=== PATIENT | female | born 1965 | race Hispanic/Latino ===

== ENCOUNTER 2016-10-21 08:14 | Inpatient (IN) | payer MEDICAID, OTHER ==
[2016-10-21 09:23] LABS: BASO # 0.02 K/mm3 (0.0-2.0); BASO % 0.4 % (0.0-3.0); EOS % 0.4 % (1.5-5.0); GRAN # 4.51 (1.4-6.5); GRAN % 81.2 % (50.0-68.0); HEMATOCRIT 26.9 % (36.0-48.0); LYMPH # 0.4 (1.2-3.4); LYMPH % 6.3 % (22.0-35.0); MEAN CELL VOLUME 88.8 fl (80.0-105.0); MEAN CORPUSCULAR HEMOGLOBIN 26.7 pg (25.0-35.0); MEAN CORPUSCULAR HGB CONC 30.1 g/dl (31.0-37.0); MEAN PLATELET VOLUME 10.7 fl (7.0-11.0); MONO # 0.7 (0.1-0.6); MONO % 11.7 % (1.0-6.0); RED CELL DISTRIBUTION WIDTH 16.5 % (11.5-14.5); WHITE BLOOD COUNT 5.6 10^3/ul (4.5-11.0)
[2016-10-21 09:25] LABS: ALB/GLOB RATIO 0.7 (1.1-1.8); ALKALINE PHOSPHATASE 91 U/L (38-126); ALT/SGPT 31 U/L (7-56); AST/SGOT 41 U/L (14-36); BILIRUBIN,TOTAL 0.6 mg/dL (0.2-1.3); BLOOD UREA NITROGEN 9 mg/dL (7-21); CALCIUM 7.7 mg/dL (8.4-10.5); CARBON DIOXIDE 26 mmol/L (21-33); CHLORIDE 98 mmol/L (98-107); GFR AFRICAN-AMERICAN > 60; GLUCOSE,RANDOM 113 mg/dL (70-110); LIPASE 131 U/L (23-300); POTASSIUM 3.2 mmol/L (3.6-5.0); SODIUM 133 mmol/L (132-148)
[2016-10-21 09:28] LABS: INR 1.24 (0.93-1.08); PARTIAL THROMBOPLASTIN TIME 28.6 Seconds (23.7-30.8)
[2016-10-21] MEDS ORDERED: Potassium Chloride 20 mEq ER Tab PO STA (09:30)
--- NOTE | 2016-10-21 09:33 | ED PDOC ---
Arrival/HPI - General Chief Complaint: ENT Problem Time Seen by Provider: 10/21/16 08:20 Historian: Patient - History of Present Illness Narrative History of Present Illness (Text): 10/21/16 08:41 A 51 year old female, whose past medical history includes alcohol abuse and ascites, presents to the emergency department complaining of difficulty swallowing and abdominal bloating for 1 week. Patient reports only able to swallow soft food and can tolerate fluids. Also states abdomen feels "sore" and she gets shortness of breathe on exertion. Patient notes having difficulty sleeping due to symptoms. As a secondary complaint, she mentions currently having shingles for approximately 1 month ago. Patient has never been diagnosed for cancer. Was told her liver was inflamed. Patient notes experiencing shortness of breath when ambulating, weakness, but denies of any fever, nausea, vision changes, lightheadedness, or any other complaints. Patient has taken no medications for symptoms. PMD: Dr. Gillis Time/Duration: 1 week Symptom Onset: Sudden Symptom Course: Unchanged Activities at Onset: Eating (difficulty swallowing food) Context: Home Past Medical History - Provider Review Nursing Documentation Reviewed: Yes - Infectious Disease Hx of Infectious Diseases: None - Tetanus Immunization Tetanus Immunization: Unknown - Cardiac Hx Cardiac Disorders: No - Pulmonary Hx Respiratory Disorders: No - Neurological Hx Neurological Disorder: No - HEENT Hx HEENT Disorder: No - Renal Hx Renal Disorder: No - Endocrine/Metabolic Hx Endocrine Disorders: No - Hematological/Oncological Hx Blood Disorders: Yes Hx Anemia: Yes Hx Cirrhosis: Yes - Integumentary Hx Dermatological Disorder: No - Musculoskeletal/Rheumatological Hx Arthritis: Yes Hx Falls: Yes - Gastrointestinal Hx Gastrointestinal Disorders: Yes Other/Comment: umbilical hernia, 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, paracentesis - Genitourinary/Gynecological Hx Genitourinary Disorders: No - Psychiatric Hx Psychophysiologic Disorder: Yes Hx Anxiety: Yes Hx Depression: Yes Hx Substance Use: No Other/Comment: eating disorder with self-induced vomiting - Surgical History Hx Orthopedic Surgery: Yes (Mandibular fx) - Anesthesia Hx Anesthesia: No Hx Anesthesia Reactions: No Hx Malignant Hyperthermia: No - Suicidal Assessment Feels Threatened In Home Enviroment: No Family/Social History - Physician Review Nursing Documentation Reviewed: Yes Family/Social History: No Known Family HX Smoking Status: Never Smoked Hx Alcohol Use: Yes (6 beers daily) Frequency of alcohol use: Socially Amount per day: 6 Hx Substance Use: No Hx Substance Use Treatment: No Allergies/Home Meds Allergies/Adverse Reactions: Allergies No Known Allergies Allergy (Verified 11/02/15 01:19) Review of Systems - Physician Review All systems were reviewed & negative as marked: Yes - Review of Systems Constitutional: Other (weakness). absent: Fevers Eyes: absent: Vision Changes Respiratory: SOB (when ambulating) Gastrointestinal: Abdominal Pain (distended). absent: Nausea Neurological: absent: Dizziness Physical Exam Vital Signs Reviewed: Yes Vital Signs Temp Pulse Resp BP Pulse Ox 10/21/16 09:50 105 H 19 106/68 100 10/21/16 08:15 98.8 F 116 H 23 108/73 100 Temperature: Afebrile Blood Pressure: Normal Pulse: Tachycardic Respiratory Rate: Normal Appearance: Positive for: Well-Appearing Pain Distress: None Mental Status: Positive for: Alert and Oriented X 3 - Systems Exam Head: Present: Atraumatic, Normocephalic Pupils: Present: PERRL Extroacular Muscles: Present: EOMI Conjunctiva: Present: Normal Mouth: Present: Moist Mucous Membranes Neck: Present: Normal Range of Motion Respiratory/Chest: Present: Clear to Auscultation Cardiovascular: Present: Regular Rate and Rhythm, Normal S1, S2. No: Murmurs Abdomen: Present: Tenderness (epigastric tenderness), Distention (positive ascites), Guarding. No: Peritoneal Signs, Other Back: Present: Normal Inspection Upper Extremity: Present: Normal Inspection. No: Cyanosis, Edema Lower Extremity: Present: Normal Inspection. No: Edema Neurological: Present: GCS=15, CN II-XII Intact, Speech Normal Skin: Present: Rashes (face) Psychiatric: Present: Alert, Oriented x 3, Normal Insight, Normal Concentration Medical Decision Making ED Course and Treatment: 10/21/16 08:48 Impression: 51 year old female with difficulty swallowing and abdominal bloating. Physical exam shows facial rashes; clear lungs; distended abdomen, epigastric tenderness with guarding, no peritoneal problems. Differential Diagnosis included but are not limited to: Ascites with shortness of breath; Possible Herpes Zoster on face with no visual changes Plan: -- Abdomen Ultrasound -- Labs -- Calcium Gluconate -- Pepcid -- Urinalysis -- Reassess and disposition Prior Visits: Notes and results from previous visits were reviewed. Patient was last seen in the emergency department on 11/02/2015 for leg swelling. Patient was admitted. Progress Notes: 10/21/16 10:[address] Rivas who will accept patient to his service to Remote Telemetry. Calcium and Potassium replaced. - Lab Interpretations Lab Results: 10/21/16 08:25 10/21/16 08:25 Lab Results 10/21/16 08:25: Ammonia < 9 L 10/21/16 08:25: Sodium 133, Potassium 3.2 L, Chloride 98, Carbon Dioxide 26, Anion Gap 12, BUN 9, Creatinine 0.6, Est GFR ( Amer) > 60, Est GFR (Non- Af Amer) > 60, Random Glucose 113 H, Calcium 7.7 L, Magnesium 1.7, Total Bilirubin 0.6, AST 41 H, ALT 31, Alkaline Phosphatase 91, Total Protein 6.0, Albumin 2.5 L, Globulin 3.5, Albumin/Globulin Ratio 0.7 L, Lipase 131 10/21/16 08:25: PT 13.4 H, INR 1.24 H, APTT 28.6 10/21/16 08:25: WBC 5.6 D, RBC 3.03 L, Hgb 8.1 L, Hct 26.9 L, MCV 88.8, MCH 26.7, MCHC 30.1 L, RDW 16.5 H, Plt Count 170, MPV 10.7, Gran % 81.2 H, Lymph % ( Auto) 6.3 L, [place] % (Auto) 11.7 H, Eos % (Auto) 0.4 L, Baso % (Auto) 0.4, Gran # 4.51, Lymph # 0.4 L, [place] # 0.7 H, Eos # 0.0, Baso # 0.02 - RAD Interpretation Radiology Orders: 10/21/16 08:59 ABDOMEN COMPLETE [US] Stat - Medication Orders Current Medication Orders: Calcium Gluconate (Calcium Gluconate Iv) 1,000 mg IVP ONCE ONE Stop: 10/21/16 09:57 Discontinued Medications Famotidine (Pepcid) 20 mg IVP STAT STA Stop: 10/21/16 09:00 Last Admin: 10/21/16 09:13 Dose: 20 mg Potassium Chloride (Potassium Chloride Oral Soln) 40 meq PO STAT STA Stop: 10/21/16 09:56 - Scribe Statement The provider has reviewed the documentation as recorded by the Holly Ponce Provider Scribe Attestation: All medical record entries made by the Scribe were at my direction and personally dictated by me. I have reviewed the chart and agree that the record accurately reflects my personal performance of the history, physical exam, medical decision making, and the department course for this patient. I have also personally directed, reviewed, and agree with the discharge instructions and disposition. Disposition/Present on Arrival - Present on Arrival Any Indicators Present on Arrival: No History of DVT/PE: No History of Uncontrolled Diabetes: No Urinary Catheter: No History of Decub. Ulcer: No History Surgical Site Infection Following: None - Disposition Have Diagnosis and Disposition been Completed?: Yes Diagnosis: Ascites, Hypocalcemia, Hypokalemia Disposition: HOSPITALIZED Disposition Time: 10:09 Patient Plan: Admission Condition: FAIR Forms: [employer] (Martiniquais)
[2016-10-21 09:40] LABS: MAGNESIUM 1.7 mg/dL (1.7-2.2)
[2016-10-21] MEDS ORDERED: Potassium Chloride 40 mEq/30 ml LIQ UD PO STA (09:55)
--- NOTE | 2016-10-21 10:06 | US ---
HISTORY: abd pain r/o cholecytitis, ascites COMPARISON: None. TECHNIQUE: Sonographic evaluation of the abdomen. FINDINGS: LIVER: Measures 16.1 cm. Diffusely increased echogenicity of the liver parenchyma. Nodular contour consistent with hepatic cirrhosis. No mass. No biliary ductal dilatation. GALLBLADDER: Contracted. No gallstones. Thickened wall, nonspecific. COMMON BILE DUCT: Measures 4 mm. No stones. No dilatation. PANCREAS: Grossly limited visualization. Obscured by bowel gas. RIGHT KIDNEY: Measures 8.8cm. Normal echogenicity. No calculus, mass, or hydronephrosis. LEFT KIDNEY: Measures 8.9cm. Normal echogenicity. No calculus, mass, or hydronephrosis. SPLEEN: Normal in size and contour. No mass. AORTA: Obscured IVC: Obscured OTHER FINDINGS: Extensive ascites. IMPRESSION: Hepatic cirrhosis. Extensive ascites. No evidence of cholelithiasis. Thickened gallbladder wall, nonspecific.
[2016-10-21 13:58] LABS: URINE BILIRUBIN NEGATIVE (NEGATIVE); URINE BLOOD TRACE-INTACT (NEGATIVE); URINE GLUCOSE (UA) NEGATIVE (NEGATIVE); URINE KETONE TRACE mg/dL (NEGATIVE); URINE LEUKOCYTE ESTERASE NEGATIVE Leu/uL (NEGATIVE); URINE PROTEIN NEGATIVE mg/dL (<30 mg/dL); URINE UROBILINOGEN 0.2 E.U./dL (<1 E.U./dL)
[2016-10-21 13:59] LABS: URINE APPEARANCE CLEAR (CLEAR); URINE COLOR YELLOW (YELLOW)
--- NOTE | 2016-10-21 14:01 | CP.PCM.HP ---
<Ger Dickson - Last Filed: 10/21/16 16:34> History of Present Illness - History of Present Illness History of Present Illness: CC: Dysphagia, Ascites, Alcohol withdrawal HPI: Pt is a 51 yo F with significant PMH for alcohol abuse and cirrhosis, who reports 6 week history of dysphagia and abdominal swelling that has become progressively worse. She reports that has only been able to swallow soft foods and fluids, and has not been eating much. She states that her abdomen has become so swollen that it is pressing up into her chest, making it difficult to breathe even on mild exertion. She also reports that she has not had a bowel movement for the past 2 weeks, and has only been passing mucous. Pt has a longstanding history of alcohol abuse and was found to have cirrhosis in the past. She states that she has tried to quit, but is now drinking again; last drink was last night, 2-3 shots. She additionally reports shingles to her face for the past 6 weeks. Denies current nausea, vomiting, fevers, acute abdominal pain, chest pain, palpitations, recent cold symptoms, headache, N/T/W of the feet, urinary sx, or peripheral edema. Pt is a poor historian. In the ED, she was given potassium chloride and calcium gluconate for hypokalemia and hypocalcemia, and had an ultrasound of the abdomen showing hepatic cirrhosis and extensive ascites. On admission, patient was put on CIWA precautions, and treated for alcohol withdrawal. GI and IR teams were consulted for possible performance of paracentesis. PMD: Saleeb PMHX: Alcohol abuse, cirrhosis, depression, anxiety PSHX: Jaw fx & repair 15 years ago Prior Hospitalizations: Seen in 2016 for similar complaints Meds: States that she sometimes takes 12 aspirin throughout the day to help her go to sleep; denies other home medications Allergies: denies, NKDA Family hx: father - [place]; mother - [place] Social hx: - EtOH abuse x 20 years - denies tobacco use or recreational drugs - lives with brother - unemployed - does not have insurance Present on Admission - Present on Admission Any Indicators Present on Admission: No Review of Systems - Constitutional Constitutional: As Per HPI - EENT Eyes: As Per HPI, Tunnel Vision Ears: As Per HPI Nose/Mouth/Throat: As Per HPI - Cardiovascular Cardiovascular: As Per HPI - Respiratory Respiratory: As Per HPI - Gastrointestinal Gastrointestinal: As Per HPI - Musculoskeletal Musculoskeletal: As Per HPI - Integumentary Integumentary: As Per HPI - Neurological Neurological: As Per HPI - Psychiatric Psychiatric: As Per HPI - Endocrine Endocrine: As Per HPI - Hematologic/Lymphatic Hematologic: As Per HPI Past Patient History - Infectious Disease Hx of Infectious Diseases: None - Tetanus Immunizations Tetanus Immunization: Unknown - Past Medical History & Family History Past Medical History?: Yes - Past Social History Smoking Status: Never Smoked - CARDIAC Hx Cardiac Disorders: No - PULMONARY Hx Respiratory Disorders: No - NEUROLOGICAL Hx Neurological Disorder: No - HEENT Hx HEENT Problems: No - RENAL Hx Chronic Kidney Disease: No - ENDOCRINE/METABOLIC Hx Endocrine Disorders: No - HEMATOLOGICAL/ONCOLOGICAL Hx Blood Disorders: Yes Hx Anemia: Yes Hx Cirrhosis: Yes - INTEGUMENTARY Hx Dermatological Problems: No - MUSCULOSKELETAL/RHEUMATOLOGICAL Hx Arthritis: Yes Hx Falls: Yes - GASTROINTESTINAL Hx Gastrointestinal Disorders: Yes Other/Comment: umbilical hernia, 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, paracentesis - GENITOURINARY/GYNECOLOGICAL Hx Genitourinary Disorders: No - PSYCHIATRIC Hx Psychophysiologic Disorder: Yes Hx Anxiety: Yes Hx Depression: Yes Hx Substance Use: No Other/Comment: eating disorder with self-induced vomiting - SURGICAL HISTORY Hx Orthopedic Surgery: Yes (Mandibular fx) - ANESTHESIA Hx Anesthesia: No Hx Anesthesia Reactions: No Hx Malignant Hyperthermia: No Meds Allergies/Adverse Reactions: Allergies Allergy/AdvReac Type Severity Reaction Status Date / Time No Known Allergies Allergy Verified 10/21/16 18:47 Physical Exam - Head Exam Head Exam: ATRAUMATIC, NORMAL INSPECTION, NORMOCEPHALIC - Eye Exam Eye Exam: EOMI, Normal appearance, PERRL. absent: Periorbital tenderness Pupil Exam: NORMAL ACCOMODATION, PERRL. absent: Irregular - ENT Exam ENT Exam: Mucous Membranes Moist, Normal Exam - Neck Exam Neck exam: Positive for: Normal Inspection. Negative for: Tenderness - Respiratory Exam Respiratory Exam: Clear to Auscultation Bilateral, NORMAL BREATHING PATTERN - Cardiovascular Exam Cardiovascular Exam: REGULAR RHYTHM, RRR, +S1, +S2. absent: Rubs - GI/Abdominal Exam GI & Abdominal Exam: Distended, Firm, Hernia Additional comments: Caput Medusae noted. - Extremities Exam Extremities exam: Positive for: normal inspection - Neurological Exam Neurological exam: Alert, CN II-XII Intact, Oriented x3 - Psychiatric Exam Psychiatric exam: Depressed - Skin Skin Exam: Dry Results - Vital Signs Recent Vital Signs: Last Vital Signs Temp 98.6 F 10/21/16 11:07 Pulse 114 H 10/21/16 13:46 Resp 19 10/21/16 13:46 BP 103/69 10/21/16 13:46 Pulse Ox 96 10/21/16 13:46 - Labs Result Diagrams: 10/21/16 08:25 10/21/16 08:25 Assessment & Plan - Assessment and Plan (Free Text) Assessment: This is a 51 yr. old female with past medical histor of liver cirrhosis, etoh abuse who presents with dysphagia and abdominal swelling for 6 week.s Plan: 1. Ascites 2/2 cirrhosis -Patient admitted and expected to undergo a Therapeutic and Diagnostic Paracentesis -Ascitic fluid cx will be sent. -MELD Score of 9( has a 1.9% risk of mortality) - GI consult ordered. F/U with recs. - IR consult ordered. F/U with recs. - 2. Dysphagia -Order Speech and Swallow Eval -Advance diet as tolerated. -GI consult ordered. F/U with rec's 3. Anemia - Monitor H/H - Transfuse Hgb if under 7 - Iron studies panel if blood count continues to drop. 4. Abnormal electrolytes - Calcium gluconate & potassium chloride given to replete hypocalcemia & hypokalemia -Continue to monitor with serial CMP's. Will replete as needed. 5. Alcohol abuse/Withdrawal - urine alcohol & drug screen - counseled on EtOH cessation -Monitor for withdrawal symptoms. -CIWA protocol, Seizure protocol, Fall Protocols ordered. 6. Shingles -currently not complaining of pain. -Will monitor closely. GI & DVT PPX - Protonix - SCDs <Cory Ramachandran - Last Filed: 10/22/16 16:34> Results - Vital Signs Recent Vital Signs: Last Vital Signs Temp 99.5 F 10/22/16 09:07 Pulse 108 H 10/22/16 06:00 Resp 20 10/22/16 06:00 BP 93/63 L 10/22/16 06:00 Pulse Ox 95 10/22/16 06:00 - Labs Result Diagrams: 10/22/16 06:10 10/22/16 06:10 Labs: Laboratory Results - last 24 hr 0910/22/16 10/22/16 16:00 06:10 06:10 WBC 4.6 RBC 2.64 L Hgb 7.1 L Hct 23.6 L MCV 89.4 MCH 26.9 MCHC 30.1 L RDW 16.9 H Plt Count 149 MPV 10.4 Sodium 132 Potassium 3.3 L Chloride 104 Carbon Dioxide 23 Anion Gap 8 L BUN 8 Creatinine 0.6 Est GFR ( Amer) > 60 Est GFR (Non-Af Amer) > 60 Random Glucose 100 Calcium 7.4 L Magnesium 1.6 L Total Bilirubin 0.7 AST 24 ALT 35 Alkaline Phosphatase 75 Total Protein 5.3 L Albumin 2.1 L Globulin 3.2 Albumin/Globulin Ratio 0.7 L Fluid Source Fluid Appearance Fluid WBC Fluid RBC Fluid Tot Cell Count Fluid Neutrophils Fluid Lymphocytes Fld Monocyte/Macrophag Fluid Comment Urine Opiates Screen Negative Urine Methadone Screen Negative Ur Barbiturates Screen Negative Ur Phencyclidine Scrn Negative Ur Amphetamines Screen Negative U Benzodiazepines Scrn Negative U Oth Cocaine Metabols Negative U Cannabinoids Screen Negative BBK History Checked 10/22/16 10/22/16 11:36 16:10 WBC RBC Hgb Hct MCV MCH MCHC RDW Plt Count MPV Sodium Potassium Chloride Carbon Dioxide Anion Gap BUN Creatinine Est GFR ( Amer) Est GFR (Non-Af Amer) Random Glucose Calcium Magnesium Total Bilirubin AST ALT Alkaline Phosphatase Total Protein Albumin Globulin Albumin/Globulin Ratio Fluid Source Peritoneal/ascites Fluid Appearance Cloudy Fluid WBC 100.0 Fluid RBC 326.0 H Fluid Tot Cell Count 100 H Fluid Neutrophils 54.0 H Fluid Lymphocytes 46.0 H Fld Monocyte/Macrophag 0 Fluid Comment TEST NOT PERFORMED Urine Opiates Screen Urine Methadone Screen Ur Barbiturates Screen Ur Phencyclidine Scrn Ur Amphetamines Screen U Benzodiazepines Scrn U Oth Cocaine Metabols U Cannabinoids Screen BBK History Checked Patient has bt Attending/Attestation - Attestation I have personally seen and examined this patient.: Yes I have fully participated in the care of the patient.: Yes I have reviewed all pertinent clinical information: Yes Notes (Text): 10/22/16 16:26 Attending note; Patient seen and examined with resident. Patient is a 51 yo Female with significant PMH for alcohol abuse and cirrhosis, who reports 6 week history of dysphagia and abdominal swelling that has become progressively worse. Currently with significant ascites. Alcohol abuse/alcoholic cirrhosis with ascites; complete alcohol cessation is strongly recommended. Monitored in telemetry. IV Ativan ordered for withdrawal symptoms. Continue multivitamin, thiamine, folic acid. GERD/dysphagia; monitor closely. GI evaluation requested. Intervention radiology evaluation requested for paracentesis. The diagnosis and prognosis explained in detail. Upon discharge the patient will follow-up with PMD . 10/22/16 16:31 10/22/16 16:33
[2016-10-21 14:09] LABS: URINE RBC 0 - 2 /hpf (0-2); URINE WBC 0 - 2 /hpf (0-6)
[2016-10-21] MEDS ORDERED: Pneumococcal 23-Valent Vaccine IM ONE (20:33)
[2016-10-21 20:34] VITALS: BMI 18.5
[2016-10-22 06:26] LABS: MEAN CELL VOLUME 89.4 fl (80.0-105.0); MEAN CORPUSCULAR HEMOGLOBIN 26.9 pg (25.0-35.0); MEAN CORPUSCULAR HGB CONC 30.1 g/dl (31.0-37.0); MEAN PLATELET VOLUME 10.4 fl (7.0-11.0); RED CELL DISTRIBUTION WIDTH 16.9 % (11.5-14.5); WHITE BLOOD COUNT 4.6 10^3/ul (4.5-11.0)
[2016-10-22 06:37] LABS: HEMATOCRIT 23.6 % (36.0-48.0)
[2016-10-22 06:59] LABS: ALB/GLOB RATIO 0.7 (1.1-1.8); ALKALINE PHOSPHATASE 75 U/L (38-126); ALT/SGPT 35 U/L (7-56); AST/SGOT 24 U/L (14-36); BILIRUBIN,TOTAL 0.7 mg/dL (0.2-1.3); BLOOD UREA NITROGEN 8 mg/dL (7-21); CALCIUM 7.4 mg/dL (8.4-10.5); CARBON DIOXIDE 23 mmol/L (21-33); CHLORIDE 104 mmol/L (95-110); GFR AFRICAN-AMERICAN > 60; GLUCOSE,RANDOM 100 mg/dL (70-110); MAGNESIUM 1.6 mg/dL (1.7-2.2); POTASSIUM 3.3 mmol/L (3.6-5.0); SODIUM 132 mmol/L (132-148); TOTAL PROTEIN 5.3 g/dL (5.8-8.3)
[2016-10-22] MEDS: Multivitamin With Minerals Tab PO SCH (09:18)
--- NOTE | 2016-10-22 10:12 | CARD ---
APPROVED REPORT EKG Measurement Heart [id number] <Conclusion> Sinus tachycardia Low voltage QRS Borderline ECG
[2016-10-22] MEDS ORDERED: POLYMYXIN B TOP ONE (10:48)
[2016-10-22] MEDS ORDERED: BACITRACIN TOP ONE (10:48)
[2016-10-22 11:52] LABS: BODY FLUID TYPE PERITONEAL/ASCITES
[2016-10-22 12:09] LABS: BF GROSS APPEARANCE CLOUDY (CLEAR); BODY FLUID TOTAL COUNT 100 (0-0)
[2016-10-22] MEDS ORDERED: Barium Sulfate Susp 2.1% w/v, 2.0% w/w 450 mL Bottle PO ONE (12:27)
[2016-10-22] MEDS ORDERED: Iohexol 300 100 ML IJ ONE (14:19)
--- NOTE | 2016-10-22 15:32 | CP.PCM.PN ---
<Ger Dickson - Last Filed: 10/22/16 16:35> Subjective - Date & Time of Evaluation Date of Evaluation: 10/22/16 Time of Evaluation: 10:29 - Subjective Subjective: This patient was seen and examined at bedside. The reports no change in her abdominal discomfort since yesterday. The patient reports one bowel movement and denies blood but reports some mucus in it. The patient denies any chest pain, shortness of breath, nausea, vomiting, dizziness, changes in vision, palpitations, or any other complaints. Objective - Vital Signs/Intake and Output Vital Signs (last 24 hours): Temp Pulse Resp BP Pulse Ox 99.5 F 108 H 20 93/63 L 95 10/22/16 09:07 10/22/16 06:00 10/22/16 06:00 10/22/16 06:00 10/22/16 06:00 Intake and Output: 10/22/16 10/22/16 06:59 18:59 Intake Total 300 900 Output Total 0 Balance 300 900 - Medications Medications: Current Medications Lorazepam (Ativan) 1 mg IVP Q3 PRN; Protocol PRN Reason: Agitation Multivitamins/Minerals (Therapeutic-M Tab) 1 tab PO 0800 [facility] Last Admin: 10/22/16 09:18 Dose: 1 tab Ondansetron HCl (Zofran Inj) 4 mg IVP Q4H PRN PRN Reason: Nausea/Vomiting Pantoprazole Sodium (Protonix Inj) 40 mg IVP DAILY [facility] Last Admin: 10/22/16 10:19 Dose: 40 mg Thiamine HCl (Vitamin B1 Tab) 100 mg PO DAILY [facility] Last Admin: 10/22/16 09:18 Dose: 100 mg - Labs Labs: 10/22/16 06:10 10/22/16 06:10 PT 13.4 Seconds (9.9-11.8) H 10/21/16 08:25 INR 1.24 (0.93-1.08) H 10/21/16 08:25 APTT 28.6 Seconds (23.7-30.8) 10/21/16 08:25 - Head Exam Head Exam: ATRAUMATIC, NORMAL INSPECTION, NORMOCEPHALIC - Eye Exam Eye Exam: EOMI, Normal appearance, PERRL Pupil Exam: NORMAL ACCOMODATION, PERRL. absent: Irregular - ENT Exam ENT Exam: Mucous Membranes Moist - Neck Exam Neck Exam: Normal Inspection - Respiratory Exam Respiratory Exam: Clear to Ausculation Bilateral, NORMAL BREATHING PATTERN. absent: Accessory Muscle Use, Chest Wall Tenderness, Prolonged Expiratory Phase - Cardiovascular Exam Cardiovascular Exam: REGULAR RHYTHM, RRR, +S1, +S2. absent: Rubs - GI/Abdominal Exam Additional comments: Caput madusae appreciated. Swelling noted. - Back Exam Back Exam: NORMAL INSPECTION. absent: paraspinal tenderness - Neurological Exam Neurological Exam: Alert, Awake, CN II-XII Intact - Psychiatric Exam Psychiatric exam: Normal Affect - Skin Additional comments: abdominal vein engorgement 2/2 to etoh abuse Assessment and Plan - Assessment and Plan (Free Text) Assessment: This is a 51 yr. old female with past medical history of liver cirrhosis, etoh abuse who presents with dysphagia and abdominal swelling for 6 weeks. Plan: 1. Ascites 2/2 cirrhosis -Patient admitted and underwent a Therapeutic and Diagnostic Paracentesis today. -Ascitic fluid cx will be sent. -MELD Score of 9( has a 1.9% risk of mortality) - GI consult ordered. F/U with recs. - IR consult ordered. F/U with recs. -Abdomen/pelvis CT pending 2. Dysphagia -Order Speech and Swallow Eval -Advance diet as tolerated. -GI consult ordered. F/U with rec's 3. Anemia - Hgb:7.1. Monitor H/H - Transfuse Hgb if under 7 - Iron studies panel if blood count continues to drop. 4. Abnormal electrolytes - Calcium gluconate & potassium chloride given to replete hypocalcemia & hypokalemia -Continue to monitor with serial CMP's. Will replete as needed. 5. Alcohol abuse/Withdrawal - urine alcohol & drug screen - counseled on EtOH cessation -Monitor for withdrawal symptoms. -CIWA protocol, Seizure protocol, Fall Protocols ordered. 6. Shingles vs. bacterial infection -currently not complaining of pain. Given Bacitracin ointment today -Will monitor closely. GI & DVT PPX - Protonix - SCDs <Cory Ramachandran - Last Filed: 10/22/16 18:58> Objective - Vital Signs/Intake and Output Vital Signs (last 24 hours): Temp Pulse Resp BP Pulse Ox 100.4 F H 67 20 101/68 95 10/22/16 17:35 10/22/16 16:00 10/22/16 16:00 10/22/16 16:00 10/22/16 16:00 Intake and Output: 10/22/16 10/22/16 06:59 18:59 Intake Total 300 900 Output Total 0 Balance 300 900 - Medications Medications: Current Medications Acetaminophen (Tylenol 325mg Tab) 650 mg PO Q4H PRN PRN Reason: Temperature Last Admin: 10/22/16 17:35 Dose: 650 mg Albumin Human (Albumin Human 25% (12.5 Gm/50 Ml)) 12.5 gm IV Q8 [facility] Stop: 10/23/16 06:01 Piperacillin Sod/Tazobactam Sod (Zosyn 3.375 In Ns 100ml) 100 mls @ 200 mls/hr IVPB Q6 [facility] PRN Reason: Protocol Stop: 10/29/16 18:01 Vancomycin HCl (Vancomycin 1gm) 1 gm in 250 mls @ 167 mls/hr IVPB STAT STA PRN Reason: Protocol Stop: 10/22/16 19:25 Lorazepam (Ativan) 1 mg IVP Q3 PRN; Protocol PRN Reason: Agitation Multivitamins/Minerals (Therapeutic-M Tab) 1 tab PO 0800 [facility] Last Admin: 10/22/16 09:18 Dose: 1 tab Ondansetron HCl (Zofran Inj) 4 mg IVP Q4H PRN PRN Reason: Nausea/Vomiting Pantoprazole Sodium (Protonix Inj) 40 mg IVP DAILY [facility] Last Admin: 10/22/16 10:19 Dose: 40 mg Thiamine HCl (Vitamin B1 Tab) 100 mg PO DAILY [facility] Last Admin: 10/22/16 09:18 Dose: 100 mg - Labs Labs: 10/22/16 06:10 10/22/16 06:10 PT 13.4 Seconds (9.9-11.8) H 10/21/16 08:25 INR 1.24 (0.93-1.08) H 10/21/16 08:25 APTT 28.6 Seconds (23.7-30.8) 10/21/16 08:25 Attending/Attestation - Attestation I have personally seen and examined this patient.: Yes I have fully participated in the care of the patient.: Yes I have reviewed all pertinent clinical information, including history, physical exam and plan: Yes Notes (Text): 10/22/16 18:54 Attending note; Patient seen and examined with resident. Patient is a 51 yo Female with significant PMH for alcohol abuse and cirrhosis, who reports 6 week history of dysphagia and abdominal swelling that has become progressively worse. Currently with significant ascites. Status post ascites; 4.3 L removed. Started on IV albumen. 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 Possible infectious versus malignant etiology suspected. Culture and cytology ordered. CT abdomen and pelvis ordered to rule out malignancy. Alcohol abuse/alcoholic cirrhosis with ascites; complete alcohol cessation is strongly recommended. IV Ativan ordered for withdrawal symptoms. Continue multivitamin, thiamine, folic acid. Cirrhosis;GI evaluation requested. Dysphagia; swallow evaluation requested. Continue soft diet. Aspiration precautions. Upon discharge the patient will follow-up with PMD .
[2016-10-22] MEDS ORDERED: cefTRIAXone 1 gm 1 GM/100 ML BAG IVPB SCH (16:30)
[2016-10-22] MEDS ORDERED: Potassium Chloride 20 mEq ER Tab PO STA (16:33)
--- NOTE | 2016-10-22 16:40 | CP.PCM.PN ---
<Jena Altman - Last Filed: 10/22/16 16:40> Subjective - Date & Time of Evaluation Date of Evaluation: 10/22/16 Time of Evaluation: 10:00 - Subjective Subjective: seen and examined at the bedside earlier today, the chart was reviewed. Patient denies nausea, vomiting, fever or chills, shortness of breath or chest pain. No acute overnight events reported. Objective - Vital Signs/Intake and Output Vital Signs (last 24 hours): Temp Pulse Resp BP Pulse Ox 99.5 F 108 H 20 93/63 L 95 10/22/16 09:07 10/22/16 06:00 10/22/16 06:00 10/22/16 06:00 10/22/16 06:00 Intake and Output: 10/22/16 10/22/16 06:59 18:59 Intake Total 300 900 Output Total 0 Balance 300 900 - Medications Medications: Current Medications Lorazepam (Ativan) 1 mg IVP Q3 PRN; Protocol PRN Reason: Agitation Multivitamins/Minerals (Therapeutic-M Tab) 1 tab PO 0800 [facility] Last Admin: 10/22/16 09:18 Dose: 1 tab Ondansetron HCl (Zofran Inj) 4 mg IVP Q4H PRN PRN Reason: Nausea/Vomiting Pantoprazole Sodium (Protonix Inj) 40 mg IVP DAILY [facility] Last Admin: 10/22/16 10:19 Dose: 40 mg Thiamine HCl (Vitamin B1 Tab) 100 mg PO DAILY [facility] Last Admin: 10/22/16 09:18 Dose: 100 mg - Labs Labs: 10/22/16 06:10 10/22/16 06:10 PT 13.4 Seconds (9.9-11.8) H 10/21/16 08:25 INR 1.24 (0.93-1.08) H 10/21/16 08:25 APTT 28.6 Seconds (23.7-30.8) 10/21/16 08:25 - Constitutional Appears: No Acute Distress - Head Exam Head Exam: NORMOCEPHALIC - Eye Exam Eye Exam: Normal appearance. absent: Scleral icterus - ENT Exam ENT Exam: Mucous Membranes Moist - Neck Exam Neck Exam: Normal Inspection - Cardiovascular Exam Cardiovascular Exam: +S1, +S2 - GI/Abdominal Exam GI & Abdominal Exam: Soft, Tenderness, Hernia (umbilical). absent: Guarding, Organomegaly, Rebound - Extremities Exam Extremities Exam: Normal Capillary Refill. 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 Herrera. <Olman Herrera V - Last Filed: 10/22/16 23:51> Objective - Vital Signs/Intake and Output Vital Signs (last 24 hours): Temp Pulse Resp BP Pulse Ox 99.7 F H 64 19 97/65 L 99 10/22/16 21:04 10/22/16 22:00 10/22/16 21:04 10/22/16 21:04 10/22/16 21:04 Intake and Output: 10/22/16 10/23/16 18:59 06:59 Intake Total 900 120 Output Total 1 Balance 900 119 - Medications Medications: Current Medications Acetaminophen (Tylenol 325mg Tab) 650 mg PO Q4H PRN PRN Reason: Temperature Last Admin: 10/22/16 17:35 Dose: 650 mg Albumin Human (Albumin Human 25% (12.5 Gm/50 Ml)) 12.5 gm IV Q8 [facility] Stop: 10/23/16 06:01 Last Admin: 10/22/16 20:55 Dose: 12.5 gm Piperacillin Sod/Tazobactam Sod (Zosyn 3.375 In Ns 100ml) 100 mls @ 200 mls/hr IVPB Q6 [facility] PRN Reason: Protocol Stop: 10/29/16 18:01 Lorazepam (Ativan) 1 mg IVP Q3 PRN; Protocol PRN Reason: Agitation Multivitamins/Minerals (Therapeutic-M Tab) 1 tab PO 0800 [facility] Last Admin: 10/22/16 09:18 Dose: 1 tab Ondansetron HCl (Zofran Inj) 4 mg IVP Q4H PRN PRN Reason: Nausea/Vomiting Pantoprazole Sodium (Protonix Inj) 40 mg IVP DAILY [facility] Last Admin: 10/22/16 10:19 Dose: 40 mg Thiamine HCl (Vitamin B1 Tab) 100 mg PO DAILY [facility] Last Admin: 10/22/16 09:18 Dose: 100 mg - Labs Labs: 10/22/16 06:10 10/22/16 06:10 PT 13.4 Seconds (9.9-11.8) H 10/21/16 08:25 INR 1.24 (0.93-1.08) H 10/21/16 08:25 APTT 28.6 Seconds (23.7-30.8) 10/21/16 08:25 Attending/Attestation - Attestation I have personally seen and examined this patient.: Yes I have fully participated in the care of the patient.: Yes I have reviewed all pertinent clinical information, including history, physical exam and plan: Yes Notes (Text): This patient was seen and evaluated here earlier. This is an addendum to the GE progress report dictated by Jena Altman APN Status post large-volume paracentesis, receiving antibiotic woman History of dysphagia. Would request esophagogram 10/22/16 23:50
[2016-10-22] MEDS: Piperacillin/Tazobact 3.375 gm 100 ML IVPB SCH (17:09)
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
[2016-10-22] MEDS ORDERED: Vancomycin 1gm in NS 250ml 1 GM/250 ML BAG IVPB STA (17:56)
[2016-10-22 18:45] LABS: IRON 12 ug/dL (45-180)
--- NOTE | 2016-10-22 18:58 | US ---
PROCEDURE: Ultrasound guided paracentesis. HISTORY: Alcoholic cirrhosis. Recurrent ascites with abdominal pain. Needs paracentesis P PHYSICIAN(S): Andres Lagos MD. TECHNIQUE: The relative risks and indications for the procedure were explained to the patient and informed written consent obtained. Sonography of the abdomen was performed in a supine position. This revealed a moderate amount of non-loculated ascites, greatest in the right lower quadrant. A puncture site was selected and the area was prepped and draped in the usual sterile fashion. 1% Xylocaine was used to anesthetize the skin and soft tissues. A 7 Urdu paracentesis catheter was trocared into the right lower quadrant. Turbid, chylous fluid was aspirated. The appropriate labs were sent. IMPRESSION: Ultrasound-guided paracentesis in the right lower quadrant. Turbid, chylous fluid was aspirated. The appropriate labs were sent.
[2016-10-22] MEDS ORDERED: Sodium Chloride 0.9% 1,000 ML IV STA (20:01)
[2016-10-22] MEDS: Albumin Human 25% (12.5 gm/50 ml) IV SCH ×2 (20:55→22:00)
--- NOTE | 2016-10-22 21:09 | CT ---
EXAM: CT Abdomen and Pelvis With Intravenous Contrast CLINICAL HISTORY: 51 years old, female; Condition or disease; Liver condition; Cirrhosis; Additional info: R/O hepatoma, cirrhosis TECHNIQUE: Axial computed tomography images of the abdomen and pelvis with intravenous contrast. All CT scans at this facility use one or more dose reduction techniques, viz.: automated exposure control; ma/kV adjustment per patient size (including targeted exams where dose is matched to indication; i.e. head); or iterative reconstruction technique. Coronal and sagittal reformatted images were created and reviewed. CONTRAST: 100 mL of omni 300 administered intravenously. COMPARISON: CT - ABD PELVIS W/O PO OR IV CONT 11/02/2015 FINDINGS: Lower thorax: Minimal atelectasis/scarring. ABDOMEN: Liver: Lobulated contour. Increased heterogeneity of liver parenchyma compared to previous examination with apparent multiple subcentimeter hypodensities. Gallbladder and bile ducts: No calcified stones. No ductal dilation. Pancreas: No ductal dilation. No mass. Spleen: No splenomegaly. Adrenals: No mass. Kidneys and ureters: No mass. No hydronephrosis. Stomach and bowel: Apparent mild mural thickening of several loops of small bowel. Mild mural thickening versus underdistention cecum, proximal ascending colon. No obstruction. Appendix: No findings to suggest acute appendicitis. PELVIS: Bladder: Apparent mild bladder wall thickening. Incomplete distention, limiting evaluation. Reproductive: Unremarkable as visualized. ABDOMEN and PELVIS: Intraperitoneal space: Moderate to large free fluid within abdomen and pelvis. Bones/joints: No acute fracture. Soft tissues: Small umbilical hernia containing fluid. Vasculature: Mild varices within upper abdomen. No aneurysm. Lymph nodes: No pathologically enlarged lymph nodes. IMPRESSION: 1. Cirrhosis. Increase in heterogeneity of liver parenchyma. Underlying malignancy/metastases not excluded. Recommend MRI. 2. Moderate to large ascites. 3. Possible enteritis/colitis, nonspecific. 4. Mild cystitis vs underdistention. Correlate with urinalysis. 5. Incidental/non-acute findings are described above.
[2016-10-22 21:39] LABS: FOLATE 11.8 ng/mL
[2016-10-23] MEDS: Piperacillin/Tazobact 3.375 gm 100 ML IVPB SCH ×4 (00:05→17:02)
[2016-10-23] MEDS ORDERED: Sodium Chloride 0.9% 500 ML IV STA (00:45)
[2016-10-23] MEDS ORDERED: Albumin Human 25% (25 gm/100 ml) IV STA (02:21)
[2016-10-23] MEDS: Sodium Chloride 0.9% 1,000 ML IV SCH ×2 (04:35→20:32)
[2016-10-23] MEDS: Albumin Human 25% (12.5 gm/50 ml) IV SCH (05:24)
[2016-10-23 06:25] LABS: MEAN CELL VOLUME 89.5 fl (80.0-105.0); MEAN CORPUSCULAR HEMOGLOBIN 27.1 pg (25.0-35.0); MEAN CORPUSCULAR HGB CONC 30.3 g/dl (31.0-37.0); MEAN PLATELET VOLUME 10.6 fl (7.0-11.0); RED CELL DISTRIBUTION WIDTH 16.8 % (11.5-14.5); WHITE BLOOD COUNT 3.1 10^3/ul (4.5-11.0)
[2016-10-23 06:43] LABS: ALB/GLOB RATIO 0.8 (1.1-1.8); ALKALINE PHOSPHATASE 49 U/L (38-126); ALT/SGPT 30 U/L (7-56); AST/SGOT 20 U/L (14-36); BILIRUBIN,TOTAL 0.6 mg/dL (0.2-1.3); BLOOD UREA NITROGEN 5 mg/dL (7-21); CALCIUM 7.2 mg/dL (8.4-10.5); CARBON DIOXIDE 23 mmol/L (21-33); CHLORIDE 108 mmol/L (95-110); GFR AFRICAN-AMERICAN > 60; GLUCOSE,RANDOM 83 mg/dL (70-110); POTASSIUM 3.1 mmol/L (3.6-5.0); SODIUM 136 mmol/L (132-148); TOTAL PROTEIN 5.1 g/dL (5.8-8.3)
[2016-10-23 06:46] LABS: HEMATOCRIT 22.1 % (36.0-48.0)
[2016-10-23] MEDS: Multivitamin With Minerals Tab PO SCH (08:28)
--- NOTE | 2016-10-23 12:37 | CP.PCM.PN ---
<[place] - Last Filed: 10/23/16 12:50> Subjective - Date & Time of Evaluation Date of Evaluation: 10/23/16 Time of Evaluation: 10:30 - Subjective Subjective: Patient was seen and examined at bedside this morning. Per nursing, the patient became hypotensive overnight (BP 74/44). The patient was given albumin which brought up her blood pressure up to 89/56. The patient was reporting of feeling better today. The patient denies any chest pain, shortness of breath, nausea, vomiting, lightheaded, dizzy, changes in vision, or any other complaints. Objective - Vital Signs/Intake and Output Vital Signs (last 24 hours): Temp Pulse Resp BP Pulse Ox 99 F 100 H 18 102/61 100 10/23/16 12:26 10/23/16 12:26 10/23/16 12:26 10/23/16 12:26 10/23/16 08:19 Intake and Output: 10/23/16 10/23/16 06:59 18:59 Intake Total 2019 0 Output Total Balance 2018 0 - Medications Medications: Current Medications Acetaminophen (Tylenol 325mg Tab) 650 mg PO Q4H PRN PRN Reason: Temperature Last Admin: 10/22/16 17:35 Dose: 650 mg Albumin Human (Albumin Human 25% (12.5 Gm/50 Ml)) 12.5 gm IV Q8 [facility] Stop: 10/23/16 14:01 Piperacillin Sod/Tazobactam Sod (Zosyn 3.375 In Ns 100ml) 100 mls @ 200 mls/hr IVPB Q6 [facility] PRN Reason: Protocol Stop: 10/29/16 18:01 Last Admin: 10/23/16 05:26 Dose: 200 mls/hr Sodium Chloride (Sodium Chloride 0.9%) 1,000 mls @ 75 mls/hr IV .[id number] [facility] Last Admin: 10/23/16 04:35 Dose: 75 mls/hr Lorazepam (Ativan) 1 mg IVP Q3 PRN; Protocol PRN Reason: Agitation Multivitamins/Minerals (Therapeutic-M Tab) 1 tab PO 0800 [facility] Last Admin: 10/23/16 08:28 Dose: 1 tab Ondansetron HCl (Zofran Inj) 4 mg IVP Q4H PRN PRN Reason: Nausea/Vomiting Pantoprazole Sodium (Protonix Inj) 40 mg IVP DAILY [facility] Last Admin: 10/23/16 10:18 Dose: 40 mg Thiamine HCl (Vitamin B1 Tab) 100 mg PO DAILY [facility] Last Admin: 10/23/16 10:18 Dose: 100 mg - Labs Labs: 10/23/16 06:00 10/23/16 06:00 PT 13.4 Seconds (9.9-11.8) H 10/21/16 08:25 INR 1.24 (0.93-1.08) H 10/21/16 08:25 APTT 28.6 Seconds (23.7-30.8) 10/21/16 08:25 - Head Exam Head Exam: ATRAUMATIC, NORMAL INSPECTION, NORMOCEPHALIC - Eye Exam Eye Exam: EOMI, Normal appearance, PERRL. absent: Nystagmus Pupil Exam: NORMAL ACCOMODATION, PERRL. absent: Irregular - ENT Exam ENT Exam: Mucous Membranes Moist, Normal Exam - Neck Exam Neck Exam: Full ROM, Normal Inspection - Respiratory Exam Respiratory Exam: Clear to Ausculation Bilateral, NORMAL BREATHING PATTERN. absent: Accessory Muscle Use, Wheezes - Cardiovascular Exam Cardiovascular Exam: REGULAR RHYTHM, RRR, +S1, +S2. absent: Gallop, Rubs - GI/Abdominal Exam GI & Abdominal Exam: Normal Bowel Sounds - Extremities Exam Extremities Exam: Full ROM - Back Exam Back Exam: NORMAL INSPECTION. absent: paraspinal tenderness - Neurological Exam Neurological Exam: Alert, Awake, CN II-XII Intact - Psychiatric Exam Psychiatric exam: Normal Affect, Normal Mood - Skin Skin Exam: Dry Assessment and Plan - Assessment and Plan (Free Text) Assessment: This is a 51 yr. old female with past medical history of liver cirrhosis, etoh abuse who presents with dysphagia and abdominal swelling for 6 weeks. Plan: 1. Ascites 2/2 cirrhosis -Patient admitted and underwent a Therapeutic and Diagnostic Paracentesis today. -Ascitic fluid cx will be sent. -MELD Score of 9( has a 1.9% risk of mortality) - GI consult ordered. F/U with recs. - IR consult ordered. F/U with recs. -ID consult rec's appreciated. Will order Esophogram. -Abdomen/pelvis CT:showed Cirrhosis, Moderate ascites, Possible enteritis/ colitis, and Mild cystitis 2. Dysphagia -Speech and Swallow Eval pending. -Advance diet as tolerated. -GI consult ordered. F/U with rec's 3. Anemia - Hgb:6.7. Patient was Type and Crossmatched. Patient given 1 Unit of PRBC's. - Monitor H/H - Transfuse Hgb if under 7 - Iron studies panel if blood count continues to drop. 4. Abnormal electrolytes - Calcium gluconate & potassium chloride given to replete hypocalcemia & hypokalemia -Continue to monitor with serial CMP's. Will replete as needed. 5. Alcohol abuse/Withdrawal - urine alcohol & drug screen - counseled on EtOH cessation -Monitor for withdrawal symptoms. -Continue CIWA protocol, Seizure protocol, Fall Protocols ordered. 6. Shingles vs. bacterial infection -currently not complaining of pain. Given Bacitracin ointment today -Will monitor closely. GI & DVT PPX - Continue Protonix - Continue SCDs <Rob VELASQUEZ,[place] - Last Filed: 10/27/16 17:37> Objective - Vital Signs/Intake and Output Vital Signs (last 24 hours): Temp Pulse Resp BP Pulse Ox 98.8 F 98 H 19 104/57 L 97 10/27/16 08:12 10/27/16 10:00 10/27/16 08:12 10/27/16 10:55 10/27/16 08:12 Intake and Output: 10/27/16 10/27/16 06:59 18:59 Intake Total 1080 0 Balance 1080 0 - Medications Medications: Current Medications Acetaminophen (Tylenol 325mg Tab) 650 mg PO Q4H PRN PRN Reason: Temperature Last Admin: 10/23/16 16:52 Dose: 650 mg Folic Acid (Folic Acid) 1 mg PO DAILY [facility] Last Admin: 10/27/16 09:21 Dose: 1 mg Furosemide (Lasix) 20 mg PO DAILY [facility] Last Admin: 10/27/16 10:55 Dose: 20 mg Lorazepam (Ativan) 1 mg IVP Q3 PRN; Protocol PRN Reason: Agitation Magnesium Oxide (Mag-Ox) 400 mg PO TID [facility] Last Admin: 10/27/16 14:16 Dose: 400 mg Multivitamins/Minerals (Therapeutic-M Tab) 1 tab PO 0800 [facility] Last Admin: 10/27/16 09:22 Dose: Not Given Ondansetron HCl (Zofran Inj) 4 mg IVP Q4H PRN PRN Reason: Nausea/Vomiting Pantoprazole Sodium (Protonix Inj) 40 mg IVP DAILY [facility] Last Admin: 10/27/16 09:22 Dose: 40 mg Spironolactone (Aldactone) 50 mg PO DAILY [facility] Last Admin: 10/27/16 10:55 Dose: 50 mg Thiamine HCl (Vitamin B1 Tab) 100 mg PO DAILY [facility] Last Admin: 10/27/16 09:21 Dose: 100 mg - Labs Labs: 10/27/16 05:20 10/27/16 05:20 PT 14.1 Seconds (9.9-11.8) H 10/24/16 06:40 INR 1.31 (0.93-1.08) H 10/24/16 06:40 APTT 28.6 Seconds (23.7-30.8) 10/21/16 08:25 Attending/Attestation - Attestation I have personally seen and examined this patient.: Yes I have fully participated in the care of the patient.: Yes I have reviewed all pertinent clinical information, including history, physical exam and plan: Yes Notes (Text): 10/27/16 17:33 Patient was seen and examined with medical science liaison. 51 yo Female with significant PMH for alcohol abuse and cirrhosis, who reports 6 week history of dysphagia and abdominal swelling that has become progressively worse. She is status post ascites; 4.3 L removed. 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 Cultures are pending at this time. Patient hemoglobin dropped to 6.7.PRBC .She has been given 1 unit of PRBC.There is no evidence of active GI bleeding.Patient has been evaluated by GI and is scheduled for EGD tomorrow. Management plan was discussed in detail with patient Education was provided. 10/27/16 17:35
[2016-10-23] MEDS ORDERED: Albumin Human 25% (12.5 gm/50 ml) IV SCH (14:00)
--- NOTE | 2016-10-23 14:25 | PN ---
DATE: 10/23/2016 SUBJECTIVE: The patient is in bed, in no acute distress. PHYSICAL EXAMINATION: VITAL SIGNS: Temperature is 99, blood pressure is 90/50, respiratory rate of 18, heart rate of 90. HEENT: Unremarkable. NECK: Supple. LUNGS: Decreased breath sounds. HEART: Normal S1 and S2. ABDOMEN: Soft. LABORATORY EXAMINATION: Reveals a white count of 3.1, hemoglobin of 6.7 and platelets of 110. Chemistries revealed the BUN of 5, creatinine of 0.6. Urinalysis is noted. Peritoneal fluid is noted to have 100 wbc's. Microbiology reveals the ascitic culture has no growth. ASSESSMENT AND PLAN: This is a 51-year-old female with right malar area erythematous lesion, allergic reaction, fungal disease and the patient with alcoholism, liver cirrhosis, ascites, and depression. Currently, on cream. The patient had a CAT scan of the abdomen and pelvis and had a paracentesis not consistent with spontaneous bacterial peritonitis. CAT scan did show cirrhosis, large ascites, mild cystitis. Cultures pending on Zosyn, unremarkable urinalysis. We will follow with you. Yunior Hdz MD
--- NOTE | 2016-10-23 15:55 | CP.PCM.PN ---
<Jena Altman - Last Filed: 10/23/16 15:54> Subjective - Date & Time of Evaluation Date of Evaluation: 10/23/16 Time of Evaluation: 10:00 - Subjective Subjective: seen and examined at the bedside earlier today, status post paracentesis yesterday, removed 4800 cc of ascitic fluid. The patient does report relief, she denies symptoms of dysphagia she is tolerating oral intake. No reports of any overt GI bleed, no acute overnight events reported. She reports grayish greenish BM. Had CT scan of abdomen and pelvis yesterday the report was reviewed: Cirrhosis, increase in heterogenicity of liver parenchyma underlying malignancy/metastasis not excluded, recommended MRI, moderate to large ascites, possible enteritis/ colitis, nonspecific, mild cystitis versus under distention. Objective - Vital Signs/Intake and Output Vital Signs (last 24 hours): Temp Pulse Resp BP Pulse Ox 99.5 F 102 H 18 117/64 100 10/23/16 15:21 10/23/16 15:21 10/23/16 15:21 10/23/16 15:21 10/23/16 08:19 Intake and Output: 10/23/16 10/23/16 06:59 18:59 Intake Total 2019 805 Output Total Balance 2018 805 - Medications Medications: Current Medications Acetaminophen (Tylenol 325mg Tab) 650 mg PO Q4H PRN PRN Reason: Temperature Last Admin: 10/22/16 17:35 Dose: 650 mg Piperacillin Sod/Tazobactam Sod (Zosyn 3.375 In Ns 100ml) 100 mls @ 200 mls/hr IVPB Q6 [facility] PRN Reason: Protocol Stop: 10/29/16 18:01 Last Admin: 10/23/16 12:31 Dose: Not Given Sodium Chloride (Sodium Chloride 0.9%) 1,000 mls @ 75 mls/hr IV .[id number] Last Admin: 10/23/16 04:35 Dose: 75 mls/hr Lorazepam (Ativan) 1 mg IVP Q3 PRN; Protocol PRN Reason: Agitation Multivitamins/Minerals (Therapeutic-M Tab) 1 tab PO 0800 [facility] Last Admin: 10/23/16 08:28 Dose: 1 tab Ondansetron HCl (Zofran Inj) 4 mg IVP Q4H PRN PRN Reason: Nausea/Vomiting Pantoprazole Sodium (Protonix Inj) 40 mg IVP DAILY [facility] Last Admin: 10/23/16 10:18 Dose: 40 mg Thiamine HCl (Vitamin B1 Tab) 100 mg PO DAILY [facility] Last Admin: 10/23/16 10:18 Dose: 100 mg - Labs Labs: 10/23/16 06:00 10/23/16 06:00 PT 13.4 Seconds (9.9-11.8) H 10/21/16 08:25 INR 1.24 (0.93-1.08) H 10/21/16 08:25 APTT 28.6 Seconds (23.7-30.8) 10/21/16 08:25 - Constitutional Appears: No Acute Distress - Head Exam Head Exam: NORMOCEPHALIC - Eye Exam Eye Exam: Normal appearance. absent: Scleral icterus - ENT Exam ENT Exam: Mucous Membranes Moist - Respiratory Exam Respiratory Exam: NORMAL BREATHING PATTERN. absent: Respiratory Distress - Cardiovascular Exam Cardiovascular Exam: +S1, +S2 - GI/Abdominal Exam GI & Abdominal Exam: Distended (less distended, status post paracentesis, pressure dressing dry and intact), Soft, Hernia, Normal Bowel Sounds. absent: Guarding, Tenderness, Rebound - Extremities Exam Extremities Exam: Normal Capillary Refill. 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 Seen and discussed with Dr. Herrera. <Olman Herrera V - Last Filed: 10/23/16 22:14> Objective - Vital Signs/Intake and Output Vital Signs (last 24 hours): Temp Pulse Resp BP Pulse Ox 99.3 F 102 H 18 117/64 99 10/23/16 18:53 10/23/16 16:00 10/23/16 16:00 10/23/16 16:00 10/23/16 16:00 Intake and Output: 10/23/16 10/24/16 18:59 06:59 Intake Total 805 Balance 805 - Medications Medications: Current Medications Acetaminophen (Tylenol 325mg Tab) 650 mg PO Q4H PRN PRN Reason: Temperature Last Admin: 10/23/16 16:52 Dose: 650 mg Piperacillin Sod/Tazobactam Sod (Zosyn 3.375 In Ns 100ml) 100 mls @ 200 mls/hr IVPB Q6 [facility] PRN Reason: Protocol Stop: 10/29/16 18:01 Last Admin: 10/23/16 17:02 Dose: 200 mls/hr Sodium Chloride (Sodium Chloride 0.9%) 1,000 mls @ 75 mls/hr IV .[id number] Last Admin: 10/23/16 20:32 Dose: 75 mls/hr Lorazepam (Ativan) 1 mg IVP Q3 PRN; Protocol PRN Reason: Agitation Multivitamins/Minerals (Therapeutic-M Tab) 1 tab PO 0800 [facility] Last Admin: 10/23/16 08:28 Dose: 1 tab Ondansetron HCl (Zofran Inj) 4 mg IVP Q4H PRN PRN Reason: Nausea/Vomiting Pantoprazole Sodium (Protonix Inj) 40 mg IVP DAILY [facility] Last Admin: 10/23/16 10:18 Dose: 40 mg Thiamine HCl (Vitamin B1 Tab) 100 mg PO DAILY [facility] Last Admin: 10/23/16 10:18 Dose: 100 mg - Labs Labs: 10/23/16 16:30 10/23/16 06:00 PT 13.4 Seconds (9.9-11.8) H 10/21/16 08:25 INR 1.24 (0.93-1.08) H 10/21/16 08:25 APTT 28.6 Seconds (23.7-30.8) 10/21/16 08:25 Attending/Attestation - Attestation I have personally seen and examined this patient.: Yes I have fully participated in the care of the patient.: Yes I have reviewed all pertinent clinical information, including history, physical exam and plan: Yes Notes (Text): This is an addendum to GI progress report dictated by Jena Altman APN.The patient was seen and examined earlier. Medical records, lab studies, imagings were reviewed. Last 24 hours events reviewed. Agreed with the above treatment plan as outlined in Jena Altman,SUBASSEMBLER's notes the with the addition of the following decompensated cirrhosis secondary to EtOH no obvious melena GI bleeding. Drop in blood count could also be partly secondary to hydration patient was hypotensive before had fluid challenge Patient also complaining of intermittent episodes of dysphagia status post large-volume paracentesis Scheduled for a EGD in a.m. 10/23/16 22:13
[2016-10-23 16:47] LABS: HEMATOCRIT 28.8 % (36.0-48.0)
--- NOTE | 2016-10-23 20:37 | CON ---
HISTORY OF PRESENT ILLNESS: The patient is a 51-year-old female with a history of alcohol abuse and ascites. The patient was admitted on the medical side for evaluation of abdominal bloating. The patient was not able to tolerate food. Psych consult was called for evaluation of possible depressive symptoms. The patient was seen and examined. The patient reported that she was not feeling well overnight. The patient also reported that she had low blood pressure. The patient said that she was there irritable and angry overnight because she was waken up every 2 hours because of the low blood pressure. The patient said at present moment she does not feel depressed, she does not want to kill herself or others. The patient denied hearing voices, denied seeing things, denied paranoid ideations. The patient does not present to be psychotic, but mildly irritable. The patient denied anxiety symptoms. The patient reported that she has a history of depression and she went through the therapy when her mother was killed in the motor vehicle accident and the patient was the commercial trailer truck driver. The patient said at present moment she is not on any therapy, she does not need to be on any medication or she does not want to see therapist in the community. The patient said that at present moment she feels fine and she refused to talk to this aligner typewriter further. PHYSICAL EXAMINATION VITAL SIGNS: Stable. Temperature 99.3, pulse 100, blood pressure 93/61, respirations 20, oxygen saturation is 100%. MEDICATIONS: Reviewed. The patient is on Tylenol, Ativan, multivitamin, Zofran, Protonix, Zosyn, sodium chloride, vitamin B1. LABORATORY DATA: Labs reviewed. The patient has WBCs of 3.1, hemoglobin is 6.7 and hematocrit 22.1. Chemistry reviewed. AST and ALT within normal limits. Vitamin B12 is 935. The patient also has potassium 3.1. Urinalysis showed blood trace. Toxicology is negative for any substances. MENTAL STATUS EXAMINATION: The patient appears to be alert and oriented, irritable. Intense eye contact. Speech was underproductive. She has no answers. Mood described "I'm feeling fine, I don't need your help." Affect was constricted. Thought process concrete. Thought content: The patient denied visual, auditory or tactile hallucinations. Denied paranoid ideation. The patient denied thoughts of harming herself or others, denied intents or plan. Insight and judgement seems to be fair. Impulses are well controlled. IMPRESSION: Rule out mood disorder due to general medical condition, rule out alcohol disorder. The patient had traumatic event when her mother was killed in a motor vehicle accident and the patient was the commercial trailer truck driver. The patient denied any flashbacks or nightmares about that event. PLAN: This aligner typewriter does not feel that the patient needs to be on any psychotropic medication. The patient knows resources in the community. The patient was advised in case of the worsening of the symptoms call 911 or just go to the nearest emergency room. The patient knows about therapy as well as has contact information for the previous therapist who she had before. This aligner typewriter will sign off, should you have any questions give me a call back. Please advise the patient to stop drinking as well as discuss Vivitrol shots. Criselda Mc MD
[2016-10-24] MEDS: Piperacillin/Tazobact 3.375 gm 100 ML IVPB SCH ×2 (00:11→05:11)
[2016-10-24 07:29] LABS: BASO # 0.01 K/mm3 (0.0-2.0); BASO % 0.3 % (0.0-3.0); EOS # 0.1 (0.0-0.7); EOS % 1.7 % (1.5-5.0); GRAN # 1.92 (1.4-6.5); GRAN % 66.7 % (50.0-68.0); HEMATOCRIT 28.1 % (36.0-48.0); LYMPH # 0.3 (1.2-3.4); LYMPH % 11.5 % (22.0-35.0); MEAN CELL VOLUME 89.5 fl (80.0-105.0); MEAN CORPUSCULAR HEMOGLOBIN 27.4 pg (25.0-35.0); MEAN CORPUSCULAR HGB CONC 30.6 g/dl (31.0-37.0); MONO # 0.6 (0.1-0.6); MONO % 19.8 % (1.0-6.0)
[2016-10-24 07:37] LABS: INR 1.31 (0.93-1.08)
[2016-10-24 07:45] LABS: ALB/GLOB RATIO 0.8 (1.1-1.8); ALKALINE PHOSPHATASE 47 U/L (38-126); ALT/SGPT 26 U/L (7-56); AST/SGOT 24 U/L (14-36); BILIRUBIN,TOTAL 0.9 mg/dL (0.2-1.3); BLOOD UREA NITROGEN 4 mg/dL (7-21); CALCIUM 7.1 mg/dL (8.4-10.5); CARBON DIOXIDE 22 mmol/L (21-33); CHLORIDE 110 mmol/L (98-107); GFR AFRICAN-AMERICAN > 60; GLUCOSE,RANDOM 83 mg/dL (70-110); POTASSIUM 3.5 mmol/L (3.6-5.0); SODIUM 139 mmol/L (132-148); TOTAL PROTEIN 4.7 g/dL (5.8-8.3)
[2016-10-24 08:01] LABS: WHITE BLOOD COUNT 2.9 10^3/ul (4.5-11.0)
[2016-10-24] MEDS: Sodium Chloride 0.9% 1,000 ML IV SCH ×2 (09:35→20:35)
[2016-10-24] MEDS: Multivitamin With Minerals Tab PO SCH (09:37)
[2016-10-24] MEDS ORDERED: Propofol 10 mg/ml Inj (20 ML) ONE (13:20)
--- NOTE | 2016-10-24 13:21 | PN ---
DATE: 10/25/2016 SUBJECTIVE: The patient is in bed, in no acute distress, nontoxic. PHYSICAL EXAMINATION: VITAL SIGNS: Temperature is 98, blood pressure is 90/60, respiratory rate of 16. HEENT: Unremarkable. NECK: Supple. LUNGS: Decreased breath sounds. HEART: Normal S1 and S2. ABDOMEN: Soft. LABORATORY EXAMINATION: Reveals a white count of 3.1, hemoglobin of 8.9 and chemistries revealed the BUN of 4, creatinine of 0.7. Urinalysis is noted. Peritoneal fluid reveals 100 WBC's, 54% polys, 36% lymphs. Blood cultures have no growth. Ascitic fluid has no growth. Jena Altman's note is reviewed from yesterday. Review of orders reveals the patient to be on Zosyn. ASSESSMENT AND PLAN: This is a 51-year-old female with right malar area erythematous lesion, allergic reaction, fungal disease and the patient with alcoholism, liver cirrhosis, ascites, and depression. CAT scan of the abdomen and pelvis noted. Cultures negative and peritoneal fluid cultures negative and study is negative for infection. No evidence of spontaneous bacterial peritonitis. We will discontinue the Zosyn, and she should be on Cipro 750 mg once weekly for spontaneous bacterial peritonitis, prophylaxis. Yunior Hdz MD
[2016-10-24] MEDS ORDERED: cefTRIAXone (Rocephin) 1 gm Inj ONE (13:28)
[2016-10-24] MEDS ORDERED: Sodium Chloride 0.9% 1,000 ML IV SCH (14:00)
--- NOTE | 2016-10-24 14:56 | CP.PCM.PN ---
<YessiSnow Hill - Last Filed: 10/24/16 15:10> Subjective - Date & Time of Evaluation Date of Evaluation: 10/24/16 Time of Evaluation: 07:54 - Subjective Subjective: Patient was seen and examined at bedside. The patient was reporting some left flank pain s/p paracentesis day 1. She rates the pain a 5/10 in severity. The patient denies any chest pain, shortness of breath, nausea, vomiting, lightheadedness, dizziness, changes in vision, sore throat, or any other complaints Objective - Vital Signs/Intake and Output Vital Signs (last 24 hours): Temp Pulse Resp BP Pulse Ox 99.1 F 84 18 99/68 L 98 10/24/16 14:35 10/24/16 14:35 10/24/16 14:35 10/24/16 14:35 10/24/16 14:35 Intake and Output: 10/24/16 10/24/16 06:59 18:59 Intake Total 500 0 Balance 500 0 - Medications Medications: Current Medications Acetaminophen (Tylenol 325mg Tab) 650 mg PO Q4H PRN PRN Reason: Temperature Last Admin: 10/23/16 16:52 Dose: 650 mg Sodium Chloride (Sodium Chloride 0.9%) 1,000 mls @ 75 mls/hr IV .[id number] [facility] Last Admin: 10/24/16 09:35 Dose: 75 mls/hr Sodium Chloride (Sodium Chloride 0.9%) 1,000 mls @ 75 mls/hr IV .[id number] [facility] Stop: 10/24/16 16:01 Lorazepam (Ativan) 1 mg IVP Q3 PRN; Protocol PRN Reason: Agitation Multivitamins/Minerals (Therapeutic-M Tab) 1 tab PO 0800 [facility] Last Admin: 10/24/16 09:37 Dose: Not Given Ondansetron HCl (Zofran Inj) 4 mg IVP Q4H PRN PRN Reason: Nausea/Vomiting Pantoprazole Sodium (Protonix Inj) 40 mg IVP DAILY [facility] Last Admin: 10/24/16 09:32 Dose: 40 mg Thiamine HCl (Vitamin B1 Tab) 100 mg PO DAILY [facility] Last Admin: 10/24/16 09:37 Dose: Not Given - Labs Labs: 10/24/16 06:40 10/24/16 06:40 PT 14.1 Seconds (9.9-11.8) H 10/24/16 06:40 INR 1.31 (0.93-1.08) H 10/24/16 06:40 APTT 28.6 Seconds (23.7-30.8) 10/21/16 08:25 Assessment and Plan - Assessment and Plan (Free Text) Assessment: This is a 51 yr. old female with past medical history of liver cirrhosis, etoh abuse who presents with dysphagia and abdominal swelling for 6 weeks. Plan: 1. Ascites 2/2 cirrhosis -Patient admitted and underwent a Therapeutic and Diagnostic Paracentesis today. -Ascitic fluid cx will be sent. -MELD Score of 9( has a 1.9% risk of mortality) - GI consult ordered. F/U with recs. - IR consult ordered. F/U with recs. -ID consult rec's appreciated. Will order Esophogram. -Abdomen/pelvis CT:showed Cirrhosis, Moderate ascites, Possible enteritis/ colitis, and Mild cystitis 2. Dysphagia -Currently on regular diet. Patient will be monitored closely. -GI consult ordered. F/U with rec's -EGD showed concerns for possible nasopharyngeal cancer. Will order CT scan of neck with IV contrast. 3. Anemia - Hgb:8.6. Patient was Type and Crossmatched. Patient given 1 Unit of PRBC's. - Monitor H/H - Transfuse Hgb if under 7 - Iron studies panel if blood count continues to drop. 4. Abnormal electrolytes - Calcium gluconate & potassium chloride given to replete hypocalcemia & hypokalemia -Continue to monitor with serial CMP's. Will replete as needed. 5. Alcohol abuse/Withdrawal - urine alcohol & drug screen - counseled on EtOH cessation -Monitor for withdrawal symptoms. -Continue CIWA protocol, Seizure protocol, Fall Protocols ordered. 6. Shingles vs. bacterial infection -currently not complaining of pain. Continue Bacitracin -Will monitor closely. GI & DVT PPX - Continue Protonix - Continue SCDs <Rob VELASQUEZ,[facility] - Last Filed: 10/27/16 17:38> Objective - Vital Signs/Intake and Output Vital Signs (last 24 hours): Temp Pulse Resp BP Pulse Ox 98.8 F 98 H 19 104/57 L 97 10/27/16 08:12 10/27/16 10:00 10/27/16 08:12 10/27/16 10:55 10/27/16 08:12 Intake and Output: 10/27/16 10/27/16 06:59 18:59 Intake Total 1080 0 Balance 1080 0 - Medications Medications: Current Medications Acetaminophen (Tylenol 325mg Tab) 650 mg PO Q4H PRN PRN Reason: Temperature Last Admin: 10/23/16 16:52 Dose: 650 mg Folic Acid (Folic Acid) 1 mg PO DAILY [facility] Last Admin: 10/27/16 09:21 Dose: 1 mg Furosemide (Lasix) 20 mg PO DAILY [facility] Last Admin: 10/27/16 10:55 Dose: 20 mg Lorazepam (Ativan) 1 mg IVP Q3 PRN; Protocol PRN Reason: Agitation Magnesium Oxide (Mag-Ox) 400 mg PO TID [facility] Last Admin: 10/27/16 14:16 Dose: 400 mg Multivitamins/Minerals (Therapeutic-M Tab) 1 tab PO 0800 [facility] Last Admin: 10/27/16 09:22 Dose: Not Given Ondansetron HCl (Zofran Inj) 4 mg IVP Q4H PRN PRN Reason: Nausea/Vomiting Pantoprazole Sodium (Protonix Inj) 40 mg IVP DAILY [facility] Last Admin: 10/27/16 09:22 Dose: 40 mg Spironolactone (Aldactone) 50 mg PO DAILY [facility] Last Admin: 10/27/16 10:55 Dose: 50 mg Thiamine HCl (Vitamin B1 Tab) 100 mg PO DAILY [facility] Last Admin: 10/27/16 09:21 Dose: 100 mg - Labs Labs: 10/27/16 05:20 10/27/16 05:20 PT 14.1 Seconds (9.9-11.8) H 10/24/16 06:40 INR 1.31 (0.93-1.08) H 10/24/16 06:40 APTT 28.6 Seconds (23.7-30.8) 10/21/16 08:25 Attending/Attestation - Attestation I have personally seen and examined this patient.: Yes I have fully participated in the care of the patient.: Yes I have reviewed all pertinent clinical information, including history, physical exam and plan: Yes Notes (Text): 10/27/16 17:37 Patient was seen and examined with medical dosimetrist. Agreed with resident assessment and plan. a 51 yo Female with significant PMH for alcohol abuse and cirrhosis, who reports 6 week history of dysphagia and abdominal swelling that has become progressively worse, was found to have ascites. Status post ascites; 4.3 L removed. 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 Possible infectious versus malignant etiology suspected. Dysphagia; and anemia, SP EGD today that showed possible pharyngeal cancer, CT scan of neck and ENT consult is requested. Management plan was discussed in detail with patient Education was provided.
[2016-10-24 16:30] LABS: MAGNESIUM 1.5 mg/dL (1.7-2.2); PHOSPHOROUS 2.9 mg/dL (2.5-4.5)
[2016-10-25 08:19] LABS: HEMATOCRIT 29.9 % (36.0-48.0); MEAN CELL VOLUME 90.9 fl (80.0-105.0); MEAN CORPUSCULAR HGB CONC 30.8 g/dl (31.0-37.0); RED CELL DISTRIBUTION WIDTH 16.3 % (11.5-14.5); WHITE BLOOD COUNT 5.3 10^3/ul (4.5-11.0)
[2016-10-25 08:25] LABS: BLOOD UREA NITROGEN 4 mg/dL (7-21); CALCIUM 7.5 mg/dL (8.4-10.5); CARBON DIOXIDE 24 mmol/L (21-33); CHLORIDE 108 mmol/L (98-107); GFR AFRICAN-AMERICAN > 60; GLUCOSE,RANDOM 92 mg/dL (70-110); MAGNESIUM 1.3 mg/dL (1.7-2.2); POTASSIUM 3.1 mmol/L (3.6-5.0); SODIUM 139 mmol/L (132-148)
[2016-10-25] MEDS ORDERED: Iohexol 350 MG/100 ML VIAL ONE (08:57)
[2016-10-25] MEDS ORDERED: Magnesium Sulfate 2 GM in Sodium Chloride 0.9% 100 ML IVPB ONE (09:11)
[2016-10-25] MEDS: Multivitamin With Minerals Tab PO SCH (09:27)
--- NOTE | 2016-10-25 13:06 | CP.PCM.PN ---
Subjective - Date & Time of Evaluation Date of Evaluation: 10/25/16 Time of Evaluation: 08:30 - Subjective Subjective: Patient seen and examined at bedside. No acute events reported overnight. States she ate breakfast this morning without any complaints. Denies any new complaints today. Review of Systems - Review of Systems All systems: reviewed and no additional remarkable complaints except - Constitutional Constitutional: absent: Fever, Chills, Weakness - EENT Eyes: absent: Blurred Vision - Cardiovascular Cardiovascular: absent: Chest Pain, Dyspnea - Respiratory Respiratory: absent: Cough, Dyspnea - Gastrointestinal Gastrointestinal: absent: Abdominal Pain, Nausea, Vomiting - Genitourinary Genitourinary: absent: Dysuria, Flank Pain - Musculoskeletal Musculoskeletal: absent: Back Pain - Neurological Neurological: absent: Tremor - Psychiatric Psychiatric: absent: Anxiety Objective - Vital Signs/Intake and Output Vital Signs (last 24 hours): Temp Pulse Resp BP Pulse Ox 99.2 F 112 H 20 95/66 L 100 10/25/16 06:00 10/25/16 10:00 10/25/16 06:00 10/25/16 06:00 10/25/16 06:00 Intake and Output: 10/25/16 10/25/16 06:59 18:59 Intake Total 740 Balance 740 - Medications Medications: Current Medications Acetaminophen (Tylenol 325mg Tab) 650 mg PO Q4H PRN PRN Reason: Temperature Last Admin: 10/23/16 16:52 Dose: 650 mg Sodium Chloride (Sodium Chloride 0.9%) 1,000 mls @ 75 mls/hr IV .[id number] [facility] Last Admin: 10/24/16 20:35 Dose: 75 mls/hr Potassium Chloride (Potassium Chloride 20 Meq/100 Ml) 20 meq in 100 mls @ 50 mls/hr IVPB Q2H [facility] Stop: 10/25/16 13:14 Last Admin: 10/25/16 09:28 Dose: 50 mls/hr Lorazepam (Ativan) 1 mg IVP Q3 PRN; Protocol PRN Reason: Agitation Multivitamins/Minerals (Therapeutic-M Tab) 1 tab PO 0800 [facility] Last Admin: 10/25/16 09:27 Dose: 1 tab Ondansetron HCl (Zofran Inj) 4 mg IVP Q4H PRN PRN Reason: Nausea/Vomiting Pantoprazole Sodium (Protonix Inj) 40 mg IVP DAILY [facility] Last Admin: 10/25/16 09:27 Dose: 40 mg Thiamine HCl (Vitamin B1 Tab) 100 mg PO DAILY [facility] Last Admin: 10/25/16 09:33 Dose: 100 mg - Labs Labs: 10/25/16 08:11 10/25/16 08:11 PT 14.1 Seconds (9.9-11.8) H 10/24/16 06:40 INR 1.31 (0.93-1.08) H 10/24/16 06:40 APTT 28.6 Seconds (23.7-30.8) 10/21/16 08:25 - Constitutional Appears: Well, No Acute Distress - Head Exam Head Exam: NORMAL INSPECTION - Eye Exam Eye Exam: EOMI - ENT Exam ENT Exam: Normal Exam - Neck Exam Neck Exam: Full ROM - Respiratory Exam Respiratory Exam: Clear to Ausculation Bilateral. absent: Rhonchi, Wheezes - Cardiovascular Exam Cardiovascular Exam: REGULAR RHYTHM, +S1, +S2 - GI/Abdominal Exam GI & Abdominal Exam: Soft, Normal Bowel Sounds. absent: Tenderness, Organomegaly - Extremities Exam Extremities Exam: absent: Calf Tenderness - Neurological Exam Neurological Exam: Alert, Awake, Oriented x3 - Psychiatric Exam Psychiatric exam: Normal Mood Assessment and Plan - Assessment and Plan (Free Text) Plan: This is a 51 year old female with past medical history of cirrhosis and alcohol abuse who presented with with abdominal swelling and dysphagia. 1. Ascites / Cirrhosis - CT abd/pelvis showed cirrhosis and moderate ascites. Patient is s/p paracentesis earlier this week. GI is following the patient. 2. Dysphagia - Patient is s/p EGD which showed gastritis, erythema at the GE junction, abnormal oropharynx, polypoid friable lesion (1.5 cm) in the hypopharyngeal area. Biopsies were taken and pending. CT neck is ordered. ENT evaluation is requested. Continue with PPI. Continue with diet as tolerated. 3. Anemia - Continue to monitor and transfuse as needed. 4. Hypokalemia / hypomagnesemia - Will replete and repeat. 5. Alcohol abuse - Patient was counselled on alcohol abstinence. Continue with multivitamin, folic acid and thiamine. Continue with ativan prn. Continue with protonix for GI prophylaxis and SCDs for DVT prophylaxis.
--- NOTE | 2016-10-25 14:28 | PN ---
DATE: 10/25/2016 SUBJECTIVE: The patient is in bed, in no acute distress, nontoxic. PHYSICAL EXAMINATION: VITAL SIGNS: On exam, temperature is 98, blood pressure is 112/70 and respiratory rate of 16. HEENT: Unremarkable. NECK: Supple. LUNGS: Has decreased breath sounds. HEART: Normal S1 and S2. ABDOMEN: Soft. LABORATORY DATA: Reveals white count of 5.3, hemoglobin of 9, and platelets of 120. Chemistries are noted. Review of order reveals the patient to be off antibiotics. The patient has CAT scan of the neck, the results are pending. ASSESSMENT AND PLAN: This is a 51-year-old female with right malar area erythematous lesion, allergic reaction, fungal disease, and the patient has alcoholism, liver cirrhosis, ascites, depression, and cultures negative. Currently, off antibiotics, recommend p.o. Cipro 750 mg once weekly for spontaneous bacterial peritonitis and the patient for endoscopy. We will check CAT scan of the neck, results pending. Yunior Hdz MD
--- NOTE | 2016-10-25 15:54 | CT ---
PROCEDURE: CT scan of the neck dated 10/26/2015 HISTORY: Rule out nasopharyngeal carcinoma COMPARISON: No prior study available for comparison TECHNIQUE: Contiguous helical/ transaxial sections of the neck performed following intravenous injection of approximately 100 cc Omnipaque 350 contrast material. Coronal and sagittal reformats generated. Radiation dose: DLP 178.62 mGy-cm This CT exam was performed using one or more of the following dose reduction techniques: Automated exposure control, adjustment of the mA and/or kV according to patient size, and/or use of iterative reconstruction technique. FINDINGS: The current study reveals a small approximately 8.7 x 8.7 mm rounded low-attenuation focus in the region left palatine tonsil surrounded by a thin hyperdense rim. The possibility of invasive lesion such as squamous cell carcinoma not excluded. Direct visualization recommended. There is also of prominence of the soft palate though this could be positional. Asymmetry of the vallecula likely due to some head tilt and possibly some residual and or retained secretion. Some encroaching lingual tonsil may contribute. Free margin of the epiglottis unremarkable. There is also asymmetry of the pyriform sinuses and aryepiglottic folds however due to significant crossing streak and beam hardening artifact arising from dental amalgam evaluation is limited. Again direct visualization suggested. Vocal cords appear relatively symmetric. Cervical vasculature unremarkable. The common carotid arteries, carotid bifurcations and internal carotid artery is widely patent without evidence of significant atherosclerotic disease occlusion significant stenosis or dissection. Note is made of elliptical shaped area of enhancement in the region adjacent to the posterior superior aspect of the left cavernous sinus. Which is of uncertain etiology. Rule out anomalous drainage venous pattern. There is a typical dominant the appearance of the left vertebral artery with small caliber right vertebral artery. Vertebral arteries however are patent throughout so far as can be seen. Jugular veins are typically asymmetric right side more larger in caliber than the left. Evaluation of the thyroid is limited due to crossing streak and beam hardening artifact arising from dense clavicles and shoulder girdles. Submandibular and parotid glands unremarkable. . Multilevel degenerative spondylosis of the cervical spine most notably affecting the C4-C5 through the C6-C7 levels. Minor chronic anterior stature loss of the C5 segment with some minimal anterior subluxation C4 over C5 and kyphotic angulation deformity centered at C4-C5 levels. Lung apices are clear. No evidence of pneumothorax. . IMPRESSION: Impression: There is a small on hypodense focus within the region the left palatine tonsil that measures approximately 8.7 x 8.7 mm with a peripheral slightly hyperdense rim. Possibility of an invasive lesion such as squamous cell carcinoma not excluded. Clinical correlation recommended. Prominence of the soft palate -nonspecific though no discrete lesion is identified There is also mild asymmetry of the pyriform sinuses there also no discrete lesions identified in this location. Consider followup but direct visualization if squamous cell carcinoma suspected clinically.
[2016-10-25] MEDS: Sodium Chloride 0.9% 1,000 ML IV SCH (17:23)
[2016-10-26] MEDS ORDERED: HYDROmorphone 0.5 mg/0.5 ml ISec IVP STA (05:46)
[2016-10-26 07:03] LABS: HEMATOCRIT 30.5 % (36.0-48.0); MEAN CORPUSCULAR HEMOGLOBIN 27.8 pg (25.0-35.0); MEAN CORPUSCULAR HGB CONC 30.5 g/dl (31.0-37.0); MEAN PLATELET VOLUME 11.1 fl (7.0-11.0); RED CELL DISTRIBUTION WIDTH 16.6 % (11.5-14.5); WHITE BLOOD COUNT 5.1 10^3/ul (4.5-11.0)
[2016-10-26 07:33] LABS: BLOOD UREA NITROGEN 5 mg/dL (7-21); CALCIUM 7.5 mg/dL (8.4-10.5); CARBON DIOXIDE 23 mmol/L (21-33); CHLORIDE 106 mmol/L (98-107); GFR AFRICAN-AMERICAN > 60; GLUCOSE,RANDOM 94 mg/dL (70-110); MAGNESIUM 1.8 mg/dL (1.7-2.2); SODIUM 137 mmol/L (132-148)
[2016-10-26] MEDS: Multivitamin With Minerals Tab PO SCH (09:36)
--- NOTE | 2016-10-26 13:56 | PN ---
DATE: 10/26/2016 SUBJECTIVE: The patient is in bed, seen early this morning. PHYSICAL EXAMINATION: VITAL SIGNS: Temperature is 99, blood pressure is 100/60, respiratory rate of 18, heart rate of 90. HEENT: Reveals the patient's lesions improved, still somewhat permanent. NECK: Supple. LUNGS: Decreased breath sounds. HEART: Normal S1 and S2. ABDOMEN: Soft, nontender. LABORATORY DATA: Reveals a white count of 5, hemoglobin of 9. Chemistries are noted and microbiology is noted. Blood cultures negative. Urine cultures negative. Orders reveals the patient to be off of antibiotics. The patient had a CAT scan of the neck, soft tissue read by Dr. Navid Garcia. Small hypodense foci and region of the left palatine tonsil measures 8 x 8 with a peripherally slightly hypodense rim, invasive lesions such as squamous cell, worsen one cannot be occluded. Clinical correlation is what Dr. Garcia is recommending and Dr. Evans's note is reviewed. ASSESSMENT AND PLAN: A 51-year-old female with right malar erythematous lesion, etiology not clear; alcoholism; liver cirrhosis; ascites; depression. Currently, off of antibiotics. May use Cipro 750 once weekly for spontaneous bacterial peritonitis prophylaxis. ENT consultation reviewed. CAT scan findings. We will follow with you. Yunior Hzd MD
--- NOTE | 2016-10-26 15:05 | CP.PCM.PN ---
<LocoCandis albert - Last Filed: 10/26/16 15:02> Subjective - Date & Time of Evaluation Date of Evaluation: 10/26/16 Time of Evaluation: 15:02 - Subjective Subjective: Patient has been seen and examined at bedside. She denies any fevers, chills, chest pain, SOB, N/V/D. constipation. She does complain of abdominal pain with distension. Objective - Vital Signs/Intake and Output Vital Signs (last 24 hours): Temp Pulse Resp BP Pulse Ox 98.7 F 114 H 20 98/69 L 97 10/26/16 06:00 10/26/16 10:00 10/26/16 06:00 10/26/16 06:00 10/26/16 06:00 Intake and Output: 10/26/16 10/26/16 06:59 18:59 Intake Total 2190 Balance 2190 - Medications Medications: Current Medications Acetaminophen (Tylenol 325mg Tab) 650 mg PO Q4H PRN PRN Reason: Temperature Last Admin: 10/23/16 16:52 Dose: 650 mg Folic Acid (Folic Acid) 1 mg PO DAILY [facility] Last Admin: 10/26/16 09:36 Dose: 1 mg Sodium Chloride (Sodium Chloride 0.9%) 1,000 mls @ 75 mls/hr IV .[id number] [facility] Last Admin: 10/25/16 17:23 Dose: 75 mls/hr Lorazepam (Ativan) 1 mg IVP Q3 PRN; Protocol PRN Reason: Agitation Multivitamins/Minerals (Therapeutic-M Tab) 1 tab PO 0800 [facility] Last Admin: 10/26/16 09:36 Dose: 1 tab Ondansetron HCl (Zofran Inj) 4 mg IVP Q4H PRN PRN Reason: Nausea/Vomiting Pantoprazole Sodium (Protonix Inj) 40 mg IVP DAILY [facility] Last Admin: 10/26/16 09:36 Dose: 40 mg Thiamine HCl (Vitamin B1 Tab) 100 mg PO DAILY [facility] Last Admin: 10/26/16 09:36 Dose: 100 mg - Labs Labs: 10/26/16 06:00 10/26/16 06:00 PT 14.1 Seconds (9.9-11.8) H 10/24/16 06:40 INR 1.31 (0.93-1.08) H 10/24/16 06:40 APTT 28.6 Seconds (23.7-30.8) 10/21/16 08:25 - Constitutional Appears: Non-toxic, Chronically Ill - Head Exam Head Exam: NORMOCEPHALIC Additional comments: Right erythematous lesion on malar region - Eye Exam Eye Exam: EOMI, Normal appearance - ENT Exam ENT Exam: Mucous Membranes Moist - Respiratory Exam Respiratory Exam: Clear to Ausculation Bilateral. absent: Rales, Rhonchi, Wheezes - Cardiovascular Exam Cardiovascular Exam: RRR, +S1, +S2 - GI/Abdominal Exam GI & Abdominal Exam: Soft, Tenderness Additional comments: slightly distended - Extremities Exam Extremities Exam: absent: Pedal Edema - Neurological Exam Neurological Exam: Alert, Awake, Oriented x3 - Psychiatric Exam Psychiatric exam: Normal Affect, Normal Mood Assessment and Plan - Assessment and Plan (Free Text) Assessment: This is a 51 year old female with past medical history of cirrhosis and alcohol abuse who presented with with abdominal swelling and dysphagia. Plan: 1. Ascites / Cirrhosis - CT abd/pelvis showed cirrhosis and moderate ascites. Patient is s/p paracentesis earlier this week. GI is following the patient. Per ID will start Cipro 750 once weekly for bacterial peritoneal proph. 2. Dysphagia - Patient is s/p EGD which showed gastritis, erythema at the GE junction, abnormal oropharynx, polypoid friable lesion (1.5 cm) in the hypopharyngeal area. Biopsies were taken and pending. CT of neck showed invasive lesion; suspicious of squamous cell carcinoma. ENT evaluation is requested. Continue with PPI. Continue with diet as tolerated. 3. Anemia - Continue to monitor and transfuse as needed. 4. Hypokalemia / hypomagnesemia - Will replete and repeat. 5. Alcohol abuse - Patient was counselled on alcohol abstinence. Continue with multivitamin, folic acid and thiamine. Continue with ativan prn. 6. Right erythematous rash at Right malar region (Etiology uknown) -Patient is asymptomatic. Will f/U with ID for recommendations. Continue with protonix for GI prophylaxis and SCDs for DVT prophylaxis. Patient seen, examined, and reviewed with Attending. Candis Lindsay PGY-1 <Kofi Evans - Last Filed: 10/26/16 17:10> Objective - Vital Signs/Intake and Output Vital Signs (last 24 hours): Temp Pulse Resp BP Pulse Ox 98.7 F 114 H 20 98/69 L 97 10/26/16 06:00 10/26/16 10:00 10/26/16 06:00 10/26/16 06:00 10/26/16 06:00 Intake and Output: 10/26/16 10/26/16 06:59 18:59 Intake Total 2190 Balance 2190 - Medications Medications: Current Medications Acetaminophen (Tylenol 325mg Tab) 650 mg PO Q4H PRN PRN Reason: Temperature Last Admin: 10/23/16 16:52 Dose: 650 mg Folic Acid (Folic Acid) 1 mg PO DAILY [facility] Last Admin: 10/26/16 09:36 Dose: 1 mg Sodium Chloride (Sodium Chloride 0.9%) 1,000 mls @ 75 mls/hr IV .[id number] [facility] Last Admin: 10/25/16 17:23 Dose: 75 mls/hr Lorazepam (Ativan) 1 mg IVP Q3 PRN; Protocol PRN Reason: Agitation Multivitamins/Minerals (Therapeutic-M Tab) 1 tab PO 0800 [facility] Last Admin: 10/26/16 09:36 Dose: 1 tab Ondansetron HCl (Zofran Inj) 4 mg IVP Q4H PRN PRN Reason: Nausea/Vomiting Pantoprazole Sodium (Protonix Inj) 40 mg IVP DAILY [facility] Last Admin: 10/26/16 09:36 Dose: 40 mg Thiamine HCl (Vitamin B1 Tab) 100 mg PO DAILY [facility] Last Admin: 10/26/16 09:36 Dose: 100 mg - Labs Labs: 10/26/16 06:00 10/26/16 06:00 PT 14.1 Seconds (9.9-11.8) H 10/24/16 06:40 INR 1.31 (0.93-1.08) H 10/24/16 06:40 APTT 28.6 Seconds (23.7-30.8) 10/21/16 08:25 Attending/Attestation - Attestation I have personally seen and examined this patient.: Yes I have fully participated in the care of the patient.: Yes I have reviewed all pertinent clinical information, including history, physical exam and plan: Yes Notes (Text): 10/26/16 17:05 51 year old female with past medical history of cirrhosis and alcohol abuse who presented with abdominal swelling secondary to ascites. She is s/p paracentesis last week. May need weekly cipro for SBP prophylaxis per ID. GI is also following for dysphagia. She is s/p EGD which showed gastritis and polypoid hypopharyngeal lesion. Biopsy is pending. CT neck was done also showing invasive lesion as above. ENT evaluation is pending. Continue with PPI and diet as tolerated. Patient has history of alcohol abuse and counselled on abstinence. Kofi Evans MD Hospitalist.
[2016-10-26] MEDS: Sodium Chloride 0.9% 1,000 ML IV SCH (19:28)
--- NOTE | 2016-10-27 01:45 | PN ---
DATE: 10/26/2016 SUBJECTIVE: This patient was seen and evaluated earlier. The patient's family was at bedside, also seen by the ENT. PHYSICAL EXAMINATION: VITAL SIGNS: Temperature 99.1, blood pressure 105/73, pulse 113, respirations 20 and O2 saturation 99. HEENT: Atraumatic and anicteric. NECK: Supple. HEART: S1 and S2 heard. LUNGS: Bilateral air entry present. ABDOMEN: Softly, distended, ascites present. EXTREMITIES: No edema. No cyanosis. LABORATORY DATA: Hemoglobin 9.3, hematocrit 30.5, WBC 5.1 and platelets 119. IMPRESSION: This 51-year-old patient with decompensated cirrhosis secondary to ethanol, admitted with severe anemia and ascites. The patient had large volume paracentesis done. Upper gastrointestinal endoscopy revealed hypopharyngeal lesion, ulcerated lesion, rule out malignancy, biopsies were not taken as the lesion was hypopharyngeal, endoscopy biopsy is not advised. EGD of biopsy is not recommended and the patient is being evaluated by the ENT. The patient's CT scan reviewed. The patient's duodenum also has nodularity biopsy report still pending. EGD did not reveal any esophageal varices. The patient would benefit from elective colonoscopic evaluation. Closely follow up of the hemoglobin and hematocrit. Thank you very much for allowing us to participate in the care of this patient. Olman Herrera MD
--- NOTE | 2016-10-27 01:46 | CON ---
EAR, NOSE, AND THROAT CONSULT DATE: HISTORY OF PRESENT ILLNESS: The patient is a 51-year-old female with past medical history of alcohol abuse and cirrhosis who is reporting 6 weeks history of abdominal pain. She came in to the ED for worsening ascites and for abdominal pain. In regards to abdominal pain, the patient was scoped by a GI physician showing a mass within the larynx, we were then consulted for further evaluation of the mass. The patient denies any symptoms of dysphagia, change in voice, bleeding from mouth, any sputum production and otherwise only complaint is abdominal pain. She does drink 2 to 6 packs per day and has been drinking for over 25 years. She denies any smoking history. PAST MEDICAL HISTORY: Alcohol abuse, cirrhosis, depression, and anxiety. PAST SURGICAL HISTORY: She had a mandible fracture about 20 years ago repaired using plates. ALLERGIES: NO KNOWN DRUG ALLERGIES. SOCIAL HISTORY: Everyday drinker, 2 to 6 packs per day. No tobacco use. Denies any illicit drug use. FAMILY HISTORY: No pertinent family history. REVIEW OF SYSTEMS: Twelve-point review of systems negative except as stated in the HPI. MEDICATIONS: As per med history. PHYSICAL EXAMINATION: VITAL SIGNS: Temperature 98.7, pulse 93, blood pressure 98/69, respirations 20, and O2 saturation 97% on room air. HEENT: Head, normocephalic, atraumatic. Eyes, extraocular muscles are intact. Normal appearance. No visual changes. Nose, nares patent bilaterally. No bleeding. Ears, auricles are symmetric. No masses seen. Mouth, mucous membranes are moist. Uvula is midline. There is fullness to the left base of tongue on palpation when compared to the right side. NECK: Soft, supple. No adenopathy palpated. Flexible laryngoscopy. After the patient was verbally consented, Afrin was sprayed into both nares and scope was passed through left naris. Turbinates were visualized. The patient does have a large septal perforation. No bleeding noted in the nasopharynx. There is some papillomatous change to the epiglottis. There is a coat on the lingual surface on the left hand side. Also, there is fullness to the left base of tongue and left lingual tonsil just facing the vallecula on that side. No discrete masses were seen. True cords were normal in appearance and AE folds are normal in appearance. No masses seen in the pyriform sinuses bilaterally. Postcricoid region had some mild edema. No discrete masses. At this point, the scope was withdrawn under direct visualization. The patient tolerated the procedure. LABORATORY DATA: WBC 5.1, RBC 3.35, hemoglobin 9.3, hematocrit 30.5, and platelets 119. Radiology, CT scan of the neck, soft tissue with contrast. Findings, the current study reveals a small approximately 8.7 x 8.7 mm rounded low attenuation focus in the region of left palatine tonsils surrounded by a thin hyperdense rim, the possibility of increased lesions such as squamous cell carcinoma not excluded, direct visualization recommended. There is also prominence of the soft palate, so this could be positional, asymmetry of the vallecula likely due to some head fill and possibly some residual and/or retained secretion. ASSESSMENT: This is a 51-year-old female with significant history of alcohol abuse and lesions visualized in the epiglottis with CT findings of the left palatine tonsil fullness. The patient is high risk for oropharyngeal cancer due to the history of alcohol abuse. She is advised to undergo direct laryngoscopy with biopsy. She is more than welcome to follow up in office for scheduling of surgery. Alternatively, she was provided the number for [facility]. This was discussed with her and the family in depth, family and the patient understand necessity of followup. Thank you for allowing us to participate in this patient's care. Michael Newman DO
[2016-10-27 05:56] LABS: HEMATOCRIT 27.6 % (36.0-48.0); MEAN CELL VOLUME 91.1 fl (80.0-105.0); MEAN CORPUSCULAR HEMOGLOBIN 27.1 pg (25.0-35.0); MEAN CORPUSCULAR HGB CONC 29.7 g/dl (31.0-37.0); RED CELL DISTRIBUTION WIDTH 16.6 % (11.5-14.5)
[2016-10-27 06:13] LABS: BLOOD UREA NITROGEN 6 mg/dL (7-21); CALCIUM 7.5 mg/dL (8.4-10.5); CARBON DIOXIDE 26 mmol/L (21-33); CHLORIDE 109 mmol/L (98-107); GFR AFRICAN-AMERICAN > 60; GLUCOSE,RANDOM 104 mg/dL (70-110); MAGNESIUM 1.6 mg/dL (1.7-2.2); SODIUM 141 mmol/L (132-148)
[2016-10-27] MEDS: Multivitamin With Minerals Tab PO SCH (09:22)
[2016-10-27] MEDS ORDERED: Magnesium Sulfate 1 gm in D5W 1 GM/100 ML BAG IVPB ONE (10:01)
--- NOTE | 2016-10-27 11:20 | CP.PCM.PN ---
<Gee Dunham - Last Filed: 10/27/16 11:21> Subjective - Date & Time of Evaluation Date of Evaluation: 10/27/16 Time of Evaluation: 11:10 - Subjective Subjective: GI: Dr. Herrera Pt seen and examined. Pt continues to have diffuse abd pain. Otherwise no complaints. Objective - Vital Signs/Intake and Output Vital Signs (last 24 hours): Temp Pulse Resp BP Pulse Ox 98.8 F 99 H 19 104/57 L 97 10/27/16 08:12 10/27/16 08:12 10/27/16 08:12 10/27/16 10:55 10/27/16 08:12 Intake and Output: 10/27/16 10/27/16 06:59 18:59 Intake Total 1080 Balance 1080 - Medications Medications: Current Medications Acetaminophen (Tylenol 325mg Tab) 650 mg PO Q4H PRN PRN Reason: Temperature Last Admin: 10/23/16 16:52 Dose: 650 mg Folic Acid (Folic Acid) 1 mg PO DAILY [facility] Last Admin: 10/27/16 09:21 Dose: 1 mg Furosemide (Lasix) 20 mg PO DAILY [facility] Last Admin: 10/27/16 10:55 Dose: 20 mg Sodium Chloride (Sodium Chloride 0.9%) 1,000 mls @ 75 mls/hr IV .[id number] [facility] Last Admin: 10/26/16 19:28 Dose: 75 mls/hr Lorazepam (Ativan) 1 mg IVP Q3 PRN; Protocol PRN Reason: Agitation Magnesium Oxide (Mag-Ox) 400 mg PO TID [facility] Multivitamins/Minerals (Therapeutic-M Tab) 1 tab PO 0800 [facility] Last Admin: 10/27/16 09:22 Dose: Not Given Ondansetron HCl (Zofran Inj) 4 mg IVP Q4H PRN PRN Reason: Nausea/Vomiting Pantoprazole Sodium (Protonix Inj) 40 mg IVP DAILY [facility] Last Admin: 10/27/16 09:22 Dose: 40 mg Spironolactone (Aldactone) 50 mg PO DAILY [facility] Last Admin: 10/27/16 10:55 Dose: 50 mg Thiamine HCl (Vitamin B1 Tab) 100 mg PO DAILY [facility] Last Admin: 10/27/16 09:21 Dose: 100 mg - Labs Labs: 10/27/16 05:20 10/27/16 05:20 PT 14.1 Seconds (9.9-11.8) H 10/24/16 06:40 INR 1.31 (0.93-1.08) H 10/24/16 06:40 APTT 28.6 Seconds (23.7-30.8) 10/21/16 08:25 - Constitutional Appears: Non-toxic, No Acute Distress - Head Exam Head Exam: ATRAUMATIC, NORMOCEPHALIC - Eye Exam Eye Exam: EOMI. absent: Scleral icterus - ENT Exam ENT Exam: Mucous Membranes Moist - Neck Exam Neck Exam: Full ROM - Respiratory Exam Respiratory Exam: NORMAL BREATHING PATTERN. absent: Accessory Muscle Use, Respiratory Distress - GI/Abdominal Exam GI & Abdominal Exam: Distended, Soft. absent: Firm, Guarding, Rigid, Tenderness , Rebound - Extremities Exam Extremities Exam: absent: Calf Tenderness, Pedal Edema - Neurological Exam Neurological Exam: Alert, Awake, Oriented x3 - Psychiatric Exam Psychiatric exam: Normal Affect, Normal Mood - Skin Skin Exam: Dry, Normal Color, Warm Assessment and Plan - Assessment and Plan (Free Text) Assessment: 51F w. ascites 2/2 decompensated liver cirrhosis from ETOH abuse s/p large volume paracentsesis and upper EGD -will start pt on Aldactone 50mg PO daily as well as lasix 20mg PO daily -pt will need elective colonoscopy -EGD: hypopharyngeal lesion noted, pt to follow up w. ENT out pt for bx -case d/w attending Charla PGY3 <Olman Herrera V - Last Filed: 10/27/16 20:05> Objective - Vital Signs/Intake and Output Vital Signs (last 24 hours): Temp Pulse Resp BP Pulse Ox 99.6 F 107 H 19 100/71 97 10/27/16 16:00 10/27/16 16:00 10/27/16 16:00 10/27/16 16:00 10/27/16 16:00 Intake and Output: 10/27/16 10/28/16 18:59 06:59 Intake Total 0 Balance 0 - Medications Medications: Current Medications Acetaminophen (Tylenol 325mg Tab) 650 mg PO Q4H PRN PRN Reason: Temperature Last Admin: 10/23/16 16:52 Dose: 650 mg Folic Acid (Folic Acid) 1 mg PO DAILY [facility] Last Admin: 10/27/16 09:21 Dose: 1 mg Furosemide (Lasix) 20 mg PO DAILY [facility] Last Admin: 10/27/16 10:55 Dose: 20 mg Lorazepam (Ativan) 1 mg IVP Q3 PRN; Protocol PRN Reason: Agitation Magnesium Oxide (Mag-Ox) 400 mg PO TID [facility] Last Admin: 10/27/16 17:53 Dose: 400 mg Multivitamins/Minerals (Therapeutic-M Tab) 1 tab PO 0800 [facility] Last Admin: 10/27/16 09:22 Dose: Not Given Ondansetron HCl (Zofran Inj) 4 mg IVP Q4H PRN PRN Reason: Nausea/Vomiting Pantoprazole Sodium (Protonix Inj) 40 mg IVP DAILY [facility] Last Admin: 10/27/16 09:22 Dose: 40 mg Spironolactone (Aldactone) 50 mg PO DAILY [facility] Last Admin: 10/27/16 10:55 Dose: 50 mg Thiamine HCl (Vitamin B1 Tab) 100 mg PO DAILY [facility] Last Admin: 10/27/16 09:21 Dose: 100 mg - Labs Labs: 10/27/16 05:20 10/27/16 05:20 PT 14.1 Seconds (9.9-11.8) H 10/24/16 06:40 INR 1.31 (0.93-1.08) H 10/24/16 06:40 APTT 28.6 Seconds (23.7-30.8) 10/21/16 08:25 Attending/Attestation - Attestation I have personally seen and examined this patient.: Yes I have fully participated in the care of the patient.: Yes I have reviewed all pertinent clinical information, including history, physical exam and plan: Yes Notes (Text): this patient was seen and evaluated earlier along with the resident. On examination patient has significant ascites again. Would start the patient on Aldactone 50 mg dailyand Lasix 20 mg daily. Need close follow-up of electrolytes Patient was seen by ENT consult note reviewed. Biopsies were not done During endoscopy the hypopharyngeal lesion noticed was not biopsied CT scan of the neck was reviewed Patient has a decompensated cirrhosis admitted with anemia, ascites and dysphagia. The patient was found to have a pharyngeal lesion at the time of EGD Would need a biopsy and ENT follow-up Patient would need elective colonoscopy evaluation nodular duodenal mucosa biopsied . Pathology results pending
[2016-10-27] MEDS: Magnesium Oxide 400 mg Tab UD PO SCH ×2 (14:16→17:53)
--- NOTE | 2016-10-27 16:07 | CP.PCM.PN ---
<YessiSherifn - Last Filed: 10/28/16 19:17> Subjective - Date & Time of Evaluation Date of Evaluation: 10/27/16 Time of Evaluation: 10:05 - Subjective Subjective: Patient was seen and examined at bedside this morning. The patient reports her stomach is getting larger from yesterday as well as right sided flank pain today. She denies any chest pain, shortness of breath, nausea, vomiting, lightheaded, dizziness, changes in vision, or any other complaints. Objective - Vital Signs/Intake and Output Vital Signs (last 24 hours): Temp Pulse Resp BP Pulse Ox 98.8 F 98 H 19 104/57 L 97 10/27/16 08:12 10/27/16 10:00 10/27/16 08:12 10/27/16 10:55 10/27/16 08:12 Intake and Output: 10/27/16 10/27/16 06:59 18:59 Intake Total 1080 0 Balance 1080 0 - Medications Medications: Current Medications Acetaminophen (Tylenol 325mg Tab) 650 mg PO Q4H PRN PRN Reason: Temperature Last Admin: 10/23/16 16:52 Dose: 650 mg Folic Acid (Folic Acid) 1 mg PO DAILY [facility] Last Admin: 10/27/16 09:21 Dose: 1 mg Furosemide (Lasix) 20 mg PO DAILY [facility] Last Admin: 10/27/16 10:55 Dose: 20 mg Lorazepam (Ativan) 1 mg IVP Q3 PRN; Protocol PRN Reason: Agitation Magnesium Oxide (Mag-Ox) 400 mg PO TID [facility] Last Admin: 10/27/16 14:16 Dose: 400 mg Multivitamins/Minerals (Therapeutic-M Tab) 1 tab PO 0800 [facility] Last Admin: 10/27/16 09:22 Dose: Not Given Ondansetron HCl (Zofran Inj) 4 mg IVP Q4H PRN PRN Reason: Nausea/Vomiting Pantoprazole Sodium (Protonix Inj) 40 mg IVP DAILY [facility] Last Admin: 10/27/16 09:22 Dose: 40 mg Spironolactone (Aldactone) 50 mg PO DAILY [facility] Last Admin: 10/27/16 10:55 Dose: 50 mg Thiamine HCl (Vitamin B1 Tab) 100 mg PO DAILY [facility] Last Admin: 10/27/16 09:21 Dose: 100 mg - Labs Labs: 10/27/16 05:20 10/27/16 05:20 PT 14.1 Seconds (9.9-11.8) H 10/24/16 06:40 INR 1.31 (0.93-1.08) H 10/24/16 06:40 APTT 28.6 Seconds (23.7-30.8) 10/21/16 08:25 - Head Exam Head Exam: ATRAUMATIC, NORMAL INSPECTION, NORMOCEPHALIC - Eye Exam Eye Exam: EOMI, Normal appearance, PERRL Pupil Exam: NORMAL ACCOMODATION, PERRL. absent: Irregular - ENT Exam ENT Exam: Mucous Membranes Moist - Neck Exam Neck Exam: Normal Inspection. absent: Thyromegaly - Respiratory Exam Respiratory Exam: Clear to Ausculation Bilateral, NORMAL BREATHING PATTERN. absent: Wheezes - Cardiovascular Exam Cardiovascular Exam: REGULAR RHYTHM, RRR, +S1, +S2. absent: JVD - GI/Abdominal Exam GI & Abdominal Exam: Distended, Firm, Normal Bowel Sounds - Back Exam Back Exam: NORMAL INSPECTION. absent: paraspinal tenderness - Neurological Exam Neurological Exam: Alert, Awake, CN II-XII Intact, Oriented x3 - Psychiatric Exam Psychiatric exam: Normal Affect, Normal Mood - Skin Skin Exam: Dry, Intact Assessment and Plan - Assessment and Plan (Free Text) Assessment: This is a 51 yr. old female with past medical history of liver cirrhosis, etoh abuse who presents with dysphagia and abdominal swelling for 6 weeks. Plan: 1. Ascites 2/2 cirrhosis -Patient admitted and underwent a Therapeutic and Diagnostic Paracentesis. -Ascitic fluid cx will be sent. -MELD Score of 9( has a 1.9% risk of mortality) -SAAG 1.4 g/dL. Portal hypertension likely the cause of ascites. - GI consult ordered appreciated -ID consult rec's appreciated. -Abdomen/pelvis CT:showed Cirrhosis, Moderate ascites, Possible enteritis/ colitis, and Mild cystitis -Patient may be tapped again tomorrow pending IR consult. 2. Dysphagia -Currently on regular diet. Patient will be monitored closely. 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 Will order CT scan of neck with IV contrast. 3. Anemia - Hgb:10.1. Patient was Type and Cross-matched. Patient given 1 Unit of PRBC's. - Monitor H/H - Transfuse Hgb if under 7 - Iron studies panel if blood count continues to drop. 4. Abnormal electrolytes - Calcium gluconate & potassium chloride given to replete hypocalcemia & hypokalemia -Continue to monitor with serial CMP's. Will replete as needed. 5. Alcohol abuse/Withdrawal - urine alcohol & drug screen - counseled on EtOH cessation -Monitor for withdrawal symptoms. -Continue CIWA protocol, Seizure protocol, Fall Protocols ordered. 6. Shingles vs. bacterial infection -currently not complaining of pain. Continue Bacitracin. Will switch to Oral antibiotics once discharged. -Will monitor closely. GI & DVT PPX - Continue Protonix - Continue SCDs <Aden Rivas MD - Last Filed: 10/30/16 14:32> Objective - Vital Signs/Intake and Output Vital Signs (last 24 hours): Temp Pulse Resp BP Pulse Ox 99.8 F H 94 H 20 100/60 99 10/30/16 06:00 10/30/16 06:00 10/30/16 06:00 10/30/16 06:00 10/30/16 06:00 Intake and Output: 10/30/16 10/30/16 06:59 18:59 Intake Total 880 Balance 880 - Medications Medications: Current Medications Acetaminophen (Tylenol 325mg Tab) 650 mg PO Q4H PRN PRN Reason: Temperature Last Admin: 10/29/16 12:20 Dose: 650 mg Betamethasone/Clotrimazole (Lotrisone) 0 ml TOP BID [facility] Folic Acid (Folic Acid) 1 mg PO DAILY [facility] Last Admin: 10/30/16 09:56 Dose: 1 mg Ceftriaxone Sodium (Rocephin 2 Gm Ivpb) 2 gm in 100 mls @ 100 mls/hr IVPB DAILY [facility] PRN Reason: Protocol Sodium Chloride (Sodium Chloride 0.9%) 900 mls @ 100 mls/hr IV .Q9H [facility] Stop: 10/31/16 00:14 Lorazepam (Ativan) 1 mg IVP Q3 PRN; Protocol PRN Reason: Agitation Magnesium Oxide (Mag-Ox) 400 mg PO TID [facility] Last Admin: 10/30/16 13:39 Dose: 400 mg Multivitamins/Minerals (Therapeutic-M Tab) 1 tab PO 0800 [facility] Last Admin: 10/30/16 09:56 Dose: 1 tab Ondansetron HCl (Zofran Inj) 4 mg IVP Q4H PRN PRN Reason: Nausea/Vomiting Pantoprazole Sodium (Protonix Inj) 40 mg IVP DAILY [facility] Last Admin: 10/30/16 09:56 Dose: 40 mg Thiamine HCl (Vitamin B1 Tab) 100 mg PO DAILY [facility] Last Admin: 10/30/16 09:56 Dose: 100 mg - Labs Labs: 10/30/16 06:23 10/30/16 06:23 PT 14.1 Seconds (9.9-11.8) H 10/24/16 06:40 INR 1.31 (0.93-1.08) H 10/24/16 06:40 APTT 28.6 Seconds (23.7-30.8) 10/21/16 08:25 Attending/Attestation - Attestation I have personally seen and examined this patient.: Yes I have fully participated in the care of the patient.: Yes I have reviewed all pertinent clinical information, including history, physical exam and plan: Yes Notes (Text): 10/30/16 14:29 Patient was seen and examined with medical or surgical instrument maker. Agreed with resident assessment and plan. a 51 yo Female with significant PMH for alcohol abuse and cirrhosis, who reports 6 week history of dysphagia and abdominal swelling that has become progressively worse, was found to have ascites. Status post ascites; 4.3 L removed. 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 Fluid studies were negative for SBP.Cultures arenegative, does has elevated lipase in ascitic fluid , could be due to Pancreatitis.We will discontinue IV fluid and will start patient on Aldactone and lasix. 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 Management plan was discussed in detail with patient Education was provided.
[2016-10-28 05:45] LABS: BASO # 0.03 K/mm3 (0.0-2.0); BASO % 0.7 % (0.0-3.0); EOS # 0.1 (0.0-0.7); EOS % 1.8 % (1.5-5.0); GRAN # 3.43 (1.4-6.5); GRAN % 74.9 % (50.0-68.0); HEMATOCRIT 27.5 % (36.0-48.0); LYMPH # 0.4 (1.2-3.4); LYMPH % 7.7 % (22.0-35.0); MEAN CELL VOLUME 90.2 fl (80.0-105.0); MEAN CORPUSCULAR HEMOGLOBIN 27.2 pg (25.0-35.0); MEAN CORPUSCULAR HGB CONC 30.2 g/dl (31.0-37.0); MEAN PLATELET VOLUME 11.3 fl (7.0-11.0); MONO # 0.7 (0.1-0.6); MONO % 14.9 % (1.0-6.0); RED CELL DISTRIBUTION WIDTH 16.5 % (11.5-14.5); WHITE BLOOD COUNT 4.6 10^3/ul (4.5-11.0)
[2016-10-28 07:11] LABS: ALB/GLOB RATIO 0.7 (1.1-1.8); ALKALINE PHOSPHATASE 63 U/L (38-126); ALT/SGPT 33 U/L (7-56); AST/SGOT 38 U/L (14-36); BILIRUBIN,TOTAL 0.4 mg/dL (0.2-1.3); BLOOD UREA NITROGEN 7 mg/dL (7-21); CALCIUM 7.7 mg/dL (8.4-10.5); CARBON DIOXIDE 27 mmol/L (21-33); CHLORIDE 105 mmol/L (95-110); GFR AFRICAN-AMERICAN > 60; GLUCOSE,RANDOM 99 mg/dL (70-110); POTASSIUM 4.2 mmol/L (3.6-5.0); SODIUM 138 mmol/L (132-148)
[2016-10-28] MEDS: Magnesium Oxide 400 mg Tab UD PO SCH ×3 (10:39→18:46)
[2016-10-28] MEDS: Multivitamin With Minerals Tab PO SCH (10:50)
--- NOTE | 2016-10-28 18:28 | CP.PCM.PN ---
<YessiSherifn - Last Filed: 10/28/16 19:17> Subjective - Date & Time of Evaluation Date of Evaluation: 10/28/16 Time of Evaluation: 10:25 - Subjective Subjective: Patient was seen and examined at bedside. The patient continues to report feeling swollen in the abdomen s/p paracentesis last week. The patient also is reporting some pain the right flank of the abdomen. The patient denies any chest pain, nausea, vomiting, lightheaded, dizziness, changes in vision, dysuria , syncopal episodes or any other complaints. Objective - Vital Signs/Intake and Output Vital Signs (last 24 hours): Temp Pulse Resp BP Pulse Ox 98.8 F 100 H 19 94/61 L 90 L 10/28/16 16:00 10/28/16 16:00 10/28/16 16:00 10/28/16 16:00 10/28/16 16:00 Intake and Output: 10/28/16 10/28/16 06:59 18:59 Intake Total 240 300 Balance 240 300 - Medications Medications: Current Medications Acetaminophen (Tylenol 325mg Tab) 650 mg PO Q4H PRN PRN Reason: Temperature Last Admin: 10/23/16 16:52 Dose: 650 mg Cephalexin Monohydrate (Keflex) 250 mg PO Q6 [facility] PRN Reason: Protocol Last Admin: 10/28/16 14:08 Dose: 250 mg Folic Acid (Folic Acid) 1 mg PO DAILY [facility] Last Admin: 10/28/16 10:39 Dose: 1 mg Furosemide (Lasix) 20 mg PO DAILY [facility] Last Admin: 10/28/16 10:43 Dose: Not Given Lorazepam (Ativan) 1 mg IVP Q3 PRN; Protocol PRN Reason: Agitation Magnesium Oxide (Mag-Ox) 400 mg PO TID [facility] Last Admin: 10/28/16 14:09 Dose: 400 mg Multivitamins/Minerals (Therapeutic-M Tab) 1 tab PO 0800 [facility] Last Admin: 10/28/16 10:50 Dose: 1 tab Ondansetron HCl (Zofran Inj) 4 mg IVP Q4H PRN PRN Reason: Nausea/Vomiting Pantoprazole Sodium (Protonix Inj) 40 mg IVP DAILY [facility] Last Admin: 10/28/16 10:39 Dose: 40 mg Spironolactone (Aldactone) 50 mg PO DAILY [facility] Last Admin: 10/28/16 11:03 Dose: Not Given Thiamine HCl (Vitamin B1 Tab) 100 mg PO DAILY [facility] Last Admin: 10/28/16 10:49 Dose: 100 mg - Labs Labs: 10/28/16 05:15 10/28/16 05:15 PT 14.1 Seconds (9.9-11.8) H 10/24/16 06:40 INR 1.31 (0.93-1.08) H 10/24/16 06:40 APTT 28.6 Seconds (23.7-30.8) 10/21/16 08:25 - Head Exam Head Exam: ATRAUMATIC, NORMAL INSPECTION, NORMOCEPHALIC - Eye Exam Eye Exam: EOMI, Normal appearance, PERRL. absent: Periorbital tenderness Pupil Exam: NORMAL ACCOMODATION, PERRL. absent: Irregular - ENT Exam ENT Exam: Mucous Membranes Moist - Neck Exam Neck Exam: Normal Inspection. absent: Thyromegaly - Respiratory Exam Respiratory Exam: Clear to Ausculation Bilateral, NORMAL BREATHING PATTERN. absent: Respiratory Distress - Cardiovascular Exam Cardiovascular Exam: REGULAR RHYTHM, RRR, +S1, +S2. absent: Rubs - GI/Abdominal Exam GI & Abdominal Exam: Firm, Guarding, Normal Bowel Sounds. absent: Soft Additional comments: Diffuse swelling throughout the abdomen. - Back Exam Back Exam: NORMAL INSPECTION. absent: paraspinal tenderness - Neurological Exam Neurological Exam: Alert, Awake, Oriented x3 - Psychiatric Exam Psychiatric exam: Normal Affect, Normal Mood - Skin Skin Exam: Dry, Intact Assessment and Plan - Assessment and Plan (Free Text) Assessment: This is a 51 yr. old female with past medical history of liver cirrhosis, etoh abuse who presents with dysphagia and abdominal swelling for 6 weeks. Plan: 1. Ascites 2/2 cirrhosis -Patient admitted and underwent a Therapeutic and Diagnostic Paracentesis. -Ascitic fluid cx will be sent. -MELD Score of 9( has a 1.9% risk of mortality) -SAAG 1.4 g/dL. Portal hypertension likely the cause of ascites. - GI consult ordered appreciated -ID consult rec's appreciated. -Abdomen/pelvis CT:showed Cirrhosis, Moderate ascites, Possible enteritis/ colitis, and Mild cystitis -IR consult pending for second Tap. Patient expected to have second tap done tomorrow 10/29/16. 2. Dysphagia -Currently on regular diet. Patient will be monitored closely. 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 Scheduled an appointment for next Thursday with Dr. Newman to follow up with CT findings. Discussed with patient the appointment and necessary steps going forward. 3. Anemia - Hgb:8.3. Patient was Type and Cross-matched. Continue to closely monitor. - Monitor H/H - Transfuse Hgb if under 7 - Iron studies panel if blood count continues to drop. 4. Abnormal electrolytes - Calcium gluconate & potassium chloride given to replete hypocalcemia & hypokalemia -Continue to monitor with serial CMP's. Will replete as needed. 5. Alcohol abuse/Withdrawal - urine alcohol & drug screen - counseled on EtOH cessation -Monitor for withdrawal symptoms. -Continue CIWA protocol, Seizure protocol, Fall Protocols ordered. 6. Shingles vs. bacterial infection -currently not complaining of pain. Continue PO antibiotics. . -Will monitor closely. GI & DVT PPX - Continue Protonix - Continue SCDs <Rob VELASQUEZ,[facility] - Last Filed: 10/30/16 14:35> Objective - Vital Signs/Intake and Output Vital Signs (last 24 hours): Temp Pulse Resp BP Pulse Ox 99.8 F H 94 H 20 100/60 99 10/30/16 06:00 10/30/16 06:00 10/30/16 06:00 10/30/16 06:00 10/30/16 06:00 Intake and Output: 10/30/16 10/30/16 06:59 18:59 Intake Total 880 Balance 880 - Medications Medications: Current Medications Acetaminophen (Tylenol 325mg Tab) 650 mg PO Q4H PRN PRN Reason: Temperature Last Admin: 10/29/16 12:20 Dose: 650 mg Betamethasone/Clotrimazole (Lotrisone) 0 ml TOP BID [facility] Folic Acid (Folic Acid) 1 mg PO DAILY [facility] Last Admin: 10/30/16 09:56 Dose: 1 mg Ceftriaxone Sodium (Rocephin 2 Gm Ivpb) 2 gm in 100 mls @ 100 mls/hr IVPB DAILY [facility] PRN Reason: Protocol Sodium Chloride (Sodium Chloride 0.9%) 900 mls @ 100 mls/hr IV .Q9H [facility] Stop: 10/31/16 00:14 Lorazepam (Ativan) 1 mg IVP Q3 PRN; Protocol PRN Reason: Agitation Magnesium Oxide (Mag-Ox) 400 mg PO TID [facility] Last Admin: 10/30/16 13:39 Dose: 400 mg Multivitamins/Minerals (Therapeutic-M Tab) 1 tab PO 0800 [facility] Last Admin: 10/30/16 09:56 Dose: 1 tab Ondansetron HCl (Zofran Inj) 4 mg IVP Q4H PRN PRN Reason: Nausea/Vomiting Pantoprazole Sodium (Protonix Inj) 40 mg IVP DAILY [facility] Last Admin: 10/30/16 09:56 Dose: 40 mg Thiamine HCl (Vitamin B1 Tab) 100 mg PO DAILY [facility] Last Admin: 10/30/16 09:56 Dose: 100 mg - Labs Labs: 10/30/16 06:23 10/30/16 06:23 PT 14.1 Seconds (9.9-11.8) H 10/24/16 06:40 INR 1.31 (0.93-1.08) H 10/24/16 06:40 APTT 28.6 Seconds (23.7-30.8) 10/21/16 08:25 Attending/Attestation - Attestation I have personally seen and examined this patient.: Yes I have fully participated in the care of the patient.: Yes I have reviewed all pertinent clinical information, including history, physical exam and plan: Yes Notes (Text): 10/30/16 14:32 Patient was seen and examined with director of graduate medical education. Agreed with resident assessment and plan. a 51 yo Female with significant PMH for alcohol abuse and cirrhosis, was admitted with history of dysphagia and abdominal swelling that has become progressively worse, was found to have ascites. She is status post ascites; 4.3 L removed. 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 Fluid studies were negative for SBP.Cultures arenegative, does has elevated lipase in ascitic fluid, could be due to Pancreatitis.Patient is feeling that belly is more distended and is painful.We will get IR consult for Paracentesis. 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 The need of fluid and dietry compliance was also discussed in detail with patient. Management plan was discussed in detail with patient Education was provided.
[2016-10-29 06:21] LABS: BASO # 0.01 K/mm3 (0.0-2.0); BASO % 0.2 % (0.0-3.0); EOS # 0.1 (0.0-0.7); EOS % 1.7 % (1.5-5.0); GRAN # 3.67 (1.4-6.5); GRAN % 77.6 % (50.0-68.0); HEMATOCRIT 27.1 % (36.0-48.0); LYMPH # 0.3 (1.2-3.4); LYMPH % 6.3 % (22.0-35.0); MEAN CORPUSCULAR HEMOGLOBIN 27.2 pg (25.0-35.0); MEAN CORPUSCULAR HGB CONC 30.3 g/dl (31.0-37.0); MEAN PLATELET VOLUME 11.8 fl (7.0-11.0); MONO # 0.7 (0.1-0.6); MONO % 14.2 % (1.0-6.0); RED CELL DISTRIBUTION WIDTH 16.6 % (11.5-14.5); WHITE BLOOD COUNT 4.7 10^3/ul (4.5-11.0)
[2016-10-29 06:42] LABS: ALB/GLOB RATIO 0.8 (1.1-1.8); ALKALINE PHOSPHATASE 60 U/L (38-126); ALT/SGPT 29 U/L (7-56); AST/SGOT 32 U/L (14-36); BILIRUBIN,TOTAL 0.3 mg/dL (0.2-1.3); BLOOD UREA NITROGEN 9 mg/dL (7-21); CALCIUM 7.7 mg/dL (8.4-10.5); CARBON DIOXIDE 26 mmol/L (21-33); CHLORIDE 107 mmol/L (98-107); GFR AFRICAN-AMERICAN > 60; GLUCOSE,RANDOM 110 mg/dL (70-110); POTASSIUM 3.6 mmol/L (3.6-5.0); SODIUM 138 mmol/L (132-148); TOTAL PROTEIN 4.9 g/dL (5.8-8.3)
[2016-10-29] MEDS ORDERED: Barium Sulfate Susp 2.1% w/v, 2.0% w/w 450 mL Bottle PO ONE (09:01)
[2016-10-29] MEDS: Magnesium Oxide 400 mg Tab UD PO SCH ×3 (12:07→17:35)
[2016-10-29] MEDS: Multivitamin With Minerals Tab PO SCH (12:08)
--- NOTE | 2016-10-29 14:13 | US ---
PROCEDURE: Ultrasound guided paracentesis. HISTORY: Alcoholic cirrhosis. Recent paracentesis. Recurrent abdominal pain and distension. Needs a centesis. PHYSICIAN(S): Andres Lagos MD. TECHNIQUE: The relative risks and indications for the procedure were explained to the patient and informed written consent obtained. Sonography of the abdomen was performed in a supine position. This revealed a small to moderate amount of non-loculated ascites, greatest in the right lower quadrant. A puncture site was selected and the area was prepped and draped in the usual sterile fashion. 1% Xylocaine was used to anesthetize the skin and soft tissues. A 7 Turkish paracentesis catheter was trocared into the right lower quadrantand 2100 cc of chylous fluid removed. No labs were sent. IMPRESSION: Ultrasound-guided paracentesis in the right lower quadrant. 2100 cc of chylous fluid were aspirated.
--- NOTE | 2016-10-29 15:23 | CP.PCM.PN ---
<Jena Altman - Last Filed: 10/29/16 15:58> Subjective - Date & Time of Evaluation Date of Evaluation: 10/29/16 Time of Evaluation: 13:18 - Subjective Subjective: Seen and examined at the bedside, chart review. Patient went for paracentesis this morning. Awaiting to go for CT scan. Patient complains of abdominal discomfort, no reports of nausea vomiting or overt GI bleed. Objective - Vital Signs/Intake and Output Vital Signs (last 24 hours): Temp Pulse Resp BP Pulse Ox 99.4 F 100 H 20 101/62 93 L 10/29/16 06:00 10/29/16 06:00 10/29/16 06:00 10/29/16 06:00 10/29/16 06:00 Intake and Output: 10/29/16 10/29/16 06:59 18:59 Intake Total 120 240 Output Total 0 Balance 120 240 - Medications Medications: Current Medications Acetaminophen (Tylenol 325mg Tab) 650 mg PO Q4H PRN PRN Reason: Temperature Last Admin: 10/29/16 12:20 Dose: 650 mg Cephalexin Monohydrate (Keflex) 250 mg PO Q6 [facility] PRN Reason: Protocol Last Admin: 10/29/16 12:11 Dose: 250 mg Folic Acid (Folic Acid) 1 mg PO DAILY [facility] Last Admin: 10/29/16 12:08 Dose: 1 mg Lorazepam (Ativan) 1 mg IVP Q3 PRN; Protocol PRN Reason: Agitation Magnesium Oxide (Mag-Ox) 400 mg PO TID [facility] Last Admin: 10/29/16 12:07 Dose: 400 mg Multivitamins/Minerals (Therapeutic-M Tab) 1 tab PO 0800 [facility] Last Admin: 10/29/16 12:08 Dose: 1 tab Ondansetron HCl (Zofran Inj) 4 mg IVP Q4H PRN PRN Reason: Nausea/Vomiting Pantoprazole Sodium (Protonix Inj) 40 mg IVP DAILY [facility] Last Admin: 10/29/16 12:08 Dose: 40 mg Thiamine HCl (Vitamin B1 Tab) 100 mg PO DAILY [facility] Last Admin: 10/29/16 12:07 Dose: 100 mg - Labs Labs: 10/29/16 06:00 10/29/16 06:00 PT 14.1 Seconds (9.9-11.8) H 10/24/16 06:40 INR 1.31 (0.93-1.08) H 10/24/16 06:40 APTT 28.6 Seconds (23.7-30.8) 10/21/16 08:25 - Constitutional Appears: No Acute Distress - Eye Exam Eye Exam: Normal appearance. absent: Scleral icterus - ENT Exam ENT Exam: Mucous Membranes Moist - Respiratory Exam Respiratory Exam: NORMAL BREATHING PATTERN. absent: Respiratory Distress - Cardiovascular Exam Cardiovascular Exam: +S1, +S2 - GI/Abdominal Exam GI & Abdominal Exam: Distended, Firm, Soft, Tenderness, Hernia, Normal Bowel Sounds. absent: Guarding, Rebound - Extremities Exam Extremities Exam: Normal Capillary Refill. absent: Calf Tenderness, Pedal Edema - Neurological Exam Neurological Exam: Alert, Awake, Oriented x3 - Skin Skin Exam: Dry, Warm Assessment and Plan - Assessment and Plan (Free Text) Assessment: ASSESSMENT: Liver Cirrhoisis secondary to ETOH Abdominal ascites, s/p large volume paracentesis, SAAG ratio 1.4 g/dl Portal HTN likely the cause of ascites, cytology fluid, negative for maliganant cells. S/P EGD:hypopharyngeal lesion noted, pt to follow up w. ENT out pt for bx Anxiety Anemia PLAN: Paracentesis today Follow-up CT scan of abdomen and pelivs that's pending Aldactone/Lasix, low BP parameters on PO Keflex monitor electrolytes elective out patient colonoscopy pt to follow up w. ENT out pt for bx continue GI prophylaxsis Seen and discussed w/ Dr. Herrera <Olman Herrera V - Last Filed: 10/29/16 23:24> Objective - Vital Signs/Intake and Output Vital Signs (last 24 hours): Temp Pulse Resp BP Pulse Ox 98.9 F 88 20 90/63 L 97 10/29/16 16:00 10/29/16 16:00 10/29/16 16:00 10/29/16 16:00 10/29/16 16:00 Intake and Output: 10/29/16 10/30/16 18:59 06:59 Intake Total 840 640 Balance 840 640 - Medications Medications: Current Medications Acetaminophen (Tylenol 325mg Tab) 650 mg PO Q4H PRN PRN Reason: Temperature Last Admin: 10/29/16 12:20 Dose: 650 mg Cephalexin Monohydrate (Keflex) 250 mg PO Q6 [facility] PRN Reason: Protocol Last Admin: 10/29/16 17:35 Dose: 250 mg Folic Acid (Folic Acid) 1 mg PO DAILY [facility] Last Admin: 10/29/16 12:08 Dose: 1 mg Lorazepam (Ativan) 1 mg IVP Q3 PRN; Protocol PRN Reason: Agitation Magnesium Oxide (Mag-Ox) 400 mg PO TID [facility] Last Admin: 10/29/16 17:35 Dose: 400 mg Multivitamins/Minerals (Therapeutic-M Tab) 1 tab PO 0800 [facility] Last Admin: 10/29/16 12:08 Dose: 1 tab Ondansetron HCl (Zofran Inj) 4 mg IVP Q4H PRN PRN Reason: Nausea/Vomiting Pantoprazole Sodium (Protonix Inj) 40 mg IVP DAILY [facility] Last Admin: 10/29/16 12:08 Dose: 40 mg Thiamine HCl (Vitamin B1 Tab) 100 mg PO DAILY [facility] Last Admin: 10/29/16 12:07 Dose: 100 mg - Labs Labs: 10/29/16 06:00 10/29/16 06:00 PT 14.1 Seconds (9.9-11.8) H 10/24/16 06:40 INR 1.31 (0.93-1.08) H 10/24/16 06:40 APTT 28.6 Seconds (23.7-30.8) 10/21/16 08:25 Attending/Attestation - Attestation I have personally seen and examined this patient.: Yes I have fully participated in the care of the patient.: Yes I have reviewed all pertinent clinical information, including history, physical exam and plan: Yes Notes (Text): This is an addendum to GI progress report dictated by Jena Altman APN.The patient was seen and examined earlier. Medical records, lab studies, imagings were reviewed. Last 24 hours events reviewed. Agreed with the above treatment plan as outlined in Jena Altman APN's notes the with the addition of the following ; the patient has significant tenderness on examination in a.m. and hence CT of the abdomen and pelvis was requested Paracentesis was done Follow-up ascitic fluid studies Requested ascitic fluid albumin and the lipase Significant pancreatitis was noticed in the CT Ultrasound did not reveal any gallstones. Etiology is unclear Would change the diet to cleaar liquids Dietary therapeutic has been discontinued as Patient's blood pressure remains in the low side 10/29/16 23:22
--- NOTE | 2016-10-29 15:56 | CP.PCM.PN ---
<Ger Dickson - Last Filed: 10/29/16 16:00> Subjective - Date & Time of Evaluation Date of Evaluation: 10/29/16 Time of Evaluation: 06:53 - Subjective Subjective: Patient was seen and examined at bedside this morning. The patient is still reporting diffuse tenderness in the abdomen. The patient is expected to have a second paracentesis today. The patient denies any chest pain, shortness of breath, nausea, vomiting, lightheaded, dizziness, changes in vision, ear pain, tingling in the hands and feet and any other complaints. Objective - Vital Signs/Intake and Output Vital Signs (last 24 hours): Temp Pulse Resp BP Pulse Ox 99.4 F 100 H 20 101/62 93 L 10/29/16 06:00 10/29/16 06:00 10/29/16 06:00 10/29/16 06:00 10/29/16 06:00 Intake and Output: 10/29/16 10/29/16 06:59 18:59 Intake Total 120 840 Output Total 0 Balance 120 840 - Medications Medications: Current Medications Acetaminophen (Tylenol 325mg Tab) 650 mg PO Q4H PRN PRN Reason: Temperature Last Admin: 10/29/16 12:20 Dose: 650 mg Cephalexin Monohydrate (Keflex) 250 mg PO Q6 [facility] PRN Reason: Protocol Last Admin: 10/29/16 12:11 Dose: 250 mg Folic Acid (Folic Acid) 1 mg PO DAILY [facility] Last Admin: 10/29/16 12:08 Dose: 1 mg Lorazepam (Ativan) 1 mg IVP Q3 PRN; Protocol PRN Reason: Agitation Magnesium Oxide (Mag-Ox) 400 mg PO TID [facility] Last Admin: 10/29/16 14:56 Dose: 400 mg Multivitamins/Minerals (Therapeutic-M Tab) 1 tab PO 0800 [facility] Last Admin: 10/29/16 12:08 Dose: 1 tab Ondansetron HCl (Zofran Inj) 4 mg IVP Q4H PRN PRN Reason: Nausea/Vomiting Pantoprazole Sodium (Protonix Inj) 40 mg IVP DAILY [facility] Last Admin: 10/29/16 12:08 Dose: 40 mg Thiamine HCl (Vitamin B1 Tab) 100 mg PO DAILY [facility] Last Admin: 10/29/16 12:07 Dose: 100 mg - Labs Labs: 10/29/16 06:00 10/29/16 06:00 PT 14.1 Seconds (9.9-11.8) H 10/24/16 06:40 INR 1.31 (0.93-1.08) H 10/24/16 06:40 APTT 28.6 Seconds (23.7-30.8) 10/21/16 08:25 - Head Exam Head Exam: ATRAUMATIC, NORMAL INSPECTION, NORMOCEPHALIC - Eye Exam Eye Exam: EOMI, Normal appearance, PERRL. absent: Periorbital tenderness Pupil Exam: NORMAL ACCOMODATION, PERRL. absent: Irregular - ENT Exam ENT Exam: Mucous Membranes Moist - Neck Exam Neck Exam: Normal Inspection - Respiratory Exam Respiratory Exam: Clear to Ausculation Bilateral, NORMAL BREATHING PATTERN. absent: Accessory Muscle Use, Chest Wall Tenderness - Cardiovascular Exam Cardiovascular Exam: REGULAR RHYTHM, RRR, +S1, +S2. absent: Gallop, Rubs - GI/Abdominal Exam GI & Abdominal Exam: Distended, Firm, Tenderness, Normal Bowel Sounds. absent: Rigid, Soft - Extremities Exam Extremities Exam: Full ROM - Back Exam Back Exam: NORMAL INSPECTION. absent: paraspinal tenderness - Neurological Exam Neurological Exam: Alert, Awake, CN II-XII Intact - Psychiatric Exam Psychiatric exam: Normal Affect, Normal Mood - Skin Skin Exam: Dry, Intact Assessment and Plan - Assessment and Plan (Free Text) Assessment: This is a 51 yr. old female with past medical history of liver cirrhosis, etoh abuse who presents with dysphagia and abdominal swelling for 6 weeks. Plan: 1. Ascites 2/2 cirrhosis -Patient admitted and underwent a Therapeutic and Diagnostic Paracentesis. -Ascitic fluid cx will be sent. -MELD Score of 9( has a 1.9% risk of mortality) -SAAG 1.4 g/dL. Portal hypertension likely the cause of ascites. - GI consult ordered appreciated -ID consult rec's appreciated. -Abdomen/pelvis CT:showed Cirrhosis, Moderate ascites, Possible enteritis/ colitis, and Mild cystitis. Pending repeat Abdomen/pelvis ct. F/U with rec's tomorrow. -IR completed second tap. Will monitor closely overnight for any drops in blood pressure. 2. Dysphagia -Currently on regular diet and 1500ml fluid restriction. Patient will be monitored closely. 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 Scheduled an appointment for next Thursday with Dr. Newman to follow up with CT findings. Discussed with patient the appointment and necessary steps going forward. 3. Anemia - Hgb:8.2. Patient was Type and Cross-matched. Continue to closely monitor. - Monitor H/H - Transfuse Hgb if under 7 - Iron studies panel if blood count continues to drop. - OP colonoscopy recommended. 4. Abnormal electrolytes - Calcium gluconate & potassium chloride given to replete hypocalcemia & hypokalemia -Continue to monitor with serial CMP's. Will replete as needed. 5. Alcohol abuse/Withdrawal - urine alcohol & drug screen - counseled on EtOH cessation -Monitor for withdrawal symptoms. -Continue CIWA protocol, Seizure protocol, Fall Protocols ordered. 6. Shingles vs. bacterial infection -currently not complaining of pain and rash clinically looks better. Continue PO Keflex. -Will monitor closely. GI & DVT PPX - Continue Protonix - Continue SCDs <JavierAllan garl V - Last Filed: 10/29/16 22:19> Objective - Vital Signs/Intake and Output Vital Signs (last 24 hours): Temp Pulse Resp BP Pulse Ox 98.9 F 88 20 90/63 L 97 10/29/16 16:00 10/29/16 16:00 10/29/16 16:00 10/29/16 16:00 10/29/16 16:00 Intake and Output: 10/29/16 10/30/16 18:59 06:59 Intake Total 840 640 Balance 840 640 - Medications Medications: Current Medications Acetaminophen (Tylenol 325mg Tab) 650 mg PO Q4H PRN PRN Reason: Temperature Last Admin: 10/29/16 12:20 Dose: 650 mg Cephalexin Monohydrate (Keflex) 250 mg PO Q6 [facility] PRN Reason: Protocol Last Admin: 10/29/16 17:35 Dose: 250 mg Folic Acid (Folic Acid) 1 mg PO DAILY [facility] Last Admin: 10/29/16 12:08 Dose: 1 mg Lorazepam (Ativan) 1 mg IVP Q3 PRN; Protocol PRN Reason: Agitation Magnesium Oxide (Mag-Ox) 400 mg PO TID [facility] Last Admin: 10/29/16 17:35 Dose: 400 mg Multivitamins/Minerals (Therapeutic-M Tab) 1 tab PO 0800 [facility] Last Admin: 10/29/16 12:08 Dose: 1 tab Ondansetron HCl (Zofran Inj) 4 mg IVP Q4H PRN PRN Reason: Nausea/Vomiting Pantoprazole Sodium (Protonix Inj) 40 mg IVP DAILY [facility] Last Admin: 10/29/16 12:08 Dose: 40 mg Thiamine HCl (Vitamin B1 Tab) 100 mg PO DAILY [facility] Last Admin: 10/29/16 12:07 Dose: 100 mg - Labs Labs: 10/29/16 06:00 10/29/16 06:00 PT 14.1 Seconds (9.9-11.8) H 10/24/16 06:40 INR 1.31 (0.93-1.08) H 10/24/16 06:40 APTT 28.6 Seconds (23.7-30.8) 10/21/16 08:25 Attending/Attestation - Attestation I have personally seen and examined this patient.: Yes I have fully participated in the care of the patient.: Yes I have reviewed all pertinent clinical information, including history, physical exam and plan: Yes <Rob VELASQUEZ,[facility] - Last Filed: 10/31/16 13:47> Objective - Vital Signs/Intake and Output Vital Signs (last 24 hours): Temp Pulse Resp BP Pulse Ox 99.0 F 96 H 20 101/67 96 10/31/16 06:00 10/31/16 06:00 10/31/16 06:00 10/31/16 06:00 10/31/16 06:00 Intake and Output: 10/31/16 10/31/16 06:59 18:59 Intake Total 1740 240 Balance 1740 240 - Medications Medications: Current Medications Acetaminophen (Tylenol 325mg Tab) 650 mg PO Q4H PRN PRN Reason: Temperature Last Admin: 10/30/16 16:32 Dose: 650 mg Betamethasone/Clotrimazole (Lotrisone) 0 ml TOP BID [facility] Last Admin: 10/31/16 09:54 Dose: 1 applic Folic Acid (Folic Acid) 1 mg PO DAILY [facility] Last Admin: 10/31/16 09:54 Dose: 1 mg Cefepime HCl (Maxipime 1gm) 1 gm in 100 mls @ 100 mls/hr IVPB Q8 [facility] PRN Reason: Protocol Last Admin: 10/31/16 13:25 Dose: 100 mls/hr Lorazepam (Ativan) 1 mg IVP Q3 PRN; Protocol PRN Reason: Agitation Magnesium Oxide (Mag-Ox) 400 mg PO TID [facility] Last Admin: 10/31/16 13:24 Dose: 400 mg Multivitamins/Minerals (Therapeutic-M Tab) 1 tab PO 0800 [facility] Last Admin: 10/31/16 09:54 Dose: 1 tab Ondansetron HCl (Zofran Inj) 4 mg IVP Q4H PRN PRN Reason: Nausea/Vomiting Pantoprazole Sodium (Protonix Inj) 40 mg IVP DAILY [facility] Last Admin: 10/31/16 09:54 Dose: 40 mg Thiamine HCl (Vitamin B1 Tab) 100 mg PO DAILY [facility] Last Admin: 10/31/16 09:54 Dose: 100 mg Vancomycin HCl (Vancocin 25 Mg/Ml (Oral Use)) 125 mg PO QID [facility] PRN Reason: Protocol Last Admin: 10/31/16 13:24 Dose: 125 mg - Labs Labs: 10/31/16 06:46 10/31/16 06:46 PT 14.1 Seconds (9.9-11.8) H 10/24/16 06:40 INR 1.31 (0.93-1.08) H 10/24/16 06:40 APTT 28.6 Seconds (23.7-30.8) 10/21/16 08:25 Attending/Attestation - Attestation Notes (Text): 10/31/16 13:45 Patient was seen and examined with medical records secretary. Agreed with resident assessment and plan. a 51 yo Female with significant PMH for alcohol abuse and cirrhosis, was admitted with history of dysphagia and abdominal swelling that has become progressively worse, was found to have ascites. She is status post ascites 2 time, Ist time 4.3 L fluid removed, second time 2 L of fluid id removed.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 Fluid studies were negative for SBP.Cultures arenegative, does has elevated lipase in ascitic fluid, could be due to Pancreatitis.repeat Ct abdomen and Pelvis gas been orderd by GI, will follow up results. 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 The need of fluid and dietary compliance was also discussed in detail with patient. Management plan was discussed in detail with patient Education was provided.
--- NOTE | 2016-10-29 16:06 | CP.PCM.PN ---
<Jena Altman - Last Filed: 10/29/16 16:06> Subjective - Date & Time of Evaluation Date of Evaluation: 10/28/16 Time of Evaluation: 09:10 - Subjective Subjective: S&E at bedside still has abdominal discomfort to left quaderant, No N/V, able to tolerate some of breakfast. No acute overnight events. Objective - Vital Signs/Intake and Output Vital Signs (last 24 hours): Temp Pulse Resp BP Pulse Ox 99.5 F 98 H 18 84/57 L 95 10/28/16 08:51 10/28/16 08:51 10/28/16 08:51 10/28/16 10:43 10/28/16 08:51 Intake and Output: 10/28/16 10/28/16 06:59 18:59 Intake Total 240 Balance 240 - Medications Medications: Current Medications Acetaminophen (Tylenol 325mg Tab) 650 mg PO Q4H PRN PRN Reason: Temperature Last Admin: 10/23/16 16:52 Dose: 650 mg Cephalexin Monohydrate (Keflex) 250 mg PO Q6 [facility] PRN Reason: Protocol Folic Acid (Folic Acid) 1 mg PO DAILY [facility] Last Admin: 10/28/16 10:39 Dose: 1 mg Furosemide (Lasix) 20 mg PO DAILY [facility] Last Admin: 10/28/16 10:43 Dose: Not Given Lorazepam (Ativan) 1 mg IVP Q3 PRN; Protocol PRN Reason: Agitation Magnesium Oxide (Mag-Ox) 400 mg PO TID [facility] Last Admin: 10/28/16 10:39 Dose: 400 mg Multivitamins/Minerals (Therapeutic-M Tab) 1 tab PO 0800 [facility] Last Admin: 10/28/16 10:50 Dose: 1 tab Ondansetron HCl (Zofran Inj) 4 mg IVP Q4H PRN PRN Reason: Nausea/Vomiting Pantoprazole Sodium (Protonix Inj) 40 mg IVP DAILY [facility] Last Admin: 10/28/16 10:39 Dose: 40 mg Spironolactone (Aldactone) 50 mg PO DAILY [facility] Last Admin: 10/28/16 11:03 Dose: Not Given Thiamine HCl (Vitamin B1 Tab) 100 mg PO DAILY [facility] Last Admin: 10/28/16 10:49 Dose: 100 mg - Labs Labs: 10/28/16 05:15 10/28/16 05:15 PT 14.1 Seconds (9.9-11.8) H 10/24/16 06:40 INR 1.31 (0.93-1.08) H 10/24/16 06:40 APTT 28.6 Seconds (23.7-30.8) 10/21/16 08:25 - Constitutional Appears: No Acute Distress - Head Exam Head Exam: NORMOCEPHALIC - Eye Exam Eye Exam: Normal appearance. absent: Scleral icterus - ENT Exam ENT Exam: Mucous Membranes Moist - Neck Exam Neck Exam: Normal Inspection - Respiratory Exam Respiratory Exam: NORMAL BREATHING PATTERN. absent: Respiratory Distress - Cardiovascular Exam Cardiovascular Exam: +S1, +S2 - GI/Abdominal Exam GI & Abdominal Exam: Distended (less), Firm, Tenderness (left quaderant), Hernia (umblilical), Normal Bowel Sounds. absent: Guarding, Rebound - Extremities Exam Extremities Exam: Normal Capillary Refill. absent: Calf Tenderness, Pedal Edema - Neurological Exam Neurological Exam: Alert, Awake, Oriented x3 Assessment and Plan - Assessment and Plan (Free Text) Assessment: ASSESSMENT: Liver Cirrhoisis secondary to ETOH Abdominal ascites, s/p large volume paracentesis, SAAG ratio 1.4 g/dl Portal HTN likely the cause of ascites S/P EGD:hypopharyngeal lesion noted, pt to follow up w. ENT out pt for bx PLAN: continue Aldactone 50mg PO daily continue lasix 20mg PO daily on PO Keflex monitor electrolytes elective out patient colonoscopy pt to follow up w. ENT out pt for bx continue GI prophylaxsis Seen and discussed w/ Dr. Herrera <Olman Herrera V - Last Filed: 10/31/16 23:59> Objective - Vital Signs/Intake and Output Vital Signs (last 24 hours): Temp Pulse Resp BP Pulse Ox 98 F 88 20 100/70 97 10/31/16 16:00 10/31/16 16:00 10/31/16 16:00 10/31/16 16:00 10/31/16 16:00 Intake and Output: 10/31/16 11/01/16 18:59 06:59 Intake Total 240 780 Balance 240 780 - Medications Medications: Current Medications Acetaminophen (Tylenol 325mg Tab) 650 mg PO Q4H PRN PRN Reason: Temperature Last Admin: 10/30/16 16:32 Dose: 650 mg Betamethasone/Clotrimazole (Lotrisone) 0 ml TOP BID [facility] Last Admin: 10/31/16 17:27 Dose: 1 applic Folic Acid (Folic Acid) 1 mg PO DAILY [facility] Last Admin: 10/31/16 09:54 Dose: 1 mg Cefepime HCl (Maxipime 1gm) 1 gm in 100 mls @ 100 mls/hr IVPB Q8 [facility] PRN Reason: Protocol Last Admin: 10/31/16 22:57 Dose: 100 mls/hr Lorazepam (Ativan) 1 mg IVP Q3 PRN; Protocol PRN Reason: Agitation Magnesium Oxide (Mag-Ox) 400 mg PO TID [facility] Last Admin: 10/31/16 17:27 Dose: 400 mg Multivitamins/Minerals (Therapeutic-M Tab) 1 tab PO 0800 [facility] Last Admin: 10/31/16 09:54 Dose: 1 tab Ondansetron HCl (Zofran Inj) 4 mg IVP Q4H PRN PRN Reason: Nausea/Vomiting Pantoprazole Sodium (Protonix Inj) 40 mg IVP DAILY [facility] Last Admin: 10/31/16 09:54 Dose: 40 mg Thiamine HCl (Vitamin B1 Tab) 100 mg PO DAILY [facility] Last Admin: 10/31/16 09:54 Dose: 100 mg Vancomycin HCl (Vancocin 25 Mg/Ml (Oral Use)) 125 mg PO QID [facility] PRN Reason: Protocol Last Admin: 10/31/16 22:57 Dose: 125 mg - Labs Labs: 10/31/16 06:46 10/31/16 06:46 PT 14.1 Seconds (9.9-11.8) H 10/24/16 06:40 INR 1.31 (0.93-1.08) H 10/24/16 06:40 APTT 28.6 Seconds (23.7-30.8) 10/21/16 08:25 Attending/Attestation - Attestation I have personally seen and examined this patient.: Yes I have fully participated in the care of the patient.: Yes I have reviewed all pertinent clinical information, including history, physical exam and plan: Yes Notes (Text): 10/31/16 23:59 p
--- NOTE | 2016-10-29 17:51 | CT ---
PROCEDURE: CT Abdomen and Pelvis with contrast HISTORY: Abdominal pain. Relevant interventional procedure(s): 10/22/2016 paracentesis and 10/29/2016 paracentesis with retrieval of 2.1 L of chylous fluid COMPARISON: 10/22/2016 CT abdomen and pelvis TECHNIQUE: Contrast dose: Oral contrast only. Radiation dose: Total exam DLP = 311.76 mGy-cm. This CT exam was performed using one or more of the following dose reduction techniques: Automated exposure control, adjustment of the mA and/or kV according to patient size, and/or use of iterative reconstruction technique. FINDINGS: LOWER THORAX: Platelike atelectasis right lower lobe. LIVER: Cirrhotic appearance, contour of the liver. GALLBLADDER AND BILE DUCTS: Unremarkable. PANCREAS: Edematous pancreas a new finding compared to the prior study consistent with acute pancreatitis. The absence of intravenous contrast precludes assessment for necrotizing pancreatitis. Peripancreatic inflammatory changes identified. SPLEEN: Unremarkable. ADRENALS: Unremarkable. No mass. KIDNEYS AND URETERS: Lymph VASCULATURE: Unremarkable. No aortic aneurysm. BOWEL: Diffuse enteritis similar to that seen previously without evidence of mechanical bowel obstruction. APPENDIX: No abnormalities to suggest acute appendicitis. No right lower quadrant inflammatory processes identified. PERITONEUM: Ascitic fluid remains, overall volume has diminished compared to the prior study. LYMPH NODES: Unremarkable. No enlarged lymph nodes. BLADDER: Persistent bladder wall thickening which may in part be underfilling. In the appropriate clinical setting, cystitis should be considered. REPRODUCTIVE: Unremarkable. BONES: No acute fracture. OTHER FINDINGS: Diffuse moderate -severe anasarca represents a progressive finding compared to the prior study. IMPRESSION: Acute pancreatitis incompletely characterized in the absence of intravenous contrast. Additional benign and incidental findings identified. Ascites remains but is diminished in volume. Moderate -severe anasarca of is a progressive finding. Stable enteritis.
[2016-10-30 06:41] LABS: BASO # 0.02 K/mm3 (0.0-2.0); BASO % 0.2 % (0.0-3.0); EOS % 0.2 % (1.5-5.0); GRAN # 10.62 (1.4-6.5); GRAN % 88.3 % (50.0-68.0); HEMATOCRIT 28.1 % (36.0-48.0); LYMPH # 0.2 (1.2-3.4); LYMPH % 1.8 % (22.0-35.0); MEAN CELL VOLUME 88.9 fl (80.0-105.0); MEAN CORPUSCULAR HEMOGLOBIN 26.9 pg (25.0-35.0); MEAN CORPUSCULAR HGB CONC 30.2 g/dl (31.0-37.0); MEAN PLATELET VOLUME 11.2 fl (7.0-11.0); MONO # 1.1 (0.1-0.6); MONO % 9.5 % (1.0-6.0); PLATELET COUNT 124 10^3/uL (120.0-450.0); RED CELL DISTRIBUTION WIDTH 16.7 % (11.5-14.5)
[2016-10-30 06:51] LABS: ALB/GLOB RATIO 0.8 (1.1-1.8); ALKALINE PHOSPHATASE 63 U/L (38-126); ALT/SGPT 20 U/L (7-56); AST/SGOT 30 U/L (14-36); BILIRUBIN,TOTAL 0.3 mg/dL (0.2-1.3); BLOOD UREA NITROGEN 10 mg/dL (7-21); CALCIUM 7.7 mg/dL (8.4-10.5); CARBON DIOXIDE 24 mmol/L (21-33); CHLORIDE 107 mmol/L (98-107); GFR AFRICAN-AMERICAN > 60; GLUCOSE,RANDOM 116 mg/dL (70-110); POTASSIUM 3.7 mmol/L (3.6-5.0); SODIUM 138 mmol/L (132-148); TOTAL PROTEIN 5.2 g/dL (5.8-8.3)
[2016-10-30 08:14] LABS: NEUTROPHIL 86 % (50.0-70.0)
[2016-10-30 08:15] LABS: ANISOCYTOSIS 1+; GIANT PLATELETS PRESENT; HYPOCHROMIA 1+; LARGE PLATELETS PRESENT; PLATELET ESTIMATE SL DEC (NORMAL); POLYCHROMASIA SLIGHT
[2016-10-30] MEDS: Multivitamin With Minerals Tab PO SCH (09:56)
[2016-10-30] MEDS: Magnesium Oxide 400 mg Tab UD PO SCH ×3 (09:56→17:18)
[2016-10-30 10:20] LABS: AMYLASE 78 U/L (35-125); LIPASE 316 U/L (23-300)
--- NOTE | 2016-10-30 14:04 | CP.PCM.PN ---
Subjective - Date & Time of Evaluation Date of Evaluation: 10/30/16 Time of Evaluation: 10:50 - Subjective Subjective: Comfortable, had paracentesis done, no fevers. Objective - Vital Signs/Intake and Output Vital Signs (last 24 hours): Temp Pulse Resp BP Pulse Ox 99.8 F H 94 H 20 100/60 99 10/30/16 06:00 10/30/16 06:00 10/30/16 06:00 10/30/16 06:00 10/30/16 06:00 Intake and Output: 10/30/16 10/30/16 06:59 18:59 Intake Total 880 Balance 880 - Medications Medications: Current Medications Acetaminophen (Tylenol 325mg Tab) 650 mg PO Q4H PRN PRN Reason: Temperature Last Admin: 10/29/16 12:20 Dose: 650 mg Cephalexin Monohydrate (Keflex) 250 mg PO Q6 [facility] PRN Reason: Protocol Last Admin: 10/30/16 05:33 Dose: 250 mg Folic Acid (Folic Acid) 1 mg PO DAILY [facility] Last Admin: 10/29/16 12:08 Dose: 1 mg Lorazepam (Ativan) 1 mg IVP Q3 PRN; Protocol PRN Reason: Agitation Magnesium Oxide (Mag-Ox) 400 mg PO TID [facility] Last Admin: 10/29/16 17:35 Dose: 400 mg Multivitamins/Minerals (Therapeutic-M Tab) 1 tab PO 0800 [facility] Last Admin: 10/29/16 12:08 Dose: 1 tab Ondansetron HCl (Zofran Inj) 4 mg IVP Q4H PRN PRN Reason: Nausea/Vomiting Pantoprazole Sodium (Protonix Inj) 40 mg IVP DAILY [facility] Last Admin: 10/29/16 12:08 Dose: 40 mg Thiamine HCl (Vitamin B1 Tab) 100 mg PO DAILY [facility] Last Admin: 10/29/16 12:07 Dose: 100 mg - Labs Labs: 10/30/16 06:23 10/30/16 06:23 PT 14.1 Seconds (9.9-11.8) H 10/24/16 06:40 INR 1.31 (0.93-1.08) H 10/24/16 06:40 APTT 28.6 Seconds (23.7-30.8) 10/21/16 08:25 - Constitutional Appears: Non-toxic, No Acute Distress - Head Exam Head Exam: NORMAL INSPECTION - Respiratory Exam Respiratory Exam: Decreased Breath Sounds - Cardiovascular Exam Cardiovascular Exam: +S1, +S2 - GI/Abdominal Exam GI & Abdominal Exam: Distended, Soft. absent: Tenderness Assessment and Plan - Assessment and Plan (Free Text) Plan: Assessment Right malar area erythematous lesion, R/O allergic reaction, R/O fungal disease - no vesicles, no blisters - not herpes-zoster alcohol abuse liver cirrhosis with ascites S/P paracentesis depression anxiety Plan Can put lotrisone cream over the right malar area ascitic fluid only has 100 WBC's - not SBP - will monitor off antibiotics last year, hepatitis profile and HIV screen was negative will continue to monitor clinically
[2016-10-30] MEDS ORDERED: Sodium Chloride 0.9% 1,000 ML IV SCH (14:15)
[2016-10-30] MEDS ORDERED: Sodium Chloride 0.9% 900 ML IV SCH (14:15)
[2016-10-30] MEDS ORDERED: cefTRIAXone 2 GM IN NS 2 GM/100 ML BAG IVPB SCH (14:15)
--- NOTE | 2016-10-30 15:17 | CP.PCM.PN ---
<Ger Dickson - Last Filed: 10/30/16 15:19> Subjective - Date & Time of Evaluation Date of Evaluation: 10/30/16 Time of Evaluation: 07:14 - Subjective Subjective: Patient was seen and examined at bedside this morning s/p paracentesis day #1. The patient reports diarrhea and chills overnight. The patient is also reporting some her stomach being very tender to light touch. The patient denies any chest pain, headache, changes in vision, numbness, tingling, sore throat or any other complaints. Objective - Vital Signs/Intake and Output Vital Signs (last 24 hours): Temp Pulse Resp BP Pulse Ox 99.8 F H 94 H 20 100/60 99 10/30/16 06:00 10/30/16 06:00 10/30/16 06:00 10/30/16 06:00 10/30/16 06:00 Intake and Output: 10/30/16 10/30/16 06:59 18:59 Intake Total 880 Balance 880 - Medications Medications: Current Medications Acetaminophen (Tylenol 325mg Tab) 650 mg PO Q4H PRN PRN Reason: Temperature Last Admin: 10/29/16 12:20 Dose: 650 mg Betamethasone/Clotrimazole (Lotrisone) 0 ml TOP BID [facility] Folic Acid (Folic Acid) 1 mg PO DAILY [facility] Last Admin: 10/30/16 09:56 Dose: 1 mg Ceftriaxone Sodium (Rocephin 2 Gm Ivpb) 2 gm in 100 mls @ 100 mls/hr IVPB DAILY [facility] PRN Reason: Protocol Sodium Chloride (Sodium Chloride 0.9%) 900 mls @ 100 mls/hr IV .Q9H [facility] Stop: 10/31/16 00:14 Lorazepam (Ativan) 1 mg IVP Q3 PRN; Protocol PRN Reason: Agitation Magnesium Oxide (Mag-Ox) 400 mg PO TID [facility] Last Admin: 10/30/16 13:39 Dose: 400 mg Multivitamins/Minerals (Therapeutic-M Tab) 1 tab PO 0800 [facility] Last Admin: 10/30/16 09:56 Dose: 1 tab Ondansetron HCl (Zofran Inj) 4 mg IVP Q4H PRN PRN Reason: Nausea/Vomiting Pantoprazole Sodium (Protonix Inj) 40 mg IVP DAILY [facility] Last Admin: 10/30/16 09:56 Dose: 40 mg Thiamine HCl (Vitamin B1 Tab) 100 mg PO DAILY [facility] Last Admin: 10/30/16 09:56 Dose: 100 mg - Labs Labs: 10/30/16 06:23 10/30/16 06:23 PT 14.1 Seconds (9.9-11.8) H 10/24/16 06:40 INR 1.31 (0.93-1.08) H 10/24/16 06:40 APTT 28.6 Seconds (23.7-30.8) 10/21/16 08:25 - Head Exam Head Exam: ATRAUMATIC, NORMAL INSPECTION, NORMOCEPHALIC - Eye Exam Eye Exam: EOMI, Normal appearance, PERRL Pupil Exam: NORMAL ACCOMODATION, PERRL. absent: Irregular - ENT Exam ENT Exam: Mucous Membranes Moist - Neck Exam Neck Exam: Normal Inspection - Respiratory Exam Respiratory Exam: Clear to Ausculation Bilateral, NORMAL BREATHING PATTERN - Cardiovascular Exam Cardiovascular Exam: REGULAR RHYTHM, +S1, +S2 - GI/Abdominal Exam GI & Abdominal Exam: Guarding, Rigid, Tenderness - Extremities Exam Extremities Exam: Full ROM - Back Exam Back Exam: NORMAL INSPECTION. absent: paraspinal tenderness - Neurological Exam Neurological Exam: Alert, Awake, Oriented x3 - Psychiatric Exam Psychiatric exam: Normal Affect, Normal Mood - Skin Skin Exam: Dry Assessment and Plan - Assessment and Plan (Free Text) Assessment: This is a 51 yr. old female with past medical history of liver cirrhosis, etoh abuse who presents with dysphagia and abdominal swelling for 6 weeks. Plan: 1. Ascites 2/2 cirrhosis vs. SBP -Patient admitted and underwent a Therapeutic and Diagnostic Paracentesis s/p Day#1 -Ascitic fluid cx will be sent. follow up with rec's. -MELD Score of 9( has a 1.9% risk of mortality) -SAAG 1.4 g/dL. Portal hypertension likely the cause of ascites. - GI consult ordered appreciated -ID consult rec's appreciated. -Abdomen/pelvis CT:showed Cirrhosis, Moderate ascites, Possible enteritis/ colitis, and Mild cystitis. Pending repeat Abdomen/pelvis ct. F/U with rec's tomorrow. -IR completed second tap. -Hypotensive today (100/60). Will give 1L NS today and then d/c the fluids. 2. Leukocytosis -WBC (12) today. Patient started on Rocephin. -Ascites fluid results still pending. -Will follow up tomorrow with cbc. 2. Dysphagia -Currently on regular diet and 1500ml fluid restriction. Patient will be monitored closely. 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 Scheduled an appointment for next Thursday with Dr. Newman to follow up with CT findings. Discussed with patient the appointment and necessary steps going forward. 3. Anemia - Hgb:8.5. Patient was Type and Cross-matched. Continue to closely monitor. - Monitor H/H - Transfuse Hgb if under 7 - Iron studies panel if blood count continues to drop. - OP colonoscopy recommended. 4. Abnormal electrolytes - Calcium gluconate & potassium chloride given to replete hypocalcemia & hypokalemia -Continue to monitor with serial CMP's. Will replete as needed. 5. Alcohol abuse/Withdrawal - urine alcohol & drug screen - counseled on EtOH cessation -Monitor for withdrawal symptoms. -Continue CIWA protocol, Seizure protocol, Fall Protocols ordered. 6. Shingles vs. bacterial infection -currently not complaining of pain and rash clinically looks better. Continue PO Keflex. -Will monitor closely. GI & DVT PPX - Continue Protonix - Continue SCDs <Rob VELASQUEZ,[facility] - Last Filed: 10/31/16 13:52> Objective - Vital Signs/Intake and Output Vital Signs (last 24 hours): Temp Pulse Resp BP Pulse Ox 99.0 F 96 H 20 101/67 96 10/31/16 06:00 10/31/16 06:00 10/31/16 06:00 10/31/16 06:00 10/31/16 06:00 Intake and Output: 10/31/16 10/31/16 06:59 18:59 Intake Total 1740 240 Balance 1740 240 - Medications Medications: Current Medications Acetaminophen (Tylenol 325mg Tab) 650 mg PO Q4H PRN PRN Reason: Temperature Last Admin: 10/30/16 16:32 Dose: 650 mg Betamethasone/Clotrimazole (Lotrisone) 0 ml TOP BID [facility] Last Admin: 10/31/16 09:54 Dose: 1 applic Folic Acid (Folic Acid) 1 mg PO DAILY [facility] Last Admin: 10/31/16 09:54 Dose: 1 mg Cefepime HCl (Maxipime 1gm) 1 gm in 100 mls @ 100 mls/hr IVPB Q8 [facility] PRN Reason: Protocol Last Admin: 10/31/16 13:25 Dose: 100 mls/hr Lorazepam (Ativan) 1 mg IVP Q3 PRN; Protocol PRN Reason: Agitation Magnesium Oxide (Mag-Ox) 400 mg PO TID [facility] Last Admin: 10/31/16 13:24 Dose: 400 mg Multivitamins/Minerals (Therapeutic-M Tab) 1 tab PO 0800 [facility] Last Admin: 10/31/16 09:54 Dose: 1 tab Ondansetron HCl (Zofran Inj) 4 mg IVP Q4H PRN PRN Reason: Nausea/Vomiting Pantoprazole Sodium (Protonix Inj) 40 mg IVP DAILY [facility] Last Admin: 10/31/16 09:54 Dose: 40 mg Thiamine HCl (Vitamin B1 Tab) 100 mg PO DAILY [facility] Last Admin: 10/31/16 09:54 Dose: 100 mg Vancomycin HCl (Vancocin 25 Mg/Ml (Oral Use)) 125 mg PO QID [facility] PRN Reason: Protocol Last Admin: 10/31/16 13:24 Dose: 125 mg - Labs Labs: 10/31/16 06:46 10/31/16 06:46 PT 14.1 Seconds (9.9-11.8) H 10/24/16 06:40 INR 1.31 (0.93-1.08) H 10/24/16 06:40 APTT 28.6 Seconds (23.7-30.8) 10/21/16 08:25 Attending/Attestation - Attestation I have personally seen and examined this patient.: Yes I have fully participated in the care of the patient.: Yes I have reviewed all pertinent clinical information, including history, physical exam and plan: Yes Notes (Text): 10/31/16 13:48 Patient was seen and examined with medical laboratory technologist. Agreed with resident assessment and plan. a 51 yo Female with significant PMH for alcohol abuse and cirrhosis, was admitted with history of dysphagia and abdominal swelling that has become progressively worse, was found to have ascites. She is status post ascites; 4.3 L removed. 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 Fluid studies were negative for SBP first time.Cultures are negative, does has elevated lipase in ascitic fluid, could be due to Pancreatitis. Patient is feeling that belly is more distended and is painful.Repeat CT scan of abdomen and Pelvis showed Acute Pancreatitis, will hydrate patient, will hold of diuretics.Patient is on IV cefepime as per ID Dysphagia; and anemia, EGD and CT scan of soft tissue showed possible pharyngeal cancer, Patient was evaluated by ENT, out patient biopsy has been recommended.This issue was discussed in detail with patient. Case was discussed with GI. Management plan was discussed in detail with patient Education was provided.
--- NOTE | 2016-10-30 16:47 | CP.PCM.PN ---
<Jena Altman - Last Filed: 10/30/16 16:46> Subjective - Date & Time of Evaluation Date of Evaluation: 10/30/16 Time of Evaluation: 10:45 - Subjective Subjective: Seen and examined at the bedside earlier today, chart was reviewed. Patient had a CAT scan yesterday that showed acute pancreatitis, 2100 cc of fluid removed. An stable enteritis. The patient still having abdominal tenderness, some nausea no reports of vomiting or any overt GI bleed. The patient reported to have loose bowel movements last night. No reports of fever or chills. Objective - Vital Signs/Intake and Output Vital Signs (last 24 hours): Temp Pulse Resp BP Pulse Ox 101.2 F H 94 H 20 100/60 99 10/30/16 16:32 10/30/16 06:00 10/30/16 06:00 10/30/16 06:00 10/30/16 06:00 Intake and Output: 10/30/16 10/30/16 06:59 18:59 Intake Total 880 Balance 880 - Medications Medications: Current Medications Acetaminophen (Tylenol 325mg Tab) 650 mg PO Q4H PRN PRN Reason: Temperature Last Admin: 10/30/16 16:32 Dose: 650 mg Betamethasone/Clotrimazole (Lotrisone) 0 ml TOP BID [facility] Folic Acid (Folic Acid) 1 mg PO DAILY [facility] Last Admin: 10/30/16 09:56 Dose: 1 mg Ceftriaxone Sodium (Rocephin 2 Gm Ivpb) 2 gm in 100 mls @ 100 mls/hr IVPB DAILY [facility] PRN Reason: Protocol Last Admin: 10/30/16 15:30 Dose: 100 mls/hr Sodium Chloride (Sodium Chloride 0.9%) 900 mls @ 100 mls/hr IV .Q9H [facility] Stop: 10/31/16 00:14 Last Admin: 10/30/16 16:31 Dose: 100 mls/hr Lorazepam (Ativan) 1 mg IVP Q3 PRN; Protocol PRN Reason: Agitation Magnesium Oxide (Mag-Ox) 400 mg PO TID [facility] Last Admin: 10/30/16 13:39 Dose: 400 mg Multivitamins/Minerals (Therapeutic-M Tab) 1 tab PO 0800 [facility] Last Admin: 10/30/16 09:56 Dose: 1 tab Ondansetron HCl (Zofran Inj) 4 mg IVP Q4H PRN PRN Reason: Nausea/Vomiting Pantoprazole Sodium (Protonix Inj) 40 mg IVP DAILY [facility] Last Admin: 10/30/16 09:56 Dose: 40 mg Thiamine HCl (Vitamin B1 Tab) 100 mg PO DAILY [facility] Last Admin: 10/30/16 09:56 Dose: 100 mg - Labs Labs: 10/30/16 06:23 10/30/16 06:23 PT 14.1 Seconds (9.9-11.8) H 10/24/16 06:40 INR 1.31 (0.93-1.08) H 10/24/16 06:40 APTT 28.6 Seconds (23.7-30.8) 10/21/16 08:25 - Constitutional Appears: No Acute Distress - Head Exam Head Exam: NORMOCEPHALIC - Eye Exam Eye Exam: Normal appearance. absent: Scleral icterus - ENT Exam ENT Exam: Mucous Membranes Moist - Neck Exam Neck Exam: Normal Inspection - Respiratory Exam Respiratory Exam: NORMAL BREATHING PATTERN. absent: Respiratory Distress - Cardiovascular Exam Cardiovascular Exam: +S1, +S2 - GI/Abdominal Exam GI & Abdominal Exam: Distended (lless distended, status post paracentesis.), Soft, Tenderness, Hernia, Normal Bowel Sounds. absent: Guarding, Rebound - Extremities Exam Extremities Exam: Normal Capillary Refill. absent: Calf Tenderness - Neurological Exam Neurological Exam: Alert, Awake, Oriented x3 Assessment and Plan - Assessment and Plan (Free Text) Assessment: ASSESSMENT: Acute pancreatitis Liver Cirrhoisis secondary to ETOH Abdominal ascites, s/p large volume paracentesis, SAAG ratio 1.4 g/dl Portal HTN likely the cause of ascites, cytology fluid, negative for maliganant cells. S/P EGD:hypopharyngeal lesion noted, pt to follow up w. ENT out pt for bx Anxiety Anemia PLAN: Trend lipase clear liquid Continue IV F Monitor DEJON on ceftriaxone monitor electrolytes elective out patient colonoscopy pt to follow up w. ENT out pt for bx continue GI prophylaxsis Seen and discussed w/ Dr. Herrera <Olman Herrera V - Last Filed: 11/02/16 08:51> Objective - Vital Signs/Intake and Output Vital Signs (last 24 hours): Temp Pulse Resp BP Pulse Ox 98 F 88 20 100/70 97 10/31/16 16:00 10/31/16 16:00 10/31/16 16:00 10/31/16 16:00 10/31/16 16:00 Intake and Output: 10/31/16 11/01/16 18:59 06:59 Intake Total 240 780 Balance 240 780 - Medications Medications: Current Medications Acetaminophen (Tylenol 325mg Tab) 650 mg PO Q4H PRN PRN Reason: Temperature Last Admin: 10/30/16 16:32 Dose: 650 mg Betamethasone/Clotrimazole (Lotrisone) 0 ml TOP BID [facility] Last Admin: 10/31/16 17:27 Dose: 1 applic Folic Acid (Folic Acid) 1 mg PO DAILY [facility] Last Admin: 10/31/16 09:54 Dose: 1 mg Cefepime HCl (Maxipime 1gm) 1 gm in 100 mls @ 100 mls/hr IVPB Q8 [facility] PRN Reason: Protocol Last Admin: 10/31/16 22:57 Dose: 100 mls/hr Lorazepam (Ativan) 1 mg IVP Q3 PRN; Protocol PRN Reason: Agitation Magnesium Oxide (Mag-Ox) 400 mg PO TID [facility] Last Admin: 10/31/16 17:27 Dose: 400 mg Multivitamins/Minerals (Therapeutic-M Tab) 1 tab PO 0800 [facility] Last Admin: 10/31/16 09:54 Dose: 1 tab Ondansetron HCl (Zofran Inj) 4 mg IVP Q4H PRN PRN Reason: Nausea/Vomiting Pantoprazole Sodium (Protonix Inj) 40 mg IVP DAILY [facility] Last Admin: 10/31/16 09:54 Dose: 40 mg Thiamine HCl (Vitamin B1 Tab) 100 mg PO DAILY [facility] Last Admin: 10/31/16 09:54 Dose: 100 mg Vancomycin HCl (Vancocin 25 Mg/Ml (Oral Use)) 125 mg PO QID [facility] PRN Reason: Protocol Last Admin: 10/31/16 22:57 Dose: 125 mg - Labs Labs: 10/31/16 06:46 10/31/16 06:46 PT 14.1 Seconds (9.9-11.8) H 10/24/16 06:40 INR 1.31 (0.93-1.08) H 10/24/16 06:40 APTT 28.6 Seconds (23.7-30.8) 10/21/16 08:25 Attending/Attestation - Attestation I have personally seen and examined this patient.: Yes I have fully participated in the care of the patient.: Yes I have reviewed all pertinent clinical information, including history, physical exam and plan: Yes Notes (Text): This is an addendum to GI progress report dictated by Jena Altman APN.The patient was seen and examined earlier. Medical records, lab studies, imagings were reviewed. Last 24 hours events reviewed. Agreed with the above treatment plan as outlined in Jena Altman APN's notes the with the addition of the following On examination patient essentially has abdominal tenderness no rebound Etiology of pancreatitis unclear Sonogram revealed no stones Needs ENT follow-up for the hypopharyngeal lesion Decompensated cirrhosis 10/31/16 23:58
[2016-10-30] MEDS: Clotrimazole/Betamethasone Lotion(30 ml) TOP SCH (17:18)
[2016-10-31 07:03] LABS: BASO # 0.02 K/mm3 (0.0-2.0); BASO % 0.3 % (0.0-3.0); EOS % 0.7 % (1.5-5.0); GRAN # 4.83 (1.4-6.5); GRAN % 80.3 % (50.0-68.0); HEMATOCRIT 26.8 % (36.0-48.0); LYMPH # 0.4 (1.2-3.4); LYMPH % 6.7 % (22.0-35.0); MEAN CORPUSCULAR HEMOGLOBIN 26.9 pg (25.0-35.0); MEAN CORPUSCULAR HGB CONC 30.2 g/dl (31.0-37.0); MEAN PLATELET VOLUME 10.8 fl (7.0-11.0); MONO # 0.7 (0.1-0.6); RED CELL DISTRIBUTION WIDTH 16.8 % (11.5-14.5)
[2016-10-31 07:18] LABS: ALB/GLOB RATIO 0.8 (1.1-1.8); ALKALINE PHOSPHATASE 64 U/L (38-126); ALT/SGPT 27 U/L (7-56); AST/SGOT 25 U/L (14-36); BILIRUBIN,TOTAL 0.2 mg/dL (0.2-1.3); BLOOD UREA NITROGEN 7 mg/dL (7-21); CALCIUM 7.5 mg/dL (8.4-10.5); CARBON DIOXIDE 25 mmol/L (21-33); CHLORIDE 108 mmol/L (98-107); GFR AFRICAN-AMERICAN > 60; GLUCOSE,RANDOM 87 mg/dL (70-110); POTASSIUM 3.7 mmol/L (3.6-5.0); SODIUM 139 mmol/L (132-148); TOTAL PROTEIN 4.8 g/dL (5.8-8.3)
[2016-10-31] MEDS ORDERED: Vancomycin 1gm in NS 250ml 1 GM/250 ML BAG IVPB STA (08:54)
--- NOTE | 2016-10-31 09:26 | RAD ---
HISTORY: rule out pneumonia COMPARISON: 11/03/2015. FINDINGS: LUNGS: The lungs are clear. There are low lung volumes which may be related to poor inspiratory effort. PLEURA: No significant pleural effusion identified, no pneumothorax apparent. CARDIOVASCULAR: Normal. OSSEOUS STRUCTURES: No significant abnormalities. VISUALIZED UPPER ABDOMEN: Normal. OTHER FINDINGS: None. IMPRESSION: No active pulmonary disease.
[2016-10-31] MEDS: Multivitamin With Minerals Tab PO SCH (09:54)
[2016-10-31] MEDS: Magnesium Oxide 400 mg Tab UD PO SCH ×3 (09:54→17:27)
[2016-10-31] MEDS: Clotrimazole/Betamethasone Lotion(30 ml) TOP SCH ×2 (09:54→17:27)
[2016-10-31] MEDS: Cefepime 1gm in NS 100ml 1 GM/100 ML BAG IVPB SCH ×3 (10:02→22:57)
[2016-10-31] MEDS: Vancomycin 25 MG/ML PO SCH ×4 (10:03→22:57)
--- NOTE | 2016-10-31 11:53 | CP.PCM.PN ---
<Jena Altman - Last Filed: 10/31/16 11:50> Subjective - Date & Time of Evaluation Date of Evaluation: 10/31/16 Time of Evaluation: 09:20 - Subjective Subjective: S&E at bedside, chart reviewed, abdominal pain still present, w/ some improvement. No N/V, had loose last night , not yet this am, stool cdiff sent and pending. No reports of bleeding, stool giuac done and positive. Denies melena or BRBPR. Objective - Vital Signs/Intake and Output Vital Signs (last 24 hours): Temp Pulse Resp BP Pulse Ox 99.0 F 96 H 20 101/67 96 10/31/16 06:00 10/31/16 06:00 10/31/16 06:00 10/31/16 06:00 10/31/16 06:00 Intake and Output: 10/31/16 10/31/16 06:59 18:59 Intake Total 1740 240 Balance 1740 240 - Medications Medications: Current Medications Acetaminophen (Tylenol 325mg Tab) 650 mg PO Q4H PRN PRN Reason: Temperature Last Admin: 10/30/16 16:32 Dose: 650 mg Betamethasone/Clotrimazole (Lotrisone) 0 ml TOP BID [facility] Last Admin: 10/31/16 09:54 Dose: 1 applic Folic Acid (Folic Acid) 1 mg PO DAILY [facility] Last Admin: 10/31/16 09:54 Dose: 1 mg Cefepime HCl (Maxipime 1gm) 1 gm in 100 mls @ 100 mls/hr IVPB Q8 [facility] PRN Reason: Protocol Last Admin: 10/31/16 10:02 Dose: 100 mls/hr Lorazepam (Ativan) 1 mg IVP Q3 PRN; Protocol PRN Reason: Agitation Magnesium Oxide (Mag-Ox) 400 mg PO TID [facility] Last Admin: 10/31/16 09:54 Dose: 400 mg Multivitamins/Minerals (Therapeutic-M Tab) 1 tab PO 0800 [facility] Last Admin: 10/31/16 09:54 Dose: 1 tab Ondansetron HCl (Zofran Inj) 4 mg IVP Q4H PRN PRN Reason: Nausea/Vomiting Pantoprazole Sodium (Protonix Inj) 40 mg IVP DAILY [facility] Last Admin: 10/31/16 09:54 Dose: 40 mg Thiamine HCl (Vitamin B1 Tab) 100 mg PO DAILY [facility] Last Admin: 10/31/16 09:54 Dose: 100 mg Vancomycin HCl (Vancocin 25 Mg/Ml (Oral Use)) 125 mg PO QID [facility] PRN Reason: Protocol Last Admin: 10/31/16 10:03 Dose: 125 mg - Labs Labs: 10/31/16 06:46 10/31/16 06:46 PT 14.1 Seconds (9.9-11.8) H 10/24/16 06:40 INR 1.31 (0.93-1.08) H 10/24/16 06:40 APTT 28.6 Seconds (23.7-30.8) 10/21/16 08:25 - Constitutional Appears: No Acute Distress - Eye Exam Eye Exam: Normal appearance. absent: Scleral icterus - ENT Exam ENT Exam: Mucous Membranes Moist - Neck Exam Neck Exam: Normal Inspection - Respiratory Exam Respiratory Exam: NORMAL BREATHING PATTERN. absent: Respiratory Distress - Cardiovascular Exam Cardiovascular Exam: +S1, +S2 - GI/Abdominal Exam GI & Abdominal Exam: Distended, Soft, Tenderness (RUQ), Hernia (umbilical, non tender), Normal Bowel Sounds. absent: Guarding, Rebound - Extremities Exam Extremities Exam: Normal Capillary Refill, Pedal Edema. absent: Calf Tenderness - Neurological Exam Neurological Exam: Alert, Awake, Oriented x3 Assessment and Plan - Assessment and Plan (Free Text) Assessment: ASSESSMENT: Acute pancreatitis, lipase now normalized Liver Cirrhoisis secondary to ETOH Abdominal ascites, s/p large volume paracentesis, SAAG ratio 1.4 g/dl Portal HTN likely the cause of ascites, cytology fluid, negative for maliganant cells, had second paracentesis 10/29 S/P EGD:hypopharyngeal lesion noted, pt to follow up w. ENT out pt for bx Anxiety Anemia PLAN: Trend lipase clear liquid, if pain improves advance as tolerated Continue IV F Monitor I&O monitor H/H, transfuse as necessary on cefepime as per ID ID start on oral Vanco FU stool Cdiff monitor electrolytes elective out patient colonoscopy pt to follow up w. ENT out pt for bx continue GI prophylaxsis Seen and discussed w/ Dr. Herrera <Olman Herrera V - Last Filed: 11/02/16 08:49> Objective - Vital Signs/Intake and Output Vital Signs (last 24 hours): Temp Pulse Resp BP Pulse Ox 98 F 88 20 100/70 97 10/31/16 16:00 10/31/16 16:00 10/31/16 16:00 10/31/16 16:00 10/31/16 16:00 Intake and Output: 10/31/16 11/01/16 18:59 06:59 Intake Total 240 780 Balance 240 780 - Medications Medications: Current Medications Acetaminophen (Tylenol 325mg Tab) 650 mg PO Q4H PRN PRN Reason: Temperature Last Admin: 10/30/16 16:32 Dose: 650 mg Betamethasone/Clotrimazole (Lotrisone) 0 ml TOP BID [facility] Last Admin: 10/31/16 17:27 Dose: 1 applic Folic Acid (Folic Acid) 1 mg PO DAILY [facility] Last Admin: 10/31/16 09:54 Dose: 1 mg Cefepime HCl (Maxipime 1gm) 1 gm in 100 mls @ 100 mls/hr IVPB Q8 [facility] PRN Reason: Protocol Last Admin: 10/31/16 22:57 Dose: 100 mls/hr Lorazepam (Ativan) 1 mg IVP Q3 PRN; Protocol PRN Reason: Agitation Magnesium Oxide (Mag-Ox) 400 mg PO TID [facility] Last Admin: 10/31/16 17:27 Dose: 400 mg Multivitamins/Minerals (Therapeutic-M Tab) 1 tab PO 0800 [facility] Last Admin: 10/31/16 09:54 Dose: 1 tab Ondansetron HCl (Zofran Inj) 4 mg IVP Q4H PRN PRN Reason: Nausea/Vomiting Pantoprazole Sodium (Protonix Inj) 40 mg IVP DAILY [facility] Last Admin: 10/31/16 09:54 Dose: 40 mg Thiamine HCl (Vitamin B1 Tab) 100 mg PO DAILY [facility] Last Admin: 10/31/16 09:54 Dose: 100 mg Vancomycin HCl (Vancocin 25 Mg/Ml (Oral Use)) 125 mg PO QID [facility] PRN Reason: Protocol Last Admin: 10/31/16 22:57 Dose: 125 mg - Labs Labs: 10/31/16 06:46 10/31/16 06:46 PT 14.1 Seconds (9.9-11.8) H 10/24/16 06:40 INR 1.31 (0.93-1.08) H 10/24/16 06:40 APTT 28.6 Seconds (23.7-30.8) 10/21/16 08:25 Attending/Attestation - Attestation I have personally seen and examined this patient.: Yes I have fully participated in the care of the patient.: Yes I have reviewed all pertinent clinical information, including history, physical exam and plan: Yes Notes (Text): This is an addendum to GI progress report dictated by Jena Altman APN.The patient was seen and examined earlier. Medical records, lab studies, imagings were reviewed. Last 24 hours events reviewed. Agreed with the above treatment plan as outlined in Jena Altman APN's notes the with the addition of the following on examination abdomen is slightlyLess tender Acute pancreatitis ?etiology Decompensated cirrhosis Recommendations 10/31/16 18:19
--- NOTE | 2016-10-31 12:14 | CP.PCM.PN ---
Subjective - Date & Time of Evaluation Date of Evaluation: 10/31/16 Time of Evaluation: 10:55 - Subjective Subjective: Comfortable, not in distress, however developed fevers overnight. No abdominal pain, no nausea or vomiting, no SOB, no cough. Complaining of loose bowel movement. Objective - Vital Signs/Intake and Output Vital Signs (last 24 hours): Temp Pulse Resp BP Pulse Ox 98.0 F 115 H 20 106/50 L 96 10/30/16 20:00 10/30/16 16:30 10/30/16 16:30 10/30/16 16:30 10/30/16 16:30 Intake and Output: 10/31/16 10/31/16 06:59 18:59 Intake Total 1740 240 Balance 1740 240 - Medications Medications: Current Medications Acetaminophen (Tylenol 325mg Tab) 650 mg PO Q4H PRN PRN Reason: Temperature Last Admin: 10/30/16 16:32 Dose: 650 mg Betamethasone/Clotrimazole (Lotrisone) 0 ml TOP BID [facility] Last Admin: 10/30/16 17:18 Dose: 1 applic Folic Acid (Folic Acid) 1 mg PO DAILY [facility] Last Admin: 10/30/16 09:56 Dose: 1 mg Ceftriaxone Sodium (Rocephin 2 Gm Ivpb) 2 gm in 100 mls @ 100 mls/hr IVPB DAILY [facility] PRN Reason: Protocol Last Admin: 10/30/16 15:30 Dose: 100 mls/hr Lorazepam (Ativan) 1 mg IVP Q3 PRN; Protocol PRN Reason: Agitation Magnesium Oxide (Mag-Ox) 400 mg PO TID [facility] Last Admin: 10/30/16 17:18 Dose: 400 mg Multivitamins/Minerals (Therapeutic-M Tab) 1 tab PO 0800 [facility] Last Admin: 10/30/16 09:56 Dose: 1 tab Ondansetron HCl (Zofran Inj) 4 mg IVP Q4H PRN PRN Reason: Nausea/Vomiting Pantoprazole Sodium (Protonix Inj) 40 mg IVP DAILY [facility] Last Admin: 10/30/16 09:56 Dose: 40 mg Thiamine HCl (Vitamin B1 Tab) 100 mg PO DAILY [facility] Last Admin: 10/30/16 09:56 Dose: 100 mg - Labs Labs: 10/31/16 06:46 10/31/16 06:46 PT 14.1 Seconds (9.9-11.8) H 10/24/16 06:40 INR 1.31 (0.93-1.08) H 10/24/16 06:40 APTT 28.6 Seconds (23.7-30.8) 10/21/16 08:25 - Constitutional Appears: Non-toxic, No Acute Distress - Head Exam Head Exam: NORMAL INSPECTION - ENT Exam ENT Exam: Mucous Membranes Moist - Neck Exam Neck Exam: absent: Meningismus - Respiratory Exam Respiratory Exam: Decreased Breath Sounds - Cardiovascular Exam Cardiovascular Exam: +S1, +S2 - GI/Abdominal Exam GI & Abdominal Exam: Soft. absent: Tenderness Assessment and Plan - Assessment and Plan (Free Text) Plan: Assessment New onset systemic inflammatory response syndrome, R/O sepsis, R/O C. diff. associated diarrhea Right malar area erythematous lesion, R/O allergic reaction, R/O fungal disease - no vesicles, no blisters - not herpes-zoster alcohol abuse liver cirrhosis with ascites S/P paracentesis depression anxiety Plan gave a dose of IV Vanco and started Cefepime; follow up blood and urine cx; CXR does not show pneumonia; follow up stool for C. diff. - started PO Vancomycin for now continue lotrisone cream over the right malar area ascitic fluid only has 100 WBC's - not SBP last year, hepatitis profile and HIV screen was negative will continue to monitor clinically
--- NOTE | 2016-10-31 17:01 | CP.PCM.PN ---
<YessiArnoldsburg - Last Filed: 10/31/16 19:53> Subjective - Date & Time of Evaluation Date of Evaluation: 10/31/16 Time of Evaluation: 08:58 - Subjective Subjective: This patient was seen and examined at the bedside the morning. The patient reports feeling exhausted however does feel a little better overall than yesterday. The patient also reports abdominal pain shes had over her hospital course. The patient reports one bowel movement since yesterday and denies any blood in it. The patient denies any chest pain, shortness of breath, cough, sore throat, or any other complaints. Objective - Vital Signs/Intake and Output Vital Signs (last 24 hours): Temp Pulse Resp BP Pulse Ox 99.0 F 96 H 20 101/67 96 10/31/16 06:00 10/31/16 06:00 10/31/16 06:00 10/31/16 06:00 10/31/16 06:00 Intake and Output: 10/31/16 10/31/16 06:59 18:59 Intake Total 1740 240 Balance 1740 240 - Medications Medications: Current Medications Acetaminophen (Tylenol 325mg Tab) 650 mg PO Q4H PRN PRN Reason: Temperature Last Admin: 10/30/16 16:32 Dose: 650 mg Betamethasone/Clotrimazole (Lotrisone) 0 ml TOP BID [facility] Last Admin: 10/31/16 09:54 Dose: 1 applic Folic Acid (Folic Acid) 1 mg PO DAILY [facility] Last Admin: 10/31/16 09:54 Dose: 1 mg Cefepime HCl (Maxipime 1gm) 1 gm in 100 mls @ 100 mls/hr IVPB Q8 [facility] PRN Reason: Protocol Last Admin: 10/31/16 13:25 Dose: 100 mls/hr Lorazepam (Ativan) 1 mg IVP Q3 PRN; Protocol PRN Reason: Agitation Magnesium Oxide (Mag-Ox) 400 mg PO TID [facility] Last Admin: 10/31/16 13:24 Dose: 400 mg Multivitamins/Minerals (Therapeutic-M Tab) 1 tab PO 0800 [facility] Last Admin: 10/31/16 09:54 Dose: 1 tab Ondansetron HCl (Zofran Inj) 4 mg IVP Q4H PRN PRN Reason: Nausea/Vomiting Pantoprazole Sodium (Protonix Inj) 40 mg IVP DAILY [facility] Last Admin: 10/31/16 09:54 Dose: 40 mg Thiamine HCl (Vitamin B1 Tab) 100 mg PO DAILY [facility] Last Admin: 10/31/16 09:54 Dose: 100 mg Vancomycin HCl (Vancocin 25 Mg/Ml (Oral Use)) 125 mg PO QID [facility] PRN Reason: Protocol Last Admin: 10/31/16 13:24 Dose: 125 mg - Labs Labs: 10/31/16 06:46 10/31/16 06:46 PT 14.1 Seconds (9.9-11.8) H 10/24/16 06:40 INR 1.31 (0.93-1.08) H 10/24/16 06:40 APTT 28.6 Seconds (23.7-30.8) 10/21/16 08:25 - Head Exam Head Exam: ATRAUMATIC, NORMAL INSPECTION, NORMOCEPHALIC - Eye Exam Eye Exam: EOMI, Normal appearance, PERRL. absent: Periorbital tenderness Pupil Exam: NORMAL ACCOMODATION, PERRL - ENT Exam ENT Exam: Mucous Membranes Moist - Neck Exam Neck Exam: Normal Inspection. absent: Thyromegaly - Respiratory Exam Respiratory Exam: Clear to Ausculation Bilateral, NORMAL BREATHING PATTERN. absent: Accessory Muscle Use, Chest Wall Tenderness, Rhonchi, Respiratory Distress - Cardiovascular Exam Cardiovascular Exam: REGULAR RHYTHM, RRR, +S1, +S2. absent: Gallop, Rubs - GI/Abdominal Exam GI & Abdominal Exam: Firm, Guarding, Rigid, Tenderness, Normal Bowel Sounds. absent: Soft - Extremities Exam Extremities Exam: Full ROM. absent: Joint Swelling - Back Exam Back Exam: NORMAL INSPECTION. absent: paraspinal tenderness - Neurological Exam Neurological Exam: Alert, CN II-XII Intact - Psychiatric Exam Psychiatric exam: Normal Affect, Normal Mood - Skin Skin Exam: Dry, Intact Assessment and Plan - Assessment and Plan (Free Text) Assessment: This is a 51 yr. old female with past medical history of liver cirrhosis, etoh abuse who presents with dysphagia and abdominal swelling for 6 weeks. Plan: 1. Ascites 2/2 cirrhosis vs. SBP -Patient admitted and underwent a Therapeutic and Diagnostic Paracentesis s/p Day#1 -Ascitic fluid cx will be sent. follow up with rec's. -MELD Score of 9( has a 1.9% risk of mortality) -[facility] 1.4 g/dL. Portal hypertension likely the cause of ascites. - GI consult ordered appreciated -ID consult rec's appreciated. -Abdomen/pelvis CT:showed Cirrhosis, Moderate ascites, Possible enteritis/ colitis, and Mild cystitis. -Pending tap results. Will f/u tomorrow. -IR completed second tap. -Strict I'S and O's. 2. Leukocytosis -WBC (6) today. Resolved. Rocephin d/c'ed. -Will follow up tomorrow with cbc. 3. C.Diff infection -stool sample positive. Rocephin d/c'ed. Vancomycin started. Will monitor closely. -ID consult appreciated. 4. Dysphagia -Currently on regular diet and 1500ml fluid restriction. Patient will be monitored closely. 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 Scheduled an appointment for next Thursday with Dr. Newman to follow up with CT findings. Discussed with patient the appointment and necessary steps going forward. 5. Anemia - Hgb:8.1. Patient was Type and Cross-matched. Continue to closely monitor. - Monitor H/H - Transfuse Hgb if under 7 - OP colonoscopy recommended. 6. Abnormal electrolytes - Calcium gluconate & potassium chloride given to replete hypocalcemia & hypokalemia -Continue to monitor with serial CMP's. Will replete as needed. 7. Alcohol abuse/Withdrawal - urine alcohol & drug screen - counseled on EtOH cessation -Monitor for withdrawal symptoms. -Continue CIWA protocol, Seizure protocol, Fall Protocols ordered. 8. Shingles vs. bacterial infection -currently not complaining of pain and rash clinically looks better. -Will monitor closely. GI & DVT PPX - Continue Protonix - Continue SCDs <Rob VELASQUEZ,Aden - Last Filed: 11/01/16 11:20> Objective - Vital Signs/Intake and Output Vital Signs (last 24 hours): Temp Pulse Resp BP Pulse Ox 97.9 F 72 18 102/73 94 L 11/01/16 08:26 11/01/16 08:26 11/01/16 08:26 11/01/16 08:26 11/01/16 08:26 Intake and Output: 11/01/16 11/01/16 06:59 18:59 Intake Total 780 240 Balance 780 240 - Medications Medications: Current Medications Acetaminophen (Tylenol 325mg Tab) 650 mg PO Q4H PRN PRN Reason: Temperature Last Admin: 10/30/16 16:32 Dose: 650 mg Betamethasone/Clotrimazole (Lotrisone) 0 ml TOP BID [facility] Last Admin: 11/01/16 09:34 Dose: 1 applic Folic Acid (Folic Acid) 1 mg PO DAILY [facility] Last Admin: 11/01/16 09:33 Dose: 1 mg Lorazepam (Ativan) 1 mg IVP Q3 PRN; Protocol PRN Reason: Agitation Magnesium Oxide (Mag-Ox) 400 mg PO TID [facility] Last Admin: 11/01/16 09:33 Dose: 400 mg Multivitamins/Minerals (Therapeutic-M Tab) 1 tab PO 0800 [facility] Last Admin: 11/01/16 08:21 Dose: 1 tab Ondansetron HCl (Zofran Inj) 4 mg IVP Q4H PRN PRN Reason: Nausea/Vomiting Pantoprazole Sodium (Protonix Ec Tab) 40 mg PO 0600 [facility] Thiamine HCl (Vitamin B1 Tab) 100 mg PO DAILY [facility] Last Admin: 11/01/16 09:33 Dose: 100 mg Vancomycin HCl (Vancocin 25 Mg/Ml (Oral Use)) 125 mg PO QID [facility] PRN Reason: Protocol Last Admin: 11/01/16 09:33 Dose: 125 mg - Labs Labs: 10/31/16 06:46 10/31/16 06:46 PT 14.1 Seconds (9.9-11.8) H 10/24/16 06:40 INR 1.31 (0.93-1.08) H 10/24/16 06:40 APTT 28.6 Seconds (23.7-30.8) 10/21/16 08:25 Attending/Attestation - Attestation I have personally seen and examined this patient.: Yes I have fully participated in the care of the patient.: Yes I have reviewed all pertinent clinical information, including history, physical exam and plan: Yes Notes (Text): 11/01/16 11:17 Patient was seen and examined with emergency medicine medical director. Agreed with resident assessment and plan. a 51 yo Female with significant PMH for alcohol abuse and cirrhosis, was admitted with f dysphagia and abdominal swelling that has become progressively worse, was found to have ascites. She is status post ascites tap X 2; 4.3 L removed first time and 2 L of fluid was removed second time.. 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 Fluid studies were negative for SBP first time.Cultures are negative, does has elevated lipase in ascitic fluid , could be due to Pancreatitis. l.Repeat CT scan of abdomen and Pelvis showed Acute Pancreatitis, will hydrate patient, will hold of diuretics.Patient is on IV cefepime as per ID.She was having diarrhea and hand stool studies are positive for C diff colitis, has been started on oral vancomycin.Patient pain is better today, diarrhea is improving. 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 Thrombocytopenia is due to chronic liver disease. Management plan was discussed in detail with patient Education was provided.
[2016-11-01] MEDS: Cefepime 1gm in NS 100ml 1 GM/100 ML BAG IVPB SCH (06:10)
[2016-11-01] MEDS: Multivitamin With Minerals Tab PO SCH (08:21)
[2016-11-01] MEDS: Vancomycin 25 MG/ML PO SCH ×4 (09:33→22:28)
[2016-11-01] MEDS: Magnesium Oxide 400 mg Tab UD PO SCH ×3 (09:33→18:02)
[2016-11-01] MEDS: Clotrimazole/Betamethasone Lotion(30 ml) TOP SCH ×2 (09:34→18:06)
--- NOTE | 2016-11-01 09:45 | PN ---
DATE: 11/01/2016 SUBJECTIVE: The patient is in bed, in no acute distress, nontoxic. The patient was seen earlier in #[id number], bed #2. PHYSICAL EXAMINATION: VITAL SIGNS: Temperature is 97, blood pressures is 102/70, respiratory rate of 18. HEENT: Unremarkable. NECK: Supple. LUNGS: Decreased breath sounds. HEART: Normal S1 and S2. ABDOMINAL EXAMINATION: Soft and nontender. LABORATORY EXAMINATION: Reveals a white count of 6, hemoglobin of 8, platelets of 96. Chemistries reveal a BUN of 7, creatinine of 0.7. Procalcitonin is 0.15. Urinalysis is noted. Peritoneal fluid, WBCs are noted. Microbiology is reviewed and cultures are negative. REVIEW OF ORDERS: Reveals the patient to be on p.o. vancomycin. Stool for C. diff is reported to be positive antigen and positive toxin. ASSESSMENT AND PLAN: A 51-year-old with new onset of systemic inflammatory response syndrome with sepsis with pseudomembranous colitis with a right malar area erythematous lesion and liver cirrhosis, ascites, status post paracentesis, depression, anxiety. On p.o. vancomycin, would complete 10-14 days and we will discontinue the Maxipime since the urinalysis is negative, the blood and urine cultures are negative, ascitic fluid cultures are negative and the patient had a chest x-ray and the lungs are clear. Complete 10-14 days of p.o. vancomycin. Yunior Hdz MD
--- NOTE | 2016-11-01 13:59 | CP.PCM.PN ---
<Ger Dickson - Last Filed: 11/01/16 16:42> Subjective - Date & Time of Evaluation Date of Evaluation: 11/01/16 Time of Evaluation: 09:56 - Subjective Subjective: Patient was seen and examined at bedside this morning. The patient reports the stomach pain feeling better than yesterday. The patient was placed on contact precautions from her C.Diff infection. She denies any chest pain, nausea, vomiting, lightheaded, dizziness, changes in vision, dysuria, numbness or tingling in the hands and feet, or any other complaints. Objective - Vital Signs/Intake and Output Vital Signs (last 24 hours): Temp Pulse Resp BP Pulse Ox 97.9 F 72 18 102/73 94 L 11/01/16 08:26 11/01/16 08:26 11/01/16 08:26 11/01/16 08:26 11/01/16 08:26 Intake and Output: 11/01/16 11/01/16 06:59 18:59 Intake Total 780 240 Balance 780 240 - Medications Medications: Current Medications Acetaminophen (Tylenol 325mg Tab) 650 mg PO Q4H PRN PRN Reason: Temperature Last Admin: 10/30/16 16:32 Dose: 650 mg Betamethasone/Clotrimazole (Lotrisone) 0 ml TOP BID [facility] Last Admin: 11/01/16 09:34 Dose: 1 applic Folic Acid (Folic Acid) 1 mg PO DAILY [facility] Last Admin: 11/01/16 09:33 Dose: 1 mg Lorazepam (Ativan) 1 mg IVP Q3 PRN; Protocol PRN Reason: Agitation Magnesium Oxide (Mag-Ox) 400 mg PO TID [facility] Last Admin: 11/01/16 09:33 Dose: 400 mg Multivitamins/Minerals (Therapeutic-M Tab) 1 tab PO 0800 [facility] Last Admin: 11/01/16 08:21 Dose: 1 tab Ondansetron HCl (Zofran Inj) 4 mg IVP Q4H PRN PRN Reason: Nausea/Vomiting Pantoprazole Sodium (Protonix Ec Tab) 40 mg PO 0600 [facility] Thiamine HCl (Vitamin B1 Tab) 100 mg PO DAILY [facility] Last Admin: 11/01/16 09:33 Dose: 100 mg Vancomycin HCl (Vancocin 25 Mg/Ml (Oral Use)) 125 mg PO QID [facility] PRN Reason: Protocol Last Admin: 11/01/16 09:33 Dose: 125 mg - Labs Labs: 10/31/16 06:46 10/31/16 06:46 PT 14.1 Seconds (9.9-11.8) H 10/24/16 06:40 INR 1.31 (0.93-1.08) H 10/24/16 06:40 APTT 28.6 Seconds (23.7-30.8) 10/21/16 08:25 - Head Exam Head Exam: ATRAUMATIC, NORMAL INSPECTION, NORMOCEPHALIC - Eye Exam Eye Exam: EOMI, Normal appearance, PERRL Pupil Exam: NORMAL ACCOMODATION, PERRL. absent: Irregular - ENT Exam ENT Exam: Mucous Membranes Moist - Neck Exam Neck Exam: Normal Inspection. absent: Thyromegaly - Respiratory Exam Respiratory Exam: Clear to Ausculation Bilateral, NORMAL BREATHING PATTERN. absent: Accessory Muscle Use, Chest Wall Tenderness - Cardiovascular Exam Cardiovascular Exam: REGULAR RHYTHM, RRR, +S1, +S2. absent: Gallop, Rubs - GI/Abdominal Exam GI & Abdominal Exam: Tenderness, Normal Bowel Sounds. absent: Guarding, Rigid Additional comments: Decreased tenderness in the right and left lower quadrants than the previous day. - Extremities Exam Extremities Exam: Full ROM - Back Exam Back Exam: NORMAL INSPECTION. absent: paraspinal tenderness - Neurological Exam Neurological Exam: Alert, Awake, CN II-XII Intact - Psychiatric Exam Psychiatric exam: Normal Affect, Normal Mood - Skin Skin Exam: Dry, Intact Assessment and Plan - Assessment and Plan (Free Text) Assessment: This is a 51 yr. old female with past medical history of liver cirrhosis, etoh abuse who presents with dysphagia and abdominal swelling for 6 weeks. Plan: 1. Ascites 2/2 cirrhosis vs. SBP -Patient admitted and underwent a Therapeutic and Diagnostic Paracentesis s/p Day#1 -Ascitic fluid cx will be sent. follow up with rec's. -MELD Score of 9( has a 1.9% risk of mortality) -SAAG 1.4 g/dL. Portal hypertension likely the cause of ascites. - GI consult ordered appreciated -ID consult rec's appreciated. -Abdomen/pelvis CT:showed Cirrhosis, Moderate ascites, Possible enteritis/ colitis, and Mild cystitis. -Pending tap results. Will f/u tomorrow. -IR completed second tap. -Continue Strict I'S and O's. 2. Leukocytosis -WBC (6) today. Resolved. Rocephin d/c'ed. -Will follow up tomorrow with cbc. 3. C.Diff infection -stool sample positive. Rocephin d/c'ed. -Continue Vancomycin started. Will monitor closely. -ID consult appreciated. 4. Dysphagia -Currently on regular diet and 1500ml fluid restriction. Patient will be monitored closely. 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 Scheduled an appointment for next Thursday with Dr. Newman to follow up with CT findings. Discussed with patient the appointment and necessary steps going forward. 5. Anemia - Patient was Type and Cross-matched. Continue to closely monitor. - Monitor H/H - Transfuse Hgb if under 7 - OP colonoscopy recommended. 6. Abnormal electrolytes - Calcium gluconate & potassium chloride given to replete hypocalcemia & hypokalemia -Continue to monitor with serial CMP's. Will replete as needed. 7. Alcohol abuse/Withdrawal - urine alcohol & drug screen - counseled on EtOH cessation -Monitor for withdrawal symptoms. -Continue CIWA protocol, Seizure protocol, Fall Protocols ordered. 8. Shingles vs. bacterial infection -currently not complaining of pain and rash clinically looks better. -Will monitor closely. GI & DVT PPX - Continue Protonix - Continue SCDs <Rob VELASQUEZ,[facility] - Last Filed: 11/02/16 12:15> Objective - Vital Signs/Intake and Output Vital Signs (last 24 hours): Temp Pulse Resp BP Pulse Ox 98.3 F 85 18 93/61 L 95 11/02/16 08:13 11/02/16 08:13 11/02/16 08:13 11/02/16 08:13 11/02/16 08:13 Intake and Output: 11/02/16 11/02/16 06:59 18:59 Intake Total 420 Output Total 0 Balance 420 - Medications Medications: Current Medications Acetaminophen (Tylenol 325mg Tab) 650 mg PO Q4H PRN PRN Reason: Temperature Last Admin: 10/30/16 16:32 Dose: 650 mg Betamethasone/Clotrimazole (Lotrisone) 0 ml TOP BID [facility] Last Admin: 11/01/16 18:06 Dose: 1 applic Folic Acid (Folic Acid) 1 mg PO DAILY [facility] Last Admin: 11/02/16 09:18 Dose: 1 mg Lorazepam (Ativan) 1 mg IVP Q3 PRN; Protocol PRN Reason: Agitation Magnesium Oxide (Mag-Ox) 400 mg PO TID [facility] Last Admin: 11/02/16 09:18 Dose: 400 mg Multivitamins/Minerals (Therapeutic-M Tab) 1 tab PO 0800 [facility] Last Admin: 11/02/16 09:18 Dose: 1 tab Ondansetron HCl (Zofran Inj) 4 mg IVP Q4H PRN PRN Reason: Nausea/Vomiting Pantoprazole Sodium (Protonix Ec Tab) 40 mg PO 0600 [facility] Thiamine HCl (Vitamin B1 Tab) 100 mg PO DAILY [facility] Last Admin: 11/02/16 09:18 Dose: 100 mg Vancomycin HCl (Vancocin 25 Mg/Ml (Oral Use)) 125 mg PO QID [facility] PRN Reason: Protocol Last Admin: 11/02/16 09:19 Dose: 125 mg - Labs Labs: 11/02/16 10:49 11/02/16 10:49 PT 14.1 Seconds (9.9-11.8) H 10/24/16 06:40 INR 1.31 (0.93-1.08) H 10/24/16 06:40 APTT 28.6 Seconds (23.7-30.8) 10/21/16 08:25 Attending/Attestation - Attestation I have personally seen and examined this patient.: Yes I have fully participated in the care of the patient.: Yes I have reviewed all pertinent clinical information, including history, physical exam and plan: Yes Notes (Text): 11/02/16 12:13 Patient was seen and examined with medical insurance coder. Agreed with resident assessment and plan. 51 yo Female with PMH for alcohol abuse and cirrhosis, was admitted with dysphagia and abdominal swelling, was found to have ascites. She is status post ascites tap X 2 ; 4.3 L removed first time and 2 L of fluid was removed second time.. 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 Fluid studies were negative for SBP first time.Cultures are negative, does has elevated lipase in ascitic fluid, could be due to Pancreatitis. Repeat CT scan of abdomen and Pelvis showed Acute Pancreatitis, She was having diarrhea and hand stool studies are positive for C diff colitis, has been started on oral vancomycin.Patient pain is better today, diarrhea is improving. She was also treated with IV cefepime as she was having fever and abdominal wall tenderness, this has been discontinue dtoday by ID.Patient diuretic are on hold, will restart in 24 hour. 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 Thrombocytopenia is due to chronic liver disease.Platelet count is stable.There is no evidence of bleeding. Management plan was discussed in detail with patient Education was provided.
[2016-11-01 17:38] LABS: BASO # 0.02 K/mm3 (0.0-2.0); BASO % 0.4 % (0.0-3.0); EOS # 0.1 (0.0-0.7); EOS % 1.2 % (1.5-5.0); GRAN # 4.59 (1.4-6.5); GRAN % 81.8 % (50.0-68.0); HEMATOCRIT 30.4 % (36.0-48.0); LYMPH # 0.5 (1.2-3.4); MEAN CELL VOLUME 88.6 fl (80.0-105.0); MEAN CORPUSCULAR HEMOGLOBIN 26.8 pg (25.0-35.0); MEAN CORPUSCULAR HGB CONC 30.3 g/dl (31.0-37.0); MEAN PLATELET VOLUME 11.4 fl (7.0-11.0); MONO # 0.5 (0.1-0.6); MONO % 8.6 % (1.0-6.0); RED CELL DISTRIBUTION WIDTH 16.6 % (11.5-14.5); WHITE BLOOD COUNT 5.6 10^3/ul (4.5-11.0)
[2016-11-01 17:49] LABS: ALB/GLOB RATIO 0.7 (1.1-1.8); ALKALINE PHOSPHATASE 70 U/L (38-126); ALT/SGPT 29 U/L (7-56); AST/SGOT 28 U/L (14-36); BILIRUBIN,TOTAL 0.3 mg/dL (0.2-1.3); BLOOD UREA NITROGEN 8 mg/dL (7-21); CALCIUM 7.8 mg/dL (8.4-10.5); CARBON DIOXIDE 29 mmol/L (21-33); CHLORIDE 106 mmol/L (98-107); GFR AFRICAN-AMERICAN > 60; GLUCOSE,RANDOM 96 mg/dL (70-110); POTASSIUM 4.5 mmol/L (3.6-5.0); SODIUM 140 mmol/L (132-148); TOTAL PROTEIN 5.4 g/dL (5.8-8.3)
--- NOTE | 2016-11-02 06:52 | PN ---
DATE: 11/01/2016 SUBJECTIVE: This patient was seen and evaluated earlier today. The patient appears more comfortable now. PHYSICAL EXAMINATION: VITAL SIGNS: On examination, is afebrile, blood pressure 102/70, respirations 18. HEENT: Non-jaundiced. NECK: Supple. HEART: S1 and S2 heard. LUNGS: Bilateral air entry present, slightly reduced in the base. ABDOMEN: Soft. There was diffuse tenderness present mainly in the epigastric area and left upper quadrant area. No rebound or guarding. EXTREMITIES: Mild edema present. NEUROLOGICALLY: Alert and oriented. Moves all the extremities. LABORATORY DATA: Hemoglobin 9.2, hematocrit 30.4. WBC 5.6, platelets 130. LFTs essentially unremarkable. IMPRESSION AND PLAN: This 51-year-old patient with decompensated cirrhosis of the liver, the patient has a hypopharyngeal lesion, has dysphagia, now has pancreatitis, clinically slowly improving. The patient has large ascites, status post paracentesis done before. Patient was on antibiotics. The etiology of the pancreatitis is unclear. No gallstones. The patient has Clostridium difficile colitis. She is on p.o. vancomycin. We will continue the p.o. vancomycin. Off other antibiotics now. Slowly, the patient has been started on hepatic diet, soft diet. We will continue to closely follow up her care. Need ENT followup Thank you very much for allowing us to participate in the care of this patient. Olman Herrera MD [employer]
[2016-11-02] MEDS: Multivitamin With Minerals Tab PO SCH (09:18)
[2016-11-02] MEDS: Magnesium Oxide 400 mg Tab UD PO SCH ×3 (09:18→18:29)
[2016-11-02] MEDS: Vancomycin 25 MG/ML PO SCH ×4 (09:19→22:15)
[2016-11-02 10:54] LABS: BASO # 0.02 K/mm3 (0.0-2.0); BASO % 0.3 % (0.0-3.0); EOS # 0.1 (0.0-0.7); EOS % 1.1 % (1.5-5.0); GRAN # 5.09 (1.4-6.5); GRAN % 82.5 % (50.0-68.0); HEMATOCRIT 31.7 % (36.0-48.0); LYMPH # 0.4 (1.2-3.4); MEAN CELL VOLUME 88.5 fl (80.0-105.0); MEAN CORPUSCULAR HEMOGLOBIN 26.8 pg (25.0-35.0); MEAN CORPUSCULAR HGB CONC 30.3 g/dl (31.0-37.0); MEAN PLATELET VOLUME 11.3 fl (7.0-11.0); MONO # 0.6 (0.1-0.6); MONO % 9.1 % (1.0-6.0); RED CELL DISTRIBUTION WIDTH 16.7 % (11.5-14.5); WHITE BLOOD COUNT 6.2 10^3/ul (4.5-11.0)
[2016-11-02 11:28] LABS: ALB/GLOB RATIO 0.8 (1.1-1.8); ALKALINE PHOSPHATASE 76 U/L (38-126); ALT/SGPT 27 U/L (7-56); AST/SGOT 29 U/L (14-36); BILIRUBIN,TOTAL 0.3 mg/dL (0.2-1.3); BLOOD UREA NITROGEN 10 mg/dL (7-21); CARBON DIOXIDE 27 mmol/L (21-33); CHLORIDE 105 mmol/L (98-107); GFR AFRICAN-AMERICAN > 60; GLUCOSE,RANDOM 99 mg/dL (70-110); POTASSIUM 4.2 mmol/L (3.6-5.0); SODIUM 139 mmol/L (132-148); TOTAL PROTEIN 5.8 g/dL (5.8-8.3)
--- NOTE | 2016-11-02 11:39 | PN ---
DATE: 11/02/2016 SUBJECTIVE: The patient is in bed, in no acute distress. PHYSICAL EXAMINATION: VITAL SIGNS: Temperature is 98, blood pressure is 93/60, respiratory rate of 20. HEENT: Unremarkable. NECK: Supple. LUNGS: Decreased breath sounds. HEART EXAM: Normal S1 and S2. ABDOMINAL EXAMINATION: Soft and nontender. LABORATORY EXAMINATION: Reveals a white count of 5.6, hemoglobin of 9, platelets of 130. Chemistries reveal a BUN Of 8, creatinine of 0.7. Urinalysis is noted. Blood cultures, no growth. Stool for C. diff is positive. REVIEW OF ORDERS: Reveals the patient to be on p.o. vancomycin. ASSESSMENT AND PLAN: This is a 51-year-old female with new onset of systemic inflammatory response syndrome and sepsis with pseudomembranous colitis and right malar area erythematous lesion, liver cirrhosis, ascites, status post paracentesis and history of depression, anxiety. Currently, on p.o. vancomycin, would complete 10 to 14 days of p.o. vancomycin for pseudomembranous colitis. Yunior Hdz MD
--- NOTE | 2016-11-02 12:54 | CP.PCM.PN ---
<YessiSherifn - Last Filed: 11/02/16 13:02> Subjective - Date & Time of Evaluation Date of Evaluation: 11/02/16 Time of Evaluation: 07:51 - Subjective Subjective: Patient was seen and examined at bedside this morning. The patient reports one episode of diarrhea overnight. She denies any blood in the stool. The patient also reports diffuse abdominal pain. The patient remains on contact precautions for her C.dIFF infection. The patient denies any chest pain, dizziness, changes in vision, numbness or tingling in her hands or feet, shortness of breath, or any other complaints. Objective - Vital Signs/Intake and Output Vital Signs (last 24 hours): Temp Pulse Resp BP Pulse Ox 98.3 F 85 18 93/61 L 95 11/02/16 08:13 11/02/16 08:13 11/02/16 08:13 11/02/16 08:13 11/02/16 08:13 Intake and Output: 11/02/16 11/02/16 06:59 18:59 Intake Total 420 Output Total 0 Balance 420 - Medications Medications: Current Medications Acetaminophen (Tylenol 325mg Tab) 650 mg PO Q4H PRN PRN Reason: Temperature Last Admin: 10/30/16 16:32 Dose: 650 mg Betamethasone/Clotrimazole (Lotrisone) 0 ml TOP BID [facility] Last Admin: 11/01/16 18:06 Dose: 1 applic Folic Acid (Folic Acid) 1 mg PO DAILY [facility] Last Admin: 11/02/16 09:18 Dose: 1 mg Lorazepam (Ativan) 1 mg IVP Q3 PRN; Protocol PRN Reason: Agitation Magnesium Oxide (Mag-Ox) 400 mg PO TID [facility] Last Admin: 11/02/16 09:18 Dose: 400 mg Multivitamins/Minerals (Therapeutic-M Tab) 1 tab PO 0800 [facility] Last Admin: 11/02/16 09:18 Dose: 1 tab Ondansetron HCl (Zofran Inj) 4 mg IVP Q4H PRN PRN Reason: Nausea/Vomiting Pantoprazole Sodium (Protonix Ec Tab) 40 mg PO 0600 [facility] Thiamine HCl (Vitamin B1 Tab) 100 mg PO DAILY [facility] Last Admin: 11/02/16 09:18 Dose: 100 mg Vancomycin HCl (Vancocin 25 Mg/Ml (Oral Use)) 125 mg PO QID [facility] PRN Reason: Protocol Last Admin: 11/02/16 09:19 Dose: 125 mg - Labs Labs: 11/02/16 10:49 11/02/16 10:49 PT 14.1 Seconds (9.9-11.8) H 10/24/16 06:40 INR 1.31 (0.93-1.08) H 10/24/16 06:40 APTT 28.6 Seconds (23.7-30.8) 10/21/16 08:25 - Constitutional Appears: Well, Older Than Stated Age - Head Exam Head Exam: ATRAUMATIC, NORMAL INSPECTION, NORMOCEPHALIC - Eye Exam Eye Exam: EOMI, Normal appearance, PERRL. absent: Periorbital tenderness Pupil Exam: NORMAL ACCOMODATION, PERRL. absent: Irregular, Miosis - ENT Exam ENT Exam: Mucous Membranes Moist. absent: Normal Oropharynx - Neck Exam Neck Exam: Full ROM, Normal Inspection. absent: Lymphadenopathy, Thyromegaly - Respiratory Exam Respiratory Exam: Clear to Ausculation Bilateral, NORMAL BREATHING PATTERN. absent: Accessory Muscle Use, Chest Wall Tenderness, Respiratory Distress - Cardiovascular Exam Cardiovascular Exam: REGULAR RHYTHM, +S1, +S2. absent: Gallop, Rubs - GI/Abdominal Exam GI & Abdominal Exam: Soft, Tenderness, Hernia, Normal Bowel Sounds - Back Exam Back Exam: NORMAL INSPECTION. absent: paraspinal tenderness - Neurological Exam Neurological Exam: Alert, Awake, CN II-XII Intact, Oriented x3 - Psychiatric Exam Psychiatric exam: Normal Affect, Normal Mood - Skin Skin Exam: Dry, Intact Assessment and Plan - Assessment and Plan (Free Text) Assessment: This is a 51 yr. old female with past medical history of liver cirrhosis, etoh abuse who presents with dysphagia and abdominal swelling for 6 weeks. Plan: 1. Ascites 2/2 cirrhosis vs. SBP -Patient admitted and underwent a Therapeutic and Diagnostic Paracentesis s/p Day#1 -Ascitic fluid cx will be sent. follow up with rec's. -MELD Score of 9( has a 1.9% risk of mortality) -SAAG 1.4 g/dL. Portal hypertension likely the cause of ascites. - GI consult ordered appreciated -ID consult rec's appreciated. -Abdomen/pelvis CT:showed Cirrhosis, Moderate ascites, Possible enteritis/ colitis, and Mild cystitis. -Pending tap results. Will f/u tomorrow. -IR completed second tap. -Continue Strict I'S and O's. 2. Leukocytosis -WBC (6.2) today. Resolved. Rocephin d/c'ed. -Will follow up tomorrow with cbc. 3. C.Diff infection -stool sample positive. Rocephin d/c'ed. -Continue Vancomycin started. Will monitor closely. -ID consult appreciated. 4. Dysphagia -Currently on regular diet and 1500ml fluid restriction. Patient will be monitored closely. 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 Scheduled an appointment for next Thursday with Dr. Newman to follow up with CT findings. Discussed with patient the appointment and necessary steps going forward. 5. Anemia - Patient was Type and Cross-matched. Continue to closely monitor. - Monitor H/H - Transfuse Hgb if under 7 - OP colonoscopy recommended. 6. Abnormal electrolytes - Calcium gluconate & potassium chloride given to replete hypocalcemia & hypokalemia -Continue to monitor with serial CMP's. Will replete as needed. 7. Alcohol abuse/Withdrawal - urine alcohol & drug screen - counseled on EtOH cessation -Monitor for withdrawal symptoms. -Continue CIWA protocol, Seizure protocol, Fall Protocols ordered. -PT eval ordered. Will f/u rec's tomorrow. Possible D/C pending results. 8. Shingles vs. bacterial infection -currently not complaining of pain and rash clinically looks better. -Will monitor closely. GI & DVT PPX - Continue Protonix - Continue SCDs <Rob VELASQUEZ,[facility] - Last Filed: 11/10/16 13:57> Objective - Vital Signs/Intake and Output Vital Signs (last 24 hours): Temp Pulse Resp BP Pulse Ox 98.9 F 80 20 100/58 L 98 11/04/16 16:00 11/04/16 16:00 11/04/16 16:00 11/04/16 16:00 11/04/16 16:00 - Labs Labs: 11/04/16 14:05 11/04/16 08:07 PT 14.1 Seconds (9.9-11.8) H 10/24/16 06:40 INR 1.31 (0.93-1.08) H 10/24/16 06:40 APTT 28.6 Seconds (23.7-30.8) 10/21/16 08:25 Attending/Attestation - Attestation I have personally seen and examined this patient.: Yes I have fully participated in the care of the patient.: Yes I have reviewed all pertinent clinical information, including history, physical exam and plan: Yes Notes (Text): 11/10/16 13:56 Patient was seen and examined with bilingual medical assistant. Agreed with resident assessment and plan. 51 Female with significant PMH for alcohol abuse and cirrhosis, was admitted with dysphagia and abdominal swelling , was found to have ascites. She is status post ascites tap X 2; 4.3 L removed first time and 2 L of fluid was removed second time.. 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 Fluid studies were negative for SBP first time. Cultures are negative, does has elevated lipase in ascitic fluid, could be due to Pancreatitis. Repeat CT scan of abdomen and Pelvis showed Acute Pancreatitis, .She was having diarrhea and hand stool studies are positive for C diff colitis, has been started on oral vancomycin. Patient pain is better today, diarrhea is improved, off cefepime.will restart diuretics. Dysphagia; and anemia, EGD and CT scan of soft tissue showed possible pharyngeal cancer, Patient was evaluated by ENT, outpatient biopsy has been recommended.This was discussed in detail with the patient. Management plan was discussed in detail with patient Education was provided.
[2016-11-02] MEDS: Clotrimazole/Betamethasone Lotion(30 ml) TOP SCH ×2 (14:18→18:28)
--- NOTE | 2016-11-03 03:54 | PN ---
DATE: SUBJECTIVE: The patient is tolerating the diet. The patient has some discomfort in the epigastric and left upper quadrant area. PHYSICAL EXAMINATION VITAL SIGNS: Temperature is 99.1, pulse 98, and blood pressure 97/67. HEENT: Atraumatic and anicteric. NECK: Supple. HEART: S1 and S2 heard. LUNGS: Bilateral air entry present. ABDOMEN: Soft and distended. There is mild tenderness at the epigastric and left upper quadrant area. There is no rebound or guarding. EXTREMITIES: No cyanosis or clubbing. LABORATORY DATA: Hemoglobin 9.6, hematocrit 31.7, WBC 6.7, platelets 127, BUN 10, creatinine 0.6. IMPRESSION AND PLAN: 1. This 51-year-old patient with a decompensated cirrhosis, who was admitted with severe anemia, hemoglobin was 6.7, status post transfusion. stable. The patient an endoscopy. 2. He has history dysphagia, EGD showed hypopharyngeal lesion. 3. Pancreatitis, etiology is unclear. Clinically is improving. 4. History of Clostridium difficile colitis. The patient is on p.o. vancomycin. We will continue. Thank you very much for allowing us to participate in the care of this patient. Olman Herrera MD
[2016-11-03] MEDS: Pantoprazole 40 mg EC Tab PO SCH (05:41)
[2016-11-03 08:40] LABS: BASO # 0.02 K/mm3 (0.0-2.0); BASO % 0.4 % (0.0-3.0); EOS # 0.1 (0.0-0.7); EOS % 1.1 % (1.5-5.0); GRAN # 4.27 (1.4-6.5); GRAN % 77.2 % (50.0-68.0); HEMATOCRIT 33.8 % (36.0-48.0); LYMPH # 0.6 (1.2-3.4); LYMPH % 9.9 % (22.0-35.0); MEAN CELL VOLUME 88.3 fl (80.0-105.0); MEAN CORPUSCULAR HEMOGLOBIN 26.9 pg (25.0-35.0); MEAN CORPUSCULAR HGB CONC 30.5 g/dl (31.0-37.0); MEAN PLATELET VOLUME 11.6 fl (7.0-11.0); MONO # 0.6 (0.1-0.6); MONO % 11.4 % (1.0-6.0); RED CELL DISTRIBUTION WIDTH 16.9 % (11.5-14.5); WHITE BLOOD COUNT 5.5 10^3/ul (4.5-11.0)
[2016-11-03 08:52] LABS: ALB/GLOB RATIO 0.8 (1.1-1.8); ALKALINE PHOSPHATASE 82 U/L (38-126); ALT/SGPT 30 U/L (7-56); AST/SGOT 31 U/L (14-36); BILIRUBIN,TOTAL 0.4 mg/dL (0.2-1.3); BLOOD UREA NITROGEN 9 mg/dL (7-21); CALCIUM 8.2 mg/dL (8.4-10.5); CARBON DIOXIDE 26 mmol/L (21-33); CHLORIDE 107 mmol/L (98-107); GFR AFRICAN-AMERICAN > 60; GLUCOSE,RANDOM 92 mg/dL (70-110); POTASSIUM 4.3 mmol/L (3.6-5.0); SODIUM 140 mmol/L (132-148); TOTAL PROTEIN 6.2 g/dL (5.8-8.3)
[2016-11-03] MEDS: Vancomycin 25 MG/ML PO SCH ×4 (10:56→21:49)
[2016-11-03] MEDS: Magnesium Oxide 400 mg Tab UD PO SCH ×3 (10:56→18:12)
[2016-11-03] MEDS: Multivitamin With Minerals Tab PO SCH (10:56)
[2016-11-03] MEDS: Clotrimazole/Betamethasone Lotion(30 ml) TOP SCH ×2 (10:57→18:12)
--- NOTE | 2016-11-03 12:08 | CP.PCM.PN ---
<Shala Ang - Last Filed: 11/03/16 12:14> Subjective - Date & Time of Evaluation Date of Evaluation: 11/03/16 Time of Evaluation: 09:00 - Subjective Subjective: GI PROGRESS NOTE FOR DR. GUZMAN Patient seen and examined at bedside. She reports some mild abdominal pain. She is tolerating her diet. Objective - Vital Signs/Intake and Output Vital Signs (last 24 hours): Temp Pulse Resp BP Pulse Ox 98.8 F 86 18 93/63 L 100 11/03/16 08:23 11/03/16 08:23 11/03/16 08:23 11/03/16 08:23 11/03/16 08:23 Intake and Output: 11/03/16 11/03/16 06:59 18:59 Intake Total 120 Balance 120 - Medications Medications: Current Medications Acetaminophen (Tylenol 325mg Tab) 650 mg PO Q4H PRN PRN Reason: Temperature Last Admin: 10/30/16 16:32 Dose: 650 mg Betamethasone/Clotrimazole (Lotrisone) 0 ml TOP BID [facility] Last Admin: 11/03/16 10:57 Dose: 1 applic Folic Acid (Folic Acid) 1 mg PO DAILY [facility] Last Admin: 11/03/16 10:56 Dose: 1 mg Lorazepam (Ativan) 1 mg IVP Q3 PRN; Protocol PRN Reason: Agitation Magnesium Oxide (Mag-Ox) 400 mg PO TID [facility] Last Admin: 11/03/16 10:56 Dose: 400 mg Multivitamins/Minerals (Therapeutic-M Tab) 1 tab PO 0800 [facility] Last Admin: 11/03/16 10:56 Dose: 1 tab Ondansetron HCl (Zofran Inj) 4 mg IVP Q4H PRN PRN Reason: Nausea/Vomiting Pantoprazole Sodium (Protonix Ec Tab) 40 mg PO 0600 [facility] Last Admin: 11/03/16 05:41 Dose: 40 mg Thiamine HCl (Vitamin B1 Tab) 100 mg PO DAILY [facility] Last Admin: 11/03/16 10:56 Dose: 100 mg Vancomycin HCl (Vancocin 25 Mg/Ml (Oral Use)) 125 mg PO QID [facility] PRN Reason: Protocol Last Admin: 11/03/16 10:56 Dose: 125 mg - Labs Labs: 11/03/16 08:30 11/03/16 08:30 PT 14.1 Seconds (9.9-11.8) H 10/24/16 06:40 INR 1.31 (0.93-1.08) H 10/24/16 06:40 APTT 28.6 Seconds (23.7-30.8) 10/21/16 08:25 - Constitutional Appears: Non-toxic, No Acute Distress - Head Exam Head Exam: ATRAUMATIC, NORMAL INSPECTION - Respiratory Exam Respiratory Exam: NORMAL BREATHING PATTERN. absent: Respiratory Distress - Cardiovascular Exam Cardiovascular Exam: +S1, +S2 - GI/Abdominal Exam GI & Abdominal Exam: Distended, Soft, Tenderness (mild). absent: Guarding, Rebound - Neurological Exam Neurological Exam: Alert, Awake - Psychiatric Exam Psychiatric exam: Normal Affect, Normal Mood Assessment and Plan - Assessment and Plan (Free Text) Assessment: 51yo F with: - Decompensated cirrhosis with ascites s/p paracentesis on 10/29 - Hx of dysphagia, EGD showed hypopharyngeal lesion - Pancreatitis of unclear etiology, improving clinically - Hx of C diff colitis, on PO vanco - Tolerating diet - Discussed plan with Dr. Javier Ang PGY-3 <Olman Guzman V - Last Filed: 11/03/16 23:27> Objective - Vital Signs/Intake and Output Vital Signs (last 24 hours): Temp Pulse Resp BP Pulse Ox 97.8 F 90 20 100/60 99 11/03/16 16:00 11/03/16 16:00 11/03/16 16:00 11/03/16 16:00 11/03/16 16:00 Intake and Output: 11/03/16 11/04/16 18:59 06:59 Intake Total 900 Balance 900 - Medications Medications: Current Medications Acetaminophen (Tylenol 325mg Tab) 650 mg PO Q4H PRN PRN Reason: Temperature Last Admin: 10/30/16 16:32 Dose: 650 mg Betamethasone/Clotrimazole (Lotrisone) 0 ml TOP BID [facility] Last Admin: 11/03/16 18:12 Dose: 1 applic Folic Acid (Folic Acid) 1 mg PO DAILY [facility] Last Admin: 11/03/16 10:56 Dose: 1 mg Lorazepam (Ativan) 1 mg IVP Q3 PRN; Protocol PRN Reason: Agitation Magnesium Oxide (Mag-Ox) 400 mg PO TID [facility] Last Admin: 11/03/16 18:12 Dose: 400 mg Multivitamins/Minerals (Therapeutic-M Tab) 1 tab PO 0800 [facility] Last Admin: 11/03/16 10:56 Dose: 1 tab Ondansetron HCl (Zofran Inj) 4 mg IVP Q4H PRN PRN Reason: Nausea/Vomiting Pantoprazole Sodium (Protonix Ec Tab) 40 mg PO 0600 [facility] Last Admin: 11/03/16 05:41 Dose: 40 mg Thiamine HCl (Vitamin B1 Tab) 100 mg PO DAILY [facility] Last Admin: 11/03/16 10:56 Dose: 100 mg Vancomycin HCl (Vancocin 25 Mg/Ml (Oral Use)) 125 mg PO QID [facility] PRN Reason: Protocol Last Admin: 11/03/16 21:49 Dose: 125 mg - Labs Labs: 11/03/16 08:30 11/03/16 08:30 PT 14.1 Seconds (9.9-11.8) H 10/24/16 06:40 INR 1.31 (0.93-1.08) H 10/24/16 06:40 APTT 28.6 Seconds (23.7-30.8) 10/21/16 08:25 Attending/Attestation - Attestation I have personally seen and examined this patient.: Yes I have fully participated in the care of the patient.: Yes I have reviewed all pertinent clinical information, including history, physical exam and plan: Yes Notes (Text): This is an addendum to GI progress report dictated by Resident.The patient was seen and examined earlier. Medical records, lab studies, imagings were reviewed. Last 24 hours events reviewed. Agreed with the above treatment plan as outlined in Resident's notes the with the addition of the following On examination patient still has some mild tenderness in the epigastric and left upper quadrant area Decompressive cirrhosis Acute pancreatitis etiology unclear Dysphagia, hypopharyngeal lesion, need EGD in the follow-up Patient was admitted with severe anemia Hb 6.5grams,pt would need elective colonoscopy as an outpatient patient needs to be followed in GI clinic post discharge The importance of follow-up recommendations discussed with the patient at length 11/03/16 23:25
--- NOTE | 2016-11-03 19:00 | CP.PCM.PN ---
<YessiSherifn - Last Filed: 11/03/16 19:01> Subjective - Date & Time of Evaluation Date of Evaluation: 11/03/16 Time of Evaluation: 09:57 - Subjective Subjective: Patient was seen and examined at bedside. The patient reports three episodes of loose bowel movements since yesterday, however she denies any blood. The patient continues to reports lower left quadrant pain. She denies any chest pain , shortness of breath, nausea, vomiting, fever, chills, changes in vision, headaches or any other complaints. Objective - Vital Signs/Intake and Output Vital Signs (last 24 hours): Temp Pulse Resp BP Pulse Ox 97.8 F 90 20 100/60 99 11/03/16 16:00 11/03/16 16:00 11/03/16 16:00 11/03/16 16:00 11/03/16 16:00 Intake and Output: 11/03/16 11/03/16 06:59 18:59 Intake Total 120 Balance 120 - Medications Medications: Current Medications Acetaminophen (Tylenol 325mg Tab) 650 mg PO Q4H PRN PRN Reason: Temperature Last Admin: 10/30/16 16:32 Dose: 650 mg Betamethasone/Clotrimazole (Lotrisone) 0 ml TOP BID [facility] Last Admin: 11/03/16 18:12 Dose: 1 applic Folic Acid (Folic Acid) 1 mg PO DAILY [facility] Last Admin: 11/03/16 10:56 Dose: 1 mg Lorazepam (Ativan) 1 mg IVP Q3 PRN; Protocol PRN Reason: Agitation Magnesium Oxide (Mag-Ox) 400 mg PO TID [facility] Last Admin: 11/03/16 18:12 Dose: 400 mg Multivitamins/Minerals (Therapeutic-M Tab) 1 tab PO 0800 [facility] Last Admin: 11/03/16 10:56 Dose: 1 tab Ondansetron HCl (Zofran Inj) 4 mg IVP Q4H PRN PRN Reason: Nausea/Vomiting Pantoprazole Sodium (Protonix Ec Tab) 40 mg PO 0600 [facility] Last Admin: 11/03/16 05:41 Dose: 40 mg Thiamine HCl (Vitamin B1 Tab) 100 mg PO DAILY [facility] Last Admin: 11/03/16 10:56 Dose: 100 mg Vancomycin HCl (Vancocin 25 Mg/Ml (Oral Use)) 125 mg PO QID [facility] PRN Reason: Protocol Last Admin: 11/03/16 18:12 Dose: 125 mg - Labs Labs: 11/03/16 08:30 11/03/16 08:30 PT 14.1 Seconds (9.9-11.8) H 10/24/16 06:40 INR 1.31 (0.93-1.08) H 10/24/16 06:40 APTT 28.6 Seconds (23.7-30.8) 10/21/16 08:25 - Head Exam Head Exam: ATRAUMATIC, NORMAL INSPECTION, NORMOCEPHALIC - Eye Exam Eye Exam: EOMI, Normal appearance, PERRL. absent: Periorbital tenderness Pupil Exam: NORMAL ACCOMODATION - ENT Exam ENT Exam: Mucous Membranes Moist. absent: Normal Oropharynx - Neck Exam Neck Exam: Normal Inspection - Respiratory Exam Respiratory Exam: Clear to Ausculation Bilateral, NORMAL BREATHING PATTERN. absent: Accessory Muscle Use, Chest Wall Tenderness, Respiratory Distress - Cardiovascular Exam Cardiovascular Exam: REGULAR RHYTHM, RRR, +S1, +S2. absent: Gallop, Rubs - GI/Abdominal Exam GI & Abdominal Exam: Soft, Tenderness, Hernia, Normal Bowel Sounds. absent: Firm, Guarding, Rigid, Organomegaly - Extremities Exam Extremities Exam: Full ROM. absent: Tenderness - Back Exam Back Exam: NORMAL INSPECTION. absent: CVA tenderness (L), CVA tenderness (R), paraspinal tenderness - Neurological Exam Neurological Exam: Alert, Awake, CN II-XII Intact, Normal Gait, Oriented x3 - Psychiatric Exam Psychiatric exam: Normal Affect, Normal Mood - Skin Skin Exam: Dry, Intact, Normal Color Assessment and Plan - Assessment and Plan (Free Text) Assessment: This is a 51 yr. old female with past medical history of liver cirrhosis, etoh abuse who presents with dysphagia and abdominal swelling for 6 weeks. Plan: 1. Ascites 2/2 cirrhosis vs. SBP -Patient admitted and underwent a Therapeutic and Diagnostic Paracentesis s/p Day#1 -Ascitic fluid cx will be sent. follow up with rec's. -MELD Score of 9( has a 1.9% risk of mortality) -SAAG 1.4 g/dL. Portal hypertension likely the cause of ascites. - GI consult ordered appreciated -ID consult rec's appreciated. -Abdomen/pelvis CT:showed Cirrhosis, Moderate ascites, Possible enteritis/ colitis, and Mild cystitis. -Pending tap results. Will f/u tomorrow. -IR completed second tap. -Continue Strict I'S and O's. 2. Leukocytosis -WBC (5.5) today. Resolved. Rocephin d/c'ed. -Will follow up tomorrow with cbc. 3. C.Diff infection -stool sample positive. Rocephin d/c'ed. -Continue Vancomycin started. Will monitor closely. -ID consult appreciated. 4. Dysphagia -Currently on regular diet and 1500ml fluid restriction. Patient will be monitored closely. 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 Scheduled an appointment for next Thursday with Dr. Newman to follow up with CT findings. Discussed with patient the appointment and necessary steps going forward. 5. Anemia - Patient was Type and Cross-matched. Continue to closely monitor. - Monitor H/H - Transfuse Hgb if under 7 - OP colonoscopy recommended. 6. Abnormal electrolytes - Calcium gluconate & potassium chloride given to replete hypocalcemia & hypokalemia -Continue to monitor with serial CMP's. Will replete as needed. 7. Alcohol abuse/Withdrawal - urine alcohol & drug screen - counseled on EtOH cessation -Monitor for withdrawal symptoms. -Continue CIWA protocol, Seizure protocol, Fall Protocols ordered. -PT eval ordered. Will f/u rec's tomorrow. Possible D/C pending results. 8. Shingles vs. bacterial infection -currently not complaining of pain and rash clinically looks better. -Will monitor closely. GI & DVT PPX - Continue Protonix - Continue SCDs <Kofi Evans - Last Filed: 11/04/16 07:20> Objective - Vital Signs/Intake and Output Vital Signs (last 24 hours): Temp Pulse Resp BP Pulse Ox 97.8 F 90 20 100/60 99 11/03/16 16:00 11/03/16 16:00 11/03/16 16:00 11/03/16 16:00 11/03/16 16:00 Intake and Output: 11/04/16 11/04/16 06:59 18:59 Intake Total 900 Balance 900 - Medications Medications: Current Medications Acetaminophen (Tylenol 325mg Tab) 650 mg PO Q4H PRN PRN Reason: Temperature Last Admin: 10/30/16 16:32 Dose: 650 mg Betamethasone/Clotrimazole (Lotrisone) 0 ml TOP BID [facility] Last Admin: 11/03/16 18:12 Dose: 1 applic Folic Acid (Folic Acid) 1 mg PO DAILY [facility] Last Admin: 11/03/16 10:56 Dose: 1 mg Lorazepam (Ativan) 1 mg IVP Q3 PRN; Protocol PRN Reason: Agitation Magnesium Oxide (Mag-Ox) 400 mg PO TID [facility] Last Admin: 11/03/16 18:12 Dose: 400 mg Multivitamins/Minerals (Therapeutic-M Tab) 1 tab PO 0800 [facility] Last Admin: 11/03/16 10:56 Dose: 1 tab Ondansetron HCl (Zofran Inj) 4 mg IVP Q4H PRN PRN Reason: Nausea/Vomiting Pantoprazole Sodium (Protonix Ec Tab) 40 mg PO 0600 [facility] Last Admin: 11/04/16 06:02 Dose: 40 mg Thiamine HCl (Vitamin B1 Tab) 100 mg PO DAILY [facility] Last Admin: 11/03/16 10:56 Dose: 100 mg Vancomycin HCl (Vancocin 25 Mg/Ml (Oral Use)) 125 mg PO QID [facility] PRN Reason: Protocol Last Admin: 11/03/16 21:49 Dose: 125 mg - Labs Labs: 11/03/16 08:30 11/03/16 08:30 PT 14.1 Seconds (9.9-11.8) H 10/24/16 06:40 INR 1.31 (0.93-1.08) H 10/24/16 06:40 APTT 28.6 Seconds (23.7-30.8) 10/21/16 08:25 Attending/Attestation - Attestation I have personally seen and examined this patient.: Yes I have fully participated in the care of the patient.: Yes I have reviewed all pertinent clinical information, including history, physical exam and plan: Yes Notes (Text): 11/03/16 51 year old female with past medical history of alcohol abuse and cirrhosis who presented initially with abdominal distention and dysphagia. Patient is s/p paracentesis x 2. She is s/p EGD as well with findings of gastritis and pharyngeal lesion. CT neck was reviewed and ENT evaluation was appreciated who scheduled for outpatient biopsy. Hospital course was complicated with pancreatitis (improved) and cdiff diarrhea. Patient this morning still reports loose stools. She is on po vanco. D/c planning once diarrhea begins to improve. Patient was counselled on alcohol abstinence. Kofi Evans MD Hospitalist.
[2016-11-04] MEDS: Pantoprazole 40 mg EC Tab PO SCH (06:02)
[2016-11-04 08:11] LABS: BASO # 0.01 K/mm3 (0.0-2.0); BASO % 0.2 % (0.0-3.0); EOS # 0.1 (0.0-0.7); EOS % 1.6 % (1.5-5.0); GRAN # 3.83 (1.4-6.5); GRAN % 76.8 % (50.0-68.0); HEMATOCRIT 26.9 % (36.0-48.0); LYMPH # 0.3 (1.2-3.4); LYMPH % 6.6 % (22.0-35.0); MEAN CELL VOLUME 87.6 fl (80.0-105.0); MEAN CORPUSCULAR HEMOGLOBIN 26.7 pg (25.0-35.0); MEAN CORPUSCULAR HGB CONC 30.5 g/dl (31.0-37.0); MEAN PLATELET VOLUME 10.8 fl (7.0-11.0); MONO # 0.7 (0.1-0.6); MONO % 14.8 % (1.0-6.0); RED CELL DISTRIBUTION WIDTH 16.9 % (11.5-14.5)
[2016-11-04 08:20] LABS: ALB/GLOB RATIO 0.7 (1.1-1.8); ALKALINE PHOSPHATASE 76 U/L (38-126); ALT/SGPT 34 U/L (7-56); AST/SGOT 35 U/L (14-36); BILIRUBIN,TOTAL 0.3 mg/dL (0.2-1.3); BLOOD UREA NITROGEN 9 mg/dL (7-21); CALCIUM 7.7 mg/dL (8.4-10.5); CARBON DIOXIDE 26 mmol/L (21-33); CHLORIDE 106 mmol/L (95-110); GFR AFRICAN-AMERICAN > 60; GLUCOSE,RANDOM 99 mg/dL (70-110); POTASSIUM 4.2 mmol/L (3.6-5.0); SODIUM 140 mmol/L (132-148); TOTAL PROTEIN 5.3 g/dL (5.8-8.3)
[2016-11-04] MEDS: Clotrimazole/Betamethasone Lotion(30 ml) TOP SCH ×2 (10:25→18:57)
[2016-11-04] MEDS: Magnesium Oxide 400 mg Tab UD PO SCH ×3 (10:26→18:57)
[2016-11-04] MEDS: Vancomycin 25 MG/ML PO SCH ×3 (10:26→18:58)
[2016-11-04] MEDS: Multivitamin With Minerals Tab PO SCH (10:26)
[2016-11-04 14:14] LABS: HEMATOCRIT 31.3 % (36.0-48.0)
[2016-11-04 16:55] VITALS: BP 100/58; PULSE 80; RESP 20; TEMP 98.9; O2SAT 98
--- NOTE | 2016-11-04 17:53 | CP.PCM.PN ---
<Gee Dunham - Last Filed: 11/04/16 17:55> Subjective - Date & Time of Evaluation Date of Evaluation: 11/04/16 Time of Evaluation: 17:52 - Subjective Subjective: GI: Dr. Herrera Pt seen and examined. Resting comfortably in bed. Tolerating diet. No complaints at this time. Objective - Vital Signs/Intake and Output Vital Signs (last 24 hours): Temp Pulse Resp BP Pulse Ox 98.9 F 80 20 100/58 L 98 11/04/16 16:00 11/04/16 16:00 11/04/16 16:00 11/04/16 16:00 11/04/16 16:00 Intake and Output: 11/04/16 11/04/16 06:59 18:59 Intake Total 900 Balance 900 - Medications Medications: Current Medications Acetaminophen (Tylenol 325mg Tab) 650 mg PO Q4H PRN PRN Reason: Temperature Last Admin: 10/30/16 16:32 Dose: 650 mg Betamethasone/Clotrimazole (Lotrisone) 0 ml TOP BID [facility] Last Admin: 11/04/16 10:25 Dose: 1 applic Folic Acid (Folic Acid) 1 mg PO DAILY [facility] Last Admin: 11/04/16 10:25 Dose: 1 mg Lorazepam (Ativan) 1 mg IVP Q3 PRN; Protocol PRN Reason: Agitation Magnesium Oxide (Mag-Ox) 400 mg PO TID [facility] Last Admin: 11/04/16 15:02 Dose: 400 mg Multivitamins/Minerals (Therapeutic-M Tab) 1 tab PO 0800 [facility] Last Admin: 11/04/16 10:26 Dose: 1 tab Ondansetron HCl (Zofran Inj) 4 mg IVP Q4H PRN PRN Reason: Nausea/Vomiting Pantoprazole Sodium (Protonix Ec Tab) 40 mg PO 0600 [facility] Last Admin: 11/04/16 06:02 Dose: 40 mg Thiamine HCl (Vitamin B1 Tab) 100 mg PO DAILY [facility] Last Admin: 11/04/16 10:27 Dose: 100 mg Vancomycin HCl (Vancocin 25 Mg/Ml (Oral Use)) 125 mg PO QID [facility] PRN Reason: Protocol Last Admin: 11/04/16 15:03 Dose: 125 mg - Labs Labs: 11/04/16 14:05 11/04/16 08:07 PT 14.1 Seconds (9.9-11.8) H 10/24/16 06:40 INR 1.31 (0.93-1.08) H 10/24/16 06:40 APTT 28.6 Seconds (23.7-30.8) 10/21/16 08:25 - Constitutional Appears: Non-toxic, No Acute Distress - Head Exam Head Exam: ATRAUMATIC, NORMOCEPHALIC - Eye Exam Eye Exam: EOMI. absent: Scleral icterus - ENT Exam ENT Exam: Mucous Membranes Moist, Normal External Ear Exam - Neck Exam Neck Exam: Full ROM - Respiratory Exam Respiratory Exam: NORMAL BREATHING PATTERN. absent: Accessory Muscle Use, Respiratory Distress - GI/Abdominal Exam GI & Abdominal Exam: Soft. absent: Distended, Firm, Guarding, Rigid, Tenderness , Rebound - Extremities Exam Extremities Exam: absent: Calf Tenderness, Pedal Edema - Neurological Exam Neurological Exam: Alert, Awake, Oriented x3 - Psychiatric Exam Psychiatric exam: Normal Affect, Normal Mood - Skin Skin Exam: Normal Color, Warm Assessment and Plan - Assessment and Plan (Free Text) Assessment: 51F with: -Decompensated cirrhosis -Acute pancreatitis etiology unclear -Dysphagia, hypopharyngeal lesion, will need out pt EGD -admitted w. anemia H/H currently stable, will need elective colonoscopy as an outpatient patient -needs GI follow up upon discharge -d/w attending Charla PGY3 <Olman Herrera V - Last Filed: 11/04/16 23:52> Objective - Vital Signs/Intake and Output Vital Signs (last 24 hours): Temp Pulse Resp BP Pulse Ox 98.9 F 80 20 100/58 L 98 11/04/16 16:00 11/04/16 16:00 11/04/16 16:00 11/04/16 16:00 11/04/16 16:00 Intake and Output: 11/04/16 11/05/16 18:59 06:59 Intake Total 660 Balance 660 - Medications Medications: Current Medications Acetaminophen (Tylenol 325mg Tab) 650 mg PO Q4H PRN PRN Reason: Temperature Last Admin: 10/30/16 16:32 Dose: 650 mg Betamethasone/Clotrimazole (Lotrisone) 0 ml TOP BID [facility] Last Admin: 11/04/16 18:57 Dose: 1 applic Folic Acid (Folic Acid) 1 mg PO DAILY [facility] Last Admin: 11/04/16 10:25 Dose: 1 mg Lorazepam (Ativan) 1 mg IVP Q3 PRN; Protocol PRN Reason: Agitation Magnesium Oxide (Mag-Ox) 400 mg PO TID [facility] Last Admin: 11/04/16 18:57 Dose: 400 mg Multivitamins/Minerals (Therapeutic-M Tab) 1 tab PO 0800 [facility] Last Admin: 11/04/16 10:26 Dose: 1 tab Ondansetron HCl (Zofran Inj) 4 mg IVP Q4H PRN PRN Reason: Nausea/Vomiting Pantoprazole Sodium (Protonix Ec Tab) 40 mg PO 0600 [facility] Last Admin: 11/04/16 06:02 Dose: 40 mg Thiamine HCl (Vitamin B1 Tab) 100 mg PO DAILY [facility] Last Admin: 11/04/16 10:27 Dose: 100 mg Vancomycin HCl (Vancocin 25 Mg/Ml (Oral Use)) 125 mg PO QID [facility] PRN Reason: Protocol Last Admin: 11/04/16 18:58 Dose: 125 mg - Labs Labs: 11/04/16 14:05 11/04/16 08:07 PT 14.1 Seconds (9.9-11.8) H 10/24/16 06:40 INR 1.31 (0.93-1.08) H 10/24/16 06:40 APTT 28.6 Seconds (23.7-30.8) 10/21/16 08:25 Attending/Attestation - Attestation I have personally seen and examined this patient.: Yes I have fully participated in the care of the patient.: Yes I have reviewed all pertinent clinical information, including history, physical exam and plan: Yes Notes (Text): This is an addendum to GI progress report dictated by Resident.The patient was seen and examined earlier. Medical records, lab studies, imagings were reviewed. Last 24 hours events reviewed. Agreed with the above treatment plan as outlined in Resident's notes the with the addition of the following 11/04/16 20:52
--- NOTE | 2016-11-04 20:30 | CP.PCM.DIS ---
<YessiDearborn - Last Filed: 11/04/16 20:52> Provider - Provider Date of Admission: 10/21/16 10:05 Attending physician: Colin Man MD Time Spent in preparation of Discharge (in minutes): 45 Hospital Course - Lab Results Lab Results: Micro Results 10/22/16 11:36 Ascitic Fluid Gram Stain - Final 10/22/16 11:36 Ascitic Fluid Anaerobic Culture - Final NO ANAEROBES ISOLATED. 10/22/16 11:36 Ascitic Fluid Body Fluid Culture - Final No growth. 10/22/16 11:36 Ascitic Fluid Fungal Culture - Preliminary NO FUNGUS GROWTH IN 1 WEEK. 10/31/16 09:18 Blood-Venous Blood Culture - Preliminary NO GROWTH AFTER 4 DAYS 10/31/16 09:18 Blood-Venous Blood Culture - Preliminary NO GROWTH AFTER 4 DAYS 10/30/16 22:21 Stool C. difficile Antigen & Toxin A,B (M - Final 10/22/16 18:20 Blood-Venous Blood Culture - Final NO GROWTH AFTER 5 DAYS 10/22/16 18:20 Blood-Venous Gram Stain - Final TEST NOT PERFORMED 10/22/16 18:00 Blood-Venous Blood Culture - Final NO GROWTH AFTER 5 DAYS 10/22/16 18:00 Blood-Venous Gram Stain - Final TEST NOT PERFORMED 10/24/16 21:21 Urine Urine Culture - Final No Growth (<1,000 CFU/ML) Most Recent Lab Values WBC 5.0 10^3/ul (4.5-11.0) 11/04/16 08:07 RBC 3.07 10^6/uL (3.5-6.1) L 11/04/16 08:07 Hgb 9.6 g/dL (12.0-16.0) L 11/04/16 14:05 Hct 31.3 % (36.0-48.0) L 11/04/16 14:05 MCV 87.6 fl (80.0-105.0) 11/04/16 08:07 MCH 26.7 pg (25.0-35.0) 11/04/16 08:07 MCHC 30.5 g/dl (31.0-37.0) L 11/04/16 08:07 RDW 16.9 % (11.5-14.5) H 11/04/16 08:07 Plt Count 123 10^3/uL (120.0-450.0) 11/04/16 08:07 MPV 10.8 fl (7.0-11.0) 11/04/16 08:07 Gran % 76.8 % (50.0-68.0) H 11/04/16 08:07 Lymph % (Auto) 6.6 % (22.0-35.0) L 11/04/16 08:07 [place] % (Auto) 14.8 % (1.0-6.0) H 11/04/16 08:07 Eos % (Auto) 1.6 % (1.5-5.0) 11/04/16 08:07 Baso % (Auto) 0.2 % (0.0-3.0) 11/04/16 08:07 Gran # 3.83 (1.4-6.5) 11/04/16 08:07 Lymph # 0.3 (1.2-3.4) L 11/04/16 08:07 [place] # 0.7 (0.1-0.6) H 11/04/16 08:07 Eos # 0.1 (0.0-0.7) 11/04/16 08:07 Baso # 0.01 K/mm3 (0.0-2.0) 11/04/16 08:07 Neutrophils % (Manual) 86 % (50.0-70.0) H 10/30/16 06:23 Lymphocytes % (Manual) 6 % (22.0-35.0) L 10/30/16 06:23 Monocytes % (Manual) 8 % (1.0-6.0) H 10/30/16 06:23 Platelet Evaluation Sl dec (NORMAL) 10/30/16 06:23 Large Platelets Present 10/30/16 06:23 Giant Platelets Present 10/30/16 06:23 Polychromasia Slight 10/30/16 06:23 Hypochromasia 1+ 10/30/16 06:23 Anisocytosis (manual) 1+ 10/30/16 06:23 PT 14.1 Seconds (9.9-11.8) H 10/24/16 06:40 INR 1.31 (0.93-1.08) H 10/24/16 06:40 APTT 28.6 Seconds (23.7-30.8) 10/21/16 08:25 Sodium 140 mmol/L (132-148) 11/04/16 08:07 Potassium 4.2 mmol/L (3.6-5.0) 11/04/16 08:07 Chloride 106 mmol/L (95-110) 11/04/16 08:07 Carbon Dioxide 26 mmol/L (21-33) 11/04/16 08:07 Anion Gap 12 (10-20) 11/04/16 08:07 BUN 9 mg/dL (7-21) 11/04/16 08:07 Creatinine 0.6 mg/dL (0.5-1.4) 11/04/16 08:07 Est GFR ( Amer) > 60 11/04/16 08:07 Est GFR (Non-Af Amer) > 60 11/04/16 08:07 Random Glucose 99 mg/dL (70-110) 11/04/16 08:07 Calcium 7.7 mg/dL (8.4-10.5) L 11/04/16 08:07 Phosphorus 2.9 mg/dL (2.5-4.5) 10/24/16 06:40 Magnesium 1.6 mg/dL (1.7-2.2) L 10/28/16 05:15 Iron 12 ug/dL (45-180) L 10/22/16 18:20 TIBC 233 ug/dL (265-497) L 10/22/16 18:20 Ferritin 21.7 ng/mL 10/22/16 06:10 Total Bilirubin 0.3 mg/dL (0.2-1.3) 11/04/16 08:07 AST 35 U/L (14-36) 11/04/16 08:07 ALT 34 U/L (7-56) 11/04/16 08:07 Alkaline Phosphatase 76 U/L (38-126) 11/04/16 08:07 Ammonia < 9 umol/L (9-33) L 10/21/16 08:25 Total Protein 5.3 g/dL (5.8-8.3) L 11/04/16 08:07 Albumin 2.2 g/dL (3.0-4.8) L 11/04/16 08:07 Globulin 3.1 gm/dL 11/04/16 08:07 Albumin/Globulin Ratio 0.7 (1.1-1.8) L 11/04/16 08:07 Amylase 78 U/L (35-125) 10/30/16 10:11 Lipase 87 U/L (23-300) 10/31/16 06:30 Vitamin B12 935 pg/mL (239-931) H 10/22/16 06:10 Folate 11.8 ng/mL 10/22/16 06:10 Procalcitonin 0.15 NG/ML (0.19-0.49) L 10/31/16 09:18 Urine Color Yellow (YELLOW) 10/21/16 13:30 Urine Appearance Clear (CLEAR) 10/21/16 13:30 Urine pH 6.0 (4.7-8.0) 10/21/16 13:30 Ur Specific [place] 1.020 (1.005-1.035) 10/21/16 13:30 Urine Protein Negative mg/dL (<30 mg/dL) 10/21/16 13:30 Urine Glucose (UA) Negative mg/dL (NEGATIVE) 10/21/16 13:30 Urine Ketones Trace mg/dL (NEGATIVE) H 10/21/16 13:30 Urine Blood Trace-intact (NEGATIVE) H 10/21/16 13:30 Urine Nitrate Negative (NEGATIVE) 10/21/16 13:30 Urine Bilirubin Negative (NEGATIVE) 10/21/16 13:30 Urine Urobilinogen 0.2 E.U./dL (<1 E.U./dL) 10/21/16 13:30 Ur Leukocyte Esterase Negative [place]/uL (NEGATIVE) 10/21/16 13:30 Urine RBC 0 - 2 /hpf (0-2) 10/21/16 13:30 Urine WBC 0 - 2 /hpf (0-6) 10/21/16 13:30 Ur Epithelial Cells 1 - 3 /hpf (0-5) 10/21/16 13:30 Fluid Source Peritoneal/ascites 10/22/16 11:36 Fluid Appearance Cloudy (CLEAR) 10/22/16 11:36 Fluid WBC 100.0 /uL (0.0-300.0) 10/22/16 11:36 Fluid RBC 326.0 /uL (0.0-0.0) H 10/22/16 11:36 Fluid Tot Cell Count 100 (0-0) H 10/22/16 11:36 Fluid Neutrophils 54.0 % (0-0) H 10/22/16 11:36 Fluid Lymphocytes 46.0 % (0-0) H 10/22/16 11:36 Fld Monocyte/Macrophag 0 % (0-0) 10/22/16 11:36 Fluid Albumin 0.7 g/dL 10/22/16 11:36 Fluid Comment TEST NOT PERFORMED 10/22/16 11:36 Peritoneal Lipase 10.0 U/L (<10) H 10/22/16 11:36 Stool Occult Blood Positive (NEGATIVE) H 10/30/16 22:21 Urine Opiates Screen Negative (NEGATIVE) 10/21/16 16:00 Urine Methadone Screen Negative (NEGATIVE) 10/21/16 16:00 Ur Barbiturates Screen Negative (NEGATIVE) 10/21/16 16:00 Ur Phencyclidine Scrn Negative (NEGATIVE) 10/21/16 16:00 Ur Amphetamines Screen Negative (NEGATIVE) 10/21/16 16:00 U Benzodiazepines Scrn Negative (NEGATIVE) 10/21/16 16:00 U Oth Cocaine Metabols Negative (NEGATIVE) 10/21/16 16:00 U Cannabinoids Screen Negative (NEGATIVE) 10/21/16 16:00 Blood Type A NEGATIVE 10/22/16 16:10 Antibody Screen Negative 10/22/16 16:10 Crossmatch See Detail 10/22/16 16:10 BBK History Checked Patient has bt 10/22/16 16:10 - Hospital Course Hospital Course: This is a 51 year old woman with a past medical history of liver cirrhosis and etoh abuse that presents dysphagia and abdominal swelling that has become increasingly worse. The patient was given calcium gluconate and potassium chloride for hypokalemia and hypoglycemia in the emergency department and an abdominal ultrasound that showed ascites and hepatic cirrhosis. Patient was admitted and put n [facility] protocols for alcohol withdrawal. While in the hospital the patient was seen by Gastrenterology, Interventional Radiology, Infectious Disease, ENT, Physical therapy, and Psychiatry. The patient had a abdomen/pelvis CT that showed liver cirrhosis, ascites, possible enteritis, and mild cystitis. 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 Patient had two paracentesis done by Dr. Andres Lagos. Patient was started Keflex for a face rash. Shortly after patient began having diarrhea and a repeat C diff was ordered that was positive. Blood culture and urine cultures drawn were negative. The keflex was d/c'ed and po Vancomycin was started. Patient was seen this morning and reported an improvement in diarrhea. Patient was afebrile and with no leukocytosis. Patient was discharged with with instructions to follow up with her Primary care doctor and ENT within one week of discharge. Discharge Exam - Head Exam Head Exam: ATRAUMATIC, NORMOCEPHALIC - Eye Exam Eye Exam: EOMI, Normal appearance, PERRL Pupil Exam: NORMAL ACCOMODATION, PERRL. absent: Miosis - ENT Exam ENT Exam: Mucous Membranes Moist - Neck Exam Neck exam: Normal Inspection - Respiratory Exam Respiratory Exam: Clear to PA & Lateral, NORMAL BREATHING PATTERN, UNREMARKABLE. absent: Chest Wall Tenderness, Rhonchi, Wheezes - Cardiovascular Exam Cardiovascular Exam: REGULAR RHYTHM, +S1, +S2. absent: Bradycardia, Tachycardia , JVD, RRR - GI/Abdominal Exam GI & Abdominal Exam: Soft, Tenderness, Unremarkable. absent: Rebound, Rigid - Extremities Exam Extremities exam: full ROM, normal inspection, tenderness - Back Exam Back exam: NORMAL INSPECTION. absent: CVA tenderness (L), CVA tenderness (R), paraspinal tenderness - Neurological Exam Neurological exam: Alert, CN II-XII Intact, Normal Gait, Oriented x3 - Psychiatric Exam Psychiatric exam: Normal Affect, Normal Mood - Skin Skin Exam: Dry, Normal Color, Warm Discharge Plan - Discharge Medications Prescriptions: Furosemide [Lasix] 20 mg PO DAILY #30 tablet Furosemide [Lasix] 20 mg PO DAILY #30 tab Magnesium Oxide [Mag-Ox] 400 mg PO BID #6 tab Magnesium Oxide [Mag-Ox] 400 mg PO BID #6 tab Spironolactone [Aldactone] 50 mg PO DAILY #30 tab Spironolactone [Aldactone] 50 mg PO DAILY #30 tab Vancomycin [Vancocin 25 mg/ml (Oral Use)] 125 mg PO QID #24 ml - Follow Up Plan Condition: FAIR Disposition: HOME/ ROUTINE Instructions: Clostridium Difficile Infection (DC), Abuse of Alcohol (GEN), Chronic Dysphagia (GEN), Ascites (DC) Additional Instructions: -Follow up with primary care doctor, Dr. Gillis in 1 week for repeat BMP -Fluid restriction to 1400 ml per day -Follow up with GI in 1-2 weeks -Appointment with Dr. Newman, ENT, on ThursdayNov 05 at 10:30 am, or follow up with [facility] -Low sodium diet with fluid restriction. -Return to emergency department for any new or worsening symptoms. Dr. Tunde Dubois to E script prescriptions for Lasix 20mg daily, Magnesium oxide 400mg twice daily, & Adactone 50mg daily to [facility] . Referrals: Olman Herrera MD [Medical Doctor] - Navid Gillis MD [Family Provider] - Michael Newman DO [Doctor Osteopathy] - <Kofi Evans - Last Filed: 11/05/16 09:09> Provider - Provider Date of Admission: 10/21/16 10:05 Attending physician: Colin Man MD Hospital Course - Lab Results Lab Results: Micro Results 10/22/16 11:36 Ascitic Fluid Gram Stain - Final 10/22/16 11:36 Ascitic Fluid Anaerobic Culture - Final NO ANAEROBES ISOLATED. 10/22/16 11:36 Ascitic Fluid Body Fluid Culture - Final No growth. 10/22/16 11:36 Ascitic Fluid Fungal Culture - Preliminary NO FUNGUS GROWTH IN 1 WEEK. 10/31/16 09:18 Blood-Venous Blood Culture - Preliminary NO GROWTH AFTER 4 DAYS 10/31/16 09:18 Blood-Venous Blood Culture - Preliminary NO GROWTH AFTER 4 DAYS 10/30/16 22:21 Stool C. difficile Antigen & Toxin A,B (M - Final 10/22/16 18:20 Blood-Venous Blood Culture - Final NO GROWTH AFTER 5 DAYS 10/22/16 18:20 Blood-Venous Gram Stain - Final TEST NOT PERFORMED 10/22/16 18:00 Blood-Venous Blood Culture - Final NO GROWTH AFTER 5 DAYS 10/22/16 18:00 Blood-Venous Gram Stain - Final TEST NOT PERFORMED 10/24/16 21:21 Urine Urine Culture - Final No Growth (<1,000 CFU/ML) Most Recent Lab Values WBC 5.0 10^3/ul (4.5-11.0) 11/04/16 08:07 RBC 3.07 10^6/uL (3.5-6.1) L 11/04/16 08:07 Hgb 9.6 g/dL (12.0-16.0) L 11/04/16 14:05 Hct 31.3 % (36.0-48.0) L 11/04/16 14:05 MCV 87.6 fl (80.0-105.0) 11/04/16 08:07 MCH 26.7 pg (25.0-35.0) 11/04/16 08:07 MCHC 30.5 g/dl (31.0-37.0) L 11/04/16 08:07 RDW 16.9 % (11.5-14.5) H 11/04/16 08:07 Plt Count 123 10^3/uL (120.0-450.0) 11/04/16 08:07 MPV 10.8 fl (7.0-11.0) 11/04/16 08:07 Gran % 76.8 % (50.0-68.0) H 11/04/16 08:07 Lymph % (Auto) 6.6 % (22.0-35.0) L 11/04/16 08:07 [place] % (Auto) 14.8 % (1.0-6.0) H 11/04/16 08:07 Eos % (Auto) 1.6 % (1.5-5.0) 11/04/16 08:07 Baso % (Auto) 0.2 % (0.0-3.0) 11/04/16 08:07 Gran # 3.83 (1.4-6.5) 11/04/16 08:07 Lymph # 0.3 (1.2-3.4) L 11/04/16 08:07 [place] # 0.7 (0.1-0.6) H 11/04/16 08:07 Eos # 0.1 (0.0-0.7) 11/04/16 08:07 Baso # 0.01 K/mm3 (0.0-2.0) 11/04/16 08:07 Neutrophils % (Manual) 86 % (50.0-70.0) H 10/30/16 06:23 Lymphocytes % (Manual) 6 % (22.0-35.0) L 10/30/16 06:23 Monocytes % (Manual) 8 % (1.0-6.0) H 10/30/16 06:23 Platelet Evaluation Sl dec (NORMAL) 10/30/16 06:23 Large Platelets Present 10/30/16 06:23 Giant Platelets Present 10/30/16 06:23 Polychromasia Slight 10/30/16 06:23 Hypochromasia 1+ 10/30/16 06:23 Anisocytosis (manual) 1+ 10/30/16 06:23 PT 14.1 Seconds (9.9-11.8) H 10/24/16 06:40 INR 1.31 (0.93-1.08) H 10/24/16 06:40 APTT 28.6 Seconds (23.7-30.8) 10/21/16 08:25 Sodium 140 mmol/L (132-148) 11/04/16 08:07 Potassium 4.2 mmol/L (3.6-5.0) 11/04/16 08:07 Chloride 106 mmol/L (95-110) 11/04/16 08:07 Carbon Dioxide 26 mmol/L (21-33) 11/04/16 08:07 Anion Gap 12 (10-20) 11/04/16 08:07 BUN 9 mg/dL (7-21) 11/04/16 08:07 Creatinine 0.6 mg/dL (0.5-1.4) 11/04/16 08:07 Est GFR ( Amer) > 60 11/04/16 08:07 Est GFR (Non-Af Amer) > 60 11/04/16 08:07 Random Glucose 99 mg/dL (70-110) 11/04/16 08:07 Calcium 7.7 mg/dL (8.4-10.5) L 11/04/16 08:07 Phosphorus 2.9 mg/dL (2.5-4.5) 10/24/16 06:40 Magnesium 1.6 mg/dL (1.7-2.2) L 10/28/16 05:15 Iron 12 ug/dL (45-180) L 10/22/16 18:20 TIBC 233 ug/dL (265-497) L 10/22/16 18:20 Ferritin 21.7 ng/mL 10/22/16 06:10 Total Bilirubin 0.3 mg/dL (0.2-1.3) 11/04/16 08:07 AST 35 U/L (14-36) 11/04/16 08:07 ALT 34 U/L (7-56) 11/04/16 08:07 Alkaline Phosphatase 76 U/L (38-126) 11/04/16 08:07 Ammonia < 9 umol/L (9-33) L 10/21/16 08:25 Total Protein 5.3 g/dL (5.8-8.3) L 11/04/16 08:07 Albumin 2.2 g/dL (3.0-4.8) L 11/04/16 08:07 Globulin 3.1 gm/dL 11/04/16 08:07 Albumin/Globulin Ratio 0.7 (1.1-1.8) L 11/04/16 08:07 Amylase 78 U/L (35-125) 10/30/16 10:11 Lipase 87 U/L (23-300) 10/31/16 06:30 Vitamin B12 935 pg/mL (239-931) H 10/22/16 06:10 Folate 11.8 ng/mL 10/22/16 06:10 Procalcitonin 0.15 NG/ML (0.19-0.49) L 10/31/16 09:18 Urine Color Yellow (YELLOW) 10/21/16 13:30 Urine Appearance Clear (CLEAR) 10/21/16 13:30 Urine pH 6.0 (4.7-8.0) 10/21/16 13:30 Ur Specific [place] 1.020 (1.005-1.035) 10/21/16 13:30 Urine Protein Negative mg/dL (<30 mg/dL) 10/21/16 13:30 Urine Glucose (UA) Negative mg/dL (NEGATIVE) 10/21/16 13:30 Urine Ketones Trace mg/dL (NEGATIVE) H 10/21/16 13:30 Urine Blood Trace-intact (NEGATIVE) H 10/21/16 13:30 Urine Nitrate Negative (NEGATIVE) 10/21/16 13:30 Urine Bilirubin Negative (NEGATIVE) 10/21/16 13:30 Urine Urobilinogen 0.2 E.U./dL (<1 E.U./dL) 10/21/16 13:30 Ur Leukocyte Esterase Negative [place]/uL (NEGATIVE) 10/21/16 13:30 Urine RBC 0 - 2 /hpf (0-2) 10/21/16 13:30 Urine WBC 0 - 2 /hpf (0-6) 10/21/16 13:30 Ur Epithelial Cells 1 - 3 /hpf (0-5) 10/21/16 13:30 Fluid Source Peritoneal/ascites 10/22/16 11:36 Fluid Appearance Cloudy (CLEAR) 10/22/16 11:36 Fluid WBC 100.0 /uL (0.0-300.0) 10/22/16 11:36 Fluid RBC 326.0 /uL (0.0-0.0) H 10/22/16 11:36 Fluid Tot Cell Count 100 (0-0) H 10/22/16 11:36 Fluid Neutrophils 54.0 % (0-0) H 10/22/16 11:36 Fluid Lymphocytes 46.0 % (0-0) H 10/22/16 11:36 Fld Monocyte/Macrophag 0 % (0-0) 10/22/16 11:36 Fluid Albumin 0.7 g/dL 10/22/16 11:36 Fluid Comment TEST NOT PERFORMED 10/22/16 11:36 Peritoneal Lipase 10.0 U/L (<10) H 10/22/16 11:36 Stool Occult Blood Positive (NEGATIVE) H 10/30/16 22:21 Urine Opiates Screen Negative (NEGATIVE) 10/21/16 16:00 Urine Methadone Screen Negative (NEGATIVE) 10/21/16 16:00 Ur Barbiturates Screen Negative (NEGATIVE) 10/21/16 16:00 Ur Phencyclidine Scrn Negative (NEGATIVE) 10/21/16 16:00 Ur Amphetamines Screen Negative (NEGATIVE) 10/21/16 16:00 U Benzodiazepines Scrn Negative (NEGATIVE) 10/21/16 16:00 U Oth Cocaine Metabols Negative (NEGATIVE) 10/21/16 16:00 U Cannabinoids Screen Negative (NEGATIVE) 10/21/16 16:00 Blood Type A NEGATIVE 10/22/16 16:10 Antibody Screen Negative 10/22/16 16:10 Crossmatch See Detail 10/22/16 16:10 BBK History Checked Patient has bt 10/22/16 16:10 Attending/Attestation - Attestation I have personally seen and examined this patient.: Yes I have fully participated in the care of the patient.: Yes I have reviewed all pertinent clinical information, including history, physical exam and plan: Yes Notes (Text): 11/04/16 51 year old female with past medical history of alcohol abuse and cirrhosis who presented initially with abdominal distention secondary to ascites and dysphagia. She had paracentesis x w while in hospital. She was seen by GI and underwent EGD with findings of gastritis and pharyngeal lesion. This was followed up with a CT neck and ENT evaluation. She is scheduled for outpatient biopsy with ENT tomorrow. Hospital course was complicated with pancreatitis and cdiff diarrhea which have improved. Patient will be discharged home today to follow up with her pmd. Follow up with GI and ENT as above. Kofi Evans MD Hospitalist.
--- NOTE | 2016-11-04 22:18 | CP.PCM.PN ---
Subjective - Date & Time of Evaluation Date of Evaluation: 11/04/16 Time of Evaluation: 22:14 - Subjective Subjective: Spoke to the nurse several times about this patient. Each time, the nurse was demanding that I discharge the patient and give her scripts for Lasix and Aldactone. I advised her each time that I would review the chart and provide the appropriate prescriptions if necessary. The nursing plating and point assembly supervisor then contacted me regarding the same issue, to which I told her I would write the scripts upon reviewing the chart. As I discussed with the nursing plating and point assembly supervisor, I will e-prescribe the medications once I have thoroughly reviewed the chart. Nursing Region Manager Oneyda expresses agreement with the plan and will relay this information to the other nurse. Objective - Vital Signs/Intake and Output Vital Signs (last 24 hours): Temp Pulse Resp BP Pulse Ox 98.9 F 80 20 100/58 L 98 11/04/16 16:00 11/04/16 16:00 11/04/16 16:00 11/04/16 16:00 11/04/16 16:00 Intake and Output: 11/04/16 11/05/16 18:59 06:59 Intake Total 660 Balance 660 - Medications Medications: Current Medications Acetaminophen (Tylenol 325mg Tab) 650 mg PO Q4H PRN PRN Reason: Temperature Last Admin: 10/30/16 16:32 Dose: 650 mg Betamethasone/Clotrimazole (Lotrisone) 0 ml TOP BID [facility] Last Admin: 11/04/16 18:57 Dose: 1 applic Folic Acid (Folic Acid) 1 mg PO DAILY [facility] Last Admin: 11/04/16 10:25 Dose: 1 mg Lorazepam (Ativan) 1 mg IVP Q3 PRN; Protocol PRN Reason: Agitation Magnesium Oxide (Mag-Ox) 400 mg PO TID [facility] Last Admin: 11/04/16 18:57 Dose: 400 mg Multivitamins/Minerals (Therapeutic-M Tab) 1 tab PO 0800 [facility] Last Admin: 11/04/16 10:26 Dose: 1 tab Ondansetron HCl (Zofran Inj) 4 mg IVP Q4H PRN PRN Reason: Nausea/Vomiting Pantoprazole Sodium (Protonix Ec Tab) 40 mg PO 0600 [facility] Last Admin: 11/04/16 06:02 Dose: 40 mg Thiamine HCl (Vitamin B1 Tab) 100 mg PO DAILY [facility] Last Admin: 11/04/16 10:27 Dose: 100 mg Vancomycin HCl (Vancocin 25 Mg/Ml (Oral Use)) 125 mg PO QID LIZ PRN Reason: Protocol Last Admin: 11/04/16 18:58 Dose: 125 mg - Labs Labs: 11/04/16 14:05 11/04/16 08:07 PT 14.1 Seconds (9.9-11.8) H 10/24/16 06:40 INR 1.31 (0.93-1.08) H 10/24/16 06:40 APTT 28.6 Seconds (23.7-30.8) 10/21/16 08:25
== END 2016-11-04 23:00 | disposition home or self-care (01) | DRG 556 ==
LOC: ED 08:14 → ERH 10:05 → 3RNO 17:02 → 3RSO 10-31 17:45
PROVIDERS: ADMIT Internal Medicine; ATTEND Hospitalist
PROC: 0W9G3ZX Drainage of Peritoneal Cavity, Percutaneous Approach, Diagnostic (ICD-10-PCS; 2016-10-22)
PROC: 30233N1 Transfusion of Nonautologous Red Blood Cells into Peripheral Vein, Percutaneous Approach (ICD-10-PCS; 2016-10-23)
PROC: 0DB98ZX Excision of Duodenum, Via Natural or Artificial Opening Endoscopic, Diagnostic (ICD-10-PCS; 2016-10-24)
PROC: 0DB68ZX Excision of Stomach, Via Natural or Artificial Opening Endoscopic, Diagnostic (ICD-10-PCS; 2016-10-24)
PROC: 0DB48ZX Excision of Esophagogastric Junction, Via Natural or Artificial Opening Endoscopic, Diagnostic (ICD-10-PCS; 2016-10-24)
PROC: 0W9G3ZZ Drainage of Peritoneal Cavity, Percutaneous Approach (ICD-10-PCS; principal; 2016-10-29 10:00)
DX: K70.31 Alcoholic cirrhosis of liver with ascites (principal); A41.9 Sepsis, unspecified organism; A04.7 Enterocolitis due to Clostridium difficile; K85.90 Acute pancreatitis without necrosis or infection, unspecified; D69.59 Other secondary thrombocytopenia; E87.6 Hypokalemia; I95.9 Hypotension, unspecified; K76.6 Portal hypertension; B02.9 Zoster without complications; K70.11 Alcoholic hepatitis with ascites; E83.42 Hypomagnesemia; R13.10 Dysphagia, unspecified; E83.51 Hypocalcemia; N30.90 Cystitis, unspecified without hematuria; I89.8 Other specified noninfective disorders of lymphatic vessels and lymph nodes; D64.9 Anemia, unspecified; F10.10 Alcohol abuse, uncomplicated; F41.9 Anxiety disorder, unspecified; F32.9 Major depressive disorder, single episode, unspecified; K29.50 Unspecified chronic gastritis without bleeding; J39.2 Other diseases of pharynx; Y90.9 Presence of alcohol in blood, level not specified

== ENCOUNTER 2016-12-01 00:10 | Inpatient (IN) | payer MEDICAID, OTHER ==
[2016-12-01 00:11] VITALS: BMI 18.5
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
[2016-12-01] MEDS ORDERED: Morphine 2 mg/ml ISec IVP STA (02:03)
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
[2016-12-01 03:06] LABS: BASO # 0.03 K/mm3 (0.0-2.0); BASO % 0.3 % (0.0-3.0); EOS # 0.1 (0.0-0.7); EOS % 0.5 % (1.5-5.0); GRAN # 8.2 (1.4-6.5); LYMPH # 0.7 (1.2-3.4); LYMPH % 6.7 % (22.0-35.0); MEAN CELL VOLUME 79.3 fl (80.0-105.0); MEAN CORPUSCULAR HEMOGLOBIN 24.1 pg (25.0-35.0); MEAN CORPUSCULAR HGB CONC 30.4 g/dl (31.0-37.0); MONO # 0.7 (0.1-0.6); MONO % 7.5 % (1.0-6.0); RED CELL DISTRIBUTION WIDTH 17.9 % (11.5-14.5); WHITE BLOOD COUNT 9.7 10^3/ul (4.5-11.0)
[2016-12-01 03:15] LABS: INR 1.23 (0.93-1.08); PARTIAL THROMBOPLASTIN TIME 36.1 Seconds (25.1-36.5)
[2016-12-01] MEDS ORDERED: Morphine 2 mg/ml ISec IVP PRN (03:17)
[2016-12-01 03:18] LABS: URINE BILIRUBIN NEGATIVE (NEGATIVE); URINE BLOOD NEGATIVE (NEGATIVE); URINE GLUCOSE (UA) NEGATIVE (NEGATIVE); URINE KETONE NEGATIVE (NEGATIVE); URINE LEUKOCYTE ESTERASE NEGATIVE Leu/uL (NEGATIVE); URINE PROTEIN NEGATIVE mg/dL (<30 mg/dL); URINE UROBILINOGEN 0.2 E.U./dL (<1 E.U./dL)
[2016-12-01 03:25] LABS: URINE APPEARANCE CLEAR (CLEAR); URINE COLOR YELLOW (YELLOW)
[2016-12-01 03:32] LABS: BLOOD UREA NITROGEN 5 mg/dL (7-21); CARBON DIOXIDE 22 mmol/L (21-33); CHLORIDE 108 mmol/L (98-107); GFR AFRICAN-AMERICAN > 60; GLUCOSE,RANDOM 90 mg/dL (70-110); POTASSIUM 3.8 mmol/L (3.6-5.0); SODIUM 138 mmol/L (132-148)
[2016-12-01 03:33] LABS: ALB/GLOB RATIO 0.8 (1.1-1.8); ALKALINE PHOSPHATASE 118 U/L (38-126); ALT/SGPT 20 U/L (7-56); AST/SGOT 41 U/L (14-36); BILIRUBIN,TOTAL 0.7 mg/dL (0.2-1.3); CALCIUM 7.6 mg/dL (8.4-10.5); TOTAL PROTEIN 5.5 g/dL (5.8-8.3)
[2016-12-01] MEDS ORDERED: Morphine 2 mg/ml ISec IVP SCH (06:00)
[2016-12-01 07:04] LABS: BASO # 0.03 K/mm3 (0.0-2.0); BASO % 0.5 % (0.0-3.0); EOS % 0.7 % (1.5-5.0); GRAN # 4.51 (1.4-6.5); HEMATOCRIT 26.6 % (36.0-48.0); LYMPH # 0.6 (1.2-3.4); LYMPH % 10.3 % (22.0-35.0); MEAN CELL VOLUME 79.4 fl (80.0-105.0); MEAN CORPUSCULAR HEMOGLOBIN 24.2 pg (25.0-35.0); MEAN CORPUSCULAR HGB CONC 30.5 g/dl (31.0-37.0); MEAN PLATELET VOLUME 9.9 fl (7.0-11.0); MONO # 0.7 (0.1-0.6); MONO % 11.5 % (1.0-6.0); RED CELL DISTRIBUTION WIDTH 17.8 % (11.5-14.5); WHITE BLOOD COUNT 5.9 10^3/ul (4.5-11.0)
[2016-12-01 07:34] LABS: ALB/GLOB RATIO 0.8 (1.1-1.8); ALKALINE PHOSPHATASE 116 U/L (38-126); ALT/SGPT 28 U/L (7-56); AST/SGOT 36 U/L (14-36); BILIRUBIN,TOTAL 0.7 mg/dL (0.2-1.3); BLOOD UREA NITROGEN 5 mg/dL (7-21); CALCIUM 7.7 mg/dL (8.4-10.5); CARBON DIOXIDE 26 mmol/L (21-33); CHLORIDE 112 mmol/L (95-110); GFR AFRICAN-AMERICAN > 60; GLUCOSE,RANDOM 91 mg/dL (70-110); SODIUM 142 mmol/L (132-148); TOTAL PROTEIN 5.2 g/dL (5.8-8.3)
--- NOTE | 2016-12-01 09:33 | CARD ---
APPROVED REPORT EKG Measurement Heart [id number] MD [id number] <Conclusion> Normal sinus rhythm Low voltage QRS Prolonged QT NSSTW changes No change
--- NOTE | 2016-12-01 10:53 | RAD ---
PROCEDURE: Radiographs of the right tibia and fibula. HISTORY: pain s/p fall COMPARISON: None available. TECHNIQUE: Frontal and lateral views obtained. FINDINGS: BONES: There are acute transverse mildly displaced fractures in the medial and lateral malleoli. Bone alignment is normal. There is mild diffuse bone demineralization. JOINT SPACES: Unremarkable. OTHER FINDINGS: There is moderate periarticular soft tissue swelling, worse laterally. IMPRESSION: Acute transverse nondisplaced fractures in the medial and lateral malleoli with periarticular soft tissue swelling, worse laterally.
--- NOTE | 2016-12-01 10:55 | RAD ---
PROCEDURE: Right Ankle Radiographs. HISTORY: pain s/p fall COMPARISON: None FINDINGS: BONES: There is an acute transverse fracture in the medial malleolus with 4 mm medial displacement without significant angulation. There is an acute transverse mildly displaced fracture in the lateral malleolus with 5 mm medial displacement without significant angulation. There is diffuse bone demineralization. JOINTS: Ankle mortise maintained. Talar dome intact SOFT TISSUES: There is moderate periarticular soft tissue swelling, worse laterally. OTHER FINDINGS: None. IMPRESSION: Acute transverse mildly displaced fractures in the medial and lateral malleoli with periarticular soft tissue swelling, worse laterally.
--- NOTE | 2016-12-01 10:55 | RAD ---
HISTORY: admission COMPARISON: 10/31/2016. FINDINGS: LUNGS: The lungs are well inflated and clear. PLEURA: No significant pleural effusion identified, no pneumothorax apparent. CARDIOVASCULAR: Normal. OSSEOUS STRUCTURES: No significant abnormalities. VISUALIZED UPPER ABDOMEN: Normal. OTHER FINDINGS: None. IMPRESSION: No active pulmonary disease.
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
[2016-12-01] MEDS: Sodium Chloride 0.9% 1,000 ML IV SCH ×2 (12:44→21:54)
[2016-12-01] MEDS: Morphine 4 mg/ml ISec IVP PRN (17:44)
[2016-12-02 07:06] LABS: ALB/GLOB RATIO 0.8 (1.1-1.8); AST/SGOT 30 U/L (14-36); BILIRUBIN,TOTAL 0.8 mg/dL (0.2-1.3); BLOOD UREA NITROGEN 7 mg/dL (7-21); CALCIUM 7.7 mg/dL (8.4-10.5); CARBON DIOXIDE 22 mmol/L (21-33); CHLORIDE 112 mmol/L (95-110); GFR AFRICAN-AMERICAN > 60; GLUCOSE,RANDOM 72 mg/dL (70-110); POTASSIUM 4.2 mmol/L (3.6-5.0); SODIUM 140 mmol/L (132-148); TOTAL PROTEIN 5.3 g/dL (5.8-8.3)
[2016-12-02 07:07] LABS: ALKALINE PHOSPHATASE 120 U/L (38-126); ALT/SGPT 32 U/L (7-56)
[2016-12-02 07:09] LABS: BASO # 0.02 K/mm3 (0.0-2.0); BASO % 0.3 % (0.0-3.0); EOS % 0.7 % (1.5-5.0); GRAN # 4.7 (1.4-6.5); GRAN % 78.6 % (50.0-68.0); HEMATOCRIT 28.8 % (36.0-48.0); LYMPH # 0.5 (1.2-3.4); LYMPH % 7.5 % (22.0-35.0); MEAN CELL VOLUME 80.7 fl (80.0-105.0); MEAN CORPUSCULAR HEMOGLOBIN 24.1 pg (25.0-35.0); MEAN CORPUSCULAR HGB CONC 29.9 g/dl (31.0-37.0); MEAN PLATELET VOLUME 9.9 fl (7.0-11.0); MONO # 0.8 (0.1-0.6); MONO % 12.9 % (1.0-6.0)
[2016-12-02] MEDS: Morphine 4 mg/ml ISec IVP PRN ×3 (08:47→22:46)
[2016-12-02] MEDS: Sodium Chloride 0.9% 1,000 ML IV SCH ×2 (10:21→20:56)
--- NOTE | 2016-12-02 12:11 | CP.PCM.PN ---
<Lottie Torres - Last Filed: 12/02/16 12:06> Subjective - Date & Time of Evaluation Date of Evaluation: 12/02/16 Time of Evaluation: 08:00 - Subjective Subjective: Dr. Donovan Giraldo Pt was seen and examined at bedside. No acute complaints at this time. Pt RLE is bandaged/immobilized. Pt claims that pain has been adequately controlled. Pt denied fever, chills, sob, chest pains, abdominal pains, nausea, vomitting, diarrhea, constipation, or urinary symptoms. Objective - Vital Signs/Intake and Output Vital Signs (last 24 hours): Temp Pulse Resp BP Pulse Ox 98.4 F 108 H 20 117/84 94 L 12/02/16 08:00 12/02/16 08:00 12/02/16 08:00 12/02/16 08:00 12/02/16 08:00 Intake and Output: 12/02/16 12/02/16 06:59 18:59 Intake Total 0 Balance 0 - Medications Medications: Current Medications Acetaminophen (Tylenol 325mg Tab) 650 mg PO Q6H PRN PRN Reason: Pain, moderate (4-7) Last Admin: 12/01/16 22:35 Dose: 650 mg Sodium Chloride (Sodium Chloride 0.9%) 1,000 mls @ 100 mls/hr IV .Q10H LIZ Last Admin: 12/02/16 10:21 Dose: 100 mls/hr Lorazepam (Ativan) 2 mg IVP Q3H PRN; Protocol PRN Reason: Anxiety Morphine Sulfate (Morphine) 2 mg IVP Q6 PRN PRN Reason: Pain, severe (8-10) Last Admin: 12/02/16 08:47 Dose: 2 mg Pantoprazole Sodium (Protonix Inj) 40 mg IVP DAILY LIZ Last Admin: 12/02/16 10:21 Dose: 40 mg - Labs Labs: 12/02/16 06:44 12/02/16 06:44 PT 13.6 SECONDS (9.4-12.5) H 12/01/16 02:48 INR 1.23 (0.93-1.08) H 12/01/16 02:48 APTT 36.1 Seconds (25.1-36.5) 12/01/16 02:48 - Constitutional Appears: No Acute Distress - Head Exam Head Exam: ATRAUMATIC, NORMAL INSPECTION, NORMOCEPHALIC - Eye Exam Eye Exam: EOMI, Normal appearance, PERRL Pupil Exam: NORMAL ACCOMODATION, PERRL - ENT Exam ENT Exam: Mucous Membranes Moist, Normal Exam - Neck Exam Neck Exam: Full ROM, Normal Inspection. absent: Lymphadenopathy - Respiratory Exam Respiratory Exam: Clear to Ausculation Bilateral, NORMAL BREATHING PATTERN - Cardiovascular Exam Cardiovascular Exam: REGULAR RHYTHM, +S1, +S2 - GI/Abdominal Exam GI & Abdominal Exam: Soft, Normal Bowel Sounds. absent: Tenderness - Extremities Exam Additional comments: RLE bandaged - Neurological Exam Neurological Exam: Alert, Awake, CN II-XII Intact, Oriented x3 - Psychiatric Exam Psychiatric exam: Normal Affect, Normal Mood - Skin Skin Exam: Dry, Intact, Normal Color, Warm Assessment and Plan - Assessment and Plan (Free Text) Assessment: This is a 51 yr. old female with past medical histor of liver cirrhosis, etoh abuse who presents with right ankle pain after twisting it coming down the stairs found to have Acute transverse nondisplaced fractures in the medial and lateral malleoli. 1. Right distal fibular and distal right of tibia fracture. - Ortho consulted. Recommended Podiatry fu - Tib/fib xrays: Acute transverse nondisplaced fractures in the medial and lateral malleoli with periarticular soft tissue swelling, worse laterally - Ankle xray: Acute transverse nondisplaced fractures in the medial and lateral malleoli with periarticular soft tissue swelling, worse laterally - Posterior splint reapllied to right leg - Pain management 2. Anemia - stable, no signs of acute blood loss - Continue to monitor H/H - Transfuse Hgb< 7 3. Chronic pancreatitis -No medical management indicated at this time. 4. Alcohol abuse -Last drink was on Thursday. - counseled on EtOH cessation -Monitor for withdrawal symptoms. -Will consider CIWA protocol, Seizure protocol, Fall Protocols if patient begins to withdraw. GI & DVT PPX - Protonix - SCDs Seen Reviewed and discussed with attending <Colin Man - Last Filed: 12/02/16 17:56> Objective - Vital Signs/Intake and Output Vital Signs (last 24 hours): Temp Pulse Resp BP Pulse Ox 98.4 F 108 H 20 117/84 94 L 12/02/16 08:00 12/02/16 08:00 12/02/16 08:00 12/02/16 08:00 12/02/16 08:00 Intake and Output: 12/02/16 12/02/16 06:59 18:59 Intake Total 0 Balance 0 - Medications Medications: Current Medications Acetaminophen (Tylenol 325mg Tab) 650 mg PO Q6H PRN PRN Reason: Pain, moderate (4-7) Last Admin: 12/01/16 22:35 Dose: 650 mg Sodium Chloride (Sodium Chloride 0.9%) 1,000 mls @ 100 mls/hr IV .Q10H LIZ Last Admin: 12/02/16 10:21 Dose: 100 mls/hr Lorazepam (Ativan) 2 mg IVP Q3H PRN; Protocol PRN Reason: Anxiety Morphine Sulfate (Morphine) 2 mg IVP Q6 PRN PRN Reason: Pain, severe (8-10) Last Admin: 12/02/16 16:01 Dose: 2 mg Pantoprazole Sodium (Protonix Inj) 40 mg IVP DAILY LIZ Last Admin: 12/02/16 10:21 Dose: 40 mg - Labs Labs: 12/02/16 06:44 12/02/16 06:44 PT 13.6 SECONDS (9.4-12.5) H 12/01/16 02:48 INR 1.23 (0.93-1.08) H 12/01/16 02:48 APTT 36.1 Seconds (25.1-36.5) 12/01/16 02:48 Attending/Attestation - Attestation I have personally seen and examined this patient.: Yes I have fully participated in the care of the patient.: Yes I have reviewed all pertinent clinical information, including history, physical exam and plan: Yes Notes (Text): I have seen and examined the patient at bedside. Agree with the above note with the following additions/ exceptions: Briefly this is 51 year old female with history of liver cirrhosis, alcohol abuse who was admitted for management of ankle fracture. Xray revealed acute transverse non displaced fracture in medial and lateral malleoli. Ortho consult appreciated. Posterior splint was reapplied. Awaiting ortho decision regarding surgery. Patient is not going thru withdrawal. Alcohol cessation counseling provided. Upon discharge patient will follow up with Dr Gillis. Dr Colin Man
--- NOTE | 2016-12-02 14:55 | CP.PCM.PN ---
Subjective - Date & Time of Evaluation Date of Evaluation: 12/02/16 Time of Evaluation: 13:49 - Subjective Subjective: Patient seen and evaluated at bedside request of Dr. Grover. States that she feels her swelling has gone down since yesterday. Pain is well controlled. Says that she is remaining nonweight bearing to affected extremity. Denies any further pedal complaints at this time. Denies N/V/F/C/CP/SOB Objective - Vital Signs/Intake and Output Vital Signs (last 24 hours): Temp Pulse Resp BP Pulse Ox 98.4 F 108 H 20 117/84 94 L 12/02/16 08:00 12/02/16 08:00 12/02/16 08:00 12/02/16 08:00 12/02/16 08:00 Intake and Output: 12/02/16 12/02/16 06:59 18:59 Intake Total 0 Balance 0 - Medications Medications: Current Medications Acetaminophen (Tylenol 325mg Tab) 650 mg PO Q6H PRN PRN Reason: Pain, moderate (4-7) Last Admin: 12/01/16 22:35 Dose: 650 mg Sodium Chloride (Sodium Chloride 0.9%) 1,000 mls @ 100 mls/hr IV .Q10H LIZ Last Admin: 12/02/16 10:21 Dose: 100 mls/hr Lorazepam (Ativan) 2 mg IVP Q3H PRN; Protocol PRN Reason: Anxiety Morphine Sulfate (Morphine) 2 mg IVP Q6 PRN PRN Reason: Pain, severe (8-10) Last Admin: 12/02/16 08:47 Dose: 2 mg Pantoprazole Sodium (Protonix Inj) 40 mg IVP DAILY LIZ Last Admin: 12/02/16 10:21 Dose: 40 mg - Labs Labs: 12/02/16 06:44 12/02/16 06:44 PT 13.6 SECONDS (9.4-12.5) H 12/01/16 02:48 INR 1.23 (0.93-1.08) H 12/01/16 02:48 APTT 36.1 Seconds (25.1-36.5) 12/01/16 02:48 - Constitutional Appears: Well, Non-toxic, No Acute Distress - Extremities Exam Additional comments: RLE focused exam: VASC: DP/PT pulses palpable 2/4 b/l. Skin temperature warm to warm from proximal to distal. CFT < 3 seconds to all digits. Moderate non-pitting edema noted to medial and lateral malleoli NEURO: Epicritic and protective sensation grossly intact b/l DERM: Ecchymosis noted to medial and lateral malleoli of right foot. No open lesions, wounds, maceration, xerosis, abnormal pigmentation or abnormal growths noted otherwise. MSK: POP to medial and lateral malleoli of right leg. Patient unable to move foot at ankle joint. - Neurological Exam Neurological Exam: Alert, Awake, Oriented x3 - Psychiatric Exam Psychiatric exam: Normal Affect, Normal Mood Assessment and Plan - Assessment and Plan (Free Text) Assessment: 51 year old female with PMHx of alcohol abuse and ascites seen for multiple fractures of right fibula and tibia Plan: Patient seen and evaluated at bedside Charts, labs and vitals reviewed Tib/fib xrays: Acute transverse nondisplaced fractures in the medial and lateral malleoli with periarticular soft tissue swelling, worse laterally Ankle xray: Acute transverse nondisplaced fractures in the medial and lateral malleoli with periarticular soft tissue swelling, worse laterally Discussed plan with attending Dr. Villafuerte. No surgical intervention planned at this time. Will treat patient on an outpatient basis CT scan ordered Cast applied to right lower extremity Will continue to follow until discharge
--- NOTE | 2016-12-02 15:04 | CT ---
PROCEDURE: CT of the Right ankle without contrast HISTORY: Fractures of distal tibia and fibula, right leg COMPARISON: Right ankle 12/01/2016. TECHNIQUE: Contiguous axial images of the right hip were obtained. Coronal and sagittal reformats were generated. Total exam DLP: 160.24 mGy-cm. This CT exam was performed using one or more of the following dose reduction techniques: Automated exposure control, adjustment of the mA and/or kV according to patient size, and/or use of iterative reconstruction technique. FINDINGS: BONES: Extends close reduction with cast in place for distal tibial and fibular fractures, both of which appear comminuted with mild varus angulation at the fracture sites at the distal tibia and fibula. The tibial fracture is minimally impacted. The tibial fracture does not appear particular. Distal fibular fracture is borderline and articular in terms of the inferior horizontal fracture. A more cephalad hours under fractures appreciated nondisplaced proximal 2.5 cm cephalad to the lateral malleolar fracture more inferiorly. Ankle mortise appears intact grossly. No subluxation or dislocation appreciable with the tibiotalar joint appear intact grossly. Moderate local soft tissue edema surrounds the ankle. No underlying destructive bony lesion. SOFT TISSUES: As above. IMPRESSION: Comminuted impacted distal tibial fracture unchanged in appearance with mildly comminuted fibular fracture stable as well as compared to prior radiographs 12/01/2016. No dislocation or subluxation. Please see discussion above.
[2016-12-03 03:02] LABS: BASO # 0.01 K/mm3 (0.0-2.0); BASO % 0.2 % (0.0-3.0); EOS # 0.1 (0.0-0.7); EOS % 1.4 % (1.5-5.0); GRAN # 4.35 (1.4-6.5); GRAN % 76.2 % (50.0-68.0); HEMATOCRIT 27.8 % (36.0-48.0); LYMPH # 0.7 (1.2-3.4); LYMPH % 11.8 % (22.0-35.0); MEAN CELL VOLUME 81.3 fl (80.0-105.0); MEAN CORPUSCULAR HEMOGLOBIN 24.3 pg (25.0-35.0); MEAN CORPUSCULAR HGB CONC 29.9 g/dl (31.0-37.0); MEAN PLATELET VOLUME 9.4 fl (7.0-11.0); MONO # 0.6 (0.1-0.6); MONO % 10.4 % (1.0-6.0); RED CELL DISTRIBUTION WIDTH 18.1 % (11.5-14.5); WHITE BLOOD COUNT 5.7 10^3/ul (4.5-11.0)
[2016-12-03 03:07] LABS: ALB/GLOB RATIO 0.8 (1.1-1.8); ALKALINE PHOSPHATASE 99 U/L (38-126); ALT/SGPT 32 U/L (7-56); AST/SGOT 29 U/L (14-36); BILIRUBIN,TOTAL 0.5 mg/dL (0.2-1.3); BLOOD UREA NITROGEN 7 mg/dL (7-21); CALCIUM 7.7 mg/dL (8.4-10.5); CARBON DIOXIDE 23 mmol/L (21-33); CHLORIDE 111 mmol/L (95-110); GFR AFRICAN-AMERICAN > 60; GLUCOSE,RANDOM 84 mg/dL (70-110); POTASSIUM 4.6 mmol/L (3.6-5.0); SODIUM 139 mmol/L (132-148)
[2016-12-03] MEDS: Pantoprazole 40 mg EC Tab PO SCH (07:12)
[2016-12-03] MEDS: Morphine 4 mg/ml ISec IVP PRN ×3 (07:13→21:21)
--- NOTE | 2016-12-03 07:46 | CP.PCM.PN ---
<Crow Peacock - Last Filed: 12/03/16 11:15> Subjective - Date & Time of Evaluation Date of Evaluation: 12/03/16 Time of Evaluation: 07:20 - Subjective Subjective: patient was seen and examined at bedside. complains of pain in the RLE and is requesting pain meds. otherwise, the patient denies fevers, chills, chest pain, n/v/d, shortness of breath, abdominal pain, weakness, headaches, numbness/ tingling or other complaints. patient states that she has roughly 12-14 stairs to climb to get into her 2nd floor apt, and the first floor is not suitable because it doesn't have a bathroom. Objective - Vital Signs/Intake and Output Vital Signs (last 24 hours): Temp Pulse Resp BP Pulse Ox 98.1 F 94 H 18 104/72 99 12/03/16 07:17 12/03/16 07:17 12/03/16 07:17 12/03/16 07:17 12/03/16 07:17 Intake and Output: 12/03/16 12/03/16 06:59 18:59 Intake Total 360 Output Total 400 Balance -40 - Medications Medications: Current Medications Acetaminophen (Tylenol 325mg Tab) 650 mg PO Q6H PRN PRN Reason: Pain, moderate (4-7) Last Admin: 12/02/16 20:02 Dose: 650 mg Sodium Chloride (Sodium Chloride 0.9%) 1,000 mls @ 100 mls/hr IV .Q10H LIZ Last Admin: 12/02/16 20:56 Dose: 100 mls/hr Lorazepam (Ativan) 2 mg IVP Q3H PRN; Protocol PRN Reason: Anxiety Morphine Sulfate (Morphine) 2 mg IVP Q6 PRN PRN Reason: Pain, severe (8-10) Last Admin: 12/03/16 07:13 Dose: 2 mg Pantoprazole Sodium (Protonix Ec Tab) 40 mg PO 0600 LIZ Last Admin: 12/03/16 07:12 Dose: 40 mg - Labs Labs: 12/03/16 02:35 12/03/16 02:35 PT 13.6 SECONDS (9.4-12.5) H 12/01/16 02:48 INR 1.23 (0.93-1.08) H 12/01/16 02:48 APTT 36.1 Seconds (25.1-36.5) 12/01/16 02:48 - Constitutional Appears: Well, Non-toxic, No Acute Distress - Head Exam Head Exam: ATRAUMATIC, NORMAL INSPECTION, NORMOCEPHALIC - Eye Exam Eye Exam: EOMI, Normal appearance, PERRL Pupil Exam: NORMAL ACCOMODATION - ENT Exam ENT Exam: Mucous Membranes Moist, Normal Exam - Neck Exam Neck Exam: Full ROM - Respiratory Exam Respiratory Exam: Clear to Ausculation Bilateral, NORMAL BREATHING PATTERN. absent: Rales, Wheezes - Cardiovascular Exam Cardiovascular Exam: RRR, +S1, +S2. absent: Murmur - GI/Abdominal Exam GI & Abdominal Exam: Soft, Normal Bowel Sounds. absent: Distended, Tenderness - Extremities Exam Extremities Exam: Tenderness (RLE w/ small movements) Additional comments: RLE below knee cast - Back Exam Back Exam: NORMAL INSPECTION - Neurological Exam Neurological Exam: Alert, Awake, Oriented x3. absent: Motor Sensory Deficit - Psychiatric Exam Psychiatric exam: Normal Affect, Normal Mood - Skin Skin Exam: Erythema (facial diffuse), Normal Color, Warm Assessment and Plan - Assessment and Plan (Free Text) Assessment: 51 y/o female with PMH of liver cirrhosis, ETOH abuse who presented with right ankle pain after twisting it coming down the stairs found to have Acute transverse nondisplaced fractures in the medial and lateral malleoli. Ortho deemed it non-operative, pt placed in cast. Plan: 1. Distal R tib-fib fracture - Ortho consulted, rec non-operative - Below knee hard cast placed yesterday - Pain managed with Morphine - PT eval pending for disposition recommendations - SW eval pending for disposition recommendations - incentive spirometer ordered - OOB as tolerated, non-weightbearing on RLE 2. Anemia - stable, no signs of acute blood loss - continue to monitor H/H - transfuse Hgb< 7 3. Chronic pancreatitis - no medical management indicated at this time. 4. Alcohol abuse - counseled on EtOH cessation - monitor for withdrawal symptoms, currently none. - will consider CIWA protocol, Seizure protocol, Fall Protocols if patient begins to withdraw. GI & DVT PPX - Protonix - SCDs/heparin Patient was seen, examined and discussed with attending, Dr. Donovan Peacock <Colin Man B - Last Filed: 12/03/16 17:50> Objective - Vital Signs/Intake and Output Vital Signs (last 24 hours): Temp Pulse Resp BP Pulse Ox 98.4 F 97 H 19 93/62 L 97 12/03/16 17:35 12/03/16 17:35 12/03/16 17:35 12/03/16 17:35 12/03/16 17:35 Intake and Output: 12/03/16 12/03/16 06:59 18:59 Intake Total 360 Output Total 400 Balance -40 - Medications Medications: Current Medications Acetaminophen (Tylenol 325mg Tab) 650 mg PO Q6H PRN PRN Reason: Pain, moderate (4-7) Last Admin: 12/03/16 12:04 Dose: 650 mg Heparin Sodium (Porcine) (Heparin) 5,000 units SC Q12 LIZ PRN Reason: Protocol Sodium Chloride (Sodium Chloride 0.9%) 1,000 mls @ 100 mls/hr IV .Q10H LIZ Last Admin: 12/03/16 08:11 Dose: 100 mls/hr Lorazepam (Ativan) 2 mg IVP Q3H PRN; Protocol PRN Reason: Anxiety Morphine Sulfate (Morphine) 2 mg IVP Q6 PRN PRN Reason: Pain, severe (8-10) Last Admin: 12/03/16 14:33 Dose: 2 mg Pantoprazole Sodium (Protonix Ec Tab) 40 mg PO 0600 LIZ Last Admin: 12/03/16 07:12 Dose: 40 mg - Labs Labs: 12/03/16 02:35 12/03/16 02:35 PT 13.6 SECONDS (9.4-12.5) H 12/01/16 02:48 INR 1.23 (0.93-1.08) H 12/01/16 02:48 APTT 36.1 Seconds (25.1-36.5) 12/01/16 02:48 Attending/Attestation - Attestation I have personally seen and examined this patient.: Yes I have fully participated in the care of the patient.: Yes I have reviewed all pertinent clinical information, including history, physical exam and plan: Yes Notes (Text): I have seen and examined the patient at bedside. Agree with the above note with the following additions/ exceptions: Briefly this is 51 year old female with history of liver cirrhosis, alcohol abuse who was admitted for management of ankle fracture. Xray revealed acute transverse non displaced fracture in medial and lateral malleoli. Ortho consult appreciated. Posterior splint was reapplied. Ortho recommended to wait for atleast 10 days for swelling to go down and follow up with ortho as an outpatient. Discussed with SW to arrange for RONAL. Patient is not going thru withdrawal. Alcohol cessation counseling provided. Upon discharge patient will follow up with Dr Gillis. Dr Colin Man
[2016-12-03] MEDS: Sodium Chloride 0.9% 1,000 ML IV SCH (08:11)
[2016-12-04] MEDS: Sodium Chloride 0.9% 1,000 ML IV SCH (02:22)
[2016-12-04] MEDS: Pantoprazole 40 mg EC Tab PO SCH (05:42)
[2016-12-04] MEDS: Morphine 4 mg/ml ISec IVP PRN ×2 (05:50→14:10)
[2016-12-04 06:56] LABS: EOS # 0.1 (0.0-0.7); EOS % 2.8 % (1.5-5.0); GRAN # 2.41 (1.4-6.5); GRAN % 75.3 % (50.0-68.0); HEMATOCRIT 25.4 % (36.0-48.0); LYMPH # 0.3 (1.2-3.4); LYMPH % 9.7 % (22.0-35.0); MEAN CELL VOLUME 80.9 fl (80.0-105.0); MEAN CORPUSCULAR HEMOGLOBIN 23.9 pg (25.0-35.0); MEAN CORPUSCULAR HGB CONC 29.5 g/dl (31.0-37.0); MEAN PLATELET VOLUME 9.5 fl (7.0-11.0); MONO # 0.4 (0.1-0.6); MONO % 12.2 % (1.0-6.0); RED CELL DISTRIBUTION WIDTH 18.2 % (11.5-14.5); WHITE BLOOD COUNT 3.2 10^3/ul (4.5-11.0)
[2016-12-04 07:10] LABS: ALB/GLOB RATIO 0.7 (1.1-1.8); ALKALINE PHOSPHATASE 75 U/L (38-126); ALT/SGPT 27 U/L (7-56); AST/SGOT 22 U/L (14-36); BILIRUBIN,TOTAL 0.4 mg/dL (0.2-1.3); BLOOD UREA NITROGEN 4 mg/dL (7-21); CALCIUM 7.2 mg/dL (8.4-10.5); CARBON DIOXIDE 27 mmol/L (21-33); CHLORIDE 111 mmol/L (98-107); GFR AFRICAN-AMERICAN > 60; GLUCOSE,RANDOM 105 mg/dL (70-110); POTASSIUM 3.2 mmol/L (3.6-5.0); SODIUM 141 mmol/L (132-148); TOTAL PROTEIN 4.6 g/dL (5.8-8.3)
--- NOTE | 2016-12-04 07:54 | CP.PCM.PN ---
<Crow Peacock - Last Filed: 12/04/16 14:02> Subjective - Date & Time of Evaluation Date of Evaluation: 12/04/16 Time of Evaluation: 07:20 - Subjective Subjective: patient was seen and examined bedside. states that her pain is controlled well except when she hangs the foot or has to get up to use the restroom. patient denies cp, cough, sob, fevers/chills, n/v/d/constipation, abdominal pain, numbness/tingling, weakness. Objective - Vital Signs/Intake and Output Vital Signs (last 24 hours): Temp Pulse Resp BP Pulse Ox 98.4 F 97 H 19 93/62 L 97 12/03/16 17:35 12/03/16 17:35 12/03/16 17:35 12/03/16 17:35 12/03/16 17:35 Intake and Output: 12/04/16 12/04/16 06:59 18:59 Intake Total 1080 Output Total 500 Balance 580 - Medications Medications: Current Medications Acetaminophen (Tylenol 325mg Tab) 650 mg PO Q6H PRN PRN Reason: Pain, moderate (4-7) Last Admin: 12/04/16 02:22 Dose: 650 mg Heparin Sodium (Porcine) (Heparin) 5,000 units SC Q12 LIZ PRN Reason: Protocol Last Admin: 12/03/16 21:21 Dose: 5,000 units Sodium Chloride (Sodium Chloride 0.9%) 1,000 mls @ 100 mls/hr IV .Q10H [facility] Last Admin: 12/04/16 02:22 Dose: 100 mls/hr Lorazepam (Ativan) 2 mg IVP Q3H PRN; Protocol PRN Reason: Anxiety Morphine Sulfate (Morphine) 2 mg IVP Q6 PRN PRN Reason: Pain, severe (8-10) Last Admin: 12/04/16 05:50 Dose: 2 mg Pantoprazole Sodium (Protonix Ec Tab) 40 mg PO 0600 [facility] Last Admin: 12/04/16 05:42 Dose: 40 mg - Labs Labs: 12/03/16 02:35 12/04/16 06:45 PT 13.6 SECONDS (9.4-12.5) H 12/01/16 02:48 INR 1.23 (0.93-1.08) H 12/01/16 02:48 APTT 36.1 Seconds (25.1-36.5) 12/01/16 02:48 - Additional Findings Additional findings: - Constitutional Appears: Well, Non-toxic, No Acute Distress - Head Exam Head Exam: ATRAUMATIC, NORMAL INSPECTION, NORMOCEPHALIC - Eye Exam Eye Exam: EOMI, Normal appearance, PERRL Pupil Exam: NORMAL ACCOMODATION - ENT Exam ENT Exam: Mucous Membranes Moist, Normal Exam - Neck Exam Neck Exam: Full ROM - Respiratory Exam Respiratory Exam: Clear to Ausculation Bilateral, NORMAL BREATHING PATTERN. absent: Rales, Wheezes - Cardiovascular Exam Cardiovascular Exam: RRR, +S1, +S2. absent: Murmur - GI/Abdominal Exam GI & Abdominal Exam: Soft, Normal Bowel Sounds. absent: Distended, Tenderness - Extremities Exam Extremities Exam: Tenderness (RLE w/ small movements) Additional comments: RLE below knee cast - Back Exam Back Exam: NORMAL INSPECTION - Neurological Exam Neurological Exam: Alert, Awake, Oriented x3. absent: Motor Sensory Deficit - Psychiatric Exam Psychiatric exam: Normal Affect, Normal Mood - Skin Skin Exam: Erythema (facial diffuse), Normal Color, Warm Assessment and Plan - Assessment and Plan (Free Text) Assessment: 51 y/o female with PMH of liver cirrhosis, ETOH abuse who presented with right ankle pain after twisting it coming down the stairs found to have Acute transverse nondisplaced fractures in the medial and lateral malleoli. Ortho deemed it non-operative, pt placed in cast. Plan: 1. Distal R tib-fib fracture - Ortho consulted, rec non-operative - Below knee hard cast - Pain managed with Morphine - PT eval rec RONAL; continue PT - SW eval pending insurance authorization - incentive spirometer ordered - OOB as tolerated, non-weightbearing on RLE 2. Anemia - stable, no signs of acute blood loss - continue to monitor H/H - transfuse Hgb< 7 3. Chronic pancreatitis - no medical management indicated at this time. 4. Alcohol abuse - counseled on EtOH cessation - monitor for withdrawal symptoms, currently none GI & DVT PPX - Protonix - SCDs/heparin Dispo: RONAL pending insurance authorization Patient was seen, examined and discussed with attending, Dr. Donovan Peacock <Colin Man - Last Filed: 12/04/16 15:03> Objective - Vital Signs/Intake and Output Vital Signs (last 24 hours): Temp Pulse Resp BP Pulse Ox 98.0 F 85 20 104/64 94 L 12/04/16 07:30 12/04/16 07:30 12/04/16 07:30 12/04/16 07:30 12/04/16 07:30 Intake and Output: 12/04/16 12/04/16 06:59 18:59 Intake Total 1080 Output Total 500 Balance 580 - Medications Medications: Current Medications Acetaminophen (Tylenol 325mg Tab) 650 mg PO Q6H PRN PRN Reason: Pain, moderate (4-7) Last Admin: 12/04/16 10:06 Dose: 650 mg Heparin Sodium (Porcine) (Heparin) 5,000 units SC Q12 LIZ PRN Reason: Protocol Last Admin: 12/04/16 09:46 Dose: 5,000 units Sodium Chloride (Sodium Chloride 0.9%) 1,000 mls @ 100 mls/hr IV .Q10H [facility] Last Admin: 12/04/16 02:22 Dose: 100 mls/hr Lorazepam (Ativan) 2 mg IVP Q3H PRN; Protocol PRN Reason: Anxiety Morphine Sulfate (Morphine) 2 mg IVP Q6 PRN PRN Reason: Pain, severe (8-10) Last Admin: 12/04/16 14:10 Dose: 2 mg Pantoprazole Sodium (Protonix Ec Tab) 40 mg PO 0600 [facility] Last Admin: 12/04/16 05:42 Dose: 40 mg - Labs Labs: 12/04/16 06:45 12/04/16 06:45 PT 13.6 SECONDS (9.4-12.5) H 12/01/16 02:48 INR 1.23 (0.93-1.08) H 12/01/16 02:48 APTT 36.1 Seconds (25.1-36.5) 12/01/16 02:48 Attending/Attestation - Attestation I have personally seen and examined this patient.: Yes I have fully participated in the care of the patient.: Yes I have reviewed all pertinent clinical information, including history, physical exam and plan: Yes Notes (Text): I have seen and examined the patient at bedside. Agree with the above note with the following additions/ exceptions: Briefly this is 51 year old female with history of liver cirrhosis, alcohol abuse who was admitted for management of ankle fracture. Xray revealed acute transverse non displaced fracture in medial and lateral malleoli. Ortho consult appreciated. Posterior splint was reapplied. Ortho recommended to wait for atleast 10 days for swelling to go down and follow up with ortho as an outpatient. Discussed with SW to arrange for RONAL. Patient is not going thru withdrawal. Alcohol cessation counseling provided. Anemia is stable. Upon discharge patient will follow up with Dr Gillis. Dr Colin Man
[2016-12-04] MEDS ORDERED: Potassium Chloride 20 mEq ER Tab PO ONE (10:59)
--- NOTE | 2016-12-04 15:52 | CP.PCM.DIS ---
<Crow Peacock - Last Filed: 12/04/16 15:44> Provider - Provider Date of Admission: 12/01/16 02:11 Attending physician: Colin Man MD Primary care physician: Navid Gillis MD Time Spent in preparation of Discharge (in minutes): 45 Hospital Course - Lab Results Lab Results: Most Recent Lab Values WBC 3.2 10^3/ul (4.5-11.0) L D 12/04/16 06:45 RBC 3.14 10^6/uL (3.5-6.1) L 12/04/16 06:45 Hgb 7.5 g/dL (12.0-16.0) L 12/04/16 06:45 Hct 25.4 % (36.0-48.0) L 12/04/16 06:45 MCV 80.9 fl (80.0-105.0) 12/04/16 06:45 MCH 23.9 pg (25.0-35.0) L 12/04/16 06:45 MCHC 29.5 g/dl (31.0-37.0) L 12/04/16 06:45 RDW 18.2 % (11.5-14.5) H 12/04/16 06:45 Plt Count 94 10^3/uL (120.0-450.0) L 12/04/16 06:45 MPV 9.5 fl (7.0-11.0) 12/04/16 06:45 Gran % 75.3 % (50.0-68.0) H 12/04/16 06:45 Lymph % (Auto) 9.7 % (22.0-35.0) L 12/04/16 06:45 [place] % (Auto) 12.2 % (1.0-6.0) H 12/04/16 06:45 Eos % (Auto) 2.8 % (1.5-5.0) 12/04/16 06:45 Baso % (Auto) 0.0 % (0.0-3.0) 12/04/16 06:45 Gran # 2.41 (1.4-6.5) 12/04/16 06:45 Lymph # 0.3 (1.2-3.4) L 12/04/16 06:45 [place] # 0.4 (0.1-0.6) 12/04/16 06:45 Eos # 0.1 (0.0-0.7) 12/04/16 06:45 Baso # 0.00 K/mm3 (0.0-2.0) 12/04/16 06:45 PT 13.6 SECONDS (9.4-12.5) H 12/01/16 02:48 INR 1.23 (0.93-1.08) H 12/01/16 02:48 APTT 36.1 Seconds (25.1-36.5) 12/01/16 02:48 Sodium 141 mmol/L (132-148) 12/04/16 06:45 Potassium 3.2 mmol/L (3.6-5.0) L 12/04/16 06:45 Chloride 111 mmol/L (98-107) H 12/04/16 06:45 Carbon Dioxide 27 mmol/L (21-33) 12/04/16 06:45 Anion Gap 6 (10-20) L 12/04/16 06:45 BUN 4 mg/dL (7-21) L 12/04/16 06:45 Creatinine 0.6 mg/dL (0.7-1.2) L 12/04/16 06:45 Est GFR ( Amer) > 60 12/04/16 06:45 Est GFR (Non-Af Amer) > 60 12/04/16 06:45 Random Glucose 105 mg/dL (70-110) 12/04/16 06:45 Calcium 7.2 mg/dL (8.4-10.5) L 12/04/16 06:45 Total Bilirubin 0.4 mg/dL (0.2-1.3) 12/04/16 06:45 AST 22 U/L (14-36) 12/04/16 06:45 ALT 27 U/L (7-56) 12/04/16 06:45 Alkaline Phosphatase 75 U/L (38-126) 12/04/16 06:45 Total Protein 4.6 g/dL (5.8-8.3) L 12/04/16 06:45 Albumin 2.0 g/dL (3.0-4.8) L 12/04/16 06:45 Globulin 2.7 gm/dL 12/04/16 06:45 Albumin/Globulin Ratio 0.7 (1.1-1.8) L 12/04/16 06:45 Urine Color Yellow (YELLOW) 12/01/16 03:00 Urine Appearance Clear (CLEAR) 12/01/16 03:00 Urine pH 6.0 (4.7-8.0) 12/01/16 03:00 Ur Specific [place] <= 1.005 (1.005-1.035) 12/01/16 03:00 Urine Protein Negative mg/dL (<30 mg/dL) 12/01/16 03:00 Urine Glucose (UA) Negative mg/dL (NEGATIVE) 12/01/16 03:00 Urine Ketones Negative mg/dL (NEGATIVE) 12/01/16 03:00 Urine Blood Negative (NEGATIVE) 12/01/16 03:00 Urine Nitrate Negative (NEGATIVE) 12/01/16 03:00 Urine Bilirubin Negative (NEGATIVE) 12/01/16 03:00 Urine Urobilinogen 0.2 E.U./dL (<1 E.U./dL) 12/01/16 03:00 Ur Leukocyte Esterase Negative [place]/uL (NEGATIVE) 12/01/16 03:00 - Hospital Course Hospital Course: Ms. Vanessa is a 51 yo F with significant PMH for alcohol abuse and cirrhosis, who reports tripping and twisting her right ankle coming down the last two stairs. The patient states the pain initially was an 8/10 with no radiation. The patient denies syncopal episodes, lightheadedness, dizziness or any other inciting cause. The patient denies hitting her head or any other injury. Tib/ fib and ankle xrays showed acute transverse nondisplaced fractures in the RIGHT medial and lateral malleoli with periarticular soft tissue swelling, worse laterally. Patient was transferred to the floors and managed. Ortho was consulted and recommend non-operative management; hard cast was placed below knee. Pain was managed by Morphine. PT evaluated the patient and recommended RONAL. SW was consulted for disposition. Patient was accepted to [facility] and rehab center. Medically stable for transportation, and offers no complaints other than mild pain when the leg is hanging off the bed or when she steps on it ; she is advised that her RLE is non weight-bearing. Plan is to receive rehab and then be discharge to /u with Dr. Pham (Ortho) as outpatient. - Date & Time of H&P Date of H&P: 12/01/16 Time of H&P: 02:38 Discharge Exam - Additional Findings Additional findings: - Constitutional Appears: Well, Non-toxic, No Acute Distress - Head Exam Head Exam: ATRAUMATIC, NORMAL INSPECTION, NORMOCEPHALIC - Eye Exam Eye Exam: EOMI, Normal appearance, PERRL Pupil Exam: NORMAL ACCOMODATION - ENT Exam ENT Exam: Mucous Membranes Moist, Normal Exam - Neck Exam Neck Exam: Full ROM - Respiratory Exam Respiratory Exam: Clear to Ausculation Bilateral, NORMAL BREATHING PATTERN. absent: Rales, Wheezes - Cardiovascular Exam Cardiovascular Exam: RRR, +S1, +S2. absent: Murmur - GI/Abdominal Exam GI & Abdominal Exam: Soft, Normal Bowel Sounds. absent: Distended, Tenderness - Extremities Exam Extremities Exam: Tenderness (RLE w/ small movements) Additional comments: RLE below knee cast - Back Exam Back Exam: NORMAL INSPECTION - Neurological Exam Neurological Exam: Alert, Awake, Oriented x3. absent: Motor Sensory Deficit - Psychiatric Exam Psychiatric exam: Normal Affect, Normal Mood - Skin Skin Exam: Erythema (facial diffuse), Normal Color, Warm Discharge Plan - Follow Up Plan Condition: STABLE Disposition: REHAB FACILITY/REHAB UNIT Instructions: Cast Care (DC), Leg Fracture (DC) Additional Instructions: - please f/u with Dr. Pham (Ortho) after rehab to manage your fracture - please cont home meds - please f/u PMD after discharge Referrals: Navid Gillis MD [Primary Care Provider] - Mikael Pham MD [Medical Doctor] - <Colin Man - Last Filed: 12/04/16 16:12> Provider - Provider Date of Admission: 12/01/16 02:11 Attending physician: Colin Man MD Primary care physician: Navid Gillis MD Hospital Course - Lab Results Lab Results: Most Recent Lab Values WBC 3.2 10^3/ul (4.5-11.0) L D 12/04/16 06:45 RBC 3.14 10^6/uL (3.5-6.1) L 12/04/16 06:45 Hgb 7.5 g/dL (12.0-16.0) L 12/04/16 06:45 Hct 25.4 % (36.0-48.0) L 12/04/16 06:45 MCV 80.9 fl (80.0-105.0) 12/04/16 06:45 MCH 23.9 pg (25.0-35.0) L 12/04/16 06:45 MCHC 29.5 g/dl (31.0-37.0) L 12/04/16 06:45 RDW 18.2 % (11.5-14.5) H 12/04/16 06:45 Plt Count 94 10^3/uL (120.0-450.0) L 12/04/16 06:45 MPV 9.5 fl (7.0-11.0) 12/04/16 06:45 Gran % 75.3 % (50.0-68.0) H 12/04/16 06:45 Lymph % (Auto) 9.7 % (22.0-35.0) L 12/04/16 06:45 [place] % (Auto) 12.2 % (1.0-6.0) H 12/04/16 06:45 Eos % (Auto) 2.8 % (1.5-5.0) 12/04/16 06:45 Baso % (Auto) 0.0 % (0.0-3.0) 12/04/16 06:45 Gran # 2.41 (1.4-6.5) 12/04/16 06:45 Lymph # 0.3 (1.2-3.4) L 12/04/16 06:45 [place] # 0.4 (0.1-0.6) 12/04/16 06:45 Eos # 0.1 (0.0-0.7) 12/04/16 06:45 Baso # 0.00 K/mm3 (0.0-2.0) 12/04/16 06:45 PT 13.6 SECONDS (9.4-12.5) H 12/01/16 02:48 INR 1.23 (0.93-1.08) H 12/01/16 02:48 APTT 36.1 Seconds (25.1-36.5) 12/01/16 02:48 Sodium 141 mmol/L (132-148) 12/04/16 06:45 Potassium 3.2 mmol/L (3.6-5.0) L 12/04/16 06:45 Chloride 111 mmol/L (98-107) H 12/04/16 06:45 Carbon Dioxide 27 mmol/L (21-33) 12/04/16 06:45 Anion Gap 6 (10-20) L 12/04/16 06:45 BUN 4 mg/dL (7-21) L 12/04/16 06:45 Creatinine 0.6 mg/dL (0.7-1.2) L 12/04/16 06:45 Est GFR ( Amer) > 60 12/04/16 06:45 Est GFR (Non-Af Amer) > 60 12/04/16 06:45 Random Glucose 105 mg/dL (70-110) 12/04/16 06:45 Calcium 7.2 mg/dL (8.4-10.5) L 12/04/16 06:45 Total Bilirubin 0.4 mg/dL (0.2-1.3) 12/04/16 06:45 AST 22 U/L (14-36) 12/04/16 06:45 ALT 27 U/L (7-56) 12/04/16 06:45 Alkaline Phosphatase 75 U/L (38-126) 12/04/16 06:45 Total Protein 4.6 g/dL (5.8-8.3) L 12/04/16 06:45 Albumin 2.0 g/dL (3.0-4.8) L 12/04/16 06:45 Globulin 2.7 gm/dL 12/04/16 06:45 Albumin/Globulin Ratio 0.7 (1.1-1.8) L 12/04/16 06:45 Urine Color Yellow (YELLOW) 12/01/16 03:00 Urine Appearance Clear (CLEAR) 12/01/16 03:00 Urine pH 6.0 (4.7-8.0) 12/01/16 03:00 Ur Specific [place] <= 1.005 (1.005-1.035) 12/01/16 03:00 Urine Protein Negative mg/dL (<30 mg/dL) 12/01/16 03:00 Urine Glucose (UA) Negative mg/dL (NEGATIVE) 12/01/16 03:00 Urine Ketones Negative mg/dL (NEGATIVE) 12/01/16 03:00 Urine Blood Negative (NEGATIVE) 12/01/16 03:00 Urine Nitrate Negative (NEGATIVE) 12/01/16 03:00 Urine Bilirubin Negative (NEGATIVE) 12/01/16 03:00 Urine Urobilinogen 0.2 E.U./dL (<1 E.U./dL) 12/01/16 03:00 Ur Leukocyte Esterase Negative [place]/uL (NEGATIVE) 12/01/16 03:00 Attending/Attestation - Attestation I have personally seen and examined this patient.: Yes I have fully participated in the care of the patient.: Yes I have reviewed all pertinent clinical information, including history, physical exam and plan: Yes Notes (Text): I have seen and examined the patient at bedside. Agree with the above note with the following additions/ exceptions: Briefly this is 51 year old female with history of liver cirrhosis, alcohol abuse who was admitted for management of ankle fracture. Xray revealed acute transverse non displaced fracture in medial and lateral malleoli. Ortho consult appreciated. Posterior splint was reapplied. Ortho recommended to wait for atleast 10 days for swelling to go down and follow up with ortho as an outpatient. Discussed with to arrange for RONAL. Patient will be going to [facility]. Patient is not going thru withdrawal. Alcohol cessation counseling provided. Anemia is stable. Upon discharge patient will follow up with Dr Gillis. Dr Colin Man
[2016-12-04 16:33] VITALS: BP 111/71; PULSE 92; RESP 18; TEMP 97.5; O2SAT 98
== END 2016-12-04 21:00 | DRG 253 ==
LOC: ED 00:10 → ERH 02:11 → 5RNO 04:20 → 5RSO 16:12
PROVIDERS: ADMIT Internal Medicine; ATTEND Hospitalist
DX: S82.64XA Nondisplaced fracture of lateral malleolus of right fibula, initial encounter for closed fracture (principal); K70.31 Alcoholic cirrhosis of liver with ascites; K86.1 Other chronic pancreatitis; S82.54XA Nondisplaced fracture of medial malleolus of right tibia, initial encounter for closed fracture; F10.10 Alcohol abuse, uncomplicated; F41.9 Anxiety disorder, unspecified; F32.9 Major depressive disorder, single episode, unspecified; D64.9 Anemia, unspecified; K42.9 Umbilical hernia without obstruction or gangrene; W10.8XXA Fall (on) (from) other stairs and steps, initial encounter; Y92.008 Other place in unspecified non-institutional (private) residence as the place of occurrence of the external cause; Y93.01 Activity, walking, marching and hiking; Y99.9 Unspecified external cause status

== ENCOUNTER 2017-11-01 21:03 | Inpatient (IN) | payer OTHER ==
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
[2017-11-01] MEDS ORDERED: Sodium Chloride 0.9% 1,000 ML IV SCH (21:45)
[2017-11-01 22:55] LABS: INR 1.74; PARTIAL THROMBOPLASTIN TIME 26.5 Seconds (25.1-36.5); PROTHROMBIN TIME 20.1 SECONDS (9.4-12.5)
[2017-11-01 22:56] LABS: ALB/GLOB RATIO 0.9 (1.1-1.8); ALBUMIN 3.1 g/dL (3.0-4.8); ALT/SGPT 38 U/L (7-56); AST/SGOT 49 U/L (14-36); BLOOD UREA NITROGEN 9 mg/dL (7-21); CALCIUM 8.5 mg/dL (8.4-10.5); GFR NON-AFRICAN AMERICAN > 60; LIPASE 67 U/L (23-300)
[2017-11-01 23:08] LABS: TROPONIN I < 0.01 ng/mL
[2017-11-01 23:53] LABS: HEMOGLOBIN 11.6 g/dL (12.0-16.0); MEAN CELL VOLUME 94.4 fl (80.0-105.0); MEAN CORPUSCULAR HEMOGLOBIN 32.7 pg (25.0-35.0); MEAN CORPUSCULAR HGB CONC 34.6 g/dl (31.0-37.0); MEAN PLATELET VOLUME 10.5 fl (7.0-11.0); RBC 3.55 10^6/uL (3.5-6.1); RED CELL DISTRIBUTION WIDTH 11.7 % (11.5-14.5); WHITE BLOOD COUNT 11.6 10^3/ul (4.5-11.0)
[2017-11-01 23:58] LABS: PLATELET COUNT 42 10^3/uL (120.0-450.0)
[2017-11-02 03:02] LABS: BASO # 0.01 K/mm3 (0.0-2.0); BASO % 0.1 % (0.0-3.0); EOS % 0.1 % (1.5-5.0); GRAN # 10.66 (1.4-6.5); GRAN % 88.5 % (50.0-68.0); HEMOGLOBIN 11.3 g/dL (12.0-16.0); LYMPH # 0.6 (1.2-3.4); MEAN CELL VOLUME 94.2 fl (80.0-105.0); MEAN CORPUSCULAR HEMOGLOBIN 32.7 pg (25.0-35.0); MEAN CORPUSCULAR HGB CONC 34.7 g/dl (31.0-37.0); MEAN PLATELET VOLUME 10.3 fl (7.0-11.0); MONO # 0.8 (0.1-0.6); MONO % 6.3 % (1.0-6.0); RBC 3.46 10^6/uL (3.5-6.1); RED CELL DISTRIBUTION WIDTH 11.8 % (11.5-14.5)
[2017-11-02 03:07] LABS: PLATELET COUNT 41 10^3/uL (120.0-450.0)
[2017-11-02 03:09] VITALS: BMI 14.6
[2017-11-02 03:10] LABS: BLOOD UREA NITROGEN 8 mg/dL (7-21); GFR NON-AFRICAN AMERICAN > 60
[2017-11-02] MEDS: Sodium Chloride 0.9% 1,000 ML IV SCH ×2 (03:43→20:37)
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
[2017-11-02 06:16] LABS: BAND 6 % (0-2); LYMPHOCYTE 5 % (22.0-35.0); MONOCYTE 5 % (1.0-6.0); NEUTROPHIL 84 % (50.0-70.0); PLATELET ESTIMATE LOW (NORMAL)
--- NOTE | 2017-11-02 08:35 | RAD ---
Date of service: 11/01/2017 PROCEDURE: CHEST RADIOGRAPH, 1 VIEW HISTORY: weak COMPARISON: 01/01/2017 FINDINGS: LUNGS: Clear. PLEURA: No pneumothorax or pleural fluid seen. CARDIOVASCULAR: No radiographic findings to suggest acute or significant cardiovascular disease. OSSEOUS STRUCTURES: No significant abnormalities. VISUALIZED UPPER ABDOMEN: Normal. OTHER FINDINGS: None. IMPRESSION: No active disease. No acute/significant interval changes.
--- NOTE | 2017-11-02 08:40 | CT ---
Date of service: 11/02/2017 PROCEDURE: CT HEAD WITHOUT CONTRAST. HISTORY: injury COMPARISON: None available. TECHNIQUE: Axial computed tomography images were obtained through the head/brain without intravenous contrast. Supplemental Coronal and Sagittal projectections created and reviewed. Radiation dose: Total exam DLP = 629.51 mGy-cm. This CT exam was performed using one or more of the following dose reduction techniques: Automated exposure control, adjustment of the mA and/or kV according to patient size, and/or use of iterative reconstruction technique. FINDINGS: HEMORRHAGE: No intracranial hemorrhage. BRAIN: No mass effect or edema. Cortical and cerebellar atrophy, periventricular small vessel disease. VENTRICLES: Unremarkable. No hydrocephalus. CALVARIUM: Unremarkable. PARANASAL SINUSES: Unremarkable as visualized. No significant inflammatory changes. MASTOID AIR CELLS: Unremarkable as visualized. No inflammatory changes. OTHER FINDINGS: None. IMPRESSION: No acute intracranial abnormalities. No significant findings to account for the clinical presentation. Concordant results (preliminary interpretation) provided by [facility]. Procedure Completed: 02:00 Preliminary ([facility]) Report: Dictated and Authenticated: 02:28 Final Interpretation: 08:38. November 02, 2017.
[2017-11-02 13:08] LABS: BASO # 0.01 K/mm3 (0.0-2.0); BASO % 0.1 % (0.0-3.0); EOS % 0.2 % (1.5-5.0); GRAN # 11.22 (1.4-6.5); GRAN % 89.7 % (50.0-68.0); HEMOGLOBIN 10.8 g/dL (12.0-16.0); LYMPH # 0.5 (1.2-3.4); LYMPH % 4.2 % (22.0-35.0); MEAN CELL VOLUME 95.2 fl (80.0-105.0); MEAN CORPUSCULAR HEMOGLOBIN 32.4 pg (25.0-35.0); MEAN CORPUSCULAR HGB CONC 34.1 g/dl (31.0-37.0); MONO # 0.7 (0.1-0.6); MONO % 5.8 % (1.0-6.0); RBC 3.33 10^6/uL (3.5-6.1); RED CELL DISTRIBUTION WIDTH 11.9 % (11.5-14.5); WHITE BLOOD COUNT 12.5 10^3/ul (4.5-11.0)
[2017-11-02 13:24] LABS: BLOOD UREA NITROGEN 7 mg/dL (7-21); CALCIUM 8.3 mg/dL (8.4-10.5); GFR NON-AFRICAN AMERICAN > 60
[2017-11-02 13:26] LABS: PLATELET COUNT 34 10^3/uL (120.0-450.0); PLATELET ESTIMATE LOW (NORMAL)
[2017-11-02] MEDS ORDERED: Acetaminophen 650mg/20.3ml solution UD PO PRN (15:05)
[2017-11-02] MEDS: Potassium Chl 40mEq & D5W 1,000 ML IV SCH ×2 (15:36→21:48)
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
[2017-11-02 18:01] LABS: EOS % 0.4 % (1.5-5.0); GRAN # 8.97 (1.4-6.5); GRAN % 88.6 % (50.0-68.0); HEMOGLOBIN 9.7 g/dL (12.0-16.0); LYMPH # 0.5 (1.2-3.4); LYMPH % 5.1 % (22.0-35.0); MEAN CELL VOLUME 95.5 fl (80.0-105.0); MEAN CORPUSCULAR HEMOGLOBIN 33.2 pg (25.0-35.0); MEAN CORPUSCULAR HGB CONC 34.8 g/dl (31.0-37.0); MEAN PLATELET VOLUME 10.4 fl (7.0-11.0); MONO # 0.6 (0.1-0.6); MONO % 5.9 % (1.0-6.0); RBC 2.92 10^6/uL (3.5-6.1); RED CELL DISTRIBUTION WIDTH 11.9 % (11.5-14.5); WHITE BLOOD COUNT 10.1 10^3/ul (4.5-11.0)
[2017-11-02 18:13] LABS: BLOOD UREA NITROGEN 6 mg/dL (7-21); CALCIUM 8.1 mg/dL (8.4-10.5); GFR NON-AFRICAN AMERICAN > 60
[2017-11-02 18:19] LABS: PLATELET COUNT 33 10^3/uL (120.0-450.0)
[2017-11-02 18:20] LABS: PLATELET COUNT MANUAL 33 K/mm3 (120-450); PLATELET ESTIMATE LOW (NORMAL)
--- NOTE | 2017-11-02 19:52 | CARD ---
APPROVED REPORT Date of service: 11/01/2017 EKG Measurement Heart [id number] <Conclusion> Sinus tachycardia Nonspecific ST abnormality Abnormal ECG
[2017-11-02 21:27] LABS: BLOOD UREA NITROGEN 6 mg/dL (7-21); CALCIUM 8.1 mg/dL (8.4-10.5); GFR NON-AFRICAN AMERICAN > 60
[2017-11-03] MEDS ORDERED: Sodium Chloride 0.9% 1,000 ML IV SCH (02:15)
[2017-11-03 09:04] LABS: BASO # 0.01 K/mm3 (0.0-2.0); BASO % 0.1 % (0.0-3.0); EOS % 0.5 % (1.5-5.0); GRAN # 7.71 (1.4-6.5); GRAN % 88.4 % (50.0-68.0); HEMOGLOBIN 10.1 g/dL (12.0-16.0); LYMPH # 0.3 (1.2-3.4); LYMPH % 3.9 % (22.0-35.0); MEAN CELL VOLUME 95.1 fl (80.0-105.0); MEAN CORPUSCULAR HEMOGLOBIN 32.8 pg (25.0-35.0); MEAN CORPUSCULAR HGB CONC 34.5 g/dl (31.0-37.0); MEAN PLATELET VOLUME 10.7 fl (7.0-11.0); MONO # 0.6 (0.1-0.6); MONO % 7.1 % (1.0-6.0); RBC 3.08 10^6/uL (3.5-6.1); RED CELL DISTRIBUTION WIDTH 11.9 % (11.5-14.5); WHITE BLOOD COUNT 8.7 10^3/ul (4.5-11.0)
[2017-11-03 09:14] LABS: PLATELET COUNT 32 10^3/uL (120.0-450.0)
[2017-11-03 09:16] LABS: INR 2.06; PARTIAL THROMBOPLASTIN TIME 30.9 Seconds (25.1-36.5); PROTHROMBIN TIME 24.1 SECONDS (9.4-12.5)
[2017-11-03 09:30] LABS: ALB/GLOB RATIO 0.8 (1.1-1.8); ALBUMIN 2.5 g/dL (3.0-4.8); ALT/SGPT 37 U/L (7-56); AST/SGOT 40 U/L (14-36); BLOOD UREA NITROGEN 3 mg/dL (7-21); CALCIUM 8.2 mg/dL (8.4-10.5); GFR NON-AFRICAN AMERICAN > 60
--- NOTE | 2017-11-03 09:54 | CT ---
Date of service: 11/03/2017 PROCEDURE: CT HEAD WITHOUT CONTRAST. HISTORY: evaluation COMPARISON: Noncontrast head CT performed 11/02/17 TECHNIQUE: Axial computed tomography images were obtained through the head/brain without intravenous contrast. Radiation dose: Total exam DLP = 778.21 mGy-cm. This CT exam was performed using one or more of the following dose reduction techniques: Automated exposure control, adjustment of the mA and/or kV according to patient size, and/or use of iterative reconstruction technique. FINDINGS: Mild streak artifact obscures evaluation of the skullbase. HEMORRHAGE: No intracranial hemorrhage. BRAIN: Diffuse atrophy with prominence of the ventricles and sulci noted. No mass effect or edema. Intracranial atherosclerosis. Mild scattered white matter hypodensities, which are nonspecific, but often seen with chronic microvascular ischemic disease. Please note that MRI with diffusion imaging is more sensitive in the detection of acute ischemic event. VENTRICLES: No hydrocephalus. CALVARIUM: Unremarkable. PARANASAL SINUSES: Unremarkable as visualized. No significant inflammatory changes. MASTOID AIR CELLS: Unremarkable as visualized. No inflammatory changes. OTHER FINDINGS: None. IMPRESSION: No acute intracranial pathology appreciated. Findings as above.
[2017-11-03] MEDS ORDERED: Sodium Phosphate 15 MMOLE in Sodium Chloride 0.9% 250 ML IVPB ONE (11:47)
--- NOTE | 2017-11-03 11:50 | CT ---
Date of service: 2017-11-03 09:15:56 PROCEDURE: CT neck and chest without contrast HISTORY: evaluation for mass COMPARISON: None available. TECHNIQUE: Contrast dose: 0 Radiation dose: Total exam DLP = 186.85 mGy-cm. This CT exam was performed using one or more of the following dose reduction techniques: Automated exposure control, adjustment of the mA and/or kV according to patient size, and/or use of iterative reconstruction technique. FINDINGS: CT OF THE NECK: PHARYNX: Nasopharynx: Unremarkable. Oropharnx: Unremarkable. Hypopharynx: Unremarkable. LYMPH NODES: Unremarkable. VASCULATURE: Unremarkable. GLANDS: Normal parotid, submandibular and thyroid glands. CERVICAL SPINE: Unremarkable. CT OF THE CHEST: LUNGS: Clear lungs. Visualized airway clear. MEDIASTINUM: Unremarkable thoracic aorta. No aneurysm or dissection. Normal sized heart. Pulmonary arterial truck unremarkable. No vascular congestion. No lymphadenopathy. In the proximal esophagus, extending above the level of the thoracic inlet over a length of approximately 6.2 cm, there is an intraluminal mass with crescentic air about the periphery of the mass, in the esophagus. This mass measures approximately 2.9 x 2.5 cm in the transverse plane. Differential diagnosis includes pedunculated intraluminal neoplasm or food bolus impacted above an esophageal stricture. Evaluation with direct visualization is advised. PLEURA: No pleural fluid. No pneumothorax. BONES: No fracture. No destructive lesion. OTHER FINDINGS: Hepatic cirrhosis. IMPRESSION: Apparent intraluminal mass of the proximal esophagus traversing the level of the thoracic inlet. There is dilatation of the esophagus around this mass. Differential diagnosis includes intraluminal pedunculated esophageal neoplasm or impacted food above an esophageal stricture. Further evaluation with endoscopic visualization is advised. No evidence of distant metastasis. Hepatic cirrhosis. No other significant abnormality is identified.
--- NOTE | 2017-11-03 12:34 | CP.PCM.PN ---
<Ramos Gardner - Last Filed: 11/03/17 17:53> Subjective - Date & Time of Evaluation Date of Evaluation: 11/03/17 Time of Evaluation: 12:31 - Subjective Subjective: Patient is still coughing up blood. No acute changes overnight. Resting comfortably in bed. Dysphagia has been progressive. She cannot swallow water. She has lost 15lbs in 3 weeks. She states people started commenting that her voice has changed 2-3 months ago. Objective - Vital Signs/Intake and Output Vital Signs (last 24 hours): Temp Pulse Resp BP Pulse Ox 98.4 F 87 18 99/67 L 99 11/03/17 06:00 11/03/17 06:00 11/03/17 06:00 11/03/17 06:00 11/03/17 06:00 Intake and Output: 11/03/17 11/03/17 06:59 18:59 Intake Total 0 Balance 0 - Medications Medications: Current Medications Acetaminophen (Tylenol 650 Mg Supp) 650 mg RC Q6H PRN PRN Reason: Pain, moderate (4-7) Sodium Chloride (Sodium Chloride 0.9%) 1,000 mls @ 50 mls/hr IV .Q20H [facility] Last Admin: 11/03/17 02:50 Dose: Not Given Sodium Phosphate 15 mmole/ (Sodium Chloride) 255 mls @ 42.5 mls/hr IVPB ONCE ONE Stop: 11/03/17 17:46 Lorazepam (Ativan) 2 mg IVP Q2H PRN; Protocol PRN Reason: Agitation Pantoprazole Sodium (Protonix Inj) 40 mg IVP Q12 [facility] Last Admin: 11/03/17 10:19 Dose: 40 mg - Labs Labs: 11/03/17 08:45 11/03/17 08:45 PT 24.1 SECONDS (9.4-12.5) H 11/03/17 08:45 INR 2.06 11/03/17 08:45 APTT 30.9 Seconds (25.1-36.5) 11/03/17 08:45 - Constitutional Appears: Non-toxic, No Acute Distress, Cachectic, Chronically Ill - Eye Exam Eye Exam: EOMI - ENT Exam ENT Exam: Mucous Membranes Moist Additional comments: Voice is altered. - Respiratory Exam Respiratory Exam: Clear to Ausculation Bilateral, NORMAL BREATHING PATTERN - Cardiovascular Exam Cardiovascular Exam: REGULAR RHYTHM, +S1, +S2 - GI/Abdominal Exam GI & Abdominal Exam: Soft, Normal Bowel Sounds. absent: Tenderness - Extremities Exam Extremities Exam: Normal Inspection - Neurological Exam Neurological Exam: Alert, Awake, Oriented x3 - Psychiatric Exam Psychiatric exam: Normal Affect, Normal Mood - Skin Skin Exam: Dry, Normal Color Assessment and Plan - Assessment and Plan (Free Text) Assessment: 52 year old female with past medical history significant for alcoholic cirrhosis, ascites, depression who presented to the [facility] ED for dysphagia and coughing up blood. Patient has history of oropharynx abnormal with polypoid friable lesion from EGD in 10/2016. #Progressive Dysphagia #Change in voice #Bleeding Esophageal Mass - Likely Malignancy vs food bolus #Chronic anemia #Thrombocytopenia #Alcoholic Liver Cirrhosis - MELDS 21 on admission, DF 54. #Previous friable polypoid lesion of the opropharynx - EGD 2016 #Elevated INR #hx of Barretts Plan: - Protonix - H/H stable at this time continue to monitor - 10mg IV Vitamin K - EGD tomorrow. - She will need platelets and likely FFP. Consult to Dr. Cleveland for help to optimize patient for procedure. <Olman Herrera V - Last Filed: 11/03/17 23:06> Objective - Vital Signs/Intake and Output Vital Signs (last 24 hours): Temp Pulse Resp BP Pulse Ox 98.4 F 94 H 20 85/51 L 96 11/03/17 22:38 11/03/17 22:38 11/03/17 22:38 11/03/17 22:38 11/03/17 22:38 Intake and Output: 11/03/17 11/04/17 18:59 06:59 Intake Total 0 Balance 0 - Medications Medications: Current Medications Acetaminophen (Tylenol 650 Mg Supp) 650 mg RC Q6H PRN PRN Reason: Pain, moderate (4-7) Acetaminophen (Tylenol 325mg Tab) 650 mg PO ONCE ONE Stop: 11/04/17 05:01 Folic Acid (Folic Acid) 1 mg PO DAILY [facility] Last Admin: 11/03/17 18:56 Dose: Not Given Sodium Chloride (Sodium Chloride 0.9%) 1,000 mls @ 50 mls/hr IV .Q20H [facility] Last Admin: 11/03/17 02:50 Dose: Not Given Lorazepam (Ativan) 2 mg IVP Q2H PRN; Protocol PRN Reason: Agitation Pantoprazole Sodium (Protonix Inj) 40 mg IVP Q12 [facility] Last Admin: 11/03/17 22:03 Dose: 40 mg Pyridoxine HCl (Vitamin B6 50 Mg Tab) 50 mg PO DAILY [facility] Last Admin: 11/03/17 18:56 Dose: Not Given - Labs Labs: 11/03/17 08:45 11/03/17 08:45 PT 24.1 SECONDS (9.4-12.5) H 11/03/17 08:45 INR 2.06 11/03/17 08:45 APTT 30.9 Seconds (25.1-36.5) 11/03/17 08:45 Attending/Attestation - Attestation I have personally seen and examined this patient.: Yes I have fully participated in the care of the patient.: Yes I have reviewed all pertinent clinical information, including history, physical exam and plan: Yes Notes (Text): This is an addendum to GI progress report dictated by the GI Fellow.The patient was seen and examined earlier. Medical records, lab studies, imagings were reviewed. Last 24 hours events reviewed. Agreed with the above treatment plan as outlined in GI Fellow 's notes with the addition of the following CT findings noted Images reviewed Large mass noted Chronic liver disease Cirrhosis of the liver secondary to EtOH History of EtOH alcohol use Coagulopathic Patient has dysphagia Need to correct coagulopathy with FFP and also need platelet transfusion prior to scheduled EGD tomorrow Followup hematology consult 11/03/17 23:01
[2017-11-03] MEDS ORDERED: Phytonadione 10 MG in Sodium Chloride 0.9% 50 ML IV ONE (13:29)
[2017-11-03] MEDS ORDERED: Magnesium Sulfate 2 gm/50 ml 2 GM/50 ML BAG IVPB ONE (13:38)
[2017-11-03] MEDS: Potassium Chl 40mEq & D5W 1,000 ML IV SCH (14:50)
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
--- NOTE | 2017-11-03 17:10 | CP.PCM.PN ---
<Clive Carias - Last Filed: 11/03/17 17:11> Subjective - Date & Time of Evaluation Date of Evaluation: 11/03/17 Time of Evaluation: 17:06 - Subjective Subjective: Clive Carias PGY [address] Evans Pt was examined at bedside this morning. She reported continuation of vomit with less blood than before. Pt reports some hoarseness. She denies any chills, fever, abdominal pain, chest pain, shortness of breath, nausea, diarrhea, dysuria. Objective - Vital Signs/Intake and Output Vital Signs (last 24 hours): Temp Pulse Resp BP Pulse Ox 98.8 F 104 H 18 92/63 L 99 11/03/17 14:00 11/03/17 14:00 11/03/17 14:00 11/03/17 14:00 11/03/17 14:00 Intake and Output: 11/03/17 11/03/17 06:59 18:59 Intake Total 0 Balance 0 - Medications Medications: Current Medications Acetaminophen (Tylenol 650 Mg Supp) 650 mg RC Q6H PRN PRN Reason: Pain, moderate (4-7) Acetaminophen (Tylenol 325mg Tab) 650 mg PO ONCE ONE Stop: 11/04/17 05:01 Folic Acid (Folic Acid) 1 mg PO DAILY [facility] Sodium Chloride (Sodium Chloride 0.9%) 1,000 mls @ 50 mls/hr IV .Q20H [facility] Last Admin: 11/03/17 02:50 Dose: Not Given Sodium Phosphate 15 mmole/ (Sodium Chloride) 255 mls @ 42.5 mls/hr IVPB ONCE ONE Stop: 11/03/17 17:46 Last Admin: 11/03/17 13:37 Dose: 42.5 mls/hr Lorazepam (Ativan) 2 mg IVP Q2H PRN; Protocol PRN Reason: Agitation Pantoprazole Sodium (Protonix Inj) 40 mg IVP Q12 [facility] Last Admin: 11/03/17 10:19 Dose: 40 mg Pyridoxine HCl (Vitamin B6 50 Mg Tab) 50 mg PO DAILY [facility] - Labs Labs: 11/03/17 08:45 11/03/17 08:45 PT 24.1 SECONDS (9.4-12.5) H 11/03/17 08:45 INR 2.06 11/03/17 08:45 APTT 30.9 Seconds (25.1-36.5) 11/03/17 08:45 - Constitutional Appears: Well, No Acute Distress - Head Exam Head Exam: ATRAUMATIC, NORMOCEPHALIC - ENT Exam Additional comments: no visible oral lesions - Respiratory Exam Respiratory Exam: Clear to Ausculation Bilateral, NORMAL BREATHING PATTERN - Cardiovascular Exam Cardiovascular Exam: REGULAR RHYTHM, +S1, +S2 - GI/Abdominal Exam GI & Abdominal Exam: Soft, Normal Bowel Sounds. absent: Tenderness - Neurological Exam Neurological Exam: Alert, Awake - Psychiatric Exam Psychiatric exam: Normal Affect, Normal Mood Assessment and Plan - Assessment and Plan (Free Text) Plan: Hematemesis - EGD (10/2016): polypoid friable lesion, abnormal oropharynx mucosa - H/H 10.1/29.3 - NPO - continue Protonix q12 - 10mg Vit K IV - CBC q6h - EGD tomorrow, as per GI - GI consulted, Dr. Herrera - recs appreciated - Heme/Onc consulted, Dr. Cleveland - f/u recs - ENT consulted - f/u recs Thrombocytopenia - Plt 11/03: 32 - Manual Plt count 11/02: 33 - 2 U Irradiated products ordered, not given - consider platelets and FFP 1hr pre EGD tomorrow - Heme/Onc consulted, Dr. Cleveland - f/u recs Liver cirrhosis - MELDS Score: 15 - GI consult: Dr. Herrera - f/u recs Hypomagnesemia - Mg 1.6 - repleted - continue to monitor Hypokalemia - 3.9, resolved - continue to monitor Hypophosphatemia - P 0.7 - repleted - continue to monitor Hyponatremia, likely 2/2 beer potomania - 134, resolved - NS @ 100 mls/hr - BMP q4h Alcohol Abuse - CIWA 0 - cont Ativan 2 q2 PRN - d/c Ativan 1 q6 [facility] - aspiration, fall, and seizure precautions - Advised cessation PPX - SCD - Protonix Case discussed and plan reviewed with Dr. Evans <Kofi Evans - Last Filed: 11/03/17 18:49> Objective - Vital Signs/Intake and Output Vital Signs (last 24 hours): Temp Pulse Resp BP Pulse Ox 98.8 F 104 H 18 92/63 L 99 11/03/17 14:00 11/03/17 14:00 11/03/17 14:00 11/03/17 14:00 11/03/17 14:00 Intake and Output: 11/03/17 11/03/17 06:59 18:59 Intake Total 0 Balance 0 - Medications Medications: Current Medications Acetaminophen (Tylenol 650 Mg Supp) 650 mg RC Q6H PRN PRN Reason: Pain, moderate (4-7) Acetaminophen (Tylenol 325mg Tab) 650 mg PO ONCE ONE Stop: 11/04/17 05:01 Folic Acid (Folic Acid) 1 mg PO DAILY [facility] Sodium Chloride (Sodium Chloride 0.9%) 1,000 mls @ 50 mls/hr IV .Q20H [facility] Last Admin: 11/03/17 02:50 Dose: Not Given Lorazepam (Ativan) 2 mg IVP Q2H PRN; Protocol PRN Reason: Agitation Pantoprazole Sodium (Protonix Inj) 40 mg IVP Q12 [facility] Last Admin: 11/03/17 10:19 Dose: 40 mg Pyridoxine HCl (Vitamin B6 50 Mg Tab) 50 mg PO DAILY [facility] - Labs Labs: 11/03/17 08:45 11/03/17 08:45 PT 24.1 SECONDS (9.4-12.5) H 11/03/17 08:45 INR 2.06 11/03/17 08:45 APTT 30.9 Seconds (25.1-36.5) 11/03/17 08:45 Attending/Attestation - Attestation I have personally seen and examined this patient.: Yes I have fully participated in the care of the patient.: Yes I have reviewed all pertinent clinical information, including history, physical exam and plan: Yes Notes (Text): 11/03/17 18:43 52 year old female with past medical history of alcohol cirrhosis who presented with complaint of hematemesis and dysphagia. She has history of friable polypoid lesion of the oropharynx. GI and ENT evaluation were requested. She also has thrombocytopenia and elevated INR. Given vitamin K. May also need platelets +/- FFP. Hematology evaluation is requested. Possible EGD if optimized. Keep NPO with iv fluids and protonix for now. She was counselled on alcohol abstinence. Will replete and repeat lytes (phosphorous/magnesium). Kofi Evans MD Hospitalist.
[2017-11-03] MEDS ORDERED: Barium Sulfate Susp 2.1% w/v, 2.0% w/w 450 mL Bottle PO ONE (17:13)
[2017-11-03] MEDS ORDERED: Iohexol 240 (50 ml) ONE (18:02)
[2017-11-03] MEDS ORDERED: Iohexol 300 100 ML IJ ONE (21:09)
[2017-11-03 21:57] LABS: CREATININE,RANDOM URINE 90 mg/dL
[2017-11-03 22:09] LABS: OSMOLALITY,URINE 500 mosm/kg (300-1000)
[2017-11-04 07:22] LABS: BASO # 0.01 K/mm3 (0.0-2.0); BASO % 0.1 % (0.0-3.0); EOS # 0.1 (0.0-0.7); EOS % 1.4 % (1.5-5.0); GRAN # 6.01 (1.4-6.5); HEMOGLOBIN 10.1 g/dL (12.0-16.0); LYMPH # 0.3 (1.2-3.4); LYMPH % 3.9 % (22.0-35.0); MEAN CELL VOLUME 96.4 fl (80.0-105.0); MEAN CORPUSCULAR HEMOGLOBIN 32.8 pg (25.0-35.0); MEAN PLATELET VOLUME 10.6 fl (7.0-11.0); MONO # 0.6 (0.1-0.6); MONO % 8.6 % (1.0-6.0); RBC 3.08 10^6/uL (3.5-6.1); RED CELL DISTRIBUTION WIDTH 12.1 % (11.5-14.5)
[2017-11-04 07:25] LABS: PLATELET COUNT 30 10^3/uL (120.0-450.0)
[2017-11-04 07:26] LABS: IRON 30 ug/dL (45-180)
[2017-11-04 07:33] LABS: PLATELET ESTIMATE LOW (NORMAL)
[2017-11-04 07:35] LABS: ALB/GLOB RATIO 0.8 (1.1-1.8); ALBUMIN 2.5 g/dL (3.0-4.8); ALT/SGPT 33 U/L (7-56); AST/SGOT 39 U/L (14-36); BLOOD UREA NITROGEN < 2 mg/dL (7-21); CALCIUM 7.6 mg/dL (8.4-10.5); GFR NON-AFRICAN AMERICAN > 60
[2017-11-04 07:36] LABS: % IRON SATURATION 18 % (20-55); TOTAL IRON BINDING CAPACITY 163 ug/dL (265-497)
[2017-11-04 08:57] LABS: INR 1.27; PROTHROMBIN TIME 14.7 SECONDS (9.4-12.5)
[2017-11-04] MEDS ORDERED: Potassium Chloride 20 mEq ER Tab PO ONE (09:24)
[2017-11-04] MEDS ORDERED: Potassium Chloride 20 mEq ER Tab PO STA (09:26)
--- NOTE | 2017-11-04 10:33 | CT ---
Date of service: 11/03/2017 PROCEDURE: CT Abdomen and Pelvis with contrast HISTORY: r/o mets COMPARISON: 10/29/2016 CT abdomen and pelvis. TECHNIQUE: Contrast dose: 100 cc Omnipaque 300. Radiation dose: Total exam DLP = 202.62 mGy-cm. This CT exam was performed using one or more of the following dose reduction techniques: Automated exposure control, adjustment of the mA and/or kV according to patient size, and/or use of iterative reconstruction technique. FINDINGS: LOWER THORAX: Unremarkable. LIVER: Cirrhotic appearing liver. Similar findings identified previously. No focal hepatic masses. Patent portal venous system. GALLBLADDER AND BILE DUCTS: Unremarkable. PANCREAS: Unremarkable. No gross lesion or ductal dilatation. SPLEEN: Unremarkable. ADRENALS: Unremarkable. No mass. KIDNEYS AND URETERS: Unremarkable. No hydronephrosis. No solid mass. VASCULATURE: Unremarkable. No aortic aneurysm. BOWEL: Unremarkable. No obstruction. No gross mural thickening. APPENDIX: Normal appendix. PERITONEUM: Unremarkable. No free fluid. No free air. LYMPH NODES: Unremarkable. No enlarged lymph nodes. BLADDER: Urinary bladder collapsed. No focal or diffuse abnormalities identified. REPRODUCTIVE: Unremarkable. BONES: No acute fracture. OTHER FINDINGS: None. IMPRESSION: No acute findings related to/accounting for the clinical presentation. Hepatomegaly/hepatic steatosis. Cirrhotic contour to the liver. No focal hepatic findings. Additional benign and/or incidental findings described above. Resolution of previously identified abdominal and pelvic ascites. No evidence of acute pancreatitis, a finding identified previously. Concordant results (preliminary interpretation) provided by [facility]. Procedure Completed: 21:31. Preliminary ([facility]) Report: Dictated and Authenticated: 22:43. Final Interpretation: 10:25. November 04, 2017.
[2017-11-04] MEDS ORDERED: DiphenhydrAMINE 50 mg/ml Inj IVP PRN (11:29)
[2017-11-04 13:10] LABS: FOLATE 6.1 ng/mL
[2017-11-04] MEDS ORDERED: DiphenhydrAMINE 50 mg/ml Inj ONE (13:55)
--- NOTE | 2017-11-04 14:52 | CP.PCM.PN ---
<JvClive - Last Filed: 11/04/17 16:54> Subjective - Date & Time of Evaluation Date of Evaluation: 11/04/17 Time of Evaluation: 14:49 - Subjective Subjective: Coryyannickkarla Melloelma PGY1 Progress Note for Dr. Evans Pt was examined at bedside this morning. She reports continuation of bloody coughing/vomiting. She reports some mild pain in her throat. She denies any chest pain, shortness of breath, abdominal pain, nausea, diarrhea. Objective - Vital Signs/Intake and Output Vital Signs (last 24 hours): Temp Pulse Resp BP Pulse Ox 98.6 F 96 H 17 90/62 L 98 11/04/17 14:22 11/04/17 14:22 11/04/17 14:22 11/04/17 14:22 11/04/17 07:50 Intake and Output: 11/04/17 11/04/17 06:59 18:59 Intake Total 1200 25 Balance 1200 25 - Medications Medications: Current Medications Acetaminophen (Tylenol 650 Mg Supp) 650 mg RC Q6H PRN PRN Reason: Pain, moderate (4-7) Diphenhydramine HCl (Benadryl) 50 mg IVP Q4H PRN PRN Reason: Allergy symptoms Folic Acid (Folic Acid) 1 mg PO DAILY [facility] Last Admin: 11/04/17 10:12 Dose: 1 mg Sodium Chloride (Sodium Chloride 0.9%) 1,000 mls @ 50 mls/hr IV .Q20H [facility] Last Admin: 11/03/17 02:50 Dose: Not Given Lorazepam (Ativan) 2 mg IVP Q2H PRN; Protocol PRN Reason: Agitation Pantoprazole Sodium (Protonix Inj) 40 mg IVP Q12 [facility] Last Admin: 11/04/17 10:13 Dose: 40 mg Pyridoxine HCl (Vitamin B6 50 Mg Tab) 50 mg PO DAILY [facility] Last Admin: 11/04/17 10:13 Dose: 50 mg - Labs Labs: 11/04/17 06:45 11/04/17 06:45 PT 14.7 SECONDS (9.4-12.5) H 11/04/17 08:45 INR 1.27 11/04/17 08:45 APTT 30.9 Seconds (25.1-36.5) 11/03/17 08:45 - Constitutional Appears: Well, No Acute Distress - Head Exam Head Exam: ATRAUMATIC, NORMOCEPHALIC - ENT Exam ENT Exam: Mucous Membranes Moist - Respiratory Exam Respiratory Exam: Clear to Ausculation Bilateral, NORMAL BREATHING PATTERN - Cardiovascular Exam Cardiovascular Exam: REGULAR RHYTHM, +S1, +S2 - GI/Abdominal Exam GI & Abdominal Exam: Soft, Normal Bowel Sounds. absent: Tenderness - Extremities Exam Extremities Exam: Normal Inspection - Neurological Exam Neurological Exam: Alert, Awake, Oriented x3 - Psychiatric Exam Psychiatric exam: Normal Affect, Normal Mood Assessment and Plan - Assessment and Plan (Free Text) Assessment: 52yoF PMH EtoH abuse and cirrhosis, presented to ED with hematemesis, admitted for hematemesis. Plan: Hematemesis - EGD (10/2016): polypoid friable lesion, abnormal oropharynx mucosa - CT neck: intraluminal pass of proximal esophagus, dilatation around the mass. - rpt EGD today, f/u report - H/H 10.1/29.7 - NPO - continue Protonix q12 - 10mg Vit K IV - CBC q6h - GI consulted, Dr. Javier lion appreciated - Heme/Onc consulted, Dr. Cleveland - f/u recs - ENT consulted - f/u recs Thrombocytopenia - Plt 11/04: 30 - 1 U Irradiated products given prior to EGD - benedryl, solu-cortef, tylenol given prior to EGD, as per heme - Heme/Onc consulted, Dr. Cristofer lion appreciated Liver cirrhosis - CT abd: cirrhotic liver, no acute findings - GI consult: Dr. Herrera - f/u recs Hypomagnesemia - Mg 1.9, resolved - continue to monitor Hypokalemia - 3.1, repleted - continue to monitor Hypophosphatemia - P 2.3 - repleted - continue to monitor Hyponatremia, likely 2/2 beer potomania - 136, resolved - NS @ 100 mls/hr - BMP q4h Alcohol Abuse - CIWA 0 - cont Ativan 2 q2 PRN - aspiration, fall, and seizure precautions - Advised cessation PPX - SCD - Protonix Case discussed and plan reviewed with Dr. Evans <Kofi Evans - Last Filed: 11/05/17 07:26> Objective - Vital Signs/Intake and Output Vital Signs (last 24 hours): Temp Pulse Resp BP Pulse Ox 98.5 F 85 18 90/61 L 96 11/04/17 22:00 11/04/17 22:00 11/04/17 22:00 11/04/17 22:00 11/04/17 22:00 - Medications Medications: Current Medications Acetaminophen (Tylenol 650 Mg Supp) 650 mg RC Q6H PRN PRN Reason: Pain, moderate (4-7) Folic Acid (Folic Acid) 1 mg PO DAILY [facility] Last Admin: 11/04/17 10:12 Dose: 1 mg Sodium Chloride (Sodium Chloride 0.9%) 1,000 mls @ 50 mls/hr IV .Q20H [facility] Last Admin: 11/03/17 02:50 Dose: Not Given Sodium Chloride (Sodium Chloride 0.9%) 1,000 mls @ 100 mls/hr IV .Q10H [facility] Lorazepam (Ativan) 2 mg IVP Q2H PRN; Protocol PRN Reason: Agitation Pantoprazole Sodium (Protonix Inj) 40 mg IVP Q12 [facility] Last Admin: 11/04/17 21:50 Dose: 40 mg Pyridoxine HCl (Vitamin B6 50 Mg Tab) 50 mg PO DAILY [facility] Last Admin: 11/04/17 10:13 Dose: 50 mg - Labs Labs: 11/04/17 06:45 11/04/17 06:45 PT 14.7 SECONDS (9.4-12.5) H 11/04/17 08:45 INR 1.27 11/04/17 08:45 APTT 30.9 Seconds (25.1-36.5) 11/03/17 08:45 Attending/Attestation - Attestation I have personally seen and examined this patient.: Yes I have fully participated in the care of the patient.: Yes I have reviewed all pertinent clinical information, including history, physical exam and plan: Yes Notes (Text): 11/04/17 52 year old female with past medical history of alcohol cirrhosis who presented with complaint of hematemesis and dysphagia. She has history of friable polypoid lesion of the oropharynx. GI is following and plan is for EGD today. ENT evaluation also requested. She also has thrombocytopenia and will receive platelets today. Hematology is following. Continue with NPO with iv fluids and protonix. She was counselled on alcohol abstinence. Will replete and repeat lytes. Kofi Evans MD Hospitalist.
[2017-11-04] MEDS ORDERED: Propofol 10 mg/ml Inj (20 ML) ONE (16:45)
[2017-11-04] MEDS ORDERED: Lidocaine 1% Inj (20ml) ONE (16:46)
[2017-11-04] MEDS ORDERED: Succinylcholine 200 mg/10 ml Inj IV ONE (16:50)
--- NOTE | 2017-11-04 17:34 | CP.PCM.CON ---
<Doreen Vega - Last Filed: 11/04/17 17:35> History of Present Illness - History of Present Illness History of Present Illness: ENT consult note for Dr. Newman Consulted for: pharyngeal mass Patient is a 52F with PMH of ETOH abuse and known hypopharyngeal mass who presented to the ED 3 days ago after fainting at home. Patient states that for the past 2-3 weeks she has had progressive dysphagia with difficulty swallowing solids, progressively worsening to inability to swallow liquids. Patient also noted having blood tinged spit 6 days ago which worsened for 3-4days until her fainting episode at home. Patient had a hypopharyngeal mass identified on EGD one year ago and was given instructions to follow up with ENT for a laryngoscope, but never followed up. Patient denies never having hemoptysis in the past. Patient reports a 15 pound weight loss over past 2 weeks. Surgery was consulted to to examine the continued hemotpysis during her hospital stay. Also denies any fevers, pain, SOB, wheezes, chest pain, GERD symptoms or abdominal pain. Positive for nausea, fatigue and dizziness. Patient admits to continued ETOH use, drinking 3 to 4 beers daily. Denies smoking or illicit drug use. Father of laryngeal cancer at age of 48. pmh - ETOH abuse, cirrhosis, depression Fam hx - Father has hx of unknown throat cancer Surg hx - jaw fx, femur fx, ankle fx with multiple plates. Allergies - none Social - ETOH abuse 3 to 4 beers daily, no smoking or illicit drug use. Review of Systems - Review of Systems All systems: reviewed and no additional remarkable complaints except (as per HPI) Past Patient History - Infectious Disease Hx of Infectious Diseases: None - Tetanus Immunizations Tetanus Immunization: Unknown - Past Medical History & Family History Past Medical History?: Yes Pertinent Family History: Father has a hx of unknown laryngeal cancer Mother of a IN - Past Social History Smoking Status: Never Smoked Chewing Tobacco Use: No Alcohol: > 2 Drinks/Day Drugs: Denies - CARDIAC Hx Cardiac Disorders: No - PULMONARY Hx Respiratory Disorders: No - NEUROLOGICAL Hx Neurological Disorder: No - HEENT Hx HEENT Problems: Yes (TUNNEL VISION) Other/Comment: dysphagia - RENAL Hx Chronic Kidney Disease: No - ENDOCRINE/METABOLIC Hx Endocrine Disorders: No - HEMATOLOGICAL/ONCOLOGICAL Hx Blood Transfusions: Yes Hx Blood Transfusion Reaction: No - INTEGUMENTARY Hx Dermatological Problems: Yes (SHINGLES TO FACE.) - MUSCULOSKELETAL/RHEUMATOLOGICAL Hx Musculoskeletal Disorders: Yes Hx Falls: Yes Hx Fractures: Yes (JAW FX REPAIR) Hx Rheumatoid Arthritis: Yes - GASTROINTESTINAL Hx Gastrointestinal Disorders: Yes Other/Comment: umbilical hernia, 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, paracentesis - GENITOURINARY/GYNECOLOGICAL Hx Genitourinary Disorders: No - PSYCHIATRIC Hx Psychophysiologic Disorder: Yes (INSOMNIA) Hx Anxiety: Yes Hx Depression: Yes Hx Substance Use: No Other/Comment: eating disorder with self-induced vomiting - SURGICAL HISTORY Hx Surgeries: Yes - ANESTHESIA Hx Anesthesia Reactions: Yes (DIFFICULTY WAKING UP) Hx Malignant Hyperthermia: No Meds Allergies/Adverse Reactions: Allergies Allergy/AdvReac Type Severity Reaction Status Date / Time No Known Allergies Allergy Verified 11/01/17 21:37 - Medications Medications: Current Medications Acetaminophen (Tylenol 650 Mg Supp) 650 mg RC Q6H PRN PRN Reason: Pain, moderate (4-7) Folic Acid (Folic Acid) 1 mg PO DAILY [facility] Last Admin: 11/04/17 10:12 Dose: 1 mg Sodium Chloride (Sodium Chloride 0.9%) 1,000 mls @ 50 mls/hr IV .Q20H [facility] Last Admin: 11/03/17 02:50 Dose: Not Given Sodium Chloride (Sodium Chloride 0.9%) 1,000 mls @ 100 mls/hr IV .Q10H [facility] Lorazepam (Ativan) 2 mg IVP Q2H PRN; Protocol PRN Reason: Agitation Pantoprazole Sodium (Protonix Inj) 40 mg IVP Q12 [facility] Last Admin: 11/04/17 10:13 Dose: 40 mg Pyridoxine HCl (Vitamin B6 50 Mg Tab) 50 mg PO DAILY [facility] Last Admin: 11/04/17 10:13 Dose: 50 mg Physical Exam - Constitutional Appears: Non-toxic, Unkempt, Cachectic, Chronically Ill - Head Exam Head Exam: NORMOCEPHALIC Additional comments: Large ecchymosis on the left frontal/temporal head, no bleeding noted. - Eye Exam Eye Exam: Normal appearance. absent: Conjunctival injection, Scleral icterus - ENT Exam ENT Exam: Mucous Membranes Moist - Neck Exam Neck exam: Negative for: Tenderness, Thyromegaly Additional comments: Soft palpable mass noted laterally to the right of the crycoid cartilage. trachea midline, no palpable lymphadenopathy no JVD. - Respiratory Exam Respiratory Exam: Clear to Auscultation Bilateral, NORMAL BREATHING PATTERN. absent: Rales, Rhonchi, Wheezes, Stridor - Cardiovascular Exam Cardiovascular Exam: RRR. absent: JVD - GI/Abdominal Exam GI & Abdominal Exam: Normal Bowel Sounds, Soft. absent: Distended, Guarding, Tenderness - Extremities Exam Extremities exam: Positive for: calf tenderness (Tenderness noted to the left calf with palpation. Negative holmans), pedal pulses present. Negative for: pedal edema - Neurological Exam Neurological exam: Alert, Oriented x3 Additional comments: Hoarseness noted. - Psychiatric Exam Psychiatric exam: Flat Affect, Normal Mood - Skin Skin Exam: Dry, Intact, Warm Results - Vital Signs Recent Vital Signs: Last Vital Signs Temp 98.6 F 11/04/17 16:11 Pulse 85 11/04/17 16:11 Resp 18 11/04/17 16:11 BP 100/59 L 11/04/17 16:11 Pulse Ox 99 11/04/17 16:54 - Labs Result Diagrams: 11/04/17 06:45 11/04/17 06:45 Labs: Laboratory Results - last 24 hr 11/03/17 11/03/17 11/03/17 08:45 08:45 21:25 WBC RBC Hgb Hct MCV MCH MCHC RDW Plt Count MPV Gran % Lymph % (Auto) Potter % (Auto) Eos % (Auto) Baso % (Auto) Gran # Lymph # (Auto) Potter # (Auto) Eos # (Auto) Baso # (Auto) Platelet Evaluation Retic Count PT INR Sodium Potassium Chloride Carbon Dioxide Anion Gap BUN Creatinine Est GFR ( Amer) Est GFR (Non-Af Amer) Random Glucose Calcium Phosphorus Magnesium Iron TIBC % Saturation Transferrin Ferritin Total Bilirubin AST ALT Alkaline Phosphatase Total Protein Albumin Globulin Albumin/Globulin Ratio Carcinoembryonic Ag 1.9 CA 19-9 Antigen 21.5 Vitamin B12 Folate Urine Osmolality 500 Ur Random Creatinine 90 Ur Random Sodium 103 11/04/17 11/04/17 11/04/17 06:45 06:45 06:45 WBC RBC Hgb Hct MCV MCH MCHC RDW Plt Count MPV Gran % Lymph % (Auto) Potter % (Auto) Eos % (Auto) Baso % (Auto) Gran # Lymph # (Auto) Potter # (Auto) Eos # (Auto) Baso # (Auto) Platelet Evaluation Retic Count PT INR Sodium 136 Potassium 3.1 L Chloride 100 Carbon Dioxide 29 Anion Gap 10 BUN < 2 L Creatinine 0.5 L Est GFR ( Amer) > 60 Est GFR (Non-Af Amer) > 60 Random Glucose 89 Calcium 7.6 L Phosphorus 2.3 L Magnesium 1.9 Iron 30 L TIBC 163 L % Saturation 18 L Transferrin 86.72 L Ferritin 268.0 Total Bilirubin 1.1 AST 39 H ALT 33 Alkaline Phosphatase 70 Total Protein 5.6 L Albumin 2.5 L Globulin 3.1 Albumin/Globulin Ratio 0.8 L Carcinoembryonic Ag CA 19-9 Antigen Vitamin B12 > 1000 H Folate 6.1 Urine Osmolality Ur Random Creatinine Ur Random Sodium 11/04/17 11/04/17 11/04/17 06:45 06:45 08:45 WBC 7.0 RBC 3.08 L Hgb 10.1 L Hct 29.7 L MCV 96.4 MCH 32.8 MCHC 34.0 RDW 12.1 Plt Count 30 L* MPV 10.6 Gran % 86.0 H Lymph % (Auto) 3.9 L Potter % (Auto) 8.6 H Eos % (Auto) 1.4 L Baso % (Auto) 0.1 Gran # 6.01 Lymph # (Auto) 0.3 L Potter # (Auto) 0.6 Eos # (Auto) 0.1 Baso # (Auto) 0.01 Platelet Evaluation Low Retic Count 1.99 H PT 14.7 H INR 1.27 Sodium Potassium Chloride Carbon Dioxide Anion Gap BUN Creatinine Est GFR ( Amer) Est GFR (Non-Af Amer) Random Glucose Calcium Phosphorus Magnesium Iron TIBC % Saturation Transferrin Ferritin Total Bilirubin AST ALT Alkaline Phosphatase Total Protein Albumin Globulin Albumin/Globulin Ratio Carcinoembryonic Ag CA 19-9 Antigen Vitamin B12 Folate Urine Osmolality Ur Random Creatinine Ur Random Sodium - Imaging and Cardiology CT scan - head Status: Image reviewed by me, Report reviewed by me Assessment & Plan - Assessment and Plan (Free Text) Assessment: 52yo female with a h alcohol abuse and cirrhosis with current hematemesis and hypopharyngeal mass. Plan: - Trend CBC, CMP - Continue IVF - Pain and nausea medication PRN - Transfuse as needed - F/U EGD and GI recs - F/U oncology recs - If mass involved esophagus, recommend CT surgery consult - Bedside laryngeoscope tentatively tomorrow - Continue medical management per primary Discussed with Dr. Newman, who agrees with above Doreen Vega, PGY2 <Michael Newman - Last Filed: 11/05/17 14:13> History of Present Illness - History of Present Illness History of Present Illness: Reviewed ct images and noted supraglottic lesion noted in addition to esophageal mass reported by radiology Meds - Medications Medications: Current Medications Acetaminophen (Tylenol 650 Mg Supp) 650 mg RC Q6H PRN PRN Reason: Pain, moderate (4-7) Folic Acid (Folic Acid) 1 mg PO DAILY [facility] Last Admin: 11/05/17 11:08 Dose: 1 mg Sodium Chloride (Sodium Chloride 0.9%) 1,000 mls @ 100 mls/hr IV .Q10H [facility] Lorazepam (Ativan) 2 mg IVP Q2H PRN; Protocol PRN Reason: Agitation Pantoprazole Sodium (Protonix Inj) 40 mg IVP Q12 [facility] Last Admin: 11/05/17 11:09 Dose: 40 mg Pyridoxine HCl (Vitamin B6 50 Mg Tab) 50 mg PO DAILY [facility] Last Admin: 11/05/17 11:08 Dose: 50 mg Physical Exam - ENT Exam Additional comments: small papillomatous lesion left tonsil noted. performe bedside DFLthrough left nasal cavity and evidence of a right epiglottic mass extending to aryepiglottic fold, no active bleeding noted vocal cords are mobile and non obstructive large septal perforation noted - Neck Exam Additional comments: did not appreciate any mass palpable in the neck(Dr Newman) Results - Vital Signs Recent Vital Signs: Last Vital Signs Temp 98.4 F 11/05/17 06:00 Pulse 83 11/05/17 06:00 Resp 18 11/05/17 06:00 BP 101/68 11/05/17 06:00 Pulse Ox 99 11/05/17 06:00 - Labs Result Diagrams: 11/05/17 07:00 11/05/17 07:00 Labs: Laboratory Results - last 24 hr 11/01/17 11/05/17 11/05/17 23:48 07:00 07:00 WBC 7.0 RBC 2.59 L Hgb 8.5 L Hct 25.0 L MCV 96.5 MCH 32.8 MCHC 34.0 RDW 12.2 Plt Count 64 L MPV 9.7 Gran % 86.1 H Lymph % (Auto) 5.5 L Potter % (Auto) 8.4 H Eos % (Auto) 0.0 L Baso % (Auto) 0.0 Gran # 6.06 Lymph # (Auto) 0.4 L Potter # (Auto) 0.6 Eos # (Auto) 0.0 Baso # (Auto) 0.00 Sodium 136 Potassium 2.4 L* D Chloride 100 Carbon Dioxide 26 Anion Gap 12 BUN 2 L Creatinine 0.4 L Est GFR ( Amer) > 60 Est GFR (Non-Af Amer) > 60 Random Glucose 99 Calcium 7.6 L Phosphorus 2.7 Magnesium 1.6 L Total Bilirubin 0.8 AST 29 ALT 35 Alkaline Phosphatase 59 Total Protein 5.2 L Albumin 2.3 L Globulin 2.9 Albumin/Globulin Ratio 0.8 L Crossmatch See Detail Assessment & Plan - Assessment and Plan (Free Text) Assessment: 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 Further tx based on bx results
[2017-11-05 07:55] LABS: GRAN # 6.06 (1.4-6.5); GRAN % 86.1 % (50.0-68.0); HEMOGLOBIN 8.5 g/dL (12.0-16.0); LYMPH # 0.4 (1.2-3.4); LYMPH % 5.5 % (22.0-35.0); MEAN CELL VOLUME 96.5 fl (80.0-105.0); MEAN CORPUSCULAR HEMOGLOBIN 32.8 pg (25.0-35.0); MEAN PLATELET VOLUME 9.7 fl (7.0-11.0); MONO # 0.6 (0.1-0.6); MONO % 8.4 % (1.0-6.0); RBC 2.59 10^6/uL (3.5-6.1); RED CELL DISTRIBUTION WIDTH 12.2 % (11.5-14.5)
[2017-11-05 08:07] LABS: ALB/GLOB RATIO 0.8 (1.1-1.8); ALBUMIN 2.3 g/dL (3.0-4.8); ALT/SGPT 35 U/L (7-56); AST/SGOT 29 U/L (14-36); BLOOD UREA NITROGEN 2 mg/dL (7-21); CALCIUM 7.6 mg/dL (8.4-10.5); GFR NON-AFRICAN AMERICAN > 60
--- NOTE | 2017-11-05 08:27 | CP.PCM.PN ---
<Ramos Gardner - Last Filed: 11/05/17 08:20> Subjective - Date & Time of Evaluation Date of Evaluation: 11/05/17 Time of Evaluation: 08:20 - Subjective Subjective: GI Fellow PGY4 Patient is doing well this AM. Still unable to control secretions however the bleeding has improved. Several specialist have been in to discuss plan of care with her. Objective - Vital Signs/Intake and Output Vital Signs (last 24 hours): Temp Pulse Resp BP Pulse Ox 98.5 F 85 18 90/61 L 96 11/04/17 22:00 11/04/17 22:00 11/04/17 22:00 11/04/17 22:00 11/04/17 22:00 Intake and Output: 11/05/17 11/05/17 06:59 18:59 Intake Total 1200 Balance 1200 - Medications Medications: Current Medications Acetaminophen (Tylenol 650 Mg Supp) 650 mg RC Q6H PRN PRN Reason: Pain, moderate (4-7) Folic Acid (Folic Acid) 1 mg PO DAILY [facility] Last Admin: 11/04/17 10:12 Dose: 1 mg Sodium Chloride (Sodium Chloride 0.9%) 1,000 mls @ 50 mls/hr IV .Q20H [facility] Last Admin: 11/03/17 02:50 Dose: Not Given Sodium Chloride (Sodium Chloride 0.9%) 1,000 mls @ 100 mls/hr IV .Q10H [facility] Lorazepam (Ativan) 2 mg IVP Q2H PRN; Protocol PRN Reason: Agitation Pantoprazole Sodium (Protonix Inj) 40 mg IVP Q12 [facility] Last Admin: 11/04/17 21:50 Dose: 40 mg Pyridoxine HCl (Vitamin B6 50 Mg Tab) 50 mg PO DAILY [facility] Last Admin: 11/04/17 10:13 Dose: 50 mg - Labs Labs: 11/05/17 07:00 11/05/17 07:00 PT 14.7 SECONDS (9.4-12.5) H 11/04/17 08:45 INR 1.27 11/04/17 08:45 APTT 30.9 Seconds (25.1-36.5) 11/03/17 08:45 - Constitutional Appears: Non-toxic, No Acute Distress, Cachectic, Chronically Ill - Head Exam Head Exam: NORMAL INSPECTION - Eye Exam Eye Exam: EOMI, Normal appearance - ENT Exam ENT Exam: Mucous Membranes Moist - Neck Exam Neck Exam: Normal Inspection - Respiratory Exam Respiratory Exam: Clear to Ausculation Bilateral, NORMAL BREATHING PATTERN - Cardiovascular Exam Cardiovascular Exam: REGULAR RHYTHM, +S1, +S2 - GI/Abdominal Exam GI & Abdominal Exam: Soft, Normal Bowel Sounds. absent: Tenderness - Extremities Exam Extremities Exam: Normal Inspection - Neurological Exam Neurological Exam: Alert, Awake, Oriented x3 - Psychiatric Exam Psychiatric exam: Normal Affect, Normal Mood - Skin Skin Exam: Dry, Normal Color Assessment and Plan - Assessment and Plan (Free Text) Assessment: 52 year old female with past medical history significant for alcoholic cirrhosis, ascites, depression who presented to the [facility] ED for dysphagia and coughing up blood. Patient has history of oropharynx abnormal with polypoid friable lesion from EGD in 10/2016. #Obstructing Hypopharyngeal mass #Esophageal Mass #Progressive Dysphagia #Change in voice #Chronic anemia #Thrombocytopenia #Alcoholic Liver Cirrhosis - MELDS 21 on admission, DF 54. #Previous friable polypoid lesion of the opropharynx - EGD 2016 #Elevated INR #hx of Barretts Plan: - EGD 11/04/17 revealed obstructing hypopharyngeal mass. - Case discussed with primary and surgical team - She will need biopsy for diagnosis and likely further work-up per oncology team. - Likely need for surgical G tube - Protonix - H/H stable at this time continue to monitor <Javier,Kovil V - Last Filed: 11/06/17 00:02> Objective - Vital Signs/Intake and Output Vital Signs (last 24 hours): Temp Pulse Resp BP Pulse Ox 98.2 F 75 20 97/67 L 96 11/05/17 23:15 11/05/17 23:15 11/05/17 23:15 11/05/17 23:15 11/05/17 23:15 - Medications Medications: Current Medications Acetaminophen (Tylenol 650 Mg Supp) 650 mg RC Q6H PRN PRN Reason: Pain, moderate (4-7) Folic Acid (Folic Acid) 1 mg PO DAILY [facility] Last Admin: 11/05/17 11:08 Dose: 1 mg Sodium Chloride (Sodium Chloride 0.9%) 1,000 mls @ 100 mls/hr IV .Q10H [facility] Last Admin: 11/05/17 18:21 Dose: Not Given Lorazepam (Ativan) 2 mg IVP Q2H PRN; Protocol PRN Reason: Agitation Metronidazole (Metrogel Cream) 0 gm TOP BID [facility] Last Admin: 11/05/17 18:07 Dose: 1 applic Pantoprazole Sodium (Protonix Inj) 40 mg IVP Q12 [facility] Last Admin: 11/05/17 21:34 Dose: 40 mg Pyridoxine HCl (Vitamin B6 50 Mg Tab) 50 mg PO DAILY [facility] Last Admin: 11/05/17 11:08 Dose: 50 mg - Labs Labs: 11/05/17 07:00 11/05/17 07:00 PT 14.7 SECONDS (9.4-12.5) H 11/04/17 08:45 INR 1.27 11/04/17 08:45 APTT 30.9 Seconds (25.1-36.5) 11/03/17 08:45 Attending/Attestation - Attestation I have personally seen and examined this patient.: Yes I have fully participated in the care of the patient.: Yes I have reviewed all pertinent clinical information, including history, physical exam and plan: Yes Notes (Text): This is an addendum to GI progress report dictated by the GI Fellow.The patient was seen and examined earlier. Medical records, lab studies, imagings were reviewed. Last 24 hours events reviewed. Agreed with the above treatment plan as outlined in GI Fellow 's notes with the addition of the following Large hypopharyngeal mass Status post pharyngoscopy There was contact bleeding with the advancement of the scope Could not pass the scope beyond ENT consult noted Will discuss with medical team 11/05/17 23:55
[2017-11-05] MEDS ORDERED: Magnesium Sulfate 2 GM in Sodium Chloride 0.9% 100 ML IVPB ONE (10:25)
[2017-11-05] MEDS ORDERED: Magnesium Sulfate 2 gm/50 ml 2 GM/50 ML BAG IVPB ONE (10:35)
--- NOTE | 2017-11-05 11:06 | CP.PCM.PN ---
<Crow Peacock - Last Filed: 11/05/17 20:16> Subjective - Date & Time of Evaluation Date of Evaluation: 11/05/17 Time of Evaluation: 10:00 - Subjective Subjective: Crow Peacock PGY2 Heme/Onc Progress Note for Dr. Cleveland Patient was seen and examined at bedside. She denies any acute overnight events. She states that she feels she is coughing up less fluid, and it is less bloody. She denies any weakness, trouble breathing, bloody stools, shortness of breath, chest pain or abdominal pain. Patient underwent upper endoscopy yesterday with Dr. Herrera, which showed a large friable fungating and ulcerative mass found in the hypopharynx, completely obstructing the airway; biopsies were not collected. ENT is planning for bedside laryngoscope today. Objective - Vital Signs/Intake and Output Vital Signs (last 24 hours): Temp Pulse Resp BP Pulse Ox 98.4 F 83 18 101/68 99 11/05/17 06:00 11/05/17 06:00 11/05/17 06:00 11/05/17 06:00 11/05/17 06:00 Intake and Output: 11/05/17 11/05/17 06:59 18:59 Intake Total 1200 Balance 1200 - Medications Medications: Current Medications Acetaminophen (Tylenol 650 Mg Supp) 650 mg RC Q6H PRN PRN Reason: Pain, moderate (4-7) Folic Acid (Folic Acid) 1 mg PO DAILY [facility] Last Admin: 11/04/17 10:12 Dose: 1 mg Sodium Chloride (Sodium Chloride 0.9%) 1,000 mls @ 100 mls/hr IV .Q10H [facility] Potassium Chloride (Potassium Chloride 20 Meq/100 Ml) 20 meq in 100 mls @ 100 mls/hr IVPB Q2H [facility] Stop: 11/05/17 11:44 Lorazepam (Ativan) 2 mg IVP Q2H PRN; Protocol PRN Reason: Agitation Pantoprazole Sodium (Protonix Inj) 40 mg IVP Q12 [facility] Last Admin: 11/04/17 21:50 Dose: 40 mg Pyridoxine HCl (Vitamin B6 50 Mg Tab) 50 mg PO DAILY [facility] Last Admin: 11/04/17 10:13 Dose: 50 mg - Labs Labs: 11/05/17 07:00 11/05/17 07:00 PT 14.7 SECONDS (9.4-12.5) H 11/04/17 08:45 INR 1.27 11/04/17 08:45 APTT 30.9 Seconds (25.1-36.5) 11/03/17 08:45 - Additional Findings Additional findings: - Constitutional Appears: Non-toxic, No Acute Distress, Cachectic - Head Exam Head Exam: NORMOCEPHALIC. absent: ATRAUMATIC (left frontal region ecchymosis) - Eye Exam Eye Exam: EOMI, Normal appearance, PERRL - ENT Exam ENT Exam: Mucous Membranes Dry - Neck Exam Neck exam: Positive for: Full Rom. Negative for: Tenderness - Respiratory Exam Respiratory Exam: NORMAL BREATHING PATTERN. absent: Rales, Rhonchi, Wheezes - Cardiovascular Exam Cardiovascular Exam: RRR, +S1, +S2. absent: Systolic Murmur - GI/Abdominal Exam GI & Abdominal Exam: Soft. 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 Intraluminal esophageal lesion was noted on imaging and a large friable hypopharyngeal mass completely obstructing the airway was seen on upper endoscopy. Malignancy needs to be ruled out given history of heavy EtOH abuse raises her risk. Given her cirrhosis, the patient's platelet level is low likely due to sequestration as well as bone marrow suppression and should be supplemented with FFP and plts prior to any procedure. Plan: - ENT consulted for laryngoscopy, biopsy would be helpful, but patient is at high risk for bleeding - recommend 1u FFP and 1u plts prior to procedures due to high risk of bleeding - Radiation Oncology, Dr. Carrero, consulted for possible radiation therapy - cont on folic acid and pyridoxine - Recommend pulmonology consult to evaluate for bronchial lesions - Further recs per Dr. Cleveland Case was reviewed and discussed with attending, Dr. Cristofer Peacock PGY2 <Loni Cleveland P - Last Filed: 11/05/17 23:05> Objective - Vital Signs/Intake and Output Vital Signs (last 24 hours): Temp Pulse Resp BP Pulse Ox 98.3 F 81 18 84/54 L 99 11/05/17 14:00 11/05/17 14:00 11/05/17 14:00 11/05/17 14:00 11/05/17 14:00 - Medications Medications: Current Medications Acetaminophen (Tylenol 650 Mg Supp) 650 mg RC Q6H PRN PRN Reason: Pain, moderate (4-7) Folic Acid (Folic Acid) 1 mg PO DAILY [facility] Last Admin: 11/05/17 11:08 Dose: 1 mg Sodium Chloride (Sodium Chloride 0.9%) 1,000 mls @ 100 mls/hr IV .Q10H [facility] Last Admin: 11/05/17 18:21 Dose: Not Given Lorazepam (Ativan) 2 mg IVP Q2H PRN; Protocol PRN Reason: Agitation Metronidazole (Metrogel Cream) 0 gm TOP BID [facility] Last Admin: 11/05/17 18:07 Dose: 1 applic Pantoprazole Sodium (Protonix Inj) 40 mg IVP Q12 [facility] Last Admin: 11/05/17 21:34 Dose: 40 mg Pyridoxine HCl (Vitamin B6 50 Mg Tab) 50 mg PO DAILY [facility] Last Admin: 11/05/17 11:08 Dose: 50 mg - Labs Labs: 11/05/17 07:00 11/05/17 07:00 PT 14.7 SECONDS (9.4-12.5) H 11/04/17 08:45 INR 1.27 11/04/17 08:45 APTT 30.9 Seconds (25.1-36.5) 11/03/17 08:45 Attending/Attestation - Attestation I have personally seen and examined this patient.: Yes I have fully participated in the care of the patient.: Yes I have reviewed all pertinent clinical information, including history, physical exam and plan: Yes
--- NOTE | 2017-11-05 17:15 | CP.PCM.PN ---
<Clive Carias - Last Filed: 11/05/17 17:03> Subjective - Date & Time of Evaluation Date of Evaluation: 11/05/17 Time of Evaluation: 11:00 - Subjective Subjective: Clive Carias PGY1 Progress Note for Dr. Evans Pt was examined at bedside. She reported improvement of her vomiting, with scant blood. She reported some mild throat pain. She denied any chest pain, shortness of breath, dizziness, abdominal pain, nausea, vomiting, or diarrhea. Objective - Vital Signs/Intake and Output Vital Signs (last 24 hours): Temp Pulse Resp BP Pulse Ox 98.3 F 81 18 84/54 L 99 11/05/17 14:00 11/05/17 14:00 11/05/17 14:00 11/05/17 14:00 11/05/17 14:00 Intake and Output: 11/05/17 11/05/17 06:59 18:59 Intake Total 1200 Balance 1200 - Medications Medications: Current Medications Acetaminophen (Tylenol 650 Mg Supp) 650 mg RC Q6H PRN PRN Reason: Pain, moderate (4-7) Folic Acid (Folic Acid) 1 mg PO DAILY [facility] Last Admin: 11/05/17 11:08 Dose: 1 mg Sodium Chloride (Sodium Chloride 0.9%) 1,000 mls @ 100 mls/hr IV .Q10H [facility] Lorazepam (Ativan) 2 mg IVP Q2H PRN; Protocol PRN Reason: Agitation Metronidazole (Metrogel Cream) 0 gm TOP BID [facility] Pantoprazole Sodium (Protonix Inj) 40 mg IVP Q12 [facility] Last Admin: 11/05/17 11:09 Dose: 40 mg Pyridoxine HCl (Vitamin B6 50 Mg Tab) 50 mg PO DAILY [facility] Last Admin: 11/05/17 11:08 Dose: 50 mg - Labs Labs: 11/05/17 07:00 11/05/17 07:00 PT 14.7 SECONDS (9.4-12.5) H 11/04/17 08:45 INR 1.27 11/04/17 08:45 APTT 30.9 Seconds (25.1-36.5) 11/03/17 08:45 - Constitutional Appears: Well, No Acute Distress - Head Exam Additional comments: purpura on L side of forehead and upper malar region - ENT Exam ENT Exam: Mucous Membranes Moist - Respiratory Exam Respiratory Exam: Clear to Ausculation Bilateral, NORMAL BREATHING PATTERN - Cardiovascular Exam Cardiovascular Exam: REGULAR RHYTHM, +S1, +S2 - GI/Abdominal Exam GI & Abdominal Exam: Soft, Normal Bowel Sounds. absent: Tenderness - Neurological Exam Neurological Exam: Alert, Awake Assessment and Plan - Assessment and Plan (Free Text) Assessment: 52yoF PMH EtoH abuse and cirrhosis, presented to ED with hematemesis, admitted for hematemesis. Plan: Hematemesis, likely 2/2 malignancy - EGD (11/04): large friable, fungating and ulcerative mass found in hypopharynx, completely obstructing airway, likely malignant - CT neck: intraluminal pass of proximal esophagus, dilatation around the mass. - H/H 8.5/25.0 - NPO - continue Protonix q12 - continue folic acid and pyridoxine, as per heme/onc - CBC q6h - f/u HIV, HPV - consult Dr. Carrero for radiation, as per heme/onc - GI consulted, Dr. Javier lion appreciated - Heme/Onc consulted, Dr. Cristofer lion appreciated - ENT consulted, likely to remove mass - f/u recs Thrombocytopenia - Plt 64 today, resolved - 1 U Irradiated products given 11/04 - transfuse w/ FFP and 1 u platelets prior to procedures, as per heme/onc - Heme/Onc consulted, Dr. Cristofer lion appreciated Liver cirrhosis - CT abd: cirrhotic liver, no acute findings - GI consult: Dr. Herrera Hypomagnesemia - Mg 1.6, repleted - continue to monitor Hypokalemia - 2.4, repleted - continue to monitor Hypophosphatemia - P 2.7, resolved - continue to monitor Hyponatremia, likely 2/2 beer potomania - 136, resolved - NS @ 100 mls/hr - BMP q4h Alcohol Abuse - CIWA 0 - cont Ativan 2 q2 PRN - aspiration, fall, and seizure precautions - Advised cessation PPX - SCD - Protonix Case discussed and plan reviewed with Dr. Evans <Kofi Evans - Last Filed: 11/05/17 18:56> Objective - Vital Signs/Intake and Output Vital Signs (last 24 hours): Temp Pulse Resp BP Pulse Ox 98.3 F 81 18 84/54 L 99 11/05/17 14:00 11/05/17 14:00 11/05/17 14:00 11/05/17 14:00 11/05/17 14:00 Intake and Output: 11/05/17 11/05/17 06:59 18:59 Intake Total 1200 Balance 1200 - Medications Medications: Current Medications Acetaminophen (Tylenol 650 Mg Supp) 650 mg RC Q6H PRN PRN Reason: Pain, moderate (4-7) Folic Acid (Folic Acid) 1 mg PO DAILY [facility] Last Admin: 11/05/17 11:08 Dose: 1 mg Sodium Chloride (Sodium Chloride 0.9%) 1,000 mls @ 100 mls/hr IV .Q10H [facility] Last Admin: 11/05/17 18:21 Dose: Not Given Lorazepam (Ativan) 2 mg IVP Q2H PRN; Protocol PRN Reason: Agitation Metronidazole (Metrogel Cream) 0 gm TOP BID [facility] Last Admin: 11/05/17 18:07 Dose: 1 applic Pantoprazole Sodium (Protonix Inj) 40 mg IVP Q12 [facility] Last Admin: 11/05/17 11:09 Dose: 40 mg Pyridoxine HCl (Vitamin B6 50 Mg Tab) 50 mg PO DAILY [facility] Last Admin: 11/05/17 11:08 Dose: 50 mg - Labs Labs: 11/05/17 07:00 11/05/17 07:00 PT 14.7 SECONDS (9.4-12.5) H 11/04/17 08:45 INR 1.27 11/04/17 08:45 APTT 30.9 Seconds (25.1-36.5) 11/03/17 08:45 Attending/Attestation - Attestation I have personally seen and examined this patient.: Yes I have fully participated in the care of the patient.: Yes I have reviewed all pertinent clinical information, including history, physical exam and plan: Yes Notes (Text): 11/05/17 18:53 52 year old female with past medical history of alcohol cirrhosis who presented with complaint of hematemesis and dysphagia. She has history of friable polypoid lesion of the oropharynx. This was also seen on EGD by GI yesterday. ENT evaluation requested. Hematology/oncology is following and also requested radiation/oncology evaluation. Patient may need surgery evaluation for surgical G-tube placement. Continue to monitor thrombocytopenia. Continue with NPO with iv fluids and protonix. She was counselled on alcohol abstinence. Will replete and repeat lytes. Kofi Evans MD Hospitalist.
[2017-11-05] MEDS: MetroNIDAZOLE 0.75% Cream(45 gm) TOP SCH (18:07)
[2017-11-05] MEDS: Sodium Chloride 0.9% 1,000 ML IV SCH ×2 (18:08→18:21)
[2017-11-06 07:47] LABS: BASO # 0.01 K/mm3 (0.0-2.0); BASO % 0.1 % (0.0-3.0); EOS # 0.1 (0.0-0.7); EOS % 0.9 % (1.5-5.0); GRAN # 7.2 (1.4-6.5); GRAN % 83.8 % (50.0-68.0); HEMOGLOBIN 9.4 g/dL (12.0-16.0); LYMPH # 0.5 (1.2-3.4); LYMPH % 5.7 % (22.0-35.0); MEAN CELL VOLUME 99.3 fl (80.0-105.0); MEAN CORPUSCULAR HEMOGLOBIN 32.8 pg (25.0-35.0); MEAN PLATELET VOLUME 9.9 fl (7.0-11.0); MONO # 0.8 (0.1-0.6); MONO % 9.5 % (1.0-6.0); RBC 2.87 10^6/uL (3.5-6.1); RED CELL DISTRIBUTION WIDTH 12.8 % (11.5-14.5); WHITE BLOOD COUNT 8.6 10^3/ul (4.5-11.0)
[2017-11-06 08:02] LABS: ALB/GLOB RATIO 0.8 (1.1-1.8); ALBUMIN 2.4 g/dL (3.0-4.8); ALT/SGPT 32 U/L (7-56); AST/SGOT 29 U/L (14-36); BLOOD UREA NITROGEN 3 mg/dL (7-21); CALCIUM 7.6 mg/dL (8.4-10.5); GFR NON-AFRICAN AMERICAN > 60
[2017-11-06] MEDS ORDERED: Sodium Phosphate 15 MMOLE in Sodium Chloride 0.9% 250 ML IVPB ONE (09:32)
[2017-11-06] MEDS: MetroNIDAZOLE 0.75% Cream(45 gm) TOP SCH ×2 (09:43→17:10)
--- NOTE | 2017-11-06 11:05 | CP.PCM.PN ---
Subjective - Date & Time of Evaluation Date of Evaluation: 11/06/17 Time of Evaluation: 11:00 Objective - Vital Signs/Intake and Output Vital Signs (last 24 hours): Temp Pulse Resp BP Pulse Ox 98 F 84 18 108/74 100 11/06/17 06:00 11/06/17 06:00 11/06/17 06:00 11/06/17 06:00 11/06/17 06:00 Intake and Output: 11/06/17 11/06/17 06:59 18:59 Intake Total 2400 Balance 2400 - Medications Medications: Current Medications Acetaminophen (Tylenol 650 Mg Supp) 650 mg RC Q6H PRN PRN Reason: Pain, moderate (4-7) Folic Acid (Folic Acid) 1 mg PO DAILY [facility] Last Admin: 11/06/17 09:43 Dose: Not Given Sodium Chloride (Sodium Chloride 0.9%) 1,000 mls @ 100 mls/hr IV .Q10H [facility] Last Admin: 11/05/17 18:21 Dose: Not Given Potassium Chloride (Potassium Chloride 20 Meq/100 Ml) 20 meq in 100 mls @ 50 mls/hr IVPB Q2H [facility] Stop: 11/06/17 13:44 Sodium Phosphate 15 mmole/ (Sodium Chloride) 255 mls @ 42.5 mls/hr IVPB ONCE ONE Stop: 11/06/17 15:31 Lorazepam (Ativan) 2 mg IVP Q2H PRN; Protocol PRN Reason: Agitation Metronidazole (Metrogel Cream) 0 gm TOP BID [facility] Last Admin: 11/06/17 09:43 Dose: Not Given Pantoprazole Sodium (Protonix Inj) 40 mg IVP Q12 [facility] Last Admin: 11/06/17 09:43 Dose: Not Given Pyridoxine HCl (Vitamin B6 50 Mg Tab) 50 mg PO DAILY [facility] Last Admin: 11/06/17 09:43 Dose: Not Given - Labs Labs: 11/06/17 07:30 11/06/17 07:30 PT 14.7 SECONDS (9.4-12.5) H 11/04/17 08:45 INR 1.27 11/04/17 08:45 APTT 30.9 Seconds (25.1-36.5) 11/03/17 08:45 - Constitutional Appears: Well, Non-toxic, No Acute Distress - Head Exam Head Exam: ATRAUMATIC, NORMOCEPHALIC - Eye Exam Eye Exam: Normal appearance - ENT Exam ENT Exam: Mucous Membranes Moist - Respiratory Exam Respiratory Exam: NORMAL BREATHING PATTERN. absent: Respiratory Distress - Cardiovascular Exam Cardiovascular Exam: RRR - GI/Abdominal Exam GI & Abdominal Exam: Soft. absent: Distended, Guarding, Tenderness - Extremities Exam Extremities Exam: Normal Inspection - Neurological Exam Neurological Exam: Alert, Awake, Oriented x3 - Psychiatric Exam Psychiatric exam: Normal Affect, Normal Mood - Skin Skin Exam: Dry, Intact, Normal Color, Warm
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
[2017-11-06] MEDS ORDERED: Iohexol 350 MG/100 ML VIAL ONE (11:38)
--- NOTE | 2017-11-06 14:04 | CT ---
Date of service: 11/06/2017 PROCEDURE: CT NECK WITH CONTRAST HISTORY: evaluation of laryngeal disease COMPARISON: Neck CT without contrast 11/03/2017. TECHNIQUE: CT of the neck with intravenous contrast. Coronal and sagittal reformats generated. Intravenous contrast dose: Omnipaque 350, 100 cc Radiation dose: DLP 212.06 mGy-cm This CT exam was performed using one or more of the following dose reduction techniques: Automated exposure control, adjustment of the mA and/or kV according to patient size, and/or use of iterative reconstruction technique. FINDINGS: Examination remains positive for an irregular mass with limited but variable enhancement at the level of the glottis and bilateral aryepiglottic folds identified beginning at the inferior margins of the epiglottis. It likely terminates there rather than growing inferiorly into the prevertebral space and extending to the lobular mass associated with potentially the upper esophagus and pharyngo esophageal junction. Comparison to the prior noncontrast neck CT performed 11/03/2017 reveals enhancement in a serpiginous fashion primarily involving the medial/posterior portion of the presumed esophageal mass suggesting malignancy rather than retained food products. Given peripheral emphysematous changes, this is felt to represent an intraluminal mass rather than an extrinsic mass eroding into the esophagus. There is also a lack of upper mediastinal emphysema to suggest peripheral lesion eroding into the esophagus. General measurement of both lesions is as follows: 2.0 x 1.9 cm glottis lesion, 3.3 x 2.4 cm upper esophageal lesion. GLANDS: Parotid and submandibular glands unremarkable. Normal size thyroid gland, without nodule. LYMPH NODES: Normal. No lymphadenopathy. CERVICAL SPINE: No fracture or focal lesion. VASCULAR STRUCTURES: Unremarkable. OTHER FINDINGS: None. IMPRESSION: Two apparent separate masses including the glottis, 2.0 x 1.9 cm and the apparent upper esophagus/pharyngo esophageal junction 3.3 x 2.4 cm. No significant lymphadenopathy appreciable.
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
--- NOTE | 2017-11-06 15:44 | CP.PCM.PN ---
<Clive Carias - Last Filed: 11/06/17 16:20> Subjective - Date & Time of Evaluation Date of Evaluation: 11/06/17 Time of Evaluation: 09:00 - Subjective Subjective: Clive Carias PGY1 Progress Note for Dr. Evans Pt was examined at bedside this morning. Pt reported some mild throat pain. She also complained of neck and back pain that was achy, which she attributes to being in bed during her hospital stay. Pt denied any chest pain, shortness of breath, abdominal pain, nausea, vomiting, diarrhea. Objective - Vital Signs/Intake and Output Vital Signs (last 24 hours): Temp Pulse Resp BP Pulse Ox 98 F 84 18 108/74 100 11/06/17 06:00 11/06/17 06:00 11/06/17 06:00 11/06/17 06:00 11/06/17 06:00 Intake and Output: 11/06/17 11/06/17 06:59 18:59 Intake Total 2400 Balance 2400 - Medications Medications: Current Medications Acetaminophen (Tylenol 650 Mg Supp) 650 mg RC Q6H PRN PRN Reason: Pain, moderate (4-7) Sodium Chloride (Sodium Chloride 0.9%) 1,000 mls @ 100 mls/hr IV .Q10H [facility] Last Admin: 11/05/17 18:21 Dose: Not Given Amino Acids/Electrolytes/Dextrose (Clinimix 4.25/5 % "E" (2000 Ml)) 2,000 mls @ 83 mls/hr IV .Q24H [facility] Stop: 11/09/17 17:59 Fat Emulsion Intravenous (Intralipid 20%) 250 mls @ 21 mls/hr IV 1800 [facility] Stop: 11/09/17 17:59 Lorazepam (Ativan) 2 mg IVP Q2H PRN; Protocol PRN Reason: Agitation Metronidazole (Metrogel Cream) 0 gm TOP BID [facility] Last Admin: 11/06/17 09:43 Dose: Not Given Pantoprazole Sodium (Protonix Inj) 40 mg IVP Q12 [facility] Last Admin: 11/06/17 09:43 Dose: Not Given - Labs Labs: 11/06/17 07:30 11/06/17 07:30 PT 14.7 SECONDS (9.4-12.5) H 11/04/17 08:45 INR 1.27 11/04/17 08:45 APTT 30.9 Seconds (25.1-36.5) 11/03/17 08:45 - Constitutional Appears: Well, No Acute Distress - Head Exam Head Exam: NORMOCEPHALIC Additional comments: purpura on left side of forehead and malar region - Eye Exam Eye Exam: EOMI, PERRL Pupil Exam: NORMAL ACCOMODATION - ENT Exam ENT Exam: Mucous Membranes Moist - Neck Exam Neck Exam: Normal Inspection, Tenderness - Respiratory Exam Respiratory Exam: Clear to Ausculation Bilateral, NORMAL BREATHING PATTERN. absent: Rales, Rhonchi, Wheezes - Cardiovascular Exam Cardiovascular Exam: REGULAR RHYTHM, +S1, +S2. absent: Gallop, Rubs, Murmur - GI/Abdominal Exam GI & Abdominal Exam: Soft, Normal Bowel Sounds. absent: Distended, Firm, Tenderness - Extremities Exam Extremities Exam: absent: Pedal Edema Additional comments: RUE and LUE edema - Neurological Exam Neurological Exam: Alert, Awake, Oriented x3 - Psychiatric Exam Psychiatric exam: Depressed, Normal Affect Assessment and Plan - Assessment and Plan (Free Text) Assessment: 52yoF PMH EtoH abuse and cirrhosis, presented to ED with hematemesis, being evaluated and treated for pharyngeal mass. Plan: Hematemesis, likely 2/2 malignancy - EGD (11/04): large friable, fungating and ulcerative mass found in hypopharynx, completely obstructing airway, likely malignant - Soft tissue neck CT: two apparent separate masses including the glottis, 2x1.9cm and upper esophagus/pharyngo esophageal junction 3.3x2.4cm - H/H 9.4/28.5 - continue Protonix q12 - CBC q6h - HIV negative - PICC line ordered and placed for PPN to start tonight - Gen sx to place je or G tube in OR on thursday - ENT to biopsy this week - GI consulted, Dr. Javier lion appreciated - Heme/Onc consulted, Dr. Cristofer lion appreciated - ENT consulted, Dr. Newman - recs appreciated - Rad/Onc consulted, Dr. Carrero - will f/u recs after biopsy - Gen sx consulted, Dr. Lobato, - recs appreciated Thrombocytopenia - Plt 65 today - 1 U Irradiated products given 11/04 - transfuse w/ FFP and 1 u platelets prior to procedures, as per heme/onc - Heme/Onc consulted, Dr. Cleveland - recs appreciated Neck and Back Pain - likely secondary to bed positioning - encouraged pt to sit in chair and walk around - tylenol 650 RC q6 PRN Liver cirrhosis - CT abd: cirrhotic liver, no acute findings - GI consult: Dr. Herrera Hypomagnesemia - Mg 1.8, resolved - continue to monitor Hypokalemia - 3.3, repleted - continue to monitor Hypophosphatemia - P 2.2, repleted - continue to monitor Alcohol Abuse - CIWA 0 - decrease Ativan 1 q6 PRN - aspiration, fall, and seizure precautions - Advised cessation PPX - SCD - Protonix Case discussed and plan reviewed with Dr. Evans <Kofi Evans - Last Filed: 11/06/17 17:30> Objective - Vital Signs/Intake and Output Vital Signs (last 24 hours): Temp Pulse Resp BP Pulse Ox 98 F 84 18 108/74 100 11/06/17 06:00 11/06/17 06:00 11/06/17 06:00 11/06/17 06:00 11/06/17 06:00 Intake and Output: 11/06/17 11/06/17 06:59 18:59 Intake Total 2400 Balance 2400 - Medications Medications: Current Medications Acetaminophen (Tylenol 650 Mg Supp) 650 mg RC Q6H PRN PRN Reason: Pain, moderate (4-7) Sodium Chloride (Sodium Chloride 0.9%) 1,000 mls @ 100 mls/hr IV .Q10H [facility] Last Admin: 11/06/17 17:10 Dose: 100 mls/hr Amino Acids/Electrolytes/Dextrose (Clinimix 4.25/5 % "E" (2000 Ml)) 2,000 mls @ 83 mls/hr IV .Q24H [facility] Stop: 11/09/17 17:59 Last Admin: 11/06/17 17:09 Dose: 83 mls/hr Fat Emulsion Intravenous (Intralipid 20%) 250 mls @ 21 mls/hr IV 1800 [facility] Stop: 11/09/17 17:59 Last Admin: 11/06/17 17:08 Dose: 21 mls/hr Lorazepam (Ativan) 1 mg IVP Q6H PRN; Protocol PRN Reason: Anxiety Last Admin: 11/06/17 17:08 Dose: 1 mg Metronidazole (Metrogel Cream) 0 gm TOP BID [facility] Last Admin: 11/06/17 17:10 Dose: 1 applic Pantoprazole Sodium (Protonix Inj) 40 mg IVP Q12 [facility] Last Admin: 11/06/17 09:43 Dose: Not Given - Labs Labs: 11/06/17 07:30 11/06/17 07:30 PT 14.7 SECONDS (9.4-12.5) H 11/04/17 08:45 INR 1.27 11/04/17 08:45 APTT 30.9 Seconds (25.1-36.5) 11/03/17 08:45 Attending/Attestation - Attestation I have personally seen and examined this patient.: Yes I have fully participated in the care of the patient.: Yes I have reviewed all pertinent clinical information, including history, physical exam and plan: Yes Notes (Text): 11/06/17 17:27 52 year old female with past medical history of alcohol cirrhosis who presented with complaint of hematemesis and dysphagia. She has history of friable polypoid lesion of the oropharynx. This was also seen on EGD by GI earlier this week. ENT is following. Plan for possible trach next week. Hematology/oncology and radiation/oncology are following. Surgery evaluation was appreciated for possible surgical G-tube placement next week. Continue to monitor thrombocytopenia. Continue with NPO with iv fluids and protonix. Picc line was placed today to start PPN. She was counselled on alcohol abstinence. Will replete and repeat lytes. Kofi Evans MD Hospitalist.
[2017-11-06] MEDS: Fat Emulsion 20% IV 250 ML IV SCH (17:08)
[2017-11-06] MEDS: Sodium Chloride 0.9% 1,000 ML IV SCH (17:10)
[2017-11-07 08:54] LABS: BASO # 0.02 K/mm3 (0.0-2.0); BASO % 0.3 % (0.0-3.0); EOS # 0.1 (0.0-0.7); EOS % 1.3 % (1.5-5.0); GRAN # 5.37 (1.4-6.5); LYMPH # 0.6 (1.2-3.4); LYMPH % 9.3 % (22.0-35.0); MEAN CELL VOLUME 98.9 fl (80.0-105.0); MEAN CORPUSCULAR HEMOGLOBIN 33.3 pg (25.0-35.0); MEAN CORPUSCULAR HGB CONC 33.7 g/dl (31.0-37.0); MEAN PLATELET VOLUME 10.5 fl (7.0-11.0); MONO # 0.7 (0.1-0.6); MONO % 10.1 % (1.0-6.0); RBC 2.7 10^6/uL (3.5-6.1); RED CELL DISTRIBUTION WIDTH 13.2 % (11.5-14.5); WHITE BLOOD COUNT 6.8 10^3/ul (4.5-11.0)
[2017-11-07] MEDS: MetroNIDAZOLE 0.75% Cream(45 gm) TOP SCH ×2 (09:23→17:00)
[2017-11-07 09:33] LABS: ALB/GLOB RATIO 0.8 (1.1-1.8); ALBUMIN 2.2 g/dL (3.0-4.8); ALT/SGPT 30 U/L (7-56); AST/SGOT 25 U/L (14-36); BLOOD UREA NITROGEN 6 mg/dL (7-21); CALCIUM 7.1 mg/dL (8.4-10.5); GFR NON-AFRICAN AMERICAN > 60
--- NOTE | 2017-11-07 10:40 | CP.PCM.PN ---
Subjective - Date & Time of Evaluation Date of Evaluation: 11/07/17 Time of Evaluation: 10:37 - Subjective Subjective: General Surgery Progress Note for Dr. Lobato This 52F was seen and evaluated this AM at bedside. No acute events reported overnight. She continue to spit up small amounts of blood, however her only complaint is her back pain. She denies any SOB or chest pain. Objective - Vital Signs/Intake and Output Vital Signs (last 24 hours): Temp Pulse Resp BP Pulse Ox 97.9 F 94 H 18 98/58 L 96 11/07/17 06:00 11/07/17 06:00 11/07/17 06:00 11/07/17 06:00 11/07/17 06:00 Intake and Output: 11/07/17 11/07/17 06:59 18:59 Intake Total 1496 Balance 1496 - Medications Medications: Current Medications Acetaminophen (Tylenol 650 Mg Supp) 650 mg RC Q6H PRN PRN Reason: Pain, moderate (4-7) Sodium Chloride (Sodium Chloride 0.9%) 1,000 mls @ 100 mls/hr IV .Q10H [facility] Last Admin: 11/06/17 17:10 Dose: 100 mls/hr Amino Acids/Electrolytes/Dextrose (Clinimix 4.25/5 % "E" (2000 Ml)) 2,000 mls @ 83 mls/hr IV .Q24H [facility] Stop: 11/09/17 17:59 Last Admin: 11/06/17 17:09 Dose: 83 mls/hr Fat Emulsion Intravenous (Intralipid 20%) 250 mls @ 21 mls/hr IV 1800 [facility] Stop: 11/09/17 17:59 Last Admin: 11/06/17 17:08 Dose: 21 mls/hr Lorazepam (Ativan) 1 mg IVP Q6H PRN; Protocol PRN Reason: Anxiety Last Admin: 11/06/17 17:08 Dose: 1 mg Metronidazole (Metrogel Cream) 0 gm TOP BID [facility] Last Admin: 11/07/17 09:23 Dose: 1 applic Pantoprazole Sodium (Protonix Inj) 40 mg IVP Q12 [facility] Last Admin: 11/07/17 09:23 Dose: 40 mg - Labs Labs: 11/07/17 07:00 11/07/17 07:00 PT 14.7 SECONDS (9.4-12.5) H 11/04/17 08:45 INR 1.27 11/04/17 08:45 APTT 30.9 Seconds (25.1-36.5) 11/03/17 08:45 - Constitutional Appears: Non-toxic, No Acute Distress - Head Exam Head Exam: ATRAUMATIC, NORMOCEPHALIC - Eye Exam Eye Exam: EOMI - Respiratory Exam Respiratory Exam: NORMAL BREATHING PATTERN - Cardiovascular Exam Cardiovascular Exam: +S1, +S2 - GI/Abdominal Exam GI & Abdominal Exam: Soft. absent: Rigid, Tenderness - Neurological Exam Neurological Exam: Alert, Awake - Psychiatric Exam Psychiatric exam: Normal Affect, Normal Mood - Skin Skin Exam: Dry, Intact Assessment and Plan - Assessment and Plan (Free Text) Assessment: 52 yo female with a PMH of alcohol abuse and cirrhosis presenting with dysphagia and hypopharyngeal mass. Plan: - Tentative plan for jejunostomy in the OR on Thursday. - Continue to trend CBC, CMP. - Continue parenteral nutrition. - Continue to monitor platelets, GI recommends 1u FFP and 1u platelets prior to procedures due to high risk of bleeding. Further recs per Dr. Luis Alfredo Doyle PGY3
[2017-11-07] MEDS ORDERED: Magnesium Sulfate 2 gm/50 ml 2 GM/50 ML BAG IVPB ONE (11:24)
[2017-11-07] MEDS: Morphine 2 mg/ml ISec IVP PRN ×2 (12:22→20:21)
--- NOTE | 2017-11-07 14:29 | CP.PCM.PN ---
<Svitlana Pham - Last Filed: 11/07/17 14:30> Subjective - Date & Time of Evaluation Date of Evaluation: 11/07/17 Time of Evaluation: 08:40 - Subjective Subjective: PGY5 GI Follow-up Pt seen and examined bedside Denies any abd pain tolerating diet ROS: 12 point ROS conducted, neg other than above Objective - Vital Signs/Intake and Output Vital Signs (last 24 hours): Temp Pulse Resp BP Pulse Ox 97.9 F 94 H 18 98/58 L 96 11/07/17 06:00 11/07/17 06:00 11/07/17 06:00 11/07/17 06:00 11/07/17 06:00 Intake and Output: 11/07/17 11/07/17 06:59 18:59 Intake Total 1496 Balance 1496 - Medications Medications: Current Medications Acetaminophen (Tylenol 650 Mg Supp) 650 mg RC Q6H PRN PRN Reason: Pain, moderate (4-7) Sodium Chloride (Sodium Chloride 0.9%) 1,000 mls @ 100 mls/hr IV .Q10H [facility] Last Admin: 11/06/17 17:10 Dose: 100 mls/hr Amino Acids/Electrolytes/Dextrose (Clinimix 4.25/5 % "E" (2000 Ml)) 2,000 mls @ 83 mls/hr IV .Q24H [facility] Stop: 11/09/17 17:59 Last Admin: 11/06/17 17:09 Dose: 83 mls/hr Fat Emulsion Intravenous (Intralipid 20%) 250 mls @ 21 mls/hr IV 1800 [facility] Stop: 11/09/17 17:59 Last Admin: 11/06/17 17:08 Dose: 21 mls/hr Potassium Chloride (Potassium Chloride 20 Meq/100 Ml) 20 meq in 100 mls @ 50 mls/hr IVPB Q2H [facility] Stop: 11/07/17 15:29 Lorazepam (Ativan) 1 mg IVP Q6H PRN; Protocol PRN Reason: Anxiety Last Admin: 11/06/17 17:08 Dose: 1 mg Metronidazole (Metrogel Cream) 0 gm TOP BID [facility] Last Admin: 11/07/17 09:23 Dose: 1 applic Morphine Sulfate (Morphine) 1 mg IVP Q4H PRN PRN Reason: Pain, moderate (4-7) Last Admin: 11/07/17 12:22 Dose: 1 mg Pantoprazole Sodium (Protonix Inj) 40 mg IVP Q12 [facility] Last Admin: 11/07/17 09:23 Dose: 40 mg - Labs Labs: 11/07/17 07:00 11/07/17 07:00 PT 14.7 SECONDS (9.4-12.5) H 11/04/17 08:45 INR 1.27 11/04/17 08:45 APTT 30.9 Seconds (25.1-36.5) 11/03/17 08:45 - Constitutional Appears: Well, No Acute Distress - Head Exam Head Exam: ATRAUMATIC, NORMOCEPHALIC - Eye Exam Eye Exam: Normal appearance - ENT Exam ENT Exam: Mucous Membranes Moist, Normal Exam - Neck Exam Neck Exam: Normal Inspection - Respiratory Exam Respiratory Exam: Clear to Ausculation Bilateral, NORMAL BREATHING PATTERN. absent: Rales, Rhonchi, Wheezes, Respiratory Distress - Cardiovascular Exam Cardiovascular Exam: REGULAR RHYTHM, +S1, +S2 - GI/Abdominal Exam GI & Abdominal Exam: Soft, Normal Bowel Sounds. absent: Guarding, Rigid, Tenderness, Mass, Organomegaly, Rebound - Extremities Exam Extremities Exam: absent: Joint Swelling - Neurological Exam Neurological Exam: Alert, Awake, Oriented x3 Neuro motor strength exam: Left Upper Extremity: 5 - Psychiatric Exam Psychiatric exam: Normal Affect, Normal Mood - Skin Skin Exam: Dry, Intact, Normal Color, Warm Assessment and Plan - Assessment and Plan (Free Text) Assessment: 52 year old female with past medical history significant for alcoholic cirrhosis, ascites, depression who presented to the [facility] ED for dysphagia and coughing up blood. Patient has history of oropharynx abnormal with polypoid friable lesion from EGD in 10/2016. #Obstructing Hypopharyngeal mass #Esophageal Mass #Progressive Dysphagia #Change in voice #Chronic anemia #Thrombocytopenia #Alcoholic Liver Cirrhosis - MELDS 21 on admission, DF 54. #Previous friable polypoid lesion of the opropharynx - EGD 2016 #Elevated INR #hx of Barretts Plan: - EGD 11/04/17 revealed obstructing hypopharyngeal mass. - Case discussed with primary and surgical team - She will need biopsy for diagnosis and likely further work-up per oncology team. surgical G tube - Protonix - H/H stable at this time continue to monitor -please reconsult if needed D/W Dr. Herrera <Olman Herrera V - Last Filed: 11/07/17 23:05> Objective - Vital Signs/Intake and Output Vital Signs (last 24 hours): Temp Pulse Resp BP Pulse Ox 97.8 F 100 H 20 105/74 94 L 11/07/17 14:00 11/07/17 14:00 11/07/17 14:00 11/07/17 14:00 11/07/17 14:00 Intake and Output: 11/07/17 11/08/17 18:59 06:59 Intake Total 0 Balance 0 - Medications Medications: Current Medications Acetaminophen (Tylenol 650 Mg Supp) 650 mg RC Q6H PRN PRN Reason: Pain, moderate (4-7) Sodium Chloride (Sodium Chloride 0.9%) 1,000 mls @ 100 mls/hr IV .Q10H [facility] Last Admin: 11/06/17 17:10 Dose: 100 mls/hr Amino Acids/Electrolytes/Dextrose (Clinimix 4.25/5 % "E" (2000 Ml)) 2,000 mls @ 83 mls/hr IV .Q24H [facility] Stop: 11/09/17 17:59 Last Admin: 11/07/17 18:45 Dose: 83 mls/hr Fat Emulsion Intravenous (Intralipid 20%) 250 mls @ 21 mls/hr IV 1800 [facility] Stop: 11/09/17 17:59 Last Admin: 11/07/17 18:45 Dose: 21 mls/hr Lorazepam (Ativan) 1 mg IVP Q6H PRN; Protocol PRN Reason: Anxiety Last Admin: 11/06/17 17:08 Dose: 1 mg Metronidazole (Metrogel Cream) 0 gm TOP BID [facility] Last Admin: 11/07/17 17:00 Dose: 1 applic Morphine Sulfate (Morphine) 1 mg IVP Q4H PRN PRN Reason: Pain, moderate (4-7) Last Admin: 11/07/17 20:21 Dose: 1 mg Pantoprazole Sodium (Protonix Inj) 40 mg IVP Q12 [facility] Last Admin: 11/07/17 22:11 Dose: 40 mg - Labs Labs: 11/07/17 07:00 11/07/17 07:00 PT 14.7 SECONDS (9.4-12.5) H 11/04/17 08:45 INR 1.27 11/04/17 08:45 APTT 30.9 Seconds (25.1-36.5) 11/03/17 08:45 Attending/Attestation - Attestation I have personally seen and examined this patient.: Yes I have fully participated in the care of the patient.: Yes I have reviewed all pertinent clinical information, including history, physical exam and plan: Yes Notes (Text): This is an addendum to GI progress report dictated by the GI Fellow.The patient was seen and examined earlier. Medical records, lab studies, imagings were reviewed. Last 24 hours events reviewed. Agreed with the above treatment plan as outlined in GI Fellow 's notes with the addition of the following Cirrhosis of the liver decompensated Large pharyngeal/hypopharyngeal lesion Gastroscope could not be advanced through cricopharynx in view of contact bleeding and friability of the lesion in that area ENT evaluation at the time of surgical G-tube placement scheduled Discussed with oncologist planned only RT for the pharyngeal/hypopharyngeal lesion 11/07/17 22:57
--- NOTE | 2017-11-07 14:54 | CP.PCM.PN ---
<JvCoryyannickkarla - Last Filed: 11/07/17 14:51> Subjective - Date & Time of Evaluation Date of Evaluation: 11/07/17 Time of Evaluation: 14:51 - Subjective Subjective: Coryyannickkarla Melloelma PGY1 Progress Note for Dr. Evans Pt was examined at bedside this morning. She reports some back pain, persistent from yesterday. She also reports continuation of the bloody vomiting overnight. She has no other complaints. She denies any chest pain, shortness of breath, abdominal pain, nausea, diarrhea. Objective - Vital Signs/Intake and Output Vital Signs (last 24 hours): Temp Pulse Resp BP Pulse Ox 97.9 F 94 H 18 98/58 L 96 11/07/17 06:00 11/07/17 06:00 11/07/17 06:00 11/07/17 06:00 11/07/17 06:00 Intake and Output: 11/07/17 11/07/17 06:59 18:59 Intake Total 1496 Balance 1496 - Medications Medications: Current Medications Acetaminophen (Tylenol 650 Mg Supp) 650 mg RC Q6H PRN PRN Reason: Pain, moderate (4-7) Sodium Chloride (Sodium Chloride 0.9%) 1,000 mls @ 100 mls/hr IV .Q10H [facility] Last Admin: 11/06/17 17:10 Dose: 100 mls/hr Amino Acids/Electrolytes/Dextrose (Clinimix 4.25/5 % "E" (2000 Ml)) 2,000 mls @ 83 mls/hr IV .Q24H [facility] Stop: 11/09/17 17:59 Last Admin: 11/06/17 17:09 Dose: 83 mls/hr Fat Emulsion Intravenous (Intralipid 20%) 250 mls @ 21 mls/hr IV 1800 [facility] Stop: 11/09/17 17:59 Last Admin: 11/06/17 17:08 Dose: 21 mls/hr Potassium Chloride (Potassium Chloride 20 Meq/100 Ml) 20 meq in 100 mls @ 50 mls/hr IVPB Q2H [facility] Stop: 11/07/17 15:29 Lorazepam (Ativan) 1 mg IVP Q6H PRN; Protocol PRN Reason: Anxiety Last Admin: 11/06/17 17:08 Dose: 1 mg Metronidazole (Metrogel Cream) 0 gm TOP BID [facility] Last Admin: 11/07/17 09:23 Dose: 1 applic Morphine Sulfate (Morphine) 1 mg IVP Q4H PRN PRN Reason: Pain, moderate (4-7) Last Admin: 11/07/17 12:22 Dose: 1 mg Pantoprazole Sodium (Protonix Inj) 40 mg IVP Q12 [facility] Last Admin: 11/07/17 09:23 Dose: 40 mg - Labs Labs: 11/07/17 07:00 11/07/17 07:00 PT 14.7 SECONDS (9.4-12.5) H 11/04/17 08:45 INR 1.27 11/04/17 08:45 APTT 30.9 Seconds (25.1-36.5) 11/03/17 08:45 - Constitutional Appears: Well, No Acute Distress - Head Exam Head Exam: ATRAUMATIC, NORMOCEPHALIC Additional comments: purpura on L side of forehead, improving - Eye Exam Eye Exam: EOMI Pupil Exam: NORMAL ACCOMODATION - ENT Exam ENT Exam: Mucous Membranes Moist - Respiratory Exam Respiratory Exam: Clear to Ausculation Bilateral, NORMAL BREATHING PATTERN. absent: Rales, Rhonchi, Wheezes - Cardiovascular Exam Cardiovascular Exam: REGULAR RHYTHM, +S1, +S2. absent: Diastolic murmur, Gallop, Rubs - GI/Abdominal Exam GI & Abdominal Exam: Soft, Normal Bowel Sounds. absent: Distended, Guarding, Tenderness - Extremities Exam Extremities Exam: Normal Inspection. absent: Pedal Edema - Neurological Exam Neurological Exam: Alert, Awake, Oriented x3 Assessment and Plan - Assessment and Plan (Free Text) Assessment: 52yoF PMH EtoH abuse and cirrhosis, presented to ED with hematemesis, being evaluated and treated for pharyngeal mass. 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 Javier lion appreciated - Heme/Onc consulted, Dr. Cristofer lion appreciated - ENT consulted, Dr. Paty lion appreciated - Rad/Onc consulted, Dr. Carrero - will f/u recs after biopsy - Gen sx consulted, Dr. Lobato, - recs appreciated Thrombocytopenia - Plt 61 today - check INR for OR on Thursday - 1 U Irradiated products given 11/04 - transfuse w/ FFP and 1 u platelets prior to procedures, as per heme/onc - Heme/Onc consulted, Dr. Cristofer lion appreciated Back Pain - likely secondary to bed positioning - encouraged pt to sit in chair and walk around - start morphine 1 q4h Liver cirrhosis - CT abd: cirrhotic liver, no acute findings - GI consult: Dr. Herrera Hypomagnesemia - Mg 1.4, repleted - continue to monitor Hypokalemia - 2.8, resolved - continue to monitor Hypophosphatemia - P 2.2, repleted - continue to monitor Alcohol Abuse - CIWA 0 yesterday - continue Ativan 1 q6 PRN - aspiration, fall, and seizure precautions - Advised cessation PPX - SCD - Protonix Case discussed and plan reviewed with Dr. Evans <Kofi Evans - Last Filed: 11/07/17 16:36> Objective - Vital Signs/Intake and Output Vital Signs (last 24 hours): Temp Pulse Resp BP Pulse Ox 97.8 F 100 H 20 105/74 94 L 11/07/17 14:00 11/07/17 14:00 11/07/17 14:00 11/07/17 14:00 11/07/17 14:00 Intake and Output: 11/07/17 11/07/17 06:59 18:59 Intake Total 1496 Balance 1496 - Medications Medications: Current Medications Acetaminophen (Tylenol 650 Mg Supp) 650 mg RC Q6H PRN PRN Reason: Pain, moderate (4-7) Sodium Chloride (Sodium Chloride 0.9%) 1,000 mls @ 100 mls/hr IV .Q10H [facility] Last Admin: 11/06/17 17:10 Dose: 100 mls/hr Amino Acids/Electrolytes/Dextrose (Clinimix 4.25/5 % "E" (2000 Ml)) 2,000 mls @ 83 mls/hr IV .Q24H [facility] Stop: 11/09/17 17:59 Last Admin: 11/06/17 17:09 Dose: 83 mls/hr Fat Emulsion Intravenous (Intralipid 20%) 250 mls @ 21 mls/hr IV 1800 [facility] Stop: 11/09/17 17:59 Last Admin: 11/06/17 17:08 Dose: 21 mls/hr Lorazepam (Ativan) 1 mg IVP Q6H PRN; Protocol PRN Reason: Anxiety Last Admin: 11/06/17 17:08 Dose: 1 mg Metronidazole (Metrogel Cream) 0 gm TOP BID [facility] Last Admin: 11/07/17 09:23 Dose: 1 applic Morphine Sulfate (Morphine) 1 mg IVP Q4H PRN PRN Reason: Pain, moderate (4-7) Last Admin: 11/07/17 12:22 Dose: 1 mg Pantoprazole Sodium (Protonix Inj) 40 mg IVP Q12 [facility] Last Admin: 11/07/17 09:23 Dose: 40 mg - Labs Labs: 11/07/17 07:00 11/07/17 07:00 PT 14.7 SECONDS (9.4-12.5) H 11/04/17 08:45 INR 1.27 11/04/17 08:45 APTT 30.9 Seconds (25.1-36.5) 11/03/17 08:45 Attending/Attestation - Attestation I have personally seen and examined this patient.: Yes I have fully participated in the care of the patient.: Yes I have reviewed all pertinent clinical information, including history, physical exam and plan: Yes Notes (Text): 11/07/17 16:36 52 year old female with past medical history of alcohol cirrhosis who presented with complaint of hematemesis and dysphagia. She has history of friable polypoid lesion of the oropharynx. This was also seen on EGD by GI earlier this week. ENT is following. Plan for possible biopsy next week. Hematology/oncology and radiation/oncology are following. Surgery is also following for surgical G-tube placement next week. Continue to monitor thrombocytopenia. Continue with NPO with iv fluids and protonix. Patient also started on PPN. She was counselled on alcohol abstinence. Will replete and repeat lytes. Anwar Cristina, MD Hospitalist.
[2017-11-07] MEDS: Fat Emulsion 20% IV 250 ML IV SCH (18:45)
--- NOTE | 2017-11-08 05:55 | PN ---
DATE: 11/07/2017 ONCOLOGY FOLLOWUP PROGRESS NOTE LOCATION: Patient is in 574, bed 2. SUBJECTIVE: This is a 52-year-old female who was admitted to the hospital with progressive emesis versus coughing up of blood and the background history of having severe cirrhosis of the liver associated with thrombocytopenia and coagulopathy. Patient underwent upper endoscopy and the previously documented oropharyngeal lesion, which seemed to have gotten bigger, last time it was documented was in 09/2016 and since then the lesion has progressed. There was tough time scoping the patient. Patient lesion as well which could not be clearly defined because of the difficulty in the endoscopy. Followup CAT scan of the neck has revealed at least 2 separate lesions, 1 in the oropharynx, the other one is in the supraglottic region, probably extending from the back to the front without compromising the larynx at this point in time, whether this is a contiguous extension of 1 lesion or there are 2 separate lesions is difficult to say. Patient has been seen by ENT, has been seen by Radiation Oncology, both of whom have done laryngoscopies on this patient without doing biopsies in view of the low platelet count and the coagulopathy. Patient needs to have coordinated efforts to do a biopsy and placement of a surgical gastrostomy tube in preparation for whatever needs to be offered to the patient. We have discussed with the patient in the past including discussions with her brother. Patient wants to be aggressive with her treatment at this point in time and that may include diversion for food replacement while the patient gets radiation along with her plus minus targeted therapy with Erbitux if the hematological parameters allow us to do so. Patient currently is on TPN with the peripherally placed PICC line and the potassium is being corrected. Patient is being assessed for surgical jejunostomy tube along with coordination for a biopsy to get a histologic confirmation of the lesion in the oropharynx and the upper larynx. Patient may need to get hematologic products including FFP and platelets in preparation for the planned surgery and happy discussed with both surgery and ENT so that everything can be coordinated and done at the same time. Subjectively patient is seen at the bedside. Denies any abdominal pain. She is taking diet as tolerated. REVIEW OF SYSTEMS: A 12-point review of systems was conducted and nothing new except for what is mentioned in the HPI. PHYSICAL EXAMINATION VITAL SIGNS: T max is 97.9, pulse is 94, respirations 18, blood pressure 98/58, pulse ox is 96%. GENERAL: Patient is still coughing up bringing up small amounts of bloody phlegm. HEENT: Patient has temporal muscle wasting noted. Head normocephalic, atraumatic. Conjunctivae pale. Sclerae anicteric. Pupils are equally reactive to light and accommodation. Examination of the oropharynx reveals tongue to be moist. No oral lesions are seen. Patient has poor dentition. NECK: Supple. There is no adenopathy. LUNGS: Relatively clear to percussion and auscultation. CARDIOVASCULAR: S1, S2 to be normal. No gallop or murmurs are heard. ABDOMEN: Soft, nontender. No rebound, rigidity or guarding is noted. Liver and spleen are not palpable. EXTREMITIES: Reveals no cyanosis, clubbing, or edema. NEUROLOGIC: Patient is awake, alert and oriented in no acute distress. ASSESSMENT, NOTES AND PLAN: Patient is a 52-year-old female with significant medical history for alcohol related cirrhosis, splenic sequestration, coagulopathy, depression who presents to [facility] with dysphagia and coughing up blood with documented evidence now of lesion in the oropharynx and probably in the upper larynx as well with a contiguous extension of one lesion from the pharynx extending anteriorly is difficult to say at this point in time till more definitive procedures done under anesthesia. Patient in view of the thrombocytopenia and coagulopathy related alcoholic liver disease in preparation for the jejunostomy and the biopsy to document what type of cancer it is, will need to have blood products including FFP and platelets given in preparation for the surgery. We will need to coordinate the treatment plan. We will need to discuss both with the primary medical team, GI Surgery and ENT to make this possible. We will also speak to Dr. Carrero as well who will get involved after the biopsy and diagnosis is available. Patient also needs dental care and dental issues answered prior to initiation of any therapy as dental extraction may be necessary in preparation for any planned radiation. We will try to coordinate that and see if dental team can see her while she is in hospital. This is a complex patient with multiple comorbid medical issues. We will try to speak to all the team involved either on the weekend or on Thursday. Time spent with the patient greater than 80 minutes correlating all the facts and going over all the labs. Loni Cleveland MD
--- NOTE | 2017-11-08 07:18 | CP.PCM.PN ---
Subjective - Date & Time of Evaluation Date of Evaluation: 11/08/17 Time of Evaluation: 07:15 - Subjective Subjective: General Surgery - Dr. Lobato Pt S&E. NAHUN. PT complaining of headache and backache, otherwise no acute complaints this morning. She denies any Nausea/vomiting, Fevers/Chills, SOb/Chest pain. Pt aware of plan for surgical feeding tube tomorrow. Objective - Vital Signs/Intake and Output Vital Signs (last 24 hours): Temp Pulse Resp BP Pulse Ox 97.8 F 100 H 20 105/74 94 L 11/07/17 14:00 11/07/17 14:00 11/07/17 14:00 11/07/17 14:00 11/07/17 14:00 Intake and Output: 11/08/17 11/08/17 06:59 18:59 Intake Total 2392 Output Total 400 Balance 1991 - Medications Medications: Current Medications Acetaminophen (Tylenol 650 Mg Supp) 650 mg RC Q6H PRN PRN Reason: Pain, moderate (4-7) Sodium Chloride (Sodium Chloride 0.9%) 1,000 mls @ 100 mls/hr IV .Q10H [facility] Last Admin: 11/06/17 17:10 Dose: 100 mls/hr Amino Acids/Electrolytes/Dextrose (Clinimix 4.25/5 % "E" (2000 Ml)) 2,000 mls @ 83 mls/hr IV .Q24H [facility] Stop: 11/09/17 17:59 Last Admin: 11/07/17 18:45 Dose: 83 mls/hr Fat Emulsion Intravenous (Intralipid 20%) 250 mls @ 21 mls/hr IV 1800 [facility] Stop: 11/09/17 17:59 Last Admin: 11/07/17 18:45 Dose: 21 mls/hr Lorazepam (Ativan) 1 mg IVP Q6H PRN; Protocol PRN Reason: Anxiety Last Admin: 11/06/17 17:08 Dose: 1 mg Metronidazole (Metrogel Cream) 0 gm TOP BID [facility] Last Admin: 11/07/17 17:00 Dose: 1 applic Morphine Sulfate (Morphine) 1 mg IVP Q4H PRN PRN Reason: Pain, moderate (4-7) Last Admin: 11/07/17 20:21 Dose: 1 mg Pantoprazole Sodium (Protonix Inj) 40 mg IVP Q12 [facility] Last Admin: 11/07/17 22:11 Dose: 40 mg - Labs Labs: 11/07/17 07:00 11/07/17 07:00 PT 14.7 SECONDS (9.4-12.5) H 11/04/17 08:45 INR 1.27 11/04/17 08:45 APTT 30.9 Seconds (25.1-36.5) 11/03/17 08:45 - Constitutional Appears: No Acute Distress - Head Exam Head Exam: ATRAUMATIC, NORMAL INSPECTION, NORMOCEPHALIC - Eye Exam Eye Exam: Normal appearance - Respiratory Exam Respiratory Exam: NORMAL BREATHING PATTERN. absent: Respiratory Distress - Cardiovascular Exam Cardiovascular Exam: REGULAR RHYTHM - GI/Abdominal Exam GI & Abdominal Exam: Soft. absent: Distended, Tenderness - Neurological Exam Neurological Exam: Alert, Awake - Psychiatric Exam Psychiatric exam: Normal Affect, Normal Mood - Skin Skin Exam: Dry, Intact Assessment and Plan - Assessment and Plan (Free Text) Assessment: 52F w/ PMH of ETOH abuse and Cirrhosis, presenting with dysphagia and hypopharyngeal mass Plan: - Continue NPO, TPN - Monitor and replace electrolytes - F/U CBC, may need blood products prior to OR (FFP/Platelets) - Tentative plan for OR tomorrow for Jejunosotomy feeding tube - Medical management as per primary Dw Dr. Luis Alfredo Gracia PGY4
[2017-11-08] MEDS: Morphine 2 mg/ml ISec IVP PRN ×3 (09:59→22:18)
[2017-11-08] MEDS: MetroNIDAZOLE 0.75% Cream(45 gm) TOP SCH (10:01)
[2017-11-08 12:25] LABS: ALB/GLOB RATIO 0.8 (1.1-1.8); ALBUMIN 2.3 g/dL (3.0-4.8); ALT/SGPT 27 U/L (7-56); AST/SGOT 22 U/L (14-36); BLOOD UREA NITROGEN 9 mg/dL (7-21); CALCIUM 7.6 mg/dL (8.4-10.5); GFR NON-AFRICAN AMERICAN > 60
[2017-11-08 12:31] LABS: BASO # 0.01 K/mm3 (0.0-2.0); BASO % 0.1 % (0.0-3.0); EOS # 0.1 (0.0-0.7); GRAN # 5.65 (1.4-6.5); GRAN % 76.8 % (50.0-68.0); HEMOGLOBIN 9.8 g/dL (12.0-16.0); LYMPH # 0.8 (1.2-3.4); LYMPH % 11.4 % (22.0-35.0); MEAN CELL VOLUME 98.7 fl (80.0-105.0); MEAN CORPUSCULAR HGB CONC 33.4 g/dl (31.0-37.0); MEAN PLATELET VOLUME 11.4 fl (7.0-11.0); MONO # 0.8 (0.1-0.6); MONO % 10.7 % (1.0-6.0); RBC 2.97 10^6/uL (3.5-6.1); WHITE BLOOD COUNT 7.4 10^3/ul (4.5-11.0)
[2017-11-08] MEDS ORDERED: Potassium Phosphate 15 MMOLE in Sodium Chloride 0.9% 250 ML IVPB ONE (12:37)
--- NOTE | 2017-11-08 12:49 | CP.PCM.PN ---
<Clive Carias - Last Filed: 11/08/17 12:39> Subjective - Date & Time of Evaluation Date of Evaluation: 11/08/17 Time of Evaluation: 12:39 - Subjective Subjective: Clive Carias PGY1 Progress Note for Dr. Evans Pt was examined at bedside this morning. She reports continuation of bloody vomiting and back pain. She denied any chest pain, abdominal pain, nausea, diarrhea, or shortness of breath. Objective - Vital Signs/Intake and Output Vital Signs (last 24 hours): Temp Pulse Resp BP Pulse Ox 98.5 F 97 H 18 95/64 L 96 11/08/17 06:00 11/08/17 06:00 11/08/17 06:00 11/08/17 06:00 11/08/17 06:00 Intake and Output: 11/08/17 11/08/17 06:59 18:59 Intake Total 2392 Output Total 400 Balance 1991 - Medications Medications: Current Medications Acetaminophen (Tylenol 650 Mg Supp) 650 mg RC Q6H PRN PRN Reason: Pain, moderate (4-7) Sodium Chloride (Sodium Chloride 0.9%) 1,000 mls @ 100 mls/hr IV .Q10H [facility] Last Admin: 11/06/17 17:10 Dose: 100 mls/hr Amino Acids/Electrolytes/Dextrose (Clinimix 4.25/5 % "E" (2000 Ml)) 2,000 mls @ 83 mls/hr IV .Q24H [facility] Stop: 11/09/17 17:59 Last Admin: 11/07/17 18:45 Dose: 83 mls/hr Fat Emulsion Intravenous (Intralipid 20%) 250 mls @ 21 mls/hr IV 1800 [facility] Stop: 11/09/17 17:59 Last Admin: 11/07/17 18:45 Dose: 21 mls/hr Potassium Chloride (Potassium Chloride 20 Meq/100 Ml) 20 meq in 100 mls @ 50 mls/hr IVPB Q2H [facility] Stop: 11/08/17 16:44 Potassium Phosphate 15 mmole/ (Sodium Chloride) 255 mls @ 42.5 mls/hr IVPB ONCE ONE Stop: 11/08/17 18:36 Lorazepam (Ativan) 1 mg IVP Q6H PRN; Protocol PRN Reason: Anxiety Last Admin: 11/06/17 17:08 Dose: 1 mg Metronidazole (Metrogel Cream) 0 gm TOP BID [facility] Last Admin: 11/08/17 10:01 Dose: 1 applic Morphine Sulfate (Morphine) 1 mg IVP Q4H PRN PRN Reason: Pain, moderate (4-7) Last Admin: 11/08/17 09:59 Dose: 1 mg Pantoprazole Sodium (Protonix Inj) 40 mg IVP Q12 [facility] Last Admin: 11/08/17 10:01 Dose: 40 mg - Labs Labs: 11/08/17 06:40 11/08/17 06:40 PT 14.7 SECONDS (9.4-12.5) H 11/04/17 08:45 INR 1.27 11/04/17 08:45 APTT 30.9 Seconds (25.1-36.5) 11/03/17 08:45 - Constitutional Appears: Well, No Acute Distress - Head Exam Head Exam: ATRAUMATIC, NORMOCEPHALIC Additional comments: purpura on L side of forehead improved - Eye Exam Eye Exam: EOMI, Normal appearance Pupil Exam: NORMAL ACCOMODATION - ENT Exam ENT Exam: Mucous Membranes Moist - Respiratory Exam Respiratory Exam: Clear to Ausculation Bilateral, NORMAL BREATHING PATTERN. absent: Rales, Rhonchi, Wheezes, Stridor - Cardiovascular Exam Cardiovascular Exam: REGULAR RHYTHM, +S1, +S2. absent: Gallop, Rubs, Murmur - GI/Abdominal Exam GI & Abdominal Exam: Soft, Normal Bowel Sounds. absent: Distended, Firm, Tenderness - Extremities Exam Extremities Exam: Normal Inspection. absent: Pedal Edema - Neurological Exam Neurological Exam: Alert, Awake, Oriented x3 - Psychiatric Exam Psychiatric exam: Depressed, Normal Affect Assessment and Plan - Assessment and Plan (Free Text) Assessment: 52yoF PMH EtoH abuse and cirrhosis, presented to ED with hematemesis, being evaluated and treated for pharyngeal mass. 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 Javier lion appreciated - Heme/Onc consulted, Dr. Cristofer lion appreciated - ENT consulted, Dr. Paty lion appreciated - Rad/Onc consulted, Dr. Carrero - will f/u recs after biopsy - Gen sx consulted, Dr. Lobato, - recs appreciated Thrombocytopenia - Plt 70 today - check INR for OR on Thursday - 1 U Irradiated products given 11/04 - transfuse w/ FFP and/or 1 u platelets prior to procedures, as per heme/onc - Heme/Onc consulted, Dr. Cristofer lion appreciated Back Pain - likely secondary to bed positioning - encouraged pt to sit in chair and walk around - start morphine 1 q4h Liver cirrhosis - CT abd: cirrhotic liver, no acute findings - GI consult: Dr. Herrera Hypomagnesemia - Mg 1.8, resolved - continue to monitor Hypokalemia - 3.1, repleted - continue to monitor Hypophosphatemia - P 2.2, repleted - continue to monitor Alcohol Abuse - CIWA 0 yesterday - continue Ativan 1 q6 PRN - aspiration, fall, and seizure precautions - Advised cessation PPX - SCD - Protonix Case discussed and plan reviewed with Dr. Evans <Kofi Evans - Last Filed: 11/08/17 13:39> Objective - Vital Signs/Intake and Output Vital Signs (last 24 hours): Temp Pulse Resp BP Pulse Ox 98.5 F 97 H 18 95/64 L 96 11/08/17 06:00 11/08/17 06:00 11/08/17 06:00 11/08/17 06:00 11/08/17 06:00 Intake and Output: 11/08/17 11/08/17 06:59 18:59 Intake Total 2392 Output Total 400 Balance 1991 - Medications Medications: Current Medications Acetaminophen (Tylenol 650 Mg Supp) 650 mg RC Q6H PRN PRN Reason: Pain, moderate (4-7) Sodium Chloride (Sodium Chloride 0.9%) 1,000 mls @ 100 mls/hr IV .Q10H [facility] Last Admin: 11/06/17 17:10 Dose: 100 mls/hr Amino Acids/Electrolytes/Dextrose (Clinimix 4.25/5 % "E" (2000 Ml)) 2,000 mls @ 83 mls/hr IV .Q24H [facility] Stop: 11/09/17 17:59 Last Admin: 11/07/17 18:45 Dose: 83 mls/hr Fat Emulsion Intravenous (Intralipid 20%) 250 mls @ 21 mls/hr IV 1800 [facility] Stop: 11/09/17 17:59 Last Admin: 11/07/17 18:45 Dose: 21 mls/hr Potassium Chloride (Potassium Chloride 20 Meq/100 Ml) 20 meq in 100 mls @ 50 mls/hr IVPB Q2H [facility] Stop: 11/08/17 16:44 Potassium Phosphate 15 mmole/ (Sodium Chloride) 255 mls @ 42.5 mls/hr IVPB ONCE ONE Stop: 11/08/17 18:36 Sodium Phosphate 15 mmole/ (Sodium Chloride) 255 mls @ 42.5 mls/hr IVPB ONCE ONE Stop: 11/08/17 18:58 Lorazepam (Ativan) 1 mg IVP Q6H PRN; Protocol PRN Reason: Anxiety Last Admin: 11/06/17 17:08 Dose: 1 mg Metronidazole (Metrogel Cream) 0 gm TOP BID [facility] Last Admin: 11/08/17 10:01 Dose: 1 applic Morphine Sulfate (Morphine) 1 mg IVP Q4H PRN PRN Reason: Pain, moderate (4-7) Last Admin: 11/08/17 09:59 Dose: 1 mg Pantoprazole Sodium (Protonix Inj) 40 mg IVP Q12 [facility] Last Admin: 11/08/17 10:01 Dose: 40 mg - Labs Labs: 11/08/17 06:40 11/08/17 06:40 PT 14.7 SECONDS (9.4-12.5) H 11/04/17 08:45 INR 1.27 11/04/17 08:45 APTT 30.9 Seconds (25.1-36.5) 11/03/17 08:45 Attending/Attestation - Attestation I have personally seen and examined this patient.: Yes I have fully participated in the care of the patient.: Yes I have reviewed all pertinent clinical information, including history, physical exam and plan: Yes Notes (Text): 11/08/17 13:37 52 year old female with past medical history of alcohol cirrhosis who presented with complaint of hematemesis and dysphagia. She has history of friable polypoid lesion of the oropharynx. This was also seen on EGD by GI last week. ENT is following. Plan for possible biopsy possibly tomorrow or Thursday. Hematology/oncology and radiation/oncology are also following. Plan for surgical G-tube placement tomorrow per surgery. Continue to monitor thrombocytopenia. May need platelets +/- FFT tomorrow prior to procedure. Continue with NPO with iv fluids and protonix. Continue with PPN. She was counselled on alcohol abstinence. Will replete and repeat lytes. Kofi Evans MD Hospitalist.
[2017-11-08] MEDS ORDERED: Sodium Phosphate 15 MMOLE in Sodium Chloride 0.9% 250 ML IVPB ONE (12:59)
[2017-11-08] MEDS: Fat Emulsion 20% IV 250 ML IV SCH (18:24)
[2017-11-09 06:37] LABS: INR 1.16; PARTIAL THROMBOPLASTIN TIME 29.6 Seconds (25.1-36.5); PROTHROMBIN TIME 13.4 SECONDS (9.4-12.5)
[2017-11-09 06:47] LABS: ALB/GLOB RATIO 0.8 (1.1-1.8); ALBUMIN 2.3 g/dL (3.0-4.8); ALT/SGPT 26 U/L (7-56); AST/SGOT 19 U/L (14-36); BLOOD UREA NITROGEN 9 mg/dL (7-21); CALCIUM 7.8 mg/dL (8.4-10.5); GFR NON-AFRICAN AMERICAN > 60
[2017-11-09 07:14] LABS: BASO # 0.01 K/mm3 (0.0-2.0); BASO % 0.2 % (0.0-3.0); EOS # 0.1 (0.0-0.7); GRAN # 3.62 (1.4-6.5); GRAN % 73.3 % (50.0-68.0); HEMOGLOBIN 8.8 g/dL (12.0-16.0); LYMPH # 0.5 (1.2-3.4); LYMPH % 10.5 % (22.0-35.0); MEAN CORPUSCULAR HEMOGLOBIN 32.7 pg (25.0-35.0); MEAN CORPUSCULAR HGB CONC 32.7 g/dl (31.0-37.0); MEAN PLATELET VOLUME 11.5 fl (7.0-11.0); MONO # 0.7 (0.1-0.6); RBC 2.69 10^6/uL (3.5-6.1); RED CELL DISTRIBUTION WIDTH 13.2 % (11.5-14.5); WHITE BLOOD COUNT 4.9 10^3/ul (4.5-11.0)
[2017-11-09] MEDS ORDERED: Bupivacaine 0.5% Inj(30mL) ONE (08:26)
[2017-11-09] MEDS ORDERED: Propofol 10 mg/ml Inj (20 ML) ONE (08:33)
[2017-11-09] MEDS ORDERED: Midazolam 2 MG/2 ML VIAL ONE (08:33)
[2017-11-09] MEDS ORDERED: Etomidate 20 mg/10ml Inj IV ONE (08:38)
[2017-11-09] MEDS ORDERED: Succinylcholine 200 mg/10 ml Inj IV ONE (08:38)
[2017-11-09] MEDS ORDERED: Lidocaine 2% Jelly (30 ml) ONE (08:53)
[2017-11-09] MEDS ORDERED: Lidocaine 4% 50 mL Topical Sol (OR USE) ONE (08:53)
[2017-11-09] MEDS ORDERED: Bupivacaine 0.5% Inj(30mL) IJ ONE (09:06)
[2017-11-09] MEDS ORDERED: CeFAZolin 1 gm in NS 100ml IVPB ONE (10:02)
--- NOTE | 2017-11-09 11:56 | PCM.SURG1 ---
Surgeon's Initial Post Op Note - Surgeon's Notes Surgeon: Dr. Armijo Senior Quality Assurance Engineer: Sophia Lockhart [id number] Type of Anesthesia: General Endo Pre-Operative Diagnosis: Pharyngeal mass Operative Findings: see operative dictation note Post-Operative Diagnosis: Pharyngeal Mass with obstruction Operation Performed: Insertion of Jejunostomy tube Specimen/Specimens Removed: none Estimated Blood Loss: EBL {In ML}: 0 Blood Products Given: Platlets Drains Used: Ostomy Device Date of Surgery/Procedure: 11/09/17 Time of Surgery/Procedure: 11:56
[2017-11-09] MEDS: Morphine 2 mg/ml ISec IVP PRN (14:31)
--- NOTE | 2017-11-09 15:13 | CP.PCM.PN ---
<Clive Carias - Last Filed: 11/09/17 15:09> Subjective - Date & Time of Evaluation Date of Evaluation: 11/09/17 Time of Evaluation: 11:00 - Subjective Subjective: Clive Carias PGY1 Progress Note for Dr. Rivas Pt was examined at bedside this morning. She continued to have blood in her vomit overnight (1 episode) and back pain. She denied any chest pain, shortness of breath, abdominal pain, nausea, or diarrhea. Objective - Vital Signs/Intake and Output Vital Signs (last 24 hours): Temp Pulse Resp BP Pulse Ox 98.3 F 73 18 88/60 L 97 11/09/17 13:56 11/09/17 13:56 11/09/17 13:56 11/09/17 13:56 11/09/17 13:56 Intake and Output: 11/09/17 11/09/17 06:59 18:59 Intake Total 291 Output Total 600 Balance -600 291 - Medications Medications: Current Medications Acetaminophen (Tylenol 650 Mg Supp) 650 mg RC Q6H PRN PRN Reason: Pain, moderate (4-7) Fentanyl (Fentanyl) 25 mcg IV Q5M PRN PRN Reason: Pain, moderate (4-7) Sodium Chloride (Sodium Chloride 0.9%) 1,000 mls @ 100 mls/hr IV .Q10H [facility] Last Admin: 11/06/17 17:10 Dose: 100 mls/hr Amino Acids/Electrolytes/Dextrose (Clinimix 4.25/5 % "E" (2000 Ml)) 2,000 mls @ 83 mls/hr IV .Q24H [facility] Stop: 11/12/17 17:59 Fat Emulsion Intravenous (Intralipid 20%) 250 mls @ 21 mls/hr IV 1800 [facility] Stop: 11/12/17 17:59 Lorazepam (Ativan) 1 mg IVP Q6H PRN; Protocol PRN Reason: Anxiety Last Admin: 11/06/17 17:08 Dose: 1 mg Metoclopramide HCl (Reglan) 10 mg IV ONCE PRN PRN Reason: Nausea/Vomiting Metronidazole (Metrogel Cream) 0 gm TOP BID [facility] Last Admin: 11/08/17 10:01 Dose: 1 applic Morphine Sulfate (Morphine) 1 mg IVP Q4H PRN PRN Reason: Pain, moderate (4-7) Last Admin: 11/09/17 14:31 Dose: 1 mg Pantoprazole Sodium (Protonix Inj) 40 mg IVP Q12 [facility] Last Admin: 11/08/17 22:03 Dose: 40 mg - Labs Labs: 11/09/17 06:00 11/09/17 06:00 PT 13.4 SECONDS (9.4-12.5) H 11/09/17 06:00 INR 1.16 11/09/17 06:00 APTT 29.6 Seconds (25.1-36.5) 11/09/17 06:00 - Constitutional Appears: Well, No Acute Distress - Head Exam Head Exam: ATRAUMATIC, NORMOCEPHALIC - Eye Exam Eye Exam: EOMI, Normal appearance Pupil Exam: NORMAL ACCOMODATION - ENT Exam ENT Exam: Mucous Membranes Moist - Respiratory Exam Respiratory Exam: Clear to Ausculation Bilateral, NORMAL BREATHING PATTERN. absent: Rales, Rhonchi, Wheezes, Stridor - Cardiovascular Exam Cardiovascular Exam: REGULAR RHYTHM, +S1, +S2. absent: Gallop, Rubs, Murmur - GI/Abdominal Exam GI & Abdominal Exam: Soft, Normal Bowel Sounds. absent: Distended, Tenderness - Extremities Exam Extremities Exam: Normal Inspection. absent: Pedal Edema - Neurological Exam Neurological Exam: Alert, Awake, Oriented x3 - Psychiatric Exam Psychiatric exam: Depressed Assessment and Plan - Assessment and Plan (Free Text) Assessment: 52yoF PMH EtoH abuse and cirrhosis, presented to ED with hematemesis, being evaluated and treated for pharyngeal mass. POD#0 s/p jejunostomy tube insertion. ENT to perform bx on 11/11/17. 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 Herrera - recs appreciated - Heme/Onc consulted, Dr. Cristofer lion appreciated - ENT consulted, Dr. Paty lion appreciated - Rad/Onc consulted, Dr. Carrero - glenn f/u recs after biopsy - Gen sx consulted, Dr. Lobato, - recs appreciated Thrombocytopenia - Plt 60 today - INR 1.16 - 1 u Irradiated plt given today pre-sx - 1 U Irradiated plt + 1u FFP given 11/04 - transfuse w/ FFP and/or 1 u platelets prior to procedures, as per heme/onc - Heme/Onc consulted, Dr. Cristofer lion appreciated Back Pain - likely secondary to bed positioning - encouraged pt to sit in chair - continue morphine 1 q4h Liver cirrhosis - CT abd: cirrhotic liver, no acute findings - GI consult: Dr. Herrera Hypomagnesemia - Mg 1.7, resolved - continue to monitor Hypokalemia - 4.0, resolved - continue to monitor Hypophosphatemia - P 4.5, resolved - continue to monitor Alcohol Abuse - continue Ativan 1 q6 PRN - aspiration, fall, and seizure precautions - Advised cessation PPX - SCD - Protonix Case discussed and plan reviewed with Dr. Rivas. <Aden Rivas - Last Filed: 11/12/17 17:38> Objective - Vital Signs/Intake and Output Vital Signs (last 24 hours): Temp Pulse Resp BP Pulse Ox 98.4 F 93 H 18 98/67 L 95 11/12/17 14:00 11/12/17 14:00 11/12/17 14:00 11/12/17 14:00 11/12/17 14:00 Intake and Output: 11/12/17 11/12/17 06:59 18:59 Intake Total 0 Balance 0 - Medications Medications: Current Medications Fentanyl (Duragesic) 1 patch TD Q72H [facility] Last Admin: 11/12/17 13:48 Dose: 1 patch Sodium Chloride (Sodium Chloride 0.9%) 1,000 mls @ 100 mls/hr IV .Q10H [facility] Last Admin: 11/10/17 11:03 Dose: Not Given Lorazepam (Ativan) 1 mg IVP Q6H PRN; Protocol PRN Reason: Anxiety Last Admin: 11/11/17 09:07 Dose: 1 mg Metoclopramide HCl (Reglan) 10 mg IV ONCE PRN PRN Reason: Nausea/Vomiting Metoclopramide HCl (Reglan) 10 mg IV ONCE PRN PRN Reason: Nausea/Vomiting Metronidazole (Metrogel Cream) 0 gm TOP BID [facility] Last Admin: 11/12/17 09:50 Dose: 1 applic Pantoprazole Sodium (Protonix Inj) 40 mg IVP Q12 [facility] Last Admin: 11/12/17 09:47 Dose: 40 mg - Labs Labs: 11/12/17 06:20 11/12/17 06:20 PT 11.6 SECONDS (9.4-12.5) 11/11/17 04:30 INR 1.02 11/11/17 04:30 APTT 26.9 Seconds (25.1-36.5) 11/11/17 04:30 Attending/Attestation - Attestation I have personally seen and examined this patient.: Yes I have fully participated in the care of the patient.: Yes I have reviewed all pertinent clinical information, including history, physical exam and plan: Yes Notes (Text): 11/12/17 17:38 Medical record note made by the resident after discussion with my direction and input after the patient was personally seen and examined by me. I have reviewed the chart and agree that the record accurately reflects by personal performance of the history, physical exam, data review, and medical decision-making, in the course for the patient. I have also personally directed the plan of care.
[2017-11-09] MEDS ORDERED: HYDROmorphone 0.5 mg/0.5 ml ISec IVP PRN (15:54)
[2017-11-09] MEDS ORDERED: HYDROmorphone 1 mg/ml ISec IVP PRN (15:58)
[2017-11-09] MEDS: Fat Emulsion 20% IV 250 ML IV SCH (17:18)
[2017-11-09] MEDS: MetroNIDAZOLE 0.75% Cream(45 gm) TOP SCH ×2 (18:40→18:41)
[2017-11-10 00:07] LABS: HEMOGLOBIN 7.8 g/dL (12.0-16.0); MEAN CELL VOLUME 99.6 fl (80.0-105.0); MEAN CORPUSCULAR HEMOGLOBIN 33.3 pg (25.0-35.0); MEAN CORPUSCULAR HGB CONC 33.5 g/dl (31.0-37.0); MEAN PLATELET VOLUME 10.5 fl (7.0-11.0); RBC 2.34 10^6/uL (3.5-6.1); WHITE BLOOD COUNT 7.7 10^3/ul (4.5-11.0)
[2017-11-10 00:08] LABS: ALB/GLOB RATIO 0.9 (1.1-1.8); ALBUMIN 2.4 g/dL (3.0-4.8); ALT/SGPT 25 U/L (7-56); AST/SGOT 22 U/L (14-36); BLOOD UREA NITROGEN 9 mg/dL (7-21); CALCIUM 7.9 mg/dL (8.4-10.5); GFR NON-AFRICAN AMERICAN > 60
--- NOTE | 2017-11-10 01:37 | OP ---
PROCEDURE DATE: 11/03/2017 PREOPERATIVE DIAGNOSES: Malnutrition and esophageal mass. POSTOPERATIVE DIAGNOSES: Malnutrition and esophageal mass. PROCEDURE PERFORMED: Jejunostomy tube placement. SURGEON: Timo Lobato MD CHEMICAL TECHNICIAN: Dr. Lemon ANESTHESIOLOGIST: Ramos Marvin MD ANESTHESIA: General endotracheal anesthesia. ESTIMATED BLOOD LOSS: Minimal. SPECIMEN: None. INDICATIONS: The patient is a 52-year-old female with history of weight loss and dysphagia who was diagnosed with a mass in the area of the esophagus and pharynx. The patient is currently undergoing workup for the diagnosis and due to the fact that she cannot swallow solid foods, was scheduled for the jejunostomy tube placement. DESCRIPTION OF PROCEDURE: The patient was brought to the operating room and placed on the operating room table in a supine position. The patient was connected to the EKG, blood pressure and pulse oximetry monitors. The patient then underwent general endotracheal anesthesia and was prepped and draped in the usual sterile fashion. First, standard time-out procedure took place when everybody in the room agreed as to the patient's identity, diagnoses and procedure to be performed. Using #15 blade, an incision was made in the midline extending for about 8 cm next to the umbilicus. This was carried through the subcutaneous fashion down to the abdominal cavity. Upon opening of the abdominal cavity, it was noted that the small bowel appeared to be within normal limit and was collapsed. Colon appeared to be also normal looking with no distention. I then proceeded carefully grabbing small bowel and running it all the way to the ligament of Treitz. Once it was done, the segment of about 30 cm was left proximally and this portion was picked for the placement of the jejunostomy tube. First, 18-Malay red rubber catheter was prepared with making extra holes in it for insertion. It was placed via the abdominal wall on the left lateral aspect of the rectus muscle and brought into the small bowel. Small enterotomy was made where the purse-string stitch was placed and the tube was placed into the small bowel. The purse-string was then closed and the catheter itself was tunneled on the outside of the small bowel wall by invaginating it into the small bowel wall. The shelves all brought in against the abdominal wall next to the opening for the jejunostomy tube exit site and this was all sutured to the anterior abdominal wall. A 3-0 silk stitches were used for that purpose. The patient then had tube irrigated. There was good flush back of the yellowish fluid. The jejunostomy tube was secured in place using 3-0 nylon stitches and the abdominal cavity was closed using 0 PDS for the fascia, 3-0 Vicryl for deep dermal layers and 4-0 Monocryl for skin. A sterile Dermabond dressing was applied to the wound. The patient tolerated the procedure well and there were no complications. The patient was awakened and transferred to the recovery room for further observation. Timo Lobato MD
[2017-11-10 07:01] LABS: BASO # 0.02 K/mm3 (0.0-2.0); BASO % 0.3 % (0.0-3.0); EOS % 0.5 % (1.5-5.0); GRAN # 5.56 (1.4-6.5); GRAN % 72.5 % (50.0-68.0); HEMOGLOBIN 7.9 g/dL (12.0-16.0); LYMPH # 0.9 (1.2-3.4); LYMPH % 11.7 % (22.0-35.0); MEAN CELL VOLUME 99.6 fl (80.0-105.0); MEAN CORPUSCULAR HEMOGLOBIN 32.5 pg (25.0-35.0); MEAN CORPUSCULAR HGB CONC 32.6 g/dl (31.0-37.0); MEAN PLATELET VOLUME 10.4 fl (7.0-11.0); MONO # 1.2 (0.1-0.6); RBC 2.43 10^6/uL (3.5-6.1); RED CELL DISTRIBUTION WIDTH 13.1 % (11.5-14.5); WHITE BLOOD COUNT 7.7 10^3/ul (4.5-11.0)
[2017-11-10 07:32] LABS: ALB/GLOB RATIO 0.9 (1.1-1.8); ALBUMIN 2.4 g/dL (3.0-4.8); ALT/SGPT 20 U/L (7-56); AST/SGOT 24 U/L (14-36); BLOOD UREA NITROGEN 9 mg/dL (7-21); CALCIUM 7.9 mg/dL (8.4-10.5); GFR NON-AFRICAN AMERICAN > 60
--- NOTE | 2017-11-10 08:03 | CP.PCM.PN ---
Subjective - Date & Time of Evaluation Date of Evaluation: 11/10/17 Time of Evaluation: 07:59 - Subjective Subjective: Surgery: Luis Alfredo Patient still with pain today at site of J tube. She denies n/v/f/c. She complains of mild headache. Objective - Vital Signs/Intake and Output Vital Signs (last 24 hours): Temp Pulse Resp BP Pulse Ox 97.9 F 76 18 90/57 L 98 11/09/17 23:19 11/09/17 23:19 11/09/17 23:19 11/09/17 23:19 11/09/17 23:19 Intake and Output: 11/10/17 11/10/17 06:59 18:59 Intake Total 1561 Output Total 400 Balance 1561 -400 - Medications Medications: Current Medications Fentanyl (Fentanyl) 25 mcg IV Q5M PRN PRN Reason: Pain, moderate (4-7) Hydromorphone HCl (Dilaudid) 0.5 mg IVP Q4H PRN PRN Reason: Pain, severe (8-10) Amino Acids/Electrolytes/Dextrose (Clinimix 4.25/5 % "E" (2000 Ml)) 2,000 mls @ 83 mls/hr IV .Q24H [facility] Stop: 11/12/17 17:59 Last Admin: 11/09/17 17:19 Dose: 83 mls/hr Fat Emulsion Intravenous (Intralipid 20%) 250 mls @ 21 mls/hr IV 1800 [facility] Stop: 11/12/17 17:59 Last Admin: 11/09/17 17:18 Dose: 21 mls/hr Lorazepam (Ativan) 1 mg IVP Q6H PRN; Protocol PRN Reason: Anxiety Last Admin: 11/09/17 21:20 Dose: 1 mg Metoclopramide HCl (Reglan) 10 mg IV ONCE PRN PRN Reason: Nausea/Vomiting Metronidazole (Metrogel Cream) 0 gm TOP BID [facility] Last Admin: 11/09/17 18:41 Dose: 1 applic Morphine Sulfate (Morphine) 1 mg IVP Q4H PRN PRN Reason: Pain, moderate (4-7) Last Admin: 11/09/17 14:31 Dose: 1 mg Pantoprazole Sodium (Protonix Inj) 40 mg IVP Q12 [facility] Last Admin: 11/09/17 21:19 Dose: 40 mg - Labs Labs: 11/10/17 06:30 11/10/17 06:30 PT 13.4 SECONDS (9.4-12.5) H 11/09/17 06:00 INR 1.16 11/09/17 06:00 APTT 29.6 Seconds (25.1-36.5) 11/09/17 06:00 - Constitutional Appears: Non-toxic, No Acute Distress - Head Exam Head Exam: ATRAUMATIC, NORMOCEPHALIC - Eye Exam Eye Exam: EOMI, Normal appearance - ENT Exam ENT Exam: Mucous Membranes Moist - Respiratory Exam Respiratory Exam: Respiratory Distress, NORMAL BREATHING PATTERN - Cardiovascular Exam Cardiovascular Exam: REGULAR RHYTHM. absent: Tachycardia - GI/Abdominal Exam GI & Abdominal Exam: Soft, Tenderness (around J tube site). absent: Distended, Rebound Additional comments: J tube site CDI. D5 infusing through J tube at 20cc/hr. Tolerating Assessment and Plan - Assessment and Plan (Free Text) Assessment: 52 y/o female w/ pharyngeal mass s/p J tube placement Plan: -ok to start tube feeds through J tube -NPO pmn for ENT biopsy in am -fentanyl patch for pain -d/w [facility]obato [facility] PGY4
[2017-11-10] MEDS ORDERED: Magnesium Sulfate 2 gm/50 ml 2 GM/50 ML BAG IVPB ONE (09:01)
--- NOTE | 2017-11-10 10:07 | CP.PCM.PN ---
Subjective - Date & Time of Evaluation Date of Evaluation: 11/10/17 Time of Evaluation: 13:14 - Subjective Subjective: Crow Peacock PGY2 Heme/Onc Progress Note for Dr. Cleveland Patient was seen and examined at bedside. There are no acute overnight events. The patient continues to cough up blood. G-tube was placed yesterday. The plan is for biopsy by ENT (Dr. Newman) tomorrow. Blood bank notified the medical team that the platelets (which are single donor, irradiated) will be expiring tonight at midnight. The patient denies any acute changes in symptoms. Objective - Vital Signs/Intake and Output Vital Signs (last 24 hours): Temp Pulse Resp BP Pulse Ox 99.2 F 98 H 19 87/60 L 96 11/10/17 08:46 11/10/17 08:46 11/10/17 08:46 11/10/17 08:46 11/10/17 08:46 Intake and Output: 11/10/17 11/10/17 06:59 18:59 Intake Total 1561 Output Total 400 Balance 1561 -400 - Medications Medications: Current Medications Fentanyl (Fentanyl) 25 mcg IV Q5M PRN PRN Reason: Pain, moderate (4-7) Hydromorphone HCl (Dilaudid) 0.5 mg IVP Q4H PRN PRN Reason: Pain, severe (8-10) Amino Acids/Electrolytes/Dextrose (Clinimix 4.25/5 % "E" (2000 Ml)) 2,000 mls @ 83 mls/hr IV .Q24H [facility] Stop: 11/12/17 17:59 Last Admin: 11/09/17 17:19 Dose: 83 mls/hr Fat Emulsion Intravenous (Intralipid 20%) 250 mls @ 21 mls/hr IV 1800 [facility] Stop: 11/12/17 17:59 Last Admin: 11/09/17 17:18 Dose: 21 mls/hr Sodium Chloride (Sodium Chloride 0.9%) 1,000 mls @ 100 mls/hr IV .Q10H [facility] Lorazepam (Ativan) 1 mg IVP Q6H PRN; Protocol PRN Reason: Anxiety Last Admin: 11/09/17 21:20 Dose: 1 mg Metoclopramide HCl (Reglan) 10 mg IV ONCE PRN PRN Reason: Nausea/Vomiting Metronidazole (Metrogel Cream) 0 gm TOP BID [facility] Last Admin: 11/09/17 18:41 Dose: 1 applic Morphine Sulfate (Morphine) 1 mg IVP Q4H PRN PRN Reason: Pain, moderate (4-7) Last Admin: 11/09/17 14:31 Dose: 1 mg Pantoprazole Sodium (Protonix Inj) 40 mg IVP Q12 [facility] Last Admin: 11/09/17 21:19 Dose: 40 mg - Labs Labs: 11/10/17 06:30 11/10/17 06:30 PT 13.4 SECONDS (9.4-12.5) H 11/09/17 06:00 INR 1.16 11/09/17 06:00 APTT 29.6 Seconds (25.1-36.5) 11/09/17 06:00 - Additional Findings Additional findings: - Constitutional Appears: Non-toxic, No Acute Distress, Cachectic - Head Exam Head Exam: NORMOCEPHALIC. absent: ATRAUMATIC (left frontal region ecchymosis) - Eye Exam Eye Exam: EOMI, Normal appearance, PERRL - ENT Exam ENT Exam: Mucous Membranes Dry - Neck Exam Neck exam: Positive for: Full Rom. Negative for: Tenderness - Respiratory Exam Respiratory Exam: NORMAL BREATHING PATTERN. absent: Rales, Rhonchi, Wheezes - Cardiovascular Exam Cardiovascular Exam: RRR, +S1, +S2. absent: Systolic Murmur - GI/Abdominal Exam GI & Abdominal Exam: Soft. 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 Intraluminal esophageal lesion was noted on imaging and a large friable hypopharyngeal mass completely obstructing the airway was seen on upper endoscopy and laryngoscopy. Malignancy needs to be ruled out given history of heavy EtOH abuse raises her risk. Given her cirrhosis, the patient's platelet level is low likely due to sequestration as well as bone marrow suppression and should be supplemented with FFP and plts prior to any procedure. Patient underwent g-tube placement for parenteral nutrition and supplementation. She is due for biopsy fo the mass by ENT (Dr. Newman) tomorrow. Patient will be transfused 1u plts tonight (before expiring) and 2u pRBC throughout the day today; she will be pre-medicated with solu-cortef, benadry and tylenol. She is to receive 1u FFP tomorrow morning before the procedure. Plan: - ENT for biopsy tomorrow - recommend 1u FFP in AM prior to surgery - recommend 2u pRBC today with pre-medication of tylenol, solu-cortef and benadryl - transfuse 1u plts tonight prior to midnight - Radiation Oncology, Dr. Carrero, consulted for possible radiation therapy - tube feedings per surgery team - cont on folic acid and pyridoxine - Further recs per Dr. Cleveland Case was reviewed and discussed with attending, Dr. Cristofer Peacock PGY2
[2017-11-10] MEDS: Sodium Chloride 0.9% 1,000 ML IV SCH (11:03)
[2017-11-10] MEDS: MetroNIDAZOLE 0.75% Cream(45 gm) TOP SCH ×2 (11:03→17:52)
[2017-11-10] MEDS ORDERED: Mineral Oil Enema 135 ml RC ONE (11:39)
--- NOTE | 2017-11-10 15:19 | CP.PCM.PN ---
<JvCoryyannickkarla - Last Filed: 11/10/17 15:11> Subjective - Date & Time of Evaluation Date of Evaluation: 11/10/17 Time of Evaluation: 11:00 - Subjective Subjective: Clive Carias Progress Note for Dr. Rivas Pt was examined at bedside this morning. She continued to complain of back pain, and some soreness at JE tube site insertion. She also reports continuation of bloody in vomit. She denies any dizziness, chest pain, shortness of breath, nausea, diarrhea. Objective - Vital Signs/Intake and Output Vital Signs (last 24 hours): Temp Pulse Resp BP Pulse Ox 99.2 F 98 H 19 87/60 L 96 11/10/17 08:46 11/10/17 08:46 11/10/17 08:46 11/10/17 08:46 11/10/17 08:46 Intake and Output: 11/10/17 11/10/17 06:59 18:59 Intake Total 1561 Output Total 400 Balance 1561 -400 - Medications Medications: Current Medications Fentanyl (Duragesic) 1 patch TD Q72H [facility] Last Admin: 11/10/17 11:03 Dose: 1 patch Amino Acids/Electrolytes/Dextrose (Clinimix 4.25/5 % "E" (2000 Ml)) 2,000 mls @ 83 mls/hr IV .Q24H [facility] Stop: 11/12/17 17:59 Last Admin: 11/09/17 17:19 Dose: 83 mls/hr Fat Emulsion Intravenous (Intralipid 20%) 250 mls @ 21 mls/hr IV 1800 [facility] Stop: 11/12/17 17:59 Last Admin: 11/09/17 17:18 Dose: 21 mls/hr Sodium Chloride (Sodium Chloride 0.9%) 1,000 mls @ 100 mls/hr IV .Q10H [facility] Last Admin: 11/10/17 11:03 Dose: Not Given Lorazepam (Ativan) 1 mg IVP Q6H PRN; Protocol PRN Reason: Anxiety Last Admin: 11/09/17 21:20 Dose: 1 mg Metoclopramide HCl (Reglan) 10 mg IV ONCE PRN PRN Reason: Nausea/Vomiting Metronidazole (Metrogel Cream) 0 gm TOP BID [facility] Last Admin: 11/10/17 11:03 Dose: 1 applic Pantoprazole Sodium (Protonix Inj) 40 mg IVP Q12 [facility] Last Admin: 11/10/17 11:03 Dose: 40 mg - Labs Labs: 11/10/17 06:30 11/10/17 06:30 PT 13.4 SECONDS (9.4-12.5) H 11/09/17 06:00 INR 1.16 11/09/17 06:00 APTT 29.6 Seconds (25.1-36.5) 11/09/17 06:00 - Constitutional Appears: No Acute Distress - Head Exam Head Exam: ATRAUMATIC, NORMOCEPHALIC - Eye Exam Eye Exam: EOMI, Normal appearance, PERRL Pupil Exam: NORMAL ACCOMODATION - ENT Exam ENT Exam: Mucous Membranes Moist - Respiratory Exam Respiratory Exam: Clear to Ausculation Bilateral, NORMAL BREATHING PATTERN. absent: Rales, Rhonchi, Wheezes - Cardiovascular Exam Cardiovascular Exam: REGULAR RHYTHM, +S1, +S2. absent: Gallop, Rubs, Murmur - GI/Abdominal Exam GI & Abdominal Exam: Soft, Tenderness, Normal Bowel Sounds. absent: Distended, Firm Additional comments: tenderness in L side of abdomen, near sx site JE tube site clean, dry, intact - Extremities Exam Extremities Exam: absent: Pedal Edema - Neurological Exam Neurological Exam: Alert, Awake, Oriented x3 - Psychiatric Exam Psychiatric exam: Normal Affect, Normal Mood Assessment and Plan - Assessment and Plan (Free Text) Assessment: 52yoF PMH EtoH abuse and cirrhosis, presented to ED with hematemesis, being evaluated and treated for pharyngeal mass. POD#0 s/p jejunostomy tube insertion. ENT to perform bx on 11/11/17. 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 Herrera - recs appreciated - Heme/Onc consulted, Dr. Cristofer lion appreciated - ENT consulted, Dr. Paty lion appreciated - Rad/Onc consulted, Dr. Alise elizabeth f/u recs after biopsy - Gen sx consulted, Dr. Lobato, - recs appreciated Thrombocytopenia - Plt 81 today - 1 u Irradiated plt + 1 u FFP given yesterday - 1 U Irradiated plt + 1u FFP given 11/04 - transfuse w/ 2u PRBCs today with pre-med w/ benedryl, tylenol, hydrocortisone as per heme - transfuse w/ FFP and platelets again tonight, as per heme - Heme/Onc consulted, Dr. Cristofer lion appreciated Liver cirrhosis - CT abd: cirrhotic liver, no acute findings - GI consult: Dr. Herrera Hypomagnesemia - Mg 1.6, repleted - continue to monitor Hypokalemia - 3.7, resolved - continue to monitor Hyponatremia - Na 131, monitor Alcohol Abuse - continue Ativan 1 q6 PRN - aspiration, fall, and seizure precautions - Advised cessation PPX - SCD - Protonix Case discussed and plan reviewed with Dr. Rivas. <Aden Rivas - Last Filed: 11/12/17 17:37> Objective - Vital Signs/Intake and Output Vital Signs (last 24 hours): Temp Pulse Resp BP Pulse Ox 98.4 F 93 H 18 98/67 L 95 11/12/17 14:00 11/12/17 14:00 11/12/17 14:00 11/12/17 14:00 11/12/17 14:00 Intake and Output: 11/12/17 11/12/17 06:59 18:59 Intake Total 0 Balance 0 - Medications Medications: Current Medications Fentanyl (Duragesic) 1 patch TD Q72H [facility] Last Admin: 11/12/17 13:48 Dose: 1 patch Sodium Chloride (Sodium Chloride 0.9%) 1,000 mls @ 100 mls/hr IV .Q10H [facility] Last Admin: 11/10/17 11:03 Dose: Not Given Lorazepam (Ativan) 1 mg IVP Q6H PRN; Protocol PRN Reason: Anxiety Last Admin: 11/11/17 09:07 Dose: 1 mg Metoclopramide HCl (Reglan) 10 mg IV ONCE PRN PRN Reason: Nausea/Vomiting Metoclopramide HCl (Reglan) 10 mg IV ONCE PRN PRN Reason: Nausea/Vomiting Metronidazole (Metrogel Cream) 0 gm TOP BID [facility] Last Admin: 11/12/17 09:50 Dose: 1 applic Pantoprazole Sodium (Protonix Inj) 40 mg IVP Q12 [facility] Last Admin: 11/12/17 09:47 Dose: 40 mg - Labs Labs: 11/12/17 06:20 11/12/17 06:20 PT 11.6 SECONDS (9.4-12.5) 11/11/17 04:30 INR 1.02 11/11/17 04:30 APTT 26.9 Seconds (25.1-36.5) 11/11/17 04:30 Attending/Attestation - Attestation I have personally seen and examined this patient.: Yes I have fully participated in the care of the patient.: Yes I have reviewed all pertinent clinical information, including history, physical exam and plan: Yes Notes (Text): 11/12/17 17:37 Medical record note made by the resident after discussion with my direction and input after the patient was personally seen and examined by me. I have reviewed the chart and agree that the record accurately reflects by personal performance of the history, physical exam, data review, and medical decision-making, in the course for the patient. I have also personally directed the plan of care.
[2017-11-10] MEDS ORDERED: DiphenhydrAMINE 50 mg/ml Inj IVP ONE (15:44)
--- NOTE | 2017-11-10 16:09 | CP.PCM.CON ---
History of Present Illness - History of Present Illness History of Present Illness: Palliative consult requested by Dr Israel Evans Reason: Goals of care and advance care planning 52 year old female with history of hyopopharyngeal mass who presented to hospital on 11/03/17 with weakness, dysphagia and spitting up blood tinged material 15 pound weight loss over the past two weeks. Patient was found to have hypopharyngeal mass on EGD one year ago but did not follow up. She admits to nausea, vomiting, fatigue and dizziness. She denied fevers,shortness of breath, chest pain, epigastric/abdominal pain,headache. Labs 11/01/17: Wbc 11.6, Hgb 11.6, Plt 42, Na 129, K 3.6, BUN9, Cr 0.5, T Bili 1.6, Ast 49, Alt [address]: negative CT of abdomen and pelvis11/03/17: Hepatomegaly/hepatic steatosis, cirrhotic liver. Endo 11/04/17: scope could not be advanced beyond pharynx due to obstructing mass. large friable, fungating and ulcerative mas found on hypopharynx completely obstructing airway. Neck/Chest CT 11/06/17: two separate masses including the glottis 2.0x1.9 cm and esphagus/pharyngo esophageal junction 3.3X 2.4 cm. addendudm> soft tissue density in right parasagittal posterior to glottis also suspicious for neoplasm PMHx: alcoholism,cirrhosis, depression, hypopharyngeal mass PSH: jaw fracture, left tib/fib and ankle fractures 2014. Social History: Drinks beer daily, snorted cocaine in past, non smoker. single, lives with her brother. Family History: Father throat cancer. Advance Care Planning: the patient does not have an Advanced Directive Review of Systems - Constitutional Constitutional: Anorexia, Fatigue, Weight Loss, Weakness - EENT Nose/Mouth/Throat: Dysphagia, Hoarsness, Neck Mass Additional comments: spitting up blood - Breasts Additional comments: negative - Cardiovascular Additional comments: negative - Respiratory Additional comments: negative - Gastrointestinal Additional comments: negative - Genitourinary Additional comments: negative - Musculoskeletal Additional comments: negative - Integumentary Additional comments: negative - Neurological Neurological: Weakness - Endocrine Additional Comments: negative - Hematologic/Lymphatic Additional comments: negative Past Patient History - Infectious Disease Hx of Infectious Diseases: None - Tetanus Immunizations Tetanus Immunization: Unknown - Past Medical History & Family History Past Medical History?: Yes - Past Social History Smoking Status: Never Smoked Alcohol: > 2 Drinks/Day Drugs: Denies Home Situation {Lives}: With Family - CARDIAC Hx Cardiac Disorders: No - PULMONARY Hx Respiratory Disorders: No - NEUROLOGICAL Hx Neurological Disorder: No - HEENT Hx HEENT Problems: Yes (TUNNEL VISION) Other/Comment: dysphagia - RENAL Hx Chronic Kidney Disease: No - ENDOCRINE/METABOLIC Hx Endocrine Disorders: No - HEMATOLOGICAL/ONCOLOGICAL Hx Blood Transfusions: Yes Hx Blood Transfusion Reaction: No - INTEGUMENTARY Hx Dermatological Problems: Yes (SHINGLES TO FACE.) - MUSCULOSKELETAL/RHEUMATOLOGICAL Hx Musculoskeletal Disorders: Yes Hx Falls: Yes Hx Fractures: Yes (JAW FX REPAIR) Hx Rheumatoid Arthritis: Yes - GASTROINTESTINAL Hx Gastrointestinal Disorders: Yes - GENITOURINARY/GYNECOLOGICAL Hx Genitourinary Disorders: No - PSYCHIATRIC Hx Psychophysiologic Disorder: Yes (INSOMNIA) Hx Anxiety: Yes Hx Depression: Yes Hx Substance Use: No - SURGICAL HISTORY Hx Surgeries: Yes - ANESTHESIA Hx Anesthesia Reactions: No Hx Malignant Hyperthermia: No Meds Allergies/Adverse Reactions: Allergies Allergy/AdvReac Type Severity Reaction Status Date / Time No Known Allergies Allergy Verified 11/01/17 21:37 - Medications Medications: Current Medications Fentanyl (Duragesic) 1 patch TD Q72H [facility] Last Admin: 11/10/17 11:03 Dose: 1 patch Fat Emulsion Intravenous (Intralipid 20%) 250 mls @ 21 mls/hr IV 1800 [facility] Stop: 11/12/17 17:59 Last Admin: 11/09/17 17:18 Dose: 21 mls/hr Sodium Chloride (Sodium Chloride 0.9%) 1,000 mls @ 100 mls/hr IV .Q10H [facility] Last Admin: 11/10/17 11:03 Dose: Not Given Amino Acids/Electrolytes/Dextrose (Clinimix 4.25/5 % "E" (2000 Ml)) 2,000 mls @ 40 mls/hr IV .Q24H [facility] Stop: 11/12/17 17:59 Lorazepam (Ativan) 1 mg IVP Q6H PRN; Protocol PRN Reason: Anxiety Last Admin: 11/09/17 21:20 Dose: 1 mg Metoclopramide HCl (Reglan) 10 mg IV ONCE PRN PRN Reason: Nausea/Vomiting Metronidazole (Metrogel Cream) 0 gm TOP BID [facility] Last Admin: 11/10/17 11:03 Dose: 1 applic Pantoprazole Sodium (Protonix Inj) 40 mg IVP Q12 [facility] Last Admin: 11/10/17 11:03 Dose: 40 mg Physical Exam - Constitutional Appears: Cachectic, Chronically Ill - Head Exam Head Exam: NORMOCEPHALIC - Eye Exam Eye Exam: Normal appearance, PERRL - Respiratory Exam Respiratory Exam: Clear to Auscultation Bilateral, NORMAL BREATHING PATTERN - Cardiovascular Exam Cardiovascular Exam: REGULAR RHYTHM, +S1 - GI/Abdominal Exam GI & Abdominal Exam: Normal Bowel Sounds, Soft - Extremities Exam Extremities exam: Positive for: normal capillary refill, normal inspection - Back Exam Back exam: NORMAL INSPECTION - Skin Skin Exam: Dry, Pallor - Additional Findings Additional findings: palliative performance scale rating 50% Results - Vital Signs Recent Vital Signs: Last Vital Signs Temp 99.9 F H 11/10/17 14:00 Pulse 102 H 11/10/17 14:00 Resp 18 11/10/17 14:00 BP 91/60 L 11/10/17 14:00 Pulse Ox 96 11/10/17 14:00 - Labs Result Diagrams: 11/10/17 06:30 11/10/17 06:30 Labs: Laboratory Results - last 24 hr 11/09/17 11/09/17 11/10/17 23:50 23:50 06:30 WBC 7.7 D 7.7 RBC 2.34 L 2.43 L Hgb 7.8 L 7.9 L Hct 23.3 L 24.2 L MCV 99.6 99.6 MCH 33.3 32.5 MCHC 33.5 32.6 RDW 13.0 13.1 Plt Count 84 L 81 L MPV 10.5 10.4 Gran % 72.5 H Lymph % (Auto) 11.7 L Pacific % (Auto) 15.0 H Eos % (Auto) 0.5 L Baso % (Auto) 0.3 Gran # 5.56 Lymph # (Auto) 0.9 L Pacific # (Auto) 1.2 H Eos # (Auto) 0.0 Baso # (Auto) 0.02 Sodium 132 Potassium 4.1 Chloride 100 Carbon Dioxide 29 Anion Gap 6 L BUN 9 Creatinine 0.4 L Est GFR ( Amer) > 60 Est GFR (Non-Af Amer) > 60 Random Glucose 122 H Calcium 7.9 L Phosphorus Magnesium Total Bilirubin 0.4 AST 22 ALT 25 Alkaline Phosphatase 41 Total Protein 5.3 L Albumin 2.4 L Globulin 2.8 Albumin/Globulin Ratio 0.9 L 11/10/17 06:30 WBC RBC Hgb Hct MCV MCH MCHC RDW Plt Count MPV Gran % Lymph % (Auto) Pacific % (Auto) Eos % (Auto) Baso % (Auto) Gran # Lymph # (Auto) Pacific # (Auto) Eos # (Auto) Baso # (Auto) Sodium 131 L Potassium 3.7 Chloride 97 L Carbon Dioxide 30 Anion Gap 8 L BUN 9 Creatinine 0.4 L Est GFR ( Amer) > 60 Est GFR (Non-Af Amer) > 60 Random Glucose 113 H Calcium 7.9 L Phosphorus 2.7 Magnesium 1.6 L Total Bilirubin 0.4 AST 24 ALT 20 Alkaline Phosphatase 44 Total Protein 5.3 L Albumin 2.4 L Globulin 2.8 Albumin/Globulin Ratio 0.9 L Assessment & Plan - Assessment and Plan (Free Text) Assessment: 52 year old female with history of alcoholism, cirrhosis and hypopharyngeal mass who is admitted with anemia, thrombocytopenia,anorexia, cachexia, dyspahgia, masses in hypopharynx and epiglottis. She is s/p G tube placement. Awaiting bedside laryngeal scope with biopsy. The patient is alert, oriented, extremely weak. Spitting up BRB. Feeling uncomfortable, has throat pain. Fentanyl 12 mcg started today, IV opioids on hold secondary to hypotension. Also anemic, Hgb 7.9, PRBC's to be transfused. Patient not feeling well enough to talk about advance care planning at this time. She states that her brother, Navid Vanessa is her health care POA. Offered to come another day to discuss advance care planning. Advance care planning, 10 minutes Plan: Goals of care and advance care planning Anemia: Transfuse PRBc's today. Continue folic acid and pyroxidine Thrombocytopenia: Monitor labs, transfuse FFP's prior to biopsy procedure. Pain: Fentanyl 12 mcg Cachexia: J tube placed yesterday> N{PO. Currently on Clinimax and emulsion Further oncology/ rad oncology recs based upon biopsy results.
[2017-11-11] MEDS: Fat Emulsion 20% IV 250 ML IV SCH (01:39)
[2017-11-11 04:51] LABS: BASO # 0.02 K/mm3 (0.0-2.0); BASO % 0.2 % (0.0-3.0); GRAN # 7.57 (1.4-6.5); LYMPH # 0.7 (1.2-3.4); LYMPH % 8.1 % (22.0-35.0); MEAN CORPUSCULAR HEMOGLOBIN 31.7 pg (25.0-35.0); MEAN CORPUSCULAR HGB CONC 33.5 g/dl (31.0-37.0); MEAN PLATELET VOLUME 10.7 fl (7.0-11.0); MONO # 0.7 (0.1-0.6); MONO % 7.7 % (1.0-6.0); RBC 3.63 10^6/uL (3.5-6.1); RED CELL DISTRIBUTION WIDTH 16.3 % (11.5-14.5)
[2017-11-11 04:54] LABS: INR 1.02; PARTIAL THROMBOPLASTIN TIME 26.9 Seconds (25.1-36.5); PROTHROMBIN TIME 11.6 SECONDS (9.4-12.5)
[2017-11-11 04:55] LABS: HEMOGLOBIN 11.5 g/dL (12.0-16.0); MEAN CELL VOLUME 94.5 fl (80.0-105.0)
[2017-11-11 05:47] LABS: ALB/GLOB RATIO 0.9 (1.1-1.8); ALBUMIN 2.6 g/dL (3.0-4.8); ALT/SGPT 25 U/L (7-56); AST/SGOT 31 U/L (14-36); BLOOD UREA NITROGEN 8 mg/dL (7-21); CALCIUM 7.9 mg/dL (8.4-10.5); GFR NON-AFRICAN AMERICAN > 60
--- NOTE | 2017-11-11 09:17 | CP.PCM.PN ---
<Clive Carias - Last Filed: 11/11/17 13:52> Subjective - Date & Time of Evaluation Date of Evaluation: 11/11/17 Time of Evaluation: 09:14 - Subjective Subjective: Clive Carias Progress Note for Dr. Rivas Pt was examined at bedside this morning. She continued to have bloody cough overnight. She complained of some soreness in the abdomen near the tube site. She also reported feeling some anxiety as she did not sleep well. She reported some pain with deep inspiration. Objective - Vital Signs/Intake and Output Vital Signs (last 24 hours): Temp Pulse Resp BP Pulse Ox 98.5 F 95 H 18 110/79 96 11/11/17 07:40 11/11/17 07:40 11/11/17 07:40 11/11/17 07:40 11/11/17 07:40 Intake and Output: 11/11/17 11/11/17 06:59 18:59 Intake Total 1117 Balance 1117 - Medications Medications: Current Medications Fentanyl (Duragesic) 1 patch TD Q72H [facility] Last Admin: 11/10/17 11:03 Dose: 1 patch Fat Emulsion Intravenous (Intralipid 20%) 250 mls @ 21 mls/hr IV 1800 [facility] Stop: 11/12/17 17:59 Last Admin: 11/11/17 01:39 Dose: 21 mls/hr Sodium Chloride (Sodium Chloride 0.9%) 1,000 mls @ 100 mls/hr IV .Q10H [facility] Last Admin: 11/10/17 11:03 Dose: Not Given Amino Acids/Electrolytes/Dextrose (Clinimix 4.25/5 % "E" (2000 Ml)) 2,000 mls @ 40 mls/hr IV .Q24H [facility] Stop: 11/12/17 17:59 Last Admin: 11/11/17 01:30 Dose: 40 mls/hr Lorazepam (Ativan) 1 mg IVP Q6H PRN; Protocol PRN Reason: Anxiety Last Admin: 11/11/17 09:07 Dose: 1 mg Metoclopramide HCl (Reglan) 10 mg IV ONCE PRN PRN Reason: Nausea/Vomiting Metronidazole (Metrogel Cream) 0 gm TOP BID [facility] Last Admin: 11/10/17 17:52 Dose: Not Given Pantoprazole Sodium (Protonix Inj) 40 mg IVP Q12 [facility] Last Admin: 11/10/17 23:42 Dose: 40 mg - Labs Labs: 11/11/17 04:30 11/11/17 04:30 PT 11.6 SECONDS (9.4-12.5) 11/11/17 04:30 INR 1.02 11/11/17 04:30 APTT 26.9 Seconds (25.1-36.5) 11/11/17 04:30 - Constitutional Appears: Well, No Acute Distress - Head Exam Head Exam: ATRAUMATIC, NORMOCEPHALIC Additional comments: purpura on L forehead markedly improved - Eye Exam Eye Exam: EOMI, Normal appearance, PERRL Pupil Exam: NORMAL ACCOMODATION - ENT Exam ENT Exam: Mucous Membranes Moist - Neck Exam Neck Exam: Normal Inspection - Respiratory Exam Respiratory Exam: Clear to Ausculation Bilateral, NORMAL BREATHING PATTERN. absent: Accessory Muscle Use, Rhonchi, Wheezes, Stridor - Cardiovascular Exam Cardiovascular Exam: REGULAR RHYTHM, +S1, +S2. absent: Gallop, Rubs, Murmur - GI/Abdominal Exam GI & Abdominal Exam: Soft, Tenderness, Normal Bowel Sounds. absent: Distended, Guarding Additional comments: tender to palpation of L abdomen JE-tube site clean, dry, intact - Extremities Exam Extremities Exam: Normal Inspection. absent: Calf Tenderness, Pedal Edema - Neurological Exam Neurological Exam: Alert, Awake, Oriented x3 - Psychiatric Exam Psychiatric exam: Anxious, Depressed Assessment and Plan - Assessment and Plan (Free Text) Assessment: 52yoF PMH EtoH abuse and cirrhosis, presented to ED with hematemesis, being evaluated and treated for pharyngeal mass. POD#2 s/p jejunostomy tube insertion. ENT to perform bx today. Plan: Hematemesis, likely 2/2 malignancy - EGD (11/04): large friable, fungating and ulcerative mass found in hypopharynx, completely obstructing airway, likely malignant - Soft tissue neck CT: two apparent separate masses including the glottis, 2x1.9cm and upper esophagus/pharyngo esophageal junction 3.3x2.4cm - POD #2 s/p jejunostomy tube insertion - s/p 2u PRBC transfused 11/10 - H/H 11.5/39.3 - continue Protonix q12 - PICC line placed for PPN - ENT to perform bx today - GI consulted, Dr. Javier lion appreciated - Heme/Onc consulted, Dr. Cristofer lion appreciated - ENT consulted, Dr. Paty lion appreciated - Rad/Onc consulted, Dr. Carrero - will f/u recs after biopsy - Gen sx consulted, Dr. Lobato, - recs appreciated Thrombocytopenia - Plt 92 today - s/p 1 u FFP today pre-op - s/p 1 u Irradiated plt yesterday - 1 u Irradiated plt + 1 u FFP given 11/09 - 1 U Irradiated plt + 1u FFP given 11/04 - f/u CBC post-op - Heme/Onc consulted, Dr. Cristofer lion appreciated Liver cirrhosis - CT abd: cirrhotic liver, no acute findings - GI consult: Dr. Herrera Hypomagnesemia - Mg 1.9, resolved - continue to monitor Hypokalemia - 3.8, resolved - continue to monitor Alcohol Abuse, Anxiety - continue Ativan 1 q6 PRN - aspiration, fall, and seizure precautions - Advised cessation PPX - SCD - Protonix Case discussed and plan reviewed with Dr. Rivas. <Aden Rivas - Last Filed: 11/12/17 17:37> Objective - Vital Signs/Intake and Output Vital Signs (last 24 hours): Temp Pulse Resp BP Pulse Ox 98.4 F 93 H 18 98/67 L 95 11/12/17 14:00 11/12/17 14:00 11/12/17 14:00 11/12/17 14:00 11/12/17 14:00 Intake and Output: 11/12/17 11/12/17 06:59 18:59 Intake Total 0 Balance 0 - Medications Medications: Current Medications Fentanyl (Duragesic) 1 patch TD Q72H [facility] Last Admin: 11/12/17 13:48 Dose: 1 patch Sodium Chloride (Sodium Chloride 0.9%) 1,000 mls @ 100 mls/hr IV .Q10H [facility] Last Admin: 11/10/17 11:03 Dose: Not Given Lorazepam (Ativan) 1 mg IVP Q6H PRN; Protocol PRN Reason: Anxiety Last Admin: 11/11/17 09:07 Dose: 1 mg Metoclopramide HCl (Reglan) 10 mg IV ONCE PRN PRN Reason: Nausea/Vomiting Metoclopramide HCl (Reglan) 10 mg IV ONCE PRN PRN Reason: Nausea/Vomiting Metronidazole (Metrogel Cream) 0 gm TOP BID [facility] Last Admin: 11/12/17 09:50 Dose: 1 applic Pantoprazole Sodium (Protonix Inj) 40 mg IVP Q12 [facility] Last Admin: 11/12/17 09:47 Dose: 40 mg - Labs Labs: 11/12/17 06:20 11/12/17 06:20 PT 11.6 SECONDS (9.4-12.5) 11/11/17 04:30 INR 1.02 11/11/17 04:30 APTT 26.9 Seconds (25.1-36.5) 11/11/17 04:30 Attending/Attestation - Attestation I have personally seen and examined this patient.: Yes I have fully participated in the care of the patient.: Yes I have reviewed all pertinent clinical information, including history, physical exam and plan: Yes Notes (Text): 11/12/17 17:36 Medical record note made by the resident after discussion with my direction and input after the patient was personally seen and examined by me. I have reviewed the chart and agree that the record accurately reflects by personal performance of the history, physical exam, data review, and medical decision-making, in the course for the patient. I have also personally directed the plan of care.
[2017-11-11] MEDS: MetroNIDAZOLE 0.75% Cream(45 gm) TOP SCH ×2 (11:00→18:00)
--- NOTE | 2017-11-11 11:30 | CP.PCM.PN ---
Subjective - Date & Time of Evaluation Date of Evaluation: 11/11/17 Time of Evaluation: 09:30 - Subjective Subjective: Crow Peacock PGY2 Heme/Onc Progress Note for Dr. Cleveland Patient was seen and examined at bedside. There are no acute overnight events. The patient states that she her cough up of blood has decreased and secretions have thickened. She was also started on the tube feedings which she feels are "clotting up" in her stomach. The tube feeds were held overnight. The patient was given 2u pRBC, 1u plts yesterday in prep for OR today. She will be transfused 1u FFP prior to OR. Objective - Vital Signs/Intake and Output Vital Signs (last 24 hours): Temp Pulse Resp BP Pulse Ox 98.5 F 95 H 18 110/79 96 11/11/17 07:40 11/11/17 07:40 11/11/17 07:40 11/11/17 07:40 11/11/17 07:40 Intake and Output: 11/11/17 11/11/17 06:59 18:59 Intake Total 1117 Balance 1117 - Medications Medications: Current Medications Fentanyl (Duragesic) 1 patch TD Q72H [facility] Last Admin: 11/10/17 11:03 Dose: 1 patch Fat Emulsion Intravenous (Intralipid 20%) 250 mls @ 21 mls/hr IV 1800 [facility] Stop: 11/12/17 17:59 Last Admin: 11/11/17 01:39 Dose: 21 mls/hr Sodium Chloride (Sodium Chloride 0.9%) 1,000 mls @ 100 mls/hr IV .Q10H [facility] Last Admin: 11/10/17 11:03 Dose: Not Given Amino Acids/Electrolytes/Dextrose (Clinimix 4.25/5 % "E" (2000 Ml)) 2,000 mls @ 40 mls/hr IV .Q24H [facility] Stop: 11/12/17 17:59 Last Admin: 11/11/17 01:30 Dose: 40 mls/hr Lorazepam (Ativan) 1 mg IVP Q6H PRN; Protocol PRN Reason: Anxiety Last Admin: 11/11/17 09:07 Dose: 1 mg Metoclopramide HCl (Reglan) 10 mg IV ONCE PRN PRN Reason: Nausea/Vomiting Metronidazole (Metrogel Cream) 0 gm TOP BID [facility] Last Admin: 11/10/17 17:52 Dose: Not Given Pantoprazole Sodium (Protonix Inj) 40 mg IVP Q12 [facility] Last Admin: 11/11/17 10:38 Dose: 40 mg - Labs Labs: 11/11/17 04:30 11/11/17 04:30 PT 11.6 SECONDS (9.4-12.5) 11/11/17 04:30 INR 1.02 11/11/17 04:30 APTT 26.9 Seconds (25.1-36.5) 11/11/17 04:30 - Additional Findings Additional findings: - Constitutional Appears: Non-toxic, No Acute Distress, Cachectic - Head Exam Head Exam: NORMOCEPHALIC. absent: ATRAUMATIC (left frontal region ecchymosis) - Eye Exam Eye Exam: EOMI, Normal appearance, PERRL - ENT Exam ENT Exam: Mucous Membranes Dry - Neck Exam Neck exam: Positive for: Full Rom. Negative for: Tenderness - Respiratory Exam Respiratory Exam: NORMAL BREATHING PATTERN. absent: Rales, Rhonchi, Wheezes - Cardiovascular Exam Cardiovascular Exam: RRR, +S1, +S2. absent: Systolic Murmur - GI/Abdominal Exam GI & Abdominal Exam: Soft. 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 Intraluminal esophageal lesion was noted on imaging and a large friable hypopharyngeal mass completely obstructing the airway was seen on upper endoscopy and laryngoscopy. Malignancy needs to be ruled out given history of heavy EtOH abuse raises her risk. Given her cirrhosis, the patient's platelet level is low likely due to sequestration as well as bone marrow suppression and should be supplemented with FFP and plts prior to any procedure. Patient underwent g-tube placement for parenteral nutrition and supplementation. She is due for biopsy fo the mass by ENT (Dr. Newman) today. Patient will be transfused 1u FFP today before the procedure. Biopsy will determine management. Plan: - ENT (Dr. Newman) for biopsy today - recommend 1u FFP prior to surgery - Radiation Oncology, Dr. Carrero, consulted for possible radiation therapy - tube feedings per surgery team - cont on folic acid and pyridoxine - Further recs per Dr. Cleveland Case was reviewed and discussed with attending, Dr. Cristofer Peacock PGY2
[2017-11-11] MEDS ORDERED: Propofol 10 mg/ml Inj (20 ML) ONE (12:35)
[2017-11-11] MEDS ORDERED: Succinylcholine 200 mg/10 ml Inj IV ONE (12:39)
[2017-11-11] MEDS ORDERED: Lidocaine 1% w Epi 1:100,000 Inj ONE (13:01)
[2017-11-11] MEDS ORDERED: EPINEPHrine 1:1000 Nasal Sol(30mL) ONE (13:01)
[2017-11-11] MEDS ORDERED: Etomidate 20 mg/10ml Inj IV ONE (13:04)
[2017-11-11] MEDS ORDERED: Desflurane Inhalation Anesthetic Liq (240 ml) ONE (13:08)
[2017-11-11] MEDS ORDERED: Sevoflurane - Inhalation Anesthetic Liq (250 ml) ONE (13:10)
[2017-11-11] MEDS ORDERED: Oxymetazoline 0.05% Nasal Spray (30 ml) NS ONE (13:11)
--- NOTE | 2017-11-11 14:44 | PCM.SURG1 ---
Surgeon's Initial Post Op Note - Surgeon's Notes Surgeon: Dr. Newman Family Preservation Caseworker: Dr. Doyle PGY3, Dr. Hidalgo Type of Anesthesia: General Endo Anesthesia Administered By: Dr. Marvin Pre-Operative Diagnosis: Pharyngeal Mass Operative Findings: Large supraglottic pharygeal mass extendoing to the hypoglossal region Post-Operative Diagnosis: Pharygeal Squamous Cell Carcinoma Operation Performed: Microlaryngoscopy with pharygeal mass biopsy Specimen/Specimens Removed: Tumor Estimated Blood Loss: EBL {In ML}: 5 Blood Products Given: N/A Drains Used: No Drains Post-Op Condition: Good Date of Surgery/Procedure: 11/11/17 Time of Surgery/Procedure: 14:44
[2017-11-11] MEDS ORDERED: DiphenhydrAMINE 50 mg/ml Inj IVP ONE (22:18)
[2017-11-12] MEDS ORDERED: Acetaminophen 650mg/20.3ml solution UD PO STA (04:53)
[2017-11-12 07:25] LABS: GRAN # 5.16 (1.4-6.5); GRAN % 80.4 % (50.0-68.0); HEMOGLOBIN 10.1 g/dL (12.0-16.0); LYMPH # 0.8 (1.2-3.4); LYMPH % 12.3 % (22.0-35.0); MEAN CELL VOLUME 96.6 fl (80.0-105.0); MEAN CORPUSCULAR HEMOGLOBIN 31.6 pg (25.0-35.0); MEAN CORPUSCULAR HGB CONC 32.7 g/dl (31.0-37.0); MEAN PLATELET VOLUME 10.8 fl (7.0-11.0); MONO # 0.5 (0.1-0.6); MONO % 7.3 % (1.0-6.0); RBC 3.2 10^6/uL (3.5-6.1); RED CELL DISTRIBUTION WIDTH 16.6 % (11.5-14.5); WHITE BLOOD COUNT 6.4 10^3/ul (4.5-11.0)
[2017-11-12 07:46] LABS: ALB/GLOB RATIO 0.8 (1.1-1.8); ALBUMIN 2.5 g/dL (3.0-4.8); ALT/SGPT 24 U/L (7-56); AST/SGOT 28 U/L (14-36); BLOOD UREA NITROGEN 11 mg/dL (7-21); GFR NON-AFRICAN AMERICAN > 60
--- NOTE | 2017-11-12 07:56 | CP.PCM.PN ---
Subjective - Date & Time of Evaluation Date of Evaluation: 11/12/17 Time of Evaluation: 07:00 - Subjective Subjective: Crow Peacock PGY2 Heme/Onc Progress Note for Dr. Cleveland Patient was seen and examined at bedside. Yesterday, the patient underwent microlaryngoscopy w/ pharyngeal mass bx w/ minimal EBL and frozen bx showed squamous cell carcinoma. Otherwise, the patient denies any acute overnight events. The patient states that she's still coughing up blood with less mucus and that she still feels that the food is backing up in her J-tube. Objective - Vital Signs/Intake and Output Vital Signs (last 24 hours): Temp Pulse Resp BP Pulse Ox 98.1 F 88 18 98/69 L 94 L 11/11/17 23:21 11/11/17 23:21 11/11/17 23:21 11/11/17 23:21 11/11/17 23:21 Intake and Output: 11/12/17 11/12/17 06:59 18:59 Intake Total 0 Balance 0 - Medications Medications: Current Medications Fentanyl (Duragesic) 1 patch TD Q72H [facility] Last Admin: 11/10/17 11:03 Dose: 1 patch Fentanyl (Fentanyl) 25 mcg IV Q5M PRN PRN Reason: Pain, moderate (4-7) Sodium Chloride (Sodium Chloride 0.9%) 1,000 mls @ 100 mls/hr IV .Q10H [facility] Last Admin: 11/10/17 11:03 Dose: Not Given Lorazepam (Ativan) 1 mg IVP Q6H PRN; Protocol PRN Reason: Anxiety Last Admin: 11/11/17 09:07 Dose: 1 mg Metoclopramide HCl (Reglan) 10 mg IV ONCE PRN PRN Reason: Nausea/Vomiting Metoclopramide HCl (Reglan) 10 mg IV ONCE PRN PRN Reason: Nausea/Vomiting Metronidazole (Metrogel Cream) 0 gm TOP BID [facility] Last Admin: 11/11/17 18:00 Dose: Not Given Pantoprazole Sodium (Protonix Inj) 40 mg IVP Q12 [facility] Last Admin: 11/11/17 21:51 Dose: 40 mg - Labs Labs: 11/12/17 06:20 11/12/17 06:20 PT 11.6 SECONDS (9.4-12.5) 11/11/17 04:30 INR 1.02 11/11/17 04:30 APTT 26.9 Seconds (25.1-36.5) 11/11/17 04:30 - Additional Findings Additional findings: - Constitutional Appears: Non-toxic, No Acute Distress, Cachectic - Head Exam Head Exam: NORMOCEPHALIC. absent: ATRAUMATIC (left frontal region ecchymosis) - Eye Exam Eye Exam: EOMI, Normal appearance, PERRL - ENT Exam ENT Exam: Mucous Membranes Dry - Neck Exam Neck exam: Positive for: Full Rom. Negative for: Tenderness - Respiratory Exam Respiratory Exam: NORMAL BREATHING PATTERN. absent: Rales, Rhonchi, Wheezes - Cardiovascular Exam Cardiovascular Exam: RRR, +S1, +S2. absent: Systolic Murmur - GI/Abdominal Exam GI & Abdominal Exam: Soft. 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 Intraluminal esophageal lesion was noted on imaging and a large friable hypopharyngeal mass completely obstructing the airway was seen on upper endoscopy and laryngoscopy. Patient is at high risk for malignancy given history of heavy EtOH abuse raises her risk. Given her cirrhosis, the patient's platelet level is low likely due to sequestration as well as bone marrow suppression and should be supplemented with FFP and plts prior to any procedure. Patient underwent J-tube placement for parenteral nutrition and supplementation. 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 Plan: - Radiation Oncology, Dr. Carrero, consulted for possible radiation therapy given dx of SCC - tube feedings per surgery team - cont on folic acid and pyridoxine - Further recs per Dr. Cleveland Case was reviewed and discussed with attending, Dr. Cristofer Peacock PGY2
--- NOTE | 2017-11-12 08:04 | OP ---
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 PROCEDURE: Direct microlaryngoscopy with excision and biopsy of mass involving the supraglottic hypopharyngeal area. SURGEON: Michael Newman DO. ANESTHESIA: General endotracheal. ESTIMATED BLOOD LOSS: Minimal. OPERATIVE PROCEDURE: This is a 52-year-old white female with a history of hematemesis who underwent an EGD on this current hospital visit, was noted to have evidence of hypopharyngeal tumor, which was also present on CT scan examination. The patient was taken to the operating room and prepped and draped in routine fashion and underwent anesthesia via endotracheal tube intubation. Dedo laryngoscope was inserted through the oral cavity. Dental protection was inserted. On examination, there was noted to be a large exophytic tumor arising from the right aryepiglottic fold extending posteriorly to the contralateral arytenoid, then down into the hypopharyngeal area posteriorly. Portions of the tumor involving the right aryepiglottic fold were removed with the use of cup forceps and sent down for frozen sections confirming squamous cell carcinoma of the supraglottis. Additional biopsies were performed from the hypopharyngeal area on the left posterior arytenoid area as well. Topical Afrin on cottonoids was applied to the areas, which was very friable and hemostasis was obtained. The patient was extubated and sent to recovery room in stable condition and we will have further treatment based on multiple consultations from Oncology and Radiation Therapy. The vocal cords were noted to be mobile bilaterally. Michael Newman DO
--- NOTE | 2017-11-12 09:05 | CP.PCM.PN ---
<Clive Carias - Last Filed: 11/12/17 13:19> Subjective - Date & Time of Evaluation Date of Evaluation: 11/12/17 Time of Evaluation: 09:01 - Subjective Subjective: Clive Carias PGY1 Progress Note for Dr. Rivas Pt was examined at bedside this morning. She reports trouble sleeping. Per nursing reports, pt was walking around asking to go home. Pt complains of abdominal pain near the JE tube site. She reports continuation of blood in her spit-up. She also complained of some pain in her throat. Pt denied any chest pain or shortness of breath, nausea or diarrhea. Objective - Vital Signs/Intake and Output Vital Signs (last 24 hours): Temp Pulse Resp BP Pulse Ox 97.8 F 74 18 101/71 94 L 11/12/17 06:00 11/12/17 06:00 11/12/17 06:00 11/12/17 06:00 11/12/17 06:00 Intake and Output: 11/12/17 11/12/17 06:59 18:59 Intake Total 0 Balance 0 - Medications Medications: Current Medications Fentanyl (Duragesic) 1 patch TD Q72H [facility] Last Admin: 11/10/17 11:03 Dose: 1 patch Fentanyl (Fentanyl) 25 mcg IV Q5M PRN PRN Reason: Pain, moderate (4-7) Sodium Chloride (Sodium Chloride 0.9%) 1,000 mls @ 100 mls/hr IV .Q10H [facility] Last Admin: 11/10/17 11:03 Dose: Not Given Lorazepam (Ativan) 1 mg IVP Q6H PRN; Protocol PRN Reason: Anxiety Last Admin: 11/11/17 09:07 Dose: 1 mg Metoclopramide HCl (Reglan) 10 mg IV ONCE PRN PRN Reason: Nausea/Vomiting Metoclopramide HCl (Reglan) 10 mg IV ONCE PRN PRN Reason: Nausea/Vomiting Metronidazole (Metrogel Cream) 0 gm TOP BID [facility] Last Admin: 11/11/17 18:00 Dose: Not Given Pantoprazole Sodium (Protonix Inj) 40 mg IVP Q12 [facility] Last Admin: 11/11/17 21:51 Dose: 40 mg - Labs Labs: 11/12/17 06:20 11/12/17 06:20 PT 11.6 SECONDS (9.4-12.5) 11/11/17 04:30 INR 1.02 11/11/17 04:30 APTT 26.9 Seconds (25.1-36.5) 11/11/17 04:30 - Constitutional Appears: Well, No Acute Distress - Head Exam Head Exam: ATRAUMATIC, NORMOCEPHALIC Additional comments: purpura on L side of forehead nearly healed - Eye Exam Eye Exam: EOMI, Normal appearance Pupil Exam: NORMAL ACCOMODATION, PERRL - ENT Exam ENT Exam: Mucous Membranes Moist - Neck Exam Neck Exam: Normal Inspection. absent: Tenderness - Respiratory Exam Respiratory Exam: Clear to Ausculation Bilateral, NORMAL BREATHING PATTERN. absent: Accessory Muscle Use, Rales, Rhonchi, Wheezes, Stridor - Cardiovascular Exam Cardiovascular Exam: REGULAR RHYTHM, +S1, +S2. absent: Gallop, Rubs, Murmur - Extremities Exam Extremities Exam: Normal Inspection. absent: Pedal Edema - Neurological Exam Neurological Exam: Alert, Oriented x3 - Psychiatric Exam Psychiatric exam: Depressed. absent: Anxious Assessment and Plan - Assessment and Plan (Free Text) Assessment: 52yoF PMH EtoH abuse and cirrhosis, presented to ED with hematemesis, being evaluated and treated for pharyngeal mass. POD#3 s/p jejunostomy tube insertion, POD#1 s/p pharyngeal biopsy. Plan: Hematemesis, likely 2/2 malignancy - EGD (11/04): large friable, fungating and ulcerative mass found in hypopharynx, completely obstructing airway, likely malignant - Soft tissue neck CT: two apparent separate masses including the glottis, 2x1.9cm and upper esophagus/pharyngo esophageal junction 3.3x2.4cm - Laryngoscopy (11/11): large supraglottic pharyngeal mass extending to hypoglossal region, likely SCC - f/u biopsy results - POD #3 s/p jejunostomy tube insertion - s/p 2u PRBC transfused 2 - H/H 10./30.9 - continue Protonix q12 - start fentanyl 25 TD - start tube feeds: goal of 50 - radiation simulation today, to begin treatment thursday as per rad/onc - GI consulted, Dr. Javier lion appreciated - Heme/Onc consulted, Dr. Cristofer lion appreciated - ENT consulted, Dr. Newman - recs appreciated - Rad/Onc consulted, Dr. Carrero - will f/u recs after biopsy - Gen sx consulted, Dr. Lobato, - recs appreciated Thrombocytopenia - Plt 79 today - 1 u FFP given pre-op 11/11 - 1 u Irradiated plt given 11/10 - 1 u Irradiated plt + 1 u FFP given 11/09 - 1 U Irradiated plt + 1u FFP given 11/04 - continue to monitor - Heme/Onc consulted, Dr. Cristofer lion appreciated Liver cirrhosis - CT abd: cirrhotic liver, no acute findings - GI consult: Dr. Herrera Hypomagnesemia - Mg 1.9, resolved - continue to monitor Hypokalemia - 3.7, resolved - continue to monitor Alcohol Abuse, Anxiety - continue Ativan 1 q6 PRN - aspiration, fall, and seizure precautions - Advised cessation PPX - SCD - Protonix Case discussed and plan reviewed with Dr. Rivas. <Aden Rivas - Last Filed: 11/12/17 17:36> Objective - Vital Signs/Intake and Output Vital Signs (last 24 hours): Temp Pulse Resp BP Pulse Ox 98.4 F 93 H 18 98/67 L 95 11/12/17 14:00 11/12/17 14:00 11/12/17 14:00 11/12/17 14:00 11/12/17 14:00 Intake and Output: 11/12/17 11/12/17 06:59 18:59 Intake Total 0 Balance 0 - Medications Medications: Current Medications Fentanyl (Duragesic) 1 patch TD Q72H [facility] Last Admin: 11/12/17 13:48 Dose: 1 patch Sodium Chloride (Sodium Chloride 0.9%) 1,000 mls @ 100 mls/hr IV .Q10H [facility] Last Admin: 11/10/17 11:03 Dose: Not Given Lorazepam (Ativan) 1 mg IVP Q6H PRN; Protocol PRN Reason: Anxiety Last Admin: 11/11/17 09:07 Dose: 1 mg Metoclopramide HCl (Reglan) 10 mg IV ONCE PRN PRN Reason: Nausea/Vomiting Metoclopramide HCl (Reglan) 10 mg IV ONCE PRN PRN Reason: Nausea/Vomiting Metronidazole (Metrogel Cream) 0 gm TOP BID [facility] Last Admin: 11/12/17 09:50 Dose: 1 applic Pantoprazole Sodium (Protonix Inj) 40 mg IVP Q12 [facility] Last Admin: 11/12/17 09:47 Dose: 40 mg - Labs Labs: 11/12/17 06:20 11/12/17 06:20 PT 11.6 SECONDS (9.4-12.5) 11/11/17 04:30 INR 1.02 11/11/17 04:30 APTT 26.9 Seconds (25.1-36.5) 11/11/17 04:30 Attending/Attestation - Attestation I have personally seen and examined this patient.: Yes I have fully participated in the care of the patient.: Yes I have reviewed all pertinent clinical information, including history, physical exam and plan: Yes Notes (Text): 11/12/17 17:29 Medical record note made by the resident after discussion with my direction and input after the patient was personally seen and examined by me. I have reviewed the chart and agree that the record accurately reflects by personal performance of the history, physical exam, data review, and medical decision-making, in the course for the patient. I have also personally directed the plan of care. 52 year old female with past medical history of alcohol cirrhosis ,friable polypoid lesion of the oropharynx.,chronic thrombocytopenia who presented with complaint of hematemesis and dysphagia. She is SP PEG tube placement 11/09/17, underwent biopsy of mass preliminary results showed malignancy , official report is p[ending , Radiation oncology is planning for Radiation therapy next week. Patient is tolerating feeding. Anemia and thrombocytopenia is stable. Prognosis is guarded.
[2017-11-12] MEDS: MetroNIDAZOLE 0.75% Cream(45 gm) TOP SCH (09:50)
--- NOTE | 2017-11-12 11:48 | CP.PCM.PN ---
Subjective - Date & Time of Evaluation Date of Evaluation: 11/12/17 Time of Evaluation: 06:45 - Subjective Subjective: Patient seen and examined. No acute events over night. +cough with sanguinous discharge. Tolerating tube feeds. Objective - Vital Signs/Intake and Output Vital Signs (last 24 hours): Temp Pulse Resp BP Pulse Ox 97.8 F 74 18 101/71 94 L 11/12/17 06:00 11/12/17 06:00 11/12/17 06:00 11/12/17 06:00 11/12/17 06:00 Intake and Output: 11/12/17 11/12/17 06:59 18:59 Intake Total 0 Balance 0 - Medications Medications: Current Medications Fentanyl (Duragesic) 1 patch TD Q72H [facility] Last Admin: 11/10/17 11:03 Dose: 1 patch Fentanyl (Fentanyl) 25 mcg IV Q5M PRN PRN Reason: Pain, moderate (4-7) Sodium Chloride (Sodium Chloride 0.9%) 1,000 mls @ 100 mls/hr IV .Q10H [facility] Last Admin: 11/10/17 11:03 Dose: Not Given Lorazepam (Ativan) 1 mg IVP Q6H PRN; Protocol PRN Reason: Anxiety Last Admin: 11/11/17 09:07 Dose: 1 mg Metoclopramide HCl (Reglan) 10 mg IV ONCE PRN PRN Reason: Nausea/Vomiting Metoclopramide HCl (Reglan) 10 mg IV ONCE PRN PRN Reason: Nausea/Vomiting Metronidazole (Metrogel Cream) 0 gm TOP BID [facility] Last Admin: 11/12/17 09:50 Dose: 1 applic Pantoprazole Sodium (Protonix Inj) 40 mg IVP Q12 [facility] Last Admin: 11/12/17 09:47 Dose: 40 mg - Labs Labs: 11/12/17 06:20 11/12/17 06:20 PT 11.6 SECONDS (9.4-12.5) 11/11/17 04:30 INR 1.02 11/11/17 04:30 APTT 26.9 Seconds (25.1-36.5) 11/11/17 04:30 - Constitutional Appears: No Acute Distress - Head Exam Head Exam: NORMOCEPHALIC - Eye Exam Eye Exam: Normal appearance - ENT Exam ENT Exam: Mucous Membranes Moist - Respiratory Exam Respiratory Exam: NORMAL BREATHING PATTERN - Cardiovascular Exam Cardiovascular Exam: REGULAR RHYTHM - Neurological Exam Neurological Exam: Alert, Awake, Oriented x3 - Psychiatric Exam Psychiatric exam: Normal Mood - Skin Skin Exam: Dry, Intact, Warm Assessment and Plan - Assessment and Plan (Free Text) Assessment: 52F with pharyngeal mass s/p microlaryngoscopy with pharygeal mass biopsy POD 1 and open jejujonostomy tube POD 3 Plan: -Advance tube feeds to goal -Check residuals -Medical management per primary -Will continue to follow D/w Dr. Luis Alfredo Benjamin PGY3
--- NOTE | 2017-11-12 12:19 | CP.PCM.PN ---
Subjective - Date & Time of Evaluation Date of Evaluation: 11/12/17 Time of Evaluation: 11:55 - Subjective Subjective: Ms Vanessa is a 52 year old female with a locally advanced laryngeal cancer. She is status post biopsy of the laryngeal mass. We have simulated the patient already for radiation therapy. We will be bringing her down tomorrow for a ve rification simulation session, and she will get her first treatment on Thursday. Objective - Vital Signs/Intake and Output Vital Signs (last 24 hours): Temp Pulse Resp BP Pulse Ox 97.8 F 74 18 101/71 94 L 11/12/17 06:00 11/12/17 06:00 11/12/17 06:00 11/12/17 06:00 11/12/17 06:00 Intake and Output: 11/12/17 11/12/17 06:59 18:59 Intake Total 0 Balance 0 - Medications Medications: Current Medications Fentanyl (Duragesic) 1 patch TD Q72H [facility] Last Admin: 11/10/17 11:03 Dose: 1 patch Fentanyl (Fentanyl) 25 mcg IV Q5M PRN PRN Reason: Pain, moderate (4-7) Sodium Chloride (Sodium Chloride 0.9%) 1,000 mls @ 100 mls/hr IV .Q10H [facility] Last Admin: 11/10/17 11:03 Dose: Not Given Lorazepam (Ativan) 1 mg IVP Q6H PRN; Protocol PRN Reason: Anxiety Last Admin: 11/11/17 09:07 Dose: 1 mg Metoclopramide HCl (Reglan) 10 mg IV ONCE PRN PRN Reason: Nausea/Vomiting Metoclopramide HCl (Reglan) 10 mg IV ONCE PRN PRN Reason: Nausea/Vomiting Metronidazole (Metrogel Cream) 0 gm TOP BID [facility] Last Admin: 11/12/17 09:50 Dose: 1 applic Pantoprazole Sodium (Protonix Inj) 40 mg IVP Q12 [facility] Last Admin: 11/12/17 09:47 Dose: 40 mg - Labs Labs: 11/12/17 06:20 11/12/17 06:20 PT 11.6 SECONDS (9.4-12.5) 11/11/17 04:30 INR 1.02 11/11/17 04:30 APTT 26.9 Seconds (25.1-36.5) 11/11/17 04:30
--- NOTE | 2017-11-12 14:39 | CP.PCM.PN ---
Subjective - Date & Time of Evaluation Date of Evaluation: 11/12/17 Time of Evaluation: 13:00 - Subjective Subjective: Alert, complains of L sided abdominal pain at J tube site Objective - Vital Signs/Intake and Output Vital Signs (last 24 hours): Temp Pulse Resp BP Pulse Ox 97.8 F 74 18 101/71 94 L 11/12/17 06:00 11/12/17 06:00 11/12/17 06:00 11/12/17 06:00 11/12/17 06:00 Intake and Output: 11/12/17 11/12/17 06:59 18:59 Intake Total 0 Balance 0 - Medications Medications: Current Medications Fentanyl (Duragesic) 1 patch TD Q72H [facility] Last Admin: 11/12/17 13:48 Dose: 1 patch Sodium Chloride (Sodium Chloride 0.9%) 1,000 mls @ 100 mls/hr IV .Q10H [facility] Last Admin: 11/10/17 11:03 Dose: Not Given Lorazepam (Ativan) 1 mg IVP Q6H PRN; Protocol PRN Reason: Anxiety Last Admin: 11/11/17 09:07 Dose: 1 mg Metoclopramide HCl (Reglan) 10 mg IV ONCE PRN PRN Reason: Nausea/Vomiting Metoclopramide HCl (Reglan) 10 mg IV ONCE PRN PRN Reason: Nausea/Vomiting Metronidazole (Metrogel Cream) 0 gm TOP BID [facility] Last Admin: 11/12/17 09:50 Dose: 1 applic Pantoprazole Sodium (Protonix Inj) 40 mg IVP Q12 [facility] Last Admin: 11/12/17 09:47 Dose: 40 mg - Labs Labs: 11/12/17 06:20 11/12/17 06:20 PT 11.6 SECONDS (9.4-12.5) 11/11/17 04:30 INR 1.02 11/11/17 04:30 APTT 26.9 Seconds (25.1-36.5) 11/11/17 04:30 - Constitutional Appears: Cachectic, Chronically Ill - Head Exam Additional comments: healing ecchymotic area left forehead - Eye Exam Eye Exam: Normal appearance, PERRL - ENT Exam ENT Exam: Mucous Membranes Moist - Respiratory Exam Respiratory Exam: Decreased Breath Sounds, NORMAL BREATHING PATTERN - Cardiovascular Exam Cardiovascular Exam: REGULAR RHYTHM, +S1, +S2 - GI/Abdominal Exam GI & Abdominal Exam: Tenderness, Normal Bowel Sounds Additional comments: J tube site area slightly swollen firm, tender tot touch - Extremities Exam Extremities Exam: Normal Capillary Refill, Normal Inspection - Neurological Exam Neurological Exam: Alert, Oriented x3 - Skin Skin Exam: Dry, Pallor Assessment and Plan - Assessment and Plan (Free Text) Assessment: 52 year old female with history of pharyngeal mass, alcoholism who is admitted with locally advanced squamous carcinoma of pharynx, anemia, thrombocytopenia,anorexia, cachexia, deconditioning and intractable pain. Patient appears uncomfortable ,states she just had Fentanyl patch applied. Complains of tenderness at J tube site. Area around J tube slightly swollen firm, no bleeding or discharge noted. The patient states that she wants to be treated. Patient is proceeding with radiation therapy, also intends to start chemotherapy in the future. She wants to go home, misses her dog. States it is just her and her brother,he works long hours. She also has 16 year old son who lives with his father but comes to her every other weekend. Encouraged her to complete health care proxy designating her brother so that he can make medical decisions if she is unable to do so. Patient somewhat guarded, will continue to follow and provide psychosocial support. Time spent in goals of care discussion, 20 minutes Plan: Goals of care Pain management: Fentanyl 25 mcg. J tube feedings started. Surgery following. Squamous Cell Carcinoma; XRT therapy to start Thursday. Hem/Onc also following
[2017-11-13 06:53] LABS: BASO # 0.01 K/mm3 (0.0-2.0); BASO % 0.1 % (0.0-3.0); EOS % 0.3 % (1.5-5.0); GRAN # 5.12 (1.4-6.5); GRAN % 74.7 % (50.0-68.0); HEMOGLOBIN 11.1 g/dL (12.0-16.0); LYMPH # 0.7 (1.2-3.4); LYMPH % 10.5 % (22.0-35.0); MEAN CELL VOLUME 99.1 fl (80.0-105.0); MEAN CORPUSCULAR HEMOGLOBIN 31.9 pg (25.0-35.0); MEAN CORPUSCULAR HGB CONC 32.2 g/dl (31.0-37.0); MEAN PLATELET VOLUME 10.5 fl (7.0-11.0); MONO % 14.4 % (1.0-6.0); RBC 3.48 10^6/uL (3.5-6.1); RED CELL DISTRIBUTION WIDTH 16.5 % (11.5-14.5); WHITE BLOOD COUNT 6.9 10^3/ul (4.5-11.0)
--- NOTE | 2017-11-13 07:50 | CP.PCM.PN ---
Subjective - Date & Time of Evaluation Date of Evaluation: 11/13/17 Time of Evaluation: 07:47 - Subjective Subjective: General surgery progress note for Dr. Lobato Patient seen and examined at bedside. No acute events overnight. Patient complaining of pain at the J-tube site, tolerating tube feeds. Denies fevers, chills, shortness of breath, or chest pain. Objective - Vital Signs/Intake and Output Vital Signs (last 24 hours): Temp Pulse Resp BP Pulse Ox 98 F 20 L 112 H 108/75 94 L 11/12/17 22:59 11/12/17 22:59 11/12/17 22:59 11/12/17 22:59 11/12/17 22:59 Intake and Output: 11/13/17 11/13/17 06:59 18:59 Intake Total 1690 Balance 1690 - Medications Medications: Current Medications Fentanyl (Duragesic) 1 patch TD Q72H [facility] Last Admin: 11/12/17 13:48 Dose: 1 patch Sodium Chloride (Sodium Chloride 0.9%) 1,000 mls @ 100 mls/hr IV .Q10H [facility] Last Admin: 11/10/17 11:03 Dose: Not Given Lidocaine (Lidoderm) 1 ea TD DAILY [facility] Lorazepam (Ativan) 1 mg IVP Q6H PRN; Protocol PRN Reason: Anxiety Last Admin: 11/12/17 21:59 Dose: 1 mg Metoclopramide HCl (Reglan) 10 mg IV ONCE PRN PRN Reason: Nausea/Vomiting Metoclopramide HCl (Reglan) 10 mg IV ONCE PRN PRN Reason: Nausea/Vomiting Metronidazole (Metrogel Cream) 0 gm TOP BID [facility] Last Admin: 11/12/17 09:50 Dose: 1 applic Pantoprazole Sodium (Protonix Inj) 40 mg IVP Q12 [facility] Last Admin: 11/12/17 21:59 Dose: 40 mg - Labs Labs: 11/13/17 06:15 11/12/17 06:20 PT 11.6 SECONDS (9.4-12.5) 11/11/17 04:30 INR 1.02 11/11/17 04:30 APTT 26.9 Seconds (25.1-36.5) 11/11/17 04:30 - Constitutional Appears: Well, No Acute Distress, Cachectic - Head Exam Head Exam: ATRAUMATIC, NORMOCEPHALIC - Eye Exam Eye Exam: Normal appearance - ENT Exam ENT Exam: Mucous Membranes Moist - Respiratory Exam Respiratory Exam: NORMAL BREATHING PATTERN. absent: Respiratory Distress - Cardiovascular Exam Cardiovascular Exam: RRR. absent: Tachycardia - GI/Abdominal Exam GI & Abdominal Exam: Soft, Tenderness (Tender to palpation around J-tube site). absent: Distended, Firm, Guarding Additional comments: J-tube in place, C/D/I, dressing changed - Extremities Exam Extremities Exam: Normal Inspection - Neurological Exam Neurological Exam: Alert, Awake, Oriented x3 - Psychiatric Exam Psychiatric exam: Normal Affect, Normal Mood - Skin Skin Exam: Dry, Intact, Normal Color, Warm Assessment and Plan - Assessment and Plan (Free Text) Assessment: 52 year old female with pharyngeal mass s/p microlaryngoscopy with pharygeal mass biopsy POD #2 and open jejujonostomy tube POD #4. Plan: - Advance tube feeds to goal as per manager user experience - Pain management, started Lidoderm patch - Encourage patient to ambulate, OOB, and PT evaluation - Medical management per primary - Will continue to follow Discussed case with Dr. Luis Alfredo Monique DO PGY-1
[2017-11-13 08:15] LABS: ALBUMIN 2.4 g/dL (3.0-4.8); BLOOD UREA NITROGEN 10 mg/dL (7-21); CALCIUM 7.8 mg/dL (8.4-10.5); GFR NON-AFRICAN AMERICAN > 60
[2017-11-13 08:16] LABS: ALB/GLOB RATIO 0.9 (1.1-1.8); ALT/SGPT 34 U/L (7-56); AST/SGOT 43 U/L (14-36)
--- NOTE | 2017-11-13 09:06 | CP.PCM.PN ---
<Crow Peacock - Last Filed: 11/13/17 20:38> Subjective - Date & Time of Evaluation Date of Evaluation: 11/13/17 Time of Evaluation: 07:36 - Subjective Subjective: Crow Peacock PGY2 Heme/Onc Progress Note for Dr. Cleveland The patient was seen and examined at bedside. There were no acute overnight events. The patient continues to complain of abdominal bloating at the site of her J-tube. Surgery team is aware of the situation, and have evaluated the tube. Otherwise, the patient denies any fever/chills, difficulty breathing, chest pain or any weakness, headaches or changes in vision/hearing. 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 The patient will be seen by Dr. Carrero, radiation oncologist, today for evaluation and mapping for possible XRT. Objective - Vital Signs/Intake and Output Vital Signs (last 24 hours): Temp Pulse Resp BP Pulse Ox 98.5 F 113 H 18 103/70 93 L 11/13/17 08:28 11/13/17 08:28 11/13/17 08:28 11/13/17 08:28 11/13/17 08:28 Intake and Output: 11/13/17 11/13/17 06:59 18:59 Intake Total 1690 Balance 1690 - Medications Medications: Current Medications Fentanyl (Duragesic) 1 patch TD Q72H [facility] Last Admin: 11/12/17 13:48 Dose: 1 patch Sodium Chloride (Sodium Chloride 0.9%) 1,000 mls @ 100 mls/hr IV .Q10H [facility] Last Admin: 11/10/17 11:03 Dose: Not Given Lidocaine (Lidoderm) 1 ea TD DAILY [facility] Lorazepam (Ativan) 1 mg IVP Q6H PRN; Protocol PRN Reason: Anxiety Last Admin: 11/12/17 21:59 Dose: 1 mg Metoclopramide HCl (Reglan) 10 mg IV ONCE PRN PRN Reason: Nausea/Vomiting Metoclopramide HCl (Reglan) 10 mg IV ONCE PRN PRN Reason: Nausea/Vomiting Metronidazole (Metrogel Cream) 0 gm TOP BID [facility] Last Admin: 11/12/17 09:50 Dose: 1 applic Pantoprazole Sodium (Protonix Inj) 40 mg IVP Q12 [facility] Last Admin: 11/12/17 21:59 Dose: 40 mg - Labs Labs: 11/13/17 06:15 11/13/17 06:15 PT 11.6 SECONDS (9.4-12.5) 11/11/17 04:30 INR 1.02 11/11/17 04:30 APTT 26.9 Seconds (25.1-36.5) 11/11/17 04:30 - Additional Findings Additional findings: - Constitutional Appears: Non-toxic, No Acute Distress, Cachectic - Head Exam Head Exam: NORMOCEPHALIC. absent: ATRAUMATIC (left frontal region ecchymosis) - Eye Exam Eye Exam: EOMI, Normal appearance, PERRL - ENT Exam ENT Exam: Mucous Membranes Dry - Neck Exam Neck exam: Positive for: Full Rom. Negative for: Tenderness - Respiratory Exam Respiratory Exam: NORMAL BREATHING PATTERN. absent: Rales, Rhonchi, Wheezes - Cardiovascular Exam Cardiovascular Exam: RRR, +S1, +S2. absent: Systolic Murmur - GI/Abdominal Exam GI & Abdominal Exam: Soft. 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 Intraluminal esophageal lesion was noted on imaging and a large friable hypopharyngeal mass completely obstructing the airway was seen on upper endoscopy and laryngoscopy. Patient is at high risk for malignancy given history of heavy EtOH abuse raises her risk. Given her cirrhosis, the patient's platelet level is low likely due to sequestration as well as bone marrow suppression and should be supplemented with FFP and plts prior to any procedure. Patient underwent J-tube placement for parenteral nutrition and supplementation. 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 Plan: - Radiation Oncology, Dr. Carrero, consulted for possible radiation therapy given dx of SCC - tube feedings per surgery team - HPV titers requested from pathologist - cont hydration and tube feedings to optimize patient - cont on folic acid and pyridoxine - Further recs per Dr. Cleveland Case was reviewed and discussed with attending, Dr. Cristofer Peacock PGY2 <Loni Cleveland P - Last Filed: 11/14/17 12:05> Objective - Vital Signs/Intake and Output Vital Signs (last 24 hours): Temp Pulse Resp BP Pulse Ox 97.8 F 99 H 20 101/70 93 L 11/14/17 08:21 11/14/17 08:21 11/14/17 08:21 11/14/17 08:21 11/14/17 08:21 - Medications Medications: Current Medications Fentanyl (Duragesic) 1 patch TD Q72H [facility] Last Admin: 11/12/17 13:48 Dose: 1 patch Sodium Chloride (Sodium Chloride 0.9%) 1,000 mls @ 100 mls/hr IV .Q10H [facility] Last Admin: 11/10/17 11:03 Dose: Not Given Lidocaine (Lidoderm) 1 ea TD DAILY [facility] Last Admin: 11/14/17 10:14 Dose: Not Given Lorazepam (Ativan) 1 mg IVP Q6H PRN; Protocol PRN Reason: Anxiety Last Admin: 11/13/17 21:33 Dose: 1 mg Metoclopramide HCl (Reglan) 10 mg IV ONCE PRN PRN Reason: Nausea/Vomiting Metronidazole (Metrogel Cream) 0 gm TOP BID [facility] Last Admin: 11/14/17 10:11 Dose: Not Given Oxycodone HCl (Oxycodone Immediate Release Tab) 5 mg PO Q6H PRN PRN Reason: Pain, moderate (4-7) Last Admin: 11/13/17 17:27 Dose: 5 mg Pantoprazole Sodium (Protonix Inj) 40 mg IVP Q12 [facility] Last Admin: 10/06/18 10:11 Dose: 40 mg - Labs Labs: 11/14/17 06:00 11/14/17 06:00 PT 11.6 SECONDS (9.4-12.5) 11/11/17 04:30 INR 1.02 11/11/17 04:30 APTT 26.9 Seconds (25.1-36.5) 11/11/17 04:30 Attending/Attestation - Attestation I have personally seen and examined this patient.: Yes I have fully participated in the care of the patient.: Yes I have reviewed all pertinent clinical information, including history, physical exam and plan: Yes
[2017-11-13] MEDS: Lidocaine 5% Patch TD SCH (09:25)
[2017-11-13] MEDS: MetroNIDAZOLE 0.75% Cream(45 gm) TOP SCH ×2 (09:27→17:35)
--- NOTE | 2017-11-13 16:16 | CP.PCM.PN ---
<Len Cedeño - Last Filed: 11/13/17 16:12> Subjective - Date & Time of Evaluation Date of Evaluation: 11/13/17 Time of Evaluation: 10:00 - Subjective Subjective: Len Cedeño, PGY-1 Progress Note for Hospitalist Service Patient seen and evaluated at bedside. She reports trouble sleeping. Per nursing reports, Pt complains of abdominal pain near the JE tube site. She also complained of some pain in her throat. Pt denied any chest pain or shortness of breath, nausea or diarrhea. Objective - Vital Signs/Intake and Output Vital Signs (last 24 hours): Temp Pulse Resp BP Pulse Ox 98.5 F 113 H 18 103/70 93 L 11/13/17 08:28 11/13/17 08:28 11/13/17 08:28 11/13/17 08:28 11/13/17 08:28 Intake and Output: 11/13/17 11/13/17 06:59 18:59 Intake Total 1690 Balance 1690 - Medications Medications: Current Medications Fentanyl (Duragesic) 1 patch TD Q72H [facility] Last Admin: 11/12/17 13:48 Dose: 1 patch Sodium Chloride (Sodium Chloride 0.9%) 1,000 mls @ 100 mls/hr IV .Q10H [facility] Last Admin: 11/10/17 11:03 Dose: Not Given Lidocaine (Lidoderm) 1 ea TD DAILY [facility] Last Admin: 11/13/17 09:25 Dose: 1 ea Lorazepam (Ativan) 1 mg IVP Q6H PRN; Protocol PRN Reason: Anxiety Last Admin: 11/12/17 21:59 Dose: 1 mg Metoclopramide HCl (Reglan) 10 mg IV ONCE PRN PRN Reason: Nausea/Vomiting Metronidazole (Metrogel Cream) 0 gm TOP BID [facility] Last Admin: 11/13/17 09:27 Dose: 1 applic Oxycodone HCl (Oxycodone Immediate Release Tab) 5 mg PO Q6H PRN PRN Reason: Pain, moderate (4-7) Pantoprazole Sodium (Protonix Inj) 40 mg IVP Q12 [facility] Last Admin: 11/13/17 09:26 Dose: 40 mg - Labs Labs: 11/13/17 06:15 11/13/17 06:15 PT 11.6 SECONDS (9.4-12.5) 11/11/17 04:30 INR 1.02 11/11/17 04:30 APTT 26.9 Seconds (25.1-36.5) 11/11/17 04:30 - Constitutional Appears: Well, No Acute Distress - Head Exam Head Exam: ATRAUMATIC, NORMOCEPHALIC Additional comments: purpura on L side of forehead - Eye Exam Eye Exam: EOMI, Normal appearance Pupil Exam: NORMAL ACCOMODATION, PERRL - ENT Exam ENT Exam: Mucous Membranes Moist - Neck Exam Neck Exam: Normal Inspection. absent: Tenderness - Respiratory Exam Respiratory Exam: Clear to Ausculation Bilateral, NORMAL BREATHING PATTERN. absent: Accessory Muscle Use, Rales, Rhonchi, Wheezes, Stridor - Cardiovascular Exam Cardiovascular Exam: REGULAR RHYTHM, +S1, +S2. absent: Gallop, Rubs, Murmur - Extremities Exam Extremities Exam: Normal Inspection. absent: Pedal Edema - Neurological Exam Neurological Exam: Alert, Oriented x3 - Psychiatric Exam Psychiatric exam: Depressed. absent: Anxious - GI/Abdominal Exam Additional comments: J tube. Minimal tenderness and erythema at site. Bandaged covering. No danielle discharge. Assessment and Plan - Assessment and Plan (Free Text) Assessment: Assessment: 52yoF PMH EtoH abuse and cirrhosis, presented to ED with hematemesis, being evaluated and treated for pharyngeal mass. POD#4 s/p jejunostomy tube insertion, POD#2 s/p pharyngeal biopsy. Plan: Hematemesis, likely 2/2 malignancy - EGD (11/04): large friable, fungating and ulcerative mass found in hypopharynx, completely obstructing airway, likely malignant - Soft tissue neck CT: two apparent separate masses including the glottis, 2x1.9cm and upper esophagus/pharyngo esophageal junction 3.3x2.4cm - Laryngoscopy (11/11): large supraglottic pharyngeal mass extending to hypoglossal region, likely SCC - f/u biopsy results - POD #4 s/p jejunostomy tube insertion - s/p 2u PRBC transfused 102 - H/H .03/10.9 - continue Protonix q12 - fentanyl 25 TD, began lidoderm patch per surgery. Oxycodone 5 mg q6h prn - start tube feeds: goal of 60, increased to 40 today - radiation simulation yesterday and verification today, to begin treatment thursday as per rad/onc - GI consulted, Dr. Javier lion appreciated - Heme/Onc consulted, Dr. Cristofer lion appreciated - ENT consulted, Dr. Paty lion appreciated - Rad/Onc consulted, Dr. Carrero - will f/u recs after biopsy - Gen sx consulted, Dr. Lobato, - recs appreciated Hypokalemia 3.4 repleted with 40 k dur continue to monitor Thrombocytopenia - Plt 76 today - 1 u FFP given pre-op 11/11 - 1 u Irradiated plt given 11/10 - 1 u Irradiated plt + 1 u FFP given 11/09 - 1 U Irradiated plt + 1u FFP given 11/04 - continue to monitor - Heme/Onc consulted, Dr. Cristofer lion appreciated Liver cirrhosis - CT abd: cirrhotic liver, no acute findings - GI consult: Dr. Herrera Hypomagnesemia - Mg 1.9, resolved - continue to monitor Alcohol Abuse, Anxiety - continue Ativan 1 q6 PRN - aspiration, fall, and seizure precautions - Advised cessation PPX - SCD - Protonix Disposition: Awaiting Physical therapy evaluation for deconditioning Case discussed and plan reviewed with Dr. Rivas. Len Cedeño, PGY-1 <Aden Rivas - Last Filed: 11/15/17 16:42> Objective - Vital Signs/Intake and Output Vital Signs (last 24 hours): Temp Pulse Resp BP Pulse Ox 98.6 F 139 H 16 120/91 H 95 11/15/17 14:00 11/15/17 14:00 11/15/17 14:00 11/15/17 14:00 11/15/17 14:00 - Medications Medications: Current Medications Fentanyl (Duragesic) 1 patch TD Q72H [facility] Last Admin: 11/15/17 14:44 Dose: 1 patch Sodium Chloride (Sodium Chloride 0.9%) 1,000 mls @ 100 mls/hr IV .Q10H [facility] Last Admin: 11/15/17 14:54 Dose: 100 mls/hr Lidocaine (Lidoderm) 1 ea TD DAILY [facility] Last Admin: 11/15/17 10:41 Dose: 1 ea Lorazepam (Ativan) 1 mg IVP Q6H PRN; Protocol PRN Reason: Anxiety Last Admin: 11/15/17 12:15 Dose: 1 mg Metoclopramide HCl (Reglan) 10 mg IV ONCE PRN PRN Reason: Nausea/Vomiting Metronidazole (Metrogel Cream) 0 gm TOP BID [facility] Last Admin: 11/15/17 10:41 Dose: 1 applic Nystatin (Nystop Topical Powder) 0 gm TOP BID [facility] Oxycodone HCl (Oxycodone Immediate Release Tab) 5 mg PO Q6H PRN PRN Reason: Pain, moderate (4-7) Last Admin: 11/13/17 17:27 Dose: 5 mg Pantoprazole Sodium (Protonix Inj) 40 mg IVP Q12 [facility] Last Admin: 11/15/17 10:41 Dose: 40 mg - Labs Labs: 11/15/17 15:03 11/15/17 15:03 PT 11.6 SECONDS (9.4-12.5) 11/11/17 04:30 INR 1.02 11/11/17 04:30 APTT 26.9 Seconds (25.1-36.5) 11/11/17 04:30 Attending/Attestation - Attestation I have personally seen and examined this patient.: Yes I have fully participated in the care of the patient.: Yes I have reviewed all pertinent clinical information, including history, physical exam and plan: Yes Notes (Text): 11/15/17 16:42 Medical record note made by the resident after discussion with my direction and input after the patient was personally seen and examined by me. I have reviewed the chart and agree that the record accurately reflects by personal performance of the history, physical exam, data review, and medical decision-making, in the course for the patient. I have also personally directed the plan of care.
[2017-11-13] MEDS ORDERED: Potassium Chloride 20 mEq ER Tab PO STA (16:21)
[2017-11-13] MEDS ORDERED: Potassium Chloride 40 mEq/30 ml LIQ UD PO ONE (17:09)
[2017-11-13] MEDS: oxyCODONE 5 mg Immediate Release Tab PO PRN (17:27)
[2017-11-14 06:47] LABS: BASO # 0.02 K/mm3 (0.0-2.0); BASO % 0.3 % (0.0-3.0); EOS # 0.1 (0.0-0.7); EOS % 0.6 % (1.5-5.0); GRAN # 6.39 (1.4-6.5); GRAN % 80.3 % (50.0-68.0); LYMPH # 0.8 (1.2-3.4); LYMPH % 10.6 % (22.0-35.0); MEAN CELL VOLUME 99.7 fl (80.0-105.0); MEAN CORPUSCULAR HEMOGLOBIN 31.4 pg (25.0-35.0); MEAN CORPUSCULAR HGB CONC 31.5 g/dl (31.0-37.0); MONO # 0.7 (0.1-0.6); MONO % 8.2 % (1.0-6.0); RBC 3.5 10^6/uL (3.5-6.1); RED CELL DISTRIBUTION WIDTH 16.5 % (11.5-14.5)
[2017-11-14 07:24] LABS: ALB/GLOB RATIO 0.8 (1.1-1.8); ALBUMIN 2.4 g/dL (3.0-4.8); ALT/SGPT 34 U/L (7-56); AST/SGOT 25 U/L (14-36); BLOOD UREA NITROGEN 9 mg/dL (7-21); CALCIUM 7.8 mg/dL (8.4-10.5); GFR NON-AFRICAN AMERICAN > 60
--- NOTE | 2017-11-14 08:27 | CP.PCM.PN ---
Subjective - Date & Time of Evaluation Date of Evaluation: 11/14/17 Time of Evaluation: 06:55 - Subjective Subjective: General surgery progress note for Dr. Lobato Patient seen and examined this morning at bedside. Patient is resting comfortably in bed with no complaints. Her tube feeds are currently at 40. She otherwise denies SALCIDO, CP< SOB, abdominal pain, extremity pain, dysuria. Objective - Vital Signs/Intake and Output Vital Signs (last 24 hours): Temp Pulse Resp BP Pulse Ox 97.8 F 99 H 20 101/70 93 L 11/14/17 08:21 11/14/17 08:21 11/14/17 08:21 11/14/17 08:21 11/14/17 08:21 - Medications Medications: Current Medications Fentanyl (Duragesic) 1 patch TD Q72H [facility] Last Admin: 11/12/17 13:48 Dose: 1 patch Sodium Chloride (Sodium Chloride 0.9%) 1,000 mls @ 100 mls/hr IV .Q10H [facility] Last Admin: 11/10/17 11:03 Dose: Not Given Potassium Chloride (Potassium Chloride 10 Meq/100 Ml) 10 meq in 100 mls @ 50 mls/hr IVPB Q2H [facility] Stop: 11/14/17 11:59 Lidocaine (Lidoderm) 1 ea TD DAILY [facility] Last Admin: 11/13/17 09:25 Dose: 1 ea Lorazepam (Ativan) 1 mg IVP Q6H PRN; Protocol PRN Reason: Anxiety Last Admin: 11/13/17 21:33 Dose: 1 mg Metoclopramide HCl (Reglan) 10 mg IV ONCE PRN PRN Reason: Nausea/Vomiting Metronidazole (Metrogel Cream) 0 gm TOP BID [facility] Last Admin: 11/13/17 17:35 Dose: Not Given Oxycodone HCl (Oxycodone Immediate Release Tab) 5 mg PO Q6H PRN PRN Reason: Pain, moderate (4-7) Last Admin: 11/13/17 17:27 Dose: 5 mg Pantoprazole Sodium (Protonix Inj) 40 mg IVP Q12 [facility] Last Admin: 11/13/17 21:33 Dose: 40 mg - Labs Labs: 11/14/17 06:00 11/14/17 06:00 PT 11.6 SECONDS (9.4-12.5) 11/11/17 04:30 INR 1.02 11/11/17 04:30 APTT 26.9 Seconds (25.1-36.5) 11/11/17 04:30 - Constitutional Appears: Well, Non-toxic, No Acute Distress - Head Exam Head Exam: ATRAUMATIC, NORMOCEPHALIC - Eye Exam Eye Exam: EOMI - ENT Exam ENT Exam: Mucous Membranes Moist - Respiratory Exam Respiratory Exam: NORMAL BREATHING PATTERN - Cardiovascular Exam Cardiovascular Exam: REGULAR RHYTHM - GI/Abdominal Exam GI & Abdominal Exam: Soft. absent: Distended, Guarding, Tenderness, Rebound Additional comments: J tube site cdi with no erythema or discharge, no residuals per nursing - Extremities Exam Extremities Exam: Normal Inspection. absent: Calf Tenderness, Pedal Edema, Tenderness - Neurological Exam Neurological Exam: Alert, Awake, Oriented x3 - Psychiatric Exam Psychiatric exam: Normal Affect, Normal Mood - Skin Skin Exam: Dry, Intact, Normal Color, Warm Assessment and Plan - Assessment and Plan (Free Text) Assessment: 52 year old female with pharyngeal mass s/p microlaryngoscopy with pharygeal mass biopsy POD #3 and open jejujonostomy tube POD #5 Plan: - Advance tube feeds to goal as per migration agent - Pain management, c/w Lidoderm patch - Encourage patient to ambulate, OOB, and PT evaluation - Medical management per primary - no further surgical management at this time please reconsult as necessary Discussed case with Dr. Lboato
[2017-11-14] MEDS: MetroNIDAZOLE 0.75% Cream(45 gm) TOP SCH ×2 (10:11→17:38)
[2017-11-14] MEDS: Lidocaine 5% Patch TD SCH (10:14)
--- NOTE | 2017-11-14 13:07 | CP.PCM.PN ---
<Sammy Pham - Last Filed: 11/14/17 12:48> Subjective - Date & Time of Evaluation Date of Evaluation: 11/14/17 Time of Evaluation: 10:00 - Subjective Subjective: Sammy Pham Internal Medicine Resident- Progress Note on Behalf of Hospitalist Team Subjective: Patient seen and examined at bedside. Resting comfortably in bed. No acute overnight events. Patient states throat pain and abdominal pain have improved relative to baseline. Denies fever, chills, chest pain, shortness of breath, abdominal pain, nausea, vomiting, diarrhea, constipation, and urinary symptoms. 12-point review of systems negative except as indicated in the HPI Physical Examination: - Constitutional Appears: Well, No Acute Distress - Head Exam Head Exam: purpura on L side of forehead - Eye Exam Eye Exam: EOMI, Normal appearance - ENT Exam ENT Exam: Mucous Membranes Moist - Neck Exam Neck Exam: Normal Inspection. absent: Tenderness - Respiratory Exam Respiratory Exam: Clear to Ausculation Bilateral, NORMAL BREATHING PATTERN. absent: Accessory Muscle Use, Rales, Rhonchi, Wheezes, Stridor - Cardiovascular Exam Cardiovascular Exam: REGULAR RHYTHM, +S1, +S2. absent: Gallop, Rubs, Murmur - Extremities Exam Extremities Exam: Normal Inspection. absent: Pedal Edema - Neurological Exam Neurological Exam: Alert, Oriented x3 - Psychiatric Exam Psychiatric exam: absent: Anxious - GI/Abdominal Exam Additional comments: J tube site clean and dry, Minimal tenderness to palpation Assessment and Plan: Patient is a 52 year old female with a past medical history of EtoH abuse and cirrhosis, who was admitted for evaluation and treatment of hematemesis. 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 Patient is kept NPO and is s/p jejunostomy tube insertion. Hematemesis - resolved - secondary to squamous cell carcinoma - EGD (11/04): large friable, fungating and ulcerative mass found in hypopharynx, completely obstructing airway, likely malignant - Soft tissue neck CT: two apparent separate masses including the glottis, 2x1.9cm and upper esophagus/pharyngo esophageal junction 3.3x2.4cm - Laryngoscopy (11/11): large supraglottic pharyngeal mass extending to hypoglossal region, likely SCC - GI consulted, Dr. Javier lion appreciated, continue protonix 40 IV Q12 Dysphagia - secondary to fungating and ulcerative mass found in hypopharynx - keep NPO - continue tube feeds via J tube, increase tube feeding to 50 mls/hr with end goal of 60 mls/hr, monitor for residuals Squamous cell carcinoma - heme/onc (Dr. Weller) and radiation oncology (Dr. Carrero) consulted- appreciate recommendations - radiation simulation and verification completed - to begin treatment on 11/16/2017 Hypokalemia -repleted -monitor closely Thrombocytopenia -platelet count stable ~ 82 from 76 - continue to monitor - Heme/Onc consulted, Dr. Cristofer lion appreciated Liver cirrhosis - CT abd: cirrhotic liver, no acute findings - GI consult: Dr. Herrera Alcohol Abuse, Anxiety - continue Ativan 1 q6 PRN anxiety - aspiration, fall, and seizure precautions - Advised cessation Abdominal Pain - near J tube site - J tube functioning properly- no residuals - continue fentanyl and lidocaine Prophylaxis - DVT- SCD - GI- Protonix Patient seen, case discussed with, and plan approved by attending physician, Dr. Rivas. Objective - Vital Signs/Intake and Output Vital Signs (last 24 hours): Temp Pulse Resp BP Pulse Ox 97.8 F 99 H 20 101/70 93 L 11/14/17 08:21 11/14/17 08:21 11/14/17 08:21 11/14/17 08:21 11/14/17 08:21 - Medications Medications: Current Medications Fentanyl (Duragesic) 1 patch TD Q72H [facility] Last Admin: 11/12/17 13:48 Dose: 1 patch Sodium Chloride (Sodium Chloride 0.9%) 1,000 mls @ 100 mls/hr IV .Q10H [facility] Last Admin: 11/10/17 11:03 Dose: Not Given Lidocaine (Lidoderm) 1 ea TD DAILY [facility] Last Admin: 11/14/17 10:14 Dose: Not Given Lorazepam (Ativan) 1 mg IVP Q6H PRN; Protocol PRN Reason: Anxiety Last Admin: 11/13/17 21:33 Dose: 1 mg Metoclopramide HCl (Reglan) 10 mg IV ONCE PRN PRN Reason: Nausea/Vomiting Metronidazole (Metrogel Cream) 0 gm TOP BID [facility] Last Admin: 11/14/17 10:11 Dose: Not Given Oxycodone HCl (Oxycodone Immediate Release Tab) 5 mg PO Q6H PRN PRN Reason: Pain, moderate (4-7) Last Admin: 11/13/17 17:27 Dose: 5 mg Pantoprazole Sodium (Protonix Inj) 40 mg IVP Q12 [facility] Last Admin: 11/14/17 10:11 Dose: 40 mg - Labs Labs: 11/14/17 06:00 11/14/17 06:00 PT 11.6 SECONDS (9.4-12.5) 11/11/17 04:30 INR 1.02 11/11/17 04:30 APTT 26.9 Seconds (25.1-36.5) 11/11/17 04:30 <Aden Rivas - Last Filed: 11/15/17 16:42> Objective - Vital Signs/Intake and Output Vital Signs (last 24 hours): Temp Pulse Resp BP Pulse Ox 98.6 F 139 H 16 120/91 H 95 11/15/17 14:00 11/15/17 14:00 11/15/17 14:00 11/15/17 14:00 11/15/17 14:00 - Medications Medications: Current Medications Fentanyl (Duragesic) 1 patch TD Q72H [facility] Last Admin: 11/15/17 14:44 Dose: 1 patch Sodium Chloride (Sodium Chloride 0.9%) 1,000 mls @ 100 mls/hr IV .Q10H [facility] Last Admin: 11/15/17 14:54 Dose: 100 mls/hr Lidocaine (Lidoderm) 1 ea TD DAILY [facility] Last Admin: 11/15/17 10:41 Dose: 1 ea Lorazepam (Ativan) 1 mg IVP Q6H PRN; Protocol PRN Reason: Anxiety Last Admin: 11/15/17 12:15 Dose: 1 mg Metoclopramide HCl (Reglan) 10 mg IV ONCE PRN PRN Reason: Nausea/Vomiting Metronidazole (Metrogel Cream) 0 gm TOP BID [facility] Last Admin: 11/15/17 10:41 Dose: 1 applic Nystatin (Nystop Topical Powder) 0 gm TOP BID [facility] Oxycodone HCl (Oxycodone Immediate Release Tab) 5 mg PO Q6H PRN PRN Reason: Pain, moderate (4-7) Last Admin: 11/13/17 17:27 Dose: 5 mg Pantoprazole Sodium (Protonix Inj) 40 mg IVP Q12 [facility] Last Admin: 11/15/17 10:41 Dose: 40 mg - Labs Labs: 11/15/17 15:03 11/15/17 15:03 PT 11.6 SECONDS (9.4-12.5) 11/11/17 04:30 INR 1.02 11/11/17 04:30 APTT 26.9 Seconds (25.1-36.5) 11/11/17 04:30 Attending/Attestation - Attestation I have personally seen and examined this patient.: Yes I have fully participated in the care of the patient.: Yes I have reviewed all pertinent clinical information, including history, physical exam and plan: Yes Notes (Text): 11/15/17 16:42 Medical record note made by the resident after discussion with my direction and input after the patient was personally seen and examined by me. I have reviewed the chart and agree that the record accurately reflects by personal performance of the history, physical exam, data review, and medical decision-making, in the course for the patient. I have also personally directed the plan of care.
[2017-11-14] MEDS: Sodium Chloride 0.9% 1,000 ML IV SCH ×4 (15:23→23:06)
[2017-11-15] MEDS: Sodium Chloride 0.9% 1,000 ML IV SCH ×3 (01:02→20:53)
--- NOTE | 2017-11-15 07:59 | CP.PCM.PN ---
<AnkitSammy - Last Filed: 11/15/17 13:56> Subjective - Date & Time of Evaluation Date of Evaluation: 11/15/17 Time of Evaluation: 10:00 - Subjective Subjective: Sammy Pham Internal Medicine Resident- Progress Note on Behalf of Hospitalist Team Subjective: Patient seen and examined at bedside. Resting comfortably in bed. No acute overnight events. Patient states throat pain and abdominal pain have improved relative to baseline. Admits to baseline anxiety. Denies fever, chills, chest pain, shortness of breath, abdominal pain, nausea, vomiting, diarrhea, constipation, and urinary symptoms. 12-point review of systems negative except as indicated in the HPI Physical Examination: - Constitutional Appears: Well, No Acute Distress - Head Exam Head Exam: purpura on L side of forehead - Eye Exam Eye Exam: EOMI, Normal appearance - ENT Exam ENT Exam: Mucous Membranes Moist - Neck Exam Neck Exam: Normal Inspection. absent: Tenderness - Respiratory Exam Respiratory Exam: Clear to Ausculation Bilateral, NORMAL BREATHING PATTERN. absent: Accessory Muscle Use, Rales, Rhonchi, Wheezes, Stridor - Cardiovascular Exam Cardiovascular Exam: REGULAR RHYTHM, +S1, +S2. absent: Gallop, Rubs, Murmur - Extremities Exam Extremities Exam: Normal Inspection. absent: Pedal Edema - Neurological Exam Neurological Exam: Alert, Oriented x3 - Psychiatric Exam Psychiatric exam: absent: Anxious - GI/Abdominal Exam Additional comments: J tube site clean and dry, Minimal tenderness to palpation Assessment and Plan: Patient is a 52 year old female with a past medical history of EtoH abuse and cirrhosis, who was admitted for evaluation and treatment of hematemesis. 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 Patient is kept NPO and is s/p jejunostomy tube insertion. Hematemesis - resolved - secondary to squamous cell carcinoma - EGD (11/04): large friable, fungating and ulcerative mass found in hypopharynx, completely obstructing airway, likely malignant - Soft tissue neck CT: two apparent separate masses including the glottis, 2x1.9cm and upper esophagus/pharyngo esophageal junction 3.3x2.4cm - Laryngoscopy (11/11): large supraglottic pharyngeal mass extending to hypoglossal region, likely SCC - GI consulted, Dr. Javier lion appreciated, continue protonix 40 IV Q12 Dysphagia - secondary to fungating and ulcerative mass found in hypopharynx - keep NPO - continue tube feeds via J tube, increase tube feeding to 60 mls/hr with end goal of 60 mls/hr, monitor for residuals- nutrition consult appreciated Squamous cell carcinoma - heme/onc (Dr. Weller) and radiation oncology (Dr. Carrero) consulted- appreciate recommendations - radiation simulation and verification completed - to begin treatment on 11/16/2017 Hypokalemia -repleted -monitor closely Thrombocytopenia -platelet count stable - continue to monitor - Heme/Onc consulted, Dr. Cristofer lion appreciated Liver cirrhosis - CT abd: cirrhotic liver, no acute findings - GI consult: Dr. Herrera Alcohol Abuse, Anxiety - continue Ativan 1 q6 PRN anxiety - aspiration, fall, and seizure precautions - Advised cessation Abdominal Pain - near J tube site - J tube functioning properly- no residuals - continue fentanyl and lidocaine Prophylaxis - DVT- SCD - GI- Protonix Patient seen, case discussed with, and plan approved by attending physician, Dr. Rivas. Objective - Vital Signs/Intake and Output Vital Signs (last 24 hours): Temp Pulse Resp BP Pulse Ox 97.9 F 100 H 18 109/74 96 11/15/17 06:00 11/15/17 06:00 11/15/17 06:00 11/15/17 06:00 11/15/17 06:00 - Medications Medications: Current Medications Fentanyl (Duragesic) 1 patch TD Q72H [facility] Last Admin: 11/12/17 13:48 Dose: 1 patch Sodium Chloride (Sodium Chloride 0.9%) 1,000 mls @ 100 mls/hr IV .Q10H [facility] Last Admin: 11/15/17 01:02 Dose: Not Given Lidocaine (Lidoderm) 1 ea TD DAILY [facility] Last Admin: 11/14/17 10:14 Dose: Not Given Lorazepam (Ativan) 1 mg IVP Q6H PRN; Protocol PRN Reason: Anxiety Last Admin: 11/15/17 00:53 Dose: 1 mg Metoclopramide HCl (Reglan) 10 mg IV ONCE PRN PRN Reason: Nausea/Vomiting Metronidazole (Metrogel Cream) 0 gm TOP BID [facility] Last Admin: 11/14/17 17:38 Dose: Not Given Oxycodone HCl (Oxycodone Immediate Release Tab) 5 mg PO Q6H PRN PRN Reason: Pain, moderate (4-7) Last Admin: 11/13/17 17:27 Dose: 5 mg Pantoprazole Sodium (Protonix Inj) 40 mg IVP Q12 [facility] Last Admin: 11/14/17 22:19 Dose: 40 mg - Labs Labs: 11/14/17 06:00 11/14/17 06:00 PT 11.6 SECONDS (9.4-12.5) 11/11/17 04:30 INR 1.02 11/11/17 04:30 APTT 26.9 Seconds (25.1-36.5) 11/11/17 04:30 <Aden Rivas - Last Filed: 11/15/17 16:41> Objective - Vital Signs/Intake and Output Vital Signs (last 24 hours): Temp Pulse Resp BP Pulse Ox 97.9 F 100 H 18 109/74 96 11/15/17 08:41 11/15/17 08:41 11/15/17 08:41 11/15/17 08:41 11/15/17 08:41 - Medications Medications: Current Medications Fentanyl (Duragesic) 1 patch TD Q72H [facility] Last Admin: 11/15/17 14:44 Dose: 1 patch Sodium Chloride (Sodium Chloride 0.9%) 1,000 mls @ 100 mls/hr IV .Q10H [facility] Last Admin: 11/15/17 14:54 Dose: 100 mls/hr Lidocaine (Lidoderm) 1 ea TD DAILY [facility] Last Admin: 11/15/17 10:41 Dose: 1 ea Lorazepam (Ativan) 1 mg IVP Q6H PRN; Protocol PRN Reason: Anxiety Last Admin: 11/15/17 12:15 Dose: 1 mg Metoclopramide HCl (Reglan) 10 mg IV ONCE PRN PRN Reason: Nausea/Vomiting Metronidazole (Metrogel Cream) 0 gm TOP BID [facility] Last Admin: 11/15/17 10:41 Dose: 1 applic Nystatin (Nystop Topical Powder) 0 gm TOP BID [facility] Oxycodone HCl (Oxycodone Immediate Release Tab) 5 mg PO Q6H PRN PRN Reason: Pain, moderate (4-7) Last Admin: 11/13/17 17:27 Dose: 5 mg Pantoprazole Sodium (Protonix Inj) 40 mg IVP Q12 [facility] Last Admin: 11/15/17 10:41 Dose: 40 mg - Labs Labs: 11/15/17 15:03 11/15/17 15:03 PT 11.6 SECONDS (9.4-12.5) 11/11/17 04:30 INR 1.02 11/11/17 04:30 APTT 26.9 Seconds (25.1-36.5) 11/11/17 04:30 Attending/Attestation - Attestation I have personally seen and examined this patient.: Yes I have fully participated in the care of the patient.: Yes I have reviewed all pertinent clinical information, including history, physical exam and plan: Yes Notes (Text): 11/15/17 16:14 Patient was seen and examined with medical instrument technician. 52 year old female with past medical history of alcohol cirrhosis, friable polypoid lesion of the oropharynx. Chronic thrombocytopenia who presented with complaint of hematemesis and dysphagia. She is SP PEG tube placement 11/09/17, underwent biopsy of mass showed squamous cell cancer, , Radiation oncology is planning for Radiation therapy on Thursday. Patient is tolerating feeding. Anemia and thrombocytopenia is stable.PT has recommended home with services, can be ar ranged on Thursday, Feeding to be changed to bolus at discharge. Can go home after radiation therapy. Prognosis is guarded. Management plan was discussed in detail with patient. Education was provided 11/15/17 16:40
[2017-11-15] MEDS: MetroNIDAZOLE 0.75% Cream(45 gm) TOP SCH ×3 (10:41→20:53)
[2017-11-15] MEDS: Lidocaine 5% Patch TD SCH (10:41)
[2017-11-15 15:28] LABS: BASO % 0.2 % (0.0-3.0); EOS # 0.7 (0.0-0.7); EOS % 0.7 % (1.5-5.0); GRAN % 82.5 % (50.0-68.0); HEMOGLOBIN 11.9 g/dL (12.0-16.0); LYMPH # 7.4 (1.2-3.4); LYMPH % 8.5 % (22.0-35.0); MEAN CELL VOLUME 96.5 fl (80.0-105.0); MEAN CORPUSCULAR HEMOGLOBIN 31.7 pg (25.0-35.0); MEAN CORPUSCULAR HGB CONC 32.9 g/dl (31.0-37.0); MEAN PLATELET VOLUME 10.7 fl (7.0-11.0); MONO # 0.8 (0.1-0.6); MONO % 8.1 % (1.0-6.0); RBC 3.75 10^6/uL (3.5-6.1); RED CELL DISTRIBUTION WIDTH 15.3 % (11.5-14.5)
[2017-11-15 15:29] LABS: BASO # 0.06 K/mm3 (0.0-2.0)
[2017-11-15 15:41] LABS: ALB/GLOB RATIO 0.8 (1.1-1.8); ALBUMIN 2.4 g/dL (3.0-4.8); ALT/SGPT 25 U/L (7-56); AST/SGOT 35 U/L (14-36); BLOOD UREA NITROGEN 8 mg/dL (7-21); CALCIUM 7.8 mg/dL (8.4-10.5); GFR NON-AFRICAN AMERICAN > 60
[2017-11-15] MEDS: Nystatin 100,000 Units/gm Topical Pow(15 gm) TOP SCH (18:13)
[2017-11-16] MEDS: Sodium Chloride 0.9% 1,000 ML IV SCH ×2 (05:42→22:46)
--- NOTE | 2017-11-16 08:50 | PN ---
DATE: 11/15/2017 LOCATION: The patient is in 574, bed 2. 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 Subjectively, the patient is examined at the bedside, resting comfortably, complains of throat pain, abdominal pain is improved. Denies any fevers, chills, chest pain, shortness of breath, or significant diarrhea. PHYSICAL EXAMINATION: GENERAL: The patient appears to be awake, in no significant distress. HEENT: Temporal muscle wasting is noted. The patient has purpura on the left side of the forehead. Conjunctivae are pale. Sclerae is anicteric. Pupils are equally reactive to light and accommodation. Examination of the oropharynx reveals no obvious oropharyngeal lesion. Tongue is moist. NECK: Supple. There is no adenopathy. LUNGS: Relatively clear to percussion and auscultation. CARDIOVASCULAR SYSTEM: Reveals S1 and S2 normal. No gallop or murmur is heard. ABDOMEN: Soft. The patient has a gastrostomy tube, which site is clean and dry with minimal tenderness. No rebound, rigidity or guarding is noted. NEUROLOGIC: Higher functions to be normal. No focal deficits are noted. EXTREMITIES: Unremarkable. ASSESSMENT NOTES: A 52-year-old female with past medical history of EtOH abuse, cirrhosis, anemia, sequestration thrombocytopenia, coagulopathy, was admitted initially for hematemesis, found to have large oropharyngeal and retropharyngeal lesion and finally on direct laryngoscopy was found to have lesions of hypopharynx on the supraglottic area that are on biopsy squamous cell carcinoma. The patient is right now n.p.o. and has been on jejunostomy feeding appears to have resolved. CT of the neck had found 2 separate lesions including the glottis and the upper esophagus in the esophageal junction, which is extension of the same lesion. PLAN: The patient is going to be assessed as mentioned for targeted therapy, with probably cetuximab along with confirmed radiation depending upon how allow us to do even we monitoring the patient accordingly. I have already spoken to Dr. Carrero and treatment plan is in progress. Lab data is reviewed that platelet count to be in baseline above 80,000. Coagulopathy appears to be improved. Last PT/INR is 1.02. less than 10. 243. Chemistries reveals normal electrolytes and normal kidney function, with normal LFTs at this point in time. Total protein is 5.5 with an albumin of 2.4, which will hopefully get corrected with active jejunostomy feedings. Discussed my findings in detail with the patient. We will recheck with Dr. Carrero on Thursday and formulate a formal treatment plan of starting her on combined treatments. The patient may have to at least be initially assess for getting the treatments for about 4 or 5 treatments before being sent to other Subacute Rehab or being sent home on tube feedings. Hopefully, the patient will be able to manage on her own in a home situation. We will have to speak to social service and talk to the primary medical team as to what the plans will be or should be. The patient case is being presented in Tumor Board to get some interactions from other members in our Oncology community. Time spent with the patient greater than 80 minutes and trying to correlate all the information, out of which more than 50% of the time was spent [id number] contact with the patient. Reviewed all the on Thursday. Loni Cleveland MD
[2017-11-16 09:50] LABS: BASO # 0.02 K/mm3 (0.0-2.0); BASO % 0.3 % (0.0-3.0); EOS # 0.1 (0.0-0.7); EOS % 0.9 % (1.5-5.0); GRAN # 6.17 (1.4-6.5); GRAN % 81.5 % (50.0-68.0); HEMOGLOBIN 11.6 g/dL (12.0-16.0); LYMPH # 0.7 (1.2-3.4); LYMPH % 8.6 % (22.0-35.0); MEAN CELL VOLUME 96.5 fl (80.0-105.0); MEAN CORPUSCULAR HEMOGLOBIN 31.5 pg (25.0-35.0); MEAN CORPUSCULAR HGB CONC 32.7 g/dl (31.0-37.0); MEAN PLATELET VOLUME 11.4 fl (7.0-11.0); MONO # 0.7 (0.1-0.6); MONO % 8.7 % (1.0-6.0); RBC 3.68 10^6/uL (3.5-6.1); RED CELL DISTRIBUTION WIDTH 15.3 % (11.5-14.5); WHITE BLOOD COUNT 7.6 10^3/ul (4.5-11.0)
[2017-11-16] MEDS: Nystatin 100,000 Units/gm Topical Pow(15 gm) TOP SCH ×2 (09:52→19:11)
[2017-11-16] MEDS: Lidocaine 5% Patch TD SCH (09:53)
[2017-11-16] MEDS: MetroNIDAZOLE 0.75% Cream(45 gm) TOP SCH ×2 (09:53→19:10)
[2017-11-16 09:57] LABS: ALB/GLOB RATIO 0.8 (1.1-1.8); ALBUMIN 2.5 g/dL (3.0-4.8); ALT/SGPT 28 U/L (7-56); AST/SGOT 31 U/L (14-36); BLOOD UREA NITROGEN 5 mg/dL (7-21); CALCIUM 7.7 mg/dL (8.4-10.5); GFR NON-AFRICAN AMERICAN > 60
--- NOTE | 2017-11-16 10:02 | CP.PCM.PN ---
Subjective - Date & Time of Evaluation Date of Evaluation: 11/16/17 Time of Evaluation: 09:08 - Subjective Subjective: Crow Peacock PGY2 Heme/Onc Progress Note for Dr. lCeveland The patient was seen and examined at bedside. There were no acute overnight events. The patient is receiving her 1st XRT session today. She denies any acute changes, fevers/chills, n/v/d. Objective - Vital Signs/Intake and Output Vital Signs (last 24 hours): Temp Pulse Resp BP Pulse Ox 98.2 F 102 H 18 102/72 96 11/16/17 08:17 11/16/17 08:17 11/16/17 08:17 11/16/17 08:17 11/16/17 08:17 Intake and Output: 11/16/17 11/16/17 06:59 18:59 Intake Total 0 Output Total 4 Balance -4 - Medications Medications: Current Medications Fentanyl (Duragesic) 1 patch TD Q72H [facility] Last Admin: 11/15/17 14:44 Dose: 1 patch Sodium Chloride (Sodium Chloride 0.9%) 1,000 mls @ 100 mls/hr IV .Q10H [facility] Last Admin: 11/16/17 05:42 Dose: Not Given Lidocaine (Lidoderm) 1 ea TD DAILY [facility] Last Admin: 11/16/17 09:53 Dose: 1 ea Lorazepam (Ativan) 1 mg IVP Q6H PRN; Protocol PRN Reason: Anxiety Last Admin: 11/16/17 09:51 Dose: 1 mg Metoclopramide HCl (Reglan) 10 mg IV ONCE PRN PRN Reason: Nausea/Vomiting Metronidazole (Metrogel Cream) 0 gm TOP BID [facility] Last Admin: 11/16/17 09:53 Dose: 1 applic Nystatin (Nystop Topical Powder) 0 gm TOP BID [facility] Last Admin: 11/16/17 09:52 Dose: 1 applic Oxycodone HCl (Oxycodone Immediate Release Tab) 5 mg PO Q6H PRN PRN Reason: Pain, moderate (4-7) Last Admin: 11/13/17 17:27 Dose: 5 mg Pantoprazole Sodium (Protonix Inj) 40 mg IVP Q12 [facility] Last Admin: 11/16/17 09:52 Dose: 40 mg - Labs Labs: 11/16/17 09:15 11/16/17 09:15 PT 11.6 SECONDS (9.4-12.5) 11/11/17 04:30 INR 1.02 11/11/17 04:30 APTT 26.9 Seconds (25.1-36.5) 11/11/17 04:30 - Additional Findings Additional findings: - Constitutional Appears: Non-toxic, No Acute Distress, Cachectic - Head Exam Head Exam: NORMOCEPHALIC. absent: ATRAUMATIC (left frontal region ecchymosis) - Eye Exam Eye Exam: EOMI, Normal appearance, PERRL - ENT Exam ENT Exam: Mucous Membranes Dry - Neck Exam Neck exam: Positive for: Full Rom. Negative for: Tenderness - Respiratory Exam Respiratory Exam: NORMAL BREATHING PATTERN. absent: Rales, Rhonchi, Wheezes - Cardiovascular Exam Cardiovascular Exam: RRR, +S1, +S2. absent: Systolic Murmur - GI/Abdominal Exam GI & Abdominal Exam: Soft. 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 Intraluminal esophageal lesion was noted on imaging and a large friable hypopharyngeal mass completely obstructing the airway was seen on upper endoscopy and laryngoscopy. Patient is at high risk for malignancy given history of heavy EtOH abuse raises her risk. Given her cirrhosis, the patient's platelet level is low likely due to sequestration as well as bone marrow suppression and should be supplemented with FFP and plts prior to any procedure. Patient underwent J-tube placement for parenteral nutrition and supplementation. 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 Plan: - Radiation Oncology, Dr. Carrero, for XRT (Session #1 today) - possible targeted therapy, probably with cetuximab - GI reconsulted regarding recs for rx w/ cetuximab or other chemorx given hx of cirrhosis - tube feedings per surgery team - HPV titers requested from pathologist - cont hydration and tube feedings to optimize patient - cont on folic acid and pyridoxine - Further recs per Dr. Cleveland Case was reviewed and discussed with attending, Dr. Cristofer Peacock PGY2
--- NOTE | 2017-11-16 13:25 | CP.PCM.PN ---
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 Patient is being followed by hematology/oncology as well as radiation oncology for treatment of carcinoma. Patient currently undergoing radiation treatment with Dr. Carrero. Patient is noted to have alcoholic cirrhosis MELDS 21 and DF 54 on admission. Cetuximab has been linked to mild and transient serum enzyme elevations during therapy, but has not been implicated in cases of clinically apparent liver injury. Publications on trials of cetuximab do not usually mention rates of ALT elevations or apparent liver injury, especially in the setting alcoholic cirrhosis. Research indicates that possibility for some degree elevation of ALT was reported more in patients receiving both the chimeric mouse-human monoclonal IgG1 kappa antibody to the human EGF receptor and radiation therapy. Rates of elevation were noted to only be five times above the upper limit of normal in 1- 2%. the Drug-induced Liver Injury Network Likelihood score for injury would be category E meaning unlikely cause of clinically apparent liver injury. The serum aminotransferase elevations that occur on cetuximab therapy appear to be generally transient, mild and asymptomatic. Again it is unclear what the potential damage would be in the setting of alcoholic cirrhosis as no specific studies have been published. Further research to be done regarding this medication including the potential for dose reduction in the setting of the patient's cirrohsis. At this point would continue to follow recommendations from her hematology/oncologist and radiation oncologist for treatment regarding her squamous cell carcinoma. There continues to be no plan for further endoscopy evaluation for this patient during this hospital admission. Further recommendations to come from Dr. Ramachandran. Objective - Vital Signs/Intake and Output Vital Signs (last 24 hours): Temp Pulse Resp BP Pulse Ox 98.2 F 102 H 18 102/72 96 11/16/17 08:17 10 08:17 11/16/17 08:17 11/16/17 08:17 11/16/17 08:17 Intake and Output: 11/16/17 11/16/17 06:59 18:59 Intake Total 0 Output Total 4 Balance -4 - Medications Medications: Current Medications Fentanyl (Duragesic) 1 patch TD Q72H [facility] Last Admin: 11/15/17 14:44 Dose: 1 patch Sodium Chloride (Sodium Chloride 0.9%) 1,000 mls @ 100 mls/hr IV .Q10H [facility] Last Admin: 11/16/17 05:42 Dose: Not Given Lidocaine (Lidoderm) 1 ea TD DAILY [facility] Last Admin: 11/16/17 09:53 Dose: 1 ea Lorazepam (Ativan) 1 mg IVP Q6H PRN; Protocol PRN Reason: Anxiety Last Admin: 11/16/17 09:51 Dose: 1 mg Metoclopramide HCl (Reglan) 10 mg IV ONCE PRN PRN Reason: Nausea/Vomiting Metronidazole (Metrogel Cream) 0 gm TOP BID [facility] Last Admin: 11/16/17 09:53 Dose: 1 applic Nystatin (Nystop Topical Powder) 0 gm TOP BID [facility] Last Admin: 11/16/17 09:52 Dose: 1 applic Oxycodone HCl (Oxycodone Immediate Release Tab) 5 mg PO Q6H PRN PRN Reason: Pain, moderate (4-7) Last Admin: 11/13/17 17:27 Dose: 5 mg Pantoprazole Sodium (Protonix Inj) 40 mg IVP Q12 [facility] Last Admin: 11/16/17 09:52 Dose: 40 mg - Labs Labs: 11/16/17 09:15 11/16/17 09:15 PT 11.6 SECONDS (9.4-12.5) 11/11/17 04:30 INR 1.02 11/11/17 04:30 APTT 26.9 Seconds (25.1-36.5) 11/11/17 04:30 <Javier,Kovil V - Last Filed: 11/16/17 19:48> Objective - Vital Signs/Intake and Output Vital Signs (last 24 hours): Temp Pulse Resp BP Pulse Ox 98.8 F 121 H 20 109/75 97 11/16/17 14:00 11/16/17 14:00 11/16/17 14:00 11/16/17 14:00 11/16/17 14:00 - Medications Medications: Current Medications Sodium Chloride (Sodium Chloride 0.9%) 1,000 mls @ 100 mls/hr IV .Q10H [facility] Last Admin: 11/16/17 05:42 Dose: Not Given Lidocaine (Lidoderm) 1 ea TD DAILY [facility] Last Admin: 11/16/17 09:53 Dose: 1 ea Lorazepam (Ativan) 1 mg IVP Q6H PRN; Protocol PRN Reason: Anxiety Last Admin: 11/16/17 19:11 Dose: 1 mg Metoclopramide HCl (Reglan) 10 mg IV ONCE PRN PRN Reason: Nausea/Vomiting Metronidazole (Metrogel Cream) 0 gm TOP BID [facility] Last Admin: 11/16/17 19:10 Dose: Not Given Nystatin (Nystop Topical Powder) 0 gm TOP BID [facility] Last Admin: 11/16/17 19:11 Dose: Not Given Oxycodone HCl (Oxycodone Immediate Release Tab) 5 mg PO Q6H PRN PRN Reason: Pain, moderate (4-7) Last Admin: 11/16/17 17:14 Dose: 5 mg Pantoprazole Sodium (Protonix Inj) 40 mg IVP Q12 [facility] Last Admin: 11/16/17 09:52 Dose: 40 mg - Labs Labs: 11/16/17 09:15 11/16/17 09:15 PT 11.6 SECONDS (9.4-12.5) 11/11/17 04:30 INR 1.02 11/11/17 04:30 APTT 26.9 Seconds (25.1-36.5) 11/11/17 04:30 Attending/Attestation - Attestation I have personally seen and examined this patient.: Yes I have fully participated in the care of the patient.: Yes I have reviewed all pertinent clinical information, including history, physical exam and plan: Yes Notes (Text): This is an addendum to GI followup report dictated by the Reconditioner. The patient was seen and evaluated earlier. Medical records, lab studies, imagings were reviewed. Last 24 hours events reviewed. Agreed with the above treatment plan as outlined in Reconditioner 's notes with the addition of the following GI was reconsulted to evaluate the patient In view of cirrhosis in planned Cetuximab Will review pharmacokinetics of the drug in view of the cirrhosis of the liver And discuss with Dr. Cleveland 11/16/17 19:47
[2017-11-16] MEDS: oxyCODONE 5 mg Immediate Release Tab PO PRN (17:14)
--- NOTE | 2017-11-16 20:11 | CP.PCM.PN ---
Subjective - Date & Time of Evaluation Date of Evaluation: 11/16/17 Time of Evaluation: 20:10 - Subjective Subjective: Pt seen and examined, denies chest pain, SOB Objective - Vital Signs/Intake and Output Vital Signs (last 24 hours): Temp Pulse Resp BP Pulse Ox 98.8 F 121 H 20 109/75 97 11/16/17 14:00 11/16/17 14:00 11/16/17 14:00 11/16/17 14:00 11/16/17 14:00 - Medications Medications: Current Medications Sodium Chloride (Sodium Chloride 0.9%) 1,000 mls @ 100 mls/hr IV .Q10H [facility] Last Admin: 11/16/17 05:42 Dose: Not Given Lidocaine (Lidoderm) 1 ea TD DAILY [facility] Last Admin: 11/16/17 09:53 Dose: 1 ea Lorazepam (Ativan) 1 mg IVP Q6H PRN; Protocol PRN Reason: Anxiety Last Admin: 11/16/17 19:11 Dose: 1 mg Metoclopramide HCl (Reglan) 10 mg IV ONCE PRN PRN Reason: Nausea/Vomiting Metronidazole (Metrogel Cream) 0 gm TOP BID [facility] Last Admin: 11/16/17 19:10 Dose: Not Given Nystatin (Nystop Topical Powder) 0 gm TOP BID [facility] Last Admin: 11/16/17 19:11 Dose: Not Given Oxycodone HCl (Oxycodone Immediate Release Tab) 5 mg PO Q6H PRN PRN Reason: Pain, moderate (4-7) Last Admin: 11/16/17 17:14 Dose: 5 mg Pantoprazole Sodium (Protonix Inj) 40 mg IVP Q12 [facility] Last Admin: 11/16/17 09:52 Dose: 40 mg - Labs Labs: 11/16/17 09:15 11/16/17 09:15 PT 11.6 SECONDS (9.4-12.5) 11/11/17 04:30 INR 1.02 11/11/17 04:30 APTT 26.9 Seconds (25.1-36.5) 11/11/17 04:30 - Head Exam Head Exam: ATRAUMATIC - Eye Exam Eye Exam: Normal appearance - ENT Exam ENT Exam: Mucous Membranes Moist - Cardiovascular Exam Cardiovascular Exam: +S1, +S2 - GI/Abdominal Exam GI & Abdominal Exam: Soft, Normal Bowel Sounds Assessment and Plan - Assessment and Plan (Free Text) Assessment: Pt is a 52 yo female with a past medical history of EtoH abuse and cirrhosis, who was admitted for evaluation and treatment of hematemesis. Patient was found to have a large friable, fungating and ulcerative mass found in hypopharynx whic h was found to be squamous cell carcinoma on biopsy/pathology. Patient is kept NPO and is s/p jejunostomy tube insertion. Plan: Hematemesis - EGD (11/04): large friable, fungating, ulcerative mass found in hypopharynx, completely obstructing airway, likely malignant - Soft tissue neck CT: two apparent separate masses including the glottis, 2x1. 9cm and upper esophagus/pharyngo esophageal junction 3.3x2.4cm - Laryngoscopy (11/11): large supraglottic pharyngeal mass extending to hypoglossal region, likely SCC - GI consulted, Dr. Herrera - recs appreciated, continue protonix 40 IV Q12 Squamous cell carcinoma - heme/onc (Dr. Weller) and radiation oncology (Dr. Carrero) consulted - radiation simulation and verification completed - to begin treatment on 11/16/2017, today Dysphagia - secondary to fungating and ulcerative mass found in hypopharynx - keep NPO - continue tube feeds via J tube, increase tube feeding to 60 mls/hr with end goal Liver cirrhosis - CT abd: cirrhotic liver, no acute findings - GI consult: Dr. Herrera Hypokalemia - repleted, monitor closely Thrombocytopenia - platelet count stable - Heme/Onc consulted, Dr. Cleveland - recommend monitoring for the first rounds of radiation Alcohol Abuse, Anxiety - Ativan 1 q6 PRN anxiety - aspiration, fall, and seizure precautions - Advised cessation Abdominal Pain - J tube functioning properly- no residuals - fentanyl and lidocaine for pain Prophylaxis - DVT- SCD - GI- Protonix Pt seen, examined, assessment and plan discussed with Dr Casanova. Torito Ferrer PGY1
[2017-11-17] MEDS: Sodium Chloride 0.9% 1,000 ML IV SCH (00:52)
[2017-11-17] MEDS: oxyCODONE 5 mg Immediate Release Tab PO PRN ×2 (01:04→10:53)
[2017-11-17 07:17] LABS: HEMOGLOBIN 10.9 g/dL (12.0-16.0); MEAN CELL VOLUME 96.6 fl (80.0-105.0); MEAN CORPUSCULAR HGB CONC 32.1 g/dl (31.0-37.0); RBC 3.52 10^6/uL (3.5-6.1); RED CELL DISTRIBUTION WIDTH 15.3 % (11.5-14.5); WHITE BLOOD COUNT 6.7 10^3/ul (4.5-11.0)
[2017-11-17 07:18] LABS: BASO # 0.02 K/mm3 (0.0-2.0); BASO % 0.3 % (0.0-3.0); EOS # 0.1 (0.0-0.7); EOS % 0.7 % (1.5-5.0); GRAN # 5.57 (1.4-6.5); GRAN % 83.2 % (50.0-68.0); LYMPH # 0.6 (1.2-3.4); LYMPH % 8.5 % (22.0-35.0); MEAN PLATELET VOLUME 10.8 fl (7.0-11.0); MONO # 0.5 (0.1-0.6); MONO % 7.3 % (1.0-6.0)
[2017-11-17 07:36] LABS: ALB/GLOB RATIO 0.8 (1.1-1.8); ALBUMIN 2.4 g/dL (3.0-4.8); ALT/SGPT 18 U/L (7-56); AST/SGOT 23 U/L (14-36); BLOOD UREA NITROGEN 5 mg/dL (7-21); CALCIUM 7.6 mg/dL (8.4-10.5); GFR NON-AFRICAN AMERICAN > 60
[2017-11-17] MEDS ORDERED: Potassium Chloride 20 mEq ER Tab PO ONE (09:15)
[2017-11-17] MEDS: Lidocaine 5% Patch TD SCH (10:55)
[2017-11-17] MEDS ORDERED: Potassium Chloride 20 mEq/15 ml LIQ UD PO ONE (11:29)
[2017-11-17 12:00] LABS: HEPATITIS B SURFACE AG Negative (NEGATIVE)
[2017-11-17 12:06] LABS: HEPATITIS A IGM NEGATIVE (NEGATIVE); HEPATITIS B CORE AB NEGATIVE (NEGATIVE)
[2017-11-17] MEDS ORDERED: Potassium Chloride 40 mEq/30 ml LIQ UD JT ONE (12:08)
[2017-11-17 12:18] LABS: HEPATITIS C ANTIBODY NEGATIVE (NEGATIVE)
--- NOTE | 2017-11-17 14:13 | CP.PCM.PN ---
Subjective - Date & Time of Evaluation Date of Evaluation: 11/17/17 Time of Evaluation: 14:11 - Subjective Subjective: Pt seen and examined this morning. Pt reports hematemesis. No new complaints. Objective - Vital Signs/Intake and Output Vital Signs (last 24 hours): Temp Pulse Resp BP Pulse Ox 98.4 F 64 18 99/66 L 96 11/17/17 06:00 11/17/17 06:00 11/17/17 06:00 11/17/17 06:00 11/17/17 06:00 - Medications Medications: Current Medications Lidocaine (Lidoderm) 1 ea TD DAILY [facility] Last Admin: 11/17/17 10:55 Dose: 1 ea Lorazepam (Ativan) 1 mg IVP Q6H PRN; Protocol PRN Reason: Anxiety Last Admin: 11/17/17 13:30 Dose: 1 mg Metoclopramide HCl (Reglan) 10 mg IV ONCE PRN PRN Reason: Nausea/Vomiting Metronidazole (Metrogel Cream) 0 gm TOP BID [facility] Last Admin: 11/16/17 19:10 Dose: Not Given Nystatin (Nystop Topical Powder) 0 gm TOP BID [facility] Last Admin: 11/16/17 19:11 Dose: Not Given Oxycodone HCl (Oxycodone Immediate Release Tab) 5 mg PO Q6H PRN PRN Reason: Pain, moderate (4-7) Last Admin: 11/17/17 10:53 Dose: 5 mg Pantoprazole Sodium (Protonix Inj) 40 mg IVP Q12 [facility] Last Admin: 11/17/17 10:53 Dose: 40 mg - Labs Labs: 11/17/17 07:00 11/17/17 07:00 PT 11.6 SECONDS (9.4-12.5) 11/11/17 04:30 INR 1.02 11/11/17 04:30 APTT 26.9 Seconds (25.1-36.5) 11/11/17 04:30 - ENT Exam ENT Exam: Mucous Membranes Moist - Respiratory Exam Respiratory Exam: Clear to Ausculation Bilateral, NORMAL BREATHING PATTERN - Cardiovascular Exam Cardiovascular Exam: RRR - GI/Abdominal Exam GI & Abdominal Exam: Normal Bowel Sounds - Neurological Exam Neurological Exam: Oriented x3 Assessment and Plan - Assessment and Plan (Free Text) Assessment: Pt is a 52 yo female with a past medical history of EtoH abuse and cirrhosis, who was admitted for evaluation and treatment of hematemesis. 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 Patient is kept NPO and is s/p jejunostomy tube insertion. Plan: Hematemesis - EGD (11/04): large friable, fungating, ulcerative mass found in hypopharynx, completely obstructing airway, likely malignant - Soft tissue neck CT: two apparent separate masses including the glottis, 2x1.9cm and upper esophagus/pharyngo esophageal junction 3.3x2.4cm - Laryngoscopy (11/11): large supraglottic pharyngeal mass extending to hypoglossal region, likely SCC - GI consulted, Dr. Herrera - recs appreciated, continue protonix 40 IV Q12 - social work consulted - home health consulted Squamous cell carcinoma - heme/onc Dr. Weller - radiation oncology Dr. Carrero - pt received second round of radiation today Dysphagia - secondary to fungating and ulcerative mass found in hypopharynx - continue tube feeds via J tube, increase tube feeding to 60 mls/hr with end goal Liver cirrhosis - CT abd: cirrhotic liver, no acute findings - GI consult: Dr. Herrera Hypokalemia - continue to monitor Thrombocytopenia - platelet count stable - Heme/Onc consulted, Dr. Cleveland Alcohol Abuse, Anxiety - Ativan 1 q6 PRN anxiety - aspiration, fall, and seizure precautions - Advised cessation Abdominal Pain - J tube functioning properly- no residuals - fentanyl - lidocaine Ppx - SCD - metclopramide Pt seen, examined, assessment and plan discussed with Dr Casanova. Torito Ferrer PGY1 Internal Medicine Resident
[2017-11-17] MEDS: Nystatin 100,000 Units/gm Topical Pow(15 gm) TOP SCH ×2 (18:38→18:39)
[2017-11-17] MEDS: MetroNIDAZOLE 0.75% Cream(45 gm) TOP SCH ×2 (18:38)
[2017-11-18 07:21] LABS: BASO # 0.02 K/mm3 (0.0-2.0); BASO % 0.3 % (0.0-3.0); EOS # 0.1 (0.0-0.7); GRAN # 6.72 (1.4-6.5); GRAN % 83.9 % (50.0-68.0); HEMOGLOBIN 10.7 g/dL (12.0-16.0); LYMPH # 0.6 (1.2-3.4); LYMPH % 7.5 % (22.0-35.0); MEAN CELL VOLUME 97.9 fl (80.0-105.0); MEAN CORPUSCULAR HEMOGLOBIN 31.4 pg (25.0-35.0); MEAN PLATELET VOLUME 11.1 fl (7.0-11.0); MONO # 0.6 (0.1-0.6); MONO % 7.3 % (1.0-6.0); RBC 3.41 10^6/uL (3.5-6.1); RED CELL DISTRIBUTION WIDTH 15.5 % (11.5-14.5)
[2017-11-18 07:50] LABS: ALB/GLOB RATIO 0.8 (1.1-1.8); ALBUMIN 2.4 g/dL (3.0-4.8); ALT/SGPT 18 U/L (7-56); AST/SGOT 24 U/L (14-36); BLOOD UREA NITROGEN 7 mg/dL (7-21); CALCIUM 7.8 mg/dL (8.4-10.5); GFR NON-AFRICAN AMERICAN > 60
[2017-11-18] MEDS: Lidocaine 5% Patch TD SCH (10:00)
[2017-11-18] MEDS: MetroNIDAZOLE 0.75% Cream(45 gm) TOP SCH ×2 (10:01→17:11)
[2017-11-18] MEDS: Nystatin 100,000 Units/gm Topical Pow(15 gm) TOP SCH ×2 (10:01→17:11)
--- NOTE | 2017-11-18 11:01 | CP.PCM.PN ---
Subjective - Date & Time of Evaluation Date of Evaluation: 11/18/17 Time of Evaluation: 10:01 - Subjective Subjective: Crow Peacock PGY2 Heme/Onc Progress Note for Dr. Cleveland The patient was seen and examined at bedside. There were no acute overnight events. The patient is received her 3rd XRT session today. She states that she still has abdominal fullness. She was instructed regarding her plans moving forward and her need to continue her hospital care. She denies any acute changes, fevers/chills, n/v/d. Objective - Vital Signs/Intake and Output Vital Signs (last 24 hours): Temp Pulse Resp BP Pulse Ox 98.2 F 96 H 18 102/59 L 93 L 11/18/17 06:00 11/18/17 06:00 11/18/17 06:00 11/18/17 06:00 11/18/17 06:00 Intake and Output: 11/18/17 11/18/17 06:59 18:59 Intake Total 1450 Balance 1450 - Medications Medications: Current Medications Lidocaine (Lidoderm) 1 ea TD DAILY [facility] Last Admin: 11/18/17 10:00 Dose: 1 ea Lorazepam (Ativan) 1 mg IVP Q6H PRN; Protocol PRN Reason: Anxiety Last Admin: 11/17/17 22:23 Dose: 1 mg Metronidazole (Metrogel Cream) 0 gm TOP BID [facility] Last Admin: 11/18/17 10:01 Dose: 1 applic Nystatin (Nystop Topical Powder) 0 gm TOP BID [facility] Last Admin: 11/18/17 10:01 Dose: 1 applic Pantoprazole Sodium (Protonix Inj) 40 mg IVP Q12 [facility] Last Admin: 11/18/17 09:59 Dose: 40 mg - Labs Labs: 11/18/17 06:40 11/18/17 06:40 PT 11.6 SECONDS (9.4-12.5) 11/11/17 04:30 INR 1.02 11/11/17 04:30 APTT 26.9 Seconds (25.1-36.5) 11/11/17 04:30 - Additional Findings Additional findings: - Constitutional Appears: Non-toxic, No Acute Distress, Cachectic - Head Exam Head Exam: NORMOCEPHALIC. absent: ATRAUMATIC (left frontal region ecchymosis) - Eye Exam Eye Exam: EOMI, Normal appearance, PERRL - ENT Exam ENT Exam: Mucous Membranes Dry - Neck Exam Neck exam: Positive for: Full Rom. Negative for: Tenderness - Respiratory Exam Respiratory Exam: NORMAL BREATHING PATTERN. absent: Rales, Rhonchi, Wheezes - Cardiovascular Exam Cardiovascular Exam: RRR, +S1, +S2. absent: Systolic Murmur - GI/Abdominal Exam GI & Abdominal Exam: Soft. 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 Intraluminal esophageal lesion was noted on imaging and a large friable hypopharyngeal mass completely obstructing the airway was seen on upper endoscopy and laryngoscopy. Patient is at high risk for malignancy given history of heavy EtOH abuse raises her risk. Given her cirrhosis, the patient's platelet level is low likely due to sequestration as well as bone marrow suppression and should be supplemented with FFP and plts prior to any procedure. Patient underwent J-tube placement for parenteral nutrition and supplementation. 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 Patient has been started on XRT and needs to receive 5-7 XRT before discharge; she also needs to be optimized nutritionally. Plan: - Radiation Oncology, Dr. Carrero, for XRT (Session #1 today) - possible targeted therapy, probably with cetuximab - GI reconsulted regarding recs for rx w/ cetuximab or other targeted chemorx given hx of cirrhosis - tube feedings per surgery team for optimal nutritional status - HPV titers requested from pathologist - cont hydration and tube feedings to optimize patient - cont on folic acid and pyridoxine - Further recs per Dr. Cleveland Case was reviewed and discussed with attending, Dr. Cristofer Peacock PGY2
--- NOTE | 2017-11-18 14:22 | CP.PCM.PN ---
<NabilToirto Rodrigue - Last Filed: 11/18/17 14:58> Subjective - Date & Time of Evaluation Date of Evaluation: 11/18/17 Time of Evaluation: 14:16 - Subjective Subjective: Pt seen and examined at bedside. Pt reports hematemesis. Pt has no new complaints at this time. Objective - Vital Signs/Intake and Output Vital Signs (last 24 hours): Temp Pulse Resp BP Pulse Ox 98.2 F 96 H 18 102/59 L 93 L 11/18/17 06:00 11/18/17 06:00 11/18/17 06:00 11/18/17 06:00 11/18/17 06:00 Intake and Output: 11/18/17 11/18/17 06:59 18:59 Intake Total 1450 Balance 1450 - Medications Medications: Current Medications Folic Acid (Folic Acid) 1 mg JT DAILY [facility] Lidocaine (Lidoderm) 1 ea TD DAILY [facility] Last Admin: 11/18/17 10:00 Dose: 1 ea Lorazepam (Ativan) 1 mg IVP Q6H PRN; Protocol PRN Reason: Anxiety Last Admin: 11/17/17 22:23 Dose: 1 mg Metronidazole (Metrogel Cream) 0 gm TOP BID [facility] Last Admin: 11/18/17 10:01 Dose: 1 applic Nystatin (Nystop Topical Powder) 0 gm TOP BID [facility] Last Admin: 11/18/17 10:01 Dose: 1 applic Pantoprazole Sodium (Protonix Inj) 40 mg IVP Q12 [facility] Last Admin: 11/18/17 09:59 Dose: 40 mg - Labs Labs: 11/18/17 06:40 11/18/17 06:40 PT 11.6 SECONDS (9.4-12.5) 11/11/17 04:30 INR 1.02 11/11/17 04:30 APTT 26.9 Seconds (25.1-36.5) 11/11/17 04:30 - Constitutional Appears: No Acute Distress - Head Exam Head Exam: ATRAUMATIC, NORMOCEPHALIC - ENT Exam ENT Exam: Mucous Membranes Moist - Respiratory Exam Respiratory Exam: Clear to Ausculation Bilateral - Cardiovascular Exam Cardiovascular Exam: RRR - GI/Abdominal Exam GI & Abdominal Exam: Soft, Normal Bowel Sounds - Neurological Exam Neurological Exam: Oriented x3 - Psychiatric Exam Psychiatric exam: Normal Affect, Normal Mood - Skin Skin Exam: Dry, Normal Color, Warm Assessment and Plan - Assessment and Plan (Free Text) Assessment: Pt is a 52 yo female with a PMH of alcohol abuse and cirrhosis, who was admitted for evaluation and treatment of hematemesis. 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 Patient is kept NPO and is s/p jejunostomy tube insertion. Plan: Hematemesis, Dysphagia, secondary to squamous cell carcinoma - EGD (11/04): large friable, fungating, ulcerative mass found in hypopharynx, completely obstructing airway - Soft tissue neck CT: two apparent separate masses including the glottis, 2x1.9cm and upper esophagus/pharyngo esophageal junction 3.3x2.4cm - Laryngoscopy (11/11): large supraglottic pharyngeal mass extending to hypoglossal region - continue tube feeds via J tube, increase tube feeding to 60 mls/hr with end go al - fentanyl, lidocaine for abdominal pain - pt will continue receiving radiation treatments - GI consulted, Dr. Herrera - recbeth appreciated, continue protonix 40 IV Q12 - social work consulted - home health consulted - heme/onc Dr. Weller - radiation oncology Dr. Carrero Liver cirrhosis - CT abd: cirrhotic liver, no acute findings - GI consult: Dr. Herrera Thrombocytopenia - Heme/Onc consulted, Dr. Cleveland Alcohol Abuse, Anxiety - Ativan 1 q6 PRN anxiety - aspiration, fall, and seizure precautions - Advised cessation Ppx - SCD - protonix Pt seen, examined, assessment and plan discussed with Dr Cristina Ferrer PGY1 Internal Medicine Resident <Kofi Evans - Last Filed: 11/18/17 17:31> Objective - Vital Signs/Intake and Output Vital Signs (last 24 hours): Temp Pulse Resp BP Pulse Ox 98.7 F 110 H 18 96/63 L 95 11/18/17 14:00 11/18/17 14:00 11/18/17 14:00 11/18/17 14:00 11/18/17 14:00 Intake and Output: 11/18/17 11/18/17 06:59 18:59 Intake Total 1450 Balance 1450 - Medications Medications: Current Medications Folic Acid (Folic Acid) 1 mg JT DAILY [facility] Lidocaine (Lidoderm) 1 ea TD DAILY [facility] Last Admin: 11/18/17 10:00 Dose: 1 ea Lorazepam (Ativan) 1 mg IVP Q6H PRN; Protocol PRN Reason: Anxiety Last Admin: 11/18/17 17:10 Dose: 1 mg Metronidazole (Metrogel Cream) 0 gm TOP BID [facility] Last Admin: 11/18/17 17:11 Dose: 1 applic Nystatin (Nystop Topical Powder) 0 gm TOP BID [facility] Last Admin: 11/18/17 17:11 Dose: 1 applic Pantoprazole Sodium (Protonix Inj) 40 mg IVP Q12 [facility] Last Admin: 11/18/17 09:59 Dose: 40 mg - Labs Labs: 11/18/17 06:40 11/18/17 06:40 PT 11.6 SECONDS (9.4-12.5) 11/11/17 04:30 INR 1.02 11/11/17 04:30 APTT 26.9 Seconds (25.1-36.5) 11/11/17 04:30 Attending/Attestation - Attestation I have personally seen and examined this patient.: Yes I have fully participated in the care of the patient.: Yes I have reviewed all pertinent clinical information, including history, physical exam and plan: Yes Notes (Text): 11/18/17 17:27 52 year old female with past medical history of alcohol abuse and cirrhosis who presented with hematemesis. She was found to have a large friable mass in the hypopharynx. Biopsy showed squamous cell carcinoma. She is s/p jejunostomy tube. She is tolerating feeds. She is being followed by hematology/oncology and radiation/oncology. She has started radiation treatment. She was counselled on alcohol abstinence. Kofi Evans MD [facility]
[2017-11-19 06:23] LABS: BASO # 0.02 K/mm3 (0.0-2.0); BASO % 0.2 % (0.0-3.0); EOS # 0.1 (0.0-0.7); EOS % 0.7 % (1.5-5.0); GRAN # 6.94 (1.4-6.5); GRAN % 85.9 % (50.0-68.0); HEMOGLOBIN 10.9 g/dL (12.0-16.0); LYMPH # 0.4 (1.2-3.4); LYMPH % 4.9 % (22.0-35.0); MEAN CORPUSCULAR HEMOGLOBIN 31.1 pg (25.0-35.0); MEAN CORPUSCULAR HGB CONC 31.7 g/dl (31.0-37.0); MEAN PLATELET VOLUME 11.8 fl (7.0-11.0); MONO # 0.7 (0.1-0.6); MONO % 8.3 % (1.0-6.0); PLATELET COUNT 126 10^3/uL (120.0-450.0); RBC 3.51 10^6/uL (3.5-6.1); RED CELL DISTRIBUTION WIDTH 15.3 % (11.5-14.5); WHITE BLOOD COUNT 8.1 10^3/ul (4.5-11.0)
[2017-11-19 07:11] LABS: ALB/GLOB RATIO 0.8 (1.1-1.8); ALBUMIN 2.4 g/dL (3.0-4.8); ALT/SGPT 23 U/L (7-56); AST/SGOT 27 U/L (14-36); BLOOD UREA NITROGEN 9 mg/dL (7-21); GFR NON-AFRICAN AMERICAN > 60
[2017-11-19 07:51] LABS: EOSINOPHIL 1 % (0.0-3.0); LYMPHOCYTE 5 % (22.0-35.0); MONOCYTE 1 % (1.0-6.0); NEUTROPHIL 93 % (50.0-70.0); PLATELET ESTIMATE NORMAL (NORMAL)
[2017-11-19] MEDS: Lidocaine 5% Patch TD SCH (09:20)
[2017-11-19] MEDS: Nystatin 100,000 Units/gm Topical Pow(15 gm) TOP SCH ×2 (09:22→17:36)
[2017-11-19] MEDS: MetroNIDAZOLE 0.75% Cream(45 gm) TOP SCH ×2 (09:22→17:36)
--- NOTE | 2017-11-19 10:01 | CP.PCM.PN ---
Subjective - Date & Time of Evaluation Date of Evaluation: 11/19/17 Time of Evaluation: 09:01 - Subjective Subjective: Crow Peacock PGY2 Heme/Onc Progress Note for Dr. Cleveland The patient was seen and examined at bedside. There were no acute overnight events. The patient is scheduled for her 4th XRT session today. She states that she still has abdominal fullness, and that she is unable to cough up as much blood as before because they're getting thicker. She was instructed regarding her plans moving forward and her need to continue her hospital care. She denies any acute changes, fevers/chills, n/v/d. Objective - Vital Signs/Intake and Output Vital Signs (last 24 hours): Temp Pulse Resp BP Pulse Ox 98.3 F 100 H 18 104/55 L 94 L 11/19/17 06:00 11/19/17 06:00 11/19/17 06:00 11/19/17 06:00 11/19/17 06:00 Intake and Output: 11/19/17 11/19/17 06:59 18:59 Intake Total 600 Balance 600 - Medications Medications: Current Medications Folic Acid (Folic Acid) 1 mg JT DAILY [facility] Last Admin: 11/19/17 09:16 Dose: 1 mg Lidocaine (Lidoderm) 1 ea TD DAILY [facility] Last Admin: 11/19/17 09:20 Dose: 1 ea Lorazepam (Ativan) 1 mg IVP Q6H PRN; Protocol PRN Reason: Anxiety Last Admin: 11/18/17 22:20 Dose: 1 mg Metronidazole (Metrogel Cream) 0 gm TOP BID [facility] Last Admin: 11/19/17 09:22 Dose: 1 applic Nystatin (Nystop Topical Powder) 0 gm TOP BID [facility] Last Admin: 11/19/17 09:22 Dose: 1 applic Pantoprazole Sodium (Protonix Inj) 40 mg IVP Q12 [facility] Last Admin: 11/19/17 09:16 Dose: 40 mg - Labs Labs: 11/19/17 05:40 11/19/17 05:40 PT 11.6 SECONDS (9.4-12.5) 11/11/17 04:30 INR 1.02 11/11/17 04:30 APTT 26.9 Seconds (25.1-36.5) 11/11/17 04:30 - Additional Findings Additional findings: - Constitutional Appears: Non-toxic, No Acute Distress, Cachectic - Head Exam Head Exam: NORMOCEPHALIC. absent: ATRAUMATIC (left frontal region ecchymosis) - Eye Exam Eye Exam: EOMI, Normal appearance, PERRL - ENT Exam ENT Exam: Mucous Membranes Dry - Neck Exam Neck exam: Positive for: Full Rom. Negative for: Tenderness - Respiratory Exam Respiratory Exam: NORMAL BREATHING PATTERN. absent: Rales, Rhonchi, Wheezes - Cardiovascular Exam Cardiovascular Exam: RRR, +S1, +S2. absent: Systolic Murmur - GI/Abdominal Exam GI & Abdominal Exam: Soft. 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 Intraluminal esophageal lesion was noted on imaging and a large friable hypopharyngeal mass completely obstructing the airway was seen on upper endoscopy and laryngoscopy. Given her cirrhosis, the patient's platelet level is low likely due to sequestration as well as bone marrow suppression and should be supplemented with FFP and plts prior to any procedure. Patient underwent J- tube placement for parenteral nutrition and supplementation. 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 Patient has been started on XRT and needs to receive 5-7 XRT before discharge (she's currently scheduled for 35 sessions total to end 01/05, daily Thursday-Thursday; she also needs to be optimized nutritionally. The patient has shown very poor outpatient follow-up and is at risk for neglecting her care if discharged prematurely. She also needs to monitored further as she receives XRT due to the acute side-effects, especially in a malignancy such as hers that could compromise her airway. Plan: - Radiation Oncology, Dr. Carrero, for XRT (Session #1 today) - possible targeted therapy, probably with cetuximab - GI reconsulted regarding recs for rx w/ cetuximab or other targeted chemorx given hx of cirrhosis - tube feedings per surgery team for optimal nutritional status - HPV titers requested from pathologist - cont hydration and tube feedings to optimize patient - cont on folic acid and pyridoxine - Further recs per Dr. Cleveland Case was reviewed and discussed with attending, Dr. Cristofer Peacock PGY2
[2017-11-19] MEDS ORDERED: Racepinephrine 2.25% Inhal Soln 0.5 ML UD IH PRN (15:45)
--- NOTE | 2017-11-19 18:53 | CP.PCM.PN ---
<NabilMichelleTorito Rodrigue - Last Filed: 11/19/17 19:06> Subjective - Date & Time of Evaluation Date of Evaluation: 11/19/17 Time of Evaluation: 18:53 - Subjective Subjective: Pt seen and examined this morning. Pt denies chest pain or SOB Objective - Vital Signs/Intake and Output Vital Signs (last 24 hours): Temp Pulse Resp BP Pulse Ox 98.3 F 100 H 18 104/55 L 94 L 11/19/17 06:00 11/19/17 06:00 11/19/17 06:00 11/19/17 06:00 11/19/17 06:00 Intake and Output: 11/19/17 11/19/17 06:59 18:59 Intake Total 600 Balance 600 - Medications Medications: Current Medications Folic Acid (Folic Acid) 1 mg JT DAILY [facility] Last Admin: 11/19/17 09:16 Dose: 1 mg Lidocaine (Lidoderm) 1 ea TD DAILY [facility] Last Admin: 11/19/17 09:20 Dose: 1 ea Lorazepam (Ativan) 1 mg IVP Q6H PRN; Protocol PRN Reason: Anxiety Last Admin: 11/19/17 11:10 Dose: 1 mg Metronidazole (Metrogel Cream) 0 gm TOP BID [facility] Last Admin: 11/19/17 17:36 Dose: 1 applic Nystatin (Nystop Topical Powder) 0 gm TOP BID [facility] Last Admin: 11/19/17 17:36 Dose: 1 applic Pantoprazole Sodium (Protonix Inj) 40 mg IVP Q12 [facility] Last Admin: 11/19/17 09:16 Dose: 40 mg Racepinephrine (Racepinephrine 2.25% Inhl Soln) 0.5 ml IH Q3 PRN PRN Reason: For Secretions - Labs Labs: 11/19/17 05:40 11/19/17 05:40 PT 11.6 SECONDS (9.4-12.5) 11/11/17 04:30 INR 1.02 11/11/17 04:30 APTT 26.9 Seconds (25.1-36.5) 11/11/17 04:30 - Constitutional Appears: No Acute Distress - Head Exam Head Exam: ATRAUMATIC, NORMOCEPHALIC - Eye Exam Eye Exam: EOMI - ENT Exam ENT Exam: Mucous Membranes Moist - Respiratory Exam Respiratory Exam: Clear to Ausculation Bilateral, NORMAL BREATHING PATTERN. absent: Wheezes, Respiratory Distress - Cardiovascular Exam Cardiovascular Exam: RRR, +S1, +S2 - GI/Abdominal Exam GI & Abdominal Exam: Soft, Normal Bowel Sounds. absent: Rigid - Extremities Exam Extremities Exam: Full ROM, Normal Inspection. absent: Tenderness - Neurological Exam Neurological Exam: Alert, Oriented x3 - Psychiatric Exam Psychiatric exam: Normal Affect, Normal Mood - Skin Skin Exam: Dry, Intact, Warm Assessment and Plan - Assessment and Plan (Free Text) Assessment: Pt is a 52 yo female with a PMH of alcohol abuse and cirrhosis, who was admitted for evaluation and treatment of hematemesis. 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 Patient is kept NPO and is s/p jejunostomy tube insertion. Plan: Hematemesis, Dysphagia, secondary to squamous cell carcinoma - EGD (11/04): large friable, fungating, ulcerative mass found in hypopharynx, completely obstructing airway - Soft tissue neck CT: two apparent separate masses including the glottis, 2x1.9cm and upper esophagus/pharyngo esophageal junction 3.3x2.4cm - Laryngoscopy (11/11): large supraglottic pharyngeal mass extending to hypoglossal region - continue radiation treatments - home health, social work consulted - heme/onc Dr. Weller - radiation oncology Dr. Carrero - GI consulted, Dr. Herrera Liver cirrhosis - CT abd: cirrhotic liver, no acute findings - GI consult: Dr. Herrera Thrombocytopenia - Heme/Onc consulted, Dr. Cleveland Alcohol Abuse, Anxiety - Ativan 1 q6 PRN anxiety - aspiration, fall, and seizure precautions - Advised cessation Ppx - SCD - protonix Pt seen, examined, assessment and plan discussed with Dr Cristina Ferrer PGY1 Internal Medicine Resident <Kofi Evans - Last Filed: 11/19/17 19:22> Objective - Vital Signs/Intake and Output Vital Signs (last 24 hours): Temp Pulse Resp BP Pulse Ox 98.3 F 100 H 18 104/55 L 94 L 11/19/17 06:00 11/19/17 06:00 11/19/17 06:00 11/19/17 06:00 11/19/17 06:00 - Medications Medications: Current Medications Folic Acid (Folic Acid) 1 mg JT DAILY [facility] Last Admin: 11/19/17 09:16 Dose: 1 mg Lidocaine (Lidoderm) 1 ea TD DAILY [facility] Last Admin: 11/19/17 09:20 Dose: 1 ea Lorazepam (Ativan) 1 mg IVP Q6H PRN; Protocol PRN Reason: Anxiety Last Admin: 11/19/17 11:10 Dose: 1 mg Metronidazole (Metrogel Cream) 0 gm TOP BID [facility] Last Admin: 11/19/17 17:36 Dose: 1 applic Nystatin (Nystop Topical Powder) 0 gm TOP BID [facility] Last Admin: 11/19/17 17:36 Dose: 1 applic Pantoprazole Sodium (Protonix Inj) 40 mg IVP Q12 [facility] Last Admin: 11/19/17 09:16 Dose: 40 mg Racepinephrine (Racepinephrine 2.25% Inhl Soln) 0.5 ml IH Q3 PRN PRN Reason: For Secretions - Labs Labs: 11/19/17 05:40 11/19/17 05:40 PT 11.6 SECONDS (9.4-12.5) 11/11/17 04:30 INR 1.02 11/11/17 04:30 APTT 26.9 Seconds (25.1-36.5) 11/11/17 04:30 Attending/Attestation - Attestation I have personally seen and examined this patient.: Yes I have fully participated in the care of the patient.: Yes I have reviewed all pertinent clinical information, including history, physical exam and plan: Yes Notes (Text): 11/19/17 19:22 52 year old female with past medical history of alcohol abuse and cirrhosis who presented with hematemesis. She was found to have a large friable mass in the hypopharynx. Biopsy showed squamous cell carcinoma. She is s/p jejunostomy tube. She is tolerating feeds. She is being followed by hematology/oncology and radiation/oncology. She is now receiving radiation treatment. She was counselled on alcohol abstinence. Kofi Evans MD [facility]
--- NOTE | 2017-11-19 21:40 | CP.PCM.PN ---
<Kory Bryan - Last Filed: 11/20/17 10:35> Subjective - Date & Time of Evaluation Date of Evaluation: 11/19/17 Time of Evaluation: 21:38 - Subjective Subjective: Terrence Irvin PGY2 - GI Progress Note Patient seen and examined this AM. No acute events reported overnight. Patient continues to have difficulty swallowing solids, liquids and her own saliva. Patient indicates she still produces some blood when spitting up. Objective - Vital Signs/Intake and Output Vital Signs (last 24 hours): Temp Pulse Resp BP Pulse Ox 98.3 F 100 H 18 104/55 L 94 L 11/19/17 06:00 11/19/17 06:00 11/19/17 06:00 11/19/17 06:00 11/19/17 06:00 - Medications Medications: Current Medications Folic Acid (Folic Acid) 1 mg JT DAILY [facility] Last Admin: 11/19/17 09:16 Dose: 1 mg Lidocaine (Lidoderm) 1 ea TD DAILY [facility] Last Admin: 11/19/17 09:20 Dose: 1 ea Lorazepam (Ativan) 1 mg IVP Q6H PRN; Protocol PRN Reason: Anxiety Last Admin: 11/19/17 11:10 Dose: 1 mg Metronidazole (Metrogel Cream) 0 gm TOP BID [facility] Last Admin: 11/19/17 17:36 Dose: 1 applic Nystatin (Nystop Topical Powder) 0 gm TOP BID [facility] Last Admin: 11/19/17 17:36 Dose: 1 applic Pantoprazole Sodium (Protonix Inj) 40 mg IVP Q12 [facility] Last Admin: 11/19/17 09:16 Dose: 40 mg Racepinephrine (Racepinephrine 2.25% Inhl Soln) 0.5 ml IH Q3 PRN PRN Reason: For Secretions - Labs Labs: 11/19/17 05:40 11/19/17 05:40 PT 11.6 SECONDS (9.4-12.5) 11/11/17 04:30 INR 1.02 11/11/17 04:30 APTT 26.9 Seconds (25.1-36.5) 11/11/17 04:30 - Constitutional Appears: No Acute Distress, Older Than Stated Age, Cachectic, Chronically Ill - Head Exam Head Exam: ATRAUMATIC, NORMOCEPHALIC - Eye Exam Eye Exam: EOMI, PERRL - ENT Exam ENT Exam: Mucous Membranes Moist - Neck Exam Neck Exam: Tenderness - Respiratory Exam Respiratory Exam: Clear to Ausculation Bilateral, NORMAL BREATHING PATTERN - Cardiovascular Exam Cardiovascular Exam: REGULAR RHYTHM, +S1, +S2 - GI/Abdominal Exam GI & Abdominal Exam: Soft, Normal Bowel Sounds - Extremities Exam Extremities Exam: Normal Inspection - Neurological Exam Neurological Exam: Alert, Awake, Oriented x3 Neuro motor strength exam: Left Upper Extremity: 5, Right Upper Extremity: 5, Left Lower Extremity: 5, Right Lower Extremity: 5 - Psychiatric Exam Psychiatric exam: Flat Affect - Skin Skin Exam: Dry, Warm Assessment and Plan - Assessment and Plan (Free Text) Assessment: 52 year old female with past medical history significant for alcoholic cirrhosis, ascites, depression who presented to the [facility] [place] ED for dysphagia and coughing up blood. Patient has history of oropharynx abnormal with polypoid friable lesion from EGD in 10/2016. Plan: Progressive Dysphagia Change in voice Bleeding Esophageal Mass Chronic anemia Thrombocytopenia Alcoholic Liver Cirrhosis - MELDS 21 on admission, DF 54. Previous friable polypoid lesion of the opropharynx - EGD 2016 Elevated INR hx of Barretts - Continue chemo and radation therapy as per Oncology and Rad Onc - Further investigation to be conducted into the role Cetuximab will play with patient's underlying cirrhosis, continue to recommend possibility of dose reduction - Continue with protonix - H/H stable at this time continue to monitor - Further recommendations as per Dr. Herrera <Olman Herrera V - Last Filed: 11/29/17 22:54> Objective - Vital Signs/Intake and Output Vital Signs (last 24 hours): Temp Pulse Resp BP Pulse Ox 98.4 F 87 19 81/52 L 97 11/29/17 17:37 11/29/17 22:00 11/29/17 17:37 11/29/17 17:37 11/29/17 17:37 Intake and Output: 11/29/17 11/30/17 18:59 06:59 Intake Total 480 Output Total 1250 Balance -770 - Medications Medications: Current Medications Acetaminophen (Tylenol 160mg/5ml Oral Soln) 320 mg PO Q4 PRN PRN Reason: Pain, Mild (1-3) Last Admin: 11/24/17 17:42 Dose: 320 mg Folic Acid (Folic Acid) 1 mg JT DAILY [facility] Last Admin: 11/29/17 09:19 Dose: 1 mg Potassium Chloride 30 meq/ (Sodium Chloride) 1,015 mls @ 40 mls/hr IV .Q24H [facility] Last Admin: 11/29/17 05:45 Dose: 40 mls/hr Ipratropium [place] (Atrovent) 0.5 mg IH [id number] [facility] Last Admin: 11/29/17 19:54 Dose: 0.5 mg Nystatin (Nystop Topical Powder) 0 gm TOP BID [facility] Last Admin: 11/28/17 18:11 Dose: Not Given Nystatin (Nystatin Oral Susp) 5 ml PO QID [facility] Last Admin: 11/29/17 21:32 Dose: 5 ml Pantoprazole Sodium (Protonix Inj) 20 mg IVP Q12 [facility] Last Admin: 11/29/17 21:33 Dose: 20 mg Prednisone (Prednisone Tab) 10 mg PO DAILY [facility] Last Admin: 11/29/17 09:19 Dose: 10 mg Scopolamine (Transderm-Scop) 1 patch TD Q3D [facility] Last Admin: 11/28/17 18:11 Dose: 1 patch Tramadol HCl (Ultram) 50 mg GT TID PRN PRN Reason: Pain, moderate (4-7) Last Admin: 11/29/17 18:20 Dose: 50 mg - Labs Labs: 11/29/17 05:55 11/29/17 05:55 PT 11.6 SECONDS (9.4-12.5) 11/11/17 04:30 INR 1.02 11/11/17 04:30 APTT 26.9 Seconds (25.1-36.5) 11/11/17 04:30 Attending/Attestation - Attestation I have personally seen and examined this patient.: Yes I have fully participated in the care of the patient.: Yes I have reviewed all pertinent clinical information, including history, physical exam and plan: Yes Notes (Text): This is a delayed addendum to GI followup report dictated by the Appeals Analyst. The patient was seen and evaluated earlier. Medical records, lab studies, imagings were reviewed. Last 24 hours events reviewed. Agreed with the above treatment plan as outlined in Appeals Analyst 's notes with the addition of the following Discussed with Dr. Cleveland regarding the medication Cetuximab It appears reasonable to start the medication if needed given the clinical scenario Would recommend to closely follow LFTs and Hb ENT followup 11/29/17 22:53
[2017-11-20] MEDS ORDERED: Sodium Chloride 0.9% 500 ML IV STA ×4 (00:32→17:05)
[2017-11-20] MEDS ORDERED: Sodium Chloride 0.9% 1,000 ML IV SCH (02:45)
[2017-11-20 07:15] LABS: BASO # 0.02 K/mm3 (0.0-2.0); BASO % 0.2 % (0.0-3.0); EOS % 0.5 % (1.5-5.0); GRAN # 7.2 (1.4-6.5); GRAN % 86.9 % (50.0-68.0); LYMPH # 0.5 (1.2-3.4); LYMPH % 5.9 % (22.0-35.0); MEAN CELL VOLUME 98.3 fl (80.0-105.0); MEAN CORPUSCULAR HEMOGLOBIN 31.5 pg (25.0-35.0); MEAN CORPUSCULAR HGB CONC 32.1 g/dl (31.0-37.0); MONO # 0.5 (0.1-0.6); MONO % 6.5 % (1.0-6.0); RBC 3.49 10^6/uL (3.5-6.1); RED CELL DISTRIBUTION WIDTH 15.1 % (11.5-14.5); WHITE BLOOD COUNT 8.3 10^3/ul (4.5-11.0)
[2017-11-20 07:44] LABS: ALB/GLOB RATIO 0.8 (1.1-1.8); ALBUMIN 2.5 g/dL (3.0-4.8); ALT/SGPT 26 U/L (7-56); AST/SGOT 26 U/L (14-36); BLOOD UREA NITROGEN 8 mg/dL (7-21); CALCIUM 7.8 mg/dL (8.4-10.5); GFR NON-AFRICAN AMERICAN > 60
--- NOTE | 2017-11-20 10:34 | CP.PCM.PN ---
<Kory Bryan - Last Filed: 11/20/17 16:30> Subjective - Date & Time of Evaluation Date of Evaluation: 11/20/17 Time of Evaluation: 10:31 - Subjective Subjective: Terrence Romerosang PGY2 - GI Progress Note Patient seen and examined this AM. Patient clinically unchanged. Continues to struggle with swalling saliva and continues to produce some small amounts of blood. Objective - Vital Signs/Intake and Output Vital Signs (last 24 hours): Temp Pulse Resp BP Pulse Ox 97.4 F L 108 H 18 80/53 L 96 11/20/17 06:00 11/20/17 06:00 11/20/17 06:00 11/20/17 06:00 11/20/17 06:00 Intake and Output: 11/20/17 11/20/17 06:59 18:59 Intake Total 0 Balance 0 - Medications Medications: Current Medications Folic Acid (Folic Acid) 1 mg JT DAILY [facility] Last Admin: 11/19/17 09:16 Dose: 1 mg Sodium Chloride (Sodium Chloride 0.9%) 1,000 mls @ 100 mls/hr IV .Q10H [facility] Lidocaine (Lidoderm) 1 ea TD DAILY [facility] Last Admin: 11/19/17 09:20 Dose: 1 ea Lorazepam (Ativan) 1 mg IVP Q6H PRN; Protocol PRN Reason: Anxiety Last Admin: 11/19/17 22:30 Dose: 1 mg Metronidazole (Metrogel Cream) 0 gm TOP BID [facility] Last Admin: 11/19/17 17:36 Dose: 1 applic Nystatin (Nystop Topical Powder) 0 gm TOP BID [facility] Last Admin: 11/19/17 17:36 Dose: 1 applic Pantoprazole Sodium (Protonix Inj) 40 mg IVP Q12 [facility] Last Admin: 11/19/17 22:29 Dose: 40 mg Racepinephrine (Racepinephrine 2.25% Inhl Soln) 0.5 ml IH Q3 PRN PRN Reason: For Secretions - Labs Labs: 11/20/17 07:00 11/20/17 07:00 PT 11.6 SECONDS (9.4-12.5) 11/11/17 04:30 INR 1.02 11/11/17 04:30 APTT 26.9 Seconds (25.1-36.5) 10/03/18 04:30 - Constitutional Appears: Non-toxic, Older Than Stated Age, Cachectic, Chronically Ill - Head Exam Head Exam: ATRAUMATIC, NORMOCEPHALIC - Eye Exam Eye Exam: EOMI, PERRL - ENT Exam ENT Exam: Mucous Membranes Moist - Neck Exam Neck Exam: Tenderness - Respiratory Exam Respiratory Exam: Clear to Ausculation Bilateral, NORMAL BREATHING PATTERN - Cardiovascular Exam Cardiovascular Exam: REGULAR RHYTHM, +S1, +S2 - GI/Abdominal Exam GI & Abdominal Exam: Soft, Normal Bowel Sounds - Extremities Exam Extremities Exam: Normal Inspection - Neurological Exam Neurological Exam: Alert, Awake, Oriented x3 Neuro motor strength exam: Left Upper Extremity: 5, Right Upper Extremity: 5, Left Lower Extremity: 5, Right Lower Extremity: 5 - Psychiatric Exam Psychiatric exam: Flat Affect - Skin Skin Exam: Dry, Warm Assessment and Plan - Assessment and Plan (Free Text) Assessment: 52 year old female with past medical history significant for alcoholic cirrhosis, ascites, depression who presented to the [facility] [place] [facility] for dysphagia and coughing up blood. Patient has history of oropharynx abnormal with polypoid friable lesion from EGD in 10/2016. Patient currently undergoing radiation therapy for squamous cell carcinoma of the neck Plan: Progressive Dysphagia Change in voice Bleeding Esophageal Mass Chronic anemia Thrombocytopenia Alcoholic Liver Cirrhosis - MELDS 21 on admission, DF 54. Previous friable polypoid lesion of the opropharynx - EGD 2016 Elevated INR hx of Barretts - Continue chemo and radation therapy as per Oncology and Rad Onc - Review articles has shown no significant findings of hepatotoxicity being reported with cetuximab in the context of colorectal carcinoma. At this time continue to investigate further indications into the effects of cetuximab on the liver in the setting of cirrhosis. Continue to recommend potential dose reduction if concerned for liver injury - Discussed findings with Dr. Cleveland regarding findings, proceed as per oncology - Continue with protonix - H/H stable at this time continue to monitor - Further recommendations as per Dr. Herrera <Olman Herrera V - Last Filed: 11/20/17 23:55> Objective - Vital Signs/Intake and Output Vital Signs (last 24 hours): Temp Pulse Resp BP Pulse Ox 97.4 F L 106 H 18 80/53 L 96 11/20/17 06:00 11/20/17 22:00 11/20/17 06:00 11/20/17 06:00 11/20/17 06:00 Intake and Output: 11/20/17 11/21/17 18:59 06:59 Intake Total 1550 Balance 1550 - Medications Medications: Current Medications Acetaminophen (Tylenol 160mg/5ml Oral Soln) 320 mg PO Q4 PRN PRN Reason: Pain, Mild (1-3) Folic Acid (Folic Acid) 1 mg JT DAILY [facility] Last Admin: 11/20/17 11:25 Dose: 1 mg Sodium Chloride (Sodium Chloride 0.9%) 1,000 mls @ 100 mls/hr IV .Q10H [facility] Last Admin: 11/20/17 17:51 Dose: 100 mls/hr Lidocaine (Lidoderm) 1 ea TD DAILY [facility] Last Admin: 11/20/17 11:24 Dose: 1 ea Lorazepam (Ativan) 1 mg IVP Q6H PRN; Protocol PRN Reason: Anxiety Last Admin: 11/20/17 17:46 Dose: 1 mg Metronidazole (Metrogel Cream) 0 gm TOP BID [facility] Last Admin: 11/20/17 17:49 Dose: 1 applic Nystatin (Nystop Topical Powder) 0 gm TOP BID [facility] Last Admin: 11/20/17 17:49 Dose: 1 applic Pantoprazole Sodium (Protonix Inj) 40 mg IVP Q12 [facility] Last Admin: 11/20/17 21:08 Dose: 40 mg Racepinephrine (Racepinephrine 2.25% Inhl Soln) 0.5 ml IH Q3 PRN PRN Reason: For Secretions Tramadol HCl (Ultram) 50 mg GT TID PRN PRN Reason: Pain, moderate (4-7) - Labs Labs: 11/20/17 07:00 11/20/17 07:00 PT 11.6 SECONDS (9.4-12.5) 11/11/17 04:30 INR 1.02 11/11/17 04:30 APTT 26.9 Seconds (25.1-36.5) 11/11/17 04:30 Attending/Attestation - Attestation I have personally seen and examined this patient.: Yes I have fully participated in the care of the patient.: Yes I have reviewed all pertinent clinical information, including history, physical exam and plan: Yes Notes (Text): This is an addendum to GI progress report dictated by the GI Fellow.The patient was seen and examined earlier. Medical records, lab studies, imagings were reviewed. Last 24 hours events reviewed. Agreed with the above treatment plan as outlined in GI Fellow 's notes with the addition of the following discussed with Dr. Cleveland regarding cetuximab patient is planned to be started on the medication Close monitoring in view of cirrhosis 11/20/17 23:52
[2017-11-20] MEDS: Lidocaine 5% Patch TD SCH (11:24)
[2017-11-20] MEDS: Nystatin 100,000 Units/gm Topical Pow(15 gm) TOP SCH ×2 (11:26→17:49)
[2017-11-20] MEDS: MetroNIDAZOLE 0.75% Cream(45 gm) TOP SCH ×2 (11:26→17:49)
--- NOTE | 2017-11-20 14:16 | CP.PCM.PN ---
<Torito Ferrer - Last Filed: 11/20/17 14:41> Subjective - Date & Time of Evaluation Date of Evaluation: 11/20/17 Time of Evaluation: 14:12 - Subjective Subjective: Pt seen and examined at bedside this morning. Pt denies chest pain, or SOB Objective - Vital Signs/Intake and Output Vital Signs (last 24 hours): Temp Pulse Resp BP Pulse Ox 97.4 F L 108 H 18 80/53 L 96 11/20/17 06:00 11/20/17 06:00 11/20/17 06:00 11/20/17 06:00 11/20/17 06:00 Intake and Output: 11/20/17 11/20/17 06:59 18:59 Intake Total 0 Balance 0 - Medications Medications: Current Medications Folic Acid (Folic Acid) 1 mg JT DAILY [facility] Last Admin: 11/20/17 11:25 Dose: 1 mg Sodium Chloride (Sodium Chloride 0.9%) 1,000 mls @ 100 mls/hr IV .Q10H [facility] Lidocaine (Lidoderm) 1 ea TD DAILY [facility] Last Admin: 11/20/17 11:24 Dose: 1 ea Lorazepam (Ativan) 1 mg IVP Q6H PRN; Protocol PRN Reason: Anxiety Last Admin: 11/20/17 11:22 Dose: 1 mg Metronidazole (Metrogel Cream) 0 gm TOP BID [facility] Last Admin: 11/20/17 11:26 Dose: 1 applic Nystatin (Nystop Topical Powder) 0 gm TOP BID [facility] Last Admin: 11/20/17 11:26 Dose: 1 applic Pantoprazole Sodium (Protonix Inj) 40 mg IVP Q12 [facility] Last Admin: 11/20/17 11:22 Dose: 40 mg Racepinephrine (Racepinephrine 2.25% Inhl Soln) 0.5 ml IH Q3 PRN PRN Reason: For Secretions - Labs Labs: 11/20/17 07:00 11/20/17 07:00 PT 11.6 SECONDS (9.4-12.5) 11/11/17 04:30 INR 1.02 11/11/17 04:30 APTT 26.9 Seconds (25.1-36.5) 11/11/17 04:30 - Constitutional Appears: Non-toxic, No Acute Distress - Head Exam Head Exam: ATRAUMATIC, NORMAL INSPECTION, NORMOCEPHALIC - Eye Exam Eye Exam: EOMI - ENT Exam ENT Exam: Mucous Membranes Moist - Neck Exam Neck Exam: Full ROM - Respiratory Exam Respiratory Exam: Clear to Ausculation Bilateral, NORMAL BREATHING PATTERN. absent: Accessory Muscle Use, Wheezes, Respiratory Distress - Cardiovascular Exam Cardiovascular Exam: RRR, +S1, +S2. absent: Diastolic murmur, Murmur - GI/Abdominal Exam GI & Abdominal Exam: Soft, Normal Bowel Sounds. absent: Tenderness Additional comments: J tube in place, pt reports abdominal tenderness - Extremities Exam Extremities Exam: Full ROM. absent: Calf Tenderness, Pedal Edema, Tenderness - Neurological Exam Neurological Exam: Alert, Awake, Oriented x3 - Psychiatric Exam Psychiatric exam: Normal Affect, Normal Mood - Skin Skin Exam: Dry, Normal Color, Warm Assessment and Plan - Assessment and Plan (Free Text) Assessment: Pt is a 52 yo female with a PMH of alcohol abuse and cirrhosis, who was admitted for evaluation and treatment of hematemesis. 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 Patient is kept NPO and is s/p jejunostomy tube insertion. Plan: Hematemesis, Dysphagia, secondary to squamous cell carcinoma - EGD (11/04): large friable, fungating, ulcerative mass found in hypopharynx, completely obstructing airway - Soft tissue neck CT: two apparent separate masses including the glottis, 2x1.9cm and upper esophagus/pharyngo esophageal junction 3.3x2.4cm - Laryngoscopy (11/11): large supraglottic pharyngeal mass extending to hypoglossal region - continue radiation treatments - pt started on racepinephrine - home health, social work consulted - heme/onc Dr. Weller - radiation oncology Dr. Carrero - GI consulted, Dr. Herrera recommends that further investigation to be cond ucted into the role of Cetuximab will play with the pt underlying cirrhosis, continue to recommend possibility of dose reduction Hypotension - BP 80/50 - pt given IVF bolus and placed on maintenance fluids - pt placed on remote Tele - continue to monitor Liver cirrhosis - CT abd: cirrhotic liver, no acute findings - GI consult: Dr. Herrera following Thrombocytopenia - Heme/Onc consulted, Dr. Cleveland Alcohol Abuse, Anxiety - Ativan 1 q6 PRN anxiety - aspiration, fall, and seizure precautions - Advised cessation Ppx - SCD - protonix Pt seen, examined, assessment and plan discussed with Dr Cristina Ferrer PGY1, Internal Medicine Resident <Kofi Evans - Last Filed: 11/20/17 17:00> Objective - Vital Signs/Intake and Output Vital Signs (last 24 hours): Temp Pulse Resp BP Pulse Ox 97.4 F L 108 H 18 80/53 L 96 11/20/17 06:00 11/20/17 06:00 11/20/17 06:00 11/20/17 06:00 11/20/17 06:00 Intake and Output: 11/20/17 11/20/17 06:59 18:59 Intake Total 0 Balance 0 - Medications Medications: Current Medications Folic Acid (Folic Acid) 1 mg JT DAILY [facility] Last Admin: 11/20/17 11:25 Dose: 1 mg Sodium Chloride (Sodium Chloride 0.9%) 1,000 mls @ 100 mls/hr IV .Q10H [facility] Lidocaine (Lidoderm) 1 ea TD DAILY [facility] Last Admin: 11/20/17 11:24 Dose: 1 ea Lorazepam (Ativan) 1 mg IVP Q6H PRN; Protocol PRN Reason: Anxiety Last Admin: 11/20/17 11:22 Dose: 1 mg Metronidazole (Metrogel Cream) 0 gm TOP BID [facility] Last Admin: 11/20/17 11:26 Dose: 1 applic Nystatin (Nystop Topical Powder) 0 gm TOP BID [facility] Last Admin: 11/20/17 11:26 Dose: 1 applic Pantoprazole Sodium (Protonix Inj) 40 mg IVP Q12 [facility] Last Admin: 11/20/17 11:22 Dose: 40 mg Racepinephrine (Racepinephrine 2.25% Inhl Soln) 0.5 ml IH Q3 PRN PRN Reason: For Secretions Tramadol HCl (Ultram) 50 mg GT TID PRN PRN Reason: Pain, moderate (4-7) - Labs Labs: 11/20/17 07:00 11/20/17 07:00 PT 11.6 SECONDS (9.4-12.5) 11/11/17 04:30 INR 1.02 11/11/17 04:30 APTT 26.9 Seconds (25.1-36.5) 11/11/17 04:30 Attending/Attestation - Attestation I have personally seen and examined this patient.: Yes I have fully participated in the care of the patient.: Yes I have reviewed all pertinent clinical information, including history, physical exam and plan: Yes Notes (Text): 11/20/17 16:58 52 year old female with past medical history of alcohol abuse and cirrhosis who presented with hematemesis. She was found to have a large friable mass in the hypopharynx. Biopsy showed squamous cell carcinoma. She is being followed by GI, hematology/oncology and radiation/oncology. She is receiving radiation treatment. She is s/p jejunostomy tube. She is tolerating feeds. Overnight she was hypotensive requiring bolus. Review of vitals show she runs low normal blood pressure. Will start maintainence fluids and monitor. She was counselled on alcohol abstinence. Kofi Evans MD [facility]
[2017-11-20] MEDS: Sodium Chloride 0.9% 1,000 ML IV SCH (17:51)
[2017-11-20] MEDS ORDERED: Acetaminophen 160 mg/5 ml UD PO PRN (19:12)
--- NOTE | 2017-11-21 | PN ---
DATE: 11/20/2017 This is [facility] the medical floor. For Dr. Cleveland. SUBJECTIVE: The patient is a 52-year-old female presently being evaluated for head and neck cancer, being treated with radiation as per Dr. Cleveland's recommendation with J-tube placement recently with the patient now transferred to the Oncology floor for Erbitux treatment to begin in 3 days' time. The patient presently is complaining of irritation to her posterior pharynx with patient having completed radiation earlier today with 35 sessions total to end in 01/05/2018. With this, there was concern for her nutritional status with a consult being requested for a calorie count along with Renal contaminated land consultant, Dr. Whyte for hypotension episodes for which the patient is receiving IV boluses of normal saline. She is n.p.o. with concern for radiation induced edema of her posterior pharynx, compromising her airway as the patient does not have tracheostomy, with a consult with Dr. Tilley, Pulmonary also recommended as per Dr. Cleveland, which will be done. We will also recommend tramadol to be given for her pain as Tylenol does not help. She reports with the patient as noted to be transferred to the Oncology floor. OBJECTIVE: VITAL SIGNS: Temperature 97.4, pulse 108, respirations 18, blood pressure 80/53, pulse ox 96%. HEENT: Temporal muscle wasting noted with oropharynx essentially negative. NECK: Supple with erythema secondary to radiation. LUNGS: Clear. HEART: Regular rate. ABDOMEN: Soft with gastrostomy tube with multiple dressings noted. EXTREMITIES: No edema. SKIN: Warm and dry. NEUROLOGIC: Awake and alert, speaking with hoarse voice. LABORATORY DATA: Patient's labs were done. White blood cell count of 8.3, hemoglobin 11, hematocrit 34.3, platelet count of 123,000 with a chem metabolic panel showing a calcium of 7.8, total protein of 5.4, albumin of 2.5. A CA value was done on 11/03, it was noted to be 1.9 with a CA 19-9 of 21.5 on 11/03/2017. Patient had hepatitis testing done on 11/17, it was negative as was HIV testing. Patient did have a direct microlaryngoscopy with biopsy, esophagoscopy as per Dr. Newman for hematemesis earlier in her hospital stay. 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 HPV testing was negative on specimen submitted. ASSESSMENT: For this patient is that of squamous cell carcinoma of the oropharynx, head and neck cancer, status post jejunostomy tube placement, history of EtOH abuse, cirrhosis, sequestration thrombocytopenia, coagulopathy, and also hypotension. PLAN: Plan for this patient, after conversation with Dr. Cleveland is as above. We will ask for consults with Dr. Whyte, Renal regarding her hypotension along with possibility for fluid management as she has a jejunostomy tube with her free water 250 mL every 12 hours with Jevity of 50 mL an hour with 100 mL an hour normal saline to be addressed as per Dr. Whyte, Renal contaminated land consultant. We will also have Dr. Tilley to monitor her for her respiratory compromise, status post radiation therapy with consideration for assist with tracheostomy should it be indicated. In the interim, we will give humidified 2 L nasal cannula oxygen with further recommendations as per Dr. Tilley. We will also recommend tramadol for her pain to see if this will ease her pain as Tylenol does not appear to be working in it, was discontinued recently. This is a complex patient with a comprehensive medically necessary and appropriate visit carried out in excess of 40 minutes with patient's management reviewed with consultants as above. Prognosis for this patient is guarded. Baldo Best MD
[2017-11-21 07:59] LABS: BASO # 0.01 K/mm3 (0.0-2.0); BASO % 0.1 % (0.0-3.0); EOS # 0.1 (0.0-0.7); EOS % 0.7 % (1.5-5.0); GRAN # 6.37 (1.4-6.5); GRAN % 87.9 % (50.0-68.0); HEMOGLOBIN 10.1 g/dL (12.0-16.0); LYMPH # 0.5 (1.2-3.4); LYMPH % 6.5 % (22.0-35.0); MEAN CELL VOLUME 98.4 fl (80.0-105.0); MEAN CORPUSCULAR HEMOGLOBIN 31.9 pg (25.0-35.0); MEAN CORPUSCULAR HGB CONC 32.4 g/dl (31.0-37.0); MONO # 0.4 (0.1-0.6); MONO % 4.8 % (1.0-6.0); RBC 3.17 10^6/uL (3.5-6.1); RED CELL DISTRIBUTION WIDTH 14.9 % (11.5-14.5); WHITE BLOOD COUNT 7.3 10^3/ul (4.5-11.0)
[2017-11-21 08:29] LABS: ALB/GLOB RATIO 0.8 (1.1-1.8); ALBUMIN 2.3 g/dL (3.0-4.8); ALT/SGPT 27 U/L (7-56); AST/SGOT 24 U/L (14-36); BLOOD UREA NITROGEN 8 mg/dL (7-21); CALCIUM 7.6 mg/dL (8.4-10.5); GFR NON-AFRICAN AMERICAN > 60
[2017-11-21] MEDS: Sodium Chloride 0.9% 1,000 ML IV SCH ×3 (09:14→17:14)
[2017-11-21] MEDS: Nystatin 100,000 Units/gm Topical Pow(15 gm) TOP SCH ×2 (09:29→17:14)
[2017-11-21] MEDS: Lidocaine 5% Patch TD SCH (09:29)
[2017-11-21] MEDS: MetroNIDAZOLE 0.75% Cream(45 gm) TOP SCH ×2 (09:29→17:14)
--- NOTE | 2017-11-21 15:41 | CP.PCM.PN ---
<Torito Ferrer - Last Filed: 11/21/17 18:48> Subjective - Date & Time of Evaluation Date of Evaluation: 11/21/17 Time of Evaluation: 15:40 - Subjective Subjective: Pt seen and examined at bedside. Pt has no new complaints at this time. Objective - Vital Signs/Intake and Output Vital Signs (last 24 hours): Temp Pulse Resp BP Pulse Ox 97.6 F 120 H 120 H 99/63 L 97 11/21/17 06:00 11/21/17 14:09 11/21/17 14:09 11/21/17 06:00 11/21/17 06:00 Intake and Output: 11/21/17 11/21/17 06:59 18:59 Intake Total 1550 Output Total 400 Balance 1550 -400 - Medications Medications: Current Medications Acetaminophen (Tylenol 160mg/5ml Oral Soln) 320 mg PO Q4 PRN PRN Reason: Pain, Mild (1-3) Folic Acid (Folic Acid) 1 mg JT DAILY [facility] Last Admin: 11/21/17 09:29 Dose: 1 mg Sodium Chloride (Sodium Chloride 0.9%) 1,000 mls @ 100 mls/hr IV .Q10H [facility] Last Admin: 11/21/17 09:14 Dose: 100 mls/hr Lidocaine (Lidoderm) 1 ea TD DAILY [facility] Last Admin: 11/21/17 09:29 Dose: Not Given Lorazepam (Ativan) 1 mg IVP Q6H PRN; Protocol PRN Reason: Anxiety Last Admin: 11/21/17 08:24 Dose: 1 mg Metronidazole (Metrogel Cream) 0 gm TOP BID [facility] Last Admin: 11/21/17 09:29 Dose: 1 applic Nystatin (Nystop Topical Powder) 0 gm TOP BID [facility] Last Admin: 11/21/17 09:29 Dose: 1 applic Pantoprazole Sodium (Protonix Inj) 40 mg IVP Q12 [facility] Last Admin: 11/21/17 09:29 Dose: 40 mg Racepinephrine (Racepinephrine 2.25% Inhl Soln) 0.5 ml IH Q3 PRN PRN Reason: For Secretions Tramadol HCl (Ultram) 50 mg GT TID PRN PRN Reason: Pain, moderate (4-7) Last Admin: 11/21/17 09:38 Dose: 50 mg - Labs Labs: 11/21/17 07:45 11/21/17 07:45 PT 11.6 SECONDS (9.4-12.5) 11/11/17 04:30 INR 1.02 11/11/17 04:30 APTT 26.9 Seconds (25.1-36.5) 11/11/17 04:30 - Constitutional Appears: No Acute Distress - Head Exam Head Exam: ATRAUMATIC, NORMAL INSPECTION, NORMOCEPHALIC - Eye Exam Eye Exam: EOMI, Normal appearance - ENT Exam ENT Exam: Mucous Membranes Moist - Respiratory Exam Respiratory Exam: Clear to Ausculation Bilateral, NORMAL BREATHING PATTERN. absent: Accessory Muscle Use, Wheezes, Respiratory Distress - Cardiovascular Exam Cardiovascular Exam: RRR, +S1, +S2. absent: Diastolic murmur - GI/Abdominal Exam GI & Abdominal Exam: Soft, Tenderness, Normal Bowel Sounds. absent: Rebound Additional comments: j tube in place, mild tenderness to palpation - Extremities Exam Extremities Exam: Full ROM, Normal Inspection - Neurological Exam Neurological Exam: Alert, Awake, Oriented x3 - Psychiatric Exam Psychiatric exam: Normal Affect, Normal Mood - Skin Skin Exam: Dry, Intact, Warm Assessment and Plan - Assessment and Plan (Free Text) Assessment: Pt is a 52 yo female with a PMH of alcohol abuse and cirrhosis, who was admitted for evaluation and treatment of hematemesis. 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 Patient is kept NPO and is s/p jejunostomy tube insertion. Plan: Hematemesis, Dysphagia, secondary to squamous cell carcinoma - EGD (11/04): large friable, fungating, ulcerative mass found in hypopharynx, completely obstructing airway - Soft tissue neck CT: two apparent separate masses including the glottis, 2x1. 9cm and upper esophagus/pharyngo esophageal junction 3.3x2.4cm - Laryngoscopy (11/11): large supraglottic pharyngeal mass extending to hypoglossal region - continue radiation treatments - racepinephrine - continue tramadol for pain - home health, social work consulted - heme/onc Dr. Weller - radiation oncology Dr. Carrero - GI consulted, Dr. Herrera recommends that further investigation to be condu cted into the role of Cetuximab will play with the pt underlying cirrhosis, continue to recommend possibility of dose reduction Hypotension - BP has improved, continue to monitor - will consider bolus if hypotension occurs - pt placed on remote Tele Liver cirrhosis - CT abd: cirrhotic liver, no acute findings - GI consult: Dr. Herrera following Thrombocytopenia - Heme/Onc consulted, Dr. Cleveland Alcohol Abuse, Anxiety - Ativan 1 q6 PRN anxiety - aspiration, fall, and seizure precautions - Advised cessation Ppx - SCD - protonix Pt seen, examined, assessment and plan discussed with Dr Cristina Ferrer PGY1, Internal Medicine Resident <Kofi Evans - Last Filed: 11/22/17 07:49> Objective - Vital Signs/Intake and Output Vital Signs (last 24 hours): Temp Pulse Resp BP Pulse Ox 98.0 F 108 H 19 97/64 L 97 11/21/17 17:15 11/21/17 17:15 11/21/17 17:15 11/21/17 17:15 11/21/17 17:15 - Medications Medications: Current Medications Acetaminophen (Tylenol 160mg/5ml Oral Soln) 320 mg PO Q4 PRN PRN Reason: Pain, Mild (1-3) Albuterol/Ipratropium (Duoneb 3 Mg/0.5 Mg (3 Ml) Ud) 3 ml IH [id number] [facility] Last Admin: 11/22/17 01:43 Dose: 3 ml Folic Acid (Folic Acid) 1 mg JT DAILY [facility] Last Admin: 11/21/17 09:29 Dose: 1 mg Sodium Chloride (Sodium Chloride 0.9%) 1,000 mls @ 100 mls/hr IV .Q10H [facility] Last Admin: 11/21/17 17:14 Dose: 100 mls/hr Lidocaine (Lidoderm) 1 ea TD DAILY [facility] Last Admin: 11/21/17 09:29 Dose: Not Given Lorazepam (Ativan) 1 mg IVP Q6H PRN; Protocol PRN Reason: Anxiety Last Admin: 11/21/17 23:00 Dose: 1 mg Methylprednisolone (Solu-Medrol) 40 mg IVP Q12 [facility] Last Admin: 11/21/17 22:16 Dose: 40 mg Metronidazole (Metrogel Cream) 0 gm TOP BID [facility] Last Admin: 11/21/17 17:14 Dose: 1 applic Metronidazole (Flagyl) 500 mg PO Q8 [facility]; Protocol Last Admin: 11/22/17 06:14 Dose: 500 mg Nystatin (Nystop Topical Powder) 0 gm TOP BID [facility] Last Admin: 11/21/17 17:14 Dose: 1 applic Nystatin (Nystatin Oral Susp) 5 ml PO QID [facility] Last Admin: 11/21/17 22:16 Dose: 5 ml Pantoprazole Sodium (Protonix Inj) 40 mg IVP Q12 [facility] Last Admin: 11/21/17 22:16 Dose: 40 mg Racepinephrine (Racepinephrine 2.25% Inhl Soln) 0.5 ml IH Q3 PRN PRN Reason: For Secretions Last Admin: 11/21/17 23:24 Dose: 0.5 ml Tramadol HCl (Ultram) 50 mg GT TID PRN PRN Reason: Pain, moderate (4-7) Last Admin: 11/21/17 09:38 Dose: 50 mg - Labs Labs: 11/22/17 05:00 11/22/17 06:30 PT 11.6 SECONDS (9.4-12.5) 11/11/17 04:30 INR 1.02 11/11/17 04:30 APTT 26.9 Seconds (25.1-36.5) 11/11/17 04:30 Attending/Attestation - Attestation I have personally seen and examined this patient.: Yes I have fully participated in the care of the patient.: Yes I have reviewed all pertinent clinical information, including history, physical exam and plan: Yes Notes (Text): 11/21/17 52 year old female with past medical history of alcohol abuse and cirrhosis who presented with hematemesis. She was found to have a large friable mass in the hypopharynx. Biopsy showed squamous cell carcinoma. She is being followed by GI, hematology/oncology and radiation/oncology. She is receiving radiation treatment. She is s/p jejunostomy tube and tolerating feeds. Pulmonary evaluation was appreciated; started iv steroids, antibiotics and nystatin. BP has improved with addition of iv fluids. Will continue to monitor. Kofi Evans MD [facility]
--- NOTE | 2017-11-21 16:26 | PN ---
DATE: 11/21/2017 This is [facility] medical floor. For Dr. Cleveland. SUBJECTIVE: The patient is a 52-year-old female, now being treated with radiation for head and neck cancer with radiation Thursday through Thursday Thursday she was not treated with the patient reporting that her breathing is minimally improved. We will ask for consult with Dr. Tilley for her respiratory compromise as the patient was considered to be possibly a candidate for tracheostomy prior to her treatment and now with radiation continuing, there was concern for compromised airway. At present, she reports that the irritation is there, but not as significant as it was yesterday with the patient requesting her anxiety medication continue. Otherwise, we will ask for evaluations for her hypotension parameters for which saline boluses were being given with consult with Dr. Whyte requested. Otherwise, the patient is to begin treatment with Erbitux in 2 days's time as per Dr. Cleveland's protocols. OBJECTIVE PHYSICAL EXAMINATION: VITAL SIGNS: Temperature 97.6, pulse 108, respirations 20, blood pressure 99/63, pulse ox 97%. HEENT: Temporal muscle wasting noted. Oropharynx, tongue is moist. NECK: Supple. HEART: Tachy rate. Regular rhythm. LUNGS: Clear. ABDOMEN: Soft. J-tube in situ. EXTREMITIES: No edema. SKIN: Warm and dry. NEUROLOGIC: Awake and alert. LABORATORY DATA: The patient's labs were done. White blood cell count of 7.3, hemoglobin 10.1, hematocrit of 31.2, platelet count of 105,000 with a chem metabolic panel showing a total protein of 5.1 with an albumin of 2.3, calcium is 7.6, otherwise normal chem metabolic panel. ASSESSMENT: The assessment for this patient is that of squamous cell carcinoma of supraglottic area, head and neck cancer, status post jejunostomy tube placement, compromised nutrition, history of ethyl alcohol abuse, cirrhosis, sequestration thrombocytopenia, hypotensive episodes, rule out respiratory compromise. PLAN: Plan for this patient is as above with consults with Dr. Tilley and Dr. Whyte requested with continuation of her present medical regimen with Erbitux to begin in addition to her radiation in 2 days' time as per Dr. Cleveland's recommendations. Prognosis for this patient is guarded. We will monitor clinically with labs. This is a complex patient with a comprehensive medically necessary and appropriate visit carried out in excess of 25 minutes with the patient's questions answered to her satisfaction. Baldo Best MD
[2017-11-21] MEDS: Nystatin 100,000 Units/ml Oral Susp 5 ml UD PO SCH ×2 (17:13→22:16)
[2017-11-21] MEDS: Albuterol-Ipratrop 3 mg / 0.5 (3 ml) UD IH SCH (20:19)
[2017-11-21] MEDS: MethylPREDNISolone 40 mg Vial IVP SCH (22:16)
[2017-11-22] MEDS: Albuterol-Ipratrop 3 mg / 0.5 (3 ml) UD IH SCH ×4 (01:43→20:25)
[2017-11-22] MEDS ORDERED: DiphenhydrAMINE 50 mg/ml Inj IVP STA (01:52)
--- NOTE | 2017-11-22 04:57 | CON ---
DATE OF CONSULTATION: 11/21/2017 REFERRING PHYSICIAN: Dr. Eavns REASON FOR CONSULTATION: Cough, shortness of breath, and throat cancer. HISTORY OF PRESENT ILLNESS: This is a 52-year-old female with past medical history significant for excessive alcohol use, cirrhotic liver, depression, admitted with dysphagia, spitting out blood, lost 15-16 pounds in a few weeks, apparently had an oropharyngeal mass diagnosed about a year ago or so, but the patient was noncompliant, did not follow up. The biopsy showed squamous cell carcinoma, seen by Hematology/Oncology with dysphagia, ended up with a G-tube, getting feeding through the G-tube, but constantly having cough, shortness of breath, and blood-tinged sputum. No leg pain or leg swelling. PAST MEDICAL HISTORY: Hypopharyngeal mass, which I believe is a carcinoma, history of alcohol abuse, cirrhotic liver, depression, malnutrition. FAMILY HISTORY: Father of throat cancer, was smoker. SOCIAL HISTORY: She is a nonsmoker, but drinks alcohol and also snorts cocaine. ALLERGIES: NONE KNOWN. MEDICATIONS: She is on lorazepam 1 mg q.6h., folic acid 1 mg daily, Lidoderm patch affected area, metronidazole gel twice a day, nystatin topical powder twice a day, Protonix 40 mg IV q.12h. She is on IV fluid normal saline 100 mL/hr, Tylenol p.r.n., Ultram 50 mg G-tube three times a day p.r.n. REVIEW OF SYSTEMS: No headache. Has some rhinitis, cough, bringing up a lot of sputum with blood tinge. No chest pain. No abdominal pain, dysuria, leg pain or leg swelling. PHYSICAL EXAMINATION: VITAL SIGNS: Temperature is 98, heart is 105, respiratory rate is 20, blood pressure 99/63, pulse ox 97% on room air. HEENT: Moist mucous membranes. Crowded airway. NECK: Supple. No JVD. Has a throat cancer. LUNGS: Have scattered rhonchi. HEART: S1 and S2. ABDOMEN: Soft, nontender, nondistended. G-tube area looks okay. EXTREMITIES: No edema. NEUROLOGIC: Awake, alert, follows simple commands. LABORATORY DATA: Shows hemoglobin of 10.1, hematocrit 31.2, WBC 7.3, platelet count is 105. INR 1.02, PTT 27. Sodium 138, potassium 3.8, chloride 108, bicarbonate 28, BUN 8, creatinine 0.4, glucose 107, calcium 7.6. AST 24, ALT 27, alk phos is 57, albumin is 2.3. IMPRESSION AND PLAN: Squamous cell carcinoma supraglottic area, oropharyngeal dysphagia with mechanical obstruction of the oropharyngeal dysphagia requiring jejunostomy tube, malnutrition, alcohol abuse, cirrhotic liver, thrombocytopenia, recurrent cough and sputum production. CT scan of head and neck shows two separate masses including glottis and the apparent upper esophagopharyngeal junction. No significant lymphadenopathy appreciated. CT of the chest shows clear lungs, no infiltrates, so I will suggest adding inhaled bronchodilator for upper airway secretion. May add nasal saline 2 sprays each nostril every 3 hours for clearing secretion. We will add oral nystatin swish and spit. We will give a short course of antibiotics and steroids. There may be a component of acute bronchitis with oropharyngeal dysphagia. Thank you and we will follow with you. Adne Tilley MD
[2017-11-22 07:20] LABS: ALB/GLOB RATIO 0.8 (1.1-1.8); ALBUMIN 2.4 g/dL (3.0-4.8); ALT/SGPT 21 U/L (7-56); AST/SGOT 26 U/L (14-36); BLOOD UREA NITROGEN 9 mg/dL (7-21); CALCIUM 7.9 mg/dL (8.4-10.5); GFR NON-AFRICAN AMERICAN > 60
[2017-11-22 07:28] LABS: BASO # 0.01 K/mm3 (0.0-2.0); BASO % 0.2 % (0.0-3.0); GRAN # 6.19 (1.4-6.5); GRAN % 97.1 % (50.0-68.0); HEMOGLOBIN 10.3 g/dL (12.0-16.0); LYMPH # 0.1 (1.2-3.4); LYMPH % 1.6 % (22.0-35.0); MEAN CELL VOLUME 98.5 fl (80.0-105.0); MEAN CORPUSCULAR HEMOGLOBIN 31.6 pg (25.0-35.0); MEAN CORPUSCULAR HGB CONC 32.1 g/dl (31.0-37.0); MONO # 0.1 (0.1-0.6); MONO % 1.1 % (1.0-6.0); PLATELET COUNT 109 10^3/uL (120.0-450.0); RBC 3.26 10^6/uL (3.5-6.1); RED CELL DISTRIBUTION WIDTH 14.9 % (11.5-14.5); WHITE BLOOD COUNT 6.4 10^3/ul (4.5-11.0)
[2017-11-22] MEDS: MetroNIDAZOLE 0.75% Cream(45 gm) TOP SCH ×2 (09:41→18:02)
[2017-11-22] MEDS: Lidocaine 5% Patch TD SCH (09:41)
[2017-11-22] MEDS: MethylPREDNISolone 40 mg Vial IVP SCH ×2 (09:41→22:55)
[2017-11-22] MEDS: Nystatin 100,000 Units/ml Oral Susp 5 ml UD PO SCH ×4 (09:41→22:54)
[2017-11-22] MEDS: Nystatin 100,000 Units/gm Topical Pow(15 gm) TOP SCH ×2 (09:42→18:00)
[2017-11-22] MEDS: Sodium Chloride 0.9% 1,000 ML IV SCH (09:44)
[2017-11-22 11:07] LABS: NEUTROPHIL 97 % (50.0-70.0)
[2017-11-22 11:08] LABS: ANISOCYTOSIS SLIGHT; HYPOCHROMIA SLIGHT; LYMPHOCYTE 2 % (22.0-35.0); MONOCYTE 1 % (1.0-6.0); PLATELET ESTIMATE LOW (NORMAL)
--- NOTE | 2017-11-22 13:04 | CP.PCM.PN ---
<Torito Ferrer - Last Filed: 11/22/17 13:12> Subjective - Date & Time of Evaluation Date of Evaluation: 11/22/17 Time of Evaluation: 13:00 - Subjective Subjective: Pt seen and examined this morning. Pt denies blurry vision, dizziness, chest pain or SOB Objective - Vital Signs/Intake and Output Vital Signs (last 24 hours): Temp Pulse Resp BP Pulse Ox 98.8 F 104 H 20 91/62 L 95 11/22/17 06:00 11/22/17 10:00 11/22/17 09:40 11/22/17 09:40 11/22/17 06:00 - Medications Medications: Current Medications Acetaminophen (Tylenol 160mg/5ml Oral Soln) 320 mg PO Q4 PRN PRN Reason: Pain, Mild (1-3) Albuterol/Ipratropium (Duoneb 3 Mg/0.5 Mg (3 Ml) Ud) 3 ml IH [id number] [facility] Last Admin: 11/22/17 07:49 Dose: 3 ml Folic Acid (Folic Acid) 1 mg JT DAILY [facility] Last Admin: 11/22/17 09:41 Dose: 1 mg Sodium Chloride (Sodium Chloride 0.9%) 1,000 mls @ 100 mls/hr IV .Q10H [facility] Last Admin: 11/22/17 09:44 Dose: 100 mls/hr Lidocaine (Lidoderm) 1 ea TD DAILY [facility] Last Admin: 11/22/17 09:41 Dose: 1 ea Lorazepam (Ativan) 1 mg IVP Q6H PRN; Protocol PRN Reason: Anxiety Last Admin: 11/22/17 09:57 Dose: 1 mg Methylprednisolone (Solu-Medrol) 40 mg IVP Q12 [facility] Last Admin: 11/22/17 09:41 Dose: 40 mg Metronidazole (Metrogel Cream) 0 gm TOP BID [facility] Last Admin: 11/22/17 09:41 Dose: 1 applic Metronidazole (Flagyl) 500 mg PO Q8 [facility]; Protocol Last Admin: 11/22/17 06:14 Dose: 500 mg Nystatin (Nystop Topical Powder) 0 gm TOP BID [facility] Last Admin: 11/22/17 09:42 Dose: 1 applic Nystatin (Nystatin Oral Susp) 5 ml PO QID [facility] Last Admin: 11/22/17 09:41 Dose: 5 ml Pantoprazole Sodium (Protonix Inj) 20 mg IVP Q12 [facility] Racepinephrine (Racepinephrine 2.25% Inhl Soln) 0.5 ml IH Q3 PRN PRN Reason: For Secretions Last Admin: 11/21/17 23:24 Dose: 0.5 ml Tramadol HCl (Ultram) 50 mg GT TID PRN PRN Reason: Pain, moderate (4-7) Last Admin: 11/21/17 09:38 Dose: 50 mg - Labs Labs: 11/22/17 05:00 11/22/17 06:30 PT 11.6 SECONDS (9.4-12.5) 11/11/17 04:30 INR 1.02 11/11/17 04:30 APTT 26.9 Seconds (25.1-36.5) 11/11/17 04:30 - Constitutional Appears: Non-toxic, No Acute Distress - Head Exam Head Exam: ATRAUMATIC, NORMAL INSPECTION, NORMOCEPHALIC - Eye Exam Eye Exam: EOMI, Normal appearance - ENT Exam ENT Exam: Mucous Membranes Moist - Respiratory Exam Respiratory Exam: Clear to Ausculation Bilateral, NORMAL BREATHING PATTERN. absent: Accessory Muscle Use, Wheezes, Respiratory Distress - Cardiovascular Exam Cardiovascular Exam: RRR, +S1, +S2. absent: Diastolic murmur, Murmur - GI/Abdominal Exam GI & Abdominal Exam: Soft, Tenderness Additional comments: some tenderness around J-tube site - Extremities Exam Extremities Exam: Full ROM. absent: Calf Tenderness, Pedal Edema - Neurological Exam Neurological Exam: Alert, Awake, Oriented x3 - Psychiatric Exam Psychiatric exam: Normal Affect, Normal Mood - Skin Skin Exam: Dry, Normal Color, Warm Assessment and Plan - Assessment and Plan (Free Text) Assessment: Pt is a 52 yo female with a PMH of alcohol abuse and cirrhosis, who was admitted for evaluation and treatment of hematemesis. 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 Patient is kept NPO and is s/p jejunostomy tube insertion. Plan: Hematemesis, Dysphagia, secondary to squamous cell carcinoma - EGD (11/04): large friable, fungating, ulcerative mass found in hypopharynx, completely obstructing airway - Soft tissue neck CT: two apparent separate masses including the glottis, 2x1.9cm and upper esophagus/pharyngo esophageal junction 3.3x2.4cm - Laryngoscopy (11/11): large supraglottic pharyngeal mass extending to hypoglossal region - continue radiation treatments - racepinephrine - continue tramadol for pain - home health, social work consulted - heme/onc Dr. Weller - radiation oncology Dr. Alise Del Cid Pulalvin consulted, Nia Tilley inhaled bronchodilator for upper airway secretions, pt started on metronidazole and methylprednisolone 40 IVP q12 Hypotension - pt give 250NS bolus today - BP has improved, continue to monitor - pt placed on remote Tele - Nephro, consulted Liver cirrhosis - CT abd: cirrhotic liver, no acute findings - GI consult: Dr. Herrera recommends that further investigation to be conducted into the role of Cetuximab will play with the pt underlying cirrhosis, continue to recommend possibility of dose reduction Thrombocytopenia - plt 109 - Heme/Onc consulted, Dr. Cleveland Alcohol Abuse, Anxiety - Ativan 1 q6 PRN anxiety - aspiration, fall, and seizure precautions - Advised cessation Ppx - SCD - protonix Pt seen, examined, assessment and plan discussed with Dr Cristina Ferrer PGY1, Internal Medicine Resident <Kofi Evans - Last Filed: 11/22/17 13:34> Objective - Vital Signs/Intake and Output Vital Signs (last 24 hours): Temp Pulse Resp BP Pulse Ox 98.8 F 104 H 20 91/62 L 95 11/22/17 06:00 11/22/17 10:00 11/22/17 09:40 11/22/17 09:40 11/22/17 06:00 - Medications Medications: Current Medications Acetaminophen (Tylenol 160mg/5ml Oral Soln) 320 mg PO Q4 PRN PRN Reason: Pain, Mild (1-3) Albuterol/Ipratropium (Duoneb 3 Mg/0.5 Mg (3 Ml) Ud) 3 ml IH [id number] [facility] Last Admin: 11/22/17 07:49 Dose: 3 ml Folic Acid (Folic Acid) 1 mg JT DAILY [facility] Last Admin: 11/22/17 09:41 Dose: 1 mg Sodium Chloride (Sodium Chloride 0.9%) 1,000 mls @ 100 mls/hr IV .Q10H [facility] Last Admin: 11/22/17 09:44 Dose: 100 mls/hr Lidocaine (Lidoderm) 1 ea TD DAILY [facility] Last Admin: 11/22/17 09:41 Dose: 1 ea Lorazepam (Ativan) 1 mg IVP Q6H PRN; Protocol PRN Reason: Anxiety Last Admin: 11/22/17 09:57 Dose: 1 mg Methylprednisolone (Solu-Medrol) 40 mg IVP Q12 [facility] Last Admin: 11/22/17 09:41 Dose: 40 mg Metronidazole (Metrogel Cream) 0 gm TOP BID [facility] Last Admin: 11/22/17 09:41 Dose: 1 applic Metronidazole (Flagyl) 500 mg PO Q8 [facility]; Protocol Last Admin: 11/22/17 06:14 Dose: 500 mg Nystatin (Nystop Topical Powder) 0 gm TOP BID [facility] Last Admin: 11/22/17 09:42 Dose: 1 applic Nystatin (Nystatin Oral Susp) 5 ml PO QID [facility] Last Admin: 11/22/17 09:41 Dose: 5 ml Pantoprazole Sodium (Protonix Inj) 20 mg IVP Q12 [facility] Racepinephrine (Racepinephrine 2.25% Inhl Soln) 0.5 ml IH Q3 PRN PRN Reason: For Secretions Last Admin: 11/21/17 23:24 Dose: 0.5 ml Tramadol HCl (Ultram) 50 mg GT TID PRN PRN Reason: Pain, moderate (4-7) Last Admin: 11/21/17 09:38 Dose: 50 mg - Labs Labs: 11/22/17 05:00 11/22/17 06:30 PT 11.6 SECONDS (9.4-12.5) 11/11/17 04:30 INR 1.02 11/11/17 04:30 APTT 26.9 Seconds (25.1-36.5) 11/11/17 04:30 Attending/Attestation - Attestation I have personally seen and examined this patient.: Yes I have fully participated in the care of the patient.: Yes I have reviewed all pertinent clinical information, including history, physical exam and plan: Yes Notes (Text): 11/22/17 13:33 52 year old female with past medical history of alcohol abuse and cirrhosis who presented with hematemesis. She was found to have a large friable mass in the hypopharynx. Biopsy showed squamous cell carcinoma. She is being followed by GI, hematology/oncology and radiation/oncology. She is receiving radiation treatment. She is s/p jejunostomy tube and tolerating feeds. Pulmonary evaluation was appreciated; started iv steroids, antibiotics and nystatin. BP has improved since addition of iv fluids. Will continue to monitor. Kofi Evans MD [facility].
--- NOTE | 2017-11-22 20:43 | PN ---
DATE: 11/22/2017 PULMONARY PROGRESS NOTE REFERRING PHYSICIAN: Dr. Evans. SUBJECTIVE: She is lying in the bed, head at 45 degrees. Continue her by cough and producing large amount of secretion. Still have some blood tinge in it. No nausea. No vomiting. No diarrhea, leg pain or leg swelling. OBJECTIVE: GENERAL: In no acute distress. VITAL SIGNS: Temperature is 98, heart is 104, respiratory rate is 20, blood pressure 91/62, pulse ox 95% on room air. HEENT: Moist mucous membranes. Crowed airway. NECK: Supple. No JVD. LUNGS: Scattered rhonchi. HEART: S1 and S2. ABDOMEN: Soft, nontender, nondistended, G-tube area looks okay. EXTREMITIES: There is no edema. NEUROLOGIC: Awake, alert, and follows simple command. MEDICATIONS: She is on lorazepam 1 mg every 6 hour p.r.n., albuterol and Atrovent nebulizer every 6 hours, Flagyl 500 mg every 8 hours, folic acid 1 mg daily, Lidoderm patch to affected area, on nystatin 5 mL four times a day, potassium supplement with IV fluid, Protonix 20 mg twice a day, Solu-Medrol 40 mg every 12 hours, Tylenol p.r.n., Ultram 50 mg G-tube three times a day p.r.n. LABORATORY DATA: Shows hemoglobin of 10.3, hematocrit 32.1, WBC 6.4, platelet is 109. Sodium 139, potassium 3.7, chloride 109, bicarbonate 28, BUN 9, creatinine 0.4, glucose 190, calcium is 7.9. AST 26, ALT 21, alk phos is 61, albumin is 2.4. IMPRESSION AND PLAN: Squamous cell carcinoma involving the supraglottal area, oropharyngeal dysphagia with mechanical obstruction requiring gastrostomy tube/jejunostomy tube, malnutrition, history of alcohol abuse, cirrhotic liver, thrombocytopenia, recurrent cough and sputum production, cannot handle oral secretions. We will continue inhaled bronchodilators, steroids, aspiration precaution. We will try to control her oropharyngeal secretion. Keep head at 45 degrees. The patient is strongly recommended do not try to eat anything by mouth. Thank you and we will follow with you. Aden Tilley MD [facility] # [id number]
[2017-11-22] MEDS: Glycopyrrolate 0.2 mg/ml (2ml vial) IV SCH (22:55)
--- NOTE | 2017-11-23 00:21 | PN ---
DATE: 11/22/2017 This is [facility] [place] visit on the medical floor. For Dr. Cleveland. SUBJECTIVE: The patient is a 52-year-old female with known head and neck cancer in the form of squamous cell carcinoma of the supraglottic area, status post jejunostomy tube placement with the patient now being treated on the oncology floor with the patient reporting that her antianxiety medication comes late. She was told she needs to request the medication and it will be given as ordered since admission as the patient is here approximately 20 days. She also has bouts of hypotension for which Dr. Whyte, renal integrity consultant was also recommended for evaluation with the patient's breathing modestly improved with evaluation by Dr. Tilley Pulmonary appreciated as the patient does not have a tracheostomy with concerns for her airway as the patient is undergoing radiation at present. OBJECTIVE/PHYSICAL EXAMINATION: VITAL SIGNS: Temperature 98.8, pulse 104, respirations 20, blood pressure 91/62, pulse ox 95%. HEENT: Tongue moist. NECK: Supple with erythematous changes. HEART: Regular rate. LUNGS: Rare rhonchi. ABDOMEN: Soft, nontender with J-tube viable. EXTREMITIES: No edema. SKIN: Warm and dry. NEUROLOGIC: Awake and alert. LABORATORY DATA: The patient's labs were done, white blood cell count of 6.4, hemoglobin 10.3, hematocrit 32.1, platelet count of 109,000 with a comp metabolic panel showing a chloride of 109, nonfasting glucose of 190, calcium of 7.9, total protein of 5.3. ASSESSMENT: For this patient is that of squamous cell carcinoma of supraglottic area, head and neck cancer, status post jejunostomy tube placement for nutrition, history of EtOH abuse, cirrhosis with question thrombocytopenia, episodes of hypotension with airway compromise to be evaluated as the patient is undergoing radiation. PLAN: For this patient is to continue present medical regimen with episodes of hypotension to be evaluated by Dr. Whyte, renal integrity consultant with fluid management and calorie count pending for nutritional status with Erbitux to be begun as per Dr. Cleveland's protocol tomorrow with radiation also to continue with considerations for tracheostomy should it be indicated if the patient's respiratory status deteriorates. We will continue with present plan with the prognosis for this patient guarded. This is a complex patient with a comprehensive medically necessary and appropriate visit carried out in excess of 20 minutes with nurses also advised of recommendations. Baldo Best MD
--- NOTE | 2017-11-23 01:45 | CON ---
DATE OF CONSULTATION: 11/22/2017 REASON FOR CONSULTATION: Hypotension. HISTORY OF PRESENT ILLNESS: This is a 52-year-old lady, previously unknown to me, the patient was initially admitted on 11/03/2017 with complaints of dysphagia, inability to swallow, also a history of vomiting of blood. At the time of admission, the patient was found to have low platelet count of 42. She was also found to be withdrawing from alcohol. Initial thought process was that she was having hematemesis secondary to variceal bleeding because of history of alcoholic liver cirrhosis. Subsequently, she was found to have a neck mass. CT scan revealed an intraluminal mass of the proximal esophagus traversing the level of the thoracic inlet and there was dilatation of the esophagus around this mass. She underwent biopsy of this mass and was found to have a squamous cell CA. She underwent a PEG placement, plan is for chemotherapy. 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 Consultation is requested for low blood pressure. The patient is currently lying in bed. She reports that she is coughing up some blood. She reports she had oxygen on last night and so her throat is very dry, and so when she coughs, the mucus is blood tinged. She denies any hematemesis. PAST MEDICAL AND SURGICAL HISTORY: Alcohol abuse, alcoholic cirrhosis, malnutrition, squamous cell carcinoma of the supraglottic area of the larynx, PEG placement, malnutrition, thrombocytopenia. FAMILY HISTORY: Throat cancer in mother. SOCIAL HISTORY: Alcohol abuse for 20 years, no smoking, no drug use. ALLERGIES: NO KNOWN DRUG ALLERGIES. CURRENT MEDICATIONS: Ativan, DuoNeb, Flagyl, folic acid, Lidoderm, Flagyl, Protonix, normal saline at 100 mL per hour, Solu-Medrol 40 IV q. 12, Tylenol, tramadol. REVIEW OF SYSTEMS: All systems are reviewed, pertinent positives as mentioned in the history of presenting illness, rest unremarkable. PHYSICAL EXAMINATION: GENERAL: The patient is a thinly built middle-aged lady, lying in bed. VITAL SIGNS: Blood pressure 91/62, heart rate 104, respiratory rate 20, temperature 98.8. HEENT: Normocephalic, atraumatic, positive pallor. NECK: Supple, no JVD. LUNGS: Bilateral equal air entry, bilateral rhonchi, no rales. CARDIAC: S1 and S2, regular rate and rhythm, no murmur, no rub. ABDOMEN: Obese, distended, soft, nontender, bowel sounds present, positive PEG. INTAKE AND OUTPUT: 1550/not charted. LABORATORY DATA: WBC 6.4, hemoglobin 10.3, hematocrit 32, platelets 109. Sodium 139, potassium 3.7, chloride 109, CO2 of 28, BUN 9, creatinine 0.4, glucose 190, calcium 7.9. ASSESSMENT: 1. Hypotension, likely intravascular volume depletion, the patient is tachycardic also. 2. Locally advanced squamous cell carcinoma of the larynx. 3. History of alcohol abuse. 4. Malnutrition. 5. Anemia of chronic disease. 6. Hypokalemia. PLAN: 1. Continue IV fluids. 2. Add 10 mEq KCl to each bag of IV fluids. 3. Continue tube feedings, increase rate as tolerated. Shanae Whyte MD
[2017-11-23] MEDS: Albuterol-Ipratrop 3 mg / 0.5 (3 ml) UD IH SCH ×3 (01:47→13:50)
[2017-11-23] MEDS: Glycopyrrolate 0.2 mg/ml (2ml vial) IV SCH (05:26)
[2017-11-23 07:12] LABS: ALB/GLOB RATIO 0.8 (1.1-1.8); ALBUMIN 2.6 g/dL (3.0-4.8); ALT/SGPT 19 U/L (7-56); AST/SGOT 20 U/L (14-36); BLOOD UREA NITROGEN 11 mg/dL (7-21); GFR NON-AFRICAN AMERICAN > 60
[2017-11-23 07:19] LABS: GRAN # 7.32 (1.4-6.5); GRAN % 93.2 % (50.0-68.0); HEMOGLOBIN 10.1 g/dL (12.0-16.0); LYMPH # 0.3 (1.2-3.4); LYMPH % 3.2 % (22.0-35.0); MEAN CELL VOLUME 99.7 fl (80.0-105.0); MEAN CORPUSCULAR HEMOGLOBIN 31.1 pg (25.0-35.0); MEAN CORPUSCULAR HGB CONC 31.2 g/dl (31.0-37.0); MEAN PLATELET VOLUME 11.4 fl (7.0-11.0); MONO # 0.3 (0.1-0.6); MONO % 3.6 % (1.0-6.0); RBC 3.25 10^6/uL (3.5-6.1); RED CELL DISTRIBUTION WIDTH 15.3 % (11.5-14.5); WHITE BLOOD COUNT 7.9 10^3/ul (4.5-11.0)
[2017-11-23] MEDS: MethylPREDNISolone 40 mg Vial IVP SCH ×2 (09:11→21:13)
[2017-11-23] MEDS: Nystatin 100,000 Units/ml Oral Susp 5 ml UD PO SCH ×4 (09:13→21:13)
[2017-11-23] MEDS: Lidocaine 5% Patch TD SCH (09:13)
--- NOTE | 2017-11-23 10:14 | CP.PCM.PN ---
Subjective - Date & Time of Evaluation Date of Evaluation: 11/23/17 Time of Evaluation: 09:34 - Subjective Subjective: Crow Peacock PGY2 Heme/Onc Progress Note for Dr. Cleveland The patient was seen and examined at bedside. There were no acute overnight events. She was transferred to remote telemetry due to her tachycardia over the weekend. She denies any shortness of breath and only complains of breathing discomfort when she wears the treatment mask. She denies any acute changes, fevers/chills, n/v/d. Objective - Vital Signs/Intake and Output Vital Signs (last 24 hours): Temp Pulse Resp BP Pulse Ox 99.2 F 139 H 20 115/75 98 11/22/17 17:22 11/23/17 08:41 11/23/17 08:41 11/23/17 08:41 11/23/17 08:41 - Medications Medications: Current Medications Acetaminophen (Tylenol 160mg/5ml Oral Soln) 320 mg PO Q4 PRN PRN Reason: Pain, Mild (1-3) Albuterol/Ipratropium (Duoneb 3 Mg/0.5 Mg (3 Ml) Ud) 3 ml IH [id number] [facility] Last Admin: 11/23/17 08:34 Dose: Not Given Folic Acid (Folic Acid) 1 mg JT DAILY [facility] Last Admin: 11/23/17 09:13 Dose: 1 mg Glycopyrrolate (Robinul) 0.2 mg IV Q8 [facility] Last Admin: 11/23/17 05:26 Dose: 0.2 mg Potassium Chloride 10 meq/ (Sodium Chloride) 1,005 mls @ 100 mls/hr IV .Q10H3M [facility] Last Admin: 11/23/17 05:26 Dose: 100 mls/hr Lidocaine (Lidoderm) 1 ea TD DAILY [facility] Last Admin: 11/23/17 09:13 Dose: 1 ea Lorazepam (Ativan) 1 mg IVP Q6H PRN; Protocol PRN Reason: Anxiety Last Admin: 11/23/17 06:28 Dose: 1 mg Methylprednisolone (Solu-Medrol) 40 mg IVP Q12 [facility] Last Admin: 11/23/17 09:11 Dose: 40 mg Metronidazole (Metrogel Cream) 0 gm TOP BID [facility] Last Admin: 11/22/17 18:02 Dose: 1 applic Metronidazole (Flagyl) 500 mg PO Q8 [facility]; Protocol Last Admin: 11/23/17 05:25 Dose: 500 mg Nystatin (Nystop Topical Powder) 0 gm TOP BID [facility] Last Admin: 11/22/17 18:00 Dose: 1 applic Nystatin (Nystatin Oral Susp) 5 ml PO QID [facility] Last Admin: 11/23/17 09:13 Dose: 5 ml Pantoprazole Sodium (Protonix Inj) 20 mg IVP Q12 [facility] Last Admin: 11/23/17 09:12 Dose: 20 mg Racepinephrine (Racepinephrine 2.25% Inhl Soln) 0.5 ml IH Q3 PRN PRN Reason: For Secretions Last Admin: 11/21/17 23:24 Dose: 0.5 ml Scopolamine (Transderm-Scop) 1 patch TD Q3D [facility] Last Admin: 11/22/17 18:02 Dose: 1 patch Tramadol HCl (Ultram) 50 mg GT TID PRN PRN Reason: Pain, moderate (4-7) Last Admin: 11/21/17 09:38 Dose: 50 mg - Labs Labs: 11/23/17 06:30 11/23/17 06:30 PT 11.6 SECONDS (9.4-12.5) 11/11/17 04:30 INR 1.02 11/11/17 04:30 APTT 26.9 Seconds (25.1-36.5) 11/11/17 04:30 - Additional Findings Additional findings: - Constitutional Appears: Non-toxic, No Acute Distress, Cachectic - Head Exam Head Exam: NORMOCEPHALIC - Eye Exam Eye Exam: EOMI, Normal appearance, PERRL - ENT Exam ENT Exam: Mucous Membranes Dry - Neck Exam Neck exam: Positive for: Full Rom. Negative for: Tenderness - Respiratory Exam Respiratory Exam: NORMAL BREATHING PATTERN. absent: Rales, Rhonchi, Wheezes - Cardiovascular Exam Cardiovascular Exam: Tachycardia, +S1, +S2. absent: Systolic Murmur - GI/Abdominal Exam GI & Abdominal Exam: Soft. 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 Intraluminal esophageal lesion was noted on imaging and a large friable hypopharyngeal mass completely obstructing the airway was seen on upper e ndoscopy and laryngoscopy. Given her cirrhosis, the patient's platelet level is low likely due to sequestration as well as bone marrow suppression and should be supplemented with FFP and plts prior to any procedure. Patient underwent J-tube placement for parenteral nutrition and supplementation. 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 Patient has been started on XRT and needs to receive 5-7 XRT before discharge (she's currently scheduled for 35 sessions total to end 01/05, daily Thursday-Thursday; she also needs to be optimized nutritionally. The patient has shown very poor outpatient follow-up and is at risk for neglecting her care if discharged prematurely. She also needs to monitored further as she receives XRT due to the acute side-effects, especially in a malignancy such as hers that could compromise her airway. Plan: - Radiation Oncology, Dr. Carrero, for XRT (Session #6 today) - possible targeted therapy, probably with cetuximab - GI reconsulted regarding recs for rx w/ cetuximab or other targeted chemorx given hx of cirrhosis - tube feedings per surgery team for optimal nutritional status - HPV titers requested from pathologist - cont hydration and tube feedings to optimize patient - Further recs per Dr. Cleveland Case was reviewed and discussed with attending, Dr. Cristofer Peacock PGY2
[2017-11-23 12:14] LABS: URINE APPEARANCE SLIGHT-CLOUDY (CLEAR); URINE BILIRUBIN NEGATIVE (NEGATIVE); URINE BLOOD TRACE-INTACT (NEGATIVE); URINE COLOR LIGHT YELLOW (YELLOW); URINE GLUCOSE (UA) NEGATIVE (NEGATIVE); URINE LEUKOCYTE ESTERASE LARGE Leu/uL (NEGATIVE); URINE PROTEIN TRACE mg/dL (<30 mg/dL); URINE UROBILINOGEN 0.2 E.U./dL (<1 E.U./dL)
[2017-11-23 12:22] LABS: URINE BACTERIA MANY (NEG); URINE WBC 25 - 30 /hpf (0-6)
[2017-11-23 12:23] LABS: URINE AMORPHOUS SEDIMENT FEW
--- NOTE | 2017-11-23 12:59 | CP.PCM.PN ---
Subjective - Date & Time of Evaluation Date of Evaluation: 11/23/17 Time of Evaluation: 12:00 - Subjective Subjective: Alert, oriented. Complaining of urinary frequency and burning. Denies fever, chills Objective - Vital Signs/Intake and Output Vital Signs (last 24 hours): Temp Pulse Resp BP Pulse Ox 99.2 F 139 H 20 115/75 98 11/22/17 17:22 11/23/17 08:41 11/23/17 08:41 11/23/17 08:41 11/23/17 08:41 - Medications Medications: Current Medications Acetaminophen (Tylenol 160mg/5ml Oral Soln) 320 mg PO Q4 PRN PRN Reason: Pain, Mild (1-3) Albuterol/Ipratropium (Duoneb 3 Mg/0.5 Mg (3 Ml) Ud) 3 ml IH [id number] [facility] Last Admin: 11/23/17 08:34 Dose: Not Given Folic Acid (Folic Acid) 1 mg JT DAILY [facility] Last Admin: 11/23/17 09:13 Dose: 1 mg Glycopyrrolate (Robinul) 0.2 mg IV Q8 [facility] Last Admin: 11/23/17 05:26 Dose: 0.2 mg Potassium Chloride 10 meq/ (Sodium Chloride) 1,005 mls @ 100 mls/hr IV .Q10H3M [facility] Last Admin: 11/23/17 05:26 Dose: 100 mls/hr Lidocaine (Lidoderm) 1 ea TD DAILY [facility] Last Admin: 11/23/17 09:13 Dose: 1 ea Lorazepam (Ativan) 1 mg IVP Q6H PRN; Protocol PRN Reason: Anxiety Last Admin: 11/23/17 06:28 Dose: 1 mg Methylprednisolone (Solu-Medrol) 40 mg IVP Q12 [facility] Last Admin: 11/23/17 09:11 Dose: 40 mg Metronidazole (Metrogel Cream) 0 gm TOP BID [facility] Last Admin: 11/22/17 18:02 Dose: 1 applic Metronidazole (Flagyl) 500 mg PO Q8 [facility]; Protocol Last Admin: 11/23/17 05:25 Dose: 500 mg Nystatin (Nystop Topical Powder) 0 gm TOP BID [facility] Last Admin: 11/22/17 18:00 Dose: 1 applic Nystatin (Nystatin Oral Susp) 5 ml PO QID [facility] Last Admin: 11/23/17 09:13 Dose: 5 ml Pantoprazole Sodium (Protonix Inj) 20 mg IVP Q12 [facility] Last Admin: 11/23/17 09:12 Dose: 20 mg Racepinephrine (Racepinephrine 2.25% Inhl Soln) 0.5 ml IH Q3 PRN PRN Reason: For Secretions Last Admin: 11/21/17 23:24 Dose: 0.5 ml Scopolamine (Transderm-Scop) 1 patch TD Q3D [facility] Last Admin: 11/22/17 18:02 Dose: 1 patch Tramadol HCl (Ultram) 50 mg GT TID PRN PRN Reason: Pain, moderate (4-7) Last Admin: 11/21/17 09:38 Dose: 50 mg - Labs Labs: 11/23/17 06:30 11/23/17 06:30 PT 11.6 SECONDS (9.4-12.5) 11/11/17 04:30 INR 1.02 11/11/17 04:30 APTT 26.9 Seconds (25.1-36.5) 11/11/17 04:30 - Constitutional Appears: Cachectic, Chronically Ill - Eye Exam Eye Exam: Normal appearance, PERRL - ENT Exam ENT Exam: Mucous Membranes Moist - Respiratory Exam Respiratory Exam: Clear to Ausculation Bilateral, NORMAL BREATHING PATTERN - Cardiovascular Exam Cardiovascular Exam: REGULAR RHYTHM, +S1, +S2 - GI/Abdominal Exam GI & Abdominal Exam: Soft, Normal Bowel Sounds Additional comments: J tube patient, feedings in progress - Extremities Exam Extremities Exam: Full ROM, Normal Capillary Refill - Back Exam Back Exam: NORMAL INSPECTION - Neurological Exam Neurological Exam: Alert, Oriented x3 - Skin Skin Exam: Dry, Pallor Assessment and Plan - Assessment and Plan (Free Text) Assessment: 52 magdaleno old female with history of alcoholism, mass of pharynx, who was admitted with hematemsis which has since resolved,anemia, hypokalemia,anorexia, cachexia and throat pain. 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 Currently receiving XRT therapy. The patient is alert, oriented. More talkative today. States she is forgetting things, does not remember her brother visiting over the weekend. Also complaining of dysuria and frequency. She states she is tolerating radiation therapy well, and intends to continue treatment. Patient also interested in chemotherapy but does not remember when she is to start treatment. I asked if her brother is able to support her once she returns home. She is unsure, states he works a lot to of hours. I offered to meet with her and her brother to discuss goals of care. Explained that POA intent should be discussed and documents completed during that meeting. Patient states she will let me know when her brother is available. Time spent in goals of care discussion with lynne, 20 minutes r Plan: Squamous cell carcinoma of pharynx: Dr Carrero and Dr Cleveland following, Continue XRT, Cetuximab therapy when cleared by Dr Cleveland Anorexia/cachexia: NPO, continue J tube feedings as ordered. Dysuria/frequency:[facility] pending. Pulmonary: Dr Treva lan Keep NPO,aspiration precautions, bronchodilators and steroids Golas of care and advance care planning
[2017-11-23] MEDS ORDERED: Sodium Chloride 0.9% 500 ML IV STA (15:18)
--- NOTE | 2017-11-23 15:18 | CARD ---
APPROVED REPORT Date of service: 11/23/2017 EKG Measurement Heart [id number] <Conclusion> Sinus tachycardia Low voltage QRS ST & T wave abnormality, consider inferolateral ischemia Abnormal ECG
[2017-11-23] MEDS: Piperacillin/Tazobact 3.375 gm 100 ML IVPB SCH ×2 (15:34→21:18)
--- NOTE | 2017-11-23 19:23 | CP.PCM.PN ---
<Torito Ferrer - Last Filed: 11/23/17 19:36> Subjective - Date & Time of Evaluation Date of Evaluation: 11/23/17 Time of Evaluation: 19:21 - Subjective Subjective: Pt seen and examined. Pt denies chest pain, SOB Objective - Vital Signs/Intake and Output Vital Signs (last 24 hours): Temp Pulse Resp BP Pulse Ox 99.8 F H 135 H 20 93/58 L 95 11/23/17 16:40 11/23/17 18:00 11/23/17 16:40 11/23/17 16:40 11/23/17 16:40 - Medications Medications: Current Medications Acetaminophen (Tylenol 160mg/5ml Oral Soln) 320 mg PO Q4 PRN PRN Reason: Pain, Mild (1-3) Folic Acid (Folic Acid) 1 mg JT DAILY [facility] Last Admin: 11/23/17 09:13 Dose: 1 mg Glycopyrrolate (Robinul) 0.2 mg IV Q8 [facility] Last Admin: 11/23/17 05:26 Dose: 0.2 mg Potassium Chloride 10 meq/ (Sodium Chloride) 1,005 mls @ 100 mls/hr IV .Q10H3M [facility] Last Admin: 11/23/17 05:26 Dose: 100 mls/hr Piperacillin Sod/Tazobactam Sod (Zosyn 3.375 In Ns 100ml) 100 mls @ 25 mls/hr IVPB Q8 [facility]; Protocol Stop: 11/24/17 01:59 Last Admin: 11/23/17 15:34 Dose: 25 mls/hr Ipratropium [place] (Atrovent) 0.5 mg IH [id number] Lidocaine (Lidoderm) 1 ea TD DAILY [facility] Last Admin: 11/23/17 09:13 Dose: 1 ea Lorazepam (Ativan) 1 mg IVP Q6H PRN; Protocol PRN Reason: Anxiety Last Admin: 11/23/17 14:48 Dose: 1 mg Methylprednisolone (Solu-Medrol) 40 mg IVP Q12 [facility] Last Admin: 11/23/17 09:11 Dose: 40 mg Metronidazole (Metrogel Cream) 0 gm TOP BID [facility] Last Admin: 11/22/17 18:02 Dose: 1 applic Metronidazole (Flagyl) 500 mg PO Q8 [facility]; Protocol Last Admin: 11/23/17 15:04 Dose: 500 mg Nystatin (Nystop Topical Powder) 0 gm TOP BID [facility] Last Admin: 11/22/17 18:00 Dose: 1 applic Nystatin (Nystatin Oral Susp) 5 ml PO QID [facility] Last Admin: 11/23/17 17:21 Dose: 5 ml Pantoprazole Sodium (Protonix Inj) 20 mg IVP Q12 [facility] Last Admin: 11/23/17 09:12 Dose: 20 mg Scopolamine (Transderm-Scop) 1 patch TD Q3D [facility] Last Admin: 11/22/17 18:02 Dose: 1 patch Tramadol HCl (Ultram) 50 mg GT TID PRN PRN Reason: Pain, moderate (4-7) Last Admin: 11/23/17 17:35 Dose: 50 mg - Labs Labs: 11/23/17 06:30 11/23/17 06:30 PT 11.6 SECONDS (9.4-12.5) 11/11/17 04:30 INR 1.02 11/11/17 04:30 APTT 26.9 Seconds (25.1-36.5) 11/11/17 04:30 - Constitutional Appears: Non-toxic, No Acute Distress - Head Exam Head Exam: ATRAUMATIC, NORMAL INSPECTION, NORMOCEPHALIC - Eye Exam Eye Exam: EOMI - ENT Exam ENT Exam: Mucous Membranes Moist - Neck Exam Neck Exam: Full ROM - Respiratory Exam Respiratory Exam: Clear to Ausculation Bilateral, NORMAL BREATHING PATTERN. absent: Accessory Muscle Use, Wheezes, Respiratory Distress - Cardiovascular Exam Cardiovascular Exam: RRR, +S1, +S2. absent: Diastolic murmur, Murmur - GI/Abdominal Exam GI & Abdominal Exam: Soft, Normal Bowel Sounds. absent: Distended, Tenderness Additional comments: j tube in place, mild tenderness around site - Extremities Exam Extremities Exam: Full ROM. absent: Calf Tenderness, Pedal Edema, Tenderness - Neurological Exam Neurological Exam: Alert, Awake, Oriented x3 - Psychiatric Exam Psychiatric exam: Normal Affect, Normal Mood - Skin Skin Exam: Dry, Intact, Warm Assessment and Plan - Assessment and Plan (Free Text) Assessment: Pt is a 52 yo female with a PMH of alcohol abuse and cirrhosis, who was admitted for evaluation and treatment of hematemesis. 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 Patient is kept NPO and is s/p jejunostomy tube insertion. Plan: Hematemesis, Dysphagia, secondary to squamous cell carcinoma - EGD (11/04): large friable, fungating, ulcerative mass found in hypopharynx, completely obstructing airway - soft tissue neck CT: two apparent masses including the glottis, 2x1.9 cm and upper esophagus/pharyngo esophageal junction 3.3x2.4 - Laryngoscopy (11/11): large supraglottic pharyngeal mass extending to hypoglossal region - continue readiation treatments - pt to start first round of chemo (cituximab) today - racepinephrine - continue tramadol for pain - home health, solcial work consulted - hem/onc, Dr. Weller following - radiation oncology, Dr. Carrero following - Pulm, Dr. Tilley following, pt on inhaled bronchodilator for upper airway secretions, metronidazole, and methylprednisolone - ENT, Dr. Ren consulted - Surgery consulted Hypotension - systolic in upper 80s-90s. Pt's baseline is in 90s. - given 250 NS bolus yesterday, BP 115/75 today - pt on remote tele - if persistent hypotension will start sepsis workup, given that patient is also tachycardic and has mild confusion - Nephro, Dr. Whyte consulted, appreciate recs Liver cirrhosis - CT abdomne: cirrhotic liver, no acute findings - pt. mildly confused today, will order ammonia level - GI, Dr. Herrera consulted for safety of Cetuximab in cirrhotic patient, no literature found on influence of Cetuximab on liver. Pt will start cituximab today, will monitor. Thrombocytopenia, resolved - plt 109 yesterday, 121 today - Hem/onc following Alcohol Abuse, Anxiety - continue Ativan 1 q6 PRN anxiety - aspiration, fall, and seizure precaustions - advised on cessation Ppx - SCD - protonix Pt seen, examined, assessment and plan discussed with Dr Rob Ferrer PGY1 <Aden Rivas - Last Filed: 11/25/17 15:10> Objective - Vital Signs/Intake and Output Vital Signs (last 24 hours): Temp Pulse Resp BP Pulse Ox 98.4 F 99 H 20 100/67 97 11/25/17 06:00 11/25/17 06:00 11/25/17 06:00 11/25/17 06:00 11/25/17 06:00 Intake and Output: 11/25/17 11/25/17 06:59 18:59 Intake Total 1800 Balance 1800 - Medications Medications: Current Medications Acetaminophen (Tylenol 160mg/5ml Oral Soln) 320 mg PO Q4 PRN PRN Reason: Pain, Mild (1-3) Last Admin: 11/24/17 17:42 Dose: 320 mg Folic Acid (Folic Acid) 1 mg JT DAILY [facility] Last Admin: 11/25/17 10:01 Dose: 1 mg Potassium Chloride 10 meq/ (Sodium Chloride) 1,005 mls @ 100 mls/hr IV .Q10H3M [facility] Last Admin: 11/24/17 23:56 Dose: 100 mls/hr Ipratropium [place] (Atrovent) 0.5 mg IH [id number] [facility] Last Admin: 11/25/17 10:54 Dose: 0.5 mg Lidocaine (Lidoderm) 1 ea TD DAILY [facility] Last Admin: 11/25/17 10:01 Dose: 1 ea Lorazepam (Ativan) 1 mg IVP Q6H PRN; Protocol PRN Reason: Anxiety Last Admin: 11/24/17 12:04 Dose: 1 mg Metronidazole (Metrogel Cream) 0 gm TOP BID [facility] Last Admin: 11/25/17 10:03 Dose: 1 applic Nystatin (Nystop Topical Powder) 0 gm TOP BID [facility] Last Admin: 11/25/17 10:02 Dose: Not Given Nystatin (Nystatin Oral Susp) 5 ml PO QID [facility] Last Admin: 11/25/17 14:58 Dose: 5 ml Pantoprazole Sodium (Protonix Inj) 20 mg IVP Q12 [facility] Last Admin: 11/25/17 10:02 Dose: 20 mg Prednisone (Prednisone Tab) 20 mg PO DAILY [facility] Scopolamine (Transderm-Scop) 1 patch TD Q3D [facility] Last Admin: 11/22/17 18:02 Dose: 1 patch Tramadol HCl (Ultram) 50 mg GT TID PRN PRN Reason: Pain, moderate (4-7) Last Admin: 11/23/17 17:35 Dose: 50 mg - Labs Labs: 11/25/17 06:30 11/25/17 06:30 PT 11.6 SECONDS (9.4-12.5) 11/11/17 04:30 INR 1.02 11/11/17 04:30 APTT 26.9 Seconds (25.1-36.5) 11/11/17 04:30 Attending/Attestation - Attestation I have personally seen and examined this patient.: Yes I have fully participated in the care of the patient.: Yes I have reviewed all pertinent clinical information, including history, physical exam and plan: Yes Notes (Text): 11/25/17 15:06 Medical record note made by the resident after discussion with my direction and input after the patient was personally seen and examined by me. I have reviewed the chart and agree that the record accurately reflects by personal performance of the history, physical exam, data review, and medical decision-making, in the course for the patient. I have also personally directed the plan of care. - 52 year old female with past medical history of alcohol abuse and cirrhosis who presented with hematemesis. She was found to have a large friable mass in the hypopharynx. Biopsy showed squamous cell carcinoma. She is being followed by GI, hematology/oncology and radiation/oncology. She is receiving radiation treatment. She is s/p jejunostomy tube and tolerating feeds. She was found to have Tachycardia and hypotension today.EKG showed Sinus Tachycardia with T wave changes .UA is suggestive of UTI.Venous doppler is negative for DVT. Sepsis due to UTI, we will start on IV zosyn and will folow up cultures. Prognosis is guarded.
[2017-11-23] MEDS: Ipratropium 0.02% Inhal Soln (0.5 mg/2.5 ml) UD IH SCH (20:33)
[2017-11-23] MEDS ORDERED: Piperacillin/Tazobact 3.375 gm 100 ML IVPB SCH (22:00)
--- NOTE | 2017-11-23 23:36 | PN ---
DATE: 11/23/2017 PULMONARY PROGRESS NOTE REFERRING PHYSICIAN: Dr. Evans. SUBJECTIVE: Patient is lying in the bed, sleepy, arousable. Night was unremarkable. Feels better, decreased pulmonary secretion. No more significant hemoptysis. No chest pain. No nausea, vomiting, or diarrhea. No leg pain or leg swelling. OBJECTIVE: GENERAL: In acute distress. VITAL SIGNS: Temperature 89.8, heart rate 104, respiratory rate 20, blood pressure 93/58, pulse oximetry 95% on nasal cannula. HEENT: Moist mucous membranes. Crowded airway. NECK: Supple. No JVD. LUNGS: Better air flow with few rhonchi. HEART: S1 and S2. ABDOMEN: Soft, nontender. No organomegaly. EXTREMITIES: No edema. NEUROLOGIC: Awake, alert, follows simple commands. MEDICATIONS: She is on lorazepam 1 mg every 6 hour p.r.n., Atrovent inhaled every 4 hours. Flagyl 500 mg every 8 hours. Folic acid 1 mg daily, lidocaine patch affected area daily, nystatin oral as instructed, IV fluid with potassium 100 mL per hour, Protonix 20 mg every 12 hours, glycopyrrolate 0.2 mg IV every 8 hour, Solu-Medrol 40 mg every 12 hours, scopolamine patch every 3 days, Tylenol p.r.n., Ultram 50 mg every 8 hour p.r.n., Zosyn 0.375 g every 8 hours. LABORATORY DATA: Hemoglobin 10.1, hematocrit 32.4, WBC 7.9, platelet count is 121. Sodium 143, potassium 3.9, chloride 111, bicarbonate 27, BUN 11, creatinine 0.4, glucose 167, calcium 8. AST 20, ALT 19, alkaline phosphatase 55. Troponin less than 0.01. Albumin 2.6. TSH of 0.55. 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 Pulmonary point of view little improved with secretion. Continue glycopyrrolate, inhaled bronchodilator, antibiotics, aspiration precaution. Thank you and we will follow with you. Aden Tilley MD
[2017-11-24] MEDS: Ipratropium 0.02% Inhal Soln (0.5 mg/2.5 ml) UD IH SCH ×7 (00:16→23:37)
[2017-11-24] MEDS: Glycopyrrolate 0.2 mg/ml (2ml vial) IV SCH ×3 (06:23→23:57)
[2017-11-24 08:41] LABS: GRAN # 6.52 (1.4-6.5); GRAN % 89.7 % (50.0-68.0); LYMPH # 0.5 (1.2-3.4); LYMPH % 6.7 % (22.0-35.0); MEAN CELL VOLUME 100.3 fl (80.0-105.0); MEAN CORPUSCULAR HEMOGLOBIN 31.6 pg (25.0-35.0); MEAN CORPUSCULAR HGB CONC 31.5 g/dl (31.0-37.0); MEAN PLATELET VOLUME 11.3 fl (7.0-11.0); MONO # 0.3 (0.1-0.6); MONO % 3.6 % (1.0-6.0); RBC 3.16 10^6/uL (3.5-6.1); RED CELL DISTRIBUTION WIDTH 15.2 % (11.5-14.5); WHITE BLOOD COUNT 7.3 10^3/ul (4.5-11.0)
[2017-11-24 08:52] LABS: ALB/GLOB RATIO 0.9 (1.1-1.8); ALBUMIN 2.6 g/dL (3.0-4.8); ALT/SGPT 25 U/L (7-56); AST/SGOT 22 U/L (14-36); BLOOD UREA NITROGEN 10 mg/dL (7-21); CALCIUM 8.1 mg/dL (8.4-10.5); GFR NON-AFRICAN AMERICAN > 60
--- NOTE | 2017-11-24 08:59 | PN ---
DATE: 11/23/2017 SUBJECTIVE: The patient is seen lying in bed. The patient is still coughing up blood-tinged sputum. She complains of some pain in her abdomen. She denies any chest tightness. PHYSICAL EXAMINATION: GENERAL: Cachectic, middle-aged lady, lying in bed. VITAL SIGNS: Blood pressure 115/75, heart rate , respiratory rate 20, temperature 99.2. HEENT: Normocephalic, atraumatic, positive pallor. NECK: Supple, no JVD. LUNGS: Bilateral poor air entry. Decreased breath sound at bases. CARDIAC: S1 and S2, regular rate and rhythm, no murmur, no rub. ABDOMEN: Distended, soft, positive PEG placement. EXTREMITIES: No lower extremity edema. INTAKE AND OUTPUT: 2200/not charted. LABORATORY DATA: WBC 7.9, hemoglobin 10, hematocrit 32, platelets 121. Sodium 143, potassium 3.9, chloride 111, CO2 of 27, BUN 11, creatinine 0.4, glucose 167, calcium 8, albumin 3.6, globulin 3.1. Urinalysis: Slight yellow, cloudy, pH 8, specific gravity 1.01, protein trace, glucose negative, blood trace intact, positive, leukocyte esterase positive. CURRENT MEDICATIONS: Ativan, Atrovent, Flagyl, folic acid, normal saline with 10 mEq of KCl at 100, Protonix, Solu-Medrol. ASSESSMENT: 1. Hypotension, blood pressure is much improved with IV fluid resuscitation. 2. Tachycardia/fever/pyuria. 3. Squamous cell cancer of the larynx with local advancement. 4. History of alcohol abuse/alcoholic liver disease. 5. Anemia of chronic disease. 6. Severe hypoalbuminemia. PLAN: 1. Continue IV fluids with potassium supplementation. 2. Follow up urine cultures. 3. Start empiric antibiotics. 4. Start Pro-Stat via tube feeds twice a day. Shanae Whyte MD
[2017-11-24] MEDS: Nystatin 100,000 Units/ml Oral Susp 5 ml UD PO SCH ×4 (09:17→23:55)
[2017-11-24] MEDS: MetroNIDAZOLE 0.75% Cream(45 gm) TOP SCH ×2 (09:17→17:01)
[2017-11-24] MEDS: MethylPREDNISolone 40 mg Vial IVP SCH ×2 (09:17→23:57)
[2017-11-24] MEDS: Lidocaine 5% Patch TD SCH (09:17)
[2017-11-24] MEDS ORDERED: Piperacillin/Tazobact 3.375 gm 100 ML IVPB SCH ×3 (09:30→18:00)
[2017-11-24] MEDS: Nystatin 100,000 Units/gm Topical Pow(15 gm) TOP SCH ×2 (10:58→17:02)
--- NOTE | 2017-11-24 11:12 | US ---
HISTORY: Leg pain and swelling. Evaluate for DVT PHYSICIAN(S): Andres Lagos MD. TECHNIQUE: Duplex sonography and color-flow Doppler with graded compression were used to evaluate the deep venous systems of both lower extremities. FINDINGS: The visualized deep venous systems of both lower extremities are sonographically normal and compressible. Normal wave forms and augmentation are seen. There is no sonographic evidence for deep venous thrombosis in the visualized segments of both lower extremities. IMPRESSION: No sonographic evidence for deep venous thrombosis in the visualized segments of both lower extremities.
--- NOTE | 2017-11-24 12:52 | CP.PCM.PN ---
Subjective - Date & Time of Evaluation Date of Evaluation: 11/24/17 Time of Evaluation: 08:46 - Subjective Subjective: Crow Peacock PGY2 Heme/Onc Progress Note for Dr. Cleveland The patient was seen and examined at bedside. There were no acute overnight events. The patient offers no complaints. Dr. Cleveland had a discussion with her regarding chemotherapy and discussed the benefits, side-effects and alternatives and she is agreeable to cetuximab. Dr. Cleveland will discuss with her brother regarding her care, especially follow-up as outpatient. We recommended to medical team that the patient's feeds be switched to 8pm-8am (80% of total feeds) and then bolus the other 20% throughout the day so she has more freedom to go about her day. Objective - Vital Signs/Intake and Output Vital Signs (last 24 hours): Temp Pulse Resp BP Pulse Ox 97.3 F L 105 H 18 86/54 L 98 11/24/17 08:08 11/24/17 10:00 11/24/17 08:08 11/24/17 08:08 11/24/17 08:08 - Medications Medications: Current Medications Acetaminophen (Tylenol 160mg/5ml Oral Soln) 320 mg PO Q4 PRN PRN Reason: Pain, Mild (1-3) Folic Acid (Folic Acid) 1 mg JT DAILY [facility] Last Admin: 11/24/17 09:17 Dose: 1 mg Glycopyrrolate (Robinul) 0.2 mg IV Q8 [facility] Last Admin: 11/24/17 06:23 Dose: 0.2 mg Potassium Chloride 10 meq/ (Sodium Chloride) 1,005 mls @ 100 mls/hr IV .Q10H3M [facility] Last Admin: 11/24/17 02:00 Dose: 100 mls/hr Piperacillin Sod/Tazobactam Sod (Zosyn 3.375 In Ns 100ml) 100 mls @ 25 mls/hr IVPB Q8H [facility]; Protocol Stop: 11/24/17 21:59 Ipratropium [place] (Atrovent) 0.5 mg IH [id number] [facility] Last Admin: 11/24/17 11:09 Dose: 0.5 mg Lidocaine (Lidoderm) 1 ea TD DAILY [facility] Last Admin: 11/24/17 09:17 Dose: 1 ea Lorazepam (Ativan) 1 mg IVP Q6H PRN; Protocol PRN Reason: Anxiety Last Admin: 11/24/17 12:04 Dose: 1 mg Methylprednisolone (Solu-Medrol) 40 mg IVP Q12 [facility] Last Admin: 11/24/17 09:17 Dose: 40 mg Metronidazole (Metrogel Cream) 0 gm TOP BID [facility] Last Admin: 11/24/17 09:17 Dose: 1 applic Nystatin (Nystop Topical Powder) 0 gm TOP BID [facility] Last Admin: 11/24/17 10:58 Dose: Not Given Nystatin (Nystatin Oral Susp) 5 ml PO QID [facility] Last Admin: 11/24/17 09:17 Dose: 5 ml Pantoprazole Sodium (Protonix Inj) 20 mg IVP Q12 [facility] Last Admin: 11/24/17 09:17 Dose: 20 mg Scopolamine (Transderm-Scop) 1 patch TD Q3D [facility] Last Admin: 11/22/17 18:02 Dose: 1 patch Tramadol HCl (Ultram) 50 mg GT TID PRN PRN Reason: Pain, moderate (4-7) Last Admin: 11/23/17 17:35 Dose: 50 mg - Labs Labs: 11/24/17 08:00 11/24/17 08:00 PT 11.6 SECONDS (9.4-12.5) 11/11/17 04:30 INR 1.02 11/11/17 04:30 APTT 26.9 Seconds (25.1-36.5) 11/11/17 04:30 - Additional Findings Additional findings: - Constitutional Appears: Non-toxic, No Acute Distress, Cachectic - Head Exam Head Exam: NORMOCEPHALIC - Eye Exam Eye Exam: EOMI, Normal appearance, PERRL - ENT Exam ENT Exam: Mucous Membranes Dry - Neck Exam Neck exam: Positive for: Full Rom. Negative for: Tenderness - Respiratory Exam Respiratory Exam: NORMAL BREATHING PATTERN. absent: Rales, Rhonchi, Wheezes - Cardiovascular Exam Cardiovascular Exam: Tachycardia, +S1, +S2. absent: Systolic Murmur - GI/Abdominal Exam GI & Abdominal Exam: Soft. 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 Intraluminal esophageal lesion was noted on imaging and a large friable hypopharyngeal mass completely obstructing the airway was seen on upper endoscopy and laryngoscopy. Given her cirrhosis, the patient's platelet level is low likely due to sequestration as well as bone marrow suppression and should be supplemented with FFP and plts prior to any procedure. Patient underwent J- tube placement for parenteral nutrition and supplementation. 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 Patient has been started on XRT and needs to receive 5-7 XRT before discharge (she's currently scheduled for 35 sessions total to end 01/05, daily Thursday-Thursday; she also needs to be optimized nutritionally. The patient has shown very poor outpatient follow-up and is at risk for neglecting her care if discharged prematurely. She also needs to monitored further as she receives XRT due to the acute side-effects, especially in a malignancy such as hers that could compromise her airway. We recommend having 80% of her feeds at night and the other 20% bolus in the day so she has more freedom to move around. She will be consented for cetuximab. Plan: - Radiation Oncology, Dr. Carrero, for XRT (started 11/16, M-F daily), delayed today due to technical difficulties - Targeted therapy with cetuximab, patiented needs to be consented (GI agrees w/ decision given hx of cirrhosis) - tube feedings for optimal nutrition - HPV titers requested from pathologist - cont hydration and tube feedings to optimize patient - Further recs per Dr. Cleveland Case was reviewed and discussed with attending, Dr. Cristofer Peacock PGY2
--- NOTE | 2017-11-24 15:43 | CARD ---
APPROVED REPORT Date of service: 11/24/2017 EKG Measurement Heart [id number] <Conclusion> Normal sinus rhythm Low voltage QRS T wave abnormality, consider inferior ischemia Abnormal ECG
--- NOTE | 2017-11-24 15:45 | CP.PCM.PN ---
<Torito Ferrer - Last Filed: 11/24/17 15:47> Subjective - Date & Time of Evaluation Date of Evaluation: 11/24/17 Time of Evaluation: 15:43 - Subjective Subjective: Pt seen and examined. She had refused to consent to cituximab tx yesterday, but states that she is agreeable today and will sign the consent form. She continues to have dysuria and frequency, stating that she needs to urinate up to 30 times a day. Objective - Vital Signs/Intake and Output Vital Signs (last 24 hours): Temp Pulse Resp BP Pulse Ox 97.3 F L 129 H 18 86/54 L 98 11/24/17 08:08 11/24/17 14:00 11/24/17 08:08 11/24/17 08:08 11/24/17 08:08 - Medications Medications: Current Medications Acetaminophen (Tylenol 160mg/5ml Oral Soln) 320 mg PO Q4 PRN PRN Reason: Pain, Mild (1-3) Folic Acid (Folic Acid) 1 mg JT DAILY [facility] Last Admin: 11/24/17 09:17 Dose: 1 mg Glycopyrrolate (Robinul) 0.2 mg IV Q8 [facility] Last Admin: 11/24/17 14:08 Dose: 0.2 mg Potassium Chloride 10 meq/ (Sodium Chloride) 1,005 mls @ 100 mls/hr IV .Q10H3M [facility] Last Admin: 11/24/17 02:00 Dose: 100 mls/hr Piperacillin Sod/Tazobactam Sod (Zosyn 3.375 In Ns 100ml) 100 mls @ 25 mls/hr IVPB Q8H [facility]; Protocol Stop: 11/24/17 21:59 Ipratropium [place] (Atrovent) 0.5 mg IH [id number] [facility] Last Admin: 11/24/17 11:09 Dose: 0.5 mg Lidocaine (Lidoderm) 1 ea TD DAILY [facility] Last Admin: 11/24/17 09:17 Dose: 1 ea Lorazepam (Ativan) 1 mg IVP Q6H PRN; Protocol PRN Reason: Anxiety Last Admin: 11/24/17 12:04 Dose: 1 mg Methylprednisolone (Solu-Medrol) 40 mg IVP Q12 [facility] Last Admin: 11/24/17 09:17 Dose: 40 mg Metronidazole (Metrogel Cream) 0 gm TOP BID [facility] Last Admin: 11/24/17 09:17 Dose: 1 applic Nystatin (Nystop Topical Powder) 0 gm TOP BID [facility] Last Admin: 11/24/17 10:58 Dose: Not Given Nystatin (Nystatin Oral Susp) 5 ml PO QID [facility] Last Admin: 11/24/17 13:08 Dose: Not Given Pantoprazole Sodium (Protonix Inj) 20 mg IVP Q12 [facility] Last Admin: 11/24/17 09:17 Dose: 20 mg Scopolamine (Transderm-Scop) 1 patch TD Q3D [facility] Last Admin: 11/22/17 18:02 Dose: 1 patch Tramadol HCl (Ultram) 50 mg GT TID PRN PRN Reason: Pain, moderate (4-7) Last Admin: 11/23/17 17:35 Dose: 50 mg - Labs Labs: 11/24/17 08:00 11/24/17 08:00 PT 11.6 SECONDS (9.4-12.5) 11/11/17 04:30 INR 1.02 11/11/17 04:30 APTT 26.9 Seconds (25.1-36.5) 11/11/17 04:30 - Constitutional Appears: Well, No Acute Distress - Head Exam Head Exam: ATRAUMATIC, NORMAL INSPECTION, NORMOCEPHALIC - Eye Exam Eye Exam: EOMI - ENT Exam ENT Exam: Mucous Membranes Moist - Neck Exam Neck Exam: Full ROM - Respiratory Exam Respiratory Exam: Clear to Ausculation Bilateral, NORMAL BREATHING PATTERN. absent: Accessory Muscle Use, Wheezes, Respiratory Distress - Cardiovascular Exam Cardiovascular Exam: RRR, +S1, +S2. absent: Diastolic murmur - GI/Abdominal Exam GI & Abdominal Exam: Soft, Normal Bowel Sounds Additional comments: j tube in place, mildly tender - Extremities Exam Extremities Exam: Full ROM - Neurological Exam Neurological Exam: Alert, Awake, Oriented x3 - Psychiatric Exam Psychiatric exam: Normal Affect, Normal Mood - Skin Skin Exam: Dry, Intact, Warm Assessment and Plan - Assessment and Plan (Free Text) Assessment: Pt is a 52 yo female with a PMH of alcohol abuse and cirrhosis, who was admitted for evaluation and treatment of hematemesis. 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 Patient is kept NPO and is s/p jejunostomy tube insertion. Plan: UTI - pt complaining of increased urgency, frequency, and dysuria - pt tachycardic yesterday HR 135 --> 105 today, BP 86/54, - UA positive for nitrites, leukocyte esterase, protein and blood - blood and urine cultures pending - continue zosyn 3.375gm IVPB q8 Hematemesis, Dysphagia, secondary to squamous cell carcinoma - Bolus tube feeds at night for nutrition optimization, hem/onc reccomends 20% boluses during the day, 80% infusion at night. - Lower extremity U/S negative for DVT - continue tramadol for pain - Pt has been consented for cetuximab treatment, will begin tx per hem/onc, Dr. Weller - radiation oncology, Dr. Carrero following; Pt started radiation therapy on 11/16 (M-F daily), Received 7 sessions to date. XRT today was held due to technical difficulties today. She will need 35 sessions total, to end on 01/05. - Pulm, Dr. Tilley following, pt on aspiration precautions, inhaled bronch odilator for upper airway secretions, metronidazole, and methylprednisolone - Palliative care following - ENT, Dr. Ren consulted - home health, solcial work consulted Hypotension - Baseline is in 90s systolic - pt on remote tele - Nephro, Dr. Whyte consulted, appreciate recs Liver cirrhosis - CT abdomen: cirrhotic liver, no acute findings - GI, Dr. Herrera consulted for safety of Cetuximab in cirrhotic patient, agree with starting pt on cetuximab Thrombocytopenia - plt 121 yesterday, 114 - likely due to sequestration from cirrhosis as well as bone marrow suppression - will montior and supplement with FFP and plts prior to any procedure. - Hem/onc and GI following Alcohol Abuse, Anxiety - continue Ativan 1 q6 PRN anxiety - aspiration, fall, and seizure precaustions - advised on cessation Ppx - SCD - protonix Pt seen, examined, assessment and plan discussed with Dr Rob Ferrer PGY1 <Aden Rivas - Last Filed: 11/25/17 15:12> Objective - Vital Signs/Intake and Output Vital Signs (last 24 hours): Temp Pulse Resp BP Pulse Ox 98.4 F 99 H 20 100/67 97 11/25/17 06:00 11/25/17 06:00 11/25/17 06:00 11/25/17 06:00 11/25/17 06:00 Intake and Output: 11/25/17 11/25/17 06:59 18:59 Intake Total 1800 Balance 1800 - Medications Medications: Current Medications Acetaminophen (Tylenol 160mg/5ml Oral Soln) 320 mg PO Q4 PRN PRN Reason: Pain, Mild (1-3) Last Admin: 11/24/17 17:42 Dose: 320 mg Folic Acid (Folic Acid) 1 mg JT DAILY [facility] Last Admin: 11/25/17 10:01 Dose: 1 mg Potassium Chloride 10 meq/ (Sodium Chloride) 1,005 mls @ 100 mls/hr IV .Q10H3M [facility] Last Admin: 11/24/17 23:56 Dose: 100 mls/hr Ipratropium [place] (Atrovent) 0.5 mg IH [id number] [facility] Last Admin: 11/25/17 10:54 Dose: 0.5 mg Lidocaine (Lidoderm) 1 ea TD DAILY [facility] Last Admin: 11/25/17 10:01 Dose: 1 ea Lorazepam (Ativan) 1 mg IVP Q6H PRN; Protocol PRN Reason: Anxiety Last Admin: 11/24/17 12:04 Dose: 1 mg Metronidazole (Metrogel Cream) 0 gm TOP BID [facility] Last Admin: 11/25/17 10:03 Dose: 1 applic Nystatin (Nystop Topical Powder) 0 gm TOP BID [facility] Last Admin: 11/25/17 10:02 Dose: Not Given Nystatin (Nystatin Oral Susp) 5 ml PO QID [facility] Last Admin: 11/25/17 14:58 Dose: 5 ml Pantoprazole Sodium (Protonix Inj) 20 mg IVP Q12 [facility] Last Admin: 11/25/17 10:02 Dose: 20 mg Prednisone (Prednisone Tab) 20 mg PO DAILY [facility] Scopolamine (Transderm-Scop) 1 patch TD Q3D [facility] Last Admin: 11/22/17 18:02 Dose: 1 patch Tramadol HCl (Ultram) 50 mg GT TID PRN PRN Reason: Pain, moderate (4-7) Last Admin: 11/23/17 17:35 Dose: 50 mg - Labs Labs: 11/25/17 06:30 11/25/17 06:30 PT 11.6 SECONDS (9.4-12.5) 11/11/17 04:30 INR 1.02 11/11/17 04:30 APTT 26.9 Seconds (25.1-36.5) 11/11/17 04:30 Attending/Attestation - Attestation I have personally seen and examined this patient.: Yes I have fully participated in the care of the patient.: Yes I have reviewed all pertinent clinical information, including history, physical exam and plan: Yes Notes (Text): 11/25/17 15:10 Medical record note made by the resident after discussion with my direction and input after the patient was personally seen and examined by me. I have reviewed the chart and agree that the record accurately reflects by personal performance of the history, physical exam, data review, and medical decision-making, in the course for the patient. I have also personally directed the plan of care. - 52 year old female with past medical history of alcohol abuse and cirrhosis who presented with hematemesis. She was found to have a large friable mass in the hypopharynx. Biopsy showed squamous cell carcinoma. She is being followed by GI, hematology/oncology and radiation/oncology. She is receiving radiation treatment. She is s/p jejunostomy tube and tolerating feeds.We will switch to bolus feeding. Sepsis due to UTI, on IV zosyn .Blood cultures are negative.Patient is afebri le, will switch to oral in 24 hour. Tachycardia and Hypotension has improved. Prognosis is guarded.
--- NOTE | 2017-11-24 16:45 | PN ---
DATE: 11/24/2017 SUBJECTIVE: The patient is comfortable lying in bed. Jejunostomy feedings are ongoing. She continues to remain on IV fluid hydration for relative hypotension. She is on antibiotics for a fever spike yesterday. No cultures are available for comment. MEDICATIONS: Medication list reviewed. The patient is on Ativan, Atrovent, folic acid, Lidoderm, MetroGel cream, Nystatin oral suspension, nystatin topical powder, IV fluids with potassium chloride, Protonix, Robinul, Solu-Medrol, scopolamine, Tylenol, Ultram and Zosyn. OBJECTIVE: INTAKE/OUTPUT: Intake is 2200, output not charted. VITAL SIGNS: Blood pressure is ranging from 86-115 systolic, diastolics ranging from 54-75. Heart rate is 105-129. Temperature 97.3, down from a high of 99.8 yesterday. Respiratory rate is 18. HEENT: Shows her to be normocephalic, atraumatic. Conjunctivae remain pale. Sclerae are nonicteric. NECK: Supple. No neck vein distention. CHEST: Clear to auscultation and percussion. No rales, rhonchi or wheezing. CARDIOVASCULAR: Shows irregular rate and rhythm without murmurs, rubs or gallops audible. ABDOMEN: Soft. Jejunostomy tube in place. No rebound, guarding or masses. EXTREMITIES: Show no lower extremity cyanosis, clubbing or edema. LABORATORY DATA AND IMAGING: CBC today white blood cell count 7.3, hemoglobin 10, platelet count is 114,000. Chemistry shows electrolytes to be normal. BUN 10 with a creatinine of 0.4. Calcium is 8.1 with an albumin of 2.6, corrects to normal. Liver enzymes are normal. TSH level is normal at 0.55. Urines done yesterday showed white blood cells and red blood cells. Blood cultures and urine cultures are pending. ASSESSMENT: 1. Hypotension. The patient remains on IV fluid hydration. Blood pressure control is slightly better. 2. Possible urinary tract infection. Tachycardia, fevers and white blood cells in her urine. All cultures are pending. The patient remains on empiric IV antibiotic therapy. 3. 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 4. Status post jejunostomy tube placement for feedings. 5. History of alcohol use, alcoholic liver disease and early cirrhosis. 6. History of anemia secondary to chronic kidney disease and malignancy. PLAN: 1. We will continue the patient on IV fluid hydration until her blood pressure stabilizes. 2. Agree with cultures. Agree with empiric antibiotics. 3. Continue tube feedings via jejunostomy tube. 4. Continue management as per Oncology. 5. We will continue to monitor the patient until hemodynamics stabilized. New Pepper MD
--- NOTE | 2017-11-24 16:57 | CARD ---
APPROVED REPORT Date of service: 11/24/2017 EXAM: Two-dimensional and M-mode echocardiogram with Doppler and color Doppler. INDICATION LOW VOLTAGE EKG 2D DIMENSIONS Left Atrium (2D)3.0 (1.6-4.0cm)IVSd0.8 (0.7-1.1cm) LVDd4.0 (3.9-5.9cm)PWd0.8 (0.7-1.1cm) LVDs2.7 (2.5-4.0cm)FS (%) 31.7 % LVEF (%)60.3 (>50%) M-Mode DIMENSIONS Aortic Root2.70 (2.2-3.7cm)Aortic Cusp Exc.1.60 (1.5-2.0cm) Aortic Valve AoV Peak Edyrehht079.0cm/Tim Peak GR.6mmHg Mitral Valve E/A ratio0.0 TDI E/Lateral E'0.0E/Medial E'0.0 Tricuspid Valve TR Peak [id number] [id number] Peak Gr.7mmHg [id number] LEFT VENTRICLE The left ventricle is normal size. There is normal left ventricular wall thickness. The left ventricular function is normal. The left ventricular ejection fraction is within the normal range. There is normal LV segmental wall motion. Transmitral Doppler flow pattern is Grade I-abnormal relaxation pattern. RIGHT VENTRICLE The right ventricle is normal size. There is normal right ventricular wall thickness. The right ventricular systolic function is normal. ATRIA The left atrium size is normal. The right atrium size is normal. AORTIC VALVE The aortic valve is not well visualized. There is trace aortic regurgitation. There is no aortic valvular stenosis. MITRAL VALVE The mitral valve is normal in structure. There is no mitral valve regurgitation noted. There is no mitral valve stenosis. TRICUSPID VALVE The tricuspid valve is normal in structure. There is no tricuspid valve regurgitation noted. There is no tricuspid valve stenosis. PULMONIC VALVE The pulmonary valve is normal in structure. There is trace pulmonic valvular regurgitation. GREAT VESSELS The aortic root is normal in size. The IVC is normal in size and collapses >50% with inspiration. PERICARDIAL EFFUSION There is no pericardial effusion. <Conclusion> The left ventricle is normal size. There is normal left ventricular wall thickness. The left ventricular function is normal. The left ventricular ejection fraction is within the normal range. There is normal LV segmental wall motion. Transmitral Doppler flow pattern is Grade I-abnormal relaxation pattern.
[2017-11-25] MEDS: Ipratropium 0.02% Inhal Soln (0.5 mg/2.5 ml) UD IH SCH ×6 (05:00→23:40)
--- NOTE | 2017-11-25 05:59 | PN ---
DATE: 11/24/2017 PULMONARY PROGRESS NOTE REFERRING PHYSICIAN: Dr. Evans. SUBJECTIVE: The patient is lying in the bed, head at 45 degrees, nursing staff at bedside. Overall, feels better. Decreased cough and shortness of breath. No more hemoptysis. No abdominal pain. No leg pain or leg swelling. OBJECTIVE: GENERAL: No acute distress. VITAL SIGNS: Temperature is 98, heart rate is 108, respiratory rate is 20, blood pressure 97/62, pulse ox is 96% on room air. HEENT: Moist mucous membranes. No ulcer or thrush noted. NECK: Supple. No JVD. LUNGS: Has a better airflow, still has a few rhonchi. HEART: S1 and S2. ABDOMEN: Soft and nontender. No organomegaly. G-tube looks okay. EXTREMITIES: No edema. NEUROLOGIC: Awake, alert, and follow simple commands. MEDICATIONS: She is on lorazepam 1 mg every 6 hours p.r.n., Atrovent 0.5 mg inhale every 4 hours, folic acid 1 mg daily, lidocaine patch to affected area, metronidazole to affected area - a gel, nystatin oral sustention four times a day. Getting IV fluids, potassium 100 mL per hour, Protonix 20 mg every 12 hours, glycopyrrolate 0.2 mg every 8 hours, also on Solu-Medrol 40 mg every 12 hours, transdermal scopolamine patch every 3 days, Tylenol p.r.n., Ultram 50 mg three times a day, p.r.n. LABORATORY DATA: Shows hemoglobin 10, hematocrit 31.7, WBC 7.3, platelet count is 114. Sodium 141, potassium 4.2, chloride 109, bicarbonate 28, BUN 10, creatinine 0.4. Calcium is 8.1. AST 22, ALT 25, alkaline phosphatase is 52, albumin is 2.6. Microbiology; blood culture has been negative. Echocardiogram done, which shows right ventricular systolic pressure is 17, left ventricular function is normal. There is grade 1 abnormal relaxation pattern. 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 Spoke to the nursing staff. We will continue bronchodilator. Keep head at 45 degrees. Get physical therapy, ambulate. Aspiration precaution. Thank you and we will follow with you. Aden Tilley MD [facility] # [id number]
[2017-11-25] MEDS: Glycopyrrolate 0.2 mg/ml (2ml vial) IV SCH ×2 (06:10→06:27)
[2017-11-25 07:16] LABS: EOS % 0.2 % (1.5-5.0); GRAN # 5.24 (1.4-6.5); GRAN % 94.2 % (50.0-68.0); HEMOGLOBIN 10.3 g/dL (12.0-16.0); LYMPH # 0.2 (1.2-3.4); LYMPH % 3.1 % (22.0-35.0); MEAN CORPUSCULAR HEMOGLOBIN 31.5 pg (25.0-35.0); MEAN CORPUSCULAR HGB CONC 31.5 g/dl (31.0-37.0); MEAN PLATELET VOLUME 11.1 fl (7.0-11.0); MONO # 0.1 (0.1-0.6); MONO % 2.5 % (1.0-6.0); PLATELET COUNT 104 10^3/uL (120.0-450.0); RBC 3.27 10^6/uL (3.5-6.1); RED CELL DISTRIBUTION WIDTH 15.5 % (11.5-14.5); WHITE BLOOD COUNT 5.6 10^3/ul (4.5-11.0)
[2017-11-25 07:27] LABS: ALB/GLOB RATIO 0.9 (1.1-1.8); ALBUMIN 2.5 g/dL (3.0-4.8); ALT/SGPT 23 U/L (7-56); AST/SGOT 22 U/L (14-36); BLOOD UREA NITROGEN 12 mg/dL (7-21); GFR NON-AFRICAN AMERICAN > 60
[2017-11-25 08:17] LABS: LYMPHOCYTE 4 % (22.0-35.0); MONOCYTE 1 % (1.0-6.0); NEUTROPHIL 95 % (50.0-70.0)
[2017-11-25 08:18] LABS: PLATELET ESTIMATE LOW (NORMAL)
[2017-11-25] MEDS: Nystatin 100,000 Units/ml Oral Susp 5 ml UD PO SCH ×4 (10:01→22:51)
[2017-11-25] MEDS: Lidocaine 5% Patch TD SCH (10:01)
[2017-11-25] MEDS: Nystatin 100,000 Units/gm Topical Pow(15 gm) TOP SCH ×2 (10:02→17:38)
[2017-11-25] MEDS: MethylPREDNISolone 40 mg Vial IVP SCH (10:02)
[2017-11-25] MEDS: MetroNIDAZOLE 0.75% Cream(45 gm) TOP SCH ×2 (10:03→17:37)
--- NOTE | 2017-11-25 11:13 | CP.PCM.PN ---
Subjective - Date & Time of Evaluation Date of Evaluation: 11/25/17 Time of Evaluation: 09:13 - Subjective Subjective: Crow Peacock PGY2 Heme/Onc Progress Note for Dr. Cleveland The patient was seen and examined at bedside. There were no acute overnight events. The patient's feeds are being switched to nocturnal feeds w/ breakfast and lunch boluses. The patient is being planned for chemotherapy but her brother has not yet contacted Dr. Cleveland. Dr. Colbert's contact information was again provided to the patient. We are requesting ID consult to comment on need for antibiotics considering we are starting chemotherapy. Objective - Vital Signs/Intake and Output Vital Signs (last 24 hours): Temp Pulse Resp BP Pulse Ox 98.2 F 95 H 19 97/62 L 96 11/24/17 20:44 11/25/17 06:00 11/24/17 20:44 11/24/17 20:44 11/24/17 20:44 Intake and Output: 11/25/17 11/25/17 06:59 18:59 Intake Total 1800 Balance 1800 - Medications Medications: Current Medications Acetaminophen (Tylenol 160mg/5ml Oral Soln) 320 mg PO Q4 PRN PRN Reason: Pain, Mild (1-3) Last Admin: 11/24/17 17:42 Dose: 320 mg Folic Acid (Folic Acid) 1 mg JT DAILY [facility] Last Admin: 11/25/17 10:01 Dose: 1 mg Glycopyrrolate (Robinul) 0.2 mg IV Q8 [facility] Last Admin: 11/25/17 06:27 Dose: 0.2 mg Potassium Chloride 10 meq/ (Sodium Chloride) 1,005 mls @ 100 mls/hr IV .Q10H3M [facility] Last Admin: 11/24/17 23:56 Dose: 100 mls/hr Ipratropium [place] (Atrovent) 0.5 mg IH [id number] [facility] Last Admin: 11/25/17 10:54 Dose: 0.5 mg Lidocaine (Lidoderm) 1 ea TD DAILY [facility] Last Admin: 11/25/17 10:01 Dose: 1 ea Lorazepam (Ativan) 1 mg IVP Q6H PRN; Protocol PRN Reason: Anxiety Last Admin: 11/24/17 12:04 Dose: 1 mg Methylprednisolone (Solu-Medrol) 40 mg IVP Q12 [facility] Last Admin: 11/25/17 10:02 Dose: 40 mg Metronidazole (Metrogel Cream) 0 gm TOP BID [facility] Last Admin: 11/25/17 10:03 Dose: 1 applic Nystatin (Nystop Topical Powder) 0 gm TOP BID [facility] Last Admin: 11/25/17 10:02 Dose: Not Given Nystatin (Nystatin Oral Susp) 5 ml PO QID [facility] Last Admin: 11/25/17 10:01 Dose: 5 ml Pantoprazole Sodium (Protonix Inj) 20 mg IVP Q12 [facility] Last Admin: 11/25/17 10:02 Dose: 20 mg Scopolamine (Transderm-Scop) 1 patch TD Q3D [facility] Last Admin: 11/22/17 18:02 Dose: 1 patch Tramadol HCl (Ultram) 50 mg GT TID PRN PRN Reason: Pain, moderate (4-7) Last Admin: 11/23/17 17:35 Dose: 50 mg - Labs Labs: 11/25/17 06:30 11/25/17 06:30 PT 11.6 SECONDS (9.4-12.5) 11/11/17 04:30 INR 1.02 11/11/17 04:30 APTT 26.9 Seconds (25.1-36.5) 11/11/17 04:30 - Additional Findings Additional findings: - Constitutional Appears: Non-toxic, No Acute Distress, Cachectic - Head Exam Head Exam: NORMOCEPHALIC - Eye Exam Eye Exam: EOMI, Normal appearance, PERRL - ENT Exam ENT Exam: Mucous Membranes Dry - Neck Exam Neck exam: Positive for: Full Rom. Negative for: Tenderness - Respiratory Exam Respiratory Exam: NORMAL BREATHING PATTERN. absent: Rales, Rhonchi, Wheezes - Cardiovascular Exam Cardiovascular Exam: Tachycardia, +S1, +S2. absent: Systolic Murmur - GI/Abdominal Exam GI & Abdominal Exam: Soft. 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 Intraluminal esophageal lesion was noted on imaging and a large friable hypopharyngeal mass completely obstructing the airway was seen on upper endoscopy and laryngoscopy. Given her cirrhosis, the patient's platelet level was low likely due to sequestration as well as bone marrow suppression and was supplemented with FFP and plts prior procedures. Patient underwent J-tube placement for parenteral nutrition and supplementation. 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 Patient has been started on XRT and is currently scheduled for 35 sessions total to end 01/05, daily Thursday-Thursday; she also needs to be optimized nutritionally. The patient has shown very poor outpatient follow-up and is at risk for neglecting her care if discharged prematurely. She also needs to monitored further as she receives XRT due to the acute side-effects, especially in a malignancy such as hers that could compromise her airway. Her feeds have been switched to nocturnal feeds w/ breakfast and lunch boluses which would mimic her outpatient regimen so she can participate in daily activities. Plan: - Radiation Oncology, Dr. Carrero, for XRT - Cetuximab therapy pending; she will require weekly - ID consulted regarding abx recommendation - GI reconsulted agrees w/ cetuximab in lgiht of hx of cirrhosis - tube feedings for optimal nutritional status; cont as outlined above - HPV titers requested from pathologist - cont hydration and tube feedings to optimize patient - Further recs per Dr. Cleveland Case was reviewed and discussed with attending, Dr. Cristofer Peacock PGY2
[2017-11-25 15:27] LABS: PH,URINE 8.5 (4.7-8.0); URINE BILIRUBIN NEGATIVE (NEGATIVE); URINE BLOOD NEGATIVE (NEGATIVE); URINE GLUCOSE (UA) NEGATIVE (NEGATIVE); URINE LEUKOCYTE ESTERASE NEGATIVE Leu/uL (NEGATIVE); URINE PROTEIN NEGATIVE mg/dL (<30 mg/dL); URINE UROBILINOGEN 0.2 E.U./dL (<1 E.U./dL)
[2017-11-25 15:28] LABS: URINE APPEARANCE CLEAR (CLEAR); URINE COLOR YELLOW (YELLOW)
--- NOTE | 2017-11-25 16:25 | PN ---
DATE: 11/25/2017 PULMONARY PROGRESS NOTE REFERRING PHYSICIAN: Dr. Evans. SUBJECTIVE: She is out of bed to [facility]. Tachypneic and tachycardic. No chest pain. No nausea. Feels bloated. Has frequent bowel movement. No leg pain or leg swelling. OBJECTIVE: GENERAL: In no acute distress. VITAL SIGNS: Temperature is 98, heart rate is 99, respiratory rate is 20, blood pressure 100/67, pulse ox 97% on room air. HEENT: Moist mucous membrane. No ulcer or thrush noted. NECK: Supple. No JVD. LUNGS: Have a fair airflow with rhonchi. HEART: S1 and S2. ABDOMEN: Soft, nontender, nondistended. EXTREMITIES: No edema. NEUROLOGICAL: Awake and alert. Follows simple command. MEDICATIONS: She is on Ativan 1 mg every 6 hours p.r.n., Atrovent inhaled every 4 hours, folic acid 1 mg daily, lidocaine patch to the affected area, getting metronidazole at affected area, nystatin oral suspension 5 mL four times a day, also getting potassium supplement with saline, prednisone is 40 mg daily, Protonix is 20 mg every 12 hours, she is on glycopyrrolate 0.2 mg every 8 hours, scopolamine patch every 3 hours, Tylenol p.r.n., Ultram every 8 hours p.r.n. LABORATORY DATA: Shows hemoglobin 10.3, hematocrit 32.7, WBC 5.6, platelet count is 104. Sodium 139, potassium 4.1, chloride 107, bicarbonate 29, BUN 12, creatinine 0.4, glucose 134, calcium is 8, magnesium is 1.6, AST 22, ALT 23, alk phos is 56, albumin is 2.5. Microbiology: Blood culture, urine culture, there is no growth. Had echocardiogram done yesterday, which shows right ventricular systolic pressure is 17, LV ejection fraction is unremarkable. May have a mild cardiac diastolic dysfunction. 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 Pulmonary point of view, doing okay. We will cut down the steroids. Discontinue glycopyrrolate. Gastric prophylaxis. Deep venous thrombosis prophylaxis. Aspiration precaution. Fall precaution. Thank you and we will follow with you. Aden Tilley MD [facility] # [id number]
--- NOTE | 2017-11-25 17:09 | CP.PCM.PN ---
<Torito Ferrer - Last Filed: 11/25/17 17:04> Subjective - Date & Time of Evaluation Date of Evaluation: 11/25/17 Time of Evaluation: 06:00 - Subjective Subjective: Pt seen and examined. Pt reports she no longer has dysuria and is not going to the bathroom as much as before. Does admit toDenies fever, chills, headache, chest pain, abdominal pain, suprapubic or flank pain. Objective - Vital Signs/Intake and Output Vital Signs (last 24 hours): Temp Pulse Resp BP Pulse Ox 98.0 F 97 H 19 91/61 L 95 11/25/17 17:04 11/25/17 17:04 11/25/17 17:04 11/25/17 17:04 11/25/17 17:04 Intake and Output: 11/25/17 11/25/17 06:59 18:59 Intake Total 1800 Balance 1800 - Medications Medications: Current Medications Acetaminophen (Tylenol 160mg/5ml Oral Soln) 320 mg PO Q4 PRN PRN Reason: Pain, Mild (1-3) Last Admin: 11/24/17 17:42 Dose: 320 mg Folic Acid (Folic Acid) 1 mg JT DAILY [facility] Last Admin: 11/25/17 10:01 Dose: 1 mg Potassium Chloride 10 meq/ (Sodium Chloride) 1,005 mls @ 100 mls/hr IV .Q10H3M [facility] Last Admin: 11/25/17 15:33 Dose: 100 mls/hr Ipratropium [place] (Atrovent) 0.5 mg IH [id number] [facility] Last Admin: 11/25/17 16:12 Dose: 0.5 mg Lidocaine (Lidoderm) 1 ea TD DAILY [facility] Last Admin: 11/25/17 10:01 Dose: 1 ea Lorazepam (Ativan) 1 mg IVP Q6H PRN; Protocol PRN Reason: Anxiety Last Admin: 11/24/17 12:04 Dose: 1 mg Metronidazole (Metrogel Cream) 0 gm TOP BID [facility] Last Admin: 11/25/17 10:03 Dose: 1 applic Nystatin (Nystop Topical Powder) 0 gm TOP BID [facility] Last Admin: 11/25/17 10:02 Dose: Not Given Nystatin (Nystatin Oral Susp) 5 ml PO QID [facility] Last Admin: 11/25/17 14:58 Dose: 5 ml Pantoprazole Sodium (Protonix Inj) 20 mg IVP Q12 [facility] Last Admin: 11/25/17 10:02 Dose: 20 mg Prednisone (Prednisone Tab) 20 mg PO DAILY [facility] Scopolamine (Transderm-Scop) 1 patch TD Q3D [facility] Last Admin: 11/22/17 18:02 Dose: 1 patch Tramadol HCl (Ultram) 50 mg GT TID PRN PRN Reason: Pain, moderate (4-7) Last Admin: 11/25/17 15:32 Dose: 50 mg - Labs Labs: 11/25/17 06:30 11/25/17 06:30 PT 11.6 SECONDS (9.4-12.5) 11/11/17 04:30 INR 1.02 11/11/17 04:30 APTT 26.9 Seconds (25.1-36.5) 11/11/17 04:30 - Constitutional Appears: No Acute Distress - Head Exam Head Exam: NORMAL INSPECTION, NORMOCEPHALIC - Eye Exam Eye Exam: EOMI, Normal appearance - ENT Exam ENT Exam: Mucous Membranes Moist - Respiratory Exam Respiratory Exam: Clear to Ausculation Bilateral, NORMAL BREATHING PATTERN. absent: Wheezes, Respiratory Distress - Cardiovascular Exam Cardiovascular Exam: RRR, +S1, +S2. absent: Murmur - GI/Abdominal Exam GI & Abdominal Exam: Soft, Normal Bowel Sounds Additional comments: J tube in place, mild tenderness to palpation around T-tube insertion site - Extremities Exam Extremities Exam: Full ROM, Normal Inspection. absent: Calf Tenderness, Pedal Edema - Neurological Exam Neurological Exam: Alert, Awake, Oriented x3 - Psychiatric Exam Psychiatric exam: Normal Affect, Normal Mood - Skin Skin Exam: Warm Additional comments: erythematous rash on cheeks and neck Assessment and Plan - Assessment and Plan (Free Text) Assessment: Pt is a 52 yo female with a PMH of alcohol abuse and cirrhosis, who was admitted for evaluation and treatment of hematemesis. 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 Patient is kept NPO and is s/p jejunostomy tube insertion. Pt received 8 sessions of radiation to day. (started 11/16). Pt is willing to consent to cetuximab tx for her cancer. Hem/onc will get ID on board to manage abx while on chemo. Plan: Hematemesis, Dysphagia, secondary to squamous cell carcinoma - Bolus tube feeds during day for nutrition optimization, 20% boluses with lunch and dinner, 80% infusion at night. - continue tramadol for pain - Pt needs to be consented for cetuximab treatment, will begin tx per hem/onc, Dr. Weller - radiation oncology, Dr. Carrero following; Pt started radiation therapy on 11/16 (M-F daily), Received 8 sessions to date. XRT today was held due to technical difficulties today. She will need 35 sessions total, to end on 01/05. - Pulm, Dr. Tilley following, pt on aspiration precautions, inhaled bronchodilator for upper airway secretions - switched IV methylprednisolone to oral prednisone 20 mg, continue to taper - Palliative care following - ENT, Dr. Ren consulted - home health, solcial work consulted, pt most likely will need subacute rehab UTI - pts symptoms have resolved, afebrile, vital signs stable - UA (11/23) positive for nitrites, leukocyte esterase, protein and blood, repeat UA (11/25) negative - blood cultures negative x24hrs - urine cultures: multiple species, will not need repeat urine culture as pt is asymptomatic, repeat UA negative and pt has completed 2 days of IV zosyn 3.375gm q8 Hypotension - Baseline is in 90s systolic - BP has been fluctuating between 85-115 systolic, 54-75 diastolic - pt on remote tele - Nephro, Dr. Whyte consulted, will continue pt on IV fluids until BP stabilizes Liver cirrhosis - CT abdomen: cirrhotic liver, no acute findings - GI, Dr. Herrera consulted for safety of Cetuximab in cirrhotic patient, agree with starting pt on cetuximab Thrombocytopenia - plt downtrending 121 114 104 - likely due to sequestration from cirrhosis as well as bone marrow suppression - will montior and supplement with FFP and plts prior to any procedure. - Hem/onc and GI following Alcohol Abuse, Anxiety - continue Ativan 1 q6 PRN anxiety - aspiration, fall, and seizure precaustions - advised on cessation Ppx - SCD - protonix Pt seen, examined, assessment and plan discussed with Dr Rob Ferrer PGY1 <Aden Rivas - Last Filed: 11/26/17 17:01> Objective - Vital Signs/Intake and Output Vital Signs (last 24 hours): Temp Pulse Resp BP Pulse Ox 97.4 F L 79 19 94/62 L 97 11/26/17 06:00 11/26/17 06:00 11/26/17 06:00 11/26/17 06:00 11/26/17 06:00 - Medications Medications: Current Medications Acetaminophen (Tylenol 160mg/5ml Oral Soln) 320 mg PO Q4 PRN PRN Reason: Pain, Mild (1-3) Last Admin: 11/24/17 17:42 Dose: 320 mg Folic Acid (Folic Acid) 1 mg JT DAILY [facility] Last Admin: 11/26/17 11:34 Dose: 1 mg Piperacillin Sod/Tazobactam Sod (Zosyn 3.375 In Ns 100ml) 100 mls @ 25 mls/hr IVPB Q8 LIZ; Protocol Stop: 11/27/17 01:59 Last Admin: 11/26/17 14:34 Dose: Not Given Potassium Chloride 30 meq/ (Sodium Chloride) 1,015 mls @ 40 mls/hr IV .Q24H LI[facility] Ipratropium [place] (Atrovent) 0.5 mg IH [id number] [facility] Last Admin: 11/26/17 16:36 Dose: 0.5 mg Lidocaine (Lidoderm) 1 ea TD DAILY [facility] Last Admin: 11/26/17 11:35 Dose: 1 ea Lorazepam (Ativan) 1 mg IVP Q6H PRN; Protocol PRN Reason: Anxiety Last Admin: 11/25/17 23:08 Dose: 1 mg Metronidazole (Metrogel Cream) 0 gm TOP BID [facility] Last Admin: 11/26/17 11:37 Dose: 1 applic Nystatin (Nystop Topical Powder) 0 gm TOP BID [facility] Last Admin: 11/25/17 17:38 Dose: Not Given Nystatin (Nystatin Oral Susp) 5 ml PO QID IL[facility] Last Admin: 11/26/17 14:38 Dose: 5 ml Pantoprazole Sodium (Protonix Inj) 20 mg IVP Q12 [facility] Last Admin: 11/26/17 11:34 Dose: 20 mg Prednisone (Prednisone Tab) 20 mg PO DAILY [facility] Last Admin: 11/26/17 11:34 Dose: 20 mg Scopolamine (Transderm-Scop) 1 patch TD Q3D [facility] Last Admin: 11/25/17 17:38 Dose: 1 patch Tramadol HCl (Ultram) 50 mg GT TID PRN PRN Reason: Pain, moderate (4-7) Last Admin: 11/26/17 13:10 Dose: 50 mg - Labs Labs: 11/26/17 07:00 11/26/17 07:00 PT 11.6 SECONDS (9.4-12.5) 11/11/17 04:30 INR 1.02 11/11/17 04:30 APTT 26.9 Seconds (25.1-36.5) 11/11/17 04:30 Attending/Attestation - Attestation I have personally seen and examined this patient.: Yes I have fully participated in the care of the patient.: Yes I have reviewed all pertinent clinical information, including history, physical exam and plan: Yes Notes (Text): 11/26/17 17:01 Medical record note made by the resident after discussion with my direction and input after the patient was personally seen and examined by me. I have reviewed the chart and agree that the record accurately reflects by personal performance of the history, physical exam, data review, and medical decision-making, in the course for the patient. I have also personally directed the plan of care.
--- NOTE | 2017-11-25 17:48 | PN ---
DATE: 11/25/2017 SUBJECTIVE: The patient is seen lying in bed. She appears in moderate distress. She has been having abdominal pain. She has also been having diarrhea. Also, her heart rate is running high. PHYSICAL EXAMINATION: GENERAL: Cachectic-appearing middle-aged lady, lying in bed. VITAL SIGNS: Blood pressure 100/67, heart rate 130, respiratory rate 20, and temperature 98.4. HEENT: Normocephalic, atraumatic, positive pallor. NECK: Supple, no JVD. LUNGS: Bilateral equal air entry, bilateral equal expansion, decreased air entry at bases. CARDIAC: S1 and S2, regular rate and rhythm, positive murmur, no rub. ABDOMEN: Soft, diffuse tenderness in the left lower quadrant, positive PEG, bowel sounds present. EXTREMITIES: No lower extremity edema. INTAKE AND OUTPUT: 1800/not charted. LABORATORY DATA: WBC 5.6, hemoglobin 10.3, hematocrit 33, and platelets 104. Sodium 139, potassium 4.1, chloride 107, CO2 of 29. BUN 12, creatinine 0.4. Glucose 134. Calcium 8, phosphorus 3.7, magnesium 1.7, albumin 2.5, corrected calcium is 9. Urinalysis, light yellow, cloudy, pH 8, specific 1.010, protein trace, blood trace, nitrite positive, leukocyte esterase positive. Urine culture, more than 100,000 colonies of multiple species. Blood cultures no growth. CURRENT MEDICATIONS: Ativan, Atrovent, folic acid, Lidoderm, normal saline with 10 mEq of KCl at 100, prednisone 20, Protonix, scopolamine, Ultram, Zosyn 3.375 every 8 hours x1 dose only? Repeat urine culture ordered by Dr. Hdz. ASSESSMENT: 1. Hypotension, continue IV fluids. 2. Tachycardia, fever, repeat urine culture. 3. History of squamous cell cancer of the larynx. 4. Malnutrition, now with percutaneous endoscopic gastrostomy placement. 5. History of alcohol abuse, alcoholic liver disease. 6. Severe anemia. PLAN: 1. Continue IV fluids. 2. Continue PEG feeding. 3. Repeat urine culture. 4. Empiric antibiotics as per ID recommendations. Shanae Whyte MD [facility] # [id number]
[2017-11-26] MEDS: Ipratropium 0.02% Inhal Soln (0.5 mg/2.5 ml) UD IH SCH ×6 (05:08→23:14)
[2017-11-26 07:17] LABS: EOS % 0.5 % (1.5-5.0); GRAN # 3.51 (1.4-6.5); GRAN % 80.1 % (50.0-68.0); HEMOGLOBIN 10.2 g/dL (12.0-16.0); LYMPH # 0.5 (1.2-3.4); LYMPH % 12.3 % (22.0-35.0); MEAN CELL VOLUME 100.3 fl (80.0-105.0); MEAN CORPUSCULAR HEMOGLOBIN 31.7 pg (25.0-35.0); MEAN CORPUSCULAR HGB CONC 31.6 g/dl (31.0-37.0); MEAN PLATELET VOLUME 11.4 fl (7.0-11.0); MONO # 0.3 (0.1-0.6); MONO % 7.1 % (1.0-6.0); RBC 3.22 10^6/uL (3.5-6.1); RED CELL DISTRIBUTION WIDTH 15.5 % (11.5-14.5); WHITE BLOOD COUNT 4.4 10^3/ul (4.5-11.0)
[2017-11-26 08:03] LABS: ALB/GLOB RATIO 0.8 (1.1-1.8); ALBUMIN 2.2 g/dL (3.0-4.8); ALT/SGPT 31 U/L (7-56); AST/SGOT 25 U/L (14-36); BLOOD UREA NITROGEN 13 mg/dL (7-21); CALCIUM 7.8 mg/dL (8.4-10.5); GFR NON-AFRICAN AMERICAN > 60
--- NOTE | 2017-11-26 09:12 | CP.PCM.PN ---
Subjective - Date & Time of Evaluation Date of Evaluation: 11/26/17 Time of Evaluation: 07:11 - Subjective Subjective: Crow Peacock PGY2 Heme/Onc Progress Note for Dr. Cleveland The patient was seen and examined at bedside. There were no acute overnight events. The patient's feeds have been causing her abdominal discomfort and we are working on finding the correct rate; I have asked the nurse to contact the service establishment attendant regarding optimizing the feeds. The patient is being planned for chemotherapy but her brother has not yet contacted Dr. Cleveland. Dr. Colbert's contact information was provided to the patient. The patient is planned for XRT today. Objective - Vital Signs/Intake and Output Vital Signs (last 24 hours): Temp Pulse Resp BP Pulse Ox 97.4 F L 79 19 94/62 L 97 11/26/17 06:00 11/26/17 06:00 11/26/17 06:00 11/26/17 06:00 11/26/17 06:00 - Medications Medications: Current Medications Acetaminophen (Tylenol 160mg/5ml Oral Soln) 320 mg PO Q4 PRN PRN Reason: Pain, Mild (1-3) Last Admin: 11/24/17 17:42 Dose: 320 mg Folic Acid (Folic Acid) 1 mg JT DAILY [facility] Last Admin: 11/25/17 10:01 Dose: 1 mg Potassium Chloride 10 meq/ (Sodium Chloride) 1,005 mls @ 100 mls/hr IV .Q10H3M [facility] Last Admin: 11/25/17 15:33 Dose: 100 mls/hr Ipratropium [employer] (Atrovent) 0.5 mg IH [id number] [facility] Last Admin: 11/26/17 08:17 Dose: Not Given Lidocaine (Lidoderm) 1 ea TD DAILY [facility] Last Admin: 11/25/17 10:01 Dose: 1 ea Lorazepam (Ativan) 1 mg IVP Q6H PRN; Protocol PRN Reason: Anxiety Last Admin: 11/25/17 23:08 Dose: 1 mg Metronidazole (Metrogel Cream) 0 gm TOP BID [facility] Last Admin: 11/25/17 17:37 Dose: 1 applic Nystatin (Nystop Topical Powder) 0 gm TOP BID [facility] Last Admin: 11/25/17 17:38 Dose: Not Given Nystatin (Nystatin Oral Susp) 5 ml PO QID [facility] Last Admin: 11/25/17 22:51 Dose: 5 ml Pantoprazole Sodium (Protonix Inj) 20 mg IVP Q12 [facility] Last Admin: 11/25/17 22:51 Dose: 20 mg Prednisone (Prednisone Tab) 20 mg PO DAILY [facility] Scopolamine (Transderm-Scop) 1 patch TD Q3D [facility] Last Admin: 11/25/17 17:38 Dose: 1 patch Tramadol HCl (Ultram) 50 mg GT TID PRN PRN Reason: Pain, moderate (4-7) Last Admin: 11/25/17 15:32 Dose: 50 mg - Labs Labs: 11/26/17 07:00 11/26/17 07:00 PT 11.6 SECONDS (9.4-12.5) 11/11/17 04:30 INR 1.02 11/11/17 04:30 APTT 26.9 Seconds (25.1-36.5) 11/11/17 04:30 - Additional Findings Additional findings: - Constitutional Appears: Non-toxic, No Acute Distress, Cachectic - Head Exam Head Exam: NORMOCEPHALIC - Eye Exam Eye Exam: EOMI, Normal appearance, PERRL - ENT Exam ENT Exam: Mucous Membranes Dry - Neck Exam Neck exam: Positive for: Full Rom. Negative for: Tenderness - Respiratory Exam Respiratory Exam: NORMAL BREATHING PATTERN. absent: Rales, Rhonchi, Wheezes - Cardiovascular Exam Cardiovascular Exam: Tachycardia, +S1, +S2. absent: Systolic Murmur - GI/Abdominal Exam GI & Abdominal Exam: Soft. 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 Intraluminal esophageal lesion was noted on imaging and a large friable hypopharyngeal mass completely obstructing the airway was seen on upper endosc opy and laryngoscopy. Given her cirrhosis, the patient's platelet level was low likely due to sequestration as well as bone marrow suppression and was supplemented with FFP and plts prior procedures. Patient underwent J-tube placement for parenteral nutrition and supplementation. 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 Patient has been started on XRT and is currently scheduled for 35 sessions total to end 01/05, daily Thursday-Thursday; she also needs to be optimized nutritionally. The patient has shown very poor outpatient follow-up and is at risk for neglecting her care if discharged prematurely. She also needs to monitored further as she receives XRT due to the acute side-effects, especially in a malignancy such as hers that could compromise her airway. Her feeds have been switched to nocturnal feeds w/ breakfast and lunch boluses which would mimic her outpatient regimen so she can participate in daily activities; the feeds do need to be optimized however. Plan: - Radiation Oncology, Dr. Carrero, for XRT - Cetuximab therapy pending discussion w/ her brother; she will require weekly therapy - ID consulted regarding abx recommendation - GI team agrees w/ cetuximab in lgiht of hx of cirrhosis - tube feedings for optimal nutritional status; cont as outlined above - HPV titers requested from pathologist - cont hydration and tube feedings to optimize patient - Further recs per Dr. Cleveland Case was reviewed and discussed with attending, Dr. Cristofer Peacock PGY2
[2017-11-26] MEDS: Nystatin 100,000 Units/ml Oral Susp 5 ml UD PO SCH ×4 (11:34→21:57)
[2017-11-26] MEDS: Lidocaine 5% Patch TD SCH (11:35)
[2017-11-26] MEDS: MetroNIDAZOLE 0.75% Cream(45 gm) TOP SCH ×2 (11:37→18:55)
[2017-11-26] MEDS ORDERED: Sodium Chloride 0.9% 500 ML IV STA (12:37)
[2017-11-26] MEDS ORDERED: Piperacillin/Tazobact 3.375 gm 100 ML IVPB SCH (14:00)
[2017-11-26] MEDS: Piperacillin/Tazobact 3.375 gm 100 ML IVPB SCH ×2 (14:34→21:57)
--- NOTE | 2017-11-26 15:06 | CARD ---
APPROVED REPORT Date of service: 11/26/2017 EKG Measurement Heart [id number] <Conclusion> Sinus tachycardia with occasional premature ventricular complexes Low voltage QRS ST & T wave abnormality, consider lateral ischemia Abnormal ECG
[2017-11-26] MEDS ORDERED: Magnesium Sulfate 1 gm in D5W 1 GM/100 ML BAG IVPB ONE (15:20)
--- NOTE | 2017-11-26 17:16 | PN ---
DATE: 11/26/2017 SUBJECTIVE: The patient is seen lying in bed. She is awake. She is alert. She reports diarrhea again. She complains of abdominal cramps. She complains of abdominal pain after feeding. PHYSICAL EXAMINATION: GENERAL: Middle-aged lady, lying in bed, cachectic. VITAL SIGNS: Blood pressure 94/62, heart rate 79, respiratory rate 19, temperature 97.4. HEENT: Normocephalic, atraumatic, positive pallor. NECK: Supple, no JVD. LUNGS: Bilateral equal air entry, decreased breath sounds at bases. CARDIAC: S1 and S2, regular rate and rhythm, no murmur, no rub. ABDOMEN: Soft, nondistended, positive tenderness in the left lower quadrant, positive PEG placement. EXTREMITIES: No lower extremity edema. INTAKE AND OUTPUT: 1680/not charted. LABORATORY DATA: WBC 4, hemoglobin 10, hematocrit 32, platelets 85. Sodium 139, potassium 3.6, chloride 108, CO2 of 28, BUN 13, creatinine 0.4, glucose 81, calcium 7.8, phosphorus 3.7, magnesium 1.6. Cultures: No growth. CURRENT MEDICATIONS: Ativan, Atrovent, folic acid, Lidoderm, nystatin, normal saline with 20 mEq of KCl at 100, prednisone, Protonix, Zosyn. ASSESSMENT: 1. Hypokalemia. 2. Hypomagnesemia. 3. Hypotension, resolved. 4. Sinus tachycardia. 5. Squamous cell cancer of the larynx. 6. History of alcohol abuse, liver disease. PLAN: 1. Change IV fluids to normal saline with 30 mEq of KCl at 60 mL/hour. 2. Replace magnesium IV. 3. Continue tube feeding. 4. Management of malignancy as per Oncology team. Shanae Whyte MD
[2017-11-26] MEDS ORDERED: Tmp-Smz 800 mg-160 mg DS Tab PO SCH (18:00)
--- NOTE | 2017-11-26 18:21 | CP.PCM.PN ---
<Torito Ferrer - Last Filed: 11/26/17 18:26> Subjective - Date & Time of Evaluation Date of Evaluation: 11/26/17 Time of Evaluation: 18:18 - Subjective Subjective: Pt seen and examined. No events overnight. Patient denies anymore urinary frequency or dysuria. Reports tube feeds have been causing her discomfort, crampy abdominal pain and diarrhea and she refused tube feeds last night. Objective - Vital Signs/Intake and Output Vital Signs (last 24 hours): Temp Pulse Resp BP Pulse Ox 97.1 F L 91 H 18 99/67 L 94 L 11/26/17 17:20 11/26/17 17:20 11/26/17 17:20 11/26/17 17:20 11/26/17 17:20 - Medications Medications: Current Medications Acetaminophen (Tylenol 160mg/5ml Oral Soln) 320 mg PO Q4 PRN PRN Reason: Pain, Mild (1-3) Last Admin: 11/24/17 17:42 Dose: 320 mg Folic Acid (Folic Acid) 1 mg JT DAILY [facility] Last Admin: 11/26/17 11:34 Dose: 1 mg Piperacillin Sod/Tazobactam Sod (Zosyn 3.375 In Ns 100ml) 100 mls @ 25 mls/hr IVPB Q8 [facility]; Protocol Stop: 11/27/17 01:59 Last Admin: 11/26/17 14:34 Dose: Not Given Potassium Chloride 30 meq/ (Sodium Chloride) 1,015 mls @ 40 mls/hr IV .Q24H [facility] Ipratropium [place] (Atrovent) 0.5 mg IH [id number] [facility] Last Admin: 11/26/17 16:36 Dose: 0.5 mg Lidocaine (Lidoderm) 1 ea TD DAILY [facility] Last Admin: 11/26/17 11:35 Dose: 1 ea Nystatin (Nystop Topical Powder) 0 gm TOP BID [facility] Last Admin: 11/25/17 17:38 Dose: Not Given Nystatin (Nystatin Oral Susp) 5 ml PO QID [facility] Last Admin: 11/26/17 14:38 Dose: 5 ml Pantoprazole Sodium (Protonix Inj) 20 mg IVP Q12 [facility] Last Admin: 11/26/17 11:34 Dose: 20 mg Prednisone (Prednisone Tab) 20 mg PO DAILY [facility] Last Admin: 11/26/17 11:34 Dose: 20 mg Scopolamine (Transderm-Scop) 1 patch TD Q3D [facility] Last Admin: 11/25/17 17:38 Dose: 1 patch Tramadol HCl (Ultram) 50 mg GT TID PRN PRN Reason: Pain, moderate (4-7) Last Admin: 11/26/17 13:10 Dose: 50 mg - Labs Labs: 11/26/17 07:00 11/26/17 07:00 PT 11.6 SECONDS (9.4-12.5) 11/11/17 04:30 INR 1.02 11/11/17 04:30 APTT 26.9 Seconds (25.1-36.5) 11/11/17 04:30 - Head Exam Head Exam: ATRAUMATIC, NORMAL INSPECTION, NORMOCEPHALIC - Eye Exam Eye Exam: EOMI - ENT Exam ENT Exam: Mucous Membranes Moist - Neck Exam Neck Exam: Full ROM - Respiratory Exam Respiratory Exam: Clear to Ausculation Bilateral, NORMAL BREATHING PATTERN. absent: Wheezes, Respiratory Distress, Stridor - Cardiovascular Exam Cardiovascular Exam: RRR, +S1, +S2. absent: Diastolic murmur, Murmur - GI/Abdominal Exam GI & Abdominal Exam: Soft, Normal Bowel Sounds Additional comments: J tube in place, mild tenderness to palpation - Extremities Exam Extremities Exam: Full ROM, Normal Inspection - Neurological Exam Neurological Exam: Alert, Awake, Oriented x3 - Psychiatric Exam Psychiatric exam: Normal Affect, Normal Mood - Skin Skin Exam: Dry, Normal Color, Warm Assessment and Plan - Assessment and Plan (Free Text) Assessment: Pt is a 52 yo female with a PMH of alcohol abuse and cirrhosis, who was admitted for evaluation and treatment of hematemesis. 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 Patient is kept NPO and is s/p jejunostomy tube insertion. Pt received 8 sessions of radiation to day. (started 11/16). Pt is willing to consent to cetuximab tx for her cancer. Hem/onc will get ID on board to manage abx while on chemo. Plan: Hematemesis, Dysphagia, secondary to squamous cell carcinoma - Bolus tube feeds during day for nutrition optimization, - pt reports discomfort with tube feeds, medical review coordinator contacted for recommendations on optimal tubing, recommends 2 cans bolus with lunch and dinner and 60ml/hr infusion at night. Additional prostat BID - continue tramadol for pain - Pt needs to be consented for cetuximab treatment, will begin tx per hem/onc, Dr. Weller - radiation oncology, Dr. Carrero following; Pt started radiation therapy on 11/16 (M-F daily), Received 9 sessions to date. She will need 35 sessions total, to end on 01/05. - Pulm, Dr. Tilley following, pt on aspiration precautions, inhaled bronchodil ator for upper airway secretions - on oral prednisone 20 mg, continue to taper - Palliative care following - ENT, Dr. Ren consulted - home health, social work consulted, pt most likely will need subacute rehab Sepsis 2/2 UTI - HR 134 - UA (11/23) positive for nitrites, leukocyte esterase, protein and blood, repeat UA (11/25) negative - blood cultures negative x24hrs - urine cultures: multiple species, will not repeat as patient completed 2 days IV zosyn 3.375gm q8, repeat UA negative - pt had two episodes of diarrhea and one episode of tachycardia off abx - EKG: sinus tachycardia with occasional premature ventricular complexes - restarted IV zosyn Hypotension - Baseline is in 90s systolic - BP has been fluctuating between 85-115 systolic, 54-75 diastolic - pt on remote tele - Nephro, Dr. Whyte consulted, will continue pt on IV fluids until BP stabilizes Liver cirrhosis - CT abdomen: cirrhotic liver, no acute findings - GI, Dr. Herrera consulted for safety of Cetuximab in cirrhotic patient, agree with starting pt on cetuximab Thrombocytopenia - plt downtrending 121-->114--> 104-->85 - likely due to sequestration from cirrhosis as well as bone marrow suppression - will montior and supplement with FFP and plts prior to any procedure. - Hem/onc and GI following Anemia - Hgb 10.2, chronic, stable - continue to monitor Hypomagnesemia - Mg 1.6 - Replete and recheck Alcohol Abuse, Anxiety - continue Ativan 1 q6 PRN anxiety - aspiration, fall, and seizure precautions - advised on cessation Ppx - SCD - protonix Pt seen, examined, assessment and plan discussed with Dr Rob Ferrer PGY1 Internal Medicine Resident <Aden Rivas - Last Filed: 11/28/17 13:14> Objective - Vital Signs/Intake and Output Vital Signs (last 24 hours): Temp Pulse Resp BP Pulse Ox 97.5 F L 127 H 20 90/51 L 98 11/28/17 08:58 11/28/17 10:00 11/28/17 08:58 11/28/17 08:58 11/28/17 08:58 Intake and Output: 11/28/17 11/28/17 06:59 18:59 Intake Total 2000 Output Total 700 Balance 1300 - Medications Medications: Current Medications Acetaminophen (Tylenol 160mg/5ml Oral Soln) 320 mg PO Q4 PRN PRN Reason: Pain, Mild (1-3) Last Admin: 11/24/17 17:42 Dose: 320 mg Folic Acid (Folic Acid) 1 mg JT DAILY [facility] Last Admin: 11/28/17 09:09 Dose: 1 mg Potassium Chloride 30 meq/ (Sodium Chloride) 1,015 mls @ 40 mls/hr IV .Q24H [facility] Last Admin: 11/28/17 05:33 Dose: 40 mls/hr Ipratropium [place] (Atrovent) 0.5 mg IH [id number] [facility] Last Admin: 11/28/17 11:07 Dose: 0.5 mg Nystatin (Nystop Topical Powder) 0 gm TOP BID [facility] Last Admin: 11/27/17 10:49 Dose: Not Given Nystatin (Nystatin Oral Susp) 5 ml PO QID [facility] Last Admin: 11/28/17 09:09 Dose: 5 ml Pantoprazole Sodium (Protonix Inj) 20 mg IVP Q12 [facility] Last Admin: 11/28/17 09:09 Dose: 20 mg Prednisone (Prednisone Tab) 10 mg PO DAILY [facility] Last Admin: 11/28/17 09:09 Dose: 10 mg Scopolamine (Transderm-Scop) 1 patch TD Q3D [facility] Last Admin: 11/25/17 17:38 Dose: 1 patch Tramadol HCl (Ultram) 50 mg GT TID PRN PRN Reason: Pain, moderate (4-7) Last Admin: 11/26/17 13:10 Dose: 50 mg - Labs Labs: 11/28/17 08:00 11/28/17 08:00 PT 11.6 SECONDS (9.4-12.5) 11/11/17 04:30 INR 1.02 11/11/17 04:30 APTT 26.9 Seconds (25.1-36.5) 11/11/17 04:30 Attending/Attestation - Attestation I have personally seen and examined this patient.: Yes I have fully participated in the care of the patient.: Yes I have reviewed all pertinent clinical information, including history, physical exam and plan: Yes Notes (Text): 11/28/17 13:14 Medical record note made by the resident after discussion with my direction and input after the patient was personally seen and examined by me. I have reviewed the chart and agree that the record accurately reflects by personal performance of the history, physical exam, data review, and medical decision-making, in the course for the patient. I have also personally directed the plan of care.
[2017-11-26] MEDS: Nystatin 100,000 Units/gm Topical Pow(15 gm) TOP SCH ×2 (18:24→18:38)
[2017-11-26] MEDS: Potassium Chloride 30 MEQ in Sodium Chloride 0.9% 1,000 ML IV SCH (18:46)
[2017-11-26 22:08] LABS: URINE BILIRUBIN NEGATIVE (NEGATIVE); URINE BLOOD NEGATIVE (NEGATIVE); URINE GLUCOSE (UA) NEGATIVE (NEGATIVE); URINE LEUKOCYTE ESTERASE NEGATIVE Leu/uL (NEGATIVE); URINE PROTEIN NEGATIVE mg/dL (<30 mg/dL); URINE UROBILINOGEN 0.2 E.U./dL (<1 E.U./dL)
[2017-11-26 22:09] LABS: URINE APPEARANCE CLEAR (CLEAR); URINE COLOR YELLOW (YELLOW)
--- NOTE | 2017-11-27 04:04 | CON ---
DATE: 11/26/2017 The patient is seen earlier today in 372, bed 2. CHIEF COMPLAINT: Weakness since several days. HISTORY OF PRESENT ILLNESS: This is a 52-year-old female with past medical history significant for liver cirrhosis, alcohol abuse, anxiety, depression, who is admitted through the emergency room on this admission on 11/03/2017, with a diagnosis of hematemesis. The patient has had a long hospital stay, and the patient now continues to complain of weakness and nausea is resolved. REVIEW OF SYSTEMS: Reveals no fevers. No chills and cough. The patient does have a squamous cell carcinoma, toe area.. She has a gastrostomy tube. The patient has complained of generalized weakness, aches, and pains. PAST MEDICAL HISTORY: Significant for squamous cell carcinoma of the subcollateral area, cirrhosis, anemia, alcohol abuse, anxiety, depression, and rheumatoid arthritis. PAST SURGICAL HISTORY: Significant for gastrostomy tube placement. ALLERGIES: THE PATIENT HAS NO KNOWN ALLERGIES. CURRENT MEDICATIONS: Reveals the patient to be off of antibiotics. PHYSICAL EXAMINATION: On exam, the patient's temperature is 97, heart rate of 92, respiratory rate of 19, blood pressure is 100/60. Examination of HEENT is unremarkable. Neck is supple. Lungs have decreased breath sounds. Heart exam, normal S1, S2. Abdomen examination is soft, nontender. Laboratory examination reveals a white count of 4.4, hemoglobin of 10, and the chemistries are noted, BUN of 13, creatinine of 0.4. Urinalysis is noted. Toxicology is noted. Serology reveals HIV is negative. Hepatitis profile is negative. Blood cultures are negative. Urine cultures have multiple organisms, and the patient had an echo. Results are noted. 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 At this time, negative fevers, negative white count, and no evidence of infection. Dr. Cleveland's note is reviewed.. 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 The patient is at risk for developing nosocomial infections. We will keep the patient off antibiotics. Thus far, the cultures have been negative. She is at risk for developing nosocomial infections. Yunior MD [facility] # [id number]
--- NOTE | 2017-11-27 04:09 | PN ---
DATE: 11/26/2017 PULMONARY PROGRESS NOTE REFERRING PHYSICIAN: Dr. Rivas. SUBJECTIVE: She is lying in the bed, head at 45 degrees. Night was unremarkable. Feels better. Decreased cough and shortness of breath. No more hemoptysis. No abdominal pain. Had one or two diarrhea today. No leg pain or leg swelling. OBJECTIVE: GENERAL: In no acute distress. VITAL SIGNS: Temperature is 98, heart rate is 77, respiratory rate is 18, blood pressure 99/67, pulse ox 94% on nasal cannula. HEENT: Moist mucous membrane. No ulcer or thrush. NECK: Supple. No JVD. LUNGS: Have a fair airflow with rhonchi. HEART: S1 and S2. ABDOMEN: Soft, nontender, no organomegaly. G-tube area looks okay. EXTREMITIES: There is no edema. NEUROLOGICAL: Awake and alert. Follows simple command. MEDICATIONS: She is on Atrovent 0.5 mg every 4 hours, folic acid 1 mg daily, lidocaine daily, nystatin oral suspension 5 mL four times a day, potassium is being given IV, prednisone 20 mg daily, Protonix 20 mg every 12 hours, scopolamine patch every 3 days, Tylenol p.r.n., Ultram every 8 hours p.r.n., Zosyn 3.375 g every 8 hours. LABORATORY DATA: Shows hemoglobin 10, hematocrit 32.3, WBC 4.4, platelet count is 85. Sodium 139, potassium 3.6, chloride 108, bicarbonate 28, BUN 13, creatinine 0.4, glucose 81, calcium is 7.8, AST 25, ALT 31, alk phos is 52, albumin is 2.2. Her EKG done today, which shows tachycardia, which is a sinus rhythm. IMPRESSION AND PLAN: Squamous cell carcinoma with subglottal area involvement, oropharyngeal dysphagia, has a gastrostomy tube, malnutrition, probably aspiration related bronchitis, cirrhotic liver, history of alcohol abuse, thrombocytopenia. Pulmonary point of view, she is doing much better. No more hemoptysis. Pulmonary excretion improved. Continue antibiotics as per Infectious Disease. Gastric prophylaxis. Deep venous thrombosis prophylaxis. Aspiration precaution. We will suggest decreasing prednisone to 10 mg daily. May need to send stool for Clostridium difficile toxin, also need dietitian consult, may need to change the G-tube feeding formula. Thank you and we will follow with you. Aden Tilley MD [facility] # [id number]
[2017-11-27] MEDS: Ipratropium 0.02% Inhal Soln (0.5 mg/2.5 ml) UD IH SCH ×5 (04:35→20:01)
[2017-11-27 07:43] LABS: ALB/GLOB RATIO 0.9 (1.1-1.8); ALBUMIN 2.3 g/dL (3.0-4.8); ALT/SGPT 31 U/L (7-56); AST/SGOT 26 U/L (14-36); BLOOD UREA NITROGEN 9 mg/dL (7-21); CALCIUM 7.9 mg/dL (8.4-10.5); GFR NON-AFRICAN AMERICAN > 60
[2017-11-27 07:45] LABS: BASO # 0.01 K/mm3 (0.0-2.0); BASO % 0.2 % (0.0-3.0); EOS # 0.1 (0.0-0.7); EOS % 1.3 % (1.5-5.0); GRAN # 3.73 (1.4-6.5); GRAN % 80.6 % (50.0-68.0); HEMOGLOBIN 10.4 g/dL (12.0-16.0); LYMPH # 0.6 (1.2-3.4); LYMPH % 11.9 % (22.0-35.0); MEAN CELL VOLUME 98.5 fl (80.0-105.0); MEAN CORPUSCULAR HEMOGLOBIN 32.1 pg (25.0-35.0); MEAN CORPUSCULAR HGB CONC 32.6 g/dl (31.0-37.0); MEAN PLATELET VOLUME 11.3 fl (7.0-11.0); MONO # 0.3 (0.1-0.6); RBC 3.24 10^6/uL (3.5-6.1); RED CELL DISTRIBUTION WIDTH 15.5 % (11.5-14.5); WHITE BLOOD COUNT 4.6 10^3/ul (4.5-11.0)
[2017-11-27] MEDS ORDERED: Piperacillin/Tazobact 3.375 gm 100 ML IVPB SCH (08:00)
[2017-11-27] MEDS: Nystatin 100,000 Units/ml Oral Susp 5 ml UD PO SCH ×4 (10:46→21:18)
[2017-11-27] MEDS: Lidocaine 5% Patch TD SCH (10:47)
[2017-11-27] MEDS: Nystatin 100,000 Units/gm Topical Pow(15 gm) TOP SCH (10:49)
--- NOTE | 2017-11-27 14:01 | CP.PCM.PN ---
<Torito Ferrer - Last Filed: 11/27/17 14:10> Subjective - Date & Time of Evaluation Date of Evaluation: 11/27/17 Time of Evaluation: 07:00 - Subjective Subjective: Pt seen and examined, pt denies chest pain, SOB. Objective - Vital Signs/Intake and Output Vital Signs (last 24 hours): Temp Pulse Resp BP Pulse Ox 98.8 F 77 20 94/61 L 98 11/27/17 06:00 11/27/17 06:00 11/27/17 06:00 11/27/17 06:00 11/27/17 06:00 Intake and Output: 11/27/17 11/27/17 06:59 18:59 Intake Total 600 Balance 600 - Medications Medications: Current Medications Acetaminophen (Tylenol 160mg/5ml Oral Soln) 320 mg PO Q4 PRN PRN Reason: Pain, Mild (1-3) Last Admin: 11/24/17 17:42 Dose: 320 mg Folic Acid (Folic Acid) 1 mg JT DAILY [facility] Last Admin: 11/27/17 10:46 Dose: 1 mg Potassium Chloride 30 meq/ (Sodium Chloride) 1,015 mls @ 40 mls/hr IV .Q24H [facility] Last Admin: 11/26/17 18:46 Dose: 40 mls/hr Ipratropium [place] (Atrovent) 0.5 mg IH [id number] [facility] Last Admin: 11/27/17 11:00 Dose: 0.5 mg Lidocaine (Lidoderm) 1 ea TD DAILY [facility] Last Admin: 11/27/17 10:47 Dose: 1 ea Nystatin (Nystop Topical Powder) 0 gm TOP BID [facility] Last Admin: 11/27/17 10:49 Dose: Not Given Nystatin (Nystatin Oral Susp) 5 ml PO QID [facility] Last Admin: 11/27/17 13:44 Dose: 5 ml Pantoprazole Sodium (Protonix Inj) 20 mg IVP Q12 [facility] Last Admin: 11/27/17 10:47 Dose: 20 mg Prednisone (Prednisone Tab) 10 mg PO DAILY [facility] Last Admin: 11/27/17 10:46 Dose: 10 mg Scopolamine (Transderm-Scop) 1 patch TD Q3D [facility] Last Admin: 11/25/17 17:38 Dose: 1 patch Tramadol HCl (Ultram) 50 mg GT TID PRN PRN Reason: Pain, moderate (4-7) Last Admin: 11/26/17 13:10 Dose: 50 mg - Labs Labs: 11/27/17 06:00 11/27/17 06:00 PT 11.6 SECONDS (9.4-12.5) 11/11/17 04:30 INR 1.02 11/11/17 04:30 APTT 26.9 Seconds (25.1-36.5) 11/11/17 04:30 - Constitutional Appears: Non-toxic, No Acute Distress - Head Exam Head Exam: ATRAUMATIC, NORMAL INSPECTION, NORMOCEPHALIC - Eye Exam Eye Exam: EOMI - ENT Exam ENT Exam: Mucous Membranes Moist - Respiratory Exam Respiratory Exam: Clear to Ausculation Bilateral, NORMAL BREATHING PATTERN. absent: Accessory Muscle Use - Cardiovascular Exam Cardiovascular Exam: RRR, +S1, +S2 - GI/Abdominal Exam GI & Abdominal Exam: Soft, Normal Bowel Sounds Additional comments: J tube in place, mild tenderness to palpation - Extremities Exam Extremities Exam: Full ROM. absent: Calf Tenderness, Pedal Edema - Neurological Exam Neurological Exam: Alert, Awake, Oriented x3 - Psychiatric Exam Psychiatric exam: Normal Mood - Skin Skin Exam: Dry, Normal Color, Warm Assessment and Plan - Assessment and Plan (Free Text) Assessment: Pt is a 52 yo female with a PMH of alcohol abuse and cirrhosis, who was admitted for evaluation and treatment of hematemesis. 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 Patient is kept NPO and is s/p jejunostomy tube insertion. Pt received 8 sessions of radiation to day. (started 11/16). Pt is willing to consent to cetuximab tx for her cancer. Plan: Hematemesis, Dysphagia, secondary to squamous cell carcinoma - Bolus tube feeds during day for nutrition optimization - cans on optimal tubing, recommends 2 cans bolus with lunch and dinner and 60ml/hr infusion at night. Additional prostat BID - continue tramadol for pain - Pt gives oral consented for cetuximab treatment, states she will sign the written agreement will begin tx per hem/onc, Dr. Weller - radiation oncology, Dr. Carrero following; Pt started radiation therapy on 11/16 (M-F daily), She will need 35 sessions total, to end on 01/05. - Pulm, Dr. Tilley following, pt on aspiration precautions, inhaled bronchodilator for upper airway secretions - Oral prednisone 10 mg, continue to taper - Palliative care following - ENT, Dr. Ren consulted - home health, social work consulted, pt most likely will need subacute rehab Sepsis 2/2 UTI - UA (11/23) positive for nitrites, leukocyte esterase, protein and blood, repeat UA (11/25) negative - blood cultures negative, urine cultures: multiple species - discontinue zosyn Hypotension - Baseline is in 90s systolic - BP has been fluctuating between 85-115 systolic, 54-75 diastolic - pt on remote tele - Nephro, Dr. Whtye consulted, will continue pt on IV fluids until BP stabilizes Liver cirrhosis - CT abdomen: cirrhotic liver, no acute findings - GI, Dr. Herrera consulted for safety of Cetuximab in cirrhotic patient, agree with starting pt on cetuximab Thrombocytopenia - likely due to sequestration from cirrhosis as well as bone marrow suppression - Hem/onc and GI following Anemia - Hgb 10, chronic, stable - continue to monitor Hypomagnesemia - Mg 1.9 - Replete and recheck Alcohol Abuse, Anxiety - continue Ativan 1 q6 PRN anxiety - aspiration, fall, and seizure precautions - advised on cessation Ppx - SCD - protonix Pt seen, examined, assessment and plan discussed with Dr Rob Ferrer PGY1 <Aden Rivas - Last Filed: 11/28/17 13:14> Objective - Vital Signs/Intake and Output Vital Signs (last 24 hours): Temp Pulse Resp BP Pulse Ox 97.5 F L 127 H 20 90/51 L 98 11/28/17 08:58 11/28/17 10:00 11/28/17 08:58 11/28/17 08:58 11/28/17 08:58 Intake and Output: 11/28/17 11/28/17 06:59 18:59 Intake Total 2000 Output Total 700 Balance 1300 - Medications Medications: Current Medications Acetaminophen (Tylenol 160mg/5ml Oral Soln) 320 mg PO Q4 PRN PRN Reason: Pain, Mild (1-3) Last Admin: 11/24/17 17:42 Dose: 320 mg Folic Acid (Folic Acid) 1 mg JT DAILY [facility] Last Admin: 11/28/17 09:09 Dose: 1 mg Potassium Chloride 30 meq/ (Sodium Chloride) 1,015 mls @ 40 mls/hr IV .Q24H [facility] Last Admin: 11/28/17 05:33 Dose: 40 mls/hr Ipratropium [place] (Atrovent) 0.5 mg IH [id number] [facility] Last Admin: 11/28/17 11:07 Dose: 0.5 mg Nystatin (Nystop Topical Powder) 0 gm TOP BID [facility] Last Admin: 11/27/17 10:49 Dose: Not Given Nystatin (Nystatin Oral Susp) 5 ml PO QID [facility] Last Admin: 11/28/17 09:09 Dose: 5 ml Pantoprazole Sodium (Protonix Inj) 20 mg IVP Q12 [facility] Last Admin: 11/28/17 09:09 Dose: 20 mg Prednisone (Prednisone Tab) 10 mg PO DAILY [facility] Last Admin: 11/28/17 09:09 Dose: 10 mg Scopolamine (Transderm-Scop) 1 patch TD Q3D [facility] Last Admin: 11/25/17 17:38 Dose: 1 patch Tramadol HCl (Ultram) 50 mg GT TID PRN PRN Reason: Pain, moderate (4-7) Last Admin: 11/26/17 13:10 Dose: 50 mg - Labs Labs: 11/28/17 08:00 11/28/17 08:00 PT 11.6 SECONDS (9.4-12.5) 11/11/17 04:30 INR 1.02 11/11/17 04:30 APTT 26.9 Seconds (25.1-36.5) 11/11/17 04:30 Attending/Attestation - Attestation I have personally seen and examined this patient.: Yes I have fully participated in the care of the patient.: Yes I have reviewed all pertinent clinical information, including history, physical exam and plan: Yes Notes (Text): 11/28/17 13:14 Medical record note made by the resident after discussion with my direction and input after the patient was personally seen and examined by me. I have reviewed the chart and agree that the record accurately reflects by personal performance of the history, physical exam, data review, and medical decision-making, in the course for the patient. I have also personally directed the plan of care.
--- NOTE | 2017-11-27 19:35 | PN ---
DATE: 11/27/2017 SUBJECTIVE: The patient is in bed, in no acute distress, nontoxic. PHYSICAL EXAMINATION: VITAL SIGNS: On exam, temperature is 98, blood pressure is 94/60, respiratory rate of 20. HEENT: Examination of HEENT is unremarkable. NECK: Supple. LUNGS: Have decreased breath sounds. HEART: Normal S1 and S2. ABDOMEN: Soft. LABORATORY DATA: Laboratory examination reveals the white count is 4.6, hemoglobin of 10, platelets of 82. BUN of 9, creatinine of 0.5. Serology: HIV is negative. Microbiology reveals the urine cultures negative, blood cultures are negative. C. diff antigen and toxin are negative. Review of orders reveals the patient to be off of antibiotics. ASSESSMENT AND PLAN: A 52-year-old female with liver cirrhosis, alcohol abuse, anxiety, depression, squamous cell cancer of the subglottal area in the larynx, cancer. Currently, now off of antibiotics, afebrile. The patient was found to have fungating or ulcerative mass in the hypopharynx and found to be squamous cell carcinoma on biopsy. The patient is at risk for developing nosocomial infections. Yunior Hdz MD
--- NOTE | 2017-11-28 00:01 | PN ---
DATE: 11/27/2017 PULMONARY PROGRESS NOTE REFERRING PHYSICIAN: Dr. Rivas. SUBJECTIVE: The patient is lying in the bed, head at 45 degrees. Still has some cough and blood-tinged sputum today. No more diarrhea. No vomiting. No abdominal pain. No leg pain or leg swelling. OBJECTIVE: GENERAL: No acute distress. VITAL SIGNS: Temperature is 98, heart rate 84, respiratory rate is 20, blood pressure 98/59, pulse ox 93% on room air. HEENT: Moist mucous membrane. Crowded airway. NECK: Supple. No JVD. LUNGS: Have a fair airflow with rhonchi. HEART: S1, S2. ABDOMEN: Soft, nontender, no organomegaly. G-tube area looks okay. EXTREMITIES: There is no edema. NEUROLOGIC: Awake, alert, follows simple command. MEDICATIONS: She is on Atrovent 0.4 mg every 4 hours, folic acid 1 mg daily, lidocaine to affected area, nystatin oral 5 mL 4 times daily, nystatin topical twice a day, IV fluid with potassium 40 mL/hour, prednisone 10 mg daily, Protonix 20 mg twice a day, scopolamine patch every 3 days, Tylenol p.r.n. basis, Ultram 50 mg 3 times a day p.r.n. LABORATORY DATA: Shows hemoglobin 10.4, hematocrit 31.9, WBC 4.6, platelet count is 82. Sodium 138, potassium 3.6, chloride 107, bicarbonate 28, BUN 9, creatinine 0.5, glucose is 73, calcium 7.9, phosphorus 3.9, magnesium 1.9, AST 26, ALT 31, alk phos is 53. Albumin 2.3. Stool for C. Diff is negative. IMPRESSION AND PLAN: Squamous cell carcinoma with glottal area involved, been on radiation therapy, has acute pharyngitis, laryngitis with bloody secretion, cirrhotic liver, history of alcohol abuse, thrombocytopenia. Pulmonary point of view, doing okay. Continue bronchodilator, antibiotics as per Infectious Diseases. Radiation oncology followup. Gastric prophylaxis. Sequential compression devices to lower extremity, out of bed to chair, physical therapy. Thank you and we will follow with you. Aden Tilley MD
[2017-11-28] MEDS: Ipratropium 0.02% Inhal Soln (0.5 mg/2.5 ml) UD IH SCH ×6 (00:05→20:09)
[2017-11-28] MEDS: Potassium Chloride 30 MEQ in Sodium Chloride 0.9% 1,000 ML IV SCH (05:33)
[2017-11-28 08:20] LABS: EOS # 0.1 (0.0-0.7); EOS % 0.8 % (1.5-5.0); GRAN # 7.57 (1.4-6.5); GRAN % 86.7 % (50.0-68.0); HEMOGLOBIN 11.6 g/dL (12.0-16.0); LYMPH # 0.7 (1.2-3.4); LYMPH % 7.8 % (22.0-35.0); MEAN CELL VOLUME 97.8 fl (80.0-105.0); MEAN CORPUSCULAR HEMOGLOBIN 31.9 pg (25.0-35.0); MEAN CORPUSCULAR HGB CONC 32.6 g/dl (31.0-37.0); MEAN PLATELET VOLUME 11.2 fl (7.0-11.0); MONO # 0.4 (0.1-0.6); MONO % 4.7 % (1.0-6.0); RBC 3.64 10^6/uL (3.5-6.1); RED CELL DISTRIBUTION WIDTH 15.5 % (11.5-14.5); WHITE BLOOD COUNT 8.7 10^3/ul (4.5-11.0)
[2017-11-28 08:41] LABS: ALB/GLOB RATIO 0.9 (1.1-1.8); ALBUMIN 2.7 g/dL (3.0-4.8); ALT/SGPT 26 U/L (7-56); AST/SGOT 23 U/L (14-36); BLOOD UREA NITROGEN 10 mg/dL (7-21); GFR NON-AFRICAN AMERICAN > 60
[2017-11-28] MEDS: Nystatin 100,000 Units/ml Oral Susp 5 ml UD PO SCH ×4 (09:09→21:16)
[2017-11-28] MEDS: Lidocaine 5% Patch TD SCH (09:09)
--- NOTE | 2017-11-28 12:48 | CP.PCM.PN ---
<Everton,Blanca - Last Filed: 11/28/17 12:48> Subjective - Date & Time of Evaluation Date of Evaluation: 11/28/17 Time of Evaluation: 10:45 - Subjective Subjective: PGY-1 Medicine Progress Note for Dr. Rivas's service Patient seen and examined at bedside. Patient reports diarrhea but denies fevers, chills, abd pain, chest pain, sob, n/v, constipation, hematemesis, dysuria, headaches, lightheadedness, dizziness. Objective - Vital Signs/Intake and Output Vital Signs (last 24 hours): Temp Pulse Resp BP Pulse Ox 97.5 F L 127 H 20 90/51 L 98 11/28/17 08:58 11/28/17 10:00 11/28/17 08:58 11/28/17 08:58 11/28/17 08:58 Intake and Output: 11/28/17 11/28/17 06:59 18:59 Intake Total 2000 Output Total 700 Balance 1300 - Medications Medications: Current Medications Acetaminophen (Tylenol 160mg/5ml Oral Soln) 320 mg PO Q4 PRN PRN Reason: Pain, Mild (1-3) Last Admin: 11/24/17 17:42 Dose: 320 mg Folic Acid (Folic Acid) 1 mg JT DAILY [facility] Last Admin: 11/28/17 09:09 Dose: 1 mg Potassium Chloride 30 meq/ (Sodium Chloride) 1,015 mls @ 40 mls/hr IV .Q24H [facility] Last Admin: 11/28/17 05:33 Dose: 40 mls/hr Ipratropium [place] (Atrovent) 0.5 mg IH [id number] [facility] Last Admin: 11/28/17 11:07 Dose: 0.5 mg Nystatin (Nystop Topical Powder) 0 gm TOP BID [facility] Last Admin: 11/27/17 10:49 Dose: Not Given Nystatin (Nystatin Oral Susp) 5 ml PO QID [facility] Last Admin: 11/28/17 09:09 Dose: 5 ml Pantoprazole Sodium (Protonix Inj) 20 mg IVP Q12 [facility] Last Admin: 11/28/17 09:09 Dose: 20 mg Prednisone (Prednisone Tab) 10 mg PO DAILY [facility] Last Admin: 11/28/17 09:09 Dose: 10 mg Scopolamine (Transderm-Scop) 1 patch TD Q3D [facility] Last Admin: 11/25/17 17:38 Dose: 1 patch Tramadol HCl (Ultram) 50 mg GT TID PRN PRN Reason: Pain, moderate (4-7) Last Admin: 11/26/17 13:10 Dose: 50 mg - Labs Labs: 11/28/17 08:00 11/28/17 08:00 PT 11.6 SECONDS (9.4-12.5) 11/11/17 04:30 INR 1.02 11/11/17 04:30 APTT 26.9 Seconds (25.1-36.5) 11/11/17 04:30 - Constitutional Appears: Non-toxic, No Acute Distress - Head Exam Head Exam: NORMAL INSPECTION, NORMOCEPHALIC - Eye Exam Eye Exam: EOMI, Normal appearance. absent: Nystagmus, Scleral icterus - ENT Exam ENT Exam: Mucous Membranes Moist - Respiratory Exam Respiratory Exam: Clear to Ausculation Bilateral, NORMAL BREATHING PATTERN. absent: Chest Wall Tenderness, Decreased Breath Sounds, Rhonchi, Wheezes - Cardiovascular Exam Cardiovascular Exam: REGULAR RHYTHM, +S1, +S2. absent: Tachycardia, Murmur - GI/Abdominal Exam GI & Abdominal Exam: Soft, Normal Bowel Sounds Additional comments: PEG tube in place - Extremities Exam Extremities Exam: Normal Inspection. absent: Calf Tenderness, Pedal Edema - Neurological Exam Neurological Exam: Alert, Awake, Oriented x3 - Psychiatric Exam Psychiatric exam: Normal Affect, Normal Mood - Skin Skin Exam: Intact, Normal Color Assessment and Plan - Assessment and Plan (Free Text) Assessment: Pt is a 52 yo female with a PMH of alcohol abuse and cirrhosis, who was admitted for evaluation and treatment of hematemesis. 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 Patient is kept NPO and is s/p jejunostomy tube insertion. Pt received 8 sessions of radiation to day. (started 11/16). Pt is willing to consent to cetuximab tx for her cancer. Patient will need tube feeds setup for home with case management team. Patient will have chemo continued outpatient with Dr. Cleveland. Plan: Hematemesis, Dysphagia, secondary to squamous cell carcinoma Radiation Oncology- Dr. Carrero - started radiation therapy on 11/16 (M-F daily), She will need 35 sessions total, to end on 01/05. Pulm Consulted- Dr. Tilley- on aspiration precautions, inhaled bronchodilator for upper airway secretions Oncology consulted- Dr. Cleveland- On Cetuximab; further sessions as per Dr. Cleveland ENT, Dr. Ren consulted- biopsy showed SCC Bolus tube feeds during day for nutrition optimization- 40 rate cans on optimal tubing, recommends 2 cans bolus with lunch and dinner and 60ml/hr infusion at night. Additional prostat BID Tramadol 50mg GT tube Oral prednisone 10 mg, continue to taper Home health, social work consulted, pt most likely will need subacute rehab Sepsis 2/2 UTI Resolved after treatment with zosyn Hypotension Baseline is in 90s systolic pt on remote tele Liver cirrhosis CT abdomen: cirrhotic liver, no acute findings GI, Dr. Herrera consulted for safety of Cetuximab in cirrhotic patient, agree with starting pt on cetuximab Thrombocytopenia Stable; no active bleeding likely due to sequestration from cirrhosis as well as bone marrow suppression Hem/onc and GI following Anemia H&H stable Hemodynamically stable Hypomagnesemia resolved Alcohol Abuse, Anxiety Ativan 1 q6 PRN anxiety aspiration, fall, and seizure precautions Educated on cessation PPX DVT ppx- SCDs GI ppx- Protonix 20mg IVP q12 Dispostion: Case management team needs to setup tube feeds at home for planned d ischarge on Thursday Medical Management discussed with Dr. Rivas PGY-1 Blanca Toscano <Aden Rivas - Last Filed: 11/28/17 13:13> Objective - Vital Signs/Intake and Output Vital Signs (last 24 hours): Temp Pulse Resp BP Pulse Ox 97.5 F L 127 H 20 90/51 L 98 11/28/17 08:58 11/28/17 10:00 11/28/17 08:58 11/28/17 08:58 11/28/17 08:58 Intake and Output: 11/28/17 11/28/17 06:59 18:59 Intake Total 2000 Output Total 700 Balance 1300 - Medications Medications: Current Medications Acetaminophen (Tylenol 160mg/5ml Oral Soln) 320 mg PO Q4 PRN PRN Reason: Pain, Mild (1-3) Last Admin: 11/24/17 17:42 Dose: 320 mg Folic Acid (Folic Acid) 1 mg JT DAILY [facility] Last Admin: 11/28/17 09:09 Dose: 1 mg Potassium Chloride 30 meq/ (Sodium Chloride) 1,015 mls @ 40 mls/hr IV .Q24H [facility] Last Admin: 11/28/17 05:33 Dose: 40 mls/hr Ipratropium [place] (Atrovent) 0.5 mg IH [id number] [facility] Last Admin: 11/28/17 11:07 Dose: 0.5 mg Nystatin (Nystop Topical Powder) 0 gm TOP BID [facility] Last Admin: 11/27/17 10:49 Dose: Not Given Nystatin (Nystatin Oral Susp) 5 ml PO QID [facility] Last Admin: 11/28/17 09:09 Dose: 5 ml Pantoprazole Sodium (Protonix Inj) 20 mg IVP Q12 [facility] Last Admin: 11/28/17 09:09 Dose: 20 mg Prednisone (Prednisone Tab) 10 mg PO DAILY [facility] Last Admin: 11/28/17 09:09 Dose: 10 mg Scopolamine (Transderm-Scop) 1 patch TD Q3D [facility] Last Admin: 11/25/17 17:38 Dose: 1 patch Tramadol HCl (Ultram) 50 mg GT TID PRN PRN Reason: Pain, moderate (4-7) Last Admin: 11/26/17 13:10 Dose: 50 mg - Labs Labs: 11/28/17 08:00 11/28/17 08:00 PT 11.6 SECONDS (9.4-12.5) 11/11/17 04:30 INR 1.02 11/11/17 04:30 APTT 26.9 Seconds (25.1-36.5) 11/11/17 04:30 Attending/Attestation - Attestation I have personally seen and examined this patient.: Yes I have fully participated in the care of the patient.: Yes I have reviewed all pertinent clinical information, including history, physical exam and plan: Yes Notes (Text): 11/28/17 13:11 Medical record note made by the resident after discussion with my direction and input after the patient was personally seen and examined by me. I have reviewed the chart and agree that the record accurately reflects by personal performance of the history, physical exam, data review, and medical decision-making, in the course for the patient. I have also personally directed the plan of care. - 52 year old female with past medical history of alcohol abuse and cirrhosis who presented with hematemesis. She was found to have a large friable mass in the hypopharynx. Biopsy showed squamous cell carcinoma. She is being followed by GI, hematology/oncology and radiation/oncology. She is receiving radiation treatment. She is s/p jejunostomy tube and tolerating feeds. Anemia is stable. Thrombocytopenia is due to chronic liver disease , stable. Tachycardia is resolved.Blood pressure is in 90, close to her base line.Patient is asymptomatic. Sepsis due to UTI, resolved, off antibiotics.Repeat UA is negative Prognosis is guarded.
[2017-11-28] MEDS: Nystatin 100,000 Units/gm Topical Pow(15 gm) TOP SCH ×2 (16:05→18:11)
[2017-11-28] MEDS ORDERED: Loperamide Hydrochloride 1 mg/5 ml Cup PO ONE (18:00)
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
--- NOTE | 2017-11-28 23:43 | PN ---
DATE: 11/28/2017 PULMONARY PROGRESS NOTE REFERRING PHYSICIAN: Aden Rivas MD. SUBJECTIVE: The patient is lying in bed. Still has cough and sputum. No headache, chest pain, nausea, vomiting, leg pain, or leg swelling reported. PHYSICAL EXAMINATION: GENERAL: No acute distress. VITAL SIGNS: Temperature 97.5, pulse 110, blood pressure 90/51, respirations 20, pulse ox 98% on room air. HEENT: Moist mucous membrane. Crowded airway. NECK: Supple. No JVD. SKIN: Generalized redness, throughout the base of the neck. LUNGS: Fair airflow. Few rhonchi. CARDIAC: S1, S2. ABDOMEN: Soft, nontender. G-tube site looks okay. EXTREMITIES: No edema. NEUROLOGIC: Awake, alert, follows commands. LABORATORY DATA: Reviewed. WBC 8.7, hemoglobin 11.6, hematocrit 35.6, platelets 113. Sodium 138, potassium 3.7, chloride 106, carbon dioxide 27, anion gap 9, BUN 10, creatinine 0.4, GFR greater than 60, glucose 110, calcium 8, phosphorus 3.2, magnesium 1.9. Bilirubin 0.5, AST 23, ALT 26, alkaline phosphatase 59, total protein 5.5, albumin 2.7, globulin 2.8, a/g ratio 0.9. MEDICATIONS: Reviewed. No new medications added since yesterday. IMPRESSION AND PLAN: Squamous cell carcinoma with glottal area involved, requiring radiation, has acute pharyngitis, laryngitis with bloody secretion, cirrhotic liver, alcohol abuse, thrombocytopenia. Pulmonary point of view, continue current management., on inhaled bronchodilators, antibiotics as per Infectious Disease, gastric prophylaxis, sequential compression devices to lower extremities. Out of bed to chair. Physical therapy. Radiation oncology followup. This patient was examined by Dr. Tilley and discussed assessment and plan as described above. Thank you for this consult and we will follow with you. Dafne Allen APN Aden Tilley MD [employer]
[2017-11-29] MEDS ORDERED: DiphenhydrAMINE 50 mg/ml Inj IVP ONE ×2 (00:44→21:00)
--- NOTE | 2017-11-29 01:27 | PN ---
DATE: 11/28/2017 SUBJECTIVE: The patient is in bed, in no acute distress, nontoxic. PHYSICAL EXAMINATION: VITAL SIGNS: On exam, temperature is 98, blood pressure is 81/50, respiratory rate 19, heart rate of 95. HEENT: Examination of HEENT is unremarkable. NECK: Supple. LUNGS: Have decreased breath sounds. HEART: Normal S1, S2. ABDOMEN: Soft, nontender. LABORATORY DATA: Laboratory examination reveals a white count of 8.7, hemoglobin of 11, platelets of 113, BUN of 10, creatinine of 0.4. Urinalysis is noted and C. diff antigen and toxin is negative. Blood cultures are negative. Urine cultures are negative. White count is 8.7. Review of orders reveals the patient to be off of antibiotics. The patient is on prednisone. ASSESSMENT AND PLAN: A 52-year-old female with liver cirrhosis, alcohol abuse, anxiety, depression, squamous cell cancer of the subglottal area, larynx cancer. Currently off of antibiotics, afebrile, found to have fungating ulcerated mass in the hypopharynx and squamous cell carcinoma on biopsy. The patient is currently off of antibiotics, afebrile. Normal urinalysis, normal urine culture. The patient is at risk for developing nosocomial infections. Yunior Hdz MD
[2017-11-29] MEDS: Potassium Chloride 30 MEQ in Sodium Chloride 0.9% 1,000 ML IV SCH (05:45)
[2017-11-29 06:30] LABS: BASO # 0.01 K/mm3 (0.0-2.0); BASO % 0.1 % (0.0-3.0); EOS # 0.2 (0.0-0.7); EOS % 2.8 % (1.5-5.0); GRAN % 80.4 % (50.0-68.0); HEMOGLOBIN 10.7 g/dL (12.0-16.0); LYMPH # 0.3 (1.2-3.4); LYMPH % 4.7 % (22.0-35.0); MEAN CELL VOLUME 99.4 fl (80.0-105.0); MEAN CORPUSCULAR HEMOGLOBIN 31.5 pg (25.0-35.0); MEAN CORPUSCULAR HGB CONC 31.7 g/dl (31.0-37.0); MEAN PLATELET VOLUME 11.3 fl (7.0-11.0); MONO # 0.8 (0.1-0.6); PLATELET COUNT 93 10^3/uL (120.0-450.0); RED CELL DISTRIBUTION WIDTH 15.7 % (11.5-14.5); WHITE BLOOD COUNT 6.8 10^3/ul (4.5-11.0)
[2017-11-29 06:32] LABS: ALB/GLOB RATIO 0.9 (1.1-1.8); ALBUMIN 2.4 g/dL (3.0-4.8); ALT/SGPT 26 U/L (7-56); AST/SGOT 18 U/L (14-36); BLOOD UREA NITROGEN 10 mg/dL (7-21); CALCIUM 7.8 mg/dL (8.4-10.5); GFR NON-AFRICAN AMERICAN > 60
[2017-11-29] MEDS: Ipratropium 0.02% Inhal Soln (0.5 mg/2.5 ml) UD IH SCH ×5 (07:43→19:54)
[2017-11-29 08:25] LABS: ANISOCYTOSIS SLIGHT; EOSINOPHIL 4 % (0.0-3.0); LYMPHOCYTE 5 % (22.0-35.0); MONOCYTE 8 % (1.0-6.0); MYELOCYTE 2 %; NEUTROPHIL 81 % (50.0-70.0); PLATELET ESTIMATE LOW (NORMAL)
[2017-11-29] MEDS ORDERED: Sodium Chloride 0.9% 1,000 ML IV STA (08:45)
[2017-11-29] MEDS: Nystatin 100,000 Units/ml Oral Susp 5 ml UD PO SCH ×4 (09:19→21:32)
--- NOTE | 2017-11-29 10:02 | CP.PCM.PN ---
Subjective - Date & Time of Evaluation Date of Evaluation: 11/29/17 Time of Evaluation: 09:56 - Subjective Subjective: Patient seen and examined at bedside. Patient with no acute events overnight. Patient admits to occasional blood tinged sputum production. Denies chest pain, shortness of breath, nausea, vomiting, diarrhea, fever, chills, cough. Objective - Vital Signs/Intake and Output Vital Signs (last 24 hours): Temp Pulse Resp BP Pulse Ox 98.2 F 90 18 78/49 L 94 L 11/29/17 08:06 11/29/17 08:06 11/29/17 08:06 11/29/17 08:06 11/29/17 08:06 Intake and Output: 11/29/17 11/29/17 06:59 18:59 Intake Total 1248 480 Output Total 700 300 Balance 548 180 - Medications Medications: Current Medications Acetaminophen (Tylenol 160mg/5ml Oral Soln) 320 mg PO Q4 PRN PRN Reason: Pain, Mild (1-3) Last Admin: 11/24/17 17:42 Dose: 320 mg Folic Acid (Folic Acid) 1 mg JT DAILY [facility] Last Admin: 11/29/17 09:19 Dose: 1 mg Potassium Chloride 30 meq/ (Sodium Chloride) 1,015 mls @ 40 mls/hr IV .Q24H [facility] Last Admin: 11/29/17 05:45 Dose: 40 mls/hr Sodium Chloride (Sodium Chloride 0.9%) 1,000 mls @ 300 mls/hr IV .Q3H20M [facility] Stop: 11/29/17 12:04 Last Admin: 11/29/17 09:20 Dose: 300 mls/hr Ipratropium [place] (Atrovent) 0.5 mg IH [id number] [facility] Last Admin: 11/29/17 07:43 Dose: 0.5 mg Nystatin (Nystop Topical Powder) 0 gm TOP BID [facility] Last Admin: 11/28/17 18:11 Dose: Not Given Nystatin (Nystatin Oral Susp) 5 ml PO QID [facility] Last Admin: 11/29/17 09:19 Dose: 5 ml Pantoprazole Sodium (Protonix Inj) 20 mg IVP Q12 [facility] Last Admin: 11/29/17 09:19 Dose: 20 mg Prednisone (Prednisone Tab) 10 mg PO DAILY [facility] Last Admin: 11/29/17 09:19 Dose: 10 mg Scopolamine (Transderm-Scop) 1 patch TD Q3D [facility] Last Admin: 11/28/17 18:11 Dose: 1 patch Tramadol HCl (Ultram) 50 mg GT TID PRN PRN Reason: Pain, moderate (4-7) Last Admin: 11/28/17 13:45 Dose: 50 mg - Labs Labs: 11/29/17 05:55 11/29/17 05:55 PT 11.6 SECONDS (9.4-12.5) 11/11/17 04:30 INR 1.02 11/11/17 04:30 APTT 26.9 Seconds (25.1-36.5) 11/11/17 04:30 - Constitutional Appears: Non-toxic, No Acute Distress - Head Exam Head Exam: ATRAUMATIC, NORMAL INSPECTION, NORMOCEPHALIC - ENT Exam ENT Exam: Mucous Membranes Dry - Respiratory Exam Respiratory Exam: Decreased Breath Sounds, NORMAL BREATHING PATTERN. absent: R ales, Rhonchi, Wheezes - Cardiovascular Exam Cardiovascular Exam: RRR, +S1, +S2 - GI/Abdominal Exam GI & Abdominal Exam: Soft, Normal Bowel Sounds Additional comments: PEG tube in place - Extremities Exam Extremities Exam: Normal Inspection. absent: Pedal Edema, Tenderness - Neurological Exam Neurological Exam: Alert, Awake, CN II-XII Intact, Oriented x3 - Psychiatric Exam Psychiatric exam: Normal Affect, Normal Mood - Skin Skin Exam: Intact, Normal Color, Warm Assessment and Plan - Assessment and Plan (Free Text) Plan: 52 yo female with a PMH of alcohol abuse and cirrhosis, who was admitted for hematemesis. Patient subsequently found to have a large friable, fungating and ulcerative mass found in hypopharynx which was found to be squamous cell carcinoma on biopsy. Patient is NPO and is s/p jejunostomy tube insertion. Pt received 8 sessions of radiation starting on 11/16. Patient will have chemotherapy outpatient as per oncology. Patient with blood pressure lower than her baseline, will give 1 liter normal saline bolus and obtain cortisol levels. Will also obtain chest x-ray. Patient currently declining RONAL placement. Hematemesis, Dysphagia, secondary to squamous cell carcinoma Chest x-ray ordered Radiation Oncology- Dr. Carrero - started radiation therapy on 11/16 (M-F daily), She will need 35 sessions total, to end on 01/05. Pulm Consulted- Dr. Tilley- Will continue aspiration precautions, inhaled bronchodilator for upper airway secretions Oncology consulted- Dr. Cleveland- On Cetuximab; further sessions as per Dr. Rancho rodriguez ENT, Dr. Ren consulted- biopsy showed SCC Continue bolus tube feeds during day and continue 60 ml/hr infusion at night Tramadol 50mg GT tube Oral prednisone 10 mg Hypotension 1 liter Normal saline given Cortisol level Liver cirrhosis CT abdomen: cirrhotic liver, no acute findings GI, Dr. Herrera consulted for safety of Cetuximab in cirrhotic patient, agree with starting pt on cetuximab Thrombocytopenia Stable; no active bleeding likely due to sequestration from cirrhosis as well as bone marrow suppression Hem/onc and GI following Anemia H&H stable Hemodynamically stable Alcohol Abuse, Anxiety Ativan 1 q6 PRN anxiety aspiration, fall, and seizure precautions Educated on cessation PPX DVT - SCDs GI - Protonix 20mg IVP q12 Kateryna, PGY-3
--- NOTE | 2017-11-29 11:44 | RAD ---
Date of service: 11/29/2017 HISTORY: Cough, hematemesis COMPARISON: 11/01/2017 single-view chest. 11/03/2017 CT neck and thorax FINDINGS: LUNGS: No active pulmonary disease. PLEURA: No significant pleural effusion identified, no pneumothorax apparent. CARDIOVASCULAR: No atherosclerotic calcification present No radiographic findings to suggest acute or significant cardiovascular disease. PICC line inserted since the prior studies through a right upper extremity approach. The tip is in the proximal SVC. OSSEOUS STRUCTURES: No significant abnormalities. VISUALIZED UPPER ABDOMEN: Normal. OTHER FINDINGS: Medial soft tissue mass upper thorax consistent with findings on recent chest CT. IMPRESSION: No active pulmonary disease. No pneumothorax following PICC line placement. The tip of the PICC line is in the SVC approximately 11 cm from the cavoatrial junction.
--- NOTE | 2017-11-29 12:18 | CARD ---
APPROVED REPORT Date of service: 11/29/2017 EKG Measurement Heart [id number] <Conclusion> Sinus tachycardia ST & T wave abnormality, consider inferolateral ischemia Abnormal ECG
--- NOTE | 2017-11-29 18:38 | PN ---
DATE: 11/29/2017 PULMONARY PROGRESS NOTE REFERRING PHYSICIAN: Dr. Evans. SUBJECTIVE: She is lying in the bed, sleepy, arousable. Night was unremarkable. Still has some cough. Not much hemoptysis. Does not tolerate a bolus G-tube feeding, gets diarrhea, but continuous feeding. She does well. No leg pain. No leg swelling. OBJECTIVE: GENERAL: In no acute distress. VITAL SIGNS: Temperature is 98, heart rate is 90, respiratory rate is 18, blood pressure is 78/49, pulse ox 94% on room air. HEENT: Moist mucous membrane. No ulcer or thrush noted. NECK: Supple. No JVD. LUNGS: Have a fair airflow with rhonchi. HEART: S1 and S2. ABDOMEN: Soft, nontender. G-tube area looks okay. EXTREMITIES: There is no edema. NEUROLOGICAL: Awake and alert. Follows simple command. MEDICATIONS: She is on Atrovent inhaled every 4 hours, folic acid 1 mg daily, nystatin orally four times a day, getting potassium supplement, prednisone is 10 mg daily, Protonix 20 mg every 12 hours, getting scopolamine patch every 3 days, Tylenol p.r.n. basis, Ultram 50 mg every 8 hours p.r.n. LABORATORY DATA: Shows hemoglobin 10.7, hematocrit 33.8, WBC 6.8, platelet count is 93. Sodium 141, potassium 3.9, chloride 109, bicarbonate 28, BUN 10, creatinine 0.4, glucose 100, calcium is 7.8, AST 18, ALT 28, alk phos 647, albumin is 2.4. Cortisol level is 3. Laboratory shows no new lab is available. A chest x-ray done today, which shows no pneumothorax, has a PICC line placed. IMPRESSION AND PLAN: Squamous cell carcinoma of the glottal area with hemoptysis, which is improved, on radiation therapy; history of alcohol abuse; cirrhotic liver; thrombocytopenia. Does not tolerate bolus feeding of gastrostomy tube, gets diarrhea. Spoke to nursing staff. We will change feeding to 60 mL/hour from 6:00 p.m. to 9:00 a.m., trying to keep up with the calories, but do not give bolus. She has a low cortisol level. Do not discontinue her prednisone, may increase to mg daily. Keep head elevated at 45 degrees. Aspiration precaution. Has adrenal insufficiency. Thank you and we will follow with you. Aden Tilley MD
--- NOTE | 2017-11-29 19:41 | PN ---
DATE: 11/29/2017 SUBJECTIVE: The patient is seen earlier this morning, comfortable. She has mild shortness of breath and cough. PHYSICAL EXAMINATION: VITAL SIGNS: Temperature is 98, blood pressure is 78/40, respiratory rate of 18, heart rate of 90. HEENT: Unremarkable. NECK: Supple. LUNGS: Have decreased breath sounds. HEART: Normal S1, S2. ABDOMINAL: Soft. LABORATORY EXAMINATION: Reveals a white count of 6.8, hemoglobin of 10, platelets of 93. BUN of 10, creatinine of 0.4. Urinalysis is noted. Serology is noted. Microbiology reveals the C. diff antigen is negative antigen and toxin. Chest x-ray is pending. ASSESSMENT AND PLAN: A 52-year-old with liver cirrhosis, alcohol abuse, anxiety, depression, squamous cell cancer of subglottal area, laryngeal cancer. Currently off of antibiotics and found to have fungating ulcer mass, hypopharynx squamous cell carcinoma and biopsy. Currently, review of orders reveals the patient is off of antibiotics, afebrile and the patient is on prednisone. The patient is at risk for developing nosocomial infections. Yunior Hdz MD
[2017-11-29 23:16] LABS: PH,URINE 6.5 (4.7-8.0); URINE BILIRUBIN NEGATIVE (NEGATIVE); URINE BLOOD NEGATIVE (NEGATIVE); URINE GLUCOSE (UA) NEGATIVE (NEGATIVE); URINE LEUKOCYTE ESTERASE NEGATIVE Leu/uL (NEGATIVE); URINE PROTEIN NEGATIVE mg/dL (<30 mg/dL); URINE UROBILINOGEN 0.2 E.U./dL (<1 E.U./dL)
[2017-11-29 23:33] LABS: URINE APPEARANCE CLEAR (CLEAR); URINE COLOR YELLOW (YELLOW)
[2017-11-30] MEDS: Ipratropium 0.02% Inhal Soln (0.5 mg/2.5 ml) UD IH SCH ×6 (00:13→19:35)
[2017-11-30 06:57] LABS: ALB/GLOB RATIO 0.9 (1.1-1.8); ALBUMIN 2.3 g/dL (3.0-4.8); ALT/SGPT 19 U/L (7-56); AST/SGOT 16 U/L (14-36); BLOOD UREA NITROGEN 12 mg/dL (7-21); CALCIUM 7.5 mg/dL (8.4-10.5); GFR NON-AFRICAN AMERICAN > 60
[2017-11-30 07:03] LABS: BASO # 0.01 K/mm3 (0.0-2.0); BASO % 0.1 % (0.0-3.0); EOS # 0.2 (0.0-0.7); EOS % 3.2 % (1.5-5.0); GRAN # 6.03 (1.4-6.5); GRAN % 80.8 % (50.0-68.0); LYMPH # 0.7 (1.2-3.4); LYMPH % 9.1 % (22.0-35.0); MEAN CORPUSCULAR HEMOGLOBIN 31.3 pg (25.0-35.0); MEAN CORPUSCULAR HGB CONC 31.3 g/dl (31.0-37.0); MEAN PLATELET VOLUME 11.5 fl (7.0-11.0); MONO # 0.5 (0.1-0.6); MONO % 6.8 % (1.0-6.0); RBC 3.51 10^6/uL (3.5-6.1); RED CELL DISTRIBUTION WIDTH 15.6 % (11.5-14.5); WHITE BLOOD COUNT 7.5 10^3/ul (4.5-11.0)
--- NOTE | 2017-11-30 08:49 | CP.PCM.PN ---
Subjective - Date & Time of Evaluation Date of Evaluation: 11/30/17 Time of Evaluation: 08:45 - Subjective Subjective: Pt seen and examined this morning. Pt denies chest pain, SOB. Pt reports she only urinated once last night, she states she typically urinates 4 times when getting her tube feeds Objective - Vital Signs/Intake and Output Vital Signs (last 24 hours): Temp Pulse Resp BP Pulse Ox 99.1 F 106 H 20 84/55 L 95 11/30/17 08:17 11/30/17 08:17 11/30/17 08:17 11/30/17 08:17 11/30/17 08:17 Intake and Output: 11/30/17 11/30/17 06:59 18:59 Intake Total 720 Output Total 500 Balance 220 - Medications Medications: Current Medications Acetaminophen (Tylenol 160mg/5ml Oral Soln) 320 mg PO Q4 PRN PRN Reason: Pain, Mild (1-3) Last Admin: 11/24/17 17:42 Dose: 320 mg Folic Acid (Folic Acid) 1 mg JT DAILY [facility] Last Admin: 11/29/17 09:19 Dose: 1 mg Potassium Chloride 30 meq/ (Sodium Chloride) 1,015 mls @ 40 mls/hr IV .Q24H [facility] Last Admin: 11/29/17 05:45 Dose: 40 mls/hr Ipratropium [place] (Atrovent) 0.5 mg IH [id number] [facility] Last Admin: 11/30/17 07:34 Dose: Not Given Nystatin (Nystop Topical Powder) 0 gm TOP BID [facility] Last Admin: 11/28/17 18:11 Dose: Not Given Nystatin (Nystatin Oral Susp) 5 ml PO QID [facility] Last Admin: 11/29/17 21:32 Dose: 5 ml Pantoprazole Sodium (Protonix Inj) 20 mg IVP Q12 [facility] Last Admin: 11/29/17 21:33 Dose: 20 mg Prednisone (Prednisone Tab) 10 mg PO DAILY [facility] Last Admin: 11/29/17 09:19 Dose: 10 mg Scopolamine (Transderm-Scop) 1 patch TD Q3D [facility] Last Admin: 11/28/17 18:11 Dose: 1 patch Tramadol HCl (Ultram) 50 mg GT TID PRN PRN Reason: Pain, moderate (4-7) Last Admin: 11/29/17 18:20 Dose: 50 mg - Labs Labs: 11/30/17 06:00 11/30/17 06:00 PT 11.6 SECONDS (9.4-12.5) 11/11/17 04:30 INR 1.02 11/11/17 04:30 APTT 26.9 Seconds (25.1-36.5) 11/11/17 04:30 - Constitutional Appears: Non-toxic, No Acute Distress - Head Exam Head Exam: ATRAUMATIC, NORMAL INSPECTION, NORMOCEPHALIC - Eye Exam Eye Exam: EOMI - ENT Exam ENT Exam: Mucous Membranes Moist - Neck Exam Neck Exam: Full ROM - Respiratory Exam Respiratory Exam: Clear to Ausculation Bilateral, NORMAL BREATHING PATTERN. absent: Accessory Muscle Use, Wheezes, Respiratory Distress - Cardiovascular Exam Cardiovascular Exam: RRR, +S1, +S2. absent: Diastolic murmur, Murmur - GI/Abdominal Exam GI & Abdominal Exam: Soft, Normal Bowel Sounds. absent: Tenderness Additional comments: j tube in place, mild tenderness around site - Extremities Exam Extremities Exam: Full ROM. absent: Calf Tenderness - Neurological Exam Neurological Exam: Alert, Awake, Oriented x3 - Psychiatric Exam Psychiatric exam: Normal Affect, Normal Mood - Skin Skin Exam: Dry, Intact, Warm Assessment and Plan - Assessment and Plan (Free Text) Assessment: 52 yo female with a PMH of alcohol abuse and cirrhosis, who was admitted for hematemesis. Patient subsequently found to have a large friable, fungating and ulcerative mass found in hypopharynx which was found to be squamous cell carcinoma on biopsy. Patient is NPO and is s/p jejunostomy tube insertion. Pt received 8 sessions of radiation starting on 11/16. Patient will have chemotherapy outpatient as per oncology. Patient with blood pressure lower than her baseline, will give 1 liter normal saline bolus and obtain cortisol levels. Will also obtain chest x-ray. Patient currently declining RONAL placement. Plan: Hematemesis, Dysphagia, secondary to squamous cell carcinoma - Radiation Oncology- Dr. Carrero - started radiation therapy on 11/16 (M-F daily), She will need 35 sessions total, to end on 01/05. - Pulm Consulted- Dr. Tilley- Will continue aspiration precautions, inhaled bronchodilator for upper airway secretions - Oncology consulted- Dr. Cleveland- On Cetuximab; further sessions as per Dr. Cleveland - ENT, Dr. Ren consulted- biopsy showed SCC - Continue bolus tube feeds during day and continue 60 ml/hr infusion at night - Tramadol 50mg G-tube - Oral prednisone 10 mg Hypotension - 1 liter Normal saline given Adrenal Insufficiency - Cortisol 3.0 - Endocrinology consulted Liver cirrhosis - CT abdomen: cirrhotic liver, no acute findings - GI, Dr. Herrera consulted for safety of Cetuximab in cirrhotic patient, agree with starting pt on cetuximab Thrombocytopenia - Stable; no active bleeding - likely due to sequestration from cirrhosis as well as bone marrow suppression - Heme/onc and GI following Anemia - H&H stable - Hemodynamically stable Alcohol Abuse, Anxiety - Ativan 1 q6 PRN anxiety - aspiration, fall, and seizure precautions - Educated on cessation Ppx - DVT - Heparin - GI - Protonix 20mg IVP q12 Pt seen, examined, assessment and plan discussed with Dr Edilberto Ferrer PGY1, Internal Medicine Resident
--- NOTE | 2017-11-30 09:03 | PN ---
DATE: 11/28/2017 ONCOLOGY PROGRESS NOTE LOCATION: The patient is in room 372, bed 2. The patient is examined at the bedside. 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 The patient has a jejunostomy feeding tube and has been started on radiation and has been slowly improving from the tumor point of view. Hemoptysis has decreased substantially. The patient is having issues with tolerating her feedings. The patient.s jejunostomy feedings are not be giving during the night for at least 12 hours; during the day, she gets bolus feedings. The patient tells me that she still reports diarrhea, but not as bad and she is trying to adjust with the feedings, which have been changed from Jevity to Vital, which should give her more calories and less residue so that she would not have so much of diarrhea. The patient denies any fevers, chills, any significant chest pain or abdominal pain today. No nausea or vomiting. No hematemesis. No headaches or any dizziness at this time. MEDICATIONS: Reviewed and that unchanged at this point in time. LABORATORY DATA: Reviewed. White count is 8.7, hemoglobin 11.6, hematocrit 35.6, platelet count of 113,000. Sodium is 138, K is 3.7, chloride is 106, CO2 is 27, BUN is 10, creatinine 0.4, blood sugar is 110. PT and INR are within normal limits. PHYSICAL EXAMINATION: GENERAL: The patient is examined in bed. Reveals the patient to be awake, alert, oriented, in no acute distress. VITAL SIGNS: Stable. T-max is 98.4, heart rate is down 100 per minute, respirations 20, blood pressure is 90/51, pulse ox is 98% on room air. HEENT: Head is normocephalic and atraumatic. No oropharyngeal lesions are noted. Poor dentition is noted. Examination of the tongue reveals no ulcerations. No evidence of any fungal infection is noted. NECK: Supple. There is no adenopathy. No jugular venous distention noted. LUNGS: Clear to percussion and auscultation. CARDIOVASCULAR SYSTEM: Reveals S1 and S2 to be normal. No gallop or murmur is heard. ABDOMEN: Soft. Nontender. Jejunostomy feeding tube site appears to be okay. No rebound, rigidity, or guarding is noted. EXTREMITIES: Reveal no cyanosis, clubbing or edema. NEUROLOGIC: The patient is awake, alert, and oriented. No focal deficits are noted. The patient appears to be smiling today and interacting positively with me. SKIN: Skin turgor is decreased. No skin lesions are noted. ASSESSMENT, NOTES, AND PLAN: This is a 52-year-old female with low-grade advanced carcinoma involving the oropharynx, supraglottic portion of the larynx, T4N0M0 squamous cell carcinoma, human papillomavirus negative with background history of alcohol abuse, cirrhosis of the liver, splenomegaly with thrombocytopenia with through the head and neck area and the patient is being assessed for conjunctional cetuximab chemotherapy, okay has been given by GI. We are waiting for input from her brother before initiating the therapy given that the patient is giving a consent today the treatment as an outpatient in the Oncology Clinic positive interaction with her brother over the weekend. In the meantime, she will continue feedings in the bolus feedings for optimal nutrition support. The patient is also getting additional Prostat b.i.d. and she is also on prednisone, which is being tapered gradually. The patient will need home health and social work consultation, which had already placed; so that we can arrange for all of this to be done as an outpatient. Routine post-examination instructions have been given to the patient. We would communicate with the primary team after my discussions and interaction with her brother. Time spent with the patient is greater than 50 minutes, out of which more than 50% of the time was spent in [id number] contact, correlating all the information, discussing with the patient in great detail. Loni Cleveland MD
[2017-11-30] MEDS: Nystatin 100,000 Units/gm Topical Pow(15 gm) TOP SCH ×2 (10:26→19:20)
[2017-11-30] MEDS: Nystatin 100,000 Units/ml Oral Susp 5 ml UD PO SCH ×4 (10:26→22:36)
--- NOTE | 2017-11-30 14:33 | PN ---
DATE: 11/30/2017 FOLLOWUP NOTE SUBJECTIVE: Short, the patient is a 52-year-old single female with history of depression, anxiety, alcohol use disorder, cirrhosis. The patient was newly diagnosed with squamous cell carcinoma in her pharynx. Psychiatry was involved into the patient's care because the patient presented to be depressed. The patient also has alcohol use disorder and possible adjustment disorder. The patient was seen by Dr. Gray over the weekend. This screenplay writer reviewed the assessment note. The patient was seen and examined, discussed with the nursing staff as well as attending. The patient was seen and examined. The patient seems to be disengaged into the conversation, not willing to participate in interview. The patient reported that she feels depressed, but adamantly denied any feeling of hopelessness or helplessness. Adamantly denied thoughts of harming herself or others. The patient also denied hopelessness as well as helplessness as well as suicidal ideation to Dr. Gray over the weekend. The patient denied hearing voices, denied seeing things. The patient reported that she lives with a brother and reported that he treats her well. The patient denied feeling anxious right now. The patient reported that she feels comfortable more or less. PHYSICAL EXAMINATION: VITAL SIGNS: Reviewed. The patient's temperature 99.1, pulse is 106, blood pressure 84/55, respirations 26, oxygen saturation is 95%. MEDICATIONS: Reviewed. Folic acid, Atrovent, the patient refused. The patient also was refusing nystatin. The rest the patient was compliant with. LABORATORY DATA: Reviewed. Hemoglobin and hematocrit 11 and 35.1. Coagulation reviewed. Chemistry reviewed. Urinalysis reviewed. Toxicology reviewed. Serology reviewed. Hematology/Oncology notes reviewed. MENTAL STATUS EXAMINATION: The patient appears to be alert and oriented, very thin build apathetic female. Mood described as depressed. Affect was flat, mood congruent. Thought process concrete. Thought content: The patient denied feeling of hopelessness or helplessness. Denied thoughts of harming herself or others. The patient denied any psychotic symptoms. Denied hearing voices, seeing things. Denied paranoia. The patient does not present to be psychotic. Insight and judgment seem to be fair. Impulses are well controlled. IMPRESSION: This screenplay writer would put adjustment disorder with depressed and anxious mood as primarily diagnosis. Rule out major depressive disorder, rule out mood disorder due to general medical condition, alcohol use disorder, alcohol withdrawals seems to be under control. PLAN: The patient does not want to be initiated on any antidepressants. The patient contracted for safety. The patient adamantly denied thoughts of harming herself or others. Emotional support and empathic listening provided. Palliative care needs to be involved because this screenplay writer feels that the patient needs to be discussed about advance directives in the future. The patient also might benefit from the family involvement. This screenplay writer does not feel that the patient is any imminent danger to self or others, but might benefit from therapy. We will respect the patient's decision about medication. The patient does not want to be on medication for now. This screenplay writer will sign off. Should you have any questions, give me a call back. Criselda Mc MD
--- NOTE | 2017-11-30 16:51 | CP.PCM.PN ---
Subjective - Date & Time of Evaluation Date of Evaluation: 11/30/17 Time of Evaluation: 16:48 - Subjective Subjective: Hematology/Oncology Progress Note (Dr. Cleveland's Service) Patient seen and assessed at bedside. No acute events noted overnight. Patient reports that her abdominal pain has improved with adjustment of her tube feedings. Patient denies any further complaints at this time, however, including fevers, chills, headache, chest pain, SOB, V/D/C, changes in urine output, skin changes or any numbness/tingling/weakness of any extremity. Objective - Vital Signs/Intake and Output Vital Signs (last 24 hours): Temp Pulse Resp BP Pulse Ox 97.2 F L 82 18 91/56 L 97 11/30/17 15:52 11/30/17 15:52 11/30/17 15:52 11/30/17 15:52 11/30/17 15:52 Intake and Output: 11/30/17 11/30/17 06:59 18:59 Intake Total 720 Output Total 500 Balance 220 - Medications Medications: Current Medications Acetaminophen (Tylenol 160mg/5ml Oral Soln) 320 mg PO Q4 PRN PRN Reason: Pain, Mild (1-3) Last Admin: 11/24/17 17:42 Dose: 320 mg Folic Acid (Folic Acid) 1 mg JT DAILY [facility] Last Admin: 11/30/17 10:25 Dose: 1 mg Heparin Sodium (Porcine) (Heparin) 5,000 units SC Q12 [facility]; Protocol Last Admin: 11/30/17 12:01 Dose: 5,000 units Potassium Chloride 30 meq/ (Sodium Chloride) 1,015 mls @ 40 mls/hr IV .Q24H [facility] Last Admin: 11/29/17 05:45 Dose: 40 mls/hr Ipratropium [place] (Atrovent) 0.5 mg IH [id number] [facility] Last Admin: 11/30/17 11:01 Dose: 0.5 mg Midodrine (Proamatine) 5 mg PO TID [facility] Nystatin (Nystop Topical Powder) 0 gm TOP BID [facility] Last Admin: 11/30/17 10:26 Dose: Not Given Nystatin (Nystatin Oral Susp) 5 ml PO QID [facility] Last Admin: 11/30/17 13:23 Dose: 5 ml Pantoprazole Sodium (Protonix Inj) 20 mg IVP Q12 [facility] Last Admin: 11/30/17 10:26 Dose: 20 mg Prednisone (Prednisone Tab) 10 mg PO DAILY [facility] Last Admin: 11/30/17 10: Dose: 10 mg Scopolamine (Transderm-Scop) 1 patch TD Q3D [facility] Last Admin: 11/28/17 18:11 Dose: 1 patch Tramadol HCl (Ultram) 50 mg GT TID PRN PRN Reason: Pain, moderate (4-7) Last Admin: 11/30/17 11:23 Dose: 50 mg - Labs Labs: 11/30/17 06:00 11/30/17 06:00 PT 11.6 SECONDS (9.4-12.5) 11/11/17 04:30 INR 1.02 11/11/17 04:30 APTT 26.9 Seconds (25.1-36.5) 11/11/17 04:30 - Constitutional Appears: Non-toxic, No Acute Distress - Head Exam Head Exam: ATRAUMATIC, NORMOCEPHALIC - Eye Exam Eye Exam: EOMI, Normal appearance - ENT Exam ENT Exam: Mucous Membranes Moist - Neck Exam Neck Exam: Full ROM - Respiratory Exam Respiratory Exam: Clear to Ausculation Bilateral, NORMAL BREATHING PATTERN. absent: Accessory Muscle Use, Decreased Breath Sounds, Rales, Rhonchi, Wheezes, Respiratory Distress - Cardiovascular Exam Cardiovascular Exam: REGULAR RHYTHM, RRR, +S1, +S2 - GI/Abdominal Exam GI & Abdominal Exam: Soft, Normal Bowel Sounds. absent: Tenderness Additional comments: g-tube in place without any signs of clinical infection of the surrounding soft tissues - Extremities Exam Extremities Exam: absent: Calf Tenderness - Neurological Exam Neurological Exam: Alert, Awake, Oriented x3 - Psychiatric Exam Psychiatric exam: Normal Affect, Normal Mood - Skin Skin Exam: Dry, Intact, Normal Color, Warm Assessment and Plan - Assessment and Plan (Free Text) Assessment: 52 year old female with a past medical history significant for alcohol abuse, alcoholic cirrhosis, pancytopenia likely secondary to alcohol induced bone marrow suppression, rheumatoid arthritis and a polyploid friable hypopharyngeal lesion (noted on endoscopy in 2017) who was admitted for hematemesis, weakness and progressive dysphagia. Intraluminal esophageal lesion was noted on imaging and a large friable hypopharyngeal mass completely obstructing the airway was seen on upper endoscopy and laryngoscopy. 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 Patient has been started on XRT and is currently scheduled for 35 sessions total to end 01/05, daily Thursday-Thursday; she also needs to be optimized nutritionally. Patient underwent J-tube placement for parenteral nutrition and supplementation with adequate caloric intake. Her feeds have been switched to nocturnal feeds without daytime boluses which has seemed to work for the patient, as she is having less abdominal pain and diarrhea. The patient has shown very poor outpatient follow-up and is at risk for neglecting her care if discharged prematurely. She also needs to monitored further due to the acute side-effects of XRT, especially in a malignancy such as hers that could compromise her airway. Patient and supporting family members, patients brother, have both spoken to Dr. Cleveland and are in agreement to have chemotherapy with Cetuximab. Hematology/Oncology still needs to obtain consent and will do so when patients brother is at bedside, per patient request. Plan: -Continue XRT with Radiation Oncology, Dr. Carrero, all recommendations appreciated -Will obtain consent for Cetuximab therapy; She will require weekly therapy -ID consulted, all recommendations appreciated; Currently being monitored off of antibiotics -GI consulted, all recommendations appreciated; In agreement with choice of Cetu ximab given her history of cirrhosis -Nephrology consulted, all recommendations appreciated -Continue tube feedings and IV hydration as ordered -HPV serology negative -Further recommendations per Dr. Cleveland Patient seen and case discussed with attending, Dr. Cleveland. Edilberto Martin PGY2
--- NOTE | 2017-11-30 17:03 | PN ---
DATE: 11/30/2017 SUBJECTIVE: The patient is seen lying in bed. She is awake, she is alert. She reports she is feeling a little bit better. Her abdominal pain is somewhat improved. Her hemoptysis/blood tinged sputum is less. PHYSICAL EXAMINATION: GENERAL: Middle-aged lady lying in bed. VITAL SIGNS: Blood pressure 84/55, heart rate 106, respiratory rate 20, temperature 99.1, T-max is 99.1. HEENT: Normocephalic, atraumatic, positive pallor. NECK: Supple, no JVD. LUNGS: Bilateral equal air entry. CARDIAC: S1 and S2, regular rate and rhythm, no murmur, no rub. ABDOMEN: Soft, nondistended, nontender, positive PEG placement. Bowel sounds present. EXTREMITIES: No lower extremity edema. INTAKE AND OUTPUT: 1200/1750. LABORATORY DATA: WBC 7.5, hemoglobin 11, hematocrit 35, platelets 97. Sodium 140, potassium 3.9, chloride 109, CO2 of 27, BUN 12, creatinine 0.4, glucose 93, calcium 7.5, albumin 2.3. CURRENT MEDICATIONS: Atrovent, folic acid, nystatin, potassium chloride 30 mEq in normal saline at 40, prednisone, Protonix, scopolamine, and tramadol. ASSESSMENT: 1. Laryngeal carcinoma with local invasion. 2. History of alcohol abuse, alcoholic liver disease. 3. Hypotension. 4. Malnutrition. PLAN: 1. Continue PEG feeds. 2. Continue Protat via PEG. 3. Continue low-dose IV fluids. Shanae Whyte MD
[2017-11-30] MEDS ORDERED: DiphenhydrAMINE 50 mg/ml Inj IVP ONE (22:09)
--- NOTE | 2017-12-01 00:54 | PN ---
DATE: 11/30/2017 SUBJECTIVE: The patient is in bed in no acute distress. PHYSICAL EXAMINATION VITAL SIGNS: Temperature is 97, blood pressure is 100/60, respiratory rate of 18. HEENT: Examination of HEENT is unremarkable. NECK: Supple. LUNGS: Have decreased breath sounds. HEART: Normal S1, S2. ABDOMEN: Soft. LABORATORY EXAMINATION: Reveals a white count of 7.5, hemoglobin 11, platelets of 97. BUN of 12, creatinine of 0.4, and urinalysis is noted. Serology is negative. Microbiology reveals the stool for C. diff is negative antigen and negative toxin, and review of orders reveals the patient . ASSESSMENT AND PLAN: This is a 52-year-old female with liver cirrhosis, alcohol abuse, anxiety, depression, squamous cell cancer of subglottal area, laryngeal cancer. Currently off of antibiotics, fungating ulcer mass, hypopharynx squamous cell carcinoma and biopsy. Currently off antibiotics, has risk for developing nosocomial infections. Yunior Hdz MD
[2017-12-01] MEDS: Ipratropium 0.02% Inhal Soln (0.5 mg/2.5 ml) UD IH SCH ×6 (02:16→21:00)
--- NOTE | 2017-12-01 03:56 | PN ---
DATE: 11/30/2017 PULMONARY PROGRESS NOTE REFERRING PHYSICIAN: Dr. Evans SUBJECTIVE: She is lying in the bed, head of bed at 45 degrees. Still has some cough, no hemoptysis. Tolerating continuous feeding well, but bolus feeding she gets diarrhea. No abdominal pain. No leg pain, no leg swelling. PHYSICAL EXAMINATION: GENERAL: In no acute distress. VITAL SIGNS: Temp is 98, heart rate is 82, respiratory rate is 18, blood pressure is 91/56, pulse ox 97% on room air. HEENT: Moist mucous membrane. No ulcer or thrush noted. LUNGS: Have diffuse scattered rhonchi. HEART: S1, S2. ABDOMEN: Soft, nontender, nondistended. G-tube area looks okay. EXTREMITIES: No edema. NEUROLOGIC: Awake, alert, follow simple commands. MEDICATIONS: She is on Atrovent 0.5 mg every 4 hours, folic acid 1 mg daily, heparin 5000 units subcu every 12 hours, nystatin 5 mL 4 times a day, IV fluid with potassium 80 mL per hour, prednisone 10 mg daily, midodrine 5 mg 3 times a day, Protonix 20 mg twice a day, scopolamine patch every 3 hours, Tylenol p.r.n., Ultram 50 mg G-tube 3 times a day p.r.n. LABORATORY DATA: Shows hemoglobin 11, hematocrit 35.1, WBC 7.5, platelet count is 97. Sodium 140, potassium 3.9, chloride 109, bicarbonate is 27, BUN 12, creatinine is 0.4, calcium is 7.5, AST is 16, ALT is 19, alk phos 640, albumin is 2.3, cortisol level in the a.m. was 3. 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 Spoke to nursing staff. May increase hourly feeding through the pump as long as we give 4 cans a day, probably have adrenal insufficiency, on prednisone, we will keep on it for now. Followup cortisol level. Aspiration precaution. Out of bed to chair. fit from physical therapy. Thank you and we will follow with you. Aden Tilley MD [facility] # [id number]
[2017-12-01 06:50] LABS: EOS # 0.1 (0.0-0.7); GRAN # 4.34 (1.4-6.5); GRAN % 78.9 % (50.0-68.0); HEMOGLOBIN 11.4 g/dL (12.0-16.0); LYMPH # 0.4 (1.2-3.4); LYMPH % 6.9 % (22.0-35.0); MEAN CELL VOLUME 100.8 fl (80.0-105.0); MEAN CORPUSCULAR HEMOGLOBIN 31.6 pg (25.0-35.0); MEAN CORPUSCULAR HGB CONC 31.3 g/dl (31.0-37.0); MEAN PLATELET VOLUME 11.8 fl (7.0-11.0); MONO # 0.7 (0.1-0.6); MONO % 12.2 % (1.0-6.0); RBC 3.61 10^6/uL (3.5-6.1); RED CELL DISTRIBUTION WIDTH 15.6 % (11.5-14.5); WHITE BLOOD COUNT 5.5 10^3/ul (4.5-11.0)
[2017-12-01 07:05] LABS: ALBUMIN 2.7 g/dL (3.0-4.8); ALT/SGPT 21 U/L (7-56); AST/SGOT 18 U/L (14-36); BLOOD UREA NITROGEN 13 mg/dL (7-21); CALCIUM 8.1 mg/dL (8.4-10.5); GFR NON-AFRICAN AMERICAN > 60
[2017-12-01] MEDS: Potassium Chloride 30 MEQ in Sodium Chloride 0.9% 1,000 ML IV SCH (07:25)
--- NOTE | 2017-12-01 07:55 | CON ---
DATE: 11/30/2017 ENDOCRINOLOGY CONSULT Room: 370. HISTORY OF PRESENT ILLNESS: This is a 52-year-old female presenting here with generalized body weakness and supervening hematemesis with an eventual diagnosis of a hypopharyngeal mass and is now being referred for evaluation of possible adrenal insufficiency. Subsequent endoscopy and laryngoscopy showed the presence of a laryngeal carcinoma and the biopsy reports confirmed the presence of a squamous cell carcinoma which was moderately differentiated and is currently undergoing radiation therapy at this time followed shortly by chemotherapy, the family agrees to the aforementioned. PAST MEDICAL HISTORY: As mentioned above, history of chronic alcoholism with alcoholic liver disease and subsequent liver cirrhosis, history of rheumatoid arthritis, history of hypertension and dyslipidemia. FAMILY HISTORY Positive for hypertension and heart disease. SOCIAL HISTORY The patient has a supportive family with a significant history of chronic alcoholism and previous cocaine abuse with another narcotic analgesics. REVIEW OF SYSTEMS: As mentioned above, admits to generalized body weakness with progressive bouts of dizziness and lightheadedness with easy fatigability and tiredness. No chest pains or palpitations or PNDs. Her oral intake has been variable with nausea, dyspepsia, and progressive anorexia with severe odynophagia and dysphagia and admits to about a 20-pound or so weight loss. No recent alterations of bowel and/or urinary patterns. PHYSICAL EXAMINATION: GENERAL: An average built female in no apparent distress with a blood pressure of 130/80, pulse of 100 beats per minute regular, temperature 98, respirations 20, height is 5 feet 4 inches, weight is 85 pounds. HEENT: Head normocephalic. Eyes anicteric with pink conjunctivae. Funduscopy not possible at this time. Ears, nose, and throat otherwise normal. NECK: Supple. Thyroid gland is normal in size. No carotid bruits or any cervical adenopathy. CARDIOPULMONARY: Some adynamic precordium. S1, S2 are rapid and regular. LUNGS: Show scattered rhonchi. ABDOMEN: Flat, soft with positive bowel sounds. EXTREMITIES: No peripheral edema. Pulses are +2 bilaterally. LABORATORIES: Her serum cortisol level is 3.0; however, she also has a very low albumin of 2.3. Chemistries; BUN of 12, sodium 140, potassium 3.9, chloride 109, CO2 of 27, glucose 93, and creatinine 0.4. 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 However, with the presence of significant hypoalbuminemia, we should expect also low normal serum cortisol levels because of the expected low cortisol binding globulin levels as noted thereof. She is currently on prednisone therapy, the exact reasons for the current therapy will yet be clarified with medical staff as to whether it is being given for her rheumatoid arthritis or for empirical treatment of hypoadrenalism. PLAN OF MANAGEMENT: We will do a confirmatory hormonal testing, i.e., a Cortrosyn stimulation test, for which we will do a basal fasting serum cortisol level tomorrow morning at 5:00 a.m. followed by the administration of Cortrosyn 250 mcg IV push one dose at 6:30 a.m. Then about an hour later, we will obtain a post-stimulation cortisol level at 7:30 a.m. and this will confirm and/or indicate the presence of underlying adrenal insufficiency. We will follow and advise accordingly. Arianne Marte MD
[2017-12-01] MEDS: Nystatin 100,000 Units/ml Oral Susp 5 ml UD PO SCH ×4 (10:44→21:20)
--- NOTE | 2017-12-01 11:36 | PN ---
DATE: 12/01/2017 SUBJECTIVE: The patient is in bed, in no acute distress, nontoxic. PHYSICAL EXAMINATION: VITAL SIGNS: On exam, temperature is 98, blood pressure is 84/50, respiratory rate of 20. HEENT: Examination of HEENT is unremarkable. NECK: Supple. LUNGS: Have decreased breath sounds. HEART: Normal S1, S2. ABDOMEN: Soft. LABORATORY DATA: Laboratory examination reveals a white count of 5.5, hemoglobin of 11, platelets of 94. Chemistries reveals a BUN of 13, creatinine of 0.4. Toxicology is noted. HIV is negative. Hepatitis profile is negative. Microbiology is noted. Stool for C. diff is negative. Antigen and toxin negative. Urine culture, blood cultures and another urine cultures negative. Review of orders reveals the patient to be off of antibiotics. The patient is on prednisone. Dr. Tilley's note is reviewed and appreciated. 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 Currently off of antibiotics with fungating ulcer and mass, hypopharynx; squamous cell carcinoma, status post biopsy. Currently off of antibiotics, afebrile. The patient is at risk for developing nosocomial infections. Yunior Hdz MD
--- NOTE | 2017-12-01 15:14 | PN ---
DATE: 12/01/2017 SUBJECTIVE: The patient is currently seen lying in bed. She is in no acute distress. IV fluids are infusing. The patient states that she is not happy with the PEG tube feeding. She would like to try a formula that she tolerates better. MEDICATIONS: Medication list reviewed. The patient is on Atrovent, folic acid, subcu heparin, nystatin, IV fluids with potassium, prednisone, ProAmatine, Protonix, Transderm Scop, Tylenol p.r.n., and Ultram p.r.n. PHYSICAL EXAMINATION: INTAKE AND OUTPUT: Intake 2580, output 800. VITAL SIGNS: Blood pressure is presently 84/50. Pulse 97, temperature 98.3, respiratory rate 20. HEENT: Shows her to be normocephalic, atraumatic. Conjunctivae are pink. Sclerae are nonicteric. NECK: Supple. No neck vein distention. CHEST: Clear to auscultation and percussion. No rales, rhonchi, or wheezing. CARDIOVASCULAR: Shows a regular rate and rhythm without murmurs, rubs, or gallops. ABDOMEN: Soft, nondistended. Positive PEG tube left lower quadrant. No rebound or guarding. EXTREMITIES: Show no lower extremity cyanosis, clubbing, or edema. LABORATORY DATA AND IMAGING: CBC: White blood cell count 5.5, hemoglobin 11.4 with a platelet count of 94,000. Chemistries are normal. BUN 30 with a creatinine of 0.4. Calcium is 8.1, corrects to normal for an albumin of 2.7. Urines are unremarkable. Toxicology screen unremarkable and negative. Microbiology, all cultures including C. diff were negative. ASSESSMENT: 1. Laryngeal carcinoma with local invasion. 2. History of alcohol abuse with alcoholic liver disease. 3. History of hypotension. We will increase ProAmatine to 10 mg three times a day. Would like to discontinue IV fluid hydration once PEG tube feedings restart. 3. History of malnutrition with low albumin levels. The patient needs to restart a formula that she tolerates well through her PEG tube feedings. PLAN: As outlined above. New Pepper MD [facility] # [id number]
--- NOTE | 2017-12-01 16:09 | PN ---
DATE: 12/01/2017 ENDO FOLLOWUP NOTE LOCATION: In room 370. SUBJECTIVE: This is a 52-year-old female with recent evaluation for laryngeal cell carcinoma and currently undergoing radiation therapy at this time and is also being followed closely for endocrine evaluation and management of possible adrenal insufficiency. She is currently on prednisone 10 mg once daily as given. Her latest chemistry showed a BUN of 13, sodium 139, potassium 3.9, chloride 106, CO2 of 29, glucose 102 and creatinine 0.4. Her baseline random serum cortisol level today was 2.6 and I do not yet have the reports of the post 1 hour stimulation cortisol level as noted. ASSESSMENT: This is a 52-year-old female with longstanding chronic alcoholism and underlying alcoholic liver cirrhosis, presenting here with hematemesis and odynophagia and has been evaluated to have a laryngeal cell carcinoma, currently undergoing radiation therapy as given thereof. The possibility of adrenal insufficiency is also being worked up at this point in time. PLAN OF MANAGEMENT: We will await the completion of the Cortrosyn stimulation test as undertaken this morning. This aforementioned hormonal testing will confirm and/or indicate the presence of underlying adrenal insufficiency. She is currently on prednisone therapy as given. We will obtain serial chemistries and supplement accordingly as needed. We will follow. Arianne Marte MD
--- NOTE | 2017-12-01 16:23 | RAD ---
Date of service: 12/01/2017 HISTORY: check picc line placement COMPARISON: No prior. FINDINGS: LUNGS: No active pulmonary disease. PLEURA: No significant pleural effusion identified, no pneumothorax apparent. CARDIOVASCULAR: No atherosclerotic calcification present PICC line in satisfactory position the tip is at the junction of the right SVC and internal jugular vein. OSSEOUS STRUCTURES: No significant abnormalities. VISUALIZED UPPER ABDOMEN: Normal. OTHER FINDINGS: None. IMPRESSION: No active disease. No significant interval change compared to the prior examination(s).
--- NOTE | 2017-12-01 16:50 | CP.PCM.PN ---
<Torito Ferrer - Last Filed: 12/01/17 17:10> Subjective - Date & Time of Evaluation Date of Evaluation: 12/01/17 Time of Evaluation: 16:47 - Subjective Subjective: Pt seen and examined this morning. Pt denies chest pain, SOB Objective - Vital Signs/Intake and Output Vital Signs (last 24 hours): Temp Pulse Resp BP Pulse Ox 98.3 F 97 H 20 84/50 L 97 12/01/17 08:39 12/01/17 08:39 12/01/17 08:39 12/01/17 08:39 12/01/17 08:39 Intake and Output: 12/01/17 12/01/17 06:59 18:59 Intake Total 2580 Output Total 800 Balance 1780 - Medications Medications: Current Medications Acetaminophen (Tylenol 160mg/5ml Oral Soln) 320 mg PO Q4 PRN PRN Reason: Pain, Mild (1-3) Last Admin: 11/24/17 17:42 Dose: 320 mg Cosyntropin (Cortrosyn) 0.25 mg IV ONCE ONE Stop: 12/02/17 06:31 Folic Acid (Folic Acid) 1 mg JT DAILY [facility] Last Admin: 12/01/17 10:43 Dose: 1 mg Heparin Sodium (Porcine) (Heparin) 5,000 units SC Q12 [facility]; Protocol Last Admin: 12/01/17 10:43 Dose: 5,000 units Potassium Chloride 30 meq/ (Sodium Chloride) 1,015 mls @ 40 mls/hr IV .Q24H [facility] Last Admin: 12/01/17 07:25 Dose: 40 mls/hr Ipratropium Adel (Atrovent) 0.5 mg IH [id number] [facility] Last Admin: 12/01/17 10:59 Dose: 0.5 mg Midodrine (Proamatine) 10 mg PO TID [facility] Last Admin: 12/01/17 15:14 Dose: 10 mg Nystatin (Nystatin Oral Susp) 5 ml PO QID [facility] Last Admin: 12/01/17 15:12 Dose: 5 ml Pantoprazole Sodium (Protonix Inj) 20 mg IVP Q12 [facility] Last Admin: 12/01/17 10:44 Dose: 20 mg Prednisone (Prednisone Tab) 10 mg PO DAILY [facility] Last Admin: 12/01/17 10:44 Dose: 10 mg Scopolamine (Transderm-Scop) 1 patch TD Q3D [facility] Last Admin: 11/28/17 18:11 Dose: 1 patch Tramadol HCl (Ultram) 50 mg GT TID PRN PRN Reason: Pain, moderate (4-7) Last Admin: 12/01/17 06:12 Dose: 50 mg - Labs Labs: 12/01/17 06:30 12/01/17 06:30 PT 11.6 SECONDS (9.4-12.5) 11/11/17 04:30 INR 1.02 11/11/17 04:30 APTT 26.9 Seconds (25.1-36.5) 11/11/17 04:30 - Constitutional Appears: No Acute Distress - Head Exam Head Exam: ATRAUMATIC, NORMAL INSPECTION, NORMOCEPHALIC - Eye Exam Eye Exam: EOMI - ENT Exam ENT Exam: Mucous Membranes Moist - Neck Exam Neck Exam: Full ROM - Cardiovascular Exam Cardiovascular Exam: Tachycardia, RRR, +S1, +S2. absent: Diastolic murmur, Murmur - GI/Abdominal Exam GI & Abdominal Exam: Soft, Normal Bowel Sounds Additional comments: j tube in place, no signs of infection - Extremities Exam Extremities Exam: Full ROM. absent: Calf Tenderness, Pedal Edema - Neurological Exam Neurological Exam: Alert, Awake, Oriented x3 - Psychiatric Exam Psychiatric exam: Normal Affect, Normal Mood - Skin Skin Exam: Dry, Intact, Warm Assessment and Plan - Assessment and Plan (Free Text) Assessment: 52 yo female with a PMH of alcohol abuse and cirrhosis, who was admitted for hematemesis. Patient subsequently found to have a large friable, fungating and ulcerative mass found in hypopharynx which was found to be squamous cell carcinoma on biopsy. Patient is NPO and is s/p jejunostomy tube insertion. Pt received 8 sessions of radiation starting on 11/16. Patient will have chemotherapy outpatient as per oncology. Patient with blood pressure lower than her baseline, will give 1 liter normal saline bolus and obtain cortisol levels. Will also obtain chest x-ray. Patient currently declining RONAL placement. Plan: Hematemesis, Dysphagia, secondary to squamous cell carcinoma - Radiation Oncology- Dr. Carrero - started radiation therapy on 11/16 (M-F daily), She will need 35 sessions total, to end on 01/05. - Pulm Consulted- Dr. Tilley- Will continue aspiration precautions, inhaled bronchodilator for upper airway secretions - Oncology consulted- Dr. Cleveland- On Cetuximab; further sessions as per Dr. Cleveland - ENT, Dr. Ren consulted- biopsy showed SCC - Continuous feeds during at night only at 60 ml/hr - Tramadol 50mg G-tube - Oral prednisone 10 mg - Psyc consulted, pt declined use of psychiatric medications Adrenal Insufficiency - Cortisol 3.0, 2.6 - Endocrinology, Dr Marte consulted, wait for completion of cosyntropin stimulation test, follow up on serial CMP to supplement as necessarily - Hypotension, continue to monitor Liver cirrhosis - CT abdomen: cirrhotic liver, no acute findings - GI, Dr. Herrera consulted for safety of Cetuximab in cirrhotic patient, agree with starting pt on cetuximab Thrombocytopenia - Plts 94 - Stable; no active bleeding - likely due to sequestration from cirrhosis as well as bone marrow suppression - Heme/onc and GI following Anemia - 11, stable - Hemodynamically stable Alcohol Abuse, Anxiety - Ativan 1 q6 PRN anxiety - aspiration, fall, and seizure precautions - Educated on cessation Ppx - Heparin - Protonix Pt seen, examined, assessment and plan discussed with Dr Cristina Ferrer PGY1, Internal Medicine Resident <Kofi Evans - Last Filed: 12/01/17 18:39> Objective - Vital Signs/Intake and Output Vital Signs (last 24 hours): Temp Pulse Resp BP Pulse Ox 98.3 F 97 H 20 84/50 L 97 12/01/17 08:39 12/01/17 08:39 12/01/17 08:39 12/01/17 08:39 12/01/17 08:39 Intake and Output: 12/01/17 12/01/17 06:59 18:59 Intake Total 2580 Output Total 800 Balance 1780 - Medications Medications: Current Medications Acetaminophen (Tylenol 160mg/5ml Oral Soln) 320 mg PO Q4 PRN PRN Reason: Pain, Mild (1-3) Last Admin: 11/24/17 17:42 Dose: 320 mg Cosyntropin (Cortrosyn) 0.25 mg IV ONCE ONE Stop: 12/02/17 06:31 Folic Acid (Folic Acid) 1 mg JT DAILY [facility] Last Admin: 12/01/17 10:43 Dose: 1 mg Heparin Sodium (Porcine) (Heparin) 5,000 units SC Q12 [facility]; Protocol Last Admin: 12/01/17 10:43 Dose: 5,000 units Potassium Chloride 30 meq/ (Sodium Chloride) 1,015 mls @ 40 mls/hr IV .Q24H [facility] Last Admin: 12/01/17 07:25 Dose: 40 mls/hr Ipratropium Adel (Atrovent) 0.5 mg IH [id number] [facility] Last Admin: 12/01/17 10:59 Dose: 0.5 mg Midodrine (Proamatine) 10 mg PO TID [facility] Last Admin: 12/01/17 15:14 Dose: 10 mg Nystatin (Nystatin Oral Susp) 5 ml PO QID [facility] Last Admin: 12/01/17 15:12 Dose: 5 ml Pantoprazole Sodium (Protonix Inj) 20 mg IVP Q12 [facility] Last Admin: 12/01/17 10:44 Dose: 20 mg Prednisone (Prednisone Tab) 10 mg PO DAILY [facility] Last Admin: 12/01/17 10:44 Dose: 10 mg Scopolamine (Transderm-Scop) 1 patch TD Q3D [facility] Last Admin: 11/28/17 18:11 Dose: 1 patch Tramadol HCl (Ultram) 50 mg GT TID PRN PRN Reason: Pain, moderate (4-7) Last Admin: 12/01/17 06:12 Dose: 50 mg - Labs Labs: 12/01/17 06:30 12/01/17 06:30 PT 11.6 SECONDS (9.4-12.5) 11/11/17 04:30 INR 1.02 11/11/17 04:30 APTT 26.9 Seconds (25.1-36.5) 11/11/17 04:30 Attending/Attestation - Attestation I have personally seen and examined this patient.: Yes I have fully participated in the care of the patient.: Yes I have reviewed all pertinent clinical information, including history, physical exam and plan: Yes Notes (Text): 12/01/17 18:36 52 year old female with past medical history of alcohol abuse who presented with hematemesis. She was found to have large, friable hypopharyngeal mass which was biopsied showed squamous cell carcinoma. She is s/p jejunostomy tube tolerating feeds. She is receiving radiation therapy. Hematology/oncology and pulmonary are following. Endocrinology is also following to rule out underlying adrenal insufficiency. Kofi Evans MD Hospitalist.
--- NOTE | 2017-12-01 20:24 | CP.PCM.PN ---
Subjective - Date & Time of Evaluation Date of Evaluation: 12/01/17 Time of Evaluation: 20:23 - Subjective Subjective: Hematology/Oncology Progress Note (Dr. Cleveland's Service) Patient seen and assessed at bedside. No acute events noted overnight. Patient denies any complaints at this time including fevers, chills, headache, chest pain, SOB, abdominal pain, N/V/D/C, changes in urine output, skin changes or any numbness/tingling/weakness of any extremity. Objective - Vital Signs/Intake and Output Vital Signs (last 24 hours): Temp Pulse Resp BP Pulse Ox 98.6 F 55 L 18 89/56 L 95 12/01/17 18:00 12/01/17 18:00 12/01/17 18:00 12/01/17 18:00 12/01/17 18:00 - Medications Medications: Current Medications Acetaminophen (Tylenol 160mg/5ml Oral Soln) 320 mg PO Q4 PRN PRN Reason: Pain, Mild (1-3) Last Admin: 11/24/17 17:42 Dose: 320 mg Cosyntropin (Cortrosyn) 0.25 mg IV ONCE ONE Stop: 12/02/17 06:31 Folic Acid (Folic Acid) 1 mg JT DAILY [facility] Last Admin: 12/01/17 10:43 Dose: 1 mg Heparin Sodium (Porcine) (Heparin) 5,000 units SC Q12 [facility]; Protocol Last Admin: 12/01/17 10:43 Dose: 5,000 units Potassium Chloride 30 meq/ (Sodium Chloride) 1,015 mls @ 40 mls/hr IV .Q24H [facility] Last Admin: 12/01/17 07:25 Dose: 40 mls/hr Ipratropium Wendell (Atrovent) 0.5 mg IH [id number] [facility] Last Admin: 12/01/17 10:59 Dose: 0.5 mg Midodrine (Proamatine) 10 mg PO TID [facility] Last Admin: 12/01/17 18:41 Dose: 10 mg Nystatin (Nystatin Oral Susp) 5 ml PO QID [facility] Last Admin: 12/01/17 18:41 Dose: 5 ml Pantoprazole Sodium (Protonix Inj) 20 mg IVP Q12 [facility] Last Admin: 12/01/17 10:44 Dose: 20 mg Prednisone (Prednisone Tab) 10 mg PO DAILY [facility] Last Admin: 12/01/17 10:44 Dose: 10 mg Scopolamine (Transderm-Scop) 1 patch TD Q3D [facility] Last Admin: 12/01/17 18:42 Dose: 1 patch Tramadol HCl (Ultram) 50 mg GT TID PRN PRN Reason: Pain, moderate (4-7) Last Admin: 12/01/17 06:12 Dose: 50 mg - Labs Labs: 12/01/17 06:30 12/01/17 06:30 PT 11.6 SECONDS (9.4-12.5) 11/11/17 04:30 INR 1.02 11/11/17 04:30 APTT 26.9 Seconds (25.1-36.5) 11/11/17 04:30 - Constitutional Appears: Non-toxic, No Acute Distress - Head Exam Head Exam: ATRAUMATIC, NORMOCEPHALIC - Eye Exam Eye Exam: EOMI, Normal appearance - ENT Exam ENT Exam: Mucous Membranes Moist - Neck Exam Neck Exam: Full ROM - Respiratory Exam Respiratory Exam: Clear to Ausculation Bilateral, NORMAL BREATHING PATTERN. absent: Rales, Rhonchi, Wheezes - Cardiovascular Exam Cardiovascular Exam: REGULAR RHYTHM, RRR, +S1, +S2 - GI/Abdominal Exam GI & Abdominal Exam: Soft, Normal Bowel Sounds. absent: Tenderness Additional comments: J-tube in place without signs of clinical infection in the surrounding soft tissues - Extremities Exam Extremities Exam: Normal Inspection - Neurological Exam Neurological Exam: Alert, Awake, Oriented x3 - Psychiatric Exam Psychiatric exam: Normal Affect, Normal Mood - Skin Skin Exam: Dry, Intact, Normal Color, Warm Assessment and Plan - Assessment and Plan (Free Text) Assessment: 52 year old female with a past medical history significant for alcohol abuse, alcoholic cirrhosis, pancytopenia likely secondary to alcohol induced bone faustino ow suppression, rheumatoid arthritis and a polyploid friable hypopharyngeal lesion (noted on endoscopy in 2017) who was admitted for hematemesis, weakness and progressive dysphagia. Intraluminal esophageal lesion was noted on imaging and a large friable hypopharyngeal mass completely obstructing the airway was seen on upper endoscopy and laryngoscopy. 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 Patient has been started on XRT and is currently scheduled for 35 sessions total to end 01/05, daily Thursday-Thursday; she also needs to be optimized nutritionally. Patient and supporting family members, patients brother, have both spoken to Dr. Cleveland and are in agreement to have chemotherapy with Cetuximab. Hematology/Oncology still needs to obtain consent and will do so when patients brother is at bedside, per patient request. Plan: -Continue XRT with Radiation Oncology, Dr. Carrero, all recommendations appreciated -Will obtain consent for Cetuximab therapy; She will require weekly therapy -ID consulted, all recommendations appreciated; Currently being monitored off of antibiotics -GI consulted, all recommendations appreciated; In agreement with choice of Cetuximab given her history of cirrhosis -Nephrology consulted, all recommendations appreciated -Continue tube feedings and IV hydration as ordered -HPV serology negative -Further recommendations per Dr. Cleveland Patient seen and case discussed with attending, Dr. Cleveland. Edilberto Martin PGY2
--- NOTE | 2017-12-01 22:59 | PN ---
DATE: 12/01/2017 PULMONARY PROGRESS NOTE REFERRING PHYSICIAN: Dr. Evans. SUBJECTIVE: She is lying in the bed, head at 45 degrees. Night was unremarkable. Still has some cough. No hemoptysis. Tolerating continuous feeding well. No diarrhea. No leg pain. No leg swelling. PHYSICAL EXAMINATION: GENERAL: In no acute distress. VITAL SIGNS: Temperature is 98, heart rate is 55, respiratory rate is 18, blood pressure 89/56, pulse ox 95% on room air. HEENT: Moist mucous membrane. Crowded airway. NECK: Supple. No JVD. LUNGS: Have a fair airflow with few rhonchi. HEART: S1 and S2. ABDOMEN: Soft and nontender. No organomegaly. EXTREMITIES: There is no edema. NEUROLOGIC: Awake, alert. Follows simple command. MEDICATIONS: She is on Atrovent inhaled every 4 hours, Cortrosyn 0.25 mg IV was given, folic acid 1 mg daily, heparin 5000 units subcu every 12 hours, potassium supplement, prednisone 10 mg daily, midodrine 10 mg three times a day, Protonix 20 mg every 12 hours, Transderm scopolamine patch every 3 days, Tylenol p.r.n., Ultram 50 mg every 8 hours p.r.n., Xanax 0.25 mg twice a day p.r.n. basis. LABORATORY DATA: Shows hemoglobin 11.4, hematocrit 36.4, WBC 5.5, platelet count is 94. INR is 1.02, PTT is 27. Sodium 139, potassium 3.9, chloride 106, bicarbonate 29, BUN 13, creatinine 0.4, calcium is 8.1. AST 18, ALT 21, alk phos is 48, albumin is 2.7. 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 Presently on continuous feeding on the gastrostomy tube, is tolerating well. Pulmonary point of view, she is doing okay, keep head up 45 degrees. Out of bed to chair. Bronchodilator. Pulmonary toilet. Gastric prophylaxis. Sequential compression devices to lower extremity. Thank you and we will follow with you. Aden Tilley MD [facility] # [id number]
[2017-12-02] MEDS: Ipratropium 0.02% Inhal Soln (0.5 mg/2.5 ml) UD IH SCH ×6 (00:30→20:42)
[2017-12-02 05:47] LABS: BASO # 0.01 K/mm3 (0.0-2.0); BASO % 0.1 % (0.0-3.0); EOS # 0.1 (0.0-0.7); GRAN # 5.84 (1.4-6.5); GRAN % 84.2 % (50.0-68.0); HEMOGLOBIN 11.5 g/dL (12.0-16.0); LYMPH # 0.3 (1.2-3.4); LYMPH % 4.8 % (22.0-35.0); MEAN CELL VOLUME 100.6 fl (80.0-105.0); MEAN CORPUSCULAR HEMOGLOBIN 32.5 pg (25.0-35.0); MEAN CORPUSCULAR HGB CONC 32.3 g/dl (31.0-37.0); MEAN PLATELET VOLUME 11.7 fl (7.0-11.0); MONO # 0.7 (0.1-0.6); MONO % 9.9 % (1.0-6.0); RBC 3.54 10^6/uL (3.5-6.1); RED CELL DISTRIBUTION WIDTH 15.6 % (11.5-14.5); WHITE BLOOD COUNT 6.9 10^3/ul (4.5-11.0)
[2017-12-02 05:52] LABS: ALBUMIN 2.7 g/dL (3.0-4.8); ALT/SGPT 21 U/L (7-56); AST/SGOT 24 U/L (14-36); BLOOD UREA NITROGEN 18 mg/dL (7-21); CALCIUM 8.3 mg/dL (8.4-10.5); GFR NON-AFRICAN AMERICAN > 60
[2017-12-02] MEDS ORDERED: Lidocaine 2% Inj (20ml) ONE ×2 (09:38→10:02)
[2017-12-02] MEDS ORDERED: Midazolam 2 MG/2 ML VIAL ONE ×2 (10:17→10:35)
[2017-12-02] MEDS: Nystatin 100,000 Units/ml Oral Susp 5 ml UD PO SCH ×4 (11:11→21:47)
[2017-12-02] MEDS ORDERED: Sodium Chloride 0.45% 1,000 ML IV SCH (11:15)
--- NOTE | 2017-12-02 11:32 | VASCULAR ---
PROCEDURE: Ultrasound and fluoroscopic right internal jugular venous access port. CLINICAL HISTORY: Laryngeal carcinoma. Venous port for chemotherapy. PHYSICIAN(S): Andres Lagos M.D. TECHNIQUE: The relative risks and indications of the procedure were explained to the patient and consent obtained. The patient was placed supine on the arteriogram table and the right neck and chest prepped and draped in the usual sterile fashion. Conscious sedation monitoring was provided throughout the procedure by a nurse. Antibiotics were given prior to the procedure. Under direct ultrasound guidance, the internal jugular vein was punctured with a micro-puncture set. A 0.035 angled Glidewire was advanced into the IVC. A 4 cm incision was made below the right clavicle and the pocket blunted dissected. A 8 Yoruba single-lumen catheter, 19 cm long, was advanced to the SVC/RA junction. The catheter was trimmed and attached to the port. The port aspirates and injects easily. The port was placed in the pocket and closed in 2 layers. An access needle was placed. The patient tolerated the procedure well. IMPRESSION: Ultrasound and fluoroscopically placed right internal jugular venous access port.
--- NOTE | 2017-12-02 14:09 | CP.PCM.PN ---
Subjective - Date & Time of Evaluation Date of Evaluation: 12/02/17 Time of Evaluation: 14:06 - Subjective Subjective: Hematology/Oncology Progress Note (Dr. Cleveland's Service) Patient seen and assessed at bedside. Patient had an episode of anxiety overni ght and was started on PRN anti-anxiety medication. No other acute events noted overnight. Patient denies any further complaints at this time including fevers, chills, headache, chest pain, SOB, abdominal pain, N/V/D/C, changes in urine output, skin changes or any numbness/tingling of any extremity. Objective - Vital Signs/Intake and Output Vital Signs (last 24 hours): Temp Pulse Resp BP Pulse Ox 97.8 F 94 H 17 95/64 L 98 12/02/17 11:35 12/02/17 11:35 12/02/17 11:35 12/02/17 11:35 12/02/17 11:35 Intake and Output: 12/02/17 12/02/17 06:59 18:59 Intake Total 1200 Output Total 350 Balance 850 - Medications Medications: Current Medications Acetaminophen (Tylenol 160mg/5ml Oral Soln) 320 mg PO Q4 PRN PRN Reason: Pain, Mild (1-3) Last Admin: 11/24/17 17:42 Dose: 320 mg Acetaminophen (Tylenol 325mg Tab) 650 mg PO Q4 PRN PRN Reason: Pain, Mild (1-3) Alprazolam (Xanax) 0.5 mg PEG BID PRN; Protocol PRN Reason: Anxiety Last Admin: 12/02/17 12:25 Dose: 0.5 mg Folic Acid (Folic Acid) 1 mg JT DAILY [facility] Last Admin: 12/02/17 11:10 Dose: 1 mg Heparin Sodium (Porcine) (Heparin) 5,000 units SC Q12 LIZ; Protocol Last Admin: 12/02/17 12:10 Dose: Not Given Potassium Chloride 30 meq/ (Sodium Chloride) 1,015 mls @ 40 mls/hr IV .Q24H [facility] Last Admin: 12/01/17 07:25 Dose: 40 mls/hr Sodium Chloride (Sodium Chloride 0.45%) 1,000 mls @ 80 mls/hr IV .[id number] [facility] Stop: 12/03/17 08:00 Ipratropium [place] (Atrovent) 0.5 mg IH [id number] [facility] Last Admin: 12/02/17 11:01 Dose: Not Given Midodrine (Proamatine) 10 mg PO TID [facility] Last Admin: 12/02/17 11:12 Dose: 10 mg Nystatin (Nystatin Oral Susp) 5 ml PO QID [facility] Last Admin: 12/02/17 11:11 Dose: 5 ml Ondansetron HCl (Zofran Inj) 4 mg IVP Q6H PRN PRN Reason: Nausea/Vomiting Pantoprazole Sodium (Protonix Inj) 20 mg IVP Q12 [facility] Last Admin: 12/02/17 11:09 Dose: 20 mg Prednisone (Prednisone Tab) 10 mg PO DAILY [facility] Last Admin: 12/02/17 11:11 Dose: 10 mg Scopolamine (Transderm-Scop) 1 patch TD Q3D [facility] Last Admin: 12/01/17 18:42 Dose: 1 patch Tramadol HCl (Ultram) 50 mg GT TID PRN PRN Reason: Pain, moderate (4-7) Last Admin: 12/01/17 06:12 Dose: 50 mg - Labs Labs: 12/02/17 05:20 12/02/17 05:20 PT 11.6 SECONDS (9.4-12.5) 11/11/17 04:30 INR 1.02 11/11/17 04:30 APTT 26.9 Seconds (25.1-36.5) 11/11/17 04:30 - Constitutional Appears: Non-toxic, No Acute Distress - Head Exam Head Exam: ATRAUMATIC, NORMOCEPHALIC - Eye Exam Eye Exam: EOMI, Normal appearance - ENT Exam ENT Exam: Mucous Membranes Moist - Neck Exam Neck Exam: Full ROM - Respiratory Exam Respiratory Exam: Clear to Ausculation Bilateral, NORMAL BREATHING PATTERN. absent: Accessory Muscle Use, Rales, Rhonchi, Wheezes, Respiratory Distress - Cardiovascular Exam Cardiovascular Exam: RRR, +S1, +S2 - GI/Abdominal Exam GI & Abdominal Exam: Soft, Normal Bowel Sounds. absent: Tenderness Additional comments: j-tube in place without signs of clinical infection of surrounding soft tissues - Extremities Exam Extremities Exam: Full ROM, Normal Capillary Refill, Normal Inspection. absent: Calf Tenderness, Joint Swelling, Pedal Edema, Tenderness - Neurological Exam Neurological Exam: Alert, Awake, Oriented x3 - Psychiatric Exam Psychiatric exam: Normal Affect, Normal Mood - Skin Skin Exam: Dry, Intact, Normal Color, Warm Assessment and Plan - Assessment and Plan (Free Text) Assessment: 52 year old female with a past medical history significant for alcohol abuse, alcoholic cirrhosis, pancytopenia likely secondary to alcohol induced bone marrow suppression, rheumatoid arthritis and a polyploid friable hypopharyngeal lesion (noted on endoscopy in 2017) who was admitted for hematemesis, weakness and progressive dysphagia. Intraluminal esophageal lesion was noted on imaging and a large friable hypopharyngeal mass completely obstructing the airway was seen on upper endoscopy and laryngoscopy. 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 Patient has been started on XRT and is currently scheduled for 35 sessions total to end 01/05, daily Thursday-Thursday; she also needs to be optimized nutritionally. Patient and supporting family members, patients brother, have both spoken to Dr. Cleveland and are in agreement to have chemotherapy with Cetuximab. Hematology/Oncology still needs to obtain consent and will do so when patients brother is at bedside, per patient request, prior to discharge. Plan: -Patient to get port for chemotherapy today with IR -Continue XRT with Radiation Oncology, Dr. Carrero, all recommendations appreciated -Will obtain consent for Cetuximab therapy; She will require weekly therapy -ID consulted, all recommendations appreciated; Currently being monitored off of antibiotics -GI consulted, all recommendations appreciated; In agreement with choice of Ce tuximab given her history of cirrhosis -Nephrology consulted, all recommendations appreciated -Continue tube feedings and IV hydration as ordered; Vital AF 1.2 at 60mls/hr from 1800 to 0900 nightly -HPV serology negative -Further recommendations per Dr. Cleveland Patient seen and case discussed with attending, Dr. Cleveland. Edilberto Martin PGY2
--- NOTE | 2017-12-02 14:36 | PN ---
DATE: 12/02/2017 SUBJECTIVE: The patient is in bed, in no acute distress. PHYSICAL EXAMINATION: VITAL SIGNS: Temperature is 98, blood pressure is 80/50, respiratory rate of 18. HEENT: Unremarkable. NECK: Supple. LUNGS: Have decreased breath sounds. HEART: Normal S1 and S2. ABDOMEN: Soft. LABORATORY EXAMINATION: Reveals a white count of 6.9, hemoglobin of 11, platelets of 102. Urinalysis is noted. Microbiology is reviewed. ASSESSMENT AND PLAN: A 52-year-old female with laryngeal cancer squamous cell type, currently receiving radiation and possible adrenal insufficiency, liver cirrhosis, alcohol abuse, anxiety, depression, squamous cell laryngeal cancer currently, now off of antibiotics, afebrile. The patient is at risk for developing nosocomial infections. Yunior Hdz MD
--- NOTE | 2017-12-02 15:52 | PN ---
DATE: 12/02/2017 PULMONARY PROGRESS NOTE REFERRING PHYSICIAN: Dr. Evans. SUBJECTIVE: She is lying in the bed, sleepy, arousable. Has a routine cough, but no hemoptysis. No chest pain. No nausea. No more diarrhea. OBJECTIVE: GENERAL: In no acute distress. VITAL SIGNS: Temperature is 98, heart rate is 94, respiratory rate is 18, blood pressure 95/65, pulse ox 98% on 3 L nasal cannula. HEENT: Moist mucous membrane. No ulcer or thrush noted. NECK: Supple. No JVD. LUNGS: Have a fair airflow with few rhonchi. HEART: S1 and S2. ABDOMEN: Soft and nontender. Nondistended. G-tube area looks okay. EXTREMITIES: There is no edema. NEUROLOGICAL: Sleepy, arousable. Follows simple command. MEDICATIONS: She is on Atrovent inhaled every 4 hours, folic acid 1 mg daily, heparin 5000 units subcu every 12 hours, nystatin 5 mL four times a day, potassium supplement, prednisone 10 mg daily, ProAmatine 10 mg three times a day, Protonix 20 mg every 12 hours, IV fluid half normal saline 80 mL/hour, transdermal scopolamine patch every 3 days, Tylenol p.r.n., Ultram is 50 mg G-tube three times a day p.r.n., Xanax 0.5 mg twice a day p.r.n., Zofran 4 mg IV every 6 hours p.r.n. LABORATORY DATA: Shows hemoglobin 11.5, hematocrit 35.6, WBC 6.9, platelet is 102. Sodium 141, potassium 3.7, chloride 107, bicarbonate 26, BUN 18, creatinine 0.4, glucose is 110, calcium is 8.3, AST 24, ALT 21, alk phos is 48, albumin is 2.7. Cortisol level today is 20. 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 Pulmonary point of view, she is doing well, keep head at 45 degrees. Bronchodilators. On steroids. Fair response to adrenal gland challenge. Gastric and deep venous thrombosis prophylaxis. Out of bed to chair. Physical therapy. Thank you and we will follow with you. Aden Tilley MD [facility] # [id number]
--- NOTE | 2017-12-02 16:32 | CP.PCM.PN ---
<Torito Ferrer - Last Filed: 12/02/17 16:45> Subjective - Date & Time of Evaluation Date of Evaluation: 12/02/17 Time of Evaluation: 07:00 - Subjective Subjective: Pt seen and examined this morning. Pt denies chest pain, SOB Objective - Vital Signs/Intake and Output Vital Signs (last 24 hours): Temp Pulse Resp BP Pulse Ox 97.8 F 94 H 17 95/64 L 98 12/02/17 11:35 12/02/17 11:35 12/02/17 11:35 12/02/17 11:35 12/02/17 11:35 Intake and Output: 12/02/17 12/02/17 06:59 18:59 Intake Total 1200 Output Total 350 Balance 850 - Medications Medications: Current Medications Acetaminophen (Tylenol 160mg/5ml Oral Soln) 320 mg PO Q4 PRN PRN Reason: Pain, Mild (1-3) Last Admin: 11/24/17 17:42 Dose: 320 mg Acetaminophen (Tylenol 325mg Tab) 650 mg PO Q4 PRN PRN Reason: Pain, Mild (1-3) Alprazolam (Xanax) 0.5 mg PEG BID PRN; Protocol PRN Reason: Anxiety Last Admin: 12/02/17 12:25 Dose: 0.5 mg Folic Acid (Folic Acid) 1 mg JT DAILY [facility] Last Admin: 12/02/17 11:10 Dose: 1 mg Heparin Sodium (Porcine) (Heparin) 5,000 units SC Q12 LIZ; Protocol Last Admin: 12/02/17 12:10 Dose: Not Given Potassium Chloride 30 meq/ (Sodium Chloride) 1,015 mls @ 40 mls/hr IV .Q24H [facility] Last Admin: 12/01/17 07:25 Dose: 40 mls/hr Sodium Chloride (Sodium Chloride 0.45%) 1,000 mls @ 80 mls/hr IV .[id number] [facility] Stop: 12/03/17 08:00 Ipratropium [place] (Atrovent) 0.5 mg IH [id number] [facility] Last Admin: 12/02/17 11:01 Dose: Not Given Midodrine (Proamatine) 10 mg PO TID LIZ Last Admin: 12/02/17 15:37 Dose: 10 mg Nystatin (Nystatin Oral Susp) 5 ml PO QID LIZ Last Admin: 12/02/17 15:37 Dose: 5 ml Ondansetron HCl (Zofran Inj) 4 mg IVP Q6H PRN PRN Reason: Nausea/Vomiting Pantoprazole Sodium (Protonix Inj) 20 mg IVP Q12 [facility] Last Admin: 12/02/17 11:09 Dose: 20 mg Prednisone (Prednisone Tab) 10 mg PO DAILY [facility] Last Admin: 12/02/17 11:11 Dose: 10 mg Scopolamine (Transderm-Scop) 1 patch TD Q3D [facility] Last Admin: 12/01/17 18:42 Dose: 1 patch Tramadol HCl (Ultram) 50 mg GT TID PRN PRN Reason: Pain, moderate (4-7) Last Admin: 12/01/17 06:12 Dose: 50 mg - Labs Labs: 12/02/17 05:20 12/02/17 05:20 PT 11.6 SECONDS (9.4-12.5) 11/11/17 04:30 INR 1.02 11/11/17 04:30 APTT 26.9 Seconds (25.1-36.5) 11/11/17 04:30 - Constitutional Appears: Non-toxic, No Acute Distress - Head Exam Head Exam: ATRAUMATIC, NORMAL INSPECTION, NORMOCEPHALIC - Eye Exam Eye Exam: EOMI - ENT Exam ENT Exam: Mucous Membranes Moist - Neck Exam Neck Exam: Full ROM - Respiratory Exam Respiratory Exam: Clear to Ausculation Bilateral, NORMAL BREATHING PATTERN. absent: Accessory Muscle Use, Wheezes, Respiratory Distress - Cardiovascular Exam Cardiovascular Exam: RRR, +S1, +S2. absent: Diastolic murmur, Murmur Additional comments: pt had port-a-cath placed today, bandaged, pt reports minimal pain - GI/Abdominal Exam GI & Abdominal Exam: Soft, Normal Bowel Sounds Additional comments: j tube in place - Extremities Exam Extremities Exam: Full ROM, Normal Inspection. absent: Pedal Edema, Tenderness - Neurological Exam Neurological Exam: Alert, Awake, Oriented x3 - Psychiatric Exam Psychiatric exam: Normal Affect, Normal Mood - Skin Skin Exam: Dry, Normal Color, Warm Assessment and Plan - Assessment and Plan (Free Text) Assessment: 52 yo female with a PMH of alcohol abuse and cirrhosis, who was admitted for hematemesis. Patient subsequently found to have a large friable, fungating and ulcerative mass found in hypopharynx which was found to be squamous cell carcinoma on biopsy. Patient is NPO and is s/p jejunostomy tube insertion. Pt received 8 sessions of radiation starting on 11/16. Patient will have chemotherapy outpatient as per oncology. Patient with blood pressure lower than her baseline, will give 1 liter normal saline bolus and obtain cortisol levels. Will also obtain chest x-ray. Patient currently declining RONAL placement. Plan: Hematemesis, Dysphagia, secondary to squamous cell carcinoma - Radiation Oncology- Dr. Carrero - started radiation therapy on 11/16 (M-F daily), She will need 35 sessions total, to end on 01/05. - Pulm Consulted- Dr. Tilley- Will continue aspiration precautions, inhaled bronchodilator for upper airway secretions - Oncology consulted- Dr. Cleveland- On Cetuximab; further sessions as per Dr. Cleveland, Pt has out pt appointment on December 10, 2017 - ENT, Dr. Ren consulted- biopsy showed SCC - Continuous feeds Osmolite at 70ml/hr for 20 hours - Tramadol 50mg G-tube - Oral prednisone taper to 5 mg for the next 7 days, per Dr Marte - Psyc consulted, pt declined use of psychiatric medications Adrenal Insufficiency - Endocrinology, Dr Marte, spoke with today, recommends 5mg prednisone taper for the next 7 days - Hypotension, continue to monitor Liver cirrhosis - CT abdomen: cirrhotic liver, no acute findings - GI, Dr. Herrera consulted for safety of Cetuximab in cirrhotic patient, agree with starting pt on cetuximab Thrombocytopenia - Plts 102 - Heme/onc and GI following Anemia - 11.5, stable - Hemodynamically stable Alcohol Abuse, Anxiety - Xanax 0.5 BID - aspiration, fall, and seizure precautions - Educated on cessation Ppx - Heparin - Protonix Dispo: pt needs to sign consent for chemotherapy before leaving, tube feed education and home health Pt seen, examined, assessment and plan discussed with Dr Cristina Ferrer PGY1, Internal Medicine Resident <Kofi Evans - Last Filed: 12/03/17 07:23> Objective - Vital Signs/Intake and Output Vital Signs (last 24 hours): Temp Pulse Resp BP Pulse Ox 98.4 F 95 H 19 84/52 L 93 L 12/02/17 17:40 12/03/17 06:00 12/02/17 17:40 12/02/17 17:40 12/02/17 17:40 - Medications Medications: Current Medications Acetaminophen (Tylenol 160mg/5ml Oral Soln) 320 mg PO Q4 PRN PRN Reason: Pain, Mild (1-3) Last Admin: 11/24/17 17:42 Dose: 320 mg Acetaminophen (Tylenol 325mg Tab) 650 mg PO Q4 PRN PRN Reason: Pain, Mild (1-3) Alprazolam (Xanax) 0.5 mg PEG BID PRN; Protocol PRN Reason: Anxiety Last Admin: 12/02/17 12:25 Dose: 0.5 mg Folic Acid (Folic Acid) 1 mg JT DAILY [facility] Last Admin: 12/02/17 11:10 Dose: 1 mg Heparin Sodium (Porcine) (Heparin) 5,000 units SC Q12 [facility]; Protocol Last Admin: 12/02/17 21:48 Dose: Not Given Potassium Chloride 30 meq/ (Sodium Chloride) 1,015 mls @ 40 mls/hr IV .Q24H [facility] Last Admin: 12/01/17 07:25 Dose: 40 mls/hr Sodium Chloride (Sodium Chloride 0.45%) 1,000 mls @ 80 mls/hr IV .[id number] [facility] Stop: 12/03/17 08:00 Ipratropium [place] (Atrovent) 0.5 mg IH [id number] [facility] Last Admin: 12/03/17 04:00 Dose: Not Given Midodrine (Proamatine) 10 mg PO TID [facility] Last Admin: 12/02/17 17:52 Dose: 10 mg Nystatin (Nystatin Oral Susp) 5 ml PO QID [facility] Last Admin: 12/02/17 21:47 Dose: 5 ml Ondansetron HCl (Zofran Inj) 4 mg IVP Q6H PRN PRN Reason: Nausea/Vomiting Pantoprazole Sodium (Protonix Inj) 20 mg IVP Q12 [facility] Last Admin: 12/02/17 21:45 Dose: 20 mg Prednisone (Prednisone Tab) 5 mg PO DAILY [facility] Scopolamine (Transderm-Scop) 1 patch TD Q3D [facility] Last Admin: 12/01/17 18:42 Dose: 1 patch Tramadol HCl (Ultram) 50 mg GT TID PRN PRN Reason: Pain, moderate (4-7) Last Admin: 12/02/17 17:53 Dose: 50 mg - Labs Labs: 12/03/17 06:10 12/03/17 06:10 PT 11.6 SECONDS (9.4-12.5) 11/11/17 04:30 INR 1.02 11/11/17 04:30 APTT 26.9 Seconds (25.1-36.5) 11/11/17 04:30 Attending/Attestation - Attestation I have personally seen and examined this patient.: Yes I have fully participated in the care of the patient.: Yes I have reviewed all pertinent clinical information, including history, physical exam and plan: Yes Notes (Text): 12/02/17 52 year old female with past medical history of alcohol abuse who presented with hematemesis. She was found to have large, friable hypopharyngeal mass which was biopsied showed squamous cell carcinoma. She is s/p jejunostomy tube tolerating feeds. She is receiving radiation therapy. Hematology/oncology and pulmonary are following. Plan is for port placement today for chemotherapy in future. Endocrinology is also following to rule out underlying adrenal insufficiency. training program manager and instrumentation instructor follow up appreciated for d/c planning with arrangement of home services and tube feeds. Kofi Evans MD Hospitalist.
--- NOTE | 2017-12-02 16:33 | PN ---
DATE: 12/02/2017 ENDO FOLLOWUP NOTE LOCATION: In room 370. SUBJECTIVE: This is a 52-year-old female with recent diagnosis of laryngeal cell carcinoma, currently undergoing radiation therapy and is also being followed closely for metabolic management and the possibility of adrenal insufficiency thereof. Her current chemistries today showed a BUN of 18, sodium 141, potassium 3.7, chloride 107, CO2 of 29, glucose 110 and creatinine 0.4. Her cortisol level done fasting today was 5.1 mcg/dL and she received Cortrosyn at 250 mcg IV push as given this morning. The random 1 hour post stimulation cortisol level was 20.4 mcg/dL, which is actually a normal response to ACTH given, thus excluding the possibility of underlying adrenal insufficiency. No indication at this time for any kind of ongoing steroid therapy from the endocrine view point. She was apparently given prednisone therapy for transient relief of bronchospasm by the crab butcher and would advise a tapering down to a maintenance dose of at least 5 mg upon discharge and would follow up with the medical doctor accordingly. Arianne Marte MD
[2017-12-03] MEDS: Ipratropium 0.02% Inhal Soln (0.5 mg/2.5 ml) UD IH SCH ×4 (04:00→11:20)
[2017-12-03 06:44] LABS: ALBUMIN 2.8 g/dL (3.0-4.8); ALT/SGPT 27 U/L (7-56); AST/SGOT 25 U/L (14-36); BLOOD UREA NITROGEN 12 mg/dL (7-21); CALCIUM 8.5 mg/dL (8.4-10.5); GFR NON-AFRICAN AMERICAN > 60
[2017-12-03 06:56] LABS: BASO # 0.01 K/mm3 (0.0-2.0); BASO % 0.1 % (0.0-3.0); EOS % 0.1 % (1.5-5.0); GRAN # 6.52 (1.4-6.5); GRAN % 84.5 % (50.0-68.0); HEMOGLOBIN 11.8 g/dL (12.0-16.0); LYMPH # 0.4 (1.2-3.4); LYMPH % 5.2 % (22.0-35.0); MEAN CELL VOLUME 100.8 fl (80.0-105.0); MEAN CORPUSCULAR HEMOGLOBIN 31.9 pg (25.0-35.0); MEAN CORPUSCULAR HGB CONC 31.6 g/dl (31.0-37.0); MEAN PLATELET VOLUME 11.9 fl (7.0-11.0); MONO # 0.8 (0.1-0.6); MONO % 10.1 % (1.0-6.0); RBC 3.7 10^6/uL (3.5-6.1); RED CELL DISTRIBUTION WIDTH 15.6 % (11.5-14.5); WHITE BLOOD COUNT 7.7 10^3/ul (4.5-11.0)
--- NOTE | 2017-12-03 08:46 | CP.PCM.PN ---
Subjective - Date & Time of Evaluation Date of Evaluation: 12/03/17 Time of Evaluation: 08:46 - Subjective Subjective: Hematology/Oncology Progress Note (Dr. Cleveland's Service) Patient seen and assessed at bedside. No acute events noted overnight. Patient reports that she is ready to be discharged home. Patient denies any further complaints at this time including fevers, chills, headache, chest pain, SOB, abdominal pain, N/V/D/C, changes in urine output, skin changes or any numbness/tingling of any extremity. Objective - Vital Signs/Intake and Output Vital Signs (last 24 hours): Temp Pulse Resp BP Pulse Ox 98.4 F 95 H 19 84/52 L 93 L 12/02/17 17:40 12/03/17 06:00 12/02/17 17:40 12/02/17 17:40 12/02/17 17:40 - Medications Medications: Current Medications Acetaminophen (Tylenol 160mg/5ml Oral Soln) 320 mg PO Q4 PRN PRN Reason: Pain, Mild (1-3) Last Admin: 11/24/17 17:42 Dose: 320 mg Acetaminophen (Tylenol 325mg Tab) 650 mg PO Q4 PRN PRN Reason: Pain, Mild (1-3) Alprazolam (Xanax) 0.5 mg PEG BID PRN; Protocol PRN Reason: Anxiety Last Admin: 12/02/17 12:25 Dose: 0.5 mg Folic Acid (Folic Acid) 1 mg JT DAILY [facility] Last Admin: 12/02/17 11:10 Dose: 1 mg Heparin Sodium (Porcine) (Heparin) 5,000 units SC Q12 LIZ; Protocol Last Admin: 12/02/17 21:48 Dose: Not Given Potassium Chloride 30 meq/ (Sodium Chloride) 1,015 mls @ 40 mls/hr IV .Q24H LIZ Last Admin: 12/01/17 07:25 Dose: 40 mls/hr Ipratropium [place] (Atrovent) 0.5 mg IH [id number] [facility] Last Admin: 12/03/17 08:01 Dose: Not Given Midodrine (Proamatine) 10 mg PO TID [facility] Last Admin: 12/02/17 17:52 Dose: 10 mg Nystatin (Nystatin Oral Susp) 5 ml PO QID [facility] Last Admin: 12/02/17 21:47 Dose: 5 ml Ondansetron HCl (Zofran Inj) 4 mg IVP Q6H PRN PRN Reason: Nausea/Vomiting Pantoprazole Sodium (Protonix Inj) 20 mg IVP Q12 [facility] Last Admin: 12/02/17 21:45 Dose: 20 mg Prednisone (Prednisone Tab) 5 mg PO DAILY [facility] Scopolamine (Transderm-Scop) 1 patch TD Q3D [facility] Last Admin: 12/01/17 18:42 Dose: 1 patch Tramadol HCl (Ultram) 50 mg GT TID PRN PRN Reason: Pain, moderate (4-7) Last Admin: 12/02/17 17:53 Dose: 50 mg - Labs Labs: 12/03/17 06:10 12/03/17 06:10 PT 11.6 SECONDS (9.4-12.5) 11/11/17 04:30 INR 1.02 11/11/17 04:30 APTT 26.9 Seconds (25.1-36.5) 11/11/17 04:30 - Constitutional Appears: Non-toxic, No Acute Distress - Head Exam Head Exam: ATRAUMATIC, NORMOCEPHALIC - Eye Exam Eye Exam: EOMI, Normal appearance - ENT Exam ENT Exam: Mucous Membranes Moist - Neck Exam Neck Exam: Full ROM, Normal Inspection - Respiratory Exam Respiratory Exam: Clear to Ausculation Bilateral, NORMAL BREATHING PATTERN. absent: Accessory Muscle Use, Rales, Rhonchi, Wheezes, Respiratory Distress Additional comments: Right chest wall port dressing clean, dry and intact without signs of clinical infection of surrounding soft tissues - Cardiovascular Exam Cardiovascular Exam: RRR, +S1, +S2 - GI/Abdominal Exam GI & Abdominal Exam: Soft, Normal Bowel Sounds. absent: Distended, Firm, Guarding, Rigid, Tenderness Additional comments: j-tube stable in place without signs of clinical infection of surrounding soft tissues - Extremities Exam Extremities Exam: Normal Capillary Refill. 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 Intraluminal esophageal lesion was noted on imaging and a large friable hypopharyngeal mass completely obstructing the airway was seen on upper endoscopy and laryngoscopy. 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 Patient has been started on XRT and is currently scheduled for 35 sessions total to end 01/05, daily Thursday-Thursday; she also needs to be optimized nutritionally. Patient and supporting family members, patients brother, have both spoken to Dr. Cleveland and are in agreement to have chemotherapy with Cetuximab with consents having already been signed. Plan: -Continue XRT as an outpatient with Radiation Oncology, Dr. Carrero, all recommendations appreciated -Consent for Cetuximab therapy obtained; She will require weekly therapy -ID consulted, all recommendations appreciated; Currently being monitored off of antibiotics -GI consulted, all recommendations appreciated; In agreement with choice of Cetuximab given her history of cirrhosis -Nephrology consulted, all recommendations appreciated -Continue tube feedings and IV hydration as ordered; Osmolite 1.0 at 60mls/hr from 1800 to 0900 nightly -HPV serology negative -Further recommendations per Dr. Cleveland Disposition: Patient to be discharged today (12/03) with plans to follow up with Dr. Cleveland and Dr. Carrero for Cetuximab and RT, respectively. Patient seen and case discussed with attending, Dr. Cleveland. Edilberto Martin PGY2
[2017-12-03] MEDS: Nystatin 100,000 Units/ml Oral Susp 5 ml UD PO SCH ×2 (10:01→14:28)
[2017-12-03 10:23] VITALS: BP 88/55; PULSE 102; RESP 20; TEMP 98.6; O2SAT 98
--- NOTE | 2017-12-03 10:51 | PN ---
DATE: 12/03/2017 SUBJECTIVE: The patient is in bed in no acute distress, nontoxic. PHYSICAL EXAMINATION: VITAL SIGNS: On exam, temperature is 98, blood pressure is 84/50, respiratory rate of 18, heart rate of 95. HEENT: Examination of HEENT is unremarkable. NECK: Supple. LUNGS: Have decreased breath sounds. HEART: Normal S1, S2. ABDOMEN: Soft, nontender. LABORATORY EXAMINATION: Reveals a white count of 7.7, hemoglobin of 11, BUN of 12, creatinine of 0.4 and urinalysis is noted. Microbiology is noted. C. diff is negative. ASSESSMENT AND PLAN: A 52-year-old female who was seen earlier this morning, overall laryngeal cancer, squamous cell type and radiation, possible adrenal insufficiency and patient with liver cirrhosis, alcohol abuse, anxiety, depression who just yesterday had a Port-A-Cath placement, currently off of antibiotics, afebrile. The patient is at risk for developing nosocomial infections. Yunior Hdz MD
--- NOTE | 2017-12-03 14:16 | CP.PCM.DIS ---
<NabilToritoabhijeet Husain - Last Filed: 12/03/17 14:20> Provider - Provider Date of Admission: 11/03/17 07:06 Attending physician: Kofi Evans MD Primary care physician: Navid Gillis MD Time Spent in preparation of Discharge (in minutes): 45 Diagnosis - Discharge Diagnosis (1) Squamous cell cancer of epiglottis Status: Acute Priority: High (2) Hematemesis Status: Acute Priority: High (3) Anemia Status: Acute Priority: High (4) Hypocalcemia Status: Acute Priority: High (5) Hypokalemia Status: Acute Priority: High Hospital Course - Lab Results Lab Results: Micro Results 11/23/17 17:01 Blood Blood Culture - Final NO GROWTH AFTER 5 DAYS 11/23/17 17:01 Blood Gram Stain - Final TEST NOT PERFORMED 11/23/17 17:01 Blood Blood Culture - Final NO GROWTH AFTER 5 DAYS 11/23/17 17:01 Blood Gram Stain - Final TEST NOT PERFORMED 11/26/17 22:00 Urine Urine Culture - Final No Growth (<1,000 CFU/ML) 11/26/17 23:07 Stool C. difficile Antigen & Toxins A,B - Final 11/25/17 15:10 Urine Urine Culture - Final No Growth (<1,000 CFU/ML) 11/23/17 11:30 Urine,Clean Catch Urine Culture - Final >100,000 CFU/ML. MULTIPLE SPECIES. SUGGEST REPEAT SPECIMEN. Most Recent Lab Values WBC 7.7 10^3/ul (4.5-11.0) 12/03/17 06:10 RBC 3.70 10^6/uL (3.5-6.1) 12/03/17 06:10 Hgb 11.8 g/dL (12.0-16.0) L 12/03/17 06:10 Hct 37.3 % (36.0-48.0) 12/03/17 06:10 MCV 100.8 fl (80.0-105.0) 12/03/17 06:10 MCH 31.9 pg (25.0-35.0) 12/03/17 06:10 MCHC 31.6 g/dl (31.0-37.0) 12/03/17 06:10 RDW 15.6 % (11.5-14.5) H 12/03/17 06:10 Plt Count 96 10^3/uL (120.0-450.0) L 12/03/17 06:10 Manual Plt Count 33 K/mm3 (120-450) L* 11/02/17 17:59 MPV 11.9 fl (7.0-11.0) H 12/03/17 06:10 Gran % 84.5 % (50.0-68.0) H 12/03/17 06:10 Lymph % (Auto) 5.2 % (22.0-35.0) L 12/03/17 06:10 [place] % (Auto) 10.1 % (1.0-6.0) H 12/03/17 06:10 Eos % (Auto) 0.1 % (1.5-5.0) L 12/03/17 06:10 Baso % (Auto) 0.1 % (0.0-3.0) 12/03/17 06:10 Gran # 6.52 (1.4-6.5) H 12/03/17 06:10 Lymph # (Auto) 0.4 (1.2-3.4) L 12/03/17 06:10 [place] # (Auto) 0.8 (0.1-0.6) H 12/03/17 06:10 Eos # (Auto) 0.0 (0.0-0.7) 12/03/17 06:10 Baso # (Auto) 0.01 K/mm3 (0.0-2.0) 12/03/17 06:10 Neutrophils % (Manual) 81 % (50.0-70.0) H 11/29/17 05:55 Band Neutrophils % 6 % (0-2) H 11/02/17 02:45 Lymphocytes % (Manual) 5 % (22.0-35.0) L 11/29/17 05:55 Monocytes % (Manual) 8 % (1.0-6.0) H 11/29/17 05:55 Eosinophils % (Manual) 4 % (0.0-3.0) H 11/29/17 05:55 Myelocytes % 2 % 11/29/17 05:55 Platelet Evaluation Low (NORMAL) 11/29/17 05:55 Hypochromasia Slight 11/22/17 05:00 Anisocytosis (manual) Slight 11/29/17 05:55 Retic Count 1.99 % (0.5-1.5) H 11/04/17 06:45 PT 11.6 SECONDS (9.4-12.5) 11/11/17 04:30 INR 1.02 11/11/17 04:30 APTT 26.9 Seconds (25.1-36.5) 11/11/17 04:30 Fibrinogen 243 mg/dl (200-400) 11/06/17 07:30 Fibrin Degrad Products <10 ug/ml (< 10 ug/mL) 11/06/17 07:30 Sodium 139 mmol/L (132-148) 12/03/17 06:10 Potassium 3.8 mmol/L (3.6-5.0) 12/03/17 06:10 Chloride 104 mmol/L (98-107) 12/03/17 06:10 Carbon Dioxide 28 mmol/L (21-33) 12/03/17 06:10 Anion Gap 11 (10-20) 12/03/17 06:10 BUN 12 mg/dL (7-21) 12/03/17 06:10 Creatinine 0.4 mg/dl (0.7-1.2) L 12/03/17 06:10 Est GFR ( Amer) > 60 12/03/17 06:10 Est GFR (Non-Af Amer) > 60 12/03/17 06:10 Random Glucose 135 mg/dL (70-110) H 12/03/17 06:10 Serum Osmolality 278 mosm/kg (272-300) 11/02/17 02:45 Calcium 8.5 mg/dL (8.4-10.5) 12/03/17 06:10 Phosphorus 2.9 mg/dL (2.5-4.5) 11/28/17 08:00 Magnesium 1.9 mg/dL (1.7-2.2) 11/28/17 08:00 Iron 30 ug/dL (45-180) L 11/04/17 06:45 TIBC 163 ug/dL (265-497) L 11/04/17 06:45 % Saturation 18 % (20-55) L 11/04/17 06:45 Transferrin 86.72 mg/dL (206-381) L 11/04/17 06:45 Ferritin 268.0 ng/mL 11/04/17 06:45 Total Bilirubin 0.3 mg/dL (0.2-1.3) 12/03/17 06:10 AST 25 U/L (14-36) 12/03/17 06:10 ALT 27 U/L (7-56) 12/03/17 06:10 Alkaline Phosphatase 45 U/L (38-126) 12/03/17 06:10 Ammonia < 9 umol/L (9-33) L 11/23/17 11:55 Lactate Dehydrogenase 343 U/L (333-699) 11/01/17 22:41 Total Creatine Kinase 30 U/L (35-230) L 11/01/17 22:41 Troponin I < 0.01 ng/mL 11/23/17 21:48 Total Protein 5.6 g/dL (5.8-8.3) L 12/03/17 06:10 Albumin 2.8 g/dL (3.0-4.8) L 12/03/17 06:10 Globulin 2.8 gm/dL 12/03/17 06:10 Albumin/Globulin Ratio 1.0 (1.1-1.8) L 12/03/17 06:10 Lipase 67 U/L (23-300) 11/01/17 22:41 Carcinoembryonic Ag 1.9 ng/mL (0.0-3.0) 11/03/17 08:45 CA 19-9 Antigen 21.5 U/mL (0-37) 11/03/17 08:45 Vitamin B12 > 1000 pg/mL (239-931) H 11/04/17 06:45 Folate 6.1 ng/mL 11/04/17 06:45 TSH 3rd Generation 0.55 mIU/mL (0.46-4.68) 11/23/17 17:01 Cortisol AM Sample 20.4 ug/dL (4.46-22.7) 12/02/17 07:30 Urine Color Yellow (YELLOW) 11/29/17 22:55 Urine Appearance Clear (CLEAR) 11/29/17 22:55 Urine pH 6.5 (4.7-8.0) 11/29/17 22:55 Ur Specific [place] 1.015 (1.005-1.035) 11/29/17 22:55 Urine Protein Negative mg/dL (<30 mg/dL) 11/29/17 22:55 Urine Glucose (UA) Negative mg/dL (NEGATIVE) 11/29/17 22:55 Urine Ketones Negative mg/dL (NEGATIVE) 11/29/17 22:55 Urine Blood Negative (NEGATIVE) 11/29/17 22:55 Urine Nitrate Negative (NEGATIVE) 11/29/17 22:55 Urine Bilirubin Negative (NEGATIVE) 11/29/17 22:55 Urine Urobilinogen 0.2 E.U./dL (<1 E.U./dL) 11/29/17 22:55 Ur Leukocyte Esterase Negative Felicitas/uL (NEGATIVE) 11/29/17 22:55 Urine RBC 5 - 10 /hpf (0-2) 11/23/17 11:30 Urine WBC 25 - 30 /hpf (0-6) 11/23/17 11:30 Ur Epithelial Cells 4 - 5 /hpf (0-5) 11/23/17 11:30 Amorphous Sediment Few 11/23/17 11:30 Urine Bacteria Many (NEG) 11/23/17 11:30 Urine Other Uyeast 11/23/17 11:30 Urine Osmolality 500 mosm/kg (300-1000) 11/03/17 21:25 Ur Random Creatinine 90 mg/dL 11/03/17 21:25 Ur Random Sodium 103 meq/L 11/03/17 21:25 Alcohol, Quantitative < 10 mg/dL (0-10) 11/03/17 02:08 Hepatitis A IgM Ab Negative (NEGATIVE) 11/17/17 06:30 Hep Bs Antigen Negative (NEGATIVE) 11/17/17 06:30 Hep B Core IgM Ab Negative (NEGATIVE) 11/17/17 06:30 Hepatitis C Antibody Negative (NEGATIVE) 11/17/17 06:30 HIV 1&2 Ag/Ab, 4th Gen Nonreactive (Nonreactive) 11/05/17 14:02 Blood Type A NEGATIVE 11/11/17 04:30 Antibody Screen Negative 11/11/17 04:30 Crossmatch See Detail 11/11/17 04:30 BBK History Checked Patient has bt 11/11/17 04:30 - Hospital Course Hospital Course: Pt is a 52 year old female with PMH of alcohol abuse and cirrhosis who [place] [facility] [place] with two day history of vomiting of blood and dysphagia. Patient stated that she had similar symptoms in the past but this time she felt weak and came to the hospital. She denied fevers, chills, recent illness. Pt had a history of friable polypoid lesion of the oropharynx seen on EGD during prior admission (10/2016) but did not followup with ENT. On admission, she was given fluids, protonix and made NPO. She was also found to have thrombocytopenia and anemia and received irradiated products, platelets, FFP, and pRBCs when necessary. CT of the neck showed intraluminal mass of the proximal esophagus and dilation around the mass. GI, Hem/Onc, ENT, Rad/Onc, Surgery, Infectious disease, Psych and Palliative Care were consulted. EGD showed large friable, fungating and ulcerative mass found in the hypopharynx com pletely obstructing the airway. Soft tissue CT of the neck showed two apparent separate masses including the glottis 2x1.9cm and upper esophagus/pharyngo esophageal junction 3.3x2.4 cm. Laryngoscopy showed large supraglottic pharyngeal mass extending to the hypoglossal region. Biopsy confirmed squamous cell carcinoma. Pt had PICC line (11/06/17) placed for peripheral parental nutrition, and then jejunostomy tube (11/09/17) placed for continuous tube feed infusions. She underwent radiation treatments with Rad/Onc (start 11/16/17Thursday for a total of 35 sessions ending on 01/05/18). Pulmonology was consulted and pt was started on inhaled bronchodilator for upper airway secretions, metronidazole, IV methylprednisolone and racemic epinephrine. She was also started on Nystatin swish and swallow for thrush. Pts hematemesis and dysphagia continued to improve. Her IV steroids were switched to PO prednisone taper and and her tube feeds were changed to bolus feeds. However, pt did not tolerate bolus feeds due to cramping and diarrhea. Her tube feeds were subsequently changed to night-time infusions, which she tolerated. Hem/Onc recommended that patient start treatment with Cetuximab, and pt underwent placement of a port-a-cath to receive Cetuximab infusions outpatient. During her hospital course, pt also reported some confusion and urinary symptoms and found to be tachycardic and hypotensive with mild response to fluid boluses. UA was positive for UTI and pt received three-day course of IV Zosyn with resolution of urinary and neurologic symptoms. Repeat UA was negative for UTI. However, pt remained hypotensive despite fluid boluses and cortisol level was low at 3. Repeat cortisol was 2.6. Endocrinology was consulted and she was continued on prednisone 10mg daily. Cosyntropin stimulation test was negative for adrenal insufficiency and her cortisol levels returned to normal limits. Her blood pressure remained stable around upper 90s/60s. Endocrine recommended tapering her prednisone to 5mg for 7 days. Pt was counseled extensively on alcohol cessation and need for followup with her primary care, Hem/Onc (Dr. Weller), and Rad/Onc (Dr. Carrero). Pt verbalized understanding. She also underwent training for administration of tube feeds. She is being discharged to home with visiting nurse for Osmolite 70ml/hr for 20hrs per day, tube feeds, Xanax PRN for anxiety, Folic Acid, Midodrine, Nystatin, Scopolamine patch, tramadol prn for pain, and prednisone 5mg for 7 days. - Date & Time of H&P Date of H&P: 12/03/17 Time of H&P: 14:16 Discharge Exam - Head Exam Head Exam: ATRAUMATIC, NORMOCEPHALIC - Eye Exam Eye Exam: EOMI - ENT Exam ENT Exam: Mucous Membranes Moist - Neck Exam Neck exam: Full Rom - Respiratory Exam Respiratory Exam: NORMAL BREATHING PATTERN. absent: Accessory Muscle Use, Wheezes, Respiratory Distress, Stridor - Cardiovascular Exam Cardiovascular Exam: RRR, +S1, +S2. absent: Diastolic murmur, Systolic Murmur - GI/Abdominal Exam GI & Abdominal Exam: Normal Bowel Sounds, Unremarkable Additional comments: j tube in place - Extremities Exam Extremities exam: full ROM, pedal pulses present - Neurological Exam Neurological exam: Alert, Oriented x3 - Psychiatric Exam Psychiatric exam: Normal Affect, Normal Mood - Skin Skin Exam: Dry, Normal Color, Warm Discharge Plan - Discharge Medications Prescriptions: Alprazolam [Xanax] 0.5 mg PEG BID PRN #10 tab PRN Reason: Anxiety Folic Acid 1 mg JT DAILY #30 tab Midodrine [Proamatine] 10 mg JT TID #90 tab Nystatin [Nystatin Oral Susp] 5 ml PO QID #150 udc predniSONE [predniSONE Tab] 5 mg PO DAILY #7 tab predniSONE [predniSONE Tab] 5 mg PO DAILY #7 tab Scopolamine 1 mg/72 hr [Transderm-Scop] 1 patch TD Q3D #10 patch traMADol [Ultram] 50 mg GT TID PRN #15 tab PRN Reason: Pain, Moderate (4-7) - Follow Up Plan Condition: STABLE Disposition: HOME/ ROUTINE Instructions: Gastrointestinal Bleeding (DC) Additional Instructions: 1. please follow up with your primary care physician Dr Agrawal on December 07, 2017 at 2pm, an appointment has already been set up for you. If you need to adjust the date please call Dr Agrawal's office to make any needed changes. 2. please continue to follow with Dr Carrero for radiation treatments (Thursday through Thursday) 3. please continue to follow with Dr Cleveland for chemotherapy treatments, you have an appointment Dec 10, 2017 at 1:30pm. On the ground floor of [facility]. 4. please continue to take your medications as directed 5. you will receive education for administering tube feeds through your J-Tube, before you leave. You will be prescribed Osmolite 1.0 @ 70ml/hour, for 20 hours a day. 6. if your symptoms return of worsen, please go to the nearest emergency department Referrals: Tali Carrero MD [Staff Provider] - Loni Cleveland MD [Staff Provider] - Navid Gillis MD [Primary Care Provider] - <Kofi Evans - Last Filed: 12/03/17 14:38> Provider - Provider Date of Admission: 11/03/17 07:06 Attending physician: Kofi Evans MD Primary care physician: Navid Gillis MD Hospital Course - Lab Results Lab Results: Micro Results 11/23/17 17:01 Blood Blood Culture - Final NO GROWTH AFTER 5 DAYS 11/23/17 17:01 Blood Gram Stain - Final TEST NOT PERFORMED 11/23/17 17:01 Blood Blood Culture - Final NO GROWTH AFTER 5 DAYS 11/23/17 17:01 Blood Gram Stain - Final TEST NOT PERFORMED 11/26/17 22:00 Urine Urine Culture - Final No Growth (<1,000 CFU/ML) 11/26/17 23:07 Stool C. difficile Antigen & Toxins A,B - Final 11/25/17 15:10 Urine Urine Culture - Final No Growth (<1,000 CFU/ML) 11/23/17 11:30 Urine,Clean Catch Urine Culture - Final >100,000 CFU/ML. MULTIPLE SPECIES. SUGGEST REPEAT SPECIMEN. Most Recent Lab Values WBC 7.7 10^3/ul (4.5-11.0) 12/03/17 06:10 RBC 3.70 10^6/uL (3.5-6.1) 12/03/17 06:10 Hgb 11.8 g/dL (12.0-16.0) L 12/03/17 06:10 Hct 37.3 % (36.0-48.0) 12/03/17 06:10 MCV 100.8 fl (80.0-105.0) 12/03/17 06:10 MCH 31.9 pg (25.0-35.0) 12/03/17 06:10 MCHC 31.6 g/dl (31.0-37.0) 12/03/17 06:10 RDW 15.6 % (11.5-14.5) H 12/03/17 06:10 Plt Count 96 10^3/uL (120.0-450.0) L 12/03/17 06:10 Manual Plt Count 33 K/mm3 (120-450) L* 11/02/17 17:59 MPV 11.9 fl (7.0-11.0) H 12/03/17 06:10 Gran % 84.5 % (50.0-68.0) H 12/03/17 06:10 Lymph % (Auto) 5.2 % (22.0-35.0) L 12/03/17 06:10 [place] % (Auto) 10.1 % (1.0-6.0) H 12/03/17 06:10 Eos % (Auto) 0.1 % (1.5-5.0) L 12/03/17 06:10 Baso % (Auto) 0.1 % (0.0-3.0) 12/03/17 06:10 Gran # 6.52 (1.4-6.5) H 12/03/17 06:10 Lymph # (Auto) 0.4 (1.2-3.4) L 12/03/17 06:10 [place] # (Auto) 0.8 (0.1-0.6) H 12/03/17 06:10 Eos # (Auto) 0.0 (0.0-0.7) 12/03/17 06:10 Baso # (Auto) 0.01 K/mm3 (0.0-2.0) 12/03/17 06:10 Neutrophils % (Manual) 81 % (50.0-70.0) H 11/29/17 05:55 Band Neutrophils % 6 % (0-2) H 11/02/17 02:45 Lymphocytes % (Manual) 5 % (22.0-35.0) L 11/29/17 05:55 Monocytes % (Manual) 8 % (1.0-6.0) H 11/29/17 05:55 Eosinophils % (Manual) 4 % (0.0-3.0) H 11/29/17 05:55 Myelocytes % 2 % 11/29/17 05:55 Platelet Evaluation Low (NORMAL) 11/29/17 05:55 Hypochromasia Slight 11/22/17 05:00 Anisocytosis (manual) Slight 11/29/17 05:55 Retic Count 1.99 % (0.5-1.5) H 11/04/17 06:45 PT 11.6 SECONDS (9.4-12.5) 11/11/17 04:30 INR 1.02 11/11/17 04:30 APTT 26.9 Seconds (25.1-36.5) 11/11/17 04:30 Fibrinogen 243 mg/dl (200-400) 11/06/17 07:30 Fibrin Degrad Products <10 ug/ml (< 10 ug/mL) 11/06/17 07:30 Sodium 139 mmol/L (132-148) 12/03/17 06:10 Potassium 3.8 mmol/L (3.6-5.0) 12/03/17 06:10 Chloride 104 mmol/L (98-107) 12/03/17 06:10 Carbon Dioxide 28 mmol/L (21-33) 12/03/17 06:10 Anion Gap 11 (10-20) 12/03/17 06:10 BUN 12 mg/dL (7-21) 12/03/17 06:10 Creatinine 0.4 mg/dl (0.7-1.2) L 12/03/17 06:10 Est GFR ( Amer) > 60 12/03/17 06:10 Est GFR (Non-Af Amer) > 60 12/03/17 06:10 Random Glucose 135 mg/dL (70-110) H 12/03/17 06:10 Serum Osmolality 278 mosm/kg (272-300) 11/02/17 02:45 Calcium 8.5 mg/dL (8.4-10.5) 12/03/17 06:10 Phosphorus 2.9 mg/dL (2.5-4.5) 11/28/17 08:00 Magnesium 1.9 mg/dL (1.7-2.2) 11/28/17 08:00 Iron 30 ug/dL (45-180) L 11/04/17 06:45 TIBC 163 ug/dL (265-497) L 11/04/17 06:45 % Saturation 18 % (20-55) L 11/04/17 06:45 Transferrin 86.72 mg/dL (206-381) L 11/04/17 06:45 Ferritin 268.0 ng/mL 11/04/17 06:45 Total Bilirubin 0.3 mg/dL (0.2-1.3) 12/03/17 06:10 AST 25 U/L (14-36) 12/03/17 06:10 ALT 27 U/L (7-56) 12/03/17 06:10 Alkaline Phosphatase 45 U/L (38-126) 12/03/17 06:10 Ammonia < 9 umol/L (9-33) L 11/23/17 11:55 Lactate Dehydrogenase 343 U/L (333-699) 11/01/17 22:41 Total Creatine Kinase 30 U/L (35-230) L 11/01/17 22:41 Troponin I < 0.01 ng/mL 11/23/17 21:48 Total Protein 5.6 g/dL (5.8-8.3) L 12/03/17 06:10 Albumin 2.8 g/dL (3.0-4.8) L 12/03/17 06:10 Globulin 2.8 gm/dL 12/03/17 06:10 Albumin/Globulin Ratio 1.0 (1.1-1.8) L 12/03/17 06:10 Lipase 67 U/L (23-300) 11/01/17 22:41 Carcinoembryonic Ag 1.9 ng/mL (0.0-3.0) 11/03/17 08:45 CA 19-9 Antigen 21.5 U/mL (0-37) 11/03/17 08:45 Vitamin B12 > 1000 pg/mL (239-931) H 11/04/17 06:45 Folate 6.1 ng/mL 11/04/17 06:45 TSH 3rd Generation 0.55 mIU/mL (0.46-4.68) 11/23/17 17:01 Cortisol AM Sample 20.4 ug/dL (4.46-22.7) 12/02/17 07:30 Urine Color Yellow (YELLOW) 11/29/17 22:55 Urine Appearance Clear (CLEAR) 11/29/17 22:55 Urine pH 6.5 (4.7-8.0) 11/29/17 22:55 Ur Specific [place] 1.015 (1.005-1.035) 11/29/17 22:55 Urine Protein Negative mg/dL (<30 mg/dL) 11/29/17 22:55 Urine Glucose (UA) Negative mg/dL (NEGATIVE) 11/29/17 22:55 Urine Ketones Negative mg/dL (NEGATIVE) 11/29/17 22:55 Urine Blood Negative (NEGATIVE) 11/29/17 22:55 Urine Nitrate Negative (NEGATIVE) 11/29/17 22:55 Urine Bilirubin Negative (NEGATIVE) 11/29/17 22:55 Urine Urobilinogen 0.2 E.U./dL (<1 E.U./dL) 11/29/17 22:55 Ur Leukocyte Esterase Negative Felicitas/uL (NEGATIVE) 11/29/17 22:55 Urine RBC 5 - 10 /hpf (0-2) 11/23/17 11:30 Urine WBC 25 - 30 /hpf (0-6) 11/23/17 11:30 Ur Epithelial Cells 4 - 5 /hpf (0-5) 11/23/17 11:30 Amorphous Sediment Few 11/23/17 11:30 Urine Bacteria Many (NEG) 11/23/17 11:30 Urine Other Uyeast 11/23/17 11:30 Urine Osmolality 500 mosm/kg (300-1000) 11/03/17 21:25 Ur Random Creatinine 90 mg/dL 11/03/17 21:25 Ur Random Sodium 103 meq/L 11/03/17 21:25 Alcohol, Quantitative < 10 mg/dL (0-10) 11/03/17 02:08 Hepatitis A IgM Ab Negative (NEGATIVE) 11/17/17 06:30 Hep Bs Antigen Negative (NEGATIVE) 11/17/17 06:30 Hep B Core IgM Ab Negative (NEGATIVE) 11/17/17 06:30 Hepatitis C Antibody Negative (NEGATIVE) 11/17/17 06:30 HIV 1&2 Ag/Ab, 4th Gen Nonreactive (Nonreactive) 11/05/17 14:02 Blood Type A NEGATIVE 11/11/17 04:30 Antibody Screen Negative 11/11/17 04:30 Crossmatch See Detail 11/11/17 04:30 BBK History Checked Patient has bt 11/11/17 04:30 Attending/Attestation - Attestation I have personally seen and examined this patient.: Yes I have fully participated in the care of the patient.: Yes I have reviewed all pertinent clinical information, including history, physical exam and plan: Yes Notes (Text): 12/03/17 14:32 52 year old female with past medical history of alcohol abuse who presented with hematemesis. She was found to have large, friable hypopharyngeal mass which was biopsied showed squamous cell carcinoma. She was being followed by ENT, GI, and hematology/oncology. She is s/p jejunostomy tube tolerating feeds. She began to receive radiation therapy with improvement of symptoms. She had port placement yesterday for chemotherapy in future. Endocrinology was also following to rule out underlying adrenal insufficiency. PT recommended RONAL initially which patient refused. She is discharged home with services. Follow up with pmd, hematology/oncology, radiation/oncology and ENT. Counselled on alcohol abstinence. Kofi Evans MD Hospitalist.
--- NOTE | 2017-12-03 18:22 | PN ---
DATE: 12/03/2017 ENDOCRINOLOGY FOLLOWUP NOTE LOCATION: Room 370. SUBJECTIVE: This is a 52-year-old female with ongoing radiation therapy for management of laryngeal carcinoma and is also being followed closely for metabolic management. She underwent a recent Cortrosyn stimulation test to exclude the possibility of possible adrenal insufficiency. The hormonal reports were actually normal with a baseline cortisol level of 5.1 and a 1 hour post stimulation cortisol of 20.4 mcg/dL. This is a normal response to ACTH stimulation, which excludes the possibility of underlying adrenal insufficiency. She is now undergoing a tapering dosing of her prednisone, which was given for management of bronchospasm and currently is on prednisone given as 5 mg once daily as given. We will continue the present medical management at this time and concur with the ongoing radiation followed by chemotherapy for the aforementioned diagnosis. We will obtain serial chemistries and supplement accordingly as needed. We will follow. Arianne Marte MD
== END 2017-12-03 15:59 | disposition home or self-care (01) | DRG 586 ==
LOC: ED 21:03 → ERH 11-02 00:47 → 5RSO 11-02 02:29 → OBSVTOIN 11-03 07:06 → 3RSO 11-20 14:35
PROVIDERS: ADMIT Internal Medicine; ATTEND Internal Medicine
PROC: 30233K1 Transfusion of Nonautologous Frozen Plasma into Peripheral Vein, Percutaneous Approach (ICD-10-PCS; 2017-11-04)
PROC: 30233R1 Transfusion of Nonautologous Platelets into Peripheral Vein, Percutaneous Approach (ICD-10-PCS; 2017-11-04)
PROC: 0CJY8ZZ Inspection of Mouth and Throat, Via Natural or Artificial Opening Endoscopic (ICD-10-PCS; 2017-11-04)
PROC: 3E0336Z Introduction of Nutritional Substance into Peripheral Vein, Percutaneous Approach (ICD-10-PCS; 2017-11-06)
PROC: 0DHA0UZ Insertion of Feeding Device into Jejunum, Open Approach (ICD-10-PCS; 2017-11-09)
PROC: 3E0H76Z Introduction of Nutritional Substance into Lower GI, Via Natural or Artificial Opening (ICD-10-PCS; 2017-11-10)
PROC: 30233N1 Transfusion of Nonautologous Red Blood Cells into Peripheral Vein, Percutaneous Approach (ICD-10-PCS; 2017-11-10)
PROC: 0CBS8ZX Excision of Larynx, Via Natural or Artificial Opening Endoscopic, Diagnostic (ICD-10-PCS; principal; 2017-11-11 13:00)
PROC: D90B1ZZ Beam Radiation of Larynx using Photons 1 - 10 MeV (ICD-10-PCS; 2017-11-16)
PROC: 3E0F7GC Introduction of Other Therapeutic Substance into Respiratory Tract, Via Natural or Artificial Opening (ICD-10-PCS; 2017-11-21)
PROC: 0JH63WZ Insertion of Totally Implantable Vascular Access Device into Chest Subcutaneous Tissue and Fascia, Percutaneous Approach (ICD-10-PCS; 2017-12-02)
PROC: 02HV33Z Insertion of Infusion Device into Superior Vena Cava, Percutaneous Approach (ICD-10-PCS; 2017-12-02)
PROC: B548ZZA Ultrasonography of Superior Vena Cava, Guidance (ICD-10-PCS; 2017-12-02)
DX: C32.1 Malignant neoplasm of supraglottis (principal); A41.9 Sepsis, unspecified organism; K70.31 Alcoholic cirrhosis of liver with ascites; E87.6 Hypokalemia; E87.1 Hypo-osmolality and hyponatremia; D69.59 Other secondary thrombocytopenia; E46 Unspecified protein-calorie malnutrition; R64 Cachexia; Z68.1 Body mass index [BMI] 19.9 or less, adult; D61.818 Other pancytopenia; F10.239 Alcohol dependence with withdrawal, unspecified; N18.9 Chronic kidney disease, unspecified; N39.0 Urinary tract infection, site not specified; K92.0 Hematemesis; D63.0 Anemia in neoplastic disease; D63.1 Anemia in chronic kidney disease; K22.70 Barrett's esophagus without dysplasia; R13.12 Dysphagia, oropharyngeal phase; F43.23 Adjustment disorder with mixed anxiety and depressed mood; I12.9 Hypertensive chronic kidney disease with stage 1 through stage 4 chronic kidney disease, or unspecified chronic kidney disease; M06.9 Rheumatoid arthritis, unspecified; E83.42 Hypomagnesemia; Z91.81 History of falling; Z91.19 Patient's noncompliance with other medical treatment and regimen

== ENCOUNTER 2018-01-07 17:14 | Inpatient (IN) | payer OTHER ==
[2018-01-07 17:16] VITALS: BMI 14.1
[2018-01-07] MEDS ORDERED: Silver Sulfadiazine 1% Cream (25 gm) TP STA (17:22)
[2018-01-07] MEDS ORDERED: Morphine 2 mg/ml ISec IVP STA (17:51)
[2018-01-07] MEDS ORDERED: Piperacill/Tazo 4.5gm in NS 4.5 GM/100 ML BAG IVPB STA (17:51)
[2018-01-07] MEDS ORDERED: Vancomycin 1gm in NS 250ml 1 GM/250 ML BAG IVPB STA (17:52)
[2018-01-07] MEDS ORDERED: Sodium Chloride 0.9% 1,000 ML IV SCH (18:00)
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
[2018-01-07 18:38] LABS: BASO # 0.01 K/mm3 (0.0-2.0); BASO % 0.2 % (0.0-3.0); EOS % 0.3 % (1.5-5.0); GRAN # 5.06 (1.4-6.5); GRAN % 88.4 % (50.0-68.0); HEMOGLOBIN 13.3 g/dL (12.0-16.0); LYMPH # 0.3 (1.2-3.4); LYMPH % 5.9 % (22.0-35.0); MEAN CELL VOLUME 98.3 fl (80.0-105.0); MEAN CORPUSCULAR HEMOGLOBIN 31.8 pg (25.0-35.0); MEAN CORPUSCULAR HGB CONC 32.4 g/dl (31.0-37.0); MEAN PLATELET VOLUME 11.2 fl (7.0-11.0); MONO # 0.3 (0.1-0.6); MONO % 5.2 % (1.0-6.0); RBC 4.18 10^6/uL (3.5-6.1); RED CELL DISTRIBUTION WIDTH 13.8 % (11.5-14.5); WHITE BLOOD COUNT 5.7 10^3/uL (4.5-11.0)
[2018-01-07 18:47] LABS: INR 1.12; PARTIAL THROMBOPLASTIN TIME 32.7 Seconds (25.1-36.5); PROTHROMBIN TIME 12.8 SECONDS (9.4-12.5)
[2018-01-07] MEDS: MethylPREDNISolone 40 mg Vial IVP SCH (20:15)
[2018-01-07] MEDS: Silver Sulfadiazine 1% Cream (25 gm) TP SCH (20:16)
[2018-01-07] MEDS: Morphine 2 mg/ml ISec IVP PRN ×2 (20:27→23:43)
[2018-01-07 20:29] LABS: ALB/GLOB RATIO 0.9 (1.1-1.8); ALBUMIN 2.3 g/dL (3.0-4.8); ALT/SGPT 30 U/L (7-56); AMYLASE 36 U/L (35-125); AST/SGOT 16 U/L (14-36); BLOOD UREA NITROGEN 9 mg/dL (7-21); CALCIUM 7.9 mg/dL (8.4-10.5); GFR NON-AFRICAN AMERICAN > 60; LIPASE 51 U/L (23-300)
--- NOTE | 2018-01-07 20:34 | ED PDOC ---
Physical Exam - Physical Exam Narrative Physical Exam (Text): Signed out to me at change of shift pending labs. CBC/CMP returned. Dr. Best accepts patient to his service. Vital Signs Temp Pulse Resp BP Pulse Ox 01/07/18 19:15 73 17 94/60 L 98 01/07/18 17:15 97.6 F 76 18 101/63 100 Medical Decision Making - Lab Interpretations Lab Results: 01/07/18 18:31 01/07/18 20:07 Lab Results 01/07/18 20:07: Sodium 139, Potassium 4.2, Chloride 107, Carbon Dioxide 30, Anion Gap 6 L, BUN 9, Creatinine 0.5 L, Est GFR ( Amer) > 60, Est GFR (Non-Af Amer) > 60, Random Glucose 91, Calcium 7.9 L, Magnesium 1.8, Total Bilirubin 0.5, AST 16, ALT 30, Alkaline Phosphatase 60, Total Protein 4.8 L, Al bumin 2.3 L, Globulin 2.5, Albumin/Globulin Ratio 0.9 L, Amylase 36, Lipase 51 01/07/18 18:31: PT 12.8 H, INR 1.12, APTT 32.7 01/07/18 18:31: WBC 5.7, RBC 4.18, Hgb 13.3, Hct 41.1, MCV 98.3, MCH 31.8, MCHC 32.4, RDW 13.8, Plt Count 120, MPV 11.2 H, Gran % 88.4 H, Lymph % (Auto) 5.9 L, [place] % (Auto) 5.2, Eos % (Auto) 0.3 L, Baso % (Auto) 0.2, Gran # 5.06, Lymph # (Auto) 0.3 L, [place] # (Auto) 0.3, Eos # (Auto) 0.0, Baso # (Auto) 0.01 - Medication Orders Current Medication Orders: Sodium Chloride (Sodium Chloride 0.9%) 1,000 mls @ 100 mls/hr IV .Q10H LIZ Last Admin: 01/07/18 18:56 Dose: 100 mls/hr eMAR Start Stop Document 01/07/18 18:56 EQ (Rec: 01/07/18 18:56 EQ [id number]) Intravenous Solution Start Date 01/07/18 Start Time 18:56 Lorazepam (Ativan) 0.5 mg IVP Q8H PRN; Protocol PRN Reason: Anxiety Methylprednisolone (Solu-Medrol) 20 mg IVP Q8H [facility] Last Admin: 01/07/18 20:15 Dose: 20 mg IVP Administration Document 01/07/18 20:15 JOL (Rec: 01/07/18 20:15 [id number] Charges for Administration # of IVP Administrations 1 Morphine Sulfate (Morphine) 2 mg IVP Q4H PRN PRN Reason: Pain, severe (8-10) Last Admin: 01/07/18 20:27 Dose: 2 mg MAR Pain Assessment Document 01/07/18 20:27 JOL (Rec: 01/07/18 20:27 [id number] Pain Reassessment Is this a pain reassessment? No Sleep Is patient sleeping during reassessment? No Presence of Pain Presence of Pain Yes Pain Scale Used Protocol: PSCALES Pain Scale Used Numeric Description Intensity of Pain at present 8 Acceptable Level of Pain 2 IVP Administration Document 01/07/18 20:27 JO (Rec: 01/07/18 20:27 [id number]) Charges for Administration # of IVP Administrations 1 Pantoprazole Sodium (Protonix Inj) 40 mg IVP DAILY [facility] Silver Sulfadiazine (Silvadene 1% 25 Gm) 0 gm TP BID [facility] Last Admin: 01/07/18 20:16 Dose: 25 gm Discontinued Medications Vancomycin HCl (Vancomycin 1gm) 1 gm in 250 mls @ 167 mls/hr IVPB STAT STA; Protocol Stop: 01/07/18 19:21 Last Admin: 01/07/18 20:16 Dose: 167 mls/hr eMAR Start Stop Document 01/07/18 20:16 JO (Rec: 01/07/18 20:16 [id number]) Intravenous Solution Start Date 01/07/18 Start Time 20:16 End Date 01/07/18 End time 21:46 Total Infusion Time 90 Piperacillin Sod/Tazobactam Sod (Zosyn 4.5 Gm In Ns 100ml) 4.5 gm in 100 mls @ 200 mls/hr IVPB STAT STA; Protocol Stop: 01/07/18 18:20 Last Admin: 01/07/18 18:56 Dose: 200 mls/hr eMAR Start Stop Document 01/07/18 18:56 EQ (Rec: 01/07/18 18:56 EQ [id number]) Intravenous Solution Start Date 01/07/18 Start Time 18:56 Morphine Sulfate (Morphine) 2 mg IVP STAT STA Stop: 01/07/18 17:52 Last Admin: 01/07/18 18:56 Dose: Not Given Non-Admin Reason: BP Parameters Not Met Silver Sulfadiazine (Silvadene 1% 25 Gm) 5 gm TP STAT STA Stop: 01/07/18 17:23 Last Admin: 01/07/18 18:57 Dose: 5 gm Disposition/Present on Arrival - Present on Arrival Any Indicators Present on Arrival: No History of DVT/PE: No History of Uncontrolled Diabetes: No Urinary Catheter: No History of Decub. Ulcer: No History Surgical Site Infection Following: None - Disposition Have Diagnosis and Disposition been Completed?: Yes Diagnosis: Jejunostomy tube site pain, Squamous cell cancer of epiglottis Disposition: HOSPITALIZED Disposition Time: 20:34 Patient Plan: Admission Patient Problems: Current Active Problems Problem Status Onset Jejunostomy tube site pain Acute Squamous cell cancer of epiglottis Acute Condition: FAIR Forms: [employer] (Macedonian)
--- NOTE | 2018-01-07 22:32 | CP.PCM.CON ---
History of Present Illness - History of Present Illness History of Present Illness: General Surgery Consult Note for Dr. Lobato Consult: Dislodged J-Tube CC: J-tube site painful, tube came out 52 year old female, past medical history of pharyngeal cancer currently undergoing radiation, cirrhosis, alcohol abuse, depression, and anxiety, presents to the emergency department with pain at J-tube site. Patient last used J-tube for feeds last night around 10PM. Shortly after, tube caught on something and was dislodged approximately 5 cm. Patient describes it as a sharp, stabbing pain worsened by coughing. Of note, she has been taking Levaquin since Thursday, prescribed by her primary, for irritation of the neck secondary to radiation. Denies fever, chills, nausea, vomiting, diarrhea, constipation, shortness of breath, chest pain, or urinary symptoms. PMH: see above PSH: J-tube, pharyngeal CA biopsy, jaw surgery, femur surgery FH: Father-throat cancer SH: Heavy alcohol intake, denies tobacco or illicit drugs ALL: NKDA Meds: See MAR Review of Systems - Constitutional Constitutional: absent: Chills, Fever - EENT Eyes: absent: Blurred Vision, Change in Vision Ears: absent: Ear Discharge, Ear Pain Nose/Mouth/Throat: absent: Nasal Congestion, Nasal Discharge - Cardiovascular Cardiovascular: absent: Chest Pain, Dyspnea - Respiratory Respiratory: absent: Cough, Dyspnea - Gastrointestinal Gastrointestinal: Abdominal Pain, Dysphagia. absent: Constipation, Diarrhea, Hematemesis, Nausea, Vomiting - Genitourinary Genitourinary: absent: Difficulty Urinating, Dysuria - Musculoskeletal Musculoskeletal: Neck Pain. absent: Back Pain - Integumentary Integumentary: Changing Lesions, Dry Skin, Erythema - Psychiatric Psychiatric: absent: Anxiety, Depression Past Patient History - Infectious Disease Hx of Infectious Diseases: None - Tetanus Immunizations Tetanus Immunization: Unknown - Past Medical History & Family History Past Medical History?: Yes - Past Social History Smoking Status: Never Smoked - CARDIAC Hx Cardiac Disorders: No - PULMONARY Hx Respiratory Disorders: No - NEUROLOGICAL Hx Neurological Disorder: No - HEENT Hx HEENT Problems: Yes (TUNNEL VISION) Other/Comment: dysphagia - RENAL Hx Chronic Kidney Disease: No - ENDOCRINE/METABOLIC Hx Endocrine Disorders: No - HEMATOLOGICAL/ONCOLOGICAL Hx Blood Transfusions: Yes Hx Blood Transfusion Reaction: No Hx Cancer: Yes (laryngeal ca with radiation) - INTEGUMENTARY Hx Dermatological Problems: Yes - MUSCULOSKELETAL/RHEUMATOLOGICAL Hx Rheumatoid Arthritis: Yes - GASTROINTESTINAL Hx Gastrointestinal Disorders: Yes Other/Comment: Jtube - NPO - GENITOURINARY/GYNECOLOGICAL Hx Genitourinary Disorders: No - PSYCHIATRIC Hx Emotional Abuse: No Hx Physical Abuse: No Hx Substance Use: No - SURGICAL HISTORY Other/Comment: + jtube - ANESTHESIA Hx Anesthesia: Yes Hx Anesthesia Reactions: No Hx Malignant Hyperthermia: No Meds Allergies/Adverse Reactions: Allergies Allergy/AdvReac Type Severity Reaction Status Date / Time No Known Allergies Allergy Verified 11/01/17 21:37 - Medications Medications: Current Medications Potassium Chloride/Dextrose/Sod Cl (Potassium Chl 10 Meq In D5-1/2ns) 1,000 mls @ 100 mls/hr IV .Q10H LIZ Lorazepam (Ativan) 0.5 mg IVP Q8H PRN; Protocol PRN Reason: Anxiety Methylprednisolone (Solu-Medrol) 20 mg IVP Q8H LIZ Last Admin: 01/07/18 20:15 Dose: 20 mg Morphine Sulfate (Morphine) 2 mg IVP Q4H PRN PRN Reason: Pain, severe (8-10) Last Admin: 01/07/18 20:27 Dose: 2 mg Pantoprazole Sodium (Protonix Inj) 40 mg IVP DAILY [facility] Silver Sulfadiazine (Silvadene 1% 25 Gm) 0 gm TP BID LIZ Last Admin: 01/07/18 20:16 Dose: 25 gm Physical Exam - Constitutional Appears: No Acute Distress, Cachectic, Chronically Ill - Head Exam Head Exam: ATRAUMATIC, NORMAL INSPECTION, NORMOCEPHALIC - Eye Exam Eye Exam: EOMI - ENT Exam ENT Exam: Mucous Membranes Dry - Neck Exam Additional comments: Excoriations, erythema, and tenderness of the anterior neck 2/2 radiation - Respiratory Exam Respiratory Exam: NORMAL BREATHING PATTERN. absent: Respiratory Distress - Cardiovascular Exam Cardiovascular Exam: REGULAR RHYTHM - GI/Abdominal Exam GI & Abdominal Exam: Rebound, Soft, Tenderness. absent: Distended Additional comments: J-tube site tender, erythematous, with purulence noted around site Dislodged approximately 5cm - Neurological Exam Neurological exam: Alert, Oriented x3 - Psychiatric Exam Psychiatric exam: Normal Affect, Normal Mood Results - Vital Signs Recent Vital Signs: Last Vital Signs Temp 97.6 F 01/07/18 17:15 Pulse 73 01/07/18 19:15 Resp 17 01/07/18 19:15 BP 94/60 L 01/07/18 19:15 Pulse Ox 98 01/07/18 19:15 - Labs Result Diagrams: 01/08/18 05:45 01/08/18 05:45 Labs: Laboratory Results - last 24 hr 01/07/18 01/07/18 01/07/18 18:31 18:31 20:07 WBC 5.7 RBC 4.18 Hgb 13.3 Hct 41.1 MCV 98.3 MCH 31.8 MCHC 32.4 RDW 13.8 Plt Count 120 MPV 11.2 H Gran % 88.4 H Lymph % (Auto) 5.9 L [place] % (Auto) 5.2 Eos % (Auto) 0.3 L Baso % (Auto) 0.2 Gran # 5.06 Lymph # (Auto) 0.3 L [place] # (Auto) 0.3 Eos # (Auto) 0.0 Baso # (Auto) 0.01 PT 12.8 H INR 1.12 APTT 32.7 Sodium 139 Potassium 4.2 Chloride 107 Carbon Dioxide 30 Anion Gap 6 L BUN 9 Creatinine 0.5 L Est GFR ( Amer) > 60 Est GFR (Non-Af Amer) > 60 Random Glucose 91 Calcium 7.9 L Magnesium 1.8 Total Bilirubin 0.5 AST 16 ALT 30 Alkaline Phosphatase 60 Total Protein 4.8 L Albumin 2.3 L Globulin 2.5 Albumin/Globulin Ratio 0.9 L Amylase 36 Lipase 51 Assessment & Plan - Assessment and Plan (Free Text) Assessment: 52F w/ dislodged and infected J-tube site Plan: NPO IVF Analgesics and antiemetics PRN Continue IV Abx per ID F/u wound culture sensitivities F/u CXR F/u tube study May need J-tube repositioning Further management per primary team Further recommendations per Dr. Luis Alfredo Hidalgo PGY1
[2018-01-08] MEDS: Potassium Chl 10 mEq in D5-1/2 1,000 ML IV SCH (00:17)
[2018-01-08] MEDS ORDERED: Sodium Chloride 0.9% 250 ML IV STA (00:44)
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
[2018-01-08] MEDS ORDERED: Sodium Chloride 0.9% 500 ML IV STA (03:22)
[2018-01-08 03:47] LABS: URINE BILIRUBIN NEGATIVE (NEGATIVE); URINE BLOOD NEGATIVE (NEGATIVE); URINE GLUCOSE (UA) NEGATIVE (NEGATIVE); URINE LEUKOCYTE ESTERASE NEGATIVE Leu/uL (NEGATIVE); URINE PROTEIN NEGATIVE mg/dL (<30 mg/dL); URINE UROBILINOGEN 0.2 E.U./dL (<1 E.U./dL)
[2018-01-08 04:01] LABS: URINE APPEARANCE CLEAR (CLEAR); URINE COLOR YELLOW (YELLOW)
[2018-01-08] MEDS: MethylPREDNISolone 40 mg Vial IVP SCH ×3 (05:06→21:05)
[2018-01-08] MEDS: Morphine 2 mg/ml ISec IVP PRN ×4 (05:10→23:19)
[2018-01-08 06:23] LABS: GRAN # 2.64 (1.4-6.5); GRAN % 90.7 % (50.0-68.0); LYMPH # 0.1 (1.2-3.4); LYMPH % 4.5 % (22.0-35.0); MEAN CELL VOLUME 97.4 fl (80.0-105.0); MEAN CORPUSCULAR HEMOGLOBIN 31.5 pg (25.0-35.0); MEAN CORPUSCULAR HGB CONC 32.4 g/dl (31.0-37.0); MONO # 0.1 (0.1-0.6); MONO % 4.8 % (1.0-6.0); PLATELET COUNT 95 10^3/uL (120.0-450.0); RBC 3.49 10^6/uL (3.5-6.1); RED CELL DISTRIBUTION WIDTH 13.5 % (11.5-14.5); WHITE BLOOD COUNT 2.9 10^3/uL (4.5-11.0)
[2018-01-08] MEDS ORDERED: Iohexol 240 (50 ml) PO ONE (06:41)
[2018-01-08 07:16] LABS: ALB/GLOB RATIO 0.9 (1.1-1.8); ALBUMIN 2.1 g/dL (3.0-4.8); ALT/SGPT 25 U/L (7-56); AST/SGOT 16 U/L (14-36); BLOOD UREA NITROGEN 7 mg/dL (7-21); CALCIUM 7.9 mg/dL (8.4-10.5); GFR NON-AFRICAN AMERICAN > 60
--- NOTE | 2018-01-08 07:34 | CP.PCM.PN ---
Subjective - Date & Time of Evaluation Date of Evaluation: 01/08/18 Time of Evaluation: 10:27 - Subjective Subjective: PGY-[address] Lobato Patient seen and examined at bedside. Continues to have pain at j-tube site, though patient states pain is improving. Denies fevers, chills, nausea, vomiting, diarrhea. Objective - Vital Signs/Intake and Output Vital Signs (last 24 hours): Temp Pulse Resp BP Pulse Ox 98.3 F 68 18 82/52 L 95 01/08/18 00:37 01/08/18 03:17 01/08/18 00:37 01/08/18 03:17 01/08/18 00:37 Intake and Output: 01/08/18 01/08/18 06:59 18:59 Intake Total 1100 Output Total 400 Balance 700 - Medications Medications: Current Medications Potassium Chloride/Dextrose/Sod Cl (Potassium Chl 10 Meq In D5-1/2ns) 1,000 mls @ 100 mls/hr IV .Q10H [facility] Last Admin: 01/08/18 00:17 Dose: 100 mls/hr Lorazepam (Ativan) 0.5 mg IVP Q8H PRN; Protocol PRN Reason: Anxiety Methylprednisolone (Solu-Medrol) 20 mg IVP Q8H [facility] Last Admin: 01/08/18 05:06 Dose: 20 mg Morphine Sulfate (Morphine) 2 mg IVP Q4H PRN PRN Reason: Pain, severe (8-10) Last Admin: 01/08/18 05:10 Dose: 2 mg Pantoprazole Sodium (Protonix Inj) 40 mg IVP DAILY [facility] Silver Sulfadiazine (Silvadene 1% 25 Gm) 0 gm TP BID [facility] Last Admin: 01/07/18 20:16 Dose: 25 gm - Labs Labs: 01/08/18 05:45 01/08/18 05:45 PT 12.8 SECONDS (9.4-12.5) H 01/07/18 18:31 INR 1.12 01/07/18 18:31 APTT 32.7 Seconds (25.1-36.5) 01/07/18 18:31 - Constitutional Appears: Non-toxic, No Acute Distress - Head Exam Head Exam: ATRAUMATIC, NORMAL INSPECTION - Eye Exam Eye Exam: EOMI - ENT Exam ENT Exam: Mucous Membranes Moist - Respiratory Exam Respiratory Exam: Clear to Ausculation Bilateral. absent: Rhonchi, Wheezes - Cardiovascular Exam Cardiovascular Exam: REGULAR RHYTHM, RRR, +S1, +S2 - GI/Abdominal Exam GI & Abdominal Exam: Soft, Tenderness (Tenderness surrounding J-tube site. ) Additional comments: Some surrounding purulence - Neurological Exam Neurological Exam: Alert, Awake, Oriented x3 - Psychiatric Exam Psychiatric exam: Normal Affect, Normal Mood - Skin Skin Exam: Dry, Normal Color Assessment and Plan - Assessment and Plan (Free Text) Assessment: Plan: - CXR shows no free air - Gastrograffin tube study shows good passage into jejunum with no contrast extravasation - Await final radiological read. If radiology agrees no leakage of j-tube, it is okay to restart use of j-tube. - Keep NPO - IVF - Vanc, zosyn given in ED, continue IV Abx per ID - Gram stain showing no growth. F/u final wound cultures. - No surgical intervention at this time Simon Saravia, PGY-1
[2018-01-08 08:16] LABS: BASOPHIL 1 % (0.0-1.0); LYMPHOCYTE 1 % (22.0-35.0); MONOCYTE 6 % (1.0-6.0); NEUTROPHIL 92 % (50.0-70.0)
[2018-01-08 08:17] LABS: PLATELET ESTIMATE NORMAL (NORMAL)
[2018-01-08] MEDS ORDERED: Iohexol 240 (50 ml) ONE (09:07)
--- NOTE | 2018-01-08 09:15 | CP.PCM.CON ---
History of Present Illness - History of Present Illness History of Present Illness: Ms Vanessa is a 52 year old female who is known to our dept. She has a locally advanced laryngeal cancer. She is on chemoradiation. 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 Instead she came to the ED at [facility] [place] because she was having issues with her J tube not working and slipping out. Past Patient History - Infectious Disease Hx of Infectious Diseases: None - Tetanus Immunizations Tetanus Immunization: Unknown - Past Medical History & Family History Past Medical History?: Yes - Past Social History Smoking Status: Never Smoked - CARDIAC Hx Cardiac Disorders: No - PULMONARY Hx Respiratory Disorders: No - NEUROLOGICAL Hx Neurological Disorder: No - HEENT Hx HEENT Problems: Yes (TUNNEL VISION) Other/Comment: dysphagia - RENAL Hx Chronic Kidney Disease: No - ENDOCRINE/METABOLIC Hx Endocrine Disorders: No - HEMATOLOGICAL/ONCOLOGICAL Hx Blood Transfusions: Yes Hx Blood Transfusion Reaction: No Hx Cancer: Yes (laryngeal ca with radiation) - INTEGUMENTARY Hx Dermatological Problems: Yes - MUSCULOSKELETAL/RHEUMATOLOGICAL Hx Rheumatoid Arthritis: Yes - GASTROINTESTINAL Hx Gastrointestinal Disorders: Yes Other/Comment: Jtube - NPO - GENITOURINARY/GYNECOLOGICAL Hx Genitourinary Disorders: No - PSYCHIATRIC Hx Emotional Abuse: No Hx Physical Abuse: No Hx Substance Use: No - SURGICAL HISTORY Other/Comment: + jtube - ANESTHESIA Hx Anesthesia: Yes Hx Anesthesia Reactions: No Hx Malignant Hyperthermia: No Meds Allergies/Adverse Reactions: Allergies Allergy/AdvReac Type Severity Reaction Status Date / Time No Known Allergies Allergy Verified 11/01/17 21:37 - Medications Medications: Current Medications Potassium Chloride/Dextrose/Sod Cl (Potassium Chl 10 Meq In D5-1/2ns) 1,000 mls @ 100 mls/hr IV .Q10H [facility] Last Admin: 01/08/18 00:17 Dose: 100 mls/hr Lorazepam (Ativan) 0.5 mg IVP Q8H PRN; Protocol PRN Reason: Anxiety Methylprednisolone (Solu-Medrol) 20 mg IVP Q8H [facility] Last Admin: 01/08/18 05:06 Dose: 20 mg Morphine Sulfate (Morphine) 2 mg IVP Q4H PRN PRN Reason: Pain, severe (8-10) Last Admin: 01/08/18 05:10 Dose: 2 mg Pantoprazole Sodium (Protonix Inj) 40 mg IVP DAILY [facility] Silver Sulfadiazine (Silvadene 1% 25 Gm) 0 gm TP BID [facility] Last Admin: 01/07/18 20:16 Dose: 25 gm Results - Vital Signs Recent Vital Signs: Last Vital Signs Temp 97.9 F 01/08/18 06:00 Pulse 67 01/08/18 06:00 Resp 18 01/08/18 06:00 BP 81/54 L 01/08/18 06:00 Pulse Ox 94 L 01/08/18 06:00 - Labs Result Diagrams: 01/08/18 05:45 01/08/18 05:45 Labs: Laboratory Results - last 24 hr 01/07/18 01/07/18 01/07/18 18:31 18:31 20:07 WBC 5.7 RBC 4.18 Hgb 13.3 Hct 41.1 MCV 98.3 MCH 31.8 MCHC 32.4 RDW 13.8 Plt Count 120 MPV 11.2 H Gran % 88.4 H Lymph % (Auto) 5.9 L [place] % (Auto) 5.2 Eos % (Auto) 0.3 L Baso % (Auto) 0.2 Gran # 5.06 Lymph # (Auto) 0.3 L [place] # (Auto) 0.3 Eos # (Auto) 0.0 Baso # (Auto) 0.01 Neutrophils % (Manual) Lymphocytes % (Manual) Monocytes % (Manual) Basophils % (Manual) Platelet Evaluation PT 12.8 H INR 1.12 APTT 32.7 Fibrinogen Fibrin Degrad Products Sodium 139 Potassium 4.2 Chloride 107 Carbon Dioxide 30 Anion Gap 6 L BUN 9 Creatinine 0.5 L Est GFR ( Amer) > 60 Est GFR (Non-Af Amer) > 60 Random Glucose 91 Calcium 7.9 L Magnesium 1.8 Total Bilirubin 0.5 AST 16 ALT 30 Alkaline Phosphatase 60 Total Protein 4.8 L Albumin 2.3 L Globulin 2.5 Albumin/Globulin Ratio 0.9 L Amylase 36 Lipase 51 Urine Color Urine Appearance Urine pH Ur Specific [place] Urine Protein Urine Glucose (UA) Urine Ketones Urine Blood Urine Nitrate Urine Bilirubin Urine Urobilinogen Ur Leukocyte Esterase 01/08/18 01/08/18 01/08/18 03:30 05:45 05:45 WBC 2.9 L D RBC 3.49 L Hgb 11.0 L D Hct 34.0 L MCV 97.4 MCH 31.5 MCHC 32.4 RDW 13.5 Plt Count 95 L MPV 11.0 Gran % 90.7 H Lymph % (Auto) 4.5 L [place] % (Auto) 4.8 Eos % (Auto) 0.0 L Baso % (Auto) 0.0 Gran # 2.64 Lymph # (Auto) 0.1 L [place] # (Auto) 0.1 Eos # (Auto) 0.0 Baso # (Auto) 0.00 Neutrophils % (Manual) 92 H Lymphocytes % (Manual) 1 L Monocytes % (Manual) 6 Basophils % (Manual) 1 Platelet Evaluation Normal PT INR APTT Fibrinogen Fibrin Degrad Products Sodium 138 Potassium 4.3 Chloride 110 H Carbon Dioxide 26 Anion Gap 6 L BUN 7 Creatinine 0.4 L Est GFR ( Amer) > 60 Est GFR (Non-Af Amer) > 60 Random Glucose 142 H Calcium 7.9 L Magnesium Total Bilirubin 0.2 AST 16 ALT 25 Alkaline Phosphatase 56 Total Protein 4.5 L Albumin 2.1 L Globulin 2.4 Albumin/Globulin Ratio 0.9 L Amylase Lipase Urine Color Yellow Urine Appearance Clear Urine pH 6.0 Ur Specific [place] 1.025 Urine Protein Negative Urine Glucose (UA) Negative Urine Ketones Trace H Urine Blood Negative Urine Nitrate Negative Urine Bilirubin Negative Urine Urobilinogen 0.2 Ur Leukocyte Esterase Negative 01/08/18 01/08/18 05:45 05:45 WBC RBC Hgb Hct MCV MCH MCHC RDW Plt Count MPV Gran % Lymph % (Auto) [place] % (Auto) Eos % (Auto) Baso % (Auto) Gran # Lymph # (Auto) [place] # (Auto) Eos # (Auto) Baso # (Auto) Neutrophils % (Manual) Lymphocytes % (Manual) Monocytes % (Manual) Basophils % (Manual) Platelet Evaluation PT INR APTT Fibrinogen 310 Fibrin Degrad Products <10 ug/ml Sodium Potassium Chloride Carbon Dioxide Anion Gap BUN Creatinine Est GFR ( Amer) Est GFR (Non-Af Amer) Random Glucose Calcium Magnesium Total Bilirubin AST ALT Alkaline Phosphatase Total Protein Albumin Globulin Albumin/Globulin Ratio Amylase Lipase Urine Color Urine Appearance Urine pH Ur Specific [place] Urine Protein Urine Glucose (UA) Urine Ketones Urine Blood Urine Nitrate Urine Bilirubin Urine Urobilinogen Ur Leukocyte Esterase Assessment & Plan - Assessment and Plan (Free Text) Assessment: We spoke to Ms Vanessa today. Examination of her neck reveals improvement in her radiation dermatitis. The moist desquamation has improved significantly. She only has two fractions left of her radiation. We will plan to resume her treatment on Thursday. The patient is aware as well.
[2018-01-08] MEDS: Silver Sulfadiazine 1% Cream (25 gm) TP SCH ×2 (09:50→17:54)
--- NOTE | 2018-01-08 10:19 | CP.PCM.CON ---
History of Present Illness - History of Present Illness History of Present Illness: Gastroenterology Fellow/PGY6 Consult Note 52 year old female with PMH of decompensated 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 She notes last feed administration on Thursday night without issue. Notes J-tube became dislodged about 4-5cm after feeding was completed with associated a bdominal discomfort at tube insertion site. Denies nausea, vomiting, hematemesis, diarrhea, constipation, melena, or hematochezia. Patient notes last radiation to be Thursday before and was to follow up today with radiation oncology. Prior EGD 10/2017 showed hypopharynx lesion confirmed to be moderately-poorly differentiated squamous cell carcinoma, [id number]. Surgical History- J-tube placement, jaw fracture repair, femur surgery Family History- Father-denies stomach cancer, colon cancer Social History-alcohol abuse, denies tobacco or illicit drug use Review of Systems - Review of Systems Review of Systems: 12-point review of systems negative except for as above Past Patient History - Infectious Disease Hx of Infectious Diseases: None - Tetanus Immunizations Tetanus Immunization: Unknown - Past Medical History & Family History Past Medical History?: Yes - Past Social History Smoking Status: Never Smoked - CARDIAC Hx Cardiac Disorders: No - PULMONARY Hx Respiratory Disorders: No - NEUROLOGICAL Hx Neurological Disorder: No - HEENT Hx HEENT Problems: Yes (TUNNEL VISION) Other/Comment: dysphagia - RENAL Hx Chronic Kidney Disease: No - ENDOCRINE/METABOLIC Hx Endocrine Disorders: No - HEMATOLOGICAL/ONCOLOGICAL Hx Blood Transfusions: Yes Hx Blood Transfusion Reaction: No Hx Cancer: Yes (laryngeal ca with radiation) - INTEGUMENTARY Hx Dermatological Problems: Yes - MUSCULOSKELETAL/RHEUMATOLOGICAL Hx Rheumatoid Arthritis: Yes - GASTROINTESTINAL Hx Gastrointestinal Disorders: Yes Other/Comment: Jtube - NPO - GENITOURINARY/GYNECOLOGICAL Hx Genitourinary Disorders: No - PSYCHIATRIC Hx Emotional Abuse: No Hx Physical Abuse: No Hx Substance Use: No - SURGICAL HISTORY Other/Comment: + jtube - ANESTHESIA Hx Anesthesia: Yes Hx Anesthesia Reactions: No Hx Malignant Hyperthermia: No Meds Allergies/Adverse Reactions: Allergies Allergy/AdvReac Type Severity Reaction Status Date / Time No Known Allergies Allergy Verified 11/01/17 21:37 - Medications Medications: Current Medications Potassium Chloride/Dextrose/Sod Cl (Potassium Chl 10 Meq In D5-1/2ns) 1,000 mls @ 100 mls/hr IV .Q10H [facility] Last Admin: 01/08/18 00:17 Dose: 100 mls/hr Lorazepam (Ativan) 0.5 mg IVP Q8H PRN; Protocol PRN Reason: Anxiety Methylprednisolone (Solu-Medrol) 20 mg IVP Q8H [facility] Last Admin: 01/08/18 05:06 Dose: 20 mg Morphine Sulfate (Morphine) 2 mg IVP Q4H PRN PRN Reason: Pain, severe (8-10) Last Admin: 01/08/18 05:10 Dose: 2 mg Pantoprazole Sodium (Protonix Inj) 40 mg IVP DAILY [facility] Last Admin: 01/08/18 09:49 Dose: 40 mg Silver Sulfadiazine (Silvadene 1% 25 Gm) 0 gm TP BID [facility] Last Admin: 01/08/18 09:50 Dose: Not Given Physical Exam - Constitutional Appears: Non-toxic, No Acute Distress - Head Exam Head Exam: ATRAUMATIC, NORMOCEPHALIC - Eye Exam Eye Exam: EOMI, PERRL. absent: Scleral icterus Pupil Exam: PERRL. absent: Miosis, Mydriatic - ENT Exam ENT Exam: Mucous Membranes Moist, Normal Oropharynx - Neck Exam Neck exam: Positive for: Full Rom, Normal Inspection Additional comments: dermatitis - Respiratory Exam Respiratory Exam: Clear to Auscultation Bilateral. absent: Rales, Rhonchi, Wheezes - Cardiovascular Exam Cardiovascular Exam: RRR, +S1, +S2. absent: Gallop, Rubs - GI/Abdominal Exam GI & Abdominal Exam: Normal Bowel Sounds, Soft, Tenderness. absent: Distended, Firm, Guarding, Organomegaly, Rebound, Rigid Additional comments: LUQ J-tube in place with dressing, C/D/I; mild discomfort at J-tube site - Extremities Exam Extremities exam: Positive for: normal inspection. Negative for: pedal edema - Neurological Exam Neurological exam: Alert - Psychiatric Exam Psychiatric exam: Normal Affect, Normal Mood - Skin Skin Exam: Dry, Intact, Normal Color, Warm Results - Vital Signs Recent Vital Signs: Last Vital Signs Temp 97.9 F 01/08/18 06:00 Pulse 67 01/08/18 06:00 Resp 18 11/30/18 06:00 BP 81/54 L 01/08/18 06:00 Pulse Ox 94 L 01/08/18 06:00 - Labs Result Diagrams: 01/08/18 05:45 01/08/18 05:45 Labs: Laboratory Results - last 24 hr 01/07/18 01/07/18 01/07/18 18:31 18:31 20:07 WBC 5.7 RBC 4.18 Hgb 13.3 Hct 41.1 MCV 98.3 MCH 31.8 MCHC 32.4 RDW 13.8 Plt Count 120 MPV 11.2 H Gran % 88.4 H Lymph % (Auto) 5.9 L [place] % (Auto) 5.2 Eos % (Auto) 0.3 L Baso % (Auto) 0.2 Gran # 5.06 Lymph # (Auto) 0.3 L [place] # (Auto) 0.3 Eos # (Auto) 0.0 Baso # (Auto) 0.01 Neutrophils % (Manual) Lymphocytes % (Manual) Monocytes % (Manual) Basophils % (Manual) Platelet Evaluation PT 12.8 H INR 1.12 APTT 32.7 Fibrinogen Fibrin Degrad Products Sodium 139 Potassium 4.2 Chloride 107 Carbon Dioxide 30 Anion Gap 6 L BUN 9 Creatinine 0.5 L Est GFR ( Amer) > 60 Est GFR (Non-Af Amer) > 60 Random Glucose 91 Calcium 7.9 L Magnesium 1.8 Total Bilirubin 0.5 AST 16 ALT 30 Alkaline Phosphatase 60 Total Protein 4.8 L Albumin 2.3 L Globulin 2.5 Albumin/Globulin Ratio 0.9 L Amylase 36 Lipase 51 Urine Color Urine Appearance Urine pH Ur Specific [place] Urine Protein Urine Glucose (UA) Urine Ketones Urine Blood Urine Nitrate Urine Bilirubin Urine Urobilinogen Ur Leukocyte Esterase 01/08/18 01/08/18 01/08/18 03:30 05:45 05:45 WBC 2.9 L D RBC 3.49 L Hgb 11.0 L D Hct 34.0 L MCV 97.4 MCH 31.5 MCHC 32.4 RDW 13.5 Plt Count 95 L MPV 11.0 Gran % 90.7 H Lymph % (Auto) 4.5 L [place] % (Auto) 4.8 Eos % (Auto) 0.0 L Baso % (Auto) 0.0 Gran # 2.64 Lymph # (Auto) 0.1 L [place] # (Auto) 0.1 Eos # (Auto) 0.0 Baso # (Auto) 0.00 Neutrophils % (Manual) 92 H Lymphocytes % (Manual) 1 L Monocytes % (Manual) 6 Basophils % (Manual) 1 Platelet Evaluation Normal PT INR APTT Fibrinogen Fibrin Degrad Products Sodium 138 Potassium 4.3 Chloride 110 H Carbon Dioxide 26 Anion Gap 6 L BUN 7 Creatinine 0.4 L Est GFR ( Amer) > 60 Est GFR (Non-Af Amer) > 60 Random Glucose 142 H Calcium 7.9 L Magnesium Total Bilirubin 0.2 AST 16 ALT 25 Alkaline Phosphatase 56 Total Protein 4.5 L Albumin 2.1 L Globulin 2.4 Albumin/Globulin Ratio 0.9 L Amylase Lipase Urine Color Yellow Urine Appearance Clear Urine pH 6.0 Ur Specific [place] 1.025 Urine Protein Negative Urine Glucose (UA) Negative Urine Ketones Trace H Urine Blood Negative Urine Nitrate Negative Urine Bilirubin Negative Urine Urobilinogen 0.2 Ur Leukocyte Esterase Negative 01/08/18 01/08/18 01/08/18 05:45 05:45 09:45 WBC RBC Hgb Hct MCV MCH MCHC RDW Plt Count MPV Gran % Lymph % (Auto) [place] % (Auto) Eos % (Auto) Baso % (Auto) Gran # Lymph # (Auto) [place] # (Auto) Eos # (Auto) Baso # (Auto) Neutrophils % (Manual) Lymphocytes % (Manual) Monocytes % (Manual) Basophils % (Manual) Platelet Evaluation PT INR APTT 31.3 Fibrinogen 310 Fibrin Degrad Products <10 ug/ml Sodium Potassium Chloride Carbon Dioxide Anion Gap BUN Creatinine Est GFR ( Amer) Est GFR (Non-Af Amer) Random Glucose Calcium Magnesium Total Bilirubin AST ALT Alkaline Phosphatase Total Protein Albumin Globulin Albumin/Globulin Ratio Amylase Lipase Urine Color Urine Appearance Urine pH Ur Specific [place] Urine Protein Urine Glucose (UA) Urine Ketones Urine Blood Urine Nitrate Urine Bilirubin Urine Urobilinogen Ur Leukocyte Esterase Assessment & Plan - Assessment and Plan (Free Text) Assessment: 52 year old female with PMH of decompensated 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 Active treatment of J-tube displacement with concern for dislodgement. Prior EGD 10/2017 showed hypopharynx lesion confirmed to be moderately-poorly differentiated squamous cell carcinoma, [id number]. Plan: -confirm J-tube in proper position -pending gastrograffin study -J-tube site culture pending -surgery managing- follow up recommendations -on IVFs -will follow clinical course
--- NOTE | 2018-01-08 10:20 | CP.PCM.PN ---
Subjective - Date & Time of Evaluation Date of Evaluation: 01/08/18 Time of Evaluation: 07:20 - Subjective Subjective: Sammy Pham Internal Medicine Resident- Hematology/Oncology Progress Note Subjective: Patient seen and examined. No acute events overnight. States pain near J-tube site has improved to a 6/10. Admits to baseline dysphagia. Offers no new complaints at this time. Denies fevers, chills, headache, dizziness, visu al/auditory changes, chest pain, SOB, abdominal pain, nausea, vomiting, diarrhea, and urinary symptoms. 12 Point ROS negative except as indicated in HPI Physical Examination: - Constitutional Appears: No Acute Distress, chronically ill appearing - Head Exam Head Exam: ATRAUMATIC, NORMOCEPHALIC - Eye Exam Eye Exam: EOMI, Normal appearance - ENT Exam ENT Exam: Mucous Membranes Dry - Neck Exam Additional comments: erythema, scaling, and tenderness to palpation of the anterior/lateral sides of neck 2/2 radiation - Respiratory Exam Respiratory Exam: Clear to Auscultation Bilateral, NORMAL BREATHING PATTERN - Cardiovascular Exam Cardiovascular Exam: RRR, +S1, +S2 - GI/Abdominal Exam GI & Abdominal Exam: Soft, Normal Bowel Sounds. J-tube site tender, erythematous, purulence noted - Extremities Exam Extremities Exam: Normal Capillary Refill. 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 J-Tube Dysfunction - surgery consulted- appreciate recommendations, gastrograffin tube study ordered and pending - GI consulted- appreciate recommendations - IR consulted- appreciate recommendations Radiation Dermatitis/Cellulitis - Infectious disease is consulted- appreciate recommendations, patient given vanc/zosyn x 1 in ED - Radiation oncology consulted- appreciate recommendations- plan to resume her treatment on Thursday - apply silvadene as instructed to affected area Laryngeal Squamous cell carcinoma - chemoradiation on hold until dermatitis resolves - pain control morphine 2mg IV q4 prn - speech therapy consulted- awaiting report Adrenal Insufficiency - continue solumedrol 20mg IV q8h Liver cirrhosis - GI consulted- appreciate recommendations Thrombocytopenia - Plts 95, stable - monitor closely via CBC in AM Anemia - 11.0, stable - monitor closely via CBC in AM Ppx - DVT- scds - GI- Protonix Patient case discussed with and plan approved by attending physician, Dr. Cleveland. Objective - Vital Signs/Intake and Output Vital Signs (last 24 hours): Temp Pulse Resp BP Pulse Ox 97.9 F 67 18 81/54 L 94 L 01/08/18 06:00 01/08/18 06:00 01/08/18 06:00 01/08/18 06:00 01/08/18 06:00 Intake and Output: 01/08/18 01/08/18 06:59 18:59 Intake Total 1100 Output Total 400 Balance 700 - Medications Medications: Current Medications Potassium Chloride/Dextrose/Sod Cl (Potassium Chl 10 Meq In D5-1/2ns) 1,000 mls @ 100 mls/hr IV .Q10H [facility] Last Admin: 01/08/18 00:17 Dose: 100 mls/hr Lorazepam (Ativan) 0.5 mg IVP Q8H PRN; Protocol PRN Reason: Anxiety Methylprednisolone (Solu-Medrol) 20 mg IVP Q8H [facility] Last Admin: 01/08/18 05:06 Dose: 20 mg Morphine Sulfate (Morphine) 2 mg IVP Q4H PRN PRN Reason: Pain, severe (8-10) Last Admin: 01/08/18 05:10 Dose: 2 mg Pantoprazole Sodium (Protonix Inj) 40 mg IVP DAILY [facility] Last Admin: 01/08/18 09:49 Dose: 40 mg Silver Sulfadiazine (Silvadene 1% 25 Gm) 0 gm TP BID [facility] Last Admin: 01/08/18 09:50 Dose: Not Given - Labs Labs: 01/08/18 05:45 01/08/18 05:45 PT 12.8 SECONDS (9.4-12.5) H 01/07/18 18:31 INR 1.12 01/07/18 18:31 APTT 31.3 Seconds (25.1-36.5) 01/08/18 09:45
--- NOTE | 2018-01-08 10:43 | RAD ---
Date of service: 01/08/2018 HISTORY: r/o free air COMPARISON: 12/01/2017 FINDINGS: LUNGS: No active pulmonary disease. PLEURA: No significant pleural effusion identified, no pneumothorax apparent. CARDIOVASCULAR: No aortic atherosclerotic calcification present. Normal cardiac size. No pulmonary vascular congestion. OSSEOUS STRUCTURES: No significant abnormalities. VISUALIZED UPPER ABDOMEN: Normal. OTHER FINDINGS: Right-sided Port-A-Cath IMPRESSION: No active disease. No evidence of free air
[2018-01-08] MEDS ORDERED: Barium Sulfate for Susp 96% w/w 176g Bottle PR ONE (11:48)
--- NOTE | 2018-01-08 12:23 | RAD ---
Date of service: 01/08/2018 HISTORY: J tube, needs gastrograffin tube study COMPARISON: None available. FINDINGS: BOWEL: Normal. No obstruction. No free air. Dilute contrast material was injected into the J-tube. The study shows intraluminal placement of the catheter with no evidence of extravasation. The visualized small bowel is normal in caliber. BONES: Normal. OTHER FINDINGS: None. IMPRESSION: Satisfactory position of jejunostomy tube
[2018-01-08] MEDS ORDERED: cefTRIAXone 1 gm 1 GM/100 ML BAG IVPB SCH (13:15)
--- NOTE | 2018-01-08 21:03 | CP.PCM.CON ---
History of Present Illness - History of Present Illness History of Present Illness: 52 year old female with PMH of alcohol abuse, liver cirrhosis with ascites, S/P J-tube placement, depression, anxiety, came in to [facility] because of her J-tube getting dislodged after getting caught on something. She is also complaining of some erythema around her neck and has been on Levaquin for this. There was apparently note of some discharge from the J-tube site which was milky. She denies fever or chills, no nausea or vomiting, no headache or dizziness, no chest pain, no SOB, no cough, no dysphagia, no sore throat, no diarrhea, no dysuria. Infectious Diseases consult is requested to further evaluate and manage. Review of Systems - Review of Systems All systems: reviewed and no additional remarkable complaints except (as per HPI) Past Patient History - Infectious Disease Hx of Infectious Diseases: None - Tetanus Immunizations Tetanus Immunization: Unknown - Past Medical History & Family History Past Medical History?: Yes - Past Social History Smoking Status: Never Smoked - CARDIAC Hx Cardiac Disorders: No - PULMONARY Hx Respiratory Disorders: No - NEUROLOGICAL Hx Neurological Disorder: No - HEENT Hx HEENT Problems: Yes (TUNNEL VISION) Other/Comment: dysphagia - RENAL Hx Chronic Kidney Disease: No - ENDOCRINE/METABOLIC Hx Endocrine Disorders: No - HEMATOLOGICAL/ONCOLOGICAL Hx Blood Transfusions: Yes Hx Blood Transfusion Reaction: No Hx Cancer: Yes (laryngeal ca with radiation) - INTEGUMENTARY Hx Dermatological Problems: Yes - MUSCULOSKELETAL/RHEUMATOLOGICAL Hx Rheumatoid Arthritis: Yes - GASTROINTESTINAL Hx Gastrointestinal Disorders: Yes Other/Comment: Jtube - NPO - GENITOURINARY/GYNECOLOGICAL Hx Genitourinary Disorders: No - PSYCHIATRIC Hx Emotional Abuse: No Hx Physical Abuse: No Hx Substance Use: No - SURGICAL HISTORY Other/Comment: + jtube - ANESTHESIA Hx Anesthesia: Yes Hx Anesthesia Reactions: No Hx Malignant Hyperthermia: No Meds Allergies/Adverse Reactions: Allergies Allergy/AdvReac Type Severity Reaction Status Date / Time No Known Allergies Allergy Verified 11/01/17 21:37 - Medications Medications: Current Medications Potassium Chloride/Dextrose/Sod Cl (Potassium Chl 10 Meq In D5-1/2ns) 1,000 mls @ 100 mls/hr IV .Q10H [facility] Last Admin: 01/08/18 00:17 Dose: 100 mls/hr Lorazepam (Ativan) 0.5 mg IVP Q8H PRN; Protocol PRN Reason: Anxiety Methylprednisolone (Solu-Medrol) 20 mg IVP Q8H [facility] Last Admin: 01/08/18 05:06 Dose: 20 mg Morphine Sulfate (Morphine) 2 mg IVP Q4H PRN PRN Reason: Pain, severe (8-10) Last Admin: 01/08/18 05:10 Dose: 2 mg Pantoprazole Sodium (Protonix Inj) 40 mg IVP DAILY [facility] Silver Sulfadiazine (Silvadene 1% 25 Gm) 0 gm TP BID [facility] Last Admin: 01/07/18 20:16 Dose: 25 gm Physical Exam - Constitutional Appears: Chronically Ill - Head Exam Head Exam: NORMAL INSPECTION - Respiratory Exam Respiratory Exam: Decreased Breath Sounds - Cardiovascular Exam Cardiovascular Exam: +S1, +S2 - GI/Abdominal Exam GI & Abdominal Exam: Soft. absent: Tenderness Additional comments: J-tube in place Results - Vital Signs Recent Vital Signs: Last Vital Signs Temp 97.9 F 01/08/18 06:00 Pulse 67 01/08/18 06:00 Resp 18 01/08/18 06:00 BP 81/54 L 01/08/18 06:00 Pulse Ox 94 L 01/08/18 06:00 - Labs Result Diagrams: 01/08/18 05:45 01/08/18 05:45 Labs: Laboratory Results - last 24 hr 01/07/18 01/07/18 01/07/18 18:31 18:31 20:07 WBC 5.7 RBC 4.18 Hgb 13.3 Hct 41.1 MCV 98.3 MCH 31.8 MCHC 32.4 RDW 13.8 Plt Count 120 MPV 11.2 H Gran % 88.4 H Lymph % (Auto) 5.9 L Evangeline % (Auto) 5.2 Eos % (Auto) 0.3 L Baso % (Auto) 0.2 Gran # 5.06 Lymph # (Auto) 0.3 L Evangeline # (Auto) 0.3 Eos # (Auto) 0.0 Baso # (Auto) 0.01 Neutrophils % (Manual) Lymphocytes % (Manual) Monocytes % (Manual) Basophils % (Manual) Platelet Evaluation PT 12.8 H INR 1.12 APTT 32.7 Fibrinogen Fibrin Degrad Products Sodium 139 Potassium 4.2 Chloride 107 Carbon Dioxide 30 Anion Gap 6 L BUN 9 Creatinine 0.5 L Est GFR ( Amer) > 60 Est GFR (Non-Af Amer) > 60 Random Glucose 91 Calcium 7.9 L Magnesium 1.8 Total Bilirubin 0.5 AST 16 ALT 30 Alkaline Phosphatase 60 Total Protein 4.8 L Albumin 2.3 L Globulin 2.5 Albumin/Globulin Ratio 0.9 L Amylase 36 Lipase 51 Urine Color Urine Appearance Urine pH Ur Specific [place] Urine Protein Urine Glucose (UA) Urine Ketones Urine Blood Urine Nitrate Urine Bilirubin Urine Urobilinogen Ur Leukocyte Esterase 01/08/18 01/08/18 01/08/18 03:30 05:45 05:45 WBC 2.9 L D RBC 3.49 L Hgb 11.0 L D Hct 34.0 L MCV 97.4 MCH 31.5 MCHC 32.4 RDW 13.5 Plt Count 95 L MPV 11.0 Gran % 90.7 H Lymph % (Auto) 4.5 L Evangeline % (Auto) 4.8 Eos % (Auto) 0.0 L Baso % (Auto) 0.0 Gran # 2.64 Lymph # (Auto) 0.1 L Evangeline # (Auto) 0.1 Eos # (Auto) 0.0 Baso # (Auto) 0.00 Neutrophils % (Manual) 92 H Lymphocytes % (Manual) 1 L Monocytes % (Manual) 6 Basophils % (Manual) 1 Platelet Evaluation Normal PT INR APTT Fibrinogen Fibrin Degrad Products Sodium 138 Potassium 4.3 Chloride 110 H Carbon Dioxide 26 Anion Gap 6 L BUN 7 Creatinine 0.4 L Est GFR ( Amer) > 60 Est GFR (Non-Af Amer) > 60 Random Glucose 142 H Calcium 7.9 L Magnesium Total Bilirubin 0.2 AST 16 ALT 25 Alkaline Phosphatase 56 Total Protein 4.5 L Albumin 2.1 L Globulin 2.4 Albumin/Globulin Ratio 0.9 L Amylase Lipase Urine Color Yellow Urine Appearance Clear Urine pH 6.0 Ur Specific [place] 1.025 Urine Protein Negative Urine Glucose (UA) Negative Urine Ketones Trace H Urine Blood Negative Urine Nitrate Negative Urine Bilirubin Negative Urine Urobilinogen 0.2 Ur Leukocyte Esterase Negative 01/08/18 01/08/18 05:45 05:45 WBC RBC Hgb Hct MCV MCH MCHC RDW Plt Count MPV Gran % Lymph % (Auto) Evangeline % (Auto) Eos % (Auto) Baso % (Auto) Gran # Lymph # (Auto) Evangeline # (Auto) Eos # (Auto) Baso # (Auto) Neutrophils % (Manual) Lymphocytes % (Manual) Monocytes % (Manual) Basophils % (Manual) Platelet Evaluation PT INR APTT Fibrinogen 310 Fibrin Degrad Products <10 ug/ml Sodium Potassium Chloride Carbon Dioxide Anion Gap BUN Creatinine Est GFR ( Amer) Est GFR (Non-Af Amer) Random Glucose Calcium Magnesium Total Bilirubin AST ALT Alkaline Phosphatase Total Protein Albumin Globulin Albumin/Globulin Ratio Amylase Lipase Urine Color Urine Appearance Urine pH Ur Specific [place] Urine Protein Urine Glucose (UA) Urine Ketones Urine Blood Urine Nitrate Urine Bilirubin Urine Urobilinogen Ur Leukocyte Esterase Assessment & Plan - Assessment and Plan (Free Text) Plan: Assessment J-tube dislodged, without evidence of skin and skin structure infection neck rash, 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
[2018-01-09] MEDS: MethylPREDNISolone 40 mg Vial IVP SCH ×3 (04:03→20:50)
[2018-01-09 07:13] LABS: ALB/GLOB RATIO 0.9 (1.1-1.8); ALBUMIN 2.3 g/dL (3.0-4.8); ALT/SGPT 23 U/L (7-56); AST/SGOT 14 U/L (14-36); BLOOD UREA NITROGEN 6 mg/dL (7-21); CALCIUM 8.2 mg/dL (8.4-10.5); GFR NON-AFRICAN AMERICAN > 60
[2018-01-09 07:31] LABS: GRAN # 3.3 (1.4-6.5); GRAN % 93.5 % (50.0-68.0); HEMOGLOBIN 11.6 g/dL (12.0-16.0); LYMPH # 0.1 (1.2-3.4); LYMPH % 2.3 % (22.0-35.0); MEAN CELL VOLUME 99.4 fl (80.0-105.0); MEAN CORPUSCULAR HEMOGLOBIN 32.3 pg (25.0-35.0); MEAN CORPUSCULAR HGB CONC 32.5 g/dl (31.0-37.0); MEAN PLATELET VOLUME 11.7 fl (7.0-11.0); MONO # 0.2 (0.1-0.6); MONO % 4.2 % (1.0-6.0); RBC 3.59 10^6/uL (3.5-6.1); WHITE BLOOD COUNT 3.5 10^3/uL (4.5-11.0)
[2018-01-09] MEDS: Morphine 2 mg/ml ISec IVP PRN ×3 (09:06→21:27)
[2018-01-09] MEDS: Silver Sulfadiazine 1% Cream (25 gm) TP SCH ×2 (09:24→18:20)
--- NOTE | 2018-01-09 10:40 | PN ---
DATE: 01/09/2018 SUBJECTIVE: The patient is in bed in no acute distress, nontoxic. PHYSICAL EXAMINATION: VITAL SIGNS: Temperature 98, blood pressure 82/52, respiratory rate 18, heart rate 68. HEENT: Examination of HEENT is unremarkable. NECK: Supple. LUNGS: Decreased breath sounds. HEART: Normal S1, S2. ABDOMEN: Soft, nontender. LABORATORY DATA: Laboratory examination reveals a white count of 3.9, hemoglobin of 11, platelets of 95. Coagulation is noted. Chemistries reveals a BUN of 6, creatinine of 0.4. Urinalysis is noted and microbiology reveals the blood cultures are no growth. 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 Currently off antibiotics. Review of orders, the patient is on Solu-Medrol. Negative urinalysis and normal white count although on 01/08/2018 it was 2.9 and microbiology reveals the blood cultures are no growth in a patient with history of alcoholic cirrhosis, pancytopenia, bone marrow suppression, osteoarthritis and laryngeal squamous cell cancer. Off antibiotics. We had a negative HIV in October. We will follow with you. The patient's overall prognosis is poor due to her poor nutritional status with a BMI of only 14. Yunior Hdz MD
[2018-01-09] MEDS: Potassium Chl 10 mEq in D5-1/2 1,000 ML IV SCH (15:00)
--- NOTE | 2018-01-09 15:25 | RAD ---
Date of service: 01/08/2018 HISTORY: check PEG TUBE placement COMPARISON: Comparison made with abdominal radiographs 01/08/2018 FINDINGS: BOWEL: There is an in situ PEG tube which courses from the right lateral margin of the abdomen superiorly and medially at with the tip lung overlying the superior aspect left sacral ala.. There appears to be contrast extravasation overlying the surface of the lateral margin of the abdomen-bed clothes and/or sheets. There is opacification of the loops of small bowel in the right abdomen.. BONES: Normal. OTHER FINDINGS: None. IMPRESSION: In situ PEG tube. Contrast extravasation is present over the right lateral margin of the surface of the abdomen as above. Opacification of small bowel right abdomen
[2018-01-10] MEDS: Morphine 2 mg/ml ISec IVP PRN ×4 (04:00→20:55)
[2018-01-10] MEDS: MethylPREDNISolone 40 mg Vial IVP SCH ×3 (04:02→20:55)
[2018-01-10] MEDS: Silver Sulfadiazine 1% Cream (25 gm) TP SCH ×2 (09:48→18:22)
[2018-01-10] MEDS: Potassium Chl 10 mEq in D5-1/2 1,000 ML IV SCH ×2 (09:56→19:42)
--- NOTE | 2018-01-10 17:02 | CP.PCM.PN ---
Subjective - Date & Time of Evaluation Date of Evaluation: 01/09/18 Time of Evaluation: 20:00 - Subjective Subjective: Some discomfort in radiation cite; using topical silvadiene cream; started using J tube feeds ROS: 12 ROS otherwise negative; Objective - Vital Signs/Intake and Output Vital Signs (last 24 hours): Temp Pulse Resp BP Pulse Ox 98 F 65 20 87/56 L 100 01/10/18 08:01 01/10/18 08:01 01/10/18 08:01 01/10/18 08:01 01/10/18 08:01 Intake and Output: 01/10/18 01/10/18 06:59 18:59 Intake Total 780 Balance 780 - Medications Medications: Current Medications Potassium Chloride/Dextrose/Sod Cl (Potassium Chl 10 Meq In D5-1/2ns) 1,000 mls @ 100 mls/hr IV .Q10H [facility] Last Admin: 01/10/18 09:56 Dose: 100 mls/hr Lorazepam (Ativan) 0.5 mg IVP Q8H PRN; Protocol PRN Reason: Anxiety Methylprednisolone (Solu-Medrol) 20 mg IVP Q8H [facility] Last Admin: 01/10/18 12:12 Dose: 20 mg Morphine Sulfate (Morphine) 2 mg IVP Q4H PRN PRN Reason: Pain, severe (8-10) Last Admin: 01/10/18 15:18 Dose: 2 mg Pantoprazole Sodium (Protonix Inj) 40 mg IVP DAILY [facility] Last Admin: 01/10/18 09:47 Dose: 40 mg Silver Sulfadiazine (Silvadene 1% 25 Gm) 0 gm TP BID [facility] Last Admin: 01/10/18 09:48 Dose: 25 gm - Labs Labs: 01/09/18 06:45 01/09/18 06:45 PT 12.8 SECONDS (9.4-12.5) H 01/07/18 18:31 INR 1.12 01/07/18 18:31 APTT 31.3 Seconds (25.1-36.5) 01/08/18 09:45 - Constitutional Appears: Non-toxic - Respiratory Exam Respiratory Exam: Clear to Ausculation Bilateral, NORMAL BREATHING PATTERN - Cardiovascular Exam Cardiovascular Exam: REGULAR RHYTHM, +S1, +S2. absent: Murmur - Extremities Exam Extremities Exam: Full ROM, Normal Capillary Refill, Normal Inspection. absent: Joint Swelling, Pedal Edema - Skin Additional comments: erythema on neck where XRT provided mediport cite appears c/d/i Assessment and Plan - Assessment and Plan (Free Text) Assessment: Ms. Vanessa rich 52 y/o female with a pmhx significant for ETOH abuse; ETOH cirrhosis; and largyneal SCC currently undergoing XRT who was admitted for for J tube dysfunction. Jtube had migrated and now appears to in proper place per dye study. No issues with feeds thus far. Continue with XRT and topical silvadiene cream.
--- NOTE | 2018-01-10 17:04 | CP.PCM.PN ---
Subjective - Date & Time of Evaluation Date of Evaluation: 01/10/18 Time of Evaluation: 19:00 - Subjective Subjective: Some discomfort at Jtube insertion cite when coughing or moving. difficulty swallowing salivary secretions. Continues with J tube feedings ROS; 12 ROS otherwise negative Objective - Vital Signs/Intake and Output Vital Signs (last 24 hours): Temp Pulse Resp BP Pulse Ox 98 F 65 20 87/56 L 100 01/10/18 08:01 01/10/18 08:01 01/10/18 08:01 01/10/18 08:01 01/10/18 08:01 Intake and Output: 01/10/18 01/10/18 06:59 18:59 Intake Total 780 Balance 780 - Medications Medications: Current Medications Potassium Chloride/Dextrose/Sod Cl (Potassium Chl 10 Meq In D5-1/2ns) 1,000 mls @ 100 mls/hr IV .Q10H [facility] Last Admin: 01/10/18 09:56 Dose: 100 mls/hr Lorazepam (Ativan) 0.5 mg IVP Q8H PRN; Protocol PRN Reason: Anxiety Methylprednisolone (Solu-Medrol) 20 mg IVP Q8H [facility] Last Admin: 01/10/18 12:12 Dose: 20 mg Morphine Sulfate (Morphine) 2 mg IVP Q4H PRN PRN Reason: Pain, severe (8-10) Last Admin: 01/10/18 15:18 Dose: 2 mg Pantoprazole Sodium (Protonix Inj) 40 mg IVP DAILY [facility] Last Admin: 01/10/18 09:47 Dose: 40 mg Silver Sulfadiazine (Silvadene 1% 25 Gm) 0 gm TP BID [facility] Last Admin: 01/10/18 09:48 Dose: 25 gm - Labs Labs: 01/09/18 06:45 01/09/18 06:45 PT 12.8 SECONDS (9.4-12.5) H 01/07/18 18:31 INR 1.12 01/07/18 18:31 APTT 31.3 Seconds (25.1-36.5) 01/08/18 09:45 - Constitutional Appears: Non-toxic - Neck Exam Additional comments: erthyema in radiation cite w/o desquamation - Respiratory Exam Respiratory Exam: Clear to Ausculation Bilateral, NORMAL BREATHING PATTERN - Cardiovascular Exam Cardiovascular Exam: REGULAR RHYTHM, +S1, +S2. absent: Murmur - GI/Abdominal Exam GI & Abdominal Exam: Soft, Normal Bowel Sounds. absent: Tenderness - Extremities Exam Extremities Exam: Full ROM, Normal Capillary Refill, Normal Inspection. absent: Joint Swelling, Pedal Edema Assessment and Plan - Assessment and Plan (Free Text) Assessment: Ms. Vanessa rich 52 y/o female with a pmhx significant for ETOH abuse; ETOH cirrhosis; and largyneal SCC currently undergoing XRT who was admitted for for J tube dysfunction. Jtube had migrated and now appears to in proper place per dye study. No issues with feeds thus far. Continue with XRT and topical silvadiene cream. Surgery to f/u to assess J tube placement given patients increased pain.
--- NOTE | 2018-01-10 21:05 | PN ---
DATE: 01/10/2018 SUBJECTIVE: The patient is in bed in no acute distress. PHYSICAL EXAMINATION: VITAL SIGNS: Temperature is 98, blood pressure is 89/60, respiratory rate 20, heart rate of 65. HEENT: Examination of HEENT is unremarkable. NECK: Supple. Examination of the patient's neck reveals the patient has erythema. LUNGS: Decreased breath sounds. HEART: Normal S1, S2. ABDOMEN: Soft, nontender. LABORATORY EXAMINATION: Reveals the patient's white count is 3.5, hemoglobin is 11, and platelets of 96. Chemistries, BUN of 6, creatinine of 0.6, and urinalysis is noted. Microbiology reveals a coag-negative staph. ASSESSMENT/PLAN: A 52-year-old female seen earlier this morning with a history of alcohol abuse, liver cirrhosis, ascites, G-tube placement, depression, anxiety, J-tube dislodged without any evidence of skin and skin structure. The patient has a neck rash which is consistent with radiation dermatitis. There appears to be no evidence of cellulitis on my exam. Currently, the patient is off of antibiotics. Review of orders reveals the patient is off of antibiotics. The patient is on Solu-Medrol. However, the patient is at risk for developing nosocomial infections. Yunior Hdz MD
[2018-01-11] MEDS: MethylPREDNISolone 40 mg Vial IVP SCH ×3 (05:34→21:30)
[2018-01-11] MEDS: Potassium Chl 10 mEq in D5-1/2 1,000 ML IV SCH ×2 (05:35→17:22)
[2018-01-11] MEDS: Morphine 2 mg/ml ISec IVP PRN ×3 (05:38→14:12)
--- NOTE | 2018-01-11 08:21 | CP.PCM.PN ---
Subjective - Date & Time of Evaluation Date of Evaluation: 01/11/18 Time of Evaluation: 08:17 - Subjective Subjective: Rachel Skinner DO, PGY-2: Hematology and Oncology Progress Note for Dr. Cleveland Patient was seen and examined at bedside. Patient reports having watery stools since Thursday. She is on continuous J tube feeds. She denies any pain in the ab domen. She also denies fevers or chills. She reports that her oropharyngeal secretions have become more difficult to swallow. She reports that her neck pain has declined in intensity. The surgical team was spoken to in regards to assessing the patient's J-tube prior to her discharge. Otherwise, no adverse events noted overnight. Objective - Vital Signs/Intake and Output Vital Signs (last 24 hours): Temp Pulse Resp BP Pulse Ox 98 F 82 19 94/63 L 97 01/11/18 08:08 01/11/18 08:08 01/11/18 08:08 01/11/18 08:08 01/11/18 08:08 - Medications Medications: Current Medications Potassium Chloride/Dextrose/Sod Cl (Potassium Chl 10 Meq In D5-1/2ns) 1,000 mls @ 100 mls/hr IV .Q10H [facility] Last Admin: 01/11/18 05:35 Dose: 100 mls/hr Lorazepam (Ativan) 0.5 mg IVP Q8H PRN; Protocol PRN Reason: Anxiety Methylprednisolone (Solu-Medrol) 20 mg IVP Q8H [facility] Last Admin: 01/11/18 05:34 Dose: 20 mg Morphine Sulfate (Morphine) 2 mg IVP Q4H PRN PRN Reason: Pain, severe (8-10) Last Admin: 01/11/18 05:38 Dose: 2 mg Pantoprazole Sodium (Protonix Inj) 40 mg IVP DAILY [facility] Last Admin: 01/10/18 09:47 Dose: 40 mg Silver Sulfadiazine (Silvadene 1% 25 Gm) 0 gm TP BID [facility] Last Admin: 01/10/18 18:22 Dose: 25 gm - Labs Labs: 01/09/18 06:45 01/09/18 06:45 PT 12.8 SECONDS (9.4-12.5) H 01/07/18 18:31 INR 1.12 01/07/18 18:31 APTT 31.3 Seconds (25.1-36.5) 01/08/18 09:45 - Constitutional Appears: Non-toxic, No Acute Distress - Head Exam Head Exam: ATRAUMATIC, NORMOCEPHALIC - Eye Exam Eye Exam: EOMI, Normal appearance - ENT Exam ENT Exam: Mucous Membranes Moist - Neck Exam Additional comments: anterior neck appears dry, mildly red - Respiratory Exam Respiratory Exam: Clear to Ausculation Bilateral, NORMAL BREATHING PATTERN. absent: Accessory Muscle Use - Cardiovascular Exam Cardiovascular Exam: RRR, +S1, +S2 - GI/Abdominal Exam GI & Abdominal Exam: Soft, Normal Bowel Sounds. absent: Rebound - Extremities Exam Extremities Exam: Normal Inspection. absent: Calf Tenderness - Back Exam Back Exam: absent: CVA tenderness (L), CVA tenderness (R) - Neurological Exam Neurological Exam: Alert, Awake, Oriented x3 - Psychiatric Exam Psychiatric exam: Normal Affect, Normal Mood - Skin Skin Exam: Dry, Intact Assessment and Plan - Assessment and Plan (Free Text) Assessment: Assessment and Plan: Patient is a 52 year old female with a past medical history significant for alcohol abuse, alcoholic cirrhosis, pancytopenia likely secondary to alcohol induced bone marrow suppression, rheumatoid arthritis and laryngeal squamous cell carcinoma who was admitted for evaluation and treatment of J tube dysfunction. J-Tube Dysfunction - Resolved, patient on J-tube feedings, rate decreased to 40 mls/hr; will assess residuals periodically Diarrhea Stool for C. 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 Cleveland
[2018-01-11 08:31] LABS: BASO # 0.01 K/mm3 (0.0-2.0); BASO % 0.1 % (0.0-3.0); GRAN # 10.04 (1.4-6.5); GRAN % 92.9 % (50.0-68.0); LYMPH # 0.5 (1.2-3.4); LYMPH % 4.9 % (22.0-35.0); MEAN CELL VOLUME 97.9 fl (80.0-105.0); MEAN CORPUSCULAR HEMOGLOBIN 32.2 pg (25.0-35.0); MEAN CORPUSCULAR HGB CONC 32.9 g/dl (31.0-37.0); MEAN PLATELET VOLUME 11.6 fl (7.0-11.0); MONO # 0.2 (0.1-0.6); MONO % 2.1 % (1.0-6.0); PLATELET COUNT 111 10^3/uL (120.0-450.0); RBC 4.32 10^6/uL (3.5-6.1); RED CELL DISTRIBUTION WIDTH 13.4 % (11.5-14.5); WHITE BLOOD COUNT 10.8 10^3/uL (4.5-11.0)
[2018-01-11 08:34] LABS: HEMOGLOBIN 13.9 g/dL (12.0-16.0)
[2018-01-11 08:55] LABS: ALBUMIN 2.7 g/dL (3.0-4.8); ALT/SGPT 34 U/L (7-56); AST/SGOT 35 U/L (14-36); BLOOD UREA NITROGEN 7 mg/dL (7-21); CALCIUM 8.2 mg/dL (8.4-10.5); GFR NON-AFRICAN AMERICAN > 60
[2018-01-11 09:17] LABS: BAND 2 % (0-2); LYMPHOCYTE 2 % (22.0-35.0); MONOCYTE 3 % (1.0-6.0); NEUTROPHIL 93 % (50.0-70.0)
[2018-01-11 09:18] LABS: PLATELET ESTIMATE NORMAL (NORMAL)
[2018-01-11] MEDS: Silver Sulfadiazine 1% Cream (25 gm) TP SCH ×2 (10:17→17:22)
[2018-01-11] MEDS ORDERED: Morphine 2 mg/ml ISec IVP PRN (15:46)
[2018-01-11] MEDS ORDERED: MethylPREDNISolone 40 mg Vial IVP SCH ×2 (15:49→20:00)
--- NOTE | 2018-01-11 21:00 | CP.PCM.PN ---
Subjective - Date & Time of Evaluation Date of Evaluation: 01/11/18 Time of Evaluation: 09:50 - Subjective Subjective: Comfortable, not in distress. Objective - Vital Signs/Intake and Output Vital Signs (last 24 hours): Temp Pulse Resp BP Pulse Ox 98.2 F 86 18 90/60 L 98 01/11/18 18:00 01/11/18 18:00 01/11/18 18:00 01/11/18 18:00 01/11/18 18:00 Intake and Output: 01/11/18 01/12/18 18:59 06:59 Intake Total 1705 Output Total 500 Balance 1205 - Medications Medications: Current Medications Potassium Chloride/Dextrose/Sod Cl (Potassium Chl 10 Meq In D5-1/2ns) 1,000 mls @ 100 mls/hr IV .Q10H [facility] Last Admin: 01/11/18 17:22 Dose: 100 mls/hr Lorazepam (Ativan) 0.5 mg IVP Q8H PRN; Protocol PRN Reason: Anxiety Methylprednisolone (Solu-Medrol) 10 mg IVP Q8H [facility] Morphine Sulfate (Morphine Oral Soln) 2 mg PO Q6H PRN PRN Reason: Pain, severe (8-10) Pantoprazole Sodium (Protonix Inj) 40 mg IVP DAILY [facility] Last Admin: 01/11/18 10:17 Dose: 40 mg Silver Sulfadiazine (Silvadene 1% 25 Gm) 0 gm TP BID [facility] Last Admin: 01/11/18 17:22 Dose: 25 gm - Labs Labs: 01/11/18 08:10 01/11/18 08:10 PT 12.8 SECONDS (9.4-12.5) H 01/07/18 18:31 INR 1.12 01/07/18 18:31 APTT 31.3 Seconds (25.1-36.5) 01/08/18 09:45 - Constitutional Appears: Chronically Ill - Head Exam Head Exam: NORMAL INSPECTION - Respiratory Exam Respiratory Exam: Decreased Breath Sounds - Cardiovascular Exam Cardiovascular Exam: +S1, +S2 - GI/Abdominal Exam GI & Abdominal Exam: Soft. 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 diff. overall prognosis is poor
[2018-01-11] MEDS: Morphine 10 mg/5 ml Oral Soln PO PRN (21:29)
[2018-01-12] MEDS: Morphine 10 mg/5 ml Oral Soln PO PRN ×4 (03:29→23:57)
[2018-01-12] MEDS: Potassium Chl 10 mEq in D5-1/2 1,000 ML IV SCH ×2 (03:29→12:52)
[2018-01-12] MEDS: MethylPREDNISolone 40 mg Vial IVP SCH ×2 (03:30→12:41)
[2018-01-12] MEDS: Silver Sulfadiazine 1% Cream (25 gm) TP SCH ×2 (10:06→17:50)
[2018-01-12] MEDS ORDERED: Morphine 2 mg/ml ISec IVP ONE (13:00)
[2018-01-12] MEDS ORDERED: Loperamide Hydrochloride 1 mg/5 ml Cup PEG PRN (13:31)
--- NOTE | 2018-01-12 13:51 | CP.PCM.PN ---
Subjective - Date & Time of Evaluation Date of Evaluation: 01/12/18 Time of Evaluation: 12:30 - Subjective Subjective: Surgery progress note for Dr. Lobato Pt seen and examined at bedside. No acute events. Patient still having some diarrhea but not problems with flushing feeds into the jejunostomy tube or any drainage around the insertion site. Objective - Vital Signs/Intake and Output Vital Signs (last 24 hours): Temp Pulse Resp BP Pulse Ox 98 F 60 19 87/55 L 97 01/12/18 08:56 01/12/18 08:56 01/12/18 08:56 01/12/18 08:56 01/12/18 08:56 - Medications Medications: Current Medications Potassium Chloride/Dextrose/Sod Cl (Potassium Chl 10 Meq In D5-1/2ns) 1,000 mls @ 100 mls/hr IV .Q10H [facility] Last Admin: 01/12/18 12:52 Dose: 100 mls/hr Loperamide HCl (Imodium) 2 mg PEG Q4 PRN PRN Reason: Diarrhea Lorazepam (Ativan) 0.5 mg IVP Q8H PRN; Protocol PRN Reason: Anxiety Methylprednisolone (Solu-Medrol) 10 mg IVP Q8H [facility] Last Admin: 01/12/18 12:41 Dose: 10 mg Morphine Sulfate (Morphine Oral Soln) 2 mg PO Q6H PRN PRN Reason: Pain, severe (8-10) Last Admin: 01/12/18 12:40 Dose: 2 mg Pantoprazole Sodium (Protonix Inj) 40 mg IVP DAILY [facility] Last Admin: 01/12/18 10:05 Dose: 40 mg Silver Sulfadiazine (Silvadene 1% 25 Gm) 0 gm TP BID [facility] Last Admin: 01/12/18 10:06 Dose: 25 gm - Labs Labs: 01/11/18 08:10 01/11/18 08:10 PT 12.8 SECONDS (9.4-12.5) H 01/07/18 18:31 INR 1.12 01/07/18 18:31 APTT 31.3 Seconds (25.1-36.5) 01/08/18 09:45 - Constitutional Appears: Non-toxic, No Acute Distress, Chronically Ill - Head Exam Head Exam: ATRAUMATIC, NORMOCEPHALIC - Eye Exam Eye Exam: Normal appearance. absent: Conjunctival injection, Scleral icterus - ENT Exam ENT Exam: Mucous Membranes Moist - Neck Exam Additional comments: erythema of the skin at the anterior neck - Respiratory Exam Respiratory Exam: NORMAL BREATHING PATTERN. absent: Accessory Muscle Use, Respiratory Distress - Cardiovascular Exam Cardiovascular Exam: RRR - GI/Abdominal Exam GI & Abdominal Exam: Soft, Tenderness (mild LLQ tenderness). absent: Distended Additional comments: jejunostomy tube in the LLQ with minimal serous drainage, same position as prior exam, no surrounding erythema or swelling - Extremities Exam Extremities Exam: absent: Calf Tenderness, Pedal Edema - Neurological Exam Neurological Exam: Alert, Awake, Oriented x3 - Psychiatric Exam Psychiatric exam: Normal Affect, Normal Mood - Skin Skin Exam: Dry, Normal Color, Warm Additional comments: except as noted above Assessment and Plan - Assessment and Plan (Free Text) Assessment: 52F with pharyngeal cancer with jejunostomy tube Plan: Continue current management No concern for malposition of jejunostomy tube at this time--patient has a well developed track at this point. If patient has any dislodgement at home she may re-insert tube or call Dr. Lobato's office or come to ER Continue tube feeds No indication for surgical intervention at this time Call surgical team for any further questions or concerns Discussed with Dr. Luis Alfredo Vega, PGY2
--- NOTE | 2018-01-12 14:07 | PN ---
DATE: 01/12/2018 SUBJECTIVE: The patient is in bed in no acute distress, nontoxic. Patient is doing well. OBJECTIVE: VITAL SIGNS: Temperature is 98, blood pressure is 90/60, respiratory rate of 18. HEENT: Unremarkable. NECK: Supple. LUNGS: Have decreased breath sounds. HEART: Normal S1, S2. ABDOMEN: Soft. LABORATORY EXAMINATION: Reveals a white count of 10,000, hemoglobin of 13. Chemistries are noted. Urinalysis is noted. Microbiology reveals a coag-negative staph from the PEG tube. Review of orders reveals the patient is off of antibiotics. The patient is on prednisone. 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 The patient is at risk for developing nosocomial infection in a patient who is chronically ill, cachectic with a BMI of only 14. Yunior Hdz MD
--- NOTE | 2018-01-12 16:53 | CP.PCM.PN ---
Subjective - Date & Time of Evaluation Date of Evaluation: 01/12/18 Time of Evaluation: 16:50 - Subjective Subjective: Rachel Skinner DO, PGY-2: Hematology and Oncology Progress Note for Dr. Cleveland Patient was seen and examined at bedside. Patient reports difficulty swallowing her saliva. Nurse reports patient's diarrhea was consistent when J-tube feeds were at a rate greater than 40 mls/hr. The patient's pain medication was also redressed. Surgical team was also spoken to in regards to the patient's J-tube. Objective - Vital Signs/Intake and Output Vital Signs (last 24 hours): Temp Pulse Resp BP Pulse Ox 98 F 60 19 87/55 L 97 01/12/18 08:56 01/12/18 08:56 01/12/18 08:56 01/12/18 08:56 01/12/18 08:56 - Medications Medications: Current Medications Potassium Chloride/Dextrose/Sod Cl (Potassium Chl 10 Meq In D5-1/2ns) 1,000 mls @ 100 mls/hr IV .Q10H [facility] Last Admin: 01/12/18 12:52 Dose: 100 mls/hr Loperamide HCl (Imodium) 2 mg PEG Q4 PRN PRN Reason: Diarrhea Lorazepam (Ativan) 0.5 mg IVP Q8H PRN; Protocol PRN Reason: Anxiety Morphine Sulfate (Morphine Oral Soln) 5 mg PO Q4H PRN PRN Reason: Pain, severe (8-10) Nystatin (Nystatin Oral Susp) 5 ml PO QID [facility] Pantoprazole Sodium (Protonix Inj) 40 mg IVP DAILY [facility] Last Admin: 01/12/18 10:05 Dose: 40 mg Silver Sulfadiazine (Silvadene 1% 25 Gm) 0 gm TP BID [facility] Last Admin: 01/12/18 10:06 Dose: 25 gm - Labs Labs: 01/11/18 08:10 01/11/18 08:10 PT 12.8 SECONDS (9.4-12.5) H 01/07/18 18:31 INR 1.12 01/07/18 18:31 APTT 31.3 Seconds (25.1-36.5) 01/08/18 09:45 - Constitutional Appears: Non-toxic, No Acute Distress - Head Exam Head Exam: ATRAUMATIC, NORMOCEPHALIC - Eye Exam Eye Exam: EOMI, Normal appearance - ENT Exam ENT Exam: Mucous Membranes Moist - Neck Exam Neck Exam: Normal Inspection - Respiratory Exam Respiratory Exam: Clear to Ausculation Bilateral, NORMAL BREATHING PATTERN. absent: Accessory Muscle Use - Cardiovascular Exam Cardiovascular Exam: RRR, +S1, +S2 - GI/Abdominal Exam GI & Abdominal Exam: Soft, Normal Bowel Sounds - Extremities Exam Extremities Exam: Normal Inspection. 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 Oropharyngeal dysphagia - Trial of Nystatin QID J-Tube Dysfunction - Resolved, patient on J-tube feedings, rate decreased to 40 mls/hr; will assess residuals periodically - Surgery recommends no further intervention Diarrhea, likely secondary to poor absorption of J-tube Stool for C. 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 Case reviewed discussed with attending physician, Dr. Cleveland
[2018-01-12] MEDS: Nystatin 100,000 Units/ml Oral Susp 5 ml UD PO SCH ×2 (17:49→21:09)
[2018-01-13] MEDS: Potassium Chl 10 mEq in D5-1/2 1,000 ML IV SCH (00:09)
[2018-01-13 06:36] LABS: BASO # 0.01 K/mm3 (0.0-2.0); BASO % 0.2 % (0.0-3.0); EOS % 0.7 % (1.5-5.0); GRAN # 4.82 (1.4-6.5); GRAN % 83.3 % (50.0-68.0); LYMPH # 0.4 (1.2-3.4); LYMPH % 7.3 % (22.0-35.0); MEAN CELL VOLUME 98.9 fl (80.0-105.0); MEAN CORPUSCULAR HEMOGLOBIN 31.8 pg (25.0-35.0); MEAN CORPUSCULAR HGB CONC 32.2 g/dl (31.0-37.0); MEAN PLATELET VOLUME 11.6 fl (7.0-11.0); MONO # 0.5 (0.1-0.6); MONO % 8.5 % (1.0-6.0); RBC 3.58 10^6/uL (3.5-6.1); RED CELL DISTRIBUTION WIDTH 13.5 % (11.5-14.5); WHITE BLOOD COUNT 5.8 10^3/uL (4.5-11.0)
[2018-01-13 06:45] LABS: HEMOGLOBIN 11.4 g/dL (12.0-16.0)
[2018-01-13 07:15] LABS: ALB/GLOB RATIO 0.9 (1.1-1.8); ALBUMIN 2.1 g/dL (3.0-4.8); ALT/SGPT 33 U/L (7-56); AST/SGOT 24 U/L (14-36); BLOOD UREA NITROGEN 7 mg/dL (7-21); CALCIUM 7.6 mg/dL (8.4-10.5); GFR NON-AFRICAN AMERICAN > 60
[2018-01-13 08:07] VITALS: O2SAT 98
[2018-01-13] MEDS: Morphine 10 mg/5 ml Oral Soln PO PRN ×2 (09:09→14:51)
[2018-01-13] MEDS: Nystatin 100,000 Units/ml Oral Susp 5 ml UD PO SCH ×2 (09:10→14:51)
[2018-01-13] MEDS: Silver Sulfadiazine 1% Cream (25 gm) TP SCH (09:14)
--- NOTE | 2018-01-13 13:03 | CP.PCM.DIS ---
Provider - Provider Date of Admission: 01/07/18 20:32 Attending physician: Baldo Best MD Consults: 01/07/18 17:35 Gastroenterology Consult Routine Comment: Consulting Provider: Olman Herrera V Consulting Physician: Olman Herrera V Reason for Consult: J-tube evaluation Infectious Disease Consult Routine Comment: Consulting Provider: Yunior Hdz Consulting Physician: Yunior Hdz Reason for Consult: infected J-tube 01/07/18 17:36 Consult [Physician Consult] Routine Comment: Consulting Provider: Andres Lagos Consulting Physician: Andres Lagos Reason for Consult: J-tube evaluation 01/07/18 19:43 Consult [Physician Consult] Stat Comment: Consulting Provider: Timo Lobato Consulting Physician: Timo Lobato Reason for Consult: jej dislodged 01/07/18 19:49 Consult [Physician Consult] Stat Comment: Consulting Provider: Tali Carrero Consulting Physician: Tali Carrero Reason for Consult: rad eval/fu 01/08/18 00:02 Nursing Referral for Palliative Care Routine Comment: Physician Instructions: Reason For Exam: PROTOCOL 01/08/18 00:10 Social Work Referral Routine Comment: RICH SCORE 7 Physician Instructions: Reason For Exam: PROTOCOL 01/11/18 10:36 Case Management Referral Routine Comment: Physician Instructions: Reason For Exam: disposition planning Reason for Referral: Discharge Planning Time Spent in preparation of Discharge (in minutes): 55 Hospital Course - Lab Results Lab Results: Micro Results 01/07/18 18:40 Blood Blood Culture - Final NO GROWTH AFTER 5 DAYS 01/07/18 18:40 Blood Gram Stain - Final TEST NOT PERFORMED 01/07/18 18:31 Blood Blood Culture - Final NO GROWTH AFTER 5 DAYS 01/07/18 18:31 Blood Gram Stain - Final TEST NOT PERFORMED 01/07/18 23:40 Peg Site Gram Stain - Final 01/07/18 23:40 Peg Site Wound Culture - Final Coagulase Neg Staphylococcus 01/08/18 03:30 Urine Urine Culture - Final No Growth (<1,000 CFU/ML) Most Recent Lab Values WBC 5.8 10^3/uL (4.5-11.0) D 01/13/18 06:00 RBC 3.58 10^6/uL (3.5-6.1) 01/13/18 06:00 Hgb 11.4 g/dL (12.0-16.0) L D 01/13/18 06:00 Hct 35.4 % (36.0-48.0) L 01/13/18 06:00 MCV 98.9 fl (80.0-105.0) 01/13/18 06:00 MCH 31.8 pg (25.0-35.0) 01/13/18 06:00 MCHC 32.2 g/dl (31.0-37.0) 01/13/18 06:00 RDW 13.5 % (11.5-14.5) 01/13/18 06:00 Plt Count 77 10^3/uL (120.0-450.0) L 01/13/18 06:00 MPV 11.6 fl (7.0-11.0) H 01/13/18 06:00 Gran % 83.3 % (50.0-68.0) H 01/13/18 06:00 Lymph % (Auto) 7.3 % (22.0-35.0) L 01/13/18 06:00 [place] % (Auto) 8.5 % (1.0-6.0) H 01/13/18 06:00 Eos % (Auto) 0.7 % (1.5-5.0) L 01/13/18 06:00 Baso % (Auto) 0.2 % (0.0-3.0) 01/13/18 06:00 Gran # 4.82 (1.4-6.5) 01/13/18 06:00 Lymph # (Auto) 0.4 (1.2-3.4) L 01/13/18 06:00 [place] # (Auto) 0.5 (0.1-0.6) 01/13/18 06:00 Eos # (Auto) 0.0 (0.0-0.7) 01/13/18 06:00 Baso # (Auto) 0.01 K/mm3 (0.0-2.0) 01/13/18 06:00 Neutrophils % (Manual) 93 % (50.0-70.0) H 01/11/18 08:10 Band Neutrophils % 2 % (0-2) 01/11/18 08:10 Lymphocytes % (Manual) 2 % (22.0-35.0) L 01/11/18 08:10 Monocytes % (Manual) 3 % (1.0-6.0) 01/11/18 08:10 Basophils % (Manual) 1 % (0.0-1.0) 01/08/18 05:45 Platelet Evaluation Normal (NORMAL) 01/11/18 08:10 PT 12.8 SECONDS (9.4-12.5) H 01/07/18 18:31 INR 1.12 01/07/18 18:31 APTT 31.3 Seconds (25.1-36.5) 01/08/18 09:45 Fibrinogen 310 mg/dl (200-400) 01/08/18 05:45 Fibrin Degrad Products <10 ug/ml (< 10 ug/mL) 01/08/18 05:45 Sodium 138 mmol/L (132-148) 01/13/18 06:00 Potassium 3.9 mmol/L (3.6-5.0) 01/13/18 06:00 Chloride 105 mmol/L (98-107) 01/13/18 06:00 Carbon Dioxide 32 mmol/L (21-33) 01/13/18 06:00 Anion Gap 4 (10-20) L 01/13/18 06:00 BUN 7 mg/dL (7-21) 01/13/18 06:00 Creatinine 0.4 mg/dl (0.7-1.2) L 01/13/18 06:00 Est GFR ( Amer) > 60 01/13/18 06:00 Est GFR (Non-Af Amer) > 60 01/13/18 06:00 Random Glucose 108 mg/dL (70-110) 01/13/18 06:00 Calcium 7.6 mg/dL (8.4-10.5) L 01/13/18 06:00 Phosphorus 2.3 mg/dL (2.5-4.5) L 01/11/18 08:10 Magnesium 1.9 mg/dL (1.7-2.2) 01/13/18 06:00 Total Bilirubin 0.2 mg/dL (0.2-1.3) 01/13/18 06:00 AST 24 U/L (14-36) 01/13/18 06:00 ALT 33 U/L (7-56) 01/13/18 06:00 Alkaline Phosphatase 47 U/L (38-126) 01/13/18 06:00 Total Protein 4.4 g/dL (5.8-8.3) L 01/13/18 06:00 Albumin 2.1 g/dL (3.0-4.8) L 01/13/18 06:00 Globulin 2.3 gm/dL 01/13/18 06:00 Albumin/Globulin Ratio 0.9 (1.1-1.8) L 01/13/18 06:00 Amylase 36 U/L (35-125) 01/07/18 20:07 Lipase 51 U/L (23-300) 01/07/18 20:07 Vitamin B12 423 pg/mL (239-931) 01/08/18 05:45 Urine Color Yellow (YELLOW) 01/08/18 03:30 Urine Appearance Clear (CLEAR) 01/08/18 03:30 Urine pH 6.0 (4.7-8.0) 01/08/18 03:30 Ur Specific Young 1.025 (1.005-1.035) 01/08/18 03:30 Urine Protein Negative mg/dL (<30 mg/dL) 01/08/18 03:30 Urine Glucose (UA) Negative mg/dL (NEGATIVE) 01/08/18 03:30 Urine Ketones Trace mg/dL (NEGATIVE) H 01/08/18 03:30 Urine Blood Negative (NEGATIVE) 01/08/18 03:30 Urine Nitrate Negative (NEGATIVE) 01/08/18 03:30 Urine Bilirubin Negative (NEGATIVE) 01/08/18 03:30 Urine Urobilinogen 0.2 E.U./dL (<1 E.U./dL) 01/08/18 03:30 Ur Leukocyte Esterase Negative [place]/uL (NEGATIVE) 01/08/18 03:30 - Hospital Course Hospital Course: 52 year old female with a past medical history of locally advanced laryngeal cancer on Cetuximab and radiation, alcoholic liver disease, anxiety, with jejust bentley tube placed in October of this year who presented to [facility] for evaluation and treatment of J tube being out of place.Surgery was consulted and fixed J- tube. Radiation oncology completed patient's session of radiation while in house. Patient caloric intake was re-evaluated and she was discharged with a prescription for a 30 day supply of Osmolite 1.0 four times daily and Prostat two times daily. Patient's radiation dermatitis was treated with silver sulfadiene while her oropharnygeal dysphagia was palliated with the use of Nystatin swish and spit out after a minute. The patient pain regimen was also altered to morphine 5 mg q4h PRN. She was discharged with the below written instructions and recommendations. She will follow up in the infusion clinic this Thursday for her chemotherapy. - Date & Time of H&P Date of H&P: 01/13/18 Time of H&P: 13:53 Discharge Exam - Head Exam Head Exam: ATRAUMATIC, NORMOCEPHALIC - Eye Exam Eye Exam: EOMI, Normal appearance - ENT Exam ENT Exam: Mucous Membranes Moist - Neck Exam Additional comments: anterior neck mildly red - Respiratory Exam Respiratory Exam: Clear to PA & Lateral, NORMAL BREATHING PATTERN. absent: Accessory Muscle Use - Cardiovascular Exam Cardiovascular Exam: RRR, +S1, +S2 - GI/Abdominal Exam GI & Abdominal Exam: Normal Bowel Sounds. absent: Guarding, Rebound - Extremities Exam Extremities exam: normal inspection - Neurological Exam Neurological exam: Alert, CN II-XII Intact, Oriented x3 - Psychiatric Exam Psychiatric exam: Normal Affect, Normal Mood - Skin Skin Exam: Dry, Intact, Normal Color, Warm Discharge Plan - Discharge Medications Prescriptions: Nystatin [Nystatin Oral Susp] 5 ml PO QID #300 udc Silver Sulfadiazine 1% 25 gm [Silvadene 1% 25 gm] 25 g TP BID #1 cream - Follow Up Plan Condition: FAIR Disposition: HOME/ ROUTINE Additional Instructions: 1) Patient to follow up with Dr. Cleveland within one week of discharge and to come to infusion clinic this Thursday from Chemotherapy. 2) Patient to take any medication as directed, unless otherwise indicated. 3) Patient to take Osmolite 1.0 four times a day and Prostat 2 times a day.
--- NOTE | 2018-01-13 15:44 | CP.PCM.PN ---
Subjective - Date & Time of Evaluation Date of Evaluation: 01/13/18 Time of Evaluation: 10:20 - Subjective Subjective: Non-toxic, no fevers. Objective - Vital Signs/Intake and Output Vital Signs (last 24 hours): Temp Pulse Resp BP Pulse Ox 97.8 F 66 19 93/60 L 98 01/13/18 07:00 01/13/18 07:00 01/13/18 07:00 01/13/18 07:00 01/13/18 07:00 - Medications Medications: Current Medications Loperamide HCl (Imodium) 2 mg PEG Q4 PRN PRN Reason: Diarrhea Morphine Sulfate (Morphine Oral Soln) 5 mg PO Q4H PRN PRN Reason: Pain, severe (8-10) Last Admin: 01/13/18 14:51 Dose: 5 mg Nystatin (Nystatin Oral Susp) 5 ml PO QID [facility] Last Admin: 01/13/18 14:51 Dose: 5 ml Silver Sulfadiazine (Silvadene 1% 25 Gm) 0 gm TP BID [facility] Last Admin: 01/13/18 09:14 Dose: 25 gm - Labs Labs: 01/13/18 06:00 01/13/18 06:00 PT 12.8 SECONDS (9.4-12.5) H 01/07/18 18:31 INR 1.12 01/07/18 18:31 APTT 31.3 Seconds (25.1-36.5) 01/08/18 09:45 - Constitutional Appears: Cachectic, Chronically Ill - Head Exam Head Exam: NORMAL INSPECTION - Respiratory Exam Respiratory Exam: Decreased Breath Sounds - Cardiovascular Exam Cardiovascular Exam: +S1, +S2 - GI/Abdominal Exam GI & Abdominal Exam: Soft. 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
[2018-01-13 16:37] VITALS: BP 88/59; PULSE 84; RESP 20; TEMP 99
--- NOTE | 2018-01-14 19:37 | PQF ---
PROVIDER RESPONSE TEXT: Severe 3rd degree REVIEWER QUERY TEXT: Malnutrition Severity Malnutrition is documented in the Medical Record. Please specify the severity Such as: -- Mild - first degree -- Moderate - second degree -- Severe - third degree -- Severe malnutrition with marasmus -- Other, please specify The patient's Clinical Indicators include: Please specify severity of malnutrition with cachexia and BMI =14 Query created by: Norma Ortiz on 01/14/2018 8:10 AM Electronically signed by: Baldo Best MD 01/14/2018 7:34 PM
== END 2018-01-13 18:10 | disposition home health service (06) | DRG 552 ==
LOC: ED 17:14 → ERH 20:32 → 3RNO 22:49
PROVIDERS: ADMIT Family Medicine; ATTEND Family Medicine
DX: K94.13 Enterostomy malfunction (principal); E43 Unspecified severe protein-calorie malnutrition; R64 Cachexia; K70.31 Alcoholic cirrhosis of liver with ascites; D69.6 Thrombocytopenia, unspecified; E27.40 Unspecified adrenocortical insufficiency; C10.9 Malignant neoplasm of oropharynx, unspecified; C32.1 Malignant neoplasm of supraglottis; L59.8 Other specified disorders of the skin and subcutaneous tissue related to radiation; R13.12 Dysphagia, oropharyngeal phase; D63.8 Anemia in other chronic diseases classified elsewhere; F32.9 Major depressive disorder, single episode, unspecified; F41.9 Anxiety disorder, unspecified; M06.9 Rheumatoid arthritis, unspecified; R19.7 Diarrhea, unspecified; F10.10 Alcohol abuse, uncomplicated; Y83.3 Surgical operation with formation of external stoma as the cause of abnormal reaction of the patient, or of later complication, without mention of misadventure at the time of the procedure; Z68.1 Body mass index [BMI] 19.9 or less, adult

== ENCOUNTER 2018-02-09 22:31 | Inpatient (IN) | payer OTHER ==
[2018-02-09 22:54] VITALS: BMI 13.0
--- NOTE | 2018-02-09 23:26 | ED PDOC ---
Arrival/HPI <New Mathur - Last Filed: 02/09/18 23:59> - General Historian: Patient - History of Present Illness Narrative History of Present Illness (Text): 02/09/18 23:25 52-year-old female with past medical history of pharyngeal cancer, currently has a PEG tube for feeding, presents to the emergency room for evaluation s/p PEG tube "falling out" 5 days ago as per patient. Patient states that she did not notify her GI or her PMD. States for the past 5 days she has not been able to eat or drink as she is unable to swallow due to the esophageal cancer. Otherwise reports no fevers, chills, abdominal pain, nausea, vomiting, has no additional complaints. PMD Becky Cleveland <Ina Christopher PA-C - Last Filed: 02/10/18 01:11> - General Chief Complaint: GI Problem Time Seen by Provider: 02/09/18 22:35 Past Medical History - Infectious Disease Hx of Infectious Diseases: None - Tetanus Immunization Tetanus Immunization: Unknown - Reproductive Menopause: Yes - Cardiac Hx Cardiac Disorders: No - Pulmonary Hx Respiratory Disorders: No - Neurological Hx Neurological Disorder: No - HEENT Hx HEENT Disorder: Yes (TUNNEL VISION) Other/Comment: dysphagia - Renal Hx Renal Disorder: No - Endocrine/Metabolic Hx Endocrine Disorders: No - Hematological/Oncological Hx Blood Transfusions: Yes Hx Blood Transfusion Reaction: No Hx Cancer: Yes (laryngeal ca with radiation) - Integumentary Hx Dermatological Disorder: Yes - Musculoskeletal/Rheumatological Hx Rheumatoid Arthritis: Yes - Gastrointestinal Hx Gastrointestinal Disorders: Yes Other/Comment: Jtube - NPO - Genitourinary/Gynecological Hx Genitourinary Disorders: No - Psychiatric Hx Emotional Abuse: No Hx Physical Abuse: No Hx Substance Use: No - Surgical History Other/Comment: + jtube - Anesthesia Hx Anesthesia: Yes Hx Anesthesia Reactions: No Hx Malignant Hyperthermia: No - Suicidal Assessment Feels Threatened In Home Enviroment: No <Ina Christopher PA-C - Last Filed: 02/10/18 01:11> Family/Social History Family/Social History: No Known Family HX Smoking Status: Never Smoked Hx Alcohol Use: Yes (DRINKS 6 BEERS DAILY. LAST DRANK 2-3 SHOTS LAST NIGHT 10-21-17) Amount per day: 6 Hx Substance Use: No Hx Substance Use Treatment: No <Ina Christopher PA-C - Last Filed: 02/10/18 01:11> Allergies/Home Meds <New Mathur - Last Filed: 02/09/18 23:59> <Ina Christopher PA-C - Last Filed: 02/10/18 01:11> Allergies/Adverse Reactions: Allergies No Known Allergies Allergy (Verified 11/01/17 21:37) Home Medications: Home Meds Medication Instructions Recorded Confirmed Radiap[facility] TOP DAILY 12/25/17 Review of Systems - Review of Systems Constitutional: absent: Fatigue, Fevers Respiratory: absent: SOB, Cough Cardiovascular: absent: Chest Pain, Palpitations Gastrointestinal: absent: Abdominal Pain, Diarrhea, Vomiting Genitourinary Female: absent: Dysuria, Frequency Musculoskeletal: absent: Arthralgias, Back Pain Skin: absent: Rash, Pruritis, Skin Lesions <Ina Christopher PA-C - Last Filed: 02/10/18 01:11> Physical Exam Vital Signs Temp Pulse Resp BP Pulse Ox 02/09/18 22:54 98.3 F 116 H 19 109/81 98 <New Mathur - Last Filed: 02/09/18 23:59> Vital Signs Temp Pulse Resp BP Pulse Ox 02/09/18 22:54 98.3 F 116 H 19 109/81 98 Temperature: Afebrile Blood Pressure: Normal Pulse: Tachycardic Respiratory Rate: Normal Appearance: Positive for: Well-Appearing, Non-Toxic, Comfortable Pain Distress: None Mental Status: Positive for: Alert and Oriented X 3 - Systems Exam Head: Present: Atraumatic, Normocephalic Pupils: Present: PERRL Extroacular Muscles: Present: EOMI Conjunctiva: Present: Normal Mouth: Present: Dry Neck: Present: Normal Range of Motion Respiratory/Chest: Present: Clear to Auscultation, Good Air Exchange. No: Respiratory Distress, Accessory Muscle Use Cardiovascular: Present: Regular Rate and Rhythm, Normal S1, S2. No: Murmurs Abdomen: Present: Other (+healing peg tube site to the L mid abdomen). No: Tenderness, Distention, Peritoneal Signs Back: Present: Normal Inspection Upper Extremity: Present: Normal Inspection. No: Cyanosis, Edema Lower Extremity: Present: Normal Inspection. No: Edema Neurological: Present: GCS=15, CN II-XII Intact, Speech Normal, Motor Func Grossly Intact, Normal Sensory Function Skin: Present: Warm, Dry, Normal Color. No: Rashes Psychiatric: Present: Alert, Oriented x 3, Normal Insight, Normal Concentration <Ina Christopher PA-C - Last Filed: 02/10/18 01:11> Medical Decision Making - RAD Interpretation Radiology Orders: 02/09/18 23:48 CHEST PORTABLE [RAD] Stat - Medication Orders Current Medication Orders: Sodium Chloride (Sodium Chloride 0.9%) 1,000 mls @ 1,000 mls/hr IV .Q1H STA Stop: 02/10/18 00:26 Last Admin: 02/09/18 23:58 Dose: 1,000 mls/hr eMAR Start Stop Document 02/09/18 23:58 AD (Rec: 02/09/18 23:58 AD [id number]) Intravenous Solution Start Date 02/09/18 Start Time 23:58 <New Mathur - Last Filed: 02/09/18 23:59> ED Course and Treatment: 02/09/18 23:26 Plan : - Labs - IVF - Consult Dr. Cleveland Patient notified that she will likely need to be admitted as the ostomy site is likely closed at this time, she is agreeable to this plan. Case d/w Dr. Best, agrees with plan to admit the patient under the hospitalist service, with request that if GI is needed for consult to use Dr. Herrera and if IR is needed to call Dr. Jessika Lagos. Case d/w medical staff assistant and with Dr. Parish, agree with plan to admit under the hospitalist service. CXR : NAD. EKG : NSR at 100 bpm, no acute ST changes. Labs : plt 41 (last plt 01/13/18 was 77, pt reports a h/o thrombocytopenia), k 3.2, co2 13. KCl IV ordered. <Ina Christopher PA-C - Last Filed: 02/10/18 01:11> - PA / DENTAL SERVICE CHIEF / Resident Statement RONALD has reviewed & agrees with the documentation as recorded. RONALD has examined the patient and agrees with the treatment plan. <New Mathur - Last Filed: 02/09/18 23:59> - PA / DENTAL SERVICE CHIEF / Resident Statement RONALD has reviewed & agrees with the documentation as recorded. <Ina Christopher PA-C - Last Filed: 02/10/18 01:11> Disposition/Present on Arrival <New Mathur - Last Filed: 02/09/18 23:59> - Present on Arrival Any Indicators Present on Arrival: No History of DVT/PE: No History of Uncontrolled Diabetes: No Urinary Catheter: No History of Decub. Ulcer: No History Surgical Site Infection Following: None - Disposition Have Diagnosis and Disposition been Completed?: Yes Disposition Time: 23:45 Patient Plan: Admission <Ina Christopher PA-C - Last Filed: 02/10/18 01:11> - Disposition Diagnosis: Dislodged jejunostomy tube Disposition: HOSPITALIZED Patient Problems: Current Active Problems Problem Status Onset Dislodged jejunostomy tube Acute Condition: FAIR
[2018-02-09] MEDS ORDERED: Sodium Chloride 0.9% 1,000 ML IV STA (23:27)
[2018-02-10 00:10] LABS: BASO # 0.01 K/mm3 (0.0-2.0); BASO % 0.1 % (0.0-3.0); GRAN # 6.81 (1.4-6.5); GRAN % 95.4 % (50.0-68.0); HEMOGLOBIN 12.7 g/dL (12.0-16.0); LYMPH # 0.2 (1.2-3.4); LYMPH % 3.1 % (22.0-35.0); MEAN CORPUSCULAR HEMOGLOBIN 31.4 pg (25.0-35.0); MEAN PLATELET VOLUME 11.1 fl (7.0-11.0); MONO # 0.1 (0.1-0.6); MONO % 1.4 % (1.0-6.0); RBC 4.04 10^6/uL (3.5-6.1); RED CELL DISTRIBUTION WIDTH 13.1 % (11.5-14.5); WHITE BLOOD COUNT 7.1 10^3/uL (4.5-11.0)
[2018-02-10 00:16] LABS: INR 1.09; PARTIAL THROMBOPLASTIN TIME 31.8 Seconds (25.1-36.5); PROTHROMBIN TIME 12.4 SECONDS (9.4-12.5)
[2018-02-10 00:18] LABS: MEAN CELL VOLUME 92.6 fl (80.0-105.0); PLATELET COUNT 41 10^3/uL (120.0-450.0)
[2018-02-10 00:55] LABS: ALB/GLOB RATIO 1.2 (1.1-1.8); ALBUMIN 3.2 g/dL (3.0-4.8); ALT/SGPT 61 U/L (7-56); AST/SGOT 123 U/L (14-36); BLOOD UREA NITROGEN 5 mg/dL (7-21); GFR NON-AFRICAN AMERICAN > 60; LIPASE 54 U/L (23-300)
[2018-02-10 01:06] LABS: BAND 6 % (0-2); BASOPHIL 1 % (0.0-1.0); LYMPHOCYTE 2 % (22.0-35.0); MONOCYTE 1 % (1.0-6.0); NEUTROPHIL 90 % (50.0-70.0); PLATELET ESTIMATE LOW (NORMAL)
[2018-02-10] MEDS ORDERED: Potassium Chloride 20 mEq/15 ml LIQ UD PO STA (01:09)
[2018-02-10] MEDS ORDERED: Thiamine 100 mg/ml Inj IM STA (01:11)
[2018-02-10] MEDS ORDERED: Multivitamin (MVI) 10 ML in Dextrose 5%/0.45% NS 1,000 ML IV ONE (01:11)
[2018-02-10] MEDS ORDERED: Sodium Chloride 0.9% 1,000 ML IV STA ×2 (01:15→02:05)
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
[2018-02-10 08:05] LABS: T3 0.59 ng/mL (0.97-1.69)
--- NOTE | 2018-02-10 09:09 | CARD ---
APPROVED REPORT Date of service: 02/10/2018 EKG Measurement Heart [id number] <Conclusion> Normal sinus rhythm Nonspecific ST abnormality Tall Peaked P in 2,3,AVF Suggestive of Ch. Lung Disease. Low Voltage.
--- NOTE | 2018-02-10 09:16 | RAD ---
Date of service: 02/09/2018 HISTORY: possible OR COMPARISON: 01/08/2018 FINDINGS: LUNGS: No active pulmonary disease. PLEURA: No significant pleural effusion identified, no pneumothorax apparent. CARDIOVASCULAR: No aortic atherosclerotic calcification present. Normal cardiac size. No pulmonary vascular congestion. OSSEOUS STRUCTURES: No significant abnormalities. VISUALIZED UPPER ABDOMEN: Normal. OTHER FINDINGS: Right-sided Port-A-Cath IMPRESSION: No active disease.
[2018-02-10] MEDS: Silver Sulfadiazine 1% Cream (25 gm) TP SCH ×2 (09:18→17:41)
--- NOTE | 2018-02-10 09:52 | CP.PCM.CON ---
<Don Irizarry - Last Filed: 02/10/18 18:20> History of Present Illness - History of Present Illness History of Present Illness: Don Irizarry DO, PGY1. GI consult note for Dr Javier Marcos: feeding tube dislodgement 52 y/o female with PMH of squamous cell carcinoma of the oropharynx on chemo/radiation therapy stage T4N0M0 s/p J tube placement (11/2017), decompensated alcoholic cirrhosis, malnutrition, alcohol abuse, thrombocytopenia, anemia of chronic disease, depression, and anxiety presents to ED with J tube dislodgment 5 days ago with failure to re-insert. She did not come to the hospital since then because of feeling depressed. Denied any oral intake for 5 days. Now feeling weak, fatigue nad also have left sided neck pain with sore throat She denied recent URI symptoms .Patient still on chemo/radiation therapy. She reports doing well till she she the tube dislodged. She denies nausea, vomiting, hematemesis, diarrhea, constipation, melena, or hematochezia. ROS reviewed as above PMH: as above PSH: ankle surgery, G tube placement in 10/2017 FMHx: Mother from [place]. Father from throat cancer SHx: Patient denies tobacco use. 6-10 beers for 30 years. cocaine for 4-5 years Allergies: NKDA PMD: Dr. Pena Oncology: Dr. Cleveland Endo: EGD 10/2017 showed hypopharynx lesion confirmed to be moderately-poorly differentiated squamous cell carcinoma, T4N0M0 Past Patient History - Infectious Disease Hx of Infectious Diseases: None - Tetanus Immunizations Tetanus Immunization: Unknown - Past Medical History & Family History Past Medical History?: Yes - Past Social History Smoking Status: Never Smoked - CARDIAC Hx Cardiac Disorders: No - PULMONARY Hx Respiratory Disorders: No - NEUROLOGICAL Hx Neurological Disorder: No - HEENT Other/Comment: dysphagia - RENAL Hx Chronic Kidney Disease: No - ENDOCRINE/METABOLIC Hx Endocrine Disorders: No - HEMATOLOGICAL/ONCOLOGICAL Hx Cancer: Yes (laryngeal ca with radiation/chemo) - INTEGUMENTARY Hx Dermatological Problems: Yes - MUSCULOSKELETAL/RHEUMATOLOGICAL Hx Falls: No - GASTROINTESTINAL Hx Gastrointestinal Disorders: Yes - GENITOURINARY/GYNECOLOGICAL Hx Genitourinary Disorders: No - PSYCHIATRIC Hx Anxiety: Yes Hx Depression: Yes - SURGICAL HISTORY Other/Comment: + g tube - ANESTHESIA Hx Anesthesia: Yes Hx Anesthesia Reactions: No Hx Malignant Hyperthermia: No Meds Allergies/Adverse Reactions: Allergies Allergy/AdvReac Type Severity Reaction Status Date / Time No Known Allergies Allergy Verified 11/01/17 21:37 - Medications Medications: Current Medications Folic Acid (Folic Acid) 1 mg IVP DAILY [facility] Multivitamins/Vitamin C 10 ml/ (Dextrose/Sodium Chloride) 1,010 mls @ 100 mls/hr IV ONCE ONE Stop: 02/10/18 11:16 Last Admin: 02/10/18 02:02 Dose: 100 mls/hr Pantoprazole Sodium (Protonix Inj) 40 mg IVP DAILY [facility] Last Admin: 02/10/18 09:12 Dose: 40 mg Silver Sulfadiazine (Silvadene 1% 25 Gm) 25 gm TP BID [facility] Physical Exam - Constitutional Appears: Cachectic, Chronically Ill - Head Exam Head Exam: ATRAUMATIC, NORMAL INSPECTION, NORMOCEPHALIC - Eye Exam Eye Exam: EOMI, Normal appearance, PERRL Pupil Exam: NORMAL ACCOMODATION, PERRL - ENT Exam ENT Exam: Mucous Membranes Dry Additional comments: pharyngeal erythema, no exudate - Neck Exam Neck exam: Negative for: Lymphadenopathy - Expanded Neck Exam Expanded Expanded Neck Exam: absent: Midline Deformity, Tenderness, Tracheal Deviation - Respiratory Exam Respiratory Exam: Clear to Auscultation Bilateral. absent: Rhonchi, Wheezes, Stridor Additional comments: chemo port on right chest wall. clean, no signs of infection - Cardiovascular Exam Cardiovascular Exam: REGULAR RHYTHM, +S1, +S2. absent: Gallop, Rubs - GI/Abdominal Exam GI & Abdominal Exam: Diminished Bowel Sounds, Normal Bowel Sounds, Soft. absent: Guarding, Mass, Rebound, Tenderness Additional comments: dressing over J tube site. no tube present. clean wound, no signs of infection - Extremities Exam Extremities exam: Positive for: normal capillary refill, normal inspection, pedal pulses present - Back Exam Back exam: NORMAL INSPECTION - Neurological Exam Neurological exam: Alert, CN II-XII Intact, Oriented x3 - Psychiatric Exam Psychiatric exam: Anxious, Depressed - Skin Skin Exam: Dry, Intact, Normal Color, Warm Results - Vital Signs Recent Vital Signs: Last Vital Signs Temp 98 F 02/10/18 06:00 Pulse 90 02/10/18 06:00 Resp 18 02/10/18 06:00 BP 99/66 L 02/10/18 06:00 Pulse Ox 96 02/10/18 06:00 - Labs Result Diagrams: 02/09/18 23:45 02/09/18 23:45 Labs: Laboratory Results - last 24 hr 02/09/18 02/09/18 02/09/18 23:45 23:45 23:45 WBC 7.1 D RBC 4.04 Hgb 12.7 Hct 37.4 MCV 92.6 D MCH 31.4 MCHC 34.0 RDW 13.1 Plt Count 41 L* MPV 11.1 H Gran % 95.4 H Lymph % (Auto) 3.1 L [place] % (Auto) 1.4 Eos % (Auto) 0.0 L Baso % (Auto) 0.1 Gran # 6.81 H Lymph # (Auto) 0.2 L [place] # (Auto) 0.1 Eos # (Auto) 0.0 Baso # (Auto) 0.01 Neutrophils % (Manual) 90 H Band Neutrophils % 6 H Lymphocytes % (Manual) 2 L Monocytes % (Manual) 1 Basophils % (Manual) 1 Platelet Evaluation Low PT 12.4 INR 1.09 APTT 31.8 Sodium 133 Potassium 3.2 L Chloride 99 Carbon Dioxide 13 L Anion Gap 24 H BUN 5 L Creatinine 0.5 L Est GFR ( Amer) > 60 Est GFR (Non-Af Amer) > 60 Random Glucose 89 Calcium 8.0 L Magnesium Total Bilirubin 1.3 AST 123 H D ALT 61 H Alkaline Phosphatase 85 Total Protein 5.8 Albumin 3.2 Globulin 2.6 Albumin/Globulin Ratio 1.2 Lipase 54 Thyroxine (T4) Total T3 TSH 3rd Generation Blood Type Antibody Screen BBK History Checked 02/09/18 02/09/18 02/10/18 23:45 23:47 06:50 WBC RBC Hgb Hct MCV MCH MCHC RDW Plt Count MPV Gran % Lymph % (Auto) [place] % (Auto) Eos % (Auto) Baso % (Auto) Gran # Lymph # (Auto) [place] # (Auto) Eos # (Auto) Baso # (Auto) Neutrophils % (Manual) Band Neutrophils % Lymphocytes % (Manual) Monocytes % (Manual) Basophils % (Manual) Platelet Evaluation PT INR APTT Sodium Potassium Chloride Carbon Dioxide Anion Gap BUN Creatinine Est GFR ( Amer) Est GFR (Non-Af Amer) Random Glucose Calcium Magnesium 1.6 L Total Bilirubin AST ALT Alkaline Phosphatase Total Protein Albumin Globulin Albumin/Globulin Ratio Lipase Thyroxine (T4) 7.0 Total T3 0.59 L TSH 3rd Generation 0.67 Blood Type A NEGATIVE Antibody Screen Negative BBK History Checked Patient has bt Assessment & Plan - Assessment and Plan (Free Text) Assessment: 52 year old female with PMH of 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 squamous cell carcinoma of the oropharynx on radiation and chemotherapy jejunostomy tube dislodged with failure to re-insert thrombocytopenia anemia of chronic disease malnutrition h/o alcohol abuse liver cirrhosis Plan: -NPO -continue PPI -continue hydration -continue folic acid, thiamine, MVI supplement -AST/ALT 123/61 -lipase wnl -H/H stable -IR consulted for J tube insertion Case reviewed and plan discussed with attending Dr Javier Irizarry, <Olman Herrera V - Last Filed: 02/10/18 23:29> Meds - Medications Medications: Current Medications Folic Acid (Folic Acid) 1 mg IVP DAILY [facility] Last Admin: 02/10/18 14:19 Dose: 1 mg Dextrose/Sodium Chloride (Dextrose 5%/0.45% Ns 1000 Ml) 1,000 mls @ 75 mls/hr IV .[id number] [facility] Last Admin: 02/10/18 19:52 Dose: 75 mls/hr Morphine Sulfate (Morphine) 1 mg SC Q4H PRN PRN Reason: moderate pain 3-7 Last Admin: 02/10/18 17:25 Dose: 1 mg Nystatin (Nystatin Oral Susp) 5 ml PO QID [facility] Last Admin: 02/10/18 19:53 Dose: 5 ml Pantoprazole Sodium (Protonix Inj) 40 mg IVP DAILY [facility] Last Admin: 02/10/18 09:12 Dose: 40 mg Silver Sulfadiazine (Silvadene 1% 25 Gm) 25 gm TP BID [facility] Last Admin: 02/10/18 17:41 Dose: 25 gm Results - Vital Signs Recent Vital Signs: Last Vital Signs Temp 97.9 F 02/10/18 16:00 Pulse 84 02/10/18 16:00 Resp 18 02/10/18 16:00 BP 98/65 L 02/10/18 16:00 Pulse Ox 100 02/10/18 16:00 - Labs Result Diagrams: 02/09/18 23:45 02/09/18 23:45 Labs: Laboratory Results - last 24 hr 02/09/18 02/09/18 02/09/18 23:45 23:45 23:45 WBC 7.1 D RBC 4.04 Hgb 12.7 Hct 37.4 MCV 92.6 D MCH 31.4 MCHC 34.0 RDW 13.1 Plt Count 41 L* MPV 11.1 H Gran % 95.4 H Lymph % (Auto) 3.1 L [place] % (Auto) 1.4 Eos % (Auto) 0.0 L Baso % (Auto) 0.1 Gran # 6.81 H Lymph # (Auto) 0.2 L [place] # (Auto) 0.1 Eos # (Auto) 0.0 Baso # (Auto) 0.01 Neutrophils % (Manual) 90 H Band Neutrophils % 6 H Lymphocytes % (Manual) 2 L Monocytes % (Manual) 1 Basophils % (Manual) 1 Platelet Evaluation Low PT 12.4 INR 1.09 APTT 31.8 Sodium 133 Potassium 3.2 L Chloride 99 Carbon Dioxide 13 L Anion Gap 24 H BUN 5 L Creatinine 0.5 L Est GFR ( Amer) > 60 Est GFR (Non-Af Amer) > 60 Random Glucose 89 Calcium 8.0 L Magnesium Total Bilirubin 1.3 AST 123 H D ALT 61 H Alkaline Phosphatase 85 Total Protein 5.8 Albumin 3.2 Globulin 2.6 Albumin/Globulin Ratio 1.2 Lipase 54 25-OH Vitamin D Total Thyroxine (T4) Total T3 TSH 3rd Generation Blood Type Antibody Screen BBK History Checked 02/09/18 02/09/18 02/09/18 23:45 23:45 23:47 WBC RBC Hgb Hct MCV MCH MCHC RDW Plt Count MPV Gran % Lymph % (Auto) [place] % (Auto) Eos % (Auto) Baso % (Auto) Gran # Lymph # (Auto) [place] # (Auto) Eos # (Auto) Baso # (Auto) Neutrophils % (Manual) Band Neutrophils % Lymphocytes % (Manual) Monocytes % (Manual) Basophils % (Manual) Platelet Evaluation PT INR APTT Sodium Potassium Chloride Carbon Dioxide Anion Gap BUN Creatinine Est GFR ( Amer) Est GFR (Non-Af Amer) Random Glucose Calcium Magnesium 1.6 L Total Bilirubin AST ALT Alkaline Phosphatase Total Protein Albumin Globulin Albumin/Globulin Ratio Lipase 25-OH Vitamin D Total < 12.8 L Thyroxine (T4) Total T3 TSH 3rd Generation Blood Type A NEGATIVE Antibody Screen Negative BBK History Checked Patient has bt 02/10/18 06:50 WBC RBC Hgb Hct MCV MCH MCHC RDW Plt Count MPV Gran % Lymph % (Auto) [place] % (Auto) Eos % (Auto) Baso % (Auto) Gran # Lymph # (Auto) [place] # (Auto) Eos # (Auto) Baso # (Auto) Neutrophils % (Manual) Band Neutrophils % Lymphocytes % (Manual) Monocytes % (Manual) Basophils % (Manual) Platelet Evaluation PT INR APTT Sodium Potassium Chloride Carbon Dioxide Anion Gap BUN Creatinine Est GFR ( Amer) Est GFR (Non-Af Amer) Random Glucose Calcium Magnesium Total Bilirubin AST ALT Alkaline Phosphatase Total Protein Albumin Globulin Albumin/Globulin Ratio Lipase 25-OH Vitamin D Total Thyroxine (T4) 7.0 Total T3 0.59 L TSH 3rd Generation 0.67 Blood Type Antibody Screen BBK History Checked Attending/Attestation - Attestation I have personally seen and examined this patient.: Yes I have fully participated in the care of the patient.: Yes I have reviewed all pertinent clinical information: Yes Notes (Text): This is an addendum to consult report dictated by the GI Resident.The patient was seen and examined earlier. Medical records, lab studies, imagings were reviewed. Last 24 hours events reviewed. Agreed with the above treatment plan as outlined in GI Fellow 's notes with the addition of the following 02/10/18 23:25
[2018-02-10] MEDS: Morphine 2 mg/ml ISec SC PRN ×2 (10:40→17:25)
[2018-02-10] MEDS ORDERED: Lidocaine 2% Inj (20ml) ONE (14:20)
[2018-02-10] MEDS ORDERED: Iodixanol 320 MG/ML 100 ML BOTTLE IV ONE (14:20)
[2018-02-10] MEDS ORDERED: Midazolam 2 MG/2 ML VIAL ONE ×2 (14:56→15:05)
--- NOTE | 2018-02-10 17:23 | CP.PCM.PN ---
Subjective - Date & Time of Evaluation Date of Evaluation: 02/10/18 Time of Evaluation: 08:55 - Subjective Subjective: NAD, no chest pain, no SOB Objective - Vital Signs/Intake and Output Vital Signs (last 24 hours): Temp Pulse Resp BP Pulse Ox 98 F 82 16 99/62 L 99 02/10/18 15:38 02/10/18 15:38 02/10/18 15:38 02/10/18 15:38 02/10/18 15:38 - Medications Medications: Current Medications Folic Acid (Folic Acid) 1 mg IVP DAILY [facility] Last Admin: 02/10/18 14:19 Dose: 1 mg Morphine Sulfate (Morphine) 1 mg SC Q4H PRN PRN Reason: moderate pain 3-7 Last Admin: 02/10/18 10:40 Dose: 1 mg Pantoprazole Sodium (Protonix Inj) 40 mg IVP DAILY [facility] Last Admin: 02/10/18 09:12 Dose: 40 mg Silver Sulfadiazine (Silvadene 1% 25 Gm) 25 gm TP BID [facility] Last Admin: 02/10/18 09:18 Dose: 25 gm - Labs Labs: 02/09/18 23:45 02/09/18 23:45 PT 12.4 SECONDS (9.4-12.5) 02/09/18 23:45 INR 1.09 02/09/18 23:45 APTT 31.8 Seconds (25.1-36.5) 02/09/18 23:45 - Respiratory Exam Respiratory Exam: Clear to Ausculation Bilateral, NORMAL BREATHING PATTERN - Cardiovascular Exam Cardiovascular Exam: REGULAR RHYTHM - GI/Abdominal Exam GI & Abdominal Exam: Soft, Normal Bowel Sounds - Neurological Exam Neurological Exam: Alert, Awake Assessment and Plan (1) Dislodged jejunostomy tube Status: Acute (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
[2018-02-10] MEDS ORDERED: Dextrose 5%/0.45% NS 1,000 ML IV SCH (18:00)
[2018-02-10] MEDS: Nystatin 100,000 Units/ml Oral Susp 5 ml UD PO SCH ×2 (19:53→21:00)
--- NOTE | 2018-02-10 20:00 | VASCULAR ---
Date of service: 02/10/2018 PROCEDURE: Degen ostomy tube injection HISTORY: Displaced jejunostomy tube. Attempt to reinsert COMPARISON: TECHNIQUE: The sinus tract was probed with a 5 [place] dilator. A defect in the fascia could not be detected. Contrast was injected via the dilator. No sinus tract into the small bowel was opacified FINDINGS: IMPRESSION: The jejunostomy sinus tract and closed. The jejunostomy tube could not be replaced
[2018-02-11] MEDS: Morphine 2 mg/ml ISec SC PRN ×2 (02:13→06:32)
--- NOTE | 2018-02-11 07:14 | CP.PCM.PN ---
Subjective - Date & Time of Evaluation Date of Evaluation: 02/11/18 Time of Evaluation: 07:12 - Subjective Subjective: Resident Progress Note for Hospitalist Service Objective - Vital Signs/Intake and Output Vital Signs (last 24 hours): Temp Pulse Resp BP Pulse Ox 97.9 F 84 18 98/65 L 100 02/10/18 16:00 02/10/18 16:00 02/10/18 16:00 02/10/18 16:00 02/10/18 16:00 Intake and Output: 02/11/18 02/11/18 06:59 18:59 Intake Total 900 Balance 900 - Medications Medications: Current Medications Folic Acid (Folic Acid) 1 mg IVP DAILY [facility] Last Admin: 02/10/18 14:19 Dose: 1 mg Dextrose/Sodium Chloride (Dextrose 5%/0.45% Ns 1000 Ml) 1,000 mls @ 75 mls/hr IV .[id number] [facility] Last Admin: 02/10/18 19:52 Dose: 75 mls/hr Morphine Sulfate (Morphine) 1 mg SC Q4H PRN PRN Reason: moderate pain 3-7 Last Admin: 02/11/18 06:32 Dose: 1 mg Nystatin (Nystatin Oral Susp) 5 ml PO QID [facility] Last Admin: 02/10/18 21:00 Dose: Not Given Pantoprazole Sodium (Protonix Inj) 40 mg IVP DAILY [facility] Last Admin: 02/10/18 09:12 Dose: 40 mg Silver Sulfadiazine (Silvadene 1% 25 Gm) 25 gm TP BID [facility] Last Admin: 02/10/18 17:41 Dose: 25 gm - Labs Labs: 02/09/18 23:45 02/09/18 23:45 PT 12.4 SECONDS (9.4-12.5) 02/09/18 23:45 INR 1.09 02/09/18 23:45 APTT 31.8 Seconds (25.1-36.5) 02/09/18 23:45 - Additional Findings Additional findings: - Constitutional Appears: Well, Non-toxic, No Acute Distress - Head Exam Head Exam: ATRAUMATIC, NORMAL INSPECTION, NORMOCEPHALIC - Eye Exam Eye Exam: EOMI, PERRL - Neck Exam Additional comments: supple, no adenopathy - Respiratory Exam Respiratory Exam: Clear to Auscultation Bilateral Additional comments: no stridor currently - Cardiovascular Exam Cardiovascular Exam: Tachycardia, REGULAR RHYTHM - GI/Abdominal Exam GI & Abdominal Exam: Hypoactive Bowel Sounds, Soft. absent: Tenderness Additional comments: area of G tube has exposed subcutaneous tissue visualized. 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 Plan: Dislodged G tube -Dr. Herrera and Dr. Lagos consulted for recommendations and reinsertion of G tube. Follow recommendations -For possible procedure, CBC, CMP, PT/PTT, EKG, and CXR ordered -CMP showed hypokalemia and hypocalcemia. Electrolytes repleted. -Magnesium level ordered for further evaluation of electrolyte disturbances Head and Neck Cancer -Patient has known diagnosis since October 2017 -Patient has received multiple round of radiation and chemotherapy -Area of radiation has irritated skin, so silver sulfadiazine continued from home -Dr. Cleveland, hematology/oncology, consulted for recommendations. History of anxiety -Ativan IVP History of thrombocytopenia -Platelets: 41 -Consider transfusion if symptomatic or platelets count drops under 20 History of hypotension -Last blood pressure was 109/81 -Consider midodrine if patient's blood pressure drops below 90/60 -Continue with NS at 100cc/hr History of alcohol abuse and malnutrition -Last drink was October 2017 -Thiamine, multivitamin IV ordered -Continue home folic acid History of anemia of chronic disease -Hgb within normal limits -Continue to monitor GI prophylaxis: protonix 40 mg daily DVT prophylaxis: SCD. lovenox held for possible procedure
[2018-02-11 07:15] LABS: BASO # 0.01 K/mm3 (0.0-2.0); BASO % 0.3 % (0.0-3.0); EOS % 0.5 % (1.5-5.0); GRAN % 87.1 % (50.0-68.0); LYMPH # 0.2 (1.2-3.4); LYMPH % 5.9 % (22.0-35.0); MEAN CELL VOLUME 90.1 fl (80.0-105.0); MEAN CORPUSCULAR HGB CONC 34.4 g/dl (31.0-37.0); MEAN PLATELET VOLUME 10.5 fl (7.0-11.0); MONO # 0.2 (0.1-0.6); MONO % 6.2 % (1.0-6.0); RBC 3.23 10^6/uL (3.5-6.1); RED CELL DISTRIBUTION WIDTH 13.1 % (11.5-14.5); WHITE BLOOD COUNT 3.9 10^3/uL (4.5-11.0)
[2018-02-11 07:32] LABS: PLATELET COUNT 22 10^3/uL (120.0-450.0)
[2018-02-11 07:39] LABS: ALBUMIN 2.4 g/dL (3.0-4.8); ALT/SGPT 52 U/L (7-56); AST/SGOT 64 U/L (14-36); BLOOD UREA NITROGEN < 2 mg/dL (7-21); CALCIUM 7.5 mg/dL (8.4-10.5); GFR NON-AFRICAN AMERICAN > 60
[2018-02-11] MEDS ORDERED: Magnesium Sulfate 2 gm/50 ml 2 GM/50 ML BAG IVPB ONE (07:49)
--- NOTE | 2018-02-11 09:04 | CP.PCM.PN ---
Subjective - Date & Time of Evaluation Date of Evaluation: 02/11/18 Time of Evaluation: 07:50 - Subjective Subjective: Don Irizarry DO, PGY1. GI progress note for Dr Herrera Patient seen and examined at bedside. No acute events overnight. Feels neck discomfort and mild abdominal pain at the site of dislodged J tube. Denied vomiting, diarrhea, fever, chills, blood per rectum Objective - Vital Signs/Intake and Output Vital Signs (last 24 hours): Temp Pulse Resp BP Pulse Ox 98.3 F 88 18 98/55 L 99 02/11/18 06:00 02/11/18 06:00 02/11/18 06:00 02/11/18 06:00 02/11/18 06:00 Intake and Output: 02/11/18 02/11/18 06:59 18:59 Intake Total 900 Balance 900 - Medications Medications: Current Medications Folic Acid (Folic Acid) 1 mg IVP DAILY [facility] Last Admin: 02/10/18 14:19 Dose: 1 mg Dextrose/Sodium Chloride (Dextrose 5%/0.45% Ns 1000 Ml) 1,000 mls @ 75 mls/hr IV .[id number] [facility] Last Admin: 02/10/18 19:52 Dose: 75 mls/hr Potassium Chloride (Potassium Chloride 20 Meq/100 Ml) 20 meq in 100 mls @ 50 mls/hr IVPB Q2H [facility] Stop: 02/11/18 15:59 Last Admin: 02/11/18 08:40 Dose: 50 mls/hr Morphine Sulfate (Morphine) 1 mg SC Q4H PRN PRN Reason: moderate pain 3-7 Last Admin: 02/11/18 06:32 Dose: 1 mg Nystatin (Nystatin Oral Susp) 5 ml PO QID [facility] Last Admin: 02/10/18 21:00 Dose: Not Given Pantoprazole Sodium (Protonix Inj) 40 mg IVP DAILY [facility] Last Admin: 02/10/18 09:12 Dose: 40 mg Silver Sulfadiazine (Silvadene 1% 25 Gm) 25 gm TP BID [facility] Last Admin: 02/10/18 17:41 Dose: 25 gm - Labs Labs: 02/11/18 06:45 02/11/18 06:45 PT 12.4 SECONDS (9.4-12.5) 02/09/18 23:45 INR 1.09 02/09/18 23:45 APTT 31.8 Seconds (25.1-36.5) 02/09/18 23:45 - Constitutional Appears: No Acute Distress, Cachectic, Chronically Ill, Other (looks frail with severe muscle wasting) - Head Exam Head Exam: ATRAUMATIC, NORMAL INSPECTION, NORMOCEPHALIC - Eye Exam Eye Exam: EOMI, Normal appearance, PERRL Pupil Exam: NORMAL ACCOMODATION, PERRL - ENT Exam ENT Exam: Mucous Membranes Dry - Neck Exam Neck Exam: Full ROM, Normal Inspection. absent: Lymphadenopathy - Respiratory Exam Respiratory Exam: Clear to Ausculation Bilateral, NORMAL BREATHING PATTERN - Cardiovascular Exam Cardiovascular Exam: REGULAR RHYTHM, +S1, +S2. absent: Gallop, Rubs, Murmur - GI/Abdominal Exam GI & Abdominal Exam: Soft, Tenderness (site of dislodged J tube), Hypoactive Bowel Sounds. absent: Guarding, Rigid, Organomegaly, Pulsatile Mass, Rebound - Extremities Exam Extremities Exam: Full ROM, Normal Capillary Refill, Normal Inspection. 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 squamous cell carcinoma of the oropharynx on radiation and chemotherapy jejunostomy tube dislodged with failure to re-insert thrombocytopenia anemia of chronic disease malnutrition h/o alcohol abuse liver cirrhosis Plan: -NPO -continue PPI -continue hydration -consider TPN/PPN -continue folic acid, thiamine, MVI supplement -AST/ALT 123/61 -lipase wnl -H/H stable -IR failed J tube re-insertion.surgery is on board now -case to be discussed with Dr Weller Case reviewed and plan discussed with attending Dr Javier Irizarry,
[2018-02-11] MEDS: Morphine 2 mg/ml ISec IVP PRN ×3 (10:26→20:35)
[2018-02-11] MEDS: Silver Sulfadiazine 1% Cream (25 gm) TP SCH (10:28)
[2018-02-11] MEDS: Nystatin 100,000 Units/ml Oral Susp 5 ml UD PO SCH ×4 (12:01→21:58)
--- NOTE | 2018-02-11 13:02 | CP.PCM.PN ---
Subjective - Date & Time of Evaluation Date of Evaluation: 02/11/18 Time of Evaluation: 09:40 - Subjective Subjective: c/o some nausea from liquid morphine, otherwise NAD Objective - Vital Signs/Intake and Output Vital Signs (last 24 hours): Temp Pulse Resp BP Pulse Ox 98.3 F 88 18 98/55 L 99 02/11/18 06:00 02/11/18 06:00 02/11/18 06:00 02/11/18 06:00 02/11/18 06:00 Intake and Output: 02/11/18 02/11/18 06:59 18:59 Intake Total 900 Balance 900 - Medications Medications: Current Medications Folic Acid (Folic Acid) 1 mg IVP DAILY [facility] Last Admin: 02/10/18 14:19 Dose: 1 mg Dextrose/Sodium Chloride (Dextrose 5%/0.45% Ns 1000 Ml) 1,000 mls @ 75 mls/hr IV .[id number] [facility] Last Admin: 02/10/18 19:52 Dose: 75 mls/hr Potassium Chloride (Potassium Chloride 20 Meq/100 Ml) 20 meq in 100 mls @ 50 mls/hr IVPB Q2H [facility] Stop: 02/11/18 15:59 Last Admin: 02/11/18 10:57 Dose: 50 mls/hr Morphine Sulfate (Morphine) 1 mg IVP Q4H PRN PRN Reason: moderate pain 3-7 Last Admin: 02/11/18 10:26 Dose: 1 mg Nystatin (Nystatin Oral Susp) 5 ml PO QID [facility] Last Admin: 02/11/18 12:01 Dose: Not Given Pantoprazole Sodium (Protonix Inj) 40 mg IVP DAILY [facility] Last Admin: 02/11/18 10:27 Dose: 40 mg Silver Sulfadiazine (Silvadene 1% 25 Gm) 25 gm TP BID [facility] Last Admin: 02/11/18 10:28 Dose: 25 gm - Labs Labs: 02/11/18 06:45 02/11/18 06:45 PT 12.4 SECONDS (9.4-12.5) 02/09/18 23:45 INR 1.09 02/09/18 23:45 APTT 31.8 Seconds (25.1-36.5) 02/09/18 23:45 - Constitutional Appears: Cachectic - Respiratory Exam Respiratory Exam: Clear to Ausculation Bilateral, NORMAL BREATHING PATTERN - Cardiovascular Exam Cardiovascular Exam: REGULAR RHYTHM - GI/Abdominal Exam GI & Abdominal Exam: Soft, Normal Bowel Sounds - Neurological Exam Neurological Exam: Alert, Awake Assessment and Plan (1) Dislodged jejunostomy tube Status: Acute (2) 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
--- NOTE | 2018-02-11 15:46 | CP.PCM.PCO ---
Physician Communication Note - Physician Communication Note Physician Communication Note: please replete all electrolytes, and will need platelet transfusion
--- NOTE | 2018-02-11 16:19 | CP.PCM.CON ---
History of Present Illness - History of Present Illness History of Present Illness: Surgery 52F w PMH of Oropharyngeal CA stage T4N0M0 squamous cell CA s/p Chemo radiation came with J tube dislodgement. Pt had 2 chemo and 26 radiation therapy. PT had J tube place surgically in october 2017 and had it replaced in Dec 2017 after it came out. This time it came out 7 days ago. Pt is NPO and feels week. Denies fever, nausea, vomiting, diarrhea, CP, SOB, syncopy. IR attempted to replace J tube yesterday but unsuccessful. Swallow eval is consulted to see if she can tolerate PO intake. Pt's platelet is [address] Payne is on board. Pt is consenting for surgery. PMH: sicchosis, malnutrition, EtOH abuse, thrombocytopenia. PSH: ankle surgery, G tube placement in 10/2017 FMHx: Mother from [place]. Father from throat cancer SHx: Patient denies tobacco use. 6-10 beers for 30 years. cocaine for 4-5 years Allergies: NKDA PMD: Dr. Pena Oncology: Dr. Cleveland Endo: EGD 10/2017 showed hypopharynx lesion confirmed to be moderately-poorly differentiated squamous cell carcinoma, T4N0M0 Review of Systems - Review of Systems Review of Systems: See HPI Past Patient History - Infectious Disease Hx of Infectious Diseases: None - Tetanus Immunizations Tetanus Immunization: Unknown - Past Medical History & Family History Past Medical History?: Yes - Past Social History Smoking Status: Never Smoked - CARDIAC Hx Cardiac Disorders: No - PULMONARY Hx Respiratory Disorders: No - NEUROLOGICAL Hx Neurological Disorder: No - HEENT Other/Comment: dysphagia - RENAL Hx Chronic Kidney Disease: No - ENDOCRINE/METABOLIC Hx Endocrine Disorders: No - HEMATOLOGICAL/ONCOLOGICAL Hx Cancer: Yes (laryngeal ca with radiation/chemo) - INTEGUMENTARY Hx Dermatological Problems: Yes - MUSCULOSKELETAL/RHEUMATOLOGICAL Hx Falls: No - GASTROINTESTINAL Hx Gastrointestinal Disorders: Yes - GENITOURINARY/GYNECOLOGICAL Hx Genitourinary Disorders: No - PSYCHIATRIC Hx Anxiety: Yes Hx Depression: Yes - SURGICAL HISTORY Other/Comment: + g tube - ANESTHESIA Hx Anesthesia: Yes Hx Anesthesia Reactions: No Hx Malignant Hyperthermia: No Meds Allergies/Adverse Reactions: Allergies Allergy/AdvReac Type Severity Reaction Status Date / Time No Known Allergies Allergy Verified 09/23/18 21:37 - Medications Medications: Current Medications Folic Acid (Folic Acid) 1 mg IVP DAILY [facility] Last Admin: 02/10/18 14:19 Dose: 1 mg Dextrose/Sodium Chloride (Dextrose 5%/0.45% Ns 1000 Ml) 1,000 mls @ 75 mls/hr IV .[id number] [facility] Last Admin: 02/10/18 19:52 Dose: 75 mls/hr Morphine Sulfate (Morphine) 1 mg IVP Q4H PRN PRN Reason: moderate pain 3-7 Last Admin: 02/11/18 16:09 Dose: 1 mg Nystatin (Nystatin Oral Susp) 5 ml PO QID [facility] Last Admin: 02/11/18 13:32 Dose: 5 ml Pantoprazole Sodium (Protonix Inj) 40 mg IVP DAILY [facility] Last Admin: 02/11/18 10:27 Dose: 40 mg Silver Sulfadiazine (Silvadene 1% 25 Gm) 25 gm TP BID [facility] Last Admin: 02/11/18 10:28 Dose: 25 gm Physical Exam - Constitutional Appears: Cachectic, Chronically Ill - Head Exam Head Exam: ATRAUMATIC, NORMAL INSPECTION, NORMOCEPHALIC - Eye Exam Eye Exam: EOMI, Normal appearance, PERRL Pupil Exam: NORMAL ACCOMODATION, PERRL - ENT Exam ENT Exam: Mucous Membranes Moist. absent: Normal Oropharynx - Neck Exam Additional comments: fibrotic, thicken, discolorated skin - Respiratory Exam Respiratory Exam: NORMAL BREATHING PATTERN - Cardiovascular Exam Cardiovascular Exam: REGULAR RHYTHM - GI/Abdominal Exam GI & Abdominal Exam: Soft. absent: Tenderness Additional comments: 1cm old mid abdominal incision closing - Extremities Exam Extremities exam: Positive for: full ROM, normal inspection - Back Exam Back exam: NORMAL INSPECTION - Neurological Exam Neurological exam: Alert, CN II-XII Intact, Normal Gait, Oriented x3, Reflexes Normal - Psychiatric Exam Psychiatric exam: Normal Affect, Normal Mood - Skin Skin Exam: Dry, Intact, Warm Results - Vital Signs Recent Vital Signs: Last Vital Signs Temp 98.4 F 02/11/18 14:00 Pulse 94 H 02/11/18 14:00 Resp 18 02/11/18 14:00 BP 100/66 02/11/18 14:00 Pulse Ox 98 02/11/18 14:00 - Labs Result Diagrams: 02/11/18 06:45 02/11/18 06:45 Labs: Laboratory Results - last 24 hr 02/09/18 02/11/18 02/11/18 23:45 06:45 06:45 WBC 3.9 L D RBC 3.23 L Hgb 10.0 L D Hct 29.1 L MCV 90.1 MCH 31.0 MCHC 34.4 RDW 13.1 Plt Count 22 L* MPV 10.5 Gran % 87.1 H Lymph % (Auto) 5.9 L Mckean % (Auto) 6.2 H Eos % (Auto) 0.5 L Baso % (Auto) 0.3 Gran # 3.40 Lymph # (Auto) 0.2 L Mckean # (Auto) 0.2 Eos # (Auto) 0.0 Baso # (Auto) 0.01 Sodium 129 L Potassium 2.6 L* Chloride 99 Carbon Dioxide 25 Anion Gap 7 L BUN < 2 L Creatinine 0.3 L Est GFR ( Amer) > 60 Est GFR (Non-Af Amer) > 60 Random Glucose 113 H Calcium 7.5 L Magnesium 1.2 L Total Bilirubin 1.0 AST 64 H D ALT 52 Alkaline Phosphatase 67 Total Protein 4.8 L Albumin 2.4 L Globulin 2.3 Albumin/Globulin Ratio 1.0 L 25-OH Vitamin D Total < 12.8 L Assessment & Plan - Assessment and Plan (Free Text) Assessment: Oropharyngeal CA Dislodged Jejunostomy tube -F/u swallow eval -Recommend PPN/TPN for nutrition -Will tentatively plan for OR jejunostomy tube on Thursday AM pending swallow eval , if pt fails swallow eval. -Replete electrolyte PRN DW Dr. Narvaez
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
[2018-02-12] MEDS: Morphine 2 mg/ml ISec IVP PRN ×3 (01:27→23:10)
[2018-02-12 08:42] LABS: EOS % 0.8 % (1.5-5.0); GRAN # 2.08 (1.4-6.5); GRAN % 82.8 % (50.0-68.0); HEMOGLOBIN 8.9 g/dL (12.0-16.0); LYMPH # 0.2 (1.2-3.4); LYMPH % 8.8 % (22.0-35.0); MEAN CELL VOLUME 91.4 fl (80.0-105.0); MEAN PLATELET VOLUME 10.6 fl (7.0-11.0); MONO # 0.2 (0.1-0.6); MONO % 7.6 % (1.0-6.0); RBC 2.78 10^6/uL (3.5-6.1); RED CELL DISTRIBUTION WIDTH 13.1 % (11.5-14.5); WHITE BLOOD COUNT 2.5 10^3/uL (4.5-11.0)
[2018-02-12 08:48] LABS: PLATELET COUNT 16 10^3/uL (120.0-450.0)
[2018-02-12 08:51] LABS: ALBUMIN 2.4 g/dL (3.0-4.8); ALT/SGPT 46 U/L (7-56); AST/SGOT 39 U/L (14-36); BLOOD UREA NITROGEN 5 mg/dL (7-21); CALCIUM 7.8 mg/dL (8.4-10.5); GFR NON-AFRICAN AMERICAN > 60
[2018-02-12 09:06] LABS: PLATELET COUNT MANUAL 24 K/mm3 (120-450)
--- NOTE | 2018-02-12 09:21 | CP.PCM.PN ---
Subjective - Date & Time of Evaluation Date of Evaluation: 02/12/18 Time of Evaluation: 09:16 - Subjective Subjective: Surgery Progress note- Dr. Ruiz Patient seen and examined at bedside. Patient having moderate abdominal pain. Currently running TPN. Unable to pass wire via old J-tube site by IR. rustam f/c/cp/sob +flatus and BM Objective - Vital Signs/Intake and Output Vital Signs (last 24 hours): Temp Pulse Resp BP Pulse Ox 97.8 F 83 20 95/64 L 99 02/11/18 22:27 02/11/18 22:27 02/11/18 22:27 02/11/18 22:27 02/11/18 22:27 - Medications Medications: Current Medications Folic Acid (Folic Acid) 1 mg IVP DAILY [facility] Last Admin: 02/11/18 17:31 Dose: 1 mg Dextrose/Sodium Chloride (Dextrose 5%/0.45% Ns 1000 Ml) 1,000 mls @ 75 mls/hr IV .[id number] [facility] Last Admin: 02/10/18 19:52 Dose: 75 mls/hr Chromium/Copper/Manganese/Zinc 1 ml/ Multivitamins/Vitamin C 10 ml/ Amino Acids/Electrolytes/Dextrose 2,011 mls @ 83 mls/hr IV .Q24H [facility] Stop: 02/15/18 17:59 Amino Acids/Electrolytes/Dextrose (Clinimix 4.25/5 % "E" (2000 Ml)) 2,000 mls @ 83 mls/hr IV .Q24H [facility] Stop: 02/12/18 17:59 Last Admin: 02/11/18 20:38 Dose: 83 mls/hr Fat Emulsion Intravenous (Intralipid 20%) 250 mls @ 21 mls/hr IV 1800 [facility] Stop: 02/15/18 17:59 Morphine Sulfate (Morphine) 1 mg IVP Q4H PRN PRN Reason: moderate pain 3-7 Last Admin: 02/12/18 06:12 Dose: 1 mg Nystatin (Nystatin Oral Susp) 5 ml PO QID [facility] Last Admin: 02/11/18 21:58 Dose: 5 ml Pantoprazole Sodium (Protonix Inj) 40 mg IVP DAILY [facility] Last Admin: 02/11/18 10:27 Dose: 40 mg Silver Sulfadiazine (Silvadene 1% 25 Gm) 25 gm TP BID [facility] Last Admin: 02/11/18 10:28 Dose: 25 gm - Labs Labs: 02/12/18 08:00 02/12/18 08:00 PT 12.4 SECONDS (9.4-12.5) 02/09/18 23:45 INR 1.09 02/09/18 23:45 APTT 31.8 Seconds (25.1-36.5) 02/09/18 23:45 - Constitutional Appears: Non-toxic, No Acute Distress, Chronically Ill - Head Exam Head Exam: ATRAUMATIC - Eye Exam Eye Exam: EOMI - ENT Exam ENT Exam: Mucous Membranes Moist - Respiratory Exam Respiratory Exam: NORMAL BREATHING PATTERN. absent: Accessory Muscle Use, Respiratory Distress - Cardiovascular Exam Cardiovascular Exam: +S1, +S2. absent: Bradycardia, Tachycardia - GI/Abdominal Exam GI & Abdominal Exam: Soft. absent: Distended, Firm, Guarding, Rigid, Tenderness Additional comments: Skin incision from J-tube site closed - Extremities Exam Extremities Exam: absent: Calf Tenderness - Neurological Exam Neurological Exam: Alert, Awake, Oriented x3 - Skin Skin Exam: Intact, Warm Assessment and Plan - Assessment and Plan (Free Text) Assessment: 52F w/ Orpharyngeal squamous cell Ca, s/p J-tube dislodgement Plan: - f/u swallow eval - will need medical clearance optimization prior to procedure - replete electrolytes PRN - if swallow eval fails, will discuss w/ GI for possible scope - surgical treatment pending - further recs per Dr. Ruiz surgical attending PGY2
[2018-02-12] MEDS: Nystatin 100,000 Units/ml Oral Susp 5 ml UD PO SCH ×5 (10:23→22:00)
[2018-02-12] MEDS: Silver Sulfadiazine 1% Cream (25 gm) TP SCH ×3 (10:24→17:25)
[2018-02-12] MEDS ORDERED: DiphenhydrAMINE 50 mg/ml Inj IVP STA (10:58)
--- NOTE | 2018-02-12 17:47 | CP.PCM.PN ---
Subjective - Date & Time of Evaluation Date of Evaluation: 02/12/18 Time of Evaluation: 10:35 - Subjective Subjective: NAD, denies chest pain, no SOB Objective - Vital Signs/Intake and Output Vital Signs (last 24 hours): Temp Pulse Resp BP Pulse Ox 98 F 67 18 94/62 L 99 02/12/18 17:26 02/12/18 17:26 02/12/18 17:26 02/12/18 17:26 02/12/18 06:00 Intake and Output: 02/12/18 02/12/18 06:59 18:59 Intake Total 390 Balance 390 - Medications Medications: Current Medications Amino Acids (Clinimix 4.25/5 % (2000 Ml)) 2,000 mls @ 83 mls/hr IV .Q24H [facility] Stop: 02/13/18 17:59 Amino Acids/Electrolytes/Dextrose (Clinimix 4.25/5 % "E" (2000 Ml)) 2,000 mls @ 83 mls/hr IV .Q24H [facility] Stop: 02/12/18 17:59 Last Admin: 02/11/18 20:38 Dose: 83 mls/hr Fat Emulsion Intravenous (Intralipid 20%) 250 mls @ 21 mls/hr IV 1800 [facility] Stop: 02/13/18 17:59 Morphine Sulfate (Morphine) 1 mg IVP Q4H PRN PRN Reason: moderate pain 3-7 Last Admin: 02/12/18 06:12 Dose: 1 mg Nystatin (Nystatin Oral Susp) 5 ml PO QID [facility] Last Admin: 02/12/18 17:25 Dose: Not Given Pantoprazole Sodium (Protonix Inj) 40 mg IVP DAILY [facility] Last Admin: 02/12/18 10:25 Dose: 40 mg Silver Sulfadiazine (Silvadene 1% 25 Gm) 25 gm TP BID [facility] Last Admin: 02/12/18 17:25 Dose: Not Given - Labs Labs: 02/12/18 08:00 02/12/18 08:00 PT 12.4 SECONDS (9.4-12.5) 02/09/18 23:45 INR 1.09 02/09/18 23:45 APTT 31.8 Seconds (25.1-36.5) 02/09/18 23:45 - Respiratory Exam Respiratory Exam: Clear to Ausculation Bilateral, NORMAL BREATHING PATTERN - Cardiovascular Exam Cardiovascular Exam: REGULAR RHYTHM - GI/Abdominal Exam GI & Abdominal Exam: Soft, Normal Bowel Sounds - Neurological Exam Neurological Exam: Alert, Awake Assessment and Plan (1) Dislodged jejunostomy tube Status: Acute (2) 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
[2018-02-12] MEDS ORDERED: Fat Emulsion 20% IV 250 ML IV SCH (18:00)
[2018-02-12] MEDS ORDERED: DEXTROSE IV SCH (18:00)
[2018-02-12] MEDS ORDERED: AMINO ACIDS IV SCH (18:00)
--- NOTE | 2018-02-12 19:33 | PN ---
DATE: 02/12/[address] [facility] visit on the medical floor. For Dr. Cleveland. SUBJECTIVE: The patient is a 52-year-old female admitted for dislodgement of her PEG tube 5 days with no feedings with the patient having had a swallow evaluation, which will be reviewed and known to had her tract closed up in that the PEG was unable to be reinserted with surgical reinsertion necessary; hopefully began in 3 days time. However, platelet count is low; however, there is no active bleeding with anemic indices noted for which Dr. Cleveland recommended transfusion, which was done with good effect. The patient is otherwise resting comfortably now. TPN being given with good effect. PHYSICAL EXAMINATION VITAL SIGNS: Temperature 98, pulse 67, respirations 18, blood pressure 94/62, pulse ox 99%. HEENT: Temples are sunken. She appears cachectic with tongue being moist. NECK: Supple. Erythema noted. HEART: Regular rate. LUNGS: Clear. ABDOMEN: Scaphoid, nontender. EXTREMITIES: No edema. Muscle wasting. SKIN: Warm and dry. NEUROLOGIC: Awake and alert. LABORATORY DATA: The patient's labs were done, white blood cell count of 2.5, hemoglobin of 8.9, hematocrit 25.4, platelet count of 16,000 with manual 24,000. INR 1.09 with a metabolic panel showing a sodium of 129, chloride of 97, potassium of 3.3, nonfasting glucose of 166 and AST is 39. less than 12. 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 PLAN: The plan for this patient is to correct her electrolytes as per primary doctor with surgical procedure recommended for reinsertion of her feeding tube with platelets to be given prior to the procedure with Hyperal to continue in the interim with the prognosis for this patient guarded. She is status post transfusion of 2 units of packed red blood cells, improving her hemoglobin with the value to be checked again in the morning with her other labs. This is a complex patient for comprehensive medically necessary and appropriate visit carried out in excess of 40 minutes with the patient's questions answered to her satisfaction along with nursing staff regarding her care. Baldo Best MD
[2018-02-13] MEDS: Morphine 2 mg/ml ISec IVP PRN ×4 (06:43→22:30)
--- NOTE | 2018-02-13 07:32 | CP.PCM.PN ---
Subjective - Date & Time of Evaluation Date of Evaluation: 02/13/18 Time of Evaluation: 07:29 - Subjective Subjective: General Surgery Progress for Dr. Ruiz This 52F was seen and examined at bedside she continues to complain of pain. She is passing gas, and having BM. Denies fvers chills chets pain and SOB. Objective - Vital Signs/Intake and Output Vital Signs (last 24 hours): Temp Pulse Resp BP Pulse Ox 98.5 F 63 18 109/70 97 02/13/18 05:15 02/13/18 05:15 02/13/18 05:15 02/13/18 05:15 02/12/18 22:58 Intake and Output: 02/13/18 02/13/18 06:59 18:59 Intake Total 2030 Balance 2030 - Medications Medications: Current Medications Amino Acids (Clinimix 4.25/5 % (2000 Ml)) 2,000 mls @ 83 mls/hr IV .Q24H [facility] Stop: 02/13/18 17:59 Last Admin: 02/12/18 17:46 Dose: 83 mls/hr Fat Emulsion Intravenous (Intralipid 20%) 250 mls @ 21 mls/hr IV 1800 [facility] Stop: 02/13/18 17:59 Last Admin: 02/12/18 17:46 Dose: 21 mls/hr Morphine Sulfate (Morphine) 1 mg IVP Q4H PRN PRN Reason: moderate pain 3-7 Last Admin: 02/13/18 06:43 Dose: 1 mg Nystatin (Nystatin Oral Susp) 5 ml PO QID [facility] Last Admin: 02/12/18 22:00 Dose: 5 ml Pantoprazole Sodium (Protonix Inj) 40 mg IVP DAILY [facility] Last Admin: 02/12/18 10:25 Dose: 40 mg Silver Sulfadiazine (Silvadene 1% 25 Gm) 25 gm TP BID [facility] Last Admin: 02/12/18 17:25 Dose: Not Given - Labs Labs: 02/12/18 08:00 02/12/18 08:00 PT 12.4 SECONDS (9.4-12.5) 02/09/18 23:45 INR 1.09 02/09/18 23:45 APTT 31.8 Seconds (25.1-36.5) 02/09/18 23:45 - Constitutional Appears: Non-toxic, No Acute Distress - Head Exam Head Exam: ATRAUMATIC, NORMOCEPHALIC - Eye Exam Eye Exam: EOMI - ENT Exam ENT Exam: Mucous Membranes Moist - Respiratory Exam Respiratory Exam: NORMAL BREATHING PATTERN - Cardiovascular Exam Cardiovascular Exam: +S1, +S2 - GI/Abdominal Exam GI & Abdominal Exam: Soft. absent: Guarding, Rigid, Tenderness - Extremities Exam Extremities Exam: Normal Inspection - Neurological Exam Neurological Exam: Alert, Awake - Psychiatric Exam Psychiatric exam: Normal Affect, Normal Mood - Skin Skin Exam: Dry, Intact Assessment and Plan - Assessment and Plan (Free Text) Assessment: 52F w/ Orpharyngeal squamous cell Ca, s/p J-tube dislodgement Plan: - will need medical clearance optimization prior to procedure - replete electrolytes PRN - surgical treatment pending Further recs per Dr. Joseph Doyle PGY3
[2018-02-13 09:23] LABS: EOS % 0.3 % (1.5-5.0); GRAN # 2.96 (1.4-6.5); GRAN % 81.8 % (50.0-68.0); HEMOGLOBIN 12.4 g/dL (12.0-16.0); LYMPH # 0.2 (1.2-3.4); LYMPH % 6.6 % (22.0-35.0); MEAN CELL VOLUME 91.4 fl (80.0-105.0); MEAN CORPUSCULAR HEMOGLOBIN 31.2 pg (25.0-35.0); MEAN CORPUSCULAR HGB CONC 34.2 g/dl (31.0-37.0); MONO # 0.4 (0.1-0.6); MONO % 11.3 % (1.0-6.0); RBC 3.97 10^6/uL (3.5-6.1); WHITE BLOOD COUNT 3.6 10^3/uL (4.5-11.0)
[2018-02-13] MEDS: Nystatin 100,000 Units/ml Oral Susp 5 ml UD PO SCH ×3 (09:37→17:39)
[2018-02-13] MEDS: Silver Sulfadiazine 1% Cream (25 gm) TP SCH ×2 (09:38→17:40)
[2018-02-13 09:42] LABS: PLATELET COUNT 20 10^3/uL (120.0-450.0)
[2018-02-13 09:43] LABS: PLATELET COUNT MANUAL 28 K/mm3 (120-450)
[2018-02-13 09:50] LABS: ALB/GLOB RATIO 0.9 (1.1-1.8); ALBUMIN 2.3 g/dL (3.0-4.8); ALT/SGPT 38 U/L (7-56); AST/SGOT 33 U/L (14-36); BLOOD UREA NITROGEN 8 mg/dL (7-21); CALCIUM 8.3 mg/dL (8.4-10.5); GFR NON-AFRICAN AMERICAN > 60
--- NOTE | 2018-02-13 10:15 | CP.PCM.PN ---
Subjective - Date & Time of Evaluation Date of Evaluation: 02/13/18 Time of Evaluation: 09:20 - Subjective Subjective: resting comfortably, NAD, TPN infusing Objective - Vital Signs/Intake and Output Vital Signs (last 24 hours): Temp Pulse Resp BP Pulse Ox 98.5 F 68 18 101/64 97 02/13/18 06:00 02/13/18 06:00 02/13/18 06:00 02/13/18 06:00 02/13/18 06:00 Intake and Output: 02/13/18 02/13/18 06:59 18:59 Intake Total 2030 Balance 2030 - Medications Medications: Current Medications Amino Acids (Clinimix 4.25/5 % (2000 Ml)) 2,000 mls @ 83 mls/hr IV .Q24H [facility] Stop: 02/13/18 17:59 Last Admin: 02/12/18 17:46 Dose: 83 mls/hr Fat Emulsion Intravenous (Intralipid 20%) 250 mls @ 21 mls/hr IV 1800 [facility] Stop: 02/13/18 17:59 Last Admin: 02/12/18 17:46 Dose: 21 mls/hr Morphine Sulfate (Morphine) 1 mg IVP Q4H PRN PRN Reason: moderate pain 3-7 Last Admin: 02/13/18 06:43 Dose: 1 mg Nystatin (Nystatin Oral Susp) 5 ml PO QID [facility] Last Admin: 02/13/18 09:37 Dose: 5 ml Pantoprazole Sodium (Protonix Inj) 40 mg IVP DAILY [facility] Last Admin: 02/13/18 09:37 Dose: 40 mg Silver Sulfadiazine (Silvadene 1% 25 Gm) 25 gm TP BID [facility] Last Admin: 02/13/18 09:38 Dose: 25 gm - Labs Labs: 02/13/18 09:15 02/13/18 09:15 PT 12.4 SECONDS (9.4-12.5) 02/09/18 23:45 INR 1.09 02/09/18 23:45 APTT 31.8 Seconds (25.1-36.5) 02/09/18 23:45 - Respiratory Exam Respiratory Exam: Clear to Ausculation Bilateral, NORMAL BREATHING PATTERN - Cardiovascular Exam Cardiovascular Exam: REGULAR RHYTHM - GI/Abdominal Exam GI & Abdominal Exam: Soft, Normal Bowel Sounds - Extremities Exam Extremities Exam: Normal Inspection - Neurological Exam Neurological Exam: Alert, Awake - Skin Skin Exam: Dry, Warm Assessment and Plan (1) Dislodged jejunostomy tube Status: Acute (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
[2018-02-13] MEDS ORDERED: DEXTROSE IV SCH (18:00)
[2018-02-13] MEDS ORDERED: AMINO ACIDS IV SCH (18:00)
[2018-02-13] MEDS ORDERED: Fat Emulsion 20% IV 250 ML IV SCH (18:00)
--- NOTE | 2018-02-14 05:48 | PN ---
DATE: 02/13/2018 ONCOLOGY PROGRESS NOTE LOCATION: The patient is in room 570, bed 1. SUBJECTIVE: Ms. Vanessa is unknown to our service. 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 In the meantime, the patient has been started on IV TPN for now while we are waiting to set up the patient for surgery on Thursday. In the meantime, the patient's platelet count has been progressively dropping. 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 It has gone down further. They have to give her 2 units of platelets in preparation for the surgery, one before the procedure and one during the procedure. Subjectively, the patient initially tried to drink some liquids, could not keep it down, came right back up as she is still unable to swallow at this point in time. PHYSICAL EXAMINATION: VITAL SIGNS: Stable. T-max is 98.4, respirations 18, blood pressure 94/62, and pulse ox is 99%. HEENT: Normocephalic and atraumatic. Temporal muscle wasting is noted. SKIN: An erythema is noted post radiation, previously noted rash from the Erbitux has dissipated. Skin is healed from that perspective. LUNGS: Clear to percussion and auscultation. CARDIOVASCULAR SYSTEM: Reveals PMI to be in the fifth intercostal space inside the midclavicular line. S1 and S2 are normal. No gallop or murmur is heard. ABDOMEN: Soft and nontender. EXTREMITY: Reveals no cyanosis, clubbing, or edema. NEUROLOGIC: Reveals her functions to be normal. No focal deficits are noted. LABORATORY DATA: Reveals a white count of 12.5, hemoglobin 8.9, hematocrit 25.4, platelet count 16,000 with a manual of 24,000. Metabolic panel showed sodium of 129, chloride of 97, potassium of 3.3, blood sugar 166, and AST 39. ASSESSMENT, NOTES, AND PLAN: The patient with [id number] supraglottic carcinoma, status post radiation and Erbitux-based therapy, currently has a significant odynophagia with a jejunostomy that has fallen off, and the patient needs revision of the jejunostomy tube before they can plan in for the definitive treatment. We will continue the treatments again and then have the Endoscopy or at least the Gastrointestinal people assess the patient for an endoscopy to give a better idea of how significant the scarring and persistent tumor there in the head and neck area. Loni Cleveland MD
[2018-02-14] MEDS: Morphine 2 mg/ml ISec IVP PRN ×3 (06:38→20:31)
[2018-02-14] MEDS: Nystatin 100,000 Units/ml Oral Susp 5 ml UD PO SCH ×4 (08:26→17:38)
[2018-02-14 08:41] LABS: BASO # 0.01 K/mm3 (0.0-2.0); BASO % 0.4 % (0.0-3.0); EOS % 1.2 % (1.5-5.0); GRAN # 1.77 (1.4-6.5); GRAN % 70.8 % (50.0-68.0); HEMOGLOBIN 12.7 g/dL (12.0-16.0); LYMPH # 0.2 (1.2-3.4); LYMPH % 6.4 % (22.0-35.0); MEAN CELL VOLUME 94.2 fl (80.0-105.0); MEAN CORPUSCULAR HEMOGLOBIN 30.6 pg (25.0-35.0); MEAN CORPUSCULAR HGB CONC 32.5 g/dl (31.0-37.0); MEAN PLATELET VOLUME 11.2 fl (7.0-11.0); MONO # 0.5 (0.1-0.6); MONO % 21.2 % (1.0-6.0); RBC 4.15 10^6/uL (3.5-6.1); RED CELL DISTRIBUTION WIDTH 14.5 % (11.5-14.5); WHITE BLOOD COUNT 2.5 10^3/uL (4.5-11.0)
[2018-02-14 09:08] LABS: PLATELET COUNT 34 10^3/uL (120.0-450.0)
[2018-02-14 09:26] LABS: BLOOD UREA NITROGEN 12 mg/dL (7-21); CALCIUM 8.4 mg/dL (8.4-10.5); GFR NON-AFRICAN AMERICAN > 60
[2018-02-14] MEDS: Silver Sulfadiazine 1% Cream (25 gm) TP SCH ×2 (09:27→17:38)
[2018-02-14 10:34] LABS: ATYPICAL LYMPHOCYTE 5 % (0.0-0.0); BAND 2 % (0-2); LYMPHOCYTE 10 % (22.0-35.0); NEUTROPHIL 73 % (50.0-70.0); PLATELET COUNT MANUAL 50 K/mm3 (120-450)
[2018-02-14 10:35] LABS: ANISOCYTOSIS 1+; MONOCYTE 10 % (1.0-6.0); PLATELET ESTIMATE LOW (NORMAL)
--- NOTE | 2018-02-14 11:43 | CP.PCM.PN ---
Subjective - Date & Time of Evaluation Date of Evaluation: 02/14/18 Time of Evaluation: 10:20 - Subjective Subjective: resting comfortable, NAD Objective - Vital Signs/Intake and Output Vital Signs (last 24 hours): Temp Pulse Resp BP Pulse Ox 98.8 F 72 18 83/52 L 97 02/14/18 06:00 02/14/18 06:00 02/14/18 06:00 02/14/18 06:00 02/14/18 06:00 Intake and Output: 02/14/18 02/14/18 06:59 18:59 Intake Total 0 Balance 0 - Medications Medications: Current Medications Amino Acids/Electrolytes/Dextrose (Clinimix 4.25/5 % "E" (2000 Ml)) 2,000 mls @ 83 mls/hr IV .Q24H [facility] Stop: 02/14/18 17:59 Last Admin: 02/14/18 04:28 Dose: 83 mls/hr Morphine Sulfate (Morphine) 1 mg IVP Q4H PRN PRN Reason: moderate pain 3-7 Last Admin: 02/14/18 06:38 Dose: 1 mg Nystatin (Nystatin Oral Susp) 5 ml PO QID [facility] Last Admin: 02/14/18 09:26 Dose: 5 ml Pantoprazole Sodium (Protonix Inj) 40 mg IVP DAILY [facility] Last Admin: 02/14/18 09:26 Dose: 40 mg Silver Sulfadiazine (Silvadene 1% 25 Gm) 25 gm TP BID [facility] Last Admin: 02/14/18 09:27 Dose: 25 gm - Labs Labs: 02/14/18 07:00 02/14/18 07:00 PT 12.4 SECONDS (9.4-12.5) 02/09/18 23:45 INR 1.09 02/09/18 23:45 APTT 31.8 Seconds (25.1-36.5) 02/09/18 23:45 - Respiratory Exam Respiratory Exam: Clear to Ausculation Bilateral, NORMAL BREATHING PATTERN - Cardiovascular Exam Cardiovascular Exam: REGULAR RHYTHM - GI/Abdominal Exam GI & Abdominal Exam: Soft, Normal Bowel Sounds - Neurological Exam Neurological Exam: Alert, Awake - Skin Skin Exam: Dry, Warm Assessment and Plan (1) Dislodged jejunostomy tube Status: Acute (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 Pena to resume care of pt in am
--- NOTE | 2018-02-14 11:51 | CP.PCM.PN ---
Subjective - Date & Time of Evaluation Date of Evaluation: 02/14/18 Time of Evaluation: 11:49 - Subjective Subjective: Surgery: Dr. Ruiz Pt seen and examined. Resting comfortably in bed. No complaints. Objective - Vital Signs/Intake and Output Vital Signs (last 24 hours): Temp Pulse Resp BP Pulse Ox 98.8 F 72 18 83/52 L 97 02/14/18 06:00 02/14/18 06:00 02/14/18 06:00 02/14/18 06:00 02/14/18 06:00 Intake and Output: 02/14/18 02/14/18 06:59 18:59 Intake Total 0 Balance 0 - Medications Medications: Current Medications Amino Acids/Electrolytes/Dextrose (Clinimix 4.25/5 % "E" (2000 Ml)) 2,000 mls @ 83 mls/hr IV .Q24H [facility] Stop: 02/14/18 17:59 Last Admin: 02/14/18 04:28 Dose: 83 mls/hr Morphine Sulfate (Morphine) 1 mg IVP Q4H PRN PRN Reason: moderate pain 3-7 Last Admin: 02/14/18 11:44 Dose: 1 mg Nystatin (Nystatin Oral Susp) 5 ml PO QID [facility] Last Admin: 02/14/18 09:26 Dose: 5 ml Pantoprazole Sodium (Protonix Inj) 40 mg IVP DAILY [facility] Last Admin: 02/14/18 09:26 Dose: 40 mg Silver Sulfadiazine (Silvadene 1% 25 Gm) 25 gm TP BID [facility] Last Admin: 02/14/18 09:27 Dose: 25 gm - Labs Labs: 02/14/18 07:00 02/14/18 07:00 PT 12.4 SECONDS (9.4-12.5) 02/09/18 23:45 INR 1.09 02/09/18 23:45 APTT 31.8 Seconds (25.1-36.5) 02/09/18 23:45 - Constitutional Appears: Non-toxic, No Acute Distress - Head Exam Head Exam: ATRAUMATIC, NORMOCEPHALIC - Eye Exam Eye Exam: EOMI - ENT Exam ENT Exam: Mucous Membranes Moist - Neck Exam Neck Exam: Full ROM - GI/Abdominal Exam GI & Abdominal Exam: Soft. absent: Tenderness - Extremities Exam Extremities Exam: absent: Calf Tenderness, Pedal Edema - Neurological Exam Neurological Exam: Alert, Awake, Oriented x3 Assessment and Plan - Assessment and Plan (Free Text) Assessment: 52F w/ Orpharyngeal squamous cell Ca, s/p J-tube dislodgement -Will plan for J-Tube on Thursday -Plts need to be >50K prior to OR, will coordinate w. blood bank -d/w attending Charla PGY4
--- NOTE | 2018-02-15 00:59 | PN ---
DATE: 02/14/2018 SUBJECTIVE: The patient is examined. She is resting comfortably in bed, in no acute distress. No acute events overnight. The patient still cannot swallow secondary to odynophagia and dysphagia related to the sequelae of the treatments with concurrent chemoradiation and the disease itself. The patient has stage IV supraglottic carcinoma arising from the larynx and extending into the oropharynx. The patient's jejunostomy tube had fallen out. She is being prepped for the surgery in a.m. PHYSICAL EXAMINATION: VITAL SIGNS: T-max is 98.8, pulse is 72, respirations 18, blood pressure is 83/52, pulse ox is 97% on room air. GENERAL: The patient is in no acute distress. The patient is emaciated. HEENT: Temporal muscle wasting is noted. Examination of the oropharynx reveals poor dentition. Tongue is moist. No ulcerations are noted. NECK: Supple. The patient has postradiation rash on her neck and her supraclavicular areas from the radiation completed about a month and a half ago. No skin breakdown is noted. Neck reveals no adenopathy. LUNGS: Clear to percussion and auscultation. CARDIOVASCULAR SYSTEM: Reveals S1 and S2 to be normal. No gallop is heard. ABDOMEN: Soft, nontender. At the site of the previous jejunostomy tube setting, there is a dressing there. Tube is out for several days now. EXTREMITIES: Reveal no cyanosis, clubbing, or edema. NEUROLOGICAL: Reveals the higher functions to be normal. No focal deficits are noted. LABORATORY DATA: Reveals white count of 2.5, hemoglobin 12.7, hematocrit 39, platelet count of 34,000. Sodium is 135, K is 4.3, chloride 102, CO2 of 33, BUN of 12, creatinine 0.4. Blood sugar is 93. PT and PTT are normal. MEDICATIONS: The patient's medications were reviewed, and the patient is just on nystatin suspension 5 mL 4 times daily, pantoprazole 40 mg IV daily, Silvadene to topical areas 25 g t.i.d. topically. ASSESSMENT, NOTES, AND PLAN: The patient is on partial parenteral nutrition right now to keep the nutrition going while waiting for the jejunostomy tube placement. The patient will need platelet transfusions at least 2 units of platelets pre- and post-placement of jejunostomy tube to avoid complications. The thrombocytopenia is from her underlying cirrhosis of the liver. We will reach out to surgical team to make sure they have platelets on hold prior to her being taken to the operating room. We will speak to Dr. Ruiz as well. Loni Cleveland MD
[2018-02-15] MEDS: Morphine 2 mg/ml ISec IVP PRN ×5 (02:35→22:50)
[2018-02-15] MEDS: Nystatin 100,000 Units/ml Oral Susp 5 ml UD PO SCH ×5 (07:26→21:47)
[2018-02-15] MEDS: Silver Sulfadiazine 1% Cream (25 gm) TP SCH (07:35)
--- NOTE | 2018-02-15 07:44 | CP.PCM.PN ---
Subjective - Date & Time of Evaluation Date of Evaluation: 02/15/18 Time of Evaluation: 06:43 - Subjective Subjective: PGY-1 Alena Kee D.O. Surgery progress note for Dr. Ruiz: Patient was seen and examined this morning. She states she is feeling fine. No acute complaints. She is NPO as she failed swallow eval and is pending J-tube replacement. Objective - Vital Signs/Intake and Output Vital Signs (last 24 hours): Temp Pulse Resp BP Pulse Ox 98.5 F 65 20 81/55 L 97 02/14/18 22:00 02/14/18 22:00 02/14/18 22:00 02/14/18 22:00 02/14/18 22:00 Intake and Output: 02/15/18 02/15/18 06:59 18:59 Intake Total 0 Balance 0 - Medications Medications: Current Medications Morphine Sulfate (Morphine) 1 mg IVP Q4H PRN PRN Reason: moderate pain 3-7 Last Admin: 02/15/18 07:32 Dose: 1 mg Nystatin (Nystatin Oral Susp) 5 ml PO QID [facility] Last Admin: 02/15/18 07:26 Dose: Not Given Pantoprazole Sodium (Protonix Inj) 40 mg IVP DAILY [facility] Last Admin: 02/14/18 09:26 Dose: 40 mg Silver Sulfadiazine (Silvadene 1% 25 Gm) 25 gm TP BID [facility] Last Admin: 02/15/18 07:35 Dose: 25 gm - Labs Labs: 02/14/18 07:00 02/14/18 07:00 PT 12.4 SECONDS (9.4-12.5) 02/09/18 23:45 INR 1.09 02/09/18 23:45 APTT 31.8 Seconds (25.1-36.5) 02/09/18 23:45 - Constitutional Appears: No Acute Distress, Cachectic - Head Exam Head Exam: ATRAUMATIC - Eye Exam Eye Exam: EOMI, Normal appearance - ENT Exam ENT Exam: Mucous Membranes Moist - Respiratory Exam Respiratory Exam: NORMAL BREATHING PATTERN. absent: Accessory Muscle Use, Respiratory Distress - Cardiovascular Exam Cardiovascular Exam: REGULAR RHYTHM - GI/Abdominal Exam GI & Abdominal Exam: Soft. absent: Distended, Tenderness - Back Exam Back Exam: NORMAL INSPECTION - Neurological Exam Neurological Exam: Alert, Awake, Oriented x3 - Psychiatric Exam Psychiatric exam: Normal Affect, Normal Mood - Skin Skin Exam: Dry, Normal Color, Warm Assessment and Plan - Assessment and Plan (Free Text) Assessment: 52F with orpharyngeal squamous cell carcinoma s/p J-tube dislodgement Plan: - Accuchecks Q4H - TPN daily - OR tomorrow 02/16 for J-tube replacement - Coordinate platelets with blood bank (>50,000 pre-op) Further recs as per attending, Dr. Ruiz.
[2018-02-15 08:24] LABS: BASO # 0.01 K/mm3 (0.0-2.0); BASO % 0.4 % (0.0-3.0); EOS % 1.1 % (1.5-5.0); GRAN # 1.92 (1.4-6.5); GRAN % 71.7 % (50.0-68.0); HEMOGLOBIN 12.9 g/dL (12.0-16.0); LYMPH # 0.2 (1.2-3.4); LYMPH % 6.7 % (22.0-35.0); MEAN CELL VOLUME 95.9 fl (80.0-105.0); MEAN CORPUSCULAR HEMOGLOBIN 31.3 pg (25.0-35.0); MEAN CORPUSCULAR HGB CONC 32.7 g/dl (31.0-37.0); MEAN PLATELET VOLUME 12.1 fl (7.0-11.0); MONO # 0.5 (0.1-0.6); MONO % 20.1 % (1.0-6.0); RBC 4.12 10^6/uL (3.5-6.1); RED CELL DISTRIBUTION WIDTH 14.5 % (11.5-14.5); WHITE BLOOD COUNT 2.7 10^3/uL (4.5-11.0)
[2018-02-15 08:41] LABS: BLOOD UREA NITROGEN 17 mg/dL (7-21); CALCIUM 8.6 mg/dL (8.4-10.5); GFR NON-AFRICAN AMERICAN > 60
[2018-02-15] MEDS ORDERED: Fat Emulsion 20% IV 250 ML IV ONE (18:00)
--- NOTE | 2018-02-16 01:03 | PN ---
DATE: 02/15/2018 LOCATION: The patient is in room 570, bed 1. PROBLEMS: This is a 52-year-old female with stage IV supraglottic carcinoma of the larynx extending into the hypopharynx with odynophagia, dysphagia, still cannot swallow saliva or any liquids post-chemoradiation about a month ago, who is admitted to the hospital, because the jejunostomy tube fell off, and the patient is in the process of having the jejunostomy tube reinserted again surgically as the patient could not have it re-put in percutaneously under Interventional Radiology guidance. The patient had in the background, cirrhosis of the liver and sequestration thrombocytopenia, which are also being monitored. The patient is currently on IV TPN in preparation for the jejunostomy tube insertion, so that we can continue again her feedings once things are stabilized. In the meantime, we are going to get GI evaluation to see if the patient is a candidate or at least an upper GI evaluation, specifically from a point of view of an endoscopy. We will get ENT followed as well. PHYSICAL EXAMINATION: VITAL SIGNS: T-max is 98.4, pulse of 65, respirations 20, blood pressure is 81/55, pulse ox is 97% on room air. HEENT: The patient's head is normocephalic, atraumatic. Conjunctivae pale. Sclerae are anicteric. Pupils are equally reactive to light and accommodation. Examination of the oropharynx reveals the tongue to be dry. No oropharyngeal lesions are noted. No bleeding is noted. No ulcerations are noted. NECK: Supple. There is no adenopathy. Radiation changes are noted. There is no palpable adenopathy. LUNGS: Clear to percussion and auscultation. HEART: Reveals PMI to be in the 5th intercostal space inside the midclavicular line. ABDOMEN: Soft and scaphoid. ,No rebound, rigidity, or guarding is noted. Had a previous jejunostomy surgery as noted. EXTREMITIES: Reveal no cyanosis, clubbing, or edema. SKIN: The patient has significant loss of muscle mass and has temporal muscle wasting noted. Skin turgor is normal. No skin lesions are noted. GENITOURINARY/RECTAL: Deferred. NEUROLOGIC: Reveals higher functions to be normal. No focal deficits are noted. LABORATORY DATA: From today reveals white count of 2.7, hemoglobin 12.9, hematocrit 39.5, platelet count of 50,000. Electrolytes: Within normal limits. BUN is 5, creatinine is 0.4. Blood sugars have been 147. LFTs have been normal. MEDICATIONS: The patient's medications were reviewed. The patient is on IV alimentation and morphine sulfate 1 mg IV every 4 hours p.r.n. for pain. She is on nystatin 5 mL 4 times daily, 40 mg pantoprazole IV daily. ASSESSMENT, NOTES, AND PLAN: The patient has stage JOSIANE supraglottic carcinoma of the larynx extending into the hypopharynx. The patient has been prepped for placement of jejunostomy tube in a.m. under supervision of Dr. Ruiz, tried to reach out the [facility], [facility] Th[facility] and Gastroenterology as well to assess the status of the upper airways and more importantly the upper digestive tract to determine when the patient may be a suitable candidate to try to start feeding or does the patient need dilatation post-treatment and to check for disease persistent status, which should also be important at this point in time. Routine post-exam instructions have been given to the patient, and the patient is going to require 2 units of platelets while going to the operating room for the planned jejunostomy. This is a complex patient with multiple comorbid medical issues. Time spent with the patient is greater than 35 minutes. Loni Cleveland MD
[2018-02-16] MEDS: Morphine 2 mg/ml ISec IVP PRN (02:54)
[2018-02-16] MEDS ORDERED: Bupivacaine 0.5% 50 ML IJ ONE ×2 (07:23→08:10)
[2018-02-16] MEDS ORDERED: Lidocaine 2% Inj (20ml) ONE (07:23)
[2018-02-16] MEDS ORDERED: Phenylephrine 10 mg/ml Inj ONE (07:43)
[2018-02-16] MEDS ORDERED: Etomidate 20 mg/10ml Inj IV ONE (07:43)
[2018-02-16] MEDS ORDERED: Succinylcholine 200 mg/10 ml Inj IV ONE (07:46)
[2018-02-16] MEDS ORDERED: Rocuronium 10 mg/ml (5 ml) ONE (07:46)
[2018-02-16] MEDS ORDERED: CeFAZolin 1 gm in NS 100ml IVPB ONE (07:50)
[2018-02-16] MEDS ORDERED: Midazolam 2 MG/2 ML VIAL ONE (07:53)
[2018-02-16] MEDS ORDERED: ePHEDrine 50 mg/ml Inj ONE (08:04)
--- NOTE | 2018-02-16 08:20 | PN ---
DATE: 02/15/2018 SUBJECTIVE: The patient is a 52-year-old female. The patient was seen and examined at the bedside on 02/15/2018. The patient is seen looking comfortable, resting. No fever. No chills. No hematuria or hematochezia. No swelling of the legs. No chest pain. No palpitation. No headache or dizziness. PHYSICAL EXAMINATION: VITAL SIGNS: Temperature 98.8, pulse 72, respiratory rate 18, blood pressure 83/52, pulse oximetry 97. HEENT: Head: Normocephalic, atraumatic. Eyes: PERRLA. Extraocular muscles are intact. Conjunctivae clear. Nose patent. Mucous membranes moist. NECK: Supple. No carotid bruit. No JVD or thyromegaly. CHEST: Bilaterally symmetrical. HEART: S1 and S2, positive. LUNGS: Clear to auscultation. ABDOMEN: Soft. Bowel sounds present. No organomegaly. EXTREMITIES: No edema. No cyanosis. NEUROLOGIC: The patient is awake and alert. Follows simple commands. MEDICATIONS: Morphine, nystatin oral suspension, Protonix, Silvadene cream. LABORATORY DATA: White blood cells 2.5, hemoglobin 12.7, hematocrit 39.1, platelets 34. Sodium 155, potassium 4.3, BUN 12, creatinine 0.4, glucose 93. ASSESSMENT AND PLAN: Ms. Anuradha Vanessa is a 52-year-old female with leukopenia, anemia, thrombocytopenia, actually pancytopenia, has dislodged jejunostomy tube, squamous cell cancer of the epiglottis. Continue total parenteral nutrition. Waiting for jejunostomy placement. Surgery is on the case. Seen by Dr. Cleveland and 2 units of platelet transfusions are given pre- and post-placement of jejunostomy tube to avoid complications. Thrombocytopenia is from her underlying sources of the liver. Gastrointestinal and deep venous thrombosis prophylaxis. Repeat labs. We will follow up. Shireen Pena MD
[2018-02-16] MEDS ORDERED: Morphine 2 mg/ml ISec IVP PRN ×2 (09:26→16:24)
--- NOTE | 2018-02-16 09:26 | PCM.SURG1 ---
Surgeon's Initial Post Op Note - Surgeon's Notes Surgeon: Joseph Wellness Ambassador: Charla PGY4, Stephen PGY3 Type of Anesthesia: General Endo Pre-Operative Diagnosis: Oropharyngeal SCC w. displaced J-tube Operative Findings: pexied loop of bowel to abdominal wall Post-Operative Diagnosis: same Operation Performed: Witzel J-Tube Specimen/Specimens Removed: none Estimated Blood Loss: EBL {In ML}: 25 Blood Products Given: N/A Drains Used: Ostomy Device (J-Tube) Post-Op Condition: Good Date of Surgery/Procedure: 02/16/18 Time of Surgery/Procedure: 09:26
[2018-02-16] MEDS ORDERED: HYDROmorphone 0.5 mg/0.5 ml ISec IVP PRN (09:30)
[2018-02-16] MEDS ORDERED: Lactated Ringer's 1,000 ML IV SCH (09:30)
[2018-02-16] MEDS ORDERED: HYDROmorphone 0.5 mg/0.5 ml ISec IVP ONE ×3 (09:49→10:45)
[2018-02-16] MEDS ORDERED: HYDROmorphone 0.5 mg/0.5 ml ISec ONE ×3 (09:50→10:48)
[2018-02-16] MEDS ORDERED: Lactated Ringer's 500 ML IV SCH (13:45)
[2018-02-16] MEDS: Nystatin 100,000 Units/ml Oral Susp 5 ml UD PO SCH ×4 (13:47→21:30)
[2018-02-16] MEDS: cefOXitin Sodium 1 GM in Sodium Chloride 0.9% 100 ML IV SCH ×2 (16:01→22:55)
[2018-02-16] MEDS ORDERED: Morphine 2 mg/ml ISec IVP STA (16:22)
[2018-02-16] MEDS ORDERED: Morphine 4 mg/ml ISec IVP STA (16:23)
[2018-02-16] MEDS ORDERED: Fat Emulsion 20% IV 250 ML IV ONE (18:00)
[2018-02-16] MEDS: Morphine 4 mg/ml ISec IVP PRN ×2 (20:11→23:58)
--- NOTE | 2018-02-17 00:53 | PN ---
DATE: 02/16/2018 SUBJECTIVE: The patient was seen and examined at the bedside on 02/16/2018. The patient seen and examined in her room, complaining about abdominal pain, got morphine from surgical team, getting parenteral nutrition. No fever. No chills. No hematuria or hematochezia. No headache or dizziness. PHYSICAL EXAMINATION: VITAL SIGNS: Temperature 97.6, pulse 92, blood pressure 80/54, and respiratory rate 20. HEENT: Head: Normocephalic, atraumatic. Eyes: PERRLA. Extraocular muscles intact. Conjunctivae clear. Nose patent. Mucous membranes moist. NECK: Supple. No carotid bruit. No JVD or thyromegaly. CHEST: Bilaterally symmetrical. HEART: S1 and S2, positive. LUNGS: Clear to auscultation. ABDOMEN: Soft, tender, especially at J-tube area and it has dressing. EXTREMITIES: No edema. No cyanosis. NEUROLOGIC: The patient is awake, alert, follows simple commands. MEDICATIONS: Getting parenteral nutrition, morphine, nystatin oral suspension, Protonix, Reglan. LABORATORY DATA: White blood cells 2.7, hemoglobin 12.9, hematocrit 39.5, and platelets 50. Glucose 153. Sodium 135, potassium 4.1. ASSESSMENT AND PLAN: Ms. Anuradha Vanessa is a 52-year-old female with leukopenia, thrombocytopenia, hyperglycemia, history of oropharyngeal cancer, came with dislodgement of the jejunostomy tube. Today she got a new jejunostomy tube, but according to the patient, she is in too much pain, getting morphine. 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 PLAN: Continue present treatment, pain medication. Discussion done with patient's nursing staff. Repeat labs. We will follow up. Shireen Pena MD
--- NOTE | 2018-02-17 01:05 | OP ---
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 POSTOPERATIVE DIAGNOSIS: Oropharyngeal squamous cell carcinoma with displaced jejunostomy tube. PROCEDURE: Witzel jejunostomy. SURGEON: Jeovany Ruiz MD INDICATIONS: This is a 52-year-old female with a history of oropharyngeal squamous cell carcinoma with inability to tolerated p.o. intake, who previously had a Witzel jejunostomy done. The J-tube became displaced and it is likely that she had another one placed for interval nutrition. DESCRIPTION OF PROCEDURE: After informed consent was obtained, the patient was taken to the operating room and placed on the operating table in a supine position. A general anesthesia was induced, and the patient was prepped and draped in the usual sterile fashion. A timeout was then conducted verifying correct procedure, patient site, position, laterality, and implants. Next, a midline incision was made. The incision was deepened through the subcutaneous tissue until the fascia was encountered. The fascia was incised and the peritoneal cavity was entered. Once inside the abdominal cavity, the loop of jejunum was noticed to be pexied to the abdominal wall where the prior J-tube was placed. This was taken down with Metzenbaum scissors. Some serosal tears of the bowel were encountered. These tears were repaired with interrupted 3-0 silk sutures. Next, a pursestring suture was placed just distally to the original site on the antimesenteric side of the jejunum. After the pursestring suture was placed, a stab incision was then made in the abdominal wall on the left side and #18 [place] red rubber catheter was introduced. Cautery was used to make an enterotomy in the jejunum and the red rubber catheter was placed. The pursestring was tied and 3-0 Vicryl was used to make a Witzel tunnel. The Vicryl was placed in a running fashion. The Witzel tunnel was approximately 5 cm long. Next, the jejunum was pexied to the anterior abdominal wall with interrupted 3-0 Vicryl sutures. The catheter was then secured to the skin using 0 silk. The catheter was then flushed with saline and was found to be patent. Next, the fascia was closed with #1 PDS in a running manner and the skin was closed with tatiana. The patient tolerated the procedure well and was taken to the PACU in stable condition. Gee Dunham DO Jeovany Ruiz MD [facility] # [id number]
[2018-02-17] MEDS: Morphine 4 mg/ml ISec IVP PRN ×2 (04:08→07:53)
[2018-02-17 06:30] LABS: BASO # 0.01 K/mm3 (0.0-2.0); BASO % 0.1 % (0.0-3.0); EOS % 0.2 % (1.5-5.0); GRAN # 6.12 (1.4-6.5); GRAN % 76.2 % (50.0-68.0); HEMOGLOBIN 13.8 g/dL (12.0-16.0); LYMPH # 0.9 (1.2-3.4); LYMPH % 10.8 % (22.0-35.0); MEAN CELL VOLUME 96.6 fl (80.0-105.0); MEAN CORPUSCULAR HEMOGLOBIN 30.9 pg (25.0-35.0); MEAN CORPUSCULAR HGB CONC 31.9 g/dl (31.0-37.0); MEAN PLATELET VOLUME 11.1 fl (7.0-11.0); MONO % 12.7 % (1.0-6.0); RBC 4.47 10^6/uL (3.5-6.1); RED CELL DISTRIBUTION WIDTH 14.5 % (11.5-14.5)
[2018-02-17 07:03] LABS: BLOOD UREA NITROGEN 15 mg/dL (7-21); CALCIUM 8.4 mg/dL (8.4-10.5); GFR NON-AFRICAN AMERICAN > 60
[2018-02-17] MEDS ORDERED: HYDROmorphone 0.2 mg/ml (30ml) 30 ML IV PRN ×6 (07:40→07:55)
--- NOTE | 2018-02-17 08:03 | CP.PCM.PN ---
Subjective - Date & Time of Evaluation Date of Evaluation: 02/17/18 Time of Evaluation: 08:00 - Subjective Subjective: Surgery: Dr. Ruiz Pt seen and examined. Pain control was an issue overnight. No N/V. No F/C. Objective - Vital Signs/Intake and Output Vital Signs (last 24 hours): Temp Pulse Resp BP Pulse Ox 98.5 F 92 H 18 86/59 L 99 02/16/18 22:15 02/16/18 22:15 02/16/18 22:15 02/16/18 22:15 02/16/18 22:15 Intake and Output: 02/17/18 02/17/18 06:59 18:59 Intake Total 1248 Balance 1248 - Medications Medications: Current Medications Amino Acids/Electrolytes/Dextrose (Clinimix 4.25/5 % "E" (2000 Ml)) 2,000 mls @ 83 mls/hr IV .Q24H [facility] Stop: 02/17/18 17:59 Last Admin: 02/16/18 17:45 Dose: 83 mls/hr Hydromorphone HCl (Dilaudid 0.2 Mg/Ml Capsule Filling Machine Operator) 30 mls @ 0 mls/hr IV PRN PRN; Protocol PRN Reason: MARKETING PRODUCTION COORDINATOR PER MD ORDER Hydromorphone HCl (Dilaudid 0.2 Mg/Ml Capsule Filling Machine Operator) 30 mls @ 0.2 mls/hr IV PRN PRN; Protocol PRN Reason: MARKETING PRODUCTION COORDINATOR PER MD ORDER Metoclopramide HCl (Reglan) 10 mg IV ONCE PRN PRN Reason: Nausea/Vomiting Morphine Sulfate (Morphine) 4 mg IVP Q4H PRN PRN Reason: Pain, moderate (4-7) Last Admin: 02/17/18 07:53 Dose: 4 mg Nystatin (Nystatin Oral Susp) 5 ml PO QID [facility] Last Admin: 02/16/18 21:30 Dose: 5 ml Pantoprazole Sodium (Protonix Inj) 40 mg IVP DAILY [facility] Last Admin: 02/16/18 15:57 Dose: 40 mg - Labs Labs: 02/17/18 06:00 02/17/18 06:00 PT 12.4 SECONDS (9.4-12.5) 02/09/18 23:45 INR 1.09 02/09/18 23:45 APTT 31.8 Seconds (25.1-36.5) 02/09/18 23:45 - Constitutional Appears: Non-toxic, No Acute Distress - Head Exam Head Exam: ATRAUMATIC, NORMOCEPHALIC - Eye Exam Eye Exam: EOMI - ENT Exam ENT Exam: Mucous Membranes Moist - Neck Exam Neck Exam: Full ROM - Respiratory Exam Respiratory Exam: NORMAL BREATHING PATTERN. absent: Accessory Muscle Use, Respiratory Distress - GI/Abdominal Exam GI & Abdominal Exam: Soft, Tenderness (qasim-incisional ). absent: Distended, Firm, Guarding, Rigid, Rebound Additional comments: J-tube in place - Extremities Exam Extremities Exam: absent: Calf Tenderness, Pedal Edema - Neurological Exam Neurological Exam: Alert, Awake, Oriented x3 - Psychiatric Exam Psychiatric exam: Normal Affect, Normal Mood Assessment and Plan - Assessment and Plan (Free Text) Assessment: 52F w. oropharyngeal SCC, s/p J-tube POD#1 -will start MARKETING PRODUCTION COORDINATOR for pain control -Ok to start tube feeds today -will continue to follow -d/w attending Zemaitis PGY4
[2018-02-17] MEDS: Nystatin 100,000 Units/ml Oral Susp 5 ml UD PO SCH ×4 (11:51→21:14)
[2018-02-17] MEDS ORDERED: HYDROmorphone 1 mg/ml ISec IVP STA (13:07)
[2018-02-17] MEDS: Sodium Chloride 0.9% 1,000 ML IV SCH (13:45)
--- NOTE | 2018-02-17 22:37 | PN ---
DATE: 02/17/2018 ONCOLOGY PROGRESS NOTE SUBJECTIVE: The patient is seen and examined at the bedside. The patient is complaining of a lot of pain at the operative site, where she had the jejunostomy tube reinserted after it had fallen out and the tract had closed off, and the patient had to have surgery again to have it reinserted the day before yesterday. The patient is in considerable pain since the tube is put in and is currently not on the morphine LENO SEWER. The patient is requesting for additional pain medicines. Denies any fevers or chills. The patient still cannot swallow. No hematuria. No hematochezia. No headaches or dizziness. Pain on a pain scale of 0-10 is at least 8 or 9. PHYSICAL EXAMINATION: VITAL SIGNS: Stable. T-max is 98.4, pulse is 92, blood pressure is 80/54, respirations 20. HEENT: Head is normocephalic, atraumatic. Conjunctivae pale. Temporal muscle wasting is noted. Examination of the oropharynx reveals poor dentition. No oropharyngeal lesions are noted. Tongue is coated and dry. No obvious source of bleeding is noted in the oropharynx. NECK: Supple. There is no adenopathy. No jugular venous distention noted. The patient has radiation changes in the neck area from the completion of radiation test done about a month ago. HEART: Reveals PMI to be in the 5th intercostal space inside the midclavicular line. S1 and S2 are normal. No gallop or murmur is heard. ABDOMEN: Soft, nontender. The patient has a J-tube at the site and that is where she is having most of the pain. EXTREMITIES: Reveal no cyanosis, clubbing, or edema. NEUROLOGIC: The patient is awake, alert and oriented, in no significant distress. MEDICATIONS: The patient is getting parenteral nutrition, morphine, nystatin suspension, Protonix, and Reglan. The patient is going to start on enteral alimentation today, and they are going to stop the PPN. In the meantime, she will continue at least the LENO SEWER for now until the pain is better controlled. LABORATORY DATA: Reveals the white count 2.7, hemoglobin 12.9, hematocrit 39.5, platelet count of 50,000. Glucose is 153, sodium is 135, and potassium is 4.1. 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 Status post dislodgement of the jejunostomy catheter reinserted, intractable pain post insertion of tube, currently on patient-controlled analgesia. We will continue to monitor the patient. Once the patient's pain is stable, we can then decide after the jejunostomy feedings are established, which direction we should proceed. Plan in the past before all these things happened was to continue on Erbitux-based chemotherapy as an outpatient because of the locally advanced nature of the disease. Given the fact she is having so many comorbid issues, repeating a scan, specifically a PET/CT scan will be of help. Getting Gastroenterology or Ear, Nose and Throat to evaluate her oropharyngeal area will be most appropriate at this point in time to see how far we have accomplished as far as the treatment-related outcome is concerned, has the passages opened up post-radiation, now is the time to find out how the patient is doing. Note to get both input from Gastroenterology and Ear, Nose, and Throat as well. We will talk to the primary team as well about getting both these groups involved in the care. Loni Cleveland MD
[2018-02-18] MEDS: Sodium Chloride 0.9% 1,000 ML IV SCH (02:00)
--- NOTE | 2018-02-18 03:22 | PN ---
DATE: 02/17/2018 SUBJECTIVE: The patient was seen and examined at the bedside on 02/17/2018, complaining about abdominal pain especially after a surgery. Actually, her G-tube fell out and now is put back by the surgical team by another surgery. According to the patient, she is in intractable pain. Pain medication is not helping. Now the patient is started on AMMONIA WORKER. PHYSICAL EXAMINATION VITAL SIGNS: Temperature 98.6, pulse 90, blood pressure 90/50, respiratory rate 18. HEENT: Head: Normocephalic, atraumatic. Eyes: PERRLA. Extraocular muscles intact. Conjunctivae clear. Nose patent. Mucous membrane moist. NECK: Supple. No carotid bruit. No JVD or thyromegaly. CHEST: Bilaterally symmetrical. HEART: S1 and S2 positive. LUNGS: Clear to auscultation. ABDOMEN: Soft, tender to touch. EXTREMITIES: No edema. No cyanosis. NEUROLOGICAL: The patient is awake and alert. Follows simple commands. MEDICATIONS: Dilaudid, morphine, nystatin oral suspension, Protonix, Reglan. LABORATORY DATA: White blood cell 8, hemoglobin 13.8, hematocrit 43.2, platelets 109. Sodium 134, potassium 4.5, BUN 15, creatinine 0.4, glucose 113. ASSESSMENT AND PLAN: Ms. Anuradha Vanessa is a 52-year-old lady with a history of leukopenia, improved; history of anemia, improved; history of thrombocytopenia; she came with platelets 22, now it is 109; hyperglycemia. 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 The patient is getting analgesic. According to surgical team, we can restart feeding. Oncologist is on the case. Surgical team is on the case. Gastrointestinal and deep venous thrombosis prophylaxis. Repeat labs. We will follow up. Shireen Pena MD [employer]
[2018-02-18] MEDS: Nystatin 100,000 Units/ml Oral Susp 5 ml UD PO SCH ×4 (11:14→21:19)
--- NOTE | 2018-02-18 14:06 | CP.PCM.PN ---
Subjective - Date & Time of Evaluation Date of Evaluation: 02/18/18 Time of Evaluation: 14:04 - Subjective Subjective: Surgery: Dr. Ruiz Pt seen and examined. Resting comfortably in bed. Pain control is improved. Tolerating tube feeds. Objective - Vital Signs/Intake and Output Vital Signs (last 24 hours): Temp Pulse Resp BP Pulse Ox 98.1 F 78 18 88/55 L 97 02/18/18 08:00 02/18/18 08:00 02/18/18 08:00 02/18/18 08:00 02/18/18 08:00 Intake and Output: 02/18/18 02/18/18 06:59 18:59 Intake Total 1520 Balance 1520 - Medications Medications: Current Medications Sodium Chloride (Sodium Chloride 0.9%) 1,000 mls @ 75 mls/hr IV .[id number] [facility] Last Admin: 02/18/18 02:00 Dose: 75 mls/hr Metoclopramide HCl (Reglan) 10 mg IV ONCE PRN PRN Reason: Nausea/Vomiting Morphine Sulfate (Morphine) 4 mg IVP Q4H PRN PRN Reason: Pain, moderate (4-7) Last Admin: 02/17/18 07:53 Dose: 4 mg Nystatin (Nystatin Oral Susp) 5 ml PO QID [facility] Last Admin: 02/18/18 11:14 Dose: 5 ml Pantoprazole Sodium (Protonix Inj) 40 mg IVP DAILY [facility] Last Admin: 02/18/18 11:14 Dose: 40 mg - Labs Labs: 02/17/18 06:00 02/17/18 06:00 PT 12.4 SECONDS (9.4-12.5) 02/09/18 23:45 INR 1.09 02/09/18 23:45 APTT 31.8 Seconds (25.1-36.5) 02/09/18 23:45 - Constitutional Appears: Non-toxic, No Acute Distress - Head Exam Head Exam: ATRAUMATIC, NORMOCEPHALIC - Eye Exam Eye Exam: EOMI - ENT Exam ENT Exam: Mucous Membranes Moist - Neck Exam Neck Exam: Full ROM, Normal Inspection - Respiratory Exam Respiratory Exam: NORMAL BREATHING PATTERN. absent: Accessory Muscle Use, Respiratory Distress - GI/Abdominal Exam GI & Abdominal Exam: Soft, Tenderness (qasim-incisional ). absent: Distended, Fi rm, Guarding, Rigid, Rebound Additional comments: J-Tube in place, dressings C/D/I - Extremities Exam Extremities Exam: absent: Calf Tenderness, Pedal Edema - Neurological Exam Neurological Exam: Alert, Awake, Oriented x3 Assessment and Plan - Assessment and Plan (Free Text) Assessment: 52F w. oropharyngeal SCC, s/p J-tube POD#2 -Pain controlled, will d/c ROLLER CLEANER, morphine IVP prn for pain -c/w TF as tolerated -will follow -d/w attending Zemaitis PGY4
[2018-02-18] MEDS: Enoxaparin 30 mg Syringe SC SCH (18:30)
[2018-02-18] MEDS: Morphine 4 mg/ml ISec IVP PRN ×2 (18:38→21:18)
[2018-02-19] MEDS: Morphine 4 mg/ml ISec IVP PRN ×5 (03:03→20:04)
--- NOTE | 2018-02-19 05:18 | PN ---
DATE: 02/18/2018 This is [facility] visit on the medical floor. For Dr. Cleveland. SUBJECTIVE: The patient is a 52-year-old female known to suffer from T4N0M0 locally advanced squamous cell carcinoma of the oropharynx, now with her malfunctioning jejunostomy feeding tube, replaced two days prior by Dr. Ruiz. At this point, the patient is reporting significant discomfort at the PEG site for which narcotic analgesics will be given to relieve her pain; otherwise, the patient remains n.p.o. for now; is otherwise in no acute distress except for her pain at the PEG site. She is also suffering from cachexia, malignancy and malnutrition. The patient's tube feedings to resume. Her thrombocytopenia significantly improved. PHYSICAL EXAMINATION VITAL SIGNS: Temperature 98.9, pulse 71, respirations 18, blood pressure 86/58, pulse ox 97%. She weighs 80 pounds, height 5 feet 4 inches tall. HEENT: Patel complexion with radiation dermatitis of her neck, now significantly improved. Temples are sunken. She appears cachectic. Tongue is dry. NECK: With erythema as noted. HEART: Regular rate. LUNGS: Clear. ABDOMEN: Scaphoid with dressing and jejunostomy tube noted. EXTREMITIES: No edema with muscle wasting. SKIN: Warm and dry. NEUROLOGIC: Awake and alert. LABORATORY DATA: The patient's labs were done, white blood cell count of 8, hemoglobin of 13.8 done from yesterday, hematocrit 43.2, platelet count of 109,000 with a metabolic panel from yesterday showing creatinine 0.4, with a blood glucose from today of 106. ASSESSMENT: The assessment for this patient is replacement of her jejunostomy tube with insertion of a gastrostomy tube done as per Dr. Ruiz two days prior. Cachexia, malignancy, failure to thrive, locally advanced squamous cell cancer of the oropharynx, history of radiation dermatitis, history of ethyl alcohol abuse, cirrhosis of the liver, thrombocytopenia, hypotension, depression, anxiety, electrolyte imbalance, noncompliance, malnutrition. PLAN: Plan for this patient is to continue present medical regimen. At present, she is receiving morphine 4 mg IV every 4 hours. We will increase it to 5 mg every 4 hours p.r.n. for severe pain. We will continue present medical regimen with nystatin and Reglan, IV fluids and feedings as per Surgery and eventually as indicated. We will monitor clinically with labs with the prognosis for this patient guarded. This is a complex patient with a comprehensive medically necessary and appropriate visit carried out in excess of 40 minutes with the patient's questions answered to her satisfaction. Baldo Best MD
[2018-02-19] MEDS: Sodium Chloride 0.9% 1,000 ML IV SCH ×2 (05:33→18:03)
--- NOTE | 2018-02-19 05:41 | PN ---
DATE: 02/18/2018 SUBJECTIVE: The patient is a 52-year-old female. The patient was seen and examined at the bedside on 02/18/2018. Looking comfortable. Pain was controlled with pump but after discontinuing pump according to her, she is again in pain. Tolerating tube feeding very well. No fever. No chills. No hematuria or hematochezia. No headache or dizziness. No chest pain. No palpitation. PHYSICAL EXAMINATION: VITAL SIGNS: Temperature 98.1, pulse 78, respiratory rate 18, blood pressure 88/55, pulse oximetry 97. HEENT: Head is normocephalic and atraumatic. Eyes: PERRLA. Extraocular muscles intact. Conjunctivae clear. Nose patent. NECK: Supple. No carotid bruit. No JVD or thyromegaly. CHEST: Bilaterally symmetrical. HEART: S1 and S2 positive. LUNGS: Clear to auscultation. ABDOMEN: Soft. Bowel sounds present. No organomegaly. EXTREMITIES: No edema. No cyanosis. NEUROLOGIC: The patient is awake and alert. Moving all four extremities. No focal deficit. MEDICATIONS: NS, Reglan, morphine, nystatin suspension, pantoprazole. LABORATORY DATA: We do not have labs today, but I reviewed old labs. ASSESSMENT AND PLAN: Ms. Anuradha Vanessa is a 52-year-old lady with thrombocytopenia, hyperglycemia, with oropharyngeal carcinoma. pain controlled. Discontinued patient-controlled analgesia but after as she is having pain. Still on morphine intravenous as needed for pain. Back into tube feeding as tolerated. Gastrointestinal and deep venous thrombosis prophylaxis. Repeat labs. We will follow up. Shireen Pena MD MTDD
[2018-02-19 05:53] LABS: BASO # 0.01 K/mm3 (0.0-2.0); BASO % 0.3 % (0.0-3.0); GRAN # 1.93 (1.4-6.5); GRAN % 65.7 % (50.0-68.0); LYMPH # 0.4 (1.2-3.4); LYMPH % 14.3 % (22.0-35.0); MEAN CELL VOLUME 97.2 fl (80.0-105.0); MEAN CORPUSCULAR HEMOGLOBIN 31.3 pg (25.0-35.0); MEAN CORPUSCULAR HGB CONC 32.2 g/dl (31.0-37.0); MEAN PLATELET VOLUME 10.3 fl (7.0-11.0); MONO # 0.6 (0.1-0.6); MONO % 18.7 % (1.0-6.0); RBC 3.61 10^6/uL (3.5-6.1); RED CELL DISTRIBUTION WIDTH 14.1 % (11.5-14.5); WHITE BLOOD COUNT 2.9 10^3/uL (4.5-11.0)
[2018-02-19 05:59] LABS: HEMOGLOBIN 11.3 g/dL (12.0-16.0)
[2018-02-19 06:20] LABS: ALB/GLOB RATIO 0.9 (1.1-1.8); ALBUMIN 2.3 g/dL (3.0-4.8); ALT/SGPT 23 U/L (7-56); AST/SGOT 18 U/L (14-36); BLOOD UREA NITROGEN 6 mg/dL (7-21); CALCIUM 8.2 mg/dL (8.4-10.5); GFR NON-AFRICAN AMERICAN > 60
--- NOTE | 2018-02-19 08:02 | CP.PCM.PN ---
Subjective - Date & Time of Evaluation Date of Evaluation: 02/19/18 Time of Evaluation: 06:59 - Subjective Subjective: PGY-1 Alena Kee D.O. Surgery progress note for Dr. Ruiz: Patient was seen and examined this morning. She is still complaining of abdominal pain with movement. Pain is tolerable with current pain med regimen. She is tolerating tube feeds. Denies nausea and vomiting. Encouraged patient to ambulate. Objective - Vital Signs/Intake and Output Vital Signs (last 24 hours): Temp Pulse Resp BP Pulse Ox 98.3 F 86 20 86/54 L 99 02/18/18 23:17 02/18/18 23:17 02/18/18 23:17 02/18/18 23:17 02/18/18 23:17 Intake and Output: 02/19/18 02/19/18 06:59 18:59 Intake Total 1520 Balance 1520 - Medications Medications: Current Medications Enoxaparin Sodium (Lovenox) 30 mg SC DAILY [facility]; Protocol Last Admin: 02/18/18 18:30 Dose: 30 mg Sodium Chloride (Sodium Chloride 0.9%) 1,000 mls @ 75 mls/hr IV .[id number] [facility] Last Admin: 02/19/18 05:33 Dose: 75 mls/hr Metoclopramide HCl (Reglan) 10 mg IV ONCE PRN PRN Reason: Nausea/Vomiting Morphine Sulfate (Morphine) 5 mg IVP Q4H PRN PRN Reason: Pain, severe (8-10) Last Admin: 02/19/18 07:10 Dose: 5 mg Nystatin (Nystatin Oral Susp) 5 ml PO QID [facility] Last Admin: 02/18/18 21:19 Dose: 5 ml Pantoprazole Sodium (Protonix Inj) 40 mg IVP DAILY [facility] Last Admin: 02/18/18 11:14 Dose: 40 mg - Labs Labs: 02/19/18 05:45 02/19/18 05:45 PT 12.4 SECONDS (9.4-12.5) 02/09/18 23:45 INR 1.09 02/09/18 23:45 APTT 31.8 Seconds (25.1-36.5) 02/09/18 23:45 - Constitutional Appears: No Acute Distress, Older Than Stated Age, Cachectic - Head Exam Head Exam: ATRAUMATIC, NORMAL INSPECTION - Eye Exam Eye Exam: EOMI, Normal appearance - ENT Exam ENT Exam: Mucous Membranes Moist - Neck Exam Neck Exam: Normal Inspection - Respiratory Exam Respiratory Exam: NORMAL BREATHING PATTERN. absent: Accessory Muscle Use, Respiratory Distress - Cardiovascular Exam Cardiovascular Exam: RRR - GI/Abdominal Exam GI & Abdominal Exam: Soft, Tenderness. absent: Distended Additional comments: J-tube- dressings changed no signs of bleeding or infection - Extremities Exam Extremities Exam: Normal Inspection - Neurological Exam Neurological Exam: Alert, Awake, Oriented x3 - Psychiatric Exam Psychiatric exam: Normal Affect, Normal Mood - Skin Skin Exam: Dry, Normal Color, Warm Assessment and Plan - Assessment and Plan (Free Text) Assessment: 52F with orpharyngeal squamous cell carcinoma, POD3 J-tube placement. Plan: - Continue tube feeds - Analgesics PRN - Physical therapy- encourage ambulation, OOB - SC Lovenox for at least 1 month No further surgical intervention at this time- please reconsult if needed. Further recs as per attending, Dr. Ruiz.
[2018-02-19] MEDS: Enoxaparin 30 mg Syringe SC SCH (11:11)
[2018-02-19] MEDS: Nystatin 100,000 Units/ml Oral Susp 5 ml UD PO SCH ×4 (11:11→22:18)
--- NOTE | 2018-02-19 19:54 | PN ---
DATE: 02/19/2018 SUBJECTIVE: The patient is a 52-year-old female seen sitting up in bed status post placement of a gastrostomy tube after her jejunostomy tube malfunctioned and the tract closed with need for sustenance as the patient is unable to swallow at present. We will ask for ears, nose, and throat evaluation with Dr. Albert and Dr. Newman to evaluate this aspect of her care. 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 She was also unable to get out of bed to the chair today due to the pain with the patient requesting an abdominal support and to be done as per surgical recommendations. OBJECTIVE/PHYSICAL EXAMINATION: VITAL SIGNS: Temperature 98.5, pulse 73, respirations 18, blood pressure 97/61, pulse oximetry 98%. HEENT: Patel complexion. NECK: Status post radiation dermatitis changes. HEART: Regular rate. LUNGS: Clear. ABDOMEN: Soft with dressings around new gastrostomy tube which appears to be functioning. EXTREMITIES: No edema. SKIN: Warm and dry. NEUROLOGIC: Awake and alert with the patient appearing cachectic with the patient weighing 80 pounds. LABORATORY DATA: The patient's labs were done. White blood cell count of 2.9, hemoglobin of 11.3 status post transfusion on 02/12/2018 and 02/13/2018 with platelets being given prior to her procedure on 02/16/2018. Platelet count of 91,000 today. Her metabolic panel was within normal range except for total protein of 4, albumin of 2.3, calcium of 8.2. 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 RECOMMENDATIONS: After conversation with Dr. Cleveland, we recommend reevaluation by ears, nose, and throat Dr. Albert, Dr. Newman, and Dr. Ren for possible resumption of swallowing as indicated with continuation of present medical regimen along with Dr. Whyte and substitute recommendations regarding nourishment for cachexia. This is a complex patient with a comprehensive medically necessary and appropriate visit carried out in excess of 20 minutes with the patient's questions answered to her satisfaction. Baldo Best MD
--- NOTE | 2018-02-19 21:07 | CON ---
DATE: 02/19/2018 REASON FOR CONSULTATION: Fluid management, malfunction of PEG tube. HISTORY OF PRESENT ILLNESS: A 52-year-old lady with history of squamous cell CA of the oropharynx, malnutrition, history of alcohol abuse, cirrhosis of the liver, thrombocytopenia, chronic anemia, PEG placement in 10/2017, was admitted on 02/09 because of a dislodged G-tube 5 days prior to presentation. The patient was diagnosed with carcinoma in 10/2017, she was given 26 rounds of radiation, she had 2 cycles of chemotherapy. She could not complete 6 cycles of chemotherapy. She had been PEG placed initially in October, she had to have it replaced in December. Since December, she has lost 20 pounds. She complains of burning in the throat, dysphagia, left-sided upper abdominal pain. She had her PEG replaced. Consultation is requested for fluid management. PAST MEDICAL AND SURGICAL HISTORY: As mentioned above. FAMILY HISTORY: CAD in mother, throat cancer in father. SOCIAL HISTORY: Alcohol abuse, she stopped drinking in October, history of cocaine abuse as a teenager. ALLERGIES: NO KNOWN DRUG ALLERGIES. MEDICATIONS: She is currently on Lovenox, morphine, Protonix, Reglan, normal saline at 75. REVIEW OF SYSTEMS: Complains of severe pain in the left upper quadrant, complains of burning, complains of dysphagia. All other systems are reviewed and unremarkable. PHYSICAL EXAMINATION: GENERAL: Thinly built middle-aged lady lying in bed, appears cachectic. VITAL SIGNS: Blood pressure 97/61, heart rate 73, respiratory rate 18, temperature 98.5. HEENT: Normocephalic, atraumatic, positive pallor. NECK: Supple, no JVD. LUNGS: Bilateral equal air entry, bilateral equal expansion. No rales. CARDIAC: S1, S2. Regular rate and rhythm. No murmur, no rub. ABDOMEN: Soft, scaphoid, tenderness in the left upper quadrant, positive PEG, bowel sounds present. EXTREMITIES: No lower extremity edema. INTAKE AND OUTPUT: Not charted. LABORATORY DATA: WBC is 2.9, hemoglobin 11, hematocrit 35, platelets 91. Sodium 138, potassium 4, chloride 107, CO2 29, BUN 6, creatinine 0.3, glucose 107, calcium 8.2, albumin 2.3, corrected calcium is 8.7. AST 18, ALT 23. ASSESSMENT AND PLAN: 1. Cachexia. 2. Malnutrition. 3. Locally invasive cancer of the oropharynx. 4. Malfunctioning jejunostomy tube. 5. History of alcohol abuse. 6. Cirrhosis of the liver with thrombocytopenia. 7. Hypotension. PLAN: 1. Continue normal saline. 2. Continue tube feeding. 3. Monitor electrolytes. 4. Increase tube feedings as tolerated. We will consider hyperal if feeding is . Shanae Whyte MD
[2018-02-20] MEDS: Morphine 4 mg/ml ISec IVP PRN ×3 (00:10→22:11)
--- NOTE | 2018-02-20 04:31 | PN ---
DATE: 02/19/2018 SUBJECTIVE: The patient is a 52-year-old female. The patient was seen and examined at the bedside, sitting on the chair, still complaining of severe pain in the left upper quadrant, complaining of burning sensation and dysphagia. No fever. No chills. No hematuria. No hematochezia. No headache. No dizziness. PHYSICAL EXAMINATION: VITAL SIGNS: Blood pressure 97/61, heart rate 73, respiratory rate 18, and temperature 98.5. HEENT: Head, normocephalic and atraumatic. Eyes: PERRLA. Extraocular muscles intact. Conjunctivae clear. Nose is patent. Mucous membranes moist. NECK: Supple. No carotid bruit. No JVD or thyromegaly. CHEST: Bilaterally symmetrical. HEART: S1 and S2 positive. LUNGS: Clear to auscultation. ABDOMEN: Soft, obtunded in left upper quadrant. EXTREMITIES: No edema. No cyanosis. NEUROLOGICAL: The patient is awake and alert. Moving all four extremities. No focal deficit. MEDICATIONS: Lovenox, morphine, Protonix, Reglan, and normal saline at 75. LABORATORY DATA: White blood cell 2.9, hemoglobin 11, hematocrit 35, platelets 91. Sodium 138, potassium 4, BUN 6, creatinine 0.3, glucose 107. AST 18, ALT 23. ASSESSMENT AND PLAN: Ms. Anuradha Vanessa has cachexia, malnutrition, locally invasive cancer of the oropharynx, malfunctioning jejunostomy tube, history of alcohol abuse, cirrhosis of the liver with thrombocytopenia, and hypotension. Nephrology also saw the patient, Increase tube feedings as tolerated. We will consider hyperalimentation if feeding will be not tolerated by the patient with the jejunostomy tube. Seen by Dr. Baldo Best and Dr. Jeovany Ruiz. Need physical therapy. Repeat laboratories. We will follow up. Shireen Pena MD MTDD
[2018-02-20] MEDS: Sodium Chloride 0.9% 1,000 ML IV SCH (06:35)
[2018-02-20 07:03] LABS: HEMOGLOBIN 10.8 g/dL (12.0-16.0); MEAN CELL VOLUME 97.2 fl (80.0-105.0); MEAN CORPUSCULAR HEMOGLOBIN 30.7 pg (25.0-35.0); MEAN CORPUSCULAR HGB CONC 31.6 g/dl (31.0-37.0); MEAN PLATELET VOLUME 10.7 fl (7.0-11.0); RBC 3.52 10^6/uL (3.5-6.1); RED CELL DISTRIBUTION WIDTH 14.3 % (11.5-14.5); WHITE BLOOD COUNT 2.8 10^3/uL (4.5-11.0)
[2018-02-20 07:24] LABS: BLOOD UREA NITROGEN 12 mg/dL (7-21); CALCIUM 8.2 mg/dL (8.4-10.5); GFR NON-AFRICAN AMERICAN > 60
[2018-02-20] MEDS: Enoxaparin 30 mg Syringe SC SCH (09:45)
[2018-02-20] MEDS: Nystatin 100,000 Units/ml Oral Susp 5 ml UD PO SCH ×4 (09:45→21:45)
--- NOTE | 2018-02-20 16:18 | PN ---
DATE: 02/20/2018 SUBJECTIVE: The patient is seen lying in bed, but she is awake, she is alert, she is comfortable. She reports she is feeling better. Her pain is more controlled. She is able to get out of bed and use the commode. PHYSICAL EXAMINATION: GENERAL: A cachectic middle aged lady lying in bed. VITAL SIGNS: Blood pressure 92/60, heart rate 74, respiratory rate 18, temperature 98.5. HEENT: Normocephalic, atraumatic, positive pallor. NECK: Supple, no JVD. LUNGS: Bilateral equal air entry, bilateral equal expansion. CARDIAC: S1, S2, regular rate and rhythm, no murmur, no rub. ABDOMEN: Soft, scaphoid, positive PEG, bowel sounds present. EXTREMITIES: No lower extremity edema. LABORATORY DATA: WBC 2.8, hemoglobin 10.8, hematocrit 34, platelets 101. Sodium 138, potassium 3.7, chloride 107, CO2 of 29, BUN 12, creatinine 0.4, glucose 104. Calcium 8.2. CURRENT MEDICATIONS: Lovenox 30, morphine p.r.n., Protonix 40, Reglan 10 mg IV p.r.n., normal saline at 75. ASSESSMENT: 1. Malnutrition. 2. Oropharyngeal cancer. 3. Malfunctioning percutaneous endoscopic gastrostomy, not replaced. 4. Alcoholic cirrhosis. PLAN: 1. Discontinue IV fluids. 2. Increase PEG feeds as tolerated. 3. Electrolytes stable. Shanae Whyte MD
--- NOTE | 2018-02-20 22:54 | PN ---
DATE: 02/20/2018 SUBJECTIVE: The patient is a 52-year-old female. The patient was seen and examined at the bedside on 02/20/2018, looking comfortable. Pain is little bit better, more controlled. Able to get out of the bed and use the commode. No fever. No chills. No hematuria. No hematochezia. PHYSICAL EXAMINATION VITAL SIGNS: Blood pressure 92/50, heart rate 72, respiratory rate 18, and temperature 98.6. HEENT: Head; normocephalic, atraumatic. Eyes; PERRLA. Extraocular muscles are intact. Conjunctivae are clear. Nose patent. Mucous membranes moist.. NECK: Supple. No carotid bruit. No JVD or thyromegaly. CHEST: Bilateral symmetrical. HEART: S1 and S2 positive. LUNGS: Bilateral equal air entry. Bilateral equal expansion. ABDOMEN: Soft, scaphoid. Has PEG tube. Dressing looks like not stained. Bowel sounds are positive. EXTREMITIES: No edema. No cyanosis. NEUROLOGIC: The patient is awake and alert. Follows simple commands. LABORATORY DATA: White blood cells 2.8, hemoglobin 10.8, hematocrit 34, and platelets 101. Sodium 130, potassium 3.7, BUN 12, creatinine 0.4, glucose 104, and calcium 8.2. CURRENT MEDICATIONS: Lovenox, morphine, Protonix, Reglan, and NS ASSESSMENT AND PLAN: Ms. Anuradha Vanessa is a 52-year-old lady with malnutrition, oropharyngeal cancer, dysphagia, used to have jejunostomy tube, fell out, got new jejunostomy tube, alcoholic cirrhosis, history of intractable abdominal pain, was on morphine pump. Seen by Dr. Whyte. Discontinue IV fluid. Increase percutaneous endoscopic gastrostomy tube feeding. Electrolytes are stable. Out of bed. Physical therapy. Gastrointestinal and deep venous thrombosis prophylaxis. Repeat labs. We will follow up. Shireen Pena MD
[2018-02-21] MEDS: Morphine 4 mg/ml ISec IVP PRN ×5 (02:22→20:17)
[2018-02-21 06:48] LABS: HEMOGLOBIN 11.3 g/dL (12.0-16.0); MEAN CELL VOLUME 96.5 fl (80.0-105.0); MEAN CORPUSCULAR HEMOGLOBIN 30.7 pg (25.0-35.0); MEAN CORPUSCULAR HGB CONC 31.8 g/dl (31.0-37.0); MEAN PLATELET VOLUME 10.5 fl (7.0-11.0); RBC 3.68 10^6/uL (3.5-6.1); RED CELL DISTRIBUTION WIDTH 14.2 % (11.5-14.5); WHITE BLOOD COUNT 3.2 10^3/uL (4.5-11.0)
[2018-02-21 07:01] LABS: BLOOD UREA NITROGEN 10 mg/dL (7-21); GFR NON-AFRICAN AMERICAN > 60
[2018-02-21] MEDS: Nystatin 100,000 Units/ml Oral Susp 5 ml UD PO SCH ×4 (09:25→22:11)
[2018-02-21] MEDS: Enoxaparin 30 mg Syringe SC SCH (09:25)
[2018-02-21] MEDS ORDERED: POLYETHYLENE GLYCOL 3350 17 GM/Dose PACKET PO PRN (21:00)
--- NOTE | 2018-02-21 22:33 | CP.PCM.PN ---
Subjective - Date & Time of Evaluation Date of Evaluation: 02/20/18 Time of Evaluation: 21:00 - Subjective Subjective: No acute issues; Pain controlled; no BM in a few days ROS: 12 ROS otherwise negative Objective - Vital Signs/Intake and Output Vital Signs (last 24 hours): Temp Pulse Resp BP Pulse Ox 97.9 F 79 18 83/53 L 96 02/21/18 14:00 02/21/18 14:00 02/21/18 14:00 02/21/18 14:00 02/21/18 14:00 - Medications Medications: Current Medications Docusate Sodium (Colace Liquid) 100 mg PO BID [facility] Last Admin: 02/21/18 21:30 Dose: 100 mg Enoxaparin Sodium (Lovenox) 30 mg SC DAILY [facility]; Protocol Last Admin: 02/21/18 09:25 Dose: 30 mg Metoclopramide HCl (Reglan) 10 mg IV ONCE PRN PRN Reason: Nausea/Vomiting Morphine Sulfate (Morphine) 5 mg IVP Q4H PRN PRN Reason: Pain, severe (8-10) Last Admin: 02/21/18 20:17 Dose: 5 mg Nystatin (Nystatin Oral Susp) 5 ml PO QID [facility] Last Admin: 02/21/18 22:11 Dose: 5 ml Pantoprazole Sodium (Protonix Inj) 40 mg IVP DAILY [facility] Last Admin: 02/21/18 09:26 Dose: 40 mg Polyethylene Glycol (Miralax) 17 gm PO DAILY PRN PRN Reason: Constipation - Labs Labs: 02/21/18 06:30 02/21/18 06:30 PT 12.4 SECONDS (9.4-12.5) 02/09/18 23:45 INR 1.09 02/09/18 23:45 APTT 31.8 Seconds (25.1-36.5) 02/09/18 23:45 - Constitutional Appears: Non-toxic - Head Exam Head Exam: ATRAUMATIC, NORMAL INSPECTION, NORMOCEPHALIC - Cardiovascular Exam Cardiovascular Exam: REGULAR RHYTHM, +S1, +S2. absent: Murmur - GI/Abdominal Exam GI & Abdominal Exam: Soft, Normal Bowel Sounds. absent: Tenderness - Back Exam Back Exam: NORMAL INSPECTION Assessment and Plan - Assessment and Plan (Free Text) Assessment: Ms. Vanessa rich 52 y/o woman with pmhx signfificant for SCC of oropharynx (T4N0MO) s/p CCRT, Jtube placement who is currently in the hospital with XRT related dermatitis, and failure to thrive. Agree with primary team's management in increase tube feeds. Patient has not had a BM in 3 days will optimize narcotic bowel regimen.
--- NOTE | 2018-02-21 22:37 | CP.PCM.PN ---
Subjective - Date & Time of Evaluation Date of Evaluation: 02/21/18 Time of Evaluation: 21:00 - Subjective Subjective: Still no BM; pain controlled ROS: 12 ROS otherwise negative pain: denies Objective - Vital Signs/Intake and Output Vital Signs (last 24 hours): Temp Pulse Resp BP Pulse Ox 99 F 83 16 83/58 L 96 02/21/18 22:32 02/21/18 22:32 02/21/18 22:32 02/21/18 22:32 02/21/18 22:32 - Medications Medications: Current Medications Docusate Sodium (Colace Liquid) 100 mg PO BID [facility] Last Admin: 02/21/18 21:30 Dose: 100 mg Enoxaparin Sodium (Lovenox) 30 mg SC DAILY [facility]; Protocol Last Admin: 02/21/18 09:25 Dose: 30 mg Metoclopramide HCl (Reglan) 10 mg IV ONCE PRN PRN Reason: Nausea/Vomiting Morphine Sulfate (Morphine) 5 mg IVP Q4H PRN PRN Reason: Pain, severe (8-10) Last Admin: 02/21/18 20:17 Dose: 5 mg Nystatin (Nystatin Oral Susp) 5 ml PO QID [facility] Last Admin: 02/21/18 22:11 Dose: 5 ml Pantoprazole Sodium (Protonix Inj) 40 mg IVP DAILY [facility] Last Admin: 02/21/18 09:26 Dose: 40 mg Polyethylene Glycol (Miralax) 17 gm PO DAILY PRN PRN Reason: Constipation - Labs Labs: 02/21/18 06:30 02/21/18 06:30 PT 12.4 SECONDS (9.4-12.5) 02/09/18 23:45 INR 1.09 02/09/18 23:45 APTT 31.8 Seconds (25.1-36.5) 02/09/18 23:45 - Constitutional Appears: Well - Respiratory Exam Respiratory Exam: Clear to Ausculation Bilateral, NORMAL BREATHING PATTERN - Cardiovascular Exam Cardiovascular Exam: REGULAR RHYTHM, +S1, +S2. absent: Murmur - GI/Abdominal Exam GI & Abdominal Exam: Soft, Normal Bowel Sounds. absent: Tenderness - Extremities Exam Extremities Exam: Full ROM, Normal Capillary Refill, Normal Inspection. absent: Joint Swelling, Pedal Edema Assessment and Plan - Assessment and Plan (Free Text) Assessment: Ms. Vanessa rich 52 y/o woman with pmhx signfificant for SCC of oropharynx (T4N0MO) s/p CCRT, Jtube placement who is currently in the hospital with XRT related dermatitis, and failure to thrive. Agree with primary team's management in increase tube feeds. Patient has not had a BM in 3 days will optimize narcotic bowel regimen.
[2018-02-22] MEDS: Morphine 4 mg/ml ISec IVP PRN ×6 (00:35→21:28)
--- NOTE | 2018-02-22 01:58 | PN ---
DATE: 02/21/2018 SUBJECTIVE: The patient is a 52-year-old. The patient was seen and examined at the bedside on 02/21/2018, looking comfortable. Pain is getting under control. Still not had bowel movement. No fever. No chills. No hematuria. No hematochezia. No headache. No dizziness. PHYSICAL EXAMINATION: VITAL SIGNS: Temperature 99, pulse 83, respiratory rate 16, blood pressure 86/58, and pulse oximetry 96. HEENT: Head is normocephalic and atraumatic. Eyes; PERRLA. Extraocular muscles are intact. Conjunctivae clear. Nose patent. Mucous membranes moist. NECK: Supple. No carotid bruits, JVD, or thyromegaly. CHEST: Bilaterally symmetrical. HEART: S1 and S2 positive. LUNGS: Clear to auscultation. ABDOMEN: Soft. Bowel sounds present. No organomegaly. EXTREMITIES: No edema. No cyanosis. NEUROLOGIC: The patient is awake and alert. Moving all four extremities. No focal deficits. MEDICATIONS: Colace, Lovenox, Reglan, morphine, nystatin, Protonix, and MiraLax. LABORATORY DATA: White blood cell 3.2, hemoglobin 11.2, hematocrit 35.5, and platelets 107. Sodium 139 and potassium 3.5. ASSESSMENT AND PLAN: Hyperchloremia. The patient has oropharyngeal cancer, status post chemoradiation, placement is for hospital. Gastrointestinal and deep venous thrombosis prophylaxes. Her percutaneous endoscopic gastrostomy tube looking very well. Continue present treatment. Repeat labs. We will follow up. Shireen Pena MD MTDCorin
[2018-02-22] MEDS: Nystatin 100,000 Units/ml Oral Susp 5 ml UD PO SCH ×3 (09:23→17:49)
[2018-02-22] MEDS: Enoxaparin 30 mg Syringe SC SCH (09:24)
--- NOTE | 2018-02-22 09:55 | CP.PCM.CON ---
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 Patient undergoing chemotherapy / radiation. S/P J tube placement (11/2017 ) , decompensated alcoholic cirrhosis , malnutrition , ETOH abuse , thrombocytopenia , anemia of chronic disease , depression and anxiety - presented to hospital with history of displacement of J tube with inablitity to reinsert. Patient c/o dysphagia / throat pain , denies dyspnea / dysphonia. Review of Systems - EENT Nose/Mouth/Throat: As Per HPI - Gastrointestinal Gastrointestinal: Dyspepsia, Dysphagia Past Patient History - Infectious Disease Hx of Infectious Diseases: None - Tetanus Immunizations Tetanus Immunization: Unknown - Past Medical History & Family History Past Medical History?: Yes - Past Social History Smoking Status: Never Smoked Alcohol: > 2 Drinks/Day - CARDIAC Hx Cardiac Disorders: No - PULMONARY Hx Respiratory Disorders: No - NEUROLOGICAL Hx Neurological Disorder: No - HEENT Other/Comment: dysphagia. SCC Hypopharynx - RENAL Hx Chronic Kidney Disease: No - ENDOCRINE/METABOLIC Hx Endocrine Disorders: No - HEMATOLOGICAL/ONCOLOGICAL Hx Blood Transfusions: Yes Hx Blood Transfusion Reaction: No - INTEGUMENTARY Hx Dermatological Problems: Yes - MUSCULOSKELETAL/RHEUMATOLOGICAL Hx Falls: No - GASTROINTESTINAL Hx Gastrointestinal Disorders: Yes - GENITOURINARY/GYNECOLOGICAL Hx Genitourinary Disorders: No - PSYCHIATRIC Hx Anxiety: Yes Hx Depression: Yes - SURGICAL HISTORY Hx Surgeries: Yes - ANESTHESIA Hx Anesthesia Reactions: No Hx Malignant Hyperthermia: No Meds Allergies/Adverse Reactions: Allergies Allergy/AdvReac Type Severity Reaction Status Date / Time No Known Allergies Allergy Verified 11/01/17 21:37 - Medications Medications: Current Medications Enoxaparin Sodium (Lovenox) 30 mg SC DAILY [facility]; Protocol Last Admin: 02/20/18 09:45 Dose: 30 mg Metoclopramide HCl (Reglan) 10 mg IV ONCE PRN PRN Reason: Nausea/Vomiting Morphine Sulfate (Morphine) 5 mg IVP Q4H PRN PRN Reason: Pain, severe (8-10) Last Admin: 02/20/18 13:10 Dose: 5 mg Nystatin (Nystatin Oral Susp) 5 ml PO QID [facility] Last Admin: 02/20/18 13:11 Dose: 5 ml Pantoprazole Sodium (Protonix Inj) 40 mg IVP DAILY [facility] Last Admin: 02/20/18 09:46 Dose: 40 mg Physical Exam - Constitutional Additional comments: malnurished - Head Exam Head Exam: ATRAUMATIC - Eye Exam Eye Exam: EOMI, PERRL - ENT Exam ENT Exam: Normal External Ear Exam Additional comments: EAC / TM wnl , no fluid / erythema Nose - large septal perforation , mucosa atrophic - Expanded ENT Exam Expanded Mouth exam: dry mucosa Throat exam: Normal Inspection (DFL done at bedside , Nasopharynx wnl , BOT / Vallecula clear , Right AE fold / Right pyriform sinus with Edema / erythema / pooling of secretions - residual tumor cannot be ruled out - significant improvement from 11/2017 exam , mild edema of left AE fold / arytenoid , TVC with normal mobility / airway patent ) - Neck Exam Neck exam: Positive for: Normal Inspection - Respiratory Exam Respiratory Exam: NORMAL BREATHING PATTERN - Cardiovascular Exam Cardiovascular Exam: REGULAR RHYTHM - Neurological Exam Neurological exam: Alert, CN II-XII Intact, Oriented x3 Results - Vital Signs Recent Vital Signs: Last Vital Signs Temp 98.1 F 02/20/18 14:49 Pulse 78 02/20/18 14:49 Resp 16 02/20/18 14:49 BP 85/55 L 02/20/18 14:49 Pulse Ox 97 02/20/18 14:49 - Labs Result Diagrams: 02/20/18 06:05 02/20/18 06:05 Labs: Laboratory Results - last 24 hr 02/19/18 02/19/18 02/20/18 16:16 21:10 06:05 WBC 2.8 L RBC 3.52 Hgb 10.8 L Hct 34.2 L MCV 97.2 MCH 30.7 MCHC 31.6 RDW 14.3 Plt Count 101 L MPV 10.7 Sodium Potassium Chloride Carbon Dioxide Anion Gap BUN Creatinine Est GFR ( Amer) Est GFR (Non-Af Amer) POC Glucose (mg/dL) 100 96 Random Glucose Calcium 02/20/18 02/20/18 02/20/18 06:05 06:20 11:25 WBC RBC Hgb Hct MCV MCH MCHC RDW Plt Count MPV Sodium 138 Potassium 3.7 Chloride 107 Carbon Dioxide 29 Anion Gap 6 L BUN 12 Creatinine 0.4 L Est GFR ( Amer) > 60 Est GFR (Non-Af Amer) > 60 POC Glucose (mg/dL) 113 H 104 Random Glucose 104 Calcium 8.2 L Assessment & Plan (1) Squamous cell carcinoma of overlapping sites of hypopharynx Status: Acute (2) Nasal septal perforation Status: Acute (3) Dysphagia, pharyngoesophageal Status: Acute (4) Cellulitis of arm, left Status: Acute (5) Lower extremity edema Status: Acute (6) Anemia Status: Acute Priority: High (7) Ascites Status: Acute (8) Hypocalcemia Status: Acute Priority: High (9) Fracture of distal end of tibia Status: Acute (10) Fracture of distal end of fibula Status: Acute (11) Hematemesis Status: Acute Priority: High (12) Jejunostomy tube site pain Status: Acute (13) Dislodged jejunostomy tube Status: Acute (14) Pancytopenia Status: Chronic - Assessment and Plan (Free Text) Plan: continue feeding via J tube Patient to proceed with chemotherapy may need repeat DML with biopsy to rule out residual disease once therapy completed nasal saline / humidification prn Patient to follow up in office once discharged
--- NOTE | 2018-02-22 17:05 | CP.PCM.PN ---
Subjective - Date & Time of Evaluation Date of Evaluation: 02/22/18 Time of Evaluation: 11:15 - Subjective Subjective: PGY-2 heme/onc progress note for Dr Kaz Cleveland No acute events noted overnight. Patient stated she was feeling much better. Still has not had a bowel movement, day 4 now, however was not able to take stool softeners po yesterday thus starting regimen today. Some discomfort on swallowing, on tube feeds. Objective - Vital Signs/Intake and Output Vital Signs (last 24 hours): Temp Pulse Resp BP Pulse Ox 98.4 F 89 16 91/63 L 96 02/22/18 14:00 02/22/18 14:00 02/22/18 14:00 02/22/18 14:00 02/22/18 14:00 - Medications Medications: Current Medications Docusate Sodium (Colace Liquid) 100 mg PO BID [facility] Last Admin: 02/22/18 09:23 Dose: 100 mg Enoxaparin Sodium (Lovenox) 30 mg SC DAILY [facility]; Protocol Last Admin: 02/22/18 09:24 Dose: 30 mg Metoclopramide HCl (Reglan) 10 mg IV ONCE PRN PRN Reason: Nausea/Vomiting Morphine Sulfate (Morphine) 5 mg IVP Q4H PRN PRN Reason: Pain, severe (8-10) Last Admin: 02/22/18 13:13 Dose: 5 mg Nystatin (Nystatin Oral Susp) 5 ml PO QID [facility] Last Admin: 02/22/18 13:13 Dose: 5 ml Pantoprazole Sodium (Protonix Inj) 40 mg IVP DAILY [facility] Last Admin: 02/22/18 09:23 Dose: 40 mg Polyethylene Glycol (Miralax) 17 gm PO DAILY PRN PRN Reason: Constipation - Labs Labs: 02/21/18 06:30 02/21/18 06:30 PT 12.4 SECONDS (9.4-12.5) 02/09/18 23:45 INR 1.09 02/09/18 23:45 APTT 31.8 Seconds (25.1-36.5) 02/09/18 23:45 - Additional Findings Additional findings: - Constitutional Appears: Well - Respiratory Exam Respiratory Exam: Clear to Ausculation Bilateral, NORMAL BREATHING PATTERN - Cardiovascular Exam Cardiovascular Exam: REGULAR RHYTHM, +S1, +S2. absent: Murmur - GI/Abdominal Exam GI & Abdominal Exam: Soft, Normal Bowel Sounds. absent: Tenderness - Extremities Exam Extremities Exam: Full ROM, Normal Capillary Refill, Normal Inspection. absent: Joint Swelling, Pedal Edema Assessment and Plan - Assessment and Plan (Free Text) Plan: Ms. Vanessa rich 52 y/o woman with pmhx signfificant for SCC of oropharynx (T4N0MO) s/p CCRT, Jtube placement who is currently in the hospital with XRT related dermatitis, and failure to thrive. SCC of oropharynx -Agree with primary team's management in increase tube feeds. -Patient has not had a BM in 4 days will optimize narcotic bowel regimen. Case discussed with Dr Kaz Cleveland
--- NOTE | 2018-02-22 21:23 | PN ---
DATE: 02/22/2018 SUBJECTIVE: The patient is seen lying in bed. She appears fatigued, she is cachectic. OBJECTIVE: GENERAL: Cachectic middle-aged lady lying in bed. VITAL SIGNS: Blood pressure 91/63, heart rate 89, respiratory rate 16, and temperature 98.4. HEENT: Normocephalic and atraumatic. Positive pallor. NECK: Supple. No JVD. LUNGS: Bilateral equal air entry, bilateral equal expansion. CARDIAC: S1 and S2, regular rate and rhythm. No murmur. No rub. ABDOMEN: Positive PEG placement, scaphoid abdomen. Bowel sounds present. EXTREMITIES: No lower extremity edema. INTAKE AND OUTPUT: Not charted. LABORATORY DATA: No labs today. CURRENT MEDICATIONS: Colace, Lovenox, MiraLax, morphine, nystatin, Protonix, and Reglan. ASSESSMENT: 1. 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 3. Cachexia. 4. Alcoholic liver cirrhosis. 5. Coagulopathy. 6. Malnutrition. PLAN: 1. Increase tube feeds as tolerated. 2. No indication for IV fluids. 3. Electrolytes within normal limits. Shanae Whyte MD
[2018-02-23] MEDS: Morphine 4 mg/ml ISec IVP PRN ×4 (01:41→14:01)
--- NOTE | 2018-02-23 02:23 | PN ---
DATE: 02/22/2018 SUBJECTIVE: The patient is a 52-year-old female. The patient was seen and examined at the bedside on 02/22/2018, looking comfortable. No fever. No chills. No hematuria or hematochezia. Abdominal pain is better. No headache. No dizziness. PHYSICAL EXAMINATION: VITAL SIGNS: Blood pressure 91/63, heart rate 89, respiratory rate 16, temperature 98.6. HEENT: Head: Normocephalic, atraumatic. Eyes: PERRLA. Extraocular muscles are intact. Conjunctivae clear. Nose patent. Mucous membranes moist. NECK: Supple. No carotid bruit. No JVD or thyromegaly. CHEST: Bilaterally symmetrical. HEART: S1 and S2, positive. LUNGS: Clear to auscultation. ABDOMEN: Soft. Bowel sounds present. No organomegaly. EXTREMITIES: No edema. No cyanosis. NEUROLOGICAL: The patient is awake and alert. Moving all 4 extremities. No focal deficit. LABORATORY DATA: We do not have recent labs today, but I reviewed old labs. MEDICATIONS: Colace, Lovenox, MiraLAX, morphine, nystatin, Protonix, Reglan. ASSESSMENT AND PLAN: Ms. Anuradha Vanessa is a 52-year-old, cachectic, middle-aged lady has locally advanced oropharyngeal cancer, radiation enteritis, dysphagia, having jejunostomy tube, alcoholic liver cirrhosis, coagulopathy, malnutrition, getting tube feeding. Pain is getting under control. Oncologist is on the case. Gastrointestinal and deep venous thrombosis prophylaxis. No acute event noted overnight. The patient is feeling much better. The patient still do not have bowel movement. Lactulose given. We will follow up. Shireen Pena MD
[2018-02-23 07:25] LABS: MEAN CELL VOLUME 96.4 fl (80.0-105.0); MEAN CORPUSCULAR HEMOGLOBIN 30.8 pg (25.0-35.0); MEAN PLATELET VOLUME 11.5 fl (7.0-11.0); RBC 3.57 10^6/uL (3.5-6.1); RED CELL DISTRIBUTION WIDTH 14.2 % (11.5-14.5); WHITE BLOOD COUNT 5.3 10^3/uL (4.5-11.0)
[2018-02-23 07:37] LABS: BLOOD UREA NITROGEN 11 mg/dL (7-21); CALCIUM 7.8 mg/dL (8.4-10.5); GFR NON-AFRICAN AMERICAN > 60
[2018-02-23 08:22] VITALS: BP 96/65; PULSE 80; RESP 18; TEMP 98.6; O2SAT 97
[2018-02-23] MEDS: Nystatin 100,000 Units/ml Oral Susp 5 ml UD PO SCH ×3 (09:16→13:55)
--- NOTE | 2018-02-23 10:01 | CP.PCM.PN ---
Subjective - Date & Time of Evaluation Date of Evaluation: 02/23/18 Time of Evaluation: 09:58 - Subjective Subjective: PGY-2 heme/onc progress note for Dr Kaz Cleveland No acute events noted overnight. Patient stated she had a semi-formed bowel movement last night. Denied being in pain. Stated she felt well. A&Ox3 breathing non labored port a cath noted on right chest wall, peg tube noted feeding osmolite running @ 40ml/hr. Objective - Vital Signs/Intake and Output Vital Signs (last 24 hours): Temp Pulse Resp BP Pulse Ox 98.6 F 80 18 96/65 L 97 02/23/18 08:21 02/23/18 08:21 02/23/18 08:21 02/23/18 08:21 02/23/18 08:21 Intake and Output: 02/23/18 02/23/18 06:59 18:59 Intake Total 0 Balance 0 - Medications Medications: Current Medications Docusate Sodium (Colace Liquid) 100 mg PO BID [facility] Last Admin: 02/22/18 17:49 Dose: 100 mg Enoxaparin Sodium (Lovenox) 30 mg SC DAILY [facility]; Protocol Last Admin: 02/22/18 09:24 Dose: 30 mg Potassium Chloride 20 meq/ (Sodium Chloride) 1,010 mls @ 0 mls/hr IV .Q0M [facility] Metoclopramide HCl (Reglan) 10 mg IV ONCE PRN PRN Reason: Nausea/Vomiting Morphine Sulfate (Morphine) 5 mg IVP Q4H PRN PRN Reason: Pain, severe (8-10) Last Admin: 02/23/18 06:06 Dose: 5 mg Nystatin (Nystatin Oral Susp) 5 ml PO QID [facility] Last Admin: 02/23/18 09:16 Dose: Not Given Pantoprazole Sodium (Protonix Inj) 40 mg IVP DAILY [facility] Last Admin: 02/22/18 09:23 Dose: 40 mg Polyethylene Glycol (Miralax) 17 gm PO DAILY PRN PRN Reason: Constipation - Labs Labs: 02/23/18 07:00 02/23/18 07:00 PT 12.4 SECONDS (9.4-12.5) 02/09/18 23:45 INR 1.09 02/09/18 23:45 APTT 31.8 Seconds (25.1-36.5) 02/09/18 23:45 - Additional Findings Additional findings: - Constitutional Appears: Well - Respiratory Exam Respiratory Exam: Clear to Ausculation Bilateral, NORMAL BREATHING PATTERN - Cardiovascular Exam Cardiovascular Exam: REGULAR RHYTHM, +S1, +S2. absent: Murmur - GI/Abdominal Exam GI & Abdominal Exam: Soft, Normal Bowel Sounds. absent: Tenderness - Extremities Exam Extremities Exam: Full ROM, Normal Capillary Refill, Normal Inspection. absent: Joint Swelling, Pedal Edema Assessment and Plan - Assessment and Plan (Free Text) Plan: Ms. Vanessa rich 52 y/o woman with pmhx signfificant for SCC of oropharynx (T4N0MO) s/p CCRT, Jtube placement who is currently in the hospital with XRT related dermatitis, and failure to thrive. SCC of oropharynx -s/p J-tube placement 02/16/2018 * continue lovenox 30mg sc qd for 30 days since procedure date -Agree with primary team's management in increase tube feeds. -Patient has not had a BM in 4 days will optimize narcotic bowel regimen * patient had a semi-formed BM last night 02/[address] Kaz Cleveland
[2018-02-23] MEDS: Enoxaparin 30 mg Syringe SC SCH (10:12)
[2018-02-23] MEDS ORDERED: Potassium Chloride 20 mEq/15 ml LIQ UD NG ONE (11:00)
--- NOTE | 2018-02-23 22:00 | PN ---
DATE: 02/23/2018 SUBJECTIVE: The patient is currently seen sitting up outside of her bed. She is dressing in preparation for discharge home. She is scheduled for discharge later today. MEDICATIONS: Medication list reviewed. The patient is on Colace, Lovenox, MiraLax, morphine, nystatin, Protonix and Reglan. OBJECTIVE: INTAKE AND OUTPUT: Not charted. VITAL SIGNS: Blood pressure 96/65, temperature 98.6, pulse of 80 with a respiratory rate of 18 and oxygen saturation of 97%. HEENT: Normocephalic, atraumatic. Conjunctivae are pink. Sclerae nonicteric. NECK: Supple. No neck vein distention. CHEST: Clear to auscultation and percussion. No rales, rhonchi or wheezing. CARDIOVASCULAR: Regular rate and rhythm without murmurs, rubs or gallops. ABDOMEN: Soft. Bowel sounds normal. PEG tube in place. EXTREMITIES: No lower extremity cyanosis, clubbing or edema. LABORATORY DATA AND IMAGING STUDIES: CBC, white blood cell count today 5.3, hemoglobin stable at 11, platelet count is 115,000. Chemistries show a sodium of 135, potassium was 3.4. The patient did receive a potassium supplement. Chloride 103 with a CO2 of 30, BUN 11 with a creatinine of 0.3. Calcium 7.8. Albumin level was 2.3, so calcium level corrects to normal. Glucose is 121. Last phosphorus level was 4. Last magnesium level was 2. Microbiology, no cultures were sent. ASSESSMENT: 1. Squamous cell carcinoma of the oropharynx. Status post conformal radiation therapy. 2. History of radiation enteritis. 3. History of cachexia. The patient has a percutaneous endoscopic gastrostomy tube in place for feedings. 4. History of alcoholic cirrhosis. 5. History of coagulopathy. 6. Malnutrition. 7. Status post hyponatremia. Sodium was as low as 129, is currently 135. 8. Status post hypokalemia. Potassium was 2.6, it is currently in the 3.4 to 3.5 range. 9. Status post hypomagnesemia and status post hypophosphatemia. PLAN: 1. As per the other physicians taking care of her, the patient will have increased tube feedings upon discharge. Her electrolytes are currently stable. 2. No contraindication for discharge from renal standpoint. New Pepper MD [facility] # [id number]
--- NOTE | 2018-03-02 09:01 | PQF ---
PROVIDER RESPONSE TEXT: Moderate malnutrition requiring placement of peg tube from significant odynophagia from underlying st ge four supraglottic laryngeal ca REVIEWER QUERY TEXT: Malnutrition Severity Malnutrition is documented in the Medical Record. Please specify the severity Such as: -- Mild - first degree -- Moderate - second degree -- Severe - third degree -- Severe malnutrition with marasmus -- Other, please specify The patient's Clinical Indicators include: Pt was cachexic with BMI =13 and failure to thrive. Was put in PPn/TPN Query created by: Norma Ortiz on 02/24/2018 8:06 AM Electronically signed by: Loni Cleveland MD 03/02/2018 8:58 AM
== END 2018-02-23 17:58 | disposition home health service (06) | DRG 552 ==
LOC: ED 22:31 → ERH 23:53 → 5RSO 02-10 02:59
PROVIDERS: ADMIT Internal Medicine; ATTEND Internal Medicine
PROC: 3E0H7KZ Introduction of Other Diagnostic Substance into Lower GI, Via Natural or Artificial Opening (ICD-10-PCS; 2018-02-10)
PROC: 3E0336Z Introduction of Nutritional Substance into Peripheral Vein, Percutaneous Approach (ICD-10-PCS; principal; 2018-02-12)
PROC: 30233N1 Transfusion of Nonautologous Red Blood Cells into Peripheral Vein, Percutaneous Approach (ICD-10-PCS; 2018-02-12)
PROC: 30233R1 Transfusion of Nonautologous Platelets into Peripheral Vein, Percutaneous Approach (ICD-10-PCS; 2018-02-16)
DX: K94.13 Enterostomy malfunction (principal); K70.30 Alcoholic cirrhosis of liver without ascites; E44.0 Moderate protein-calorie malnutrition; E87.6 Hypokalemia; D61.818 Other pancytopenia; J44.9 Chronic obstructive pulmonary disease, unspecified; R64 Cachexia; K52.0 Gastroenteritis and colitis due to radiation; F14.90 Cocaine use, unspecified, uncomplicated; E87.1 Hypo-osmolality and hyponatremia; E87.8 Other disorders of electrolyte and fluid balance, not elsewhere classified; C32.1 Malignant neoplasm of supraglottis; C10.9 Malignant neoplasm of oropharynx, unspecified; F32.9 Major depressive disorder, single episode, unspecified; D63.8 Anemia in other chronic diseases classified elsewhere; F41.9 Anxiety disorder, unspecified; R13.10 Dysphagia, unspecified; F10.10 Alcohol abuse, uncomplicated; I95.9 Hypotension, unspecified; R62.7 Adult failure to thrive; M06.9 Rheumatoid arthritis, unspecified; L59.8 Other specified disorders of the skin and subcutaneous tissue related to radiation; J34.89 Other specified disorders of nose and nasal sinuses; Y84.2 Radiological procedure and radiotherapy as the cause of abnormal reaction of the patient, or of later complication, without mention of misadventure at the time of the procedure; Z92.3 Personal history of irradiation; Z91.19 Patient's noncompliance with other medical treatment and regimen; Z92.21 Personal history of antineoplastic chemotherapy; Z68.1 Body mass index [BMI] 19.9 or less, adult

== ENCOUNTER 2018-04-27 13:58 | Outpatient (CLI) | payer OTHER | END 2018-04-27 13:59 | disposition home or self-care (01) | LOC: OPLAB 13:58 ==

== ENCOUNTER 2018-05-11 18:07 | Outpatient (CLI) | payer OTHER | END 2018-05-11 18:08 | disposition home or self-care (01) | LOC: OPLAB 18:07 ==

== ENCOUNTER 2018-06-08 08:15 | Inpatient (IN) | payer OTHER ==
--- NOTE | 2018-06-08 08:43 | ED PDOC ---
Arrival/HPI - General Chief Complaint: GI Problem Time Seen by Provider: 06/08/18 08:29 Historian: Patient - History of Present Illness Narrative History of Present Illness (Text): 06/08/18 08:29 Anuradha Vanessa is a 52 year old female, with a past medical history of esophageal cancer, alcohol abuse, and drug abuse, who presents to the emergency department complaining of displaced gastrostomy tube. Patient informs tube fell out last night between 21:30 - 22:00. She appreciates pain to site after attempting to push tube back into place. Patient appreciates chills last night but denies fevers, nausea, or vomiting. Patient informs taking Tylenol for pain. Patient denies chest pain, shortness of breath, headache, cough, dizziness, lightheadedness, abdominal pain, back pain, hematochezia, melena, or diarrhea. Time/Duration: Other (Yesterday between 21:30 - 22:00) Symptom Onset: Sudden Activities at Onset: Light Context: Home Past Medical History - Provider Review Nursing Documentation Reviewed: Yes - Infectious Disease Hx of Infectious Diseases: None - Tetanus Immunization Tetanus Immunization: Unknown - Cardiac Hx Cardiac Disorders: No - Pulmonary Hx Respiratory Disorders: No - Neurological Hx Neurological Disorder: No - HEENT Other/Comment: dysphagia. SCC Hypopharynx - Renal Hx Renal Disorder: No - Endocrine/Metabolic Hx Endocrine Disorders: No - Hematological/Oncological Hx Blood Transfusions: Yes Hx Blood Transfusion Reaction: No - Integumentary Hx Dermatological Disorder: Yes - Musculoskeletal/Rheumatological Hx Falls: No - Gastrointestinal Hx Gastrointestinal Disorders: Yes Other/Comment: GI tube - Genitourinary/Gynecological Hx Genitourinary Disorders: No - Psychiatric Hx Anxiety: Yes Hx Depression: Yes Hx Substance Use: No - Surgical History Other/Comment: + g tube - Anesthesia Hx Anesthesia Reactions: No Hx Malignant Hyperthermia: No - Suicidal Assessment Feels Threatened In Home Enviroment: No Family/Social History - Physician Review Nursing Documentation Reviewed: Yes Family/Social History: Neoplasm/Cancer (Father: esophageal) Smoking Status: Never Smoked Hx Alcohol Use: Yes Amount per day: 6 Hx Substance Use: No Hx Substance Use Treatment: No Allergies/Home Meds Allergies/Adverse Reactions: Allergies No Known Allergies Allergy (Verified 06/08/18 14:16) Review of Systems - Review of Systems Constitutional: Other (chills). absent: Fevers Respiratory: absent: SOB, Cough Cardiovascular: absent: Chest Pain Gastrointestinal: Abdominal Pain (secondary to displaced gastrostomy tube). absent: Diarrhea, Hematochezia, Other (melena) Neurological: absent: Headache, Dizziness Physical Exam Vital Signs Reviewed: Yes Vital Signs Temp Pulse Resp BP Pulse Ox 06/08/18 08:16 98.8 F 98 H 18 117/77 96 Temperature: Afebrile Blood Pressure: Normal Pulse: Regular Respiratory Rate: Normal Appearance: Positive for: Well-Appearing, Non-Toxic, Comfortable Pain Distress: None Mental Status: Positive for: Alert and Oriented X 3 - Systems Exam Head: Present: Atraumatic, Normocephalic Pupils: Present: PERRL Extroacular Muscles: Present: EOMI Conjunctiva: Present: Normal Mouth: Present: Moist Mucous Membranes Neck: Present: Normal Range of Motion Respiratory/Chest: Present: Clear to Auscultation, Good Air Exchange, Other (metiport in right upper chest wall). No: Respiratory Distress, Accessory Muscle Use, Wheezes, Rales, Rhonchi Cardiovascular: Present: Regular Rate and Rhythm, Normal S1, S2. No: Murmurs, Rub, Gallop Abdomen: Present: Tenderness (diffuse, greater at site of PEG tube), Normal Bowel Sounds, Feeding Tubes (surrounding area erythmatous and swollen. Purulent discharge surrounding insertion site.). No: Distention, Peritoneal Signs Back: Present: Normal Inspection Upper Extremity: Present: Normal Inspection. No: Cyanosis, Edema Lower Extremity: Present: Normal Inspection. No: Edema Neurological: Present: GCS=15, CN II-XII Intact, Speech Normal Skin: Present: Warm, Dry, Normal Color. No: Rashes Psychiatric: Present: Alert, Oriented x 3, Normal Insight, Normal Concentration Medical Decision Making ED Course and Treatment: 06/08/18 08:29 Impression: Anuradha Vanessa is a 52 year old female, with a past medical history of esophageal cancer, alcohol abuse, and drug abuse, who presents to the emergency department complaining of displaced PEG tube. Plan: -- Labs -- Morphine -- IV Fluids -- POC Urine -- Abdomen Flat Plate -- Urinalysis -- Reassess and disposition Prior Visits: Notes and results from previous visits were reviewed. Progress Notes: 06/08/18 11:05 Per nurse, patient's states her PEG tube was displaced when she went to use the restroom in the ED. 06/08/18 11:[address] Pena, who requests admission to hospitalist's service. 06/08/18 11:[address] Rivas (hospitalist), who accepts patient to his service. - Scribe Statement The provider has reviewed the documentation as recorded by the Scribe Gee Smith All medical record entries made by the Scribe were at my direction and personally dictated by me. I have reviewed the chart and agree that the record accurately reflects my personal performance of the history, physical exam, medical decision making, and the department course for this patient. I have also personally directed, reviewed, and agree with the discharge instructions and disposition. Disposition/Present on Arrival - Present on Arrival Any Indicators Present on Arrival: No History of DVT/PE: No History of Uncontrolled Diabetes: No Urinary Catheter: No History of Decub. Ulcer: No History Surgical Site Infection Following: None - Disposition Have Diagnosis and Disposition been Completed?: Yes Diagnosis: Dislodged jejunostomy tube, Jejunostomy tube site pain, Infection of gastrostomy site Disposition: HOSPITALIZED Disposition Time: 11:20 Patient Plan: Admission Condition: STABLE
[2018-06-08] MEDS ORDERED: Sodium Chloride 0.9% 1,000 ML IV STA (08:44)
[2018-06-08] MEDS ORDERED: Morphine 2 mg/ml ISec IVP STA ×2 (08:46→13:19)
[2018-06-08 08:48] VITALS: BMI 14.6
[2018-06-08] MEDS ORDERED: Iohexol 300 100 ML IJ ONE (08:57)
[2018-06-08 09:29] LABS: BASO # 0.01 K/mm3 (0.0-2.0); BASO % 0.1 % (0.0-3.0); EOS # 0.1 (0.0-0.7); EOS % 0.8 % (1.5-5.0); HEMOGLOBIN 13.3 g/dL (12.0-16.0); LYMPH # 0.7 (1.2-3.4); LYMPH % 8.6 % (22.0-35.0); MEAN CELL VOLUME 97.3 fl (80.0-105.0); MEAN CORPUSCULAR HGB CONC 33.9 g/dl (31.0-37.0); MEAN PLATELET VOLUME 10.3 fl (7.0-11.0); MONO # 0.8 (0.1-0.6); MONO % 9.1 % (1.0-6.0); RBC 4.03 10^6/uL (3.5-6.1); RED CELL DISTRIBUTION WIDTH 14.3 % (11.5-14.5); WHITE BLOOD COUNT 8.5 10^3/uL (4.5-11.0)
[2018-06-08 09:37] LABS: ALB/GLOB RATIO 1.1 (1.1-1.8); ALBUMIN 2.7 g/dL (3.0-4.8); ALT/SGPT 16 U/L (7-56); AST/SGOT 24 U/L (14-36); BLOOD UREA NITROGEN 6 mg/dL (7-21); CALCIUM 7.9 mg/dL (8.4-10.5); GFR NON-AFRICAN AMERICAN > 60; LIPASE 154 U/L (23-300)
[2018-06-08 09:39] LABS: INR 1.11; PARTIAL THROMBOPLASTIN TIME 44.1 Seconds (26.9-38.3); PROTHROMBIN TIME 12.5 SECONDS (9.4-12.5)
[2018-06-08] MEDS ORDERED: Potassium Chloride 20 mEq ER Tab PO STA (09:40)
--- NOTE | 2018-06-08 09:57 | RAD ---
Date of service: 06/08/2018 HISTORY: w/gastrografin to check tube placement COMPARISON: None available. TECHNIQUE: 1 view obtained. FINDINGS: BOWEL: Normal. No obstruction. No free air. Contrast is seen within the catheter and within the lumen of the small bowel in the left lower quadrant. The tube is in satisfactory position BONES: Normal. OTHER FINDINGS: None. IMPRESSION: Contrast is seen within the catheter and within the lumen of the small bowel in the left lower quadrant. The tube is in satisfactory position
[2018-06-08 11:19] LABS: PH,URINE 5.5 (4.7-8.0); URINE BILIRUBIN NEGATIVE (NEGATIVE); URINE BLOOD NEGATIVE (NEGATIVE); URINE GLUCOSE (UA) NEGATIVE (NEGATIVE); URINE LEUKOCYTE ESTERASE NEGATIVE Leu/uL (NEGATIVE); URINE PROTEIN NEGATIVE mg/dL (<30 mg/dL); URINE UROBILINOGEN 0.2 E.U./dL (<1 E.U./dL)
[2018-06-08 11:20] LABS: URINE APPEARANCE CLEAR (CLEAR); URINE COLOR LIGHT YELLOW (YELLOW)
[2018-06-08 11:43] LABS: BARBITURATES, UR NEGATIVE (NEGATIVE); BENZODIAZEPINES, UR NEGATIVE (NEGATIVE); OPIATES, UR POSITIVE (NEGATIVE); PHENCYCLIDINE, UR NEGATIVE (NEGATIVE)
--- NOTE | 2018-06-08 11:49 | CP.PCM.HP ---
<Jenny Barrientos - Last Filed: 06/08/18 14:28> History of Present Illness - History of Present Illness History of Present Illness: Pgy3 Hospitalist H&P for Dr. Rivas 52yo female PMHx squamous cell carcinoma of the oropharynx last staged at T4N0M0 from 12/2017 status post G tube placement in 10/2017 and 02/2018, malnutrition, history of alcohol abuse, cirrhosis, thrombocytopenia, hypotension, anemia of chronic disease, depression, and anxiety presents with dislodged G tube for 1 day. Patient reports she caught her G tube on something earlier today and dislodged it. She uses G tube for tube feeds due to severe dysphagia and need for nutritional access. She admitted to tenderness around the G tube site but denies all other ROS of fever, chills, headache, dizziness, chest pain, palpitations, SOB, cough, nausea, vomiting, bowel/bladder complaints, pain/swelling in her legs b/l. Patient is adamant that she does not want surgery. Patient has had 3 of 6 rounds of chemotherapy [last round Feb 2018] and 30+ rounds of radiation. Patient does admit to depression but denies any suicida/homicidal ideations and auditory/visual hallucinations PMH: squamous cell carcinoma of the oropharynx last staged at T4N0M0 from 12/2017 status post G tube placement in 10/2017 and 02/2018, malnutrition, history of alcohol abuse, cirrhosis, thrombocytopenia, hypotension, anemia of chronic disease, depression, and anxiety PSH: ankle surgery in 2017, G tube placement in 10/2017 and 02/2018 FMHx: Mother from [place]. Father from throat cancer SHx: Patient denies tobacco use. Patient reports drinking more than 5 drinks daily for 20 years. Patient recently stopped drinking this past October. Patient reports using cocaine for 4-5 years from [age] or 23 Allergies: NKDA Meds: pls see chart PMD: Dr. Pena Oncology: Dr. Cleveland [place] [facility] [place] Present on Admission - Present on Admission Any Indicators Present on Admission: No Review of Systems - Review of Systems All systems: reviewed and no additional remarkable complaints except Review of Systems: as per HPI Past Patient History - Infectious Disease Hx of Infectious Diseases: None - Tetanus Immunizations Tetanus Immunization: Unknown - Past Medical History & Family History Past Medical History?: Yes - Past Social History Smoking Status: Never Smoked - CARDIAC Hx Cardiac Disorders: No - PULMONARY Hx Respiratory Disorders: No - NEUROLOGICAL Hx Neurological Disorder: No - HEENT Other/Comment: dysphagia. SCC Hypopharynx - RENAL Hx Chronic Kidney Disease: No - ENDOCRINE/METABOLIC Hx Endocrine Disorders: No - HEMATOLOGICAL/ONCOLOGICAL Hx Blood Transfusions: Yes Hx Blood Transfusion Reaction: No - INTEGUMENTARY Hx Dermatological Problems: Yes - MUSCULOSKELETAL/RHEUMATOLOGICAL Hx Falls: No - GASTROINTESTINAL Hx Gastrointestinal Disorders: Yes Other/Comment: GI tube - GENITOURINARY/GYNECOLOGICAL Hx Genitourinary Disorders: No - PSYCHIATRIC Hx Anxiety: Yes Hx Depression: Yes Hx Substance Use: No - SURGICAL HISTORY Other/Comment: + g tube - ANESTHESIA Hx Anesthesia Reactions: No Hx Malignant Hyperthermia: No Meds Allergies/Adverse Reactions: Allergies Allergy/AdvReac Type Severity Reaction Status Date / Time No Known Allergies Allergy Verified 06/08/18 14:16 Physical Exam - Constitutional Appears: Non-toxic, No Acute Distress, Cachectic, Chronically Ill - Head Exam Head Exam: ATRAUMATIC, NORMAL INSPECTION, NORMOCEPHALIC - Eye Exam Eye Exam: EOMI, Normal appearance. absent: Conjunctival injection, Scleral icterus - ENT Exam ENT Exam: Mucous Membranes Dry - Respiratory Exam Respiratory Exam: Clear to Auscultation Bilateral, NORMAL BREATHING PATTERN. absent: Accessory Muscle Use, Rales, Rhonchi, Wheezes - Cardiovascular Exam Cardiovascular Exam: REGULAR RHYTHM, +S1, +S2 - GI/Abdominal Exam GI & Abdominal Exam: Soft, Tenderness (around PEG site). absent: Firm, Rigid Additional comments: PEG in place dressings c/d/i - Extremities Exam Extremities exam: Positive for: normal capillary refill, normal inspection, pedal pulses present. Negative for: pedal edema - Neurological Exam Neurological exam: Alert, CN II-XII Intact, Oriented x3 - Psychiatric Exam Psychiatric exam: Anxious - Skin Skin Exam: Dry, Warm Results - Vital Signs Recent Vital Signs: Last Vital Signs Temp 98.8 F 06/08/18 08:16 Pulse 97 H 06/08/18 11:00 Resp 16 06/08/18 11:00 BP 109/70 06/08/18 11:00 Pulse Ox 96 06/08/18 11:00 - Labs Result Diagrams: 06/08/18 09:11 06/08/18 09:11 Labs: Laboratory Results - last 24 hr 06/08/18 06/08/18 06/08/18 09:11 09:11 09:11 WBC 8.5 D RBC 4.03 Hgb 13.3 D Hct 39.2 MCV 97.3 MCH 33.0 MCHC 33.9 RDW 14.3 Plt Count 75 L MPV 10.3 Neut % (Auto) 81.4 H Lymph % (Auto) 8.6 L [place] % (Auto) 9.1 H Eos % (Auto) 0.8 L Baso % (Auto) 0.1 Lymph # (Auto) 0.7 L [place] # (Auto) 0.8 H Eos # (Auto) 0.1 Baso # (Auto) 0.01 Absolute Neuts (auto) 6.92 H PT 12.5 INR 1.11 APTT 44.1 H Sodium 134 Potassium 3.2 L Chloride 103 Carbon Dioxide 26 Anion Gap 9 L BUN 6 L Creatinine 0.5 L Est GFR ( Amer) > 60 Est GFR (Non-Af Amer) > 60 Random Glucose 98 Calcium 7.9 L Magnesium 1.7 Total Bilirubin 0.3 AST 24 ALT 16 Alkaline Phosphatase 72 Total Protein 5.2 L Albumin 2.7 L Globulin 2.5 Albumin/Globulin Ratio 1.1 Lipase 154 Urine Color Urine Appearance Urine pH Ur Specific [place] Urine Protein Urine Glucose (UA) Urine Ketones Urine Blood Urine Nitrate Urine Bilirubin Urine Urobilinogen Ur Leukocyte Esterase Urine Opiates Screen Urine Methadone Screen Ur Barbiturates Screen Ur Phencyclidine Scrn Ur Amphetamines Screen U Benzodiazepines Scrn U Oth Cocaine Metabols U Cannabinoids Screen 06/08/18 06/08/18 11:08 11:08 WBC RBC Hgb Hct MCV MCH MCHC RDW Plt Count MPV Neut % (Auto) Lymph % (Auto) [place] % (Auto) Eos % (Auto) Baso % (Auto) Lymph # (Auto) [place] # (Auto) Eos # (Auto) Baso # (Auto) Absolute Neuts (auto) PT INR APTT Sodium Potassium Chloride Carbon Dioxide Anion Gap BUN Creatinine Est GFR ( Amer) Est GFR (Non-Af Amer) Random Glucose Calcium Magnesium Total Bilirubin AST ALT Alkaline Phosphatase Total Protein Albumin Globulin Albumin/Globulin Ratio Lipase Urine Color Light yellow Urine Appearance Clear Urine pH 5.5 Ur Specific [place] <= 1.005 Urine Protein Negative Urine Glucose (UA) Negative Urine Ketones Negative Urine Blood Negative Urine Nitrate Negative Urine Bilirubin Negative Urine Urobilinogen 0.2 Ur Leukocyte Esterase Negative Urine Opiates Screen Positive H Urine Methadone Screen Negative Ur Barbiturates Screen Negative Ur Phencyclidine Scrn Negative Ur Amphetamines Screen Negative U Benzodiazepines Scrn Negative U Oth Cocaine Metabols Negative U Cannabinoids Screen Negative Assessment & Plan - Assessment and Plan (Free Text) Assessment: 52yo female presents with dislodged G tube for 1 day 1. Dislodged G tube 2. Malnutrition 3. Squamous cell carcinoma of the oropharynx last staged at T4N0M0 4. Hx EtOH abuse 5. Hx Alcoholic liver cirrhosis 6. Thrombocytopenia 7. Anemia of chronic disease 8. Depression 9. Anxiety Plan: Patient's vitals, blood work, and imaging noted in chart. Surgery Dr. Ruiz consulted and G tube replaced by surgical technologist at bedside. Will f/u tube study and will start tube feeds after confirmation of tube placement. Patient was osmolite on prior admission and will start at rate 30cc/hr. Dietary consulted- appreciate reccs. Will apply topical polymyxin ointment for patient around area of PEG tube which looks irritated. No need for IV abx at this time. In light of history of EtOH in the past, will f/u alcohol level. UTox positive for opiates. Patient has known history of thrombocytopenia likely secondary to EtOH use. No active signs of bleeding; will continue to monitor closely. Will continue to monitior H&H in light of patient's history of anemia of chronic disease. Psych on consult for patient's complaints of depression. Will continue home med xanax for anxiety. Will continue supplement multivitamin, folic acid, and thiamine via PEG tube. GI ppx with Pepcid daily and DVT ppx with SCDs. Will have patient be seen by physical therapy for deconditioning. Will continue to monitor closely at this time. Discussed with Dr. Rob Barrientos PGY3 <Aden Rivas - Last Filed: 06/10/18 18:33> Results - Vital Signs Recent Vital Signs: Last Vital Signs Temp 98.2 F 06/09/18 16:26 Pulse 81 06/09/18 16:26 Resp 18 06/09/18 16:26 BP 98/71 L 06/09/18 16:26 Pulse Ox 98 06/09/18 16:26 - Labs Result Diagrams: 06/09/18 06:30 06/09/18 06:30 Attending/Attestation - Attestation I have personally seen and examined this patient.: Yes I have fully participated in the care of the patient.: Yes I have reviewed all pertinent clinical information: Yes
[2018-06-08] MEDS ORDERED: Clindamycin 600mg/50ml D5W 600 MG/50 ML VIAL IVPB STA (11:55)
[2018-06-08] MEDS ORDERED: Iohexol 350 MG/100 ML VIAL ONE (14:03)
--- NOTE | 2018-06-08 14:11 | CP.PCM.CON ---
History of Present Illness - History of Present Illness History of Present Illness: General surgery consult note for Dr. Arminda Kwan, PGY-2 Pt seen/examined at bedside. 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 Pt reports that she caught her G tube on something earlier today and dislodged it. She uses G tube for tube feeds due to severe dysphagia and need for nutritional access. Denies N & V, F & C, SOB, other complaints. PMH: esophageal CA PSH: G tube placement, hernia repair All: NKDA SH: ETOH abuse, drug abuse FH: Father was a group home tobacco user Review of Systems - Review of Systems All systems: reviewed and no additional remarkable complaints except - Constitutional Constitutional: absent: Chills, Fever - EENT Nose/Mouth/Throat: Dysphagia - Cardiovascular Cardiovascular: absent: Chest Pain - Gastrointestinal Gastrointestinal: absent: Abdominal Pain, Nausea, Vomiting - Genitourinary Genitourinary: absent: Hematuria - Integumentary Integumentary: absent: New Lesions - Neurological Neurological: absent: Weakness Past Patient History - Infectious Disease Hx of Infectious Diseases: None - Tetanus Immunizations Tetanus Immunization: Unknown - Past Medical History & Family History Past Medical History?: Yes - Past Social History Smoking Status: Never Smoked - CARDIAC Hx Cardiac Disorders: No - PULMONARY Hx Respiratory Disorders: No - NEUROLOGICAL Hx Neurological Disorder: No - HEENT Other/Comment: dysphagia. SCC Hypopharynx - RENAL Hx Chronic Kidney Disease: No - ENDOCRINE/METABOLIC Hx Endocrine Disorders: No - HEMATOLOGICAL/ONCOLOGICAL Hx Blood Transfusions: Yes Hx Blood Transfusion Reaction: No - INTEGUMENTARY Hx Dermatological Problems: Yes - MUSCULOSKELETAL/RHEUMATOLOGICAL Hx Falls: No - GASTROINTESTINAL Hx Gastrointestinal Disorders: Yes Other/Comment: GI tube - GENITOURINARY/GYNECOLOGICAL Hx Genitourinary Disorders: No - PSYCHIATRIC Hx Anxiety: Yes Hx Depression: Yes Hx Substance Use: No - SURGICAL HISTORY Other/Comment: + g tube - ANESTHESIA Hx Anesthesia Reactions: No Hx Malignant Hyperthermia: No Physical Exam - Constitutional Appears: Non-toxic, No Acute Distress, Cachectic - Head Exam Head Exam: NORMAL INSPECTION, NORMOCEPHALIC - Eye Exam Eye Exam: EOMI - ENT Exam ENT Exam: Mucous Membranes Moist, Normal Exam - Neck Exam Neck exam: Positive for: Full Rom - Respiratory Exam Respiratory Exam: NORMAL BREATHING PATTERN - Cardiovascular Exam Cardiovascular Exam: REGULAR RHYTHM, +S1, +S2 - GI/Abdominal Exam GI & Abdominal Exam: Soft, Tenderness (around G tube insertion site, no fluctuance or induration). absent: Distended, Firm, Guarding - Extremities Exam Extremities exam: Positive for: normal inspection - Neurological Exam Neurological exam: Alert, CN II-XII Intact, Oriented x3 - Psychiatric Exam Psychiatric exam: Normal Affect, Normal Mood - Skin Skin Exam: Dry, Intact, Normal Color, Warm Results - Vital Signs Recent Vital Signs: Last Vital Signs Temp 98.8 F 06/08/18 08:16 Pulse 86 06/08/18 13:00 Resp 16 06/08/18 13:00 BP 101/69 06/08/18 13:00 Pulse Ox 95 06/08/18 13:00 - Labs Result Diagrams: 06/08/18 09:11 06/08/18 09:11 Labs: Laboratory Results - last 24 hr 06/08/18 06/08/18 06/08/18 09:11 09:11 09:11 WBC 8.5 D RBC 4.03 Hgb 13.3 D Hct 39.2 MCV 97.3 MCH 33.0 MCHC 33.9 RDW 14.3 Plt Count 75 L MPV 10.3 Neut % (Auto) 81.4 H Lymph % (Auto) 8.6 L [place] % (Auto) 9.1 H Eos % (Auto) 0.8 L Baso % (Auto) 0.1 Lymph # (Auto) 0.7 L [place] # (Auto) 0.8 H Eos # (Auto) 0.1 Baso # (Auto) 0.01 Absolute Neuts (auto) 6.92 H PT 12.5 INR 1.11 APTT 44.1 H Sodium 134 Potassium 3.2 L Chloride 103 Carbon Dioxide 26 Anion Gap 9 L BUN 6 L Creatinine 0.5 L Est GFR ( Amer) > 60 Est GFR (Non-Af Amer) > 60 Random Glucose 98 Calcium 7.9 L Magnesium 1.7 Total Bilirubin 0.3 AST 24 ALT 16 Alkaline Phosphatase 72 Total Protein 5.2 L Albumin 2.7 L Globulin 2.5 Albumin/Globulin Ratio 1.1 Lipase 154 Urine Color Urine Appearance Urine pH Ur Specific [place] Urine Protein Urine Glucose (UA) Urine Ketones Urine Blood Urine Nitrate Urine Bilirubin Urine Urobilinogen Ur Leukocyte Esterase Urine Opiates Screen Urine Methadone Screen Ur Barbiturates Screen Ur Phencyclidine Scrn Ur Amphetamines Screen U Benzodiazepines Scrn U Oth Cocaine Metabols U Cannabinoids Screen 06/08/18 06/08/18 11:08 11:08 WBC RBC Hgb Hct MCV MCH MCHC RDW Plt Count MPV Neut % (Auto) Lymph % (Auto) [place] % (Auto) Eos % (Auto) Baso % (Auto) Lymph # (Auto) [place] # (Auto) Eos # (Auto) Baso # (Auto) Absolute Neuts (auto) PT INR APTT Sodium Potassium Chloride Carbon Dioxide Anion Gap BUN Creatinine Est GFR ( Amer) Est GFR (Non-Af Amer) Random Glucose Calcium Magnesium Total Bilirubin AST ALT Alkaline Phosphatase Total Protein Albumin Globulin Albumin/Globulin Ratio Lipase Urine Color Light yellow Urine Appearance Clear Urine pH 5.5 Ur Specific [place] <= 1.005 Urine Protein Negative Urine Glucose (UA) Negative Urine Ketones Negative Urine Blood Negative Urine Nitrate Negative Urine Bilirubin Negative Urine Urobilinogen 0.2 Ur Leukocyte Esterase Negative Urine Opiates Screen Positive H Urine Methadone Screen Negative Ur Barbiturates Screen Negative Ur Phencyclidine Scrn Negative Ur Amphetamines Screen Negative U Benzodiazepines Scrn Negative U Oth Cocaine Metabols Negative U Cannabinoids Screen Negative Assessment & Plan - Assessment and Plan (Free Text) Assessment: 52F w/PMH sig for esophageal CA s/p G tube placement with subsequent replacement of dislodged G tube at bedside in ED Plan: G tube replaced at bedside in ED FU tube study Further recs pending imaging results DW Dr. Joseph Kwan, PGY-2 - Date & Time Date: 06/08/18 Time: 14:09
--- NOTE | 2018-06-08 14:44 | RAD ---
Date of service: 06/08/2018 HISTORY: gastrografin for tube placement COMPARISON: Earlier same day TECHNIQUE: 1 view obtained. FINDINGS: BOWEL: There is a balloon tipped catheter in the small bowel on the left side of the abdomen. There contrast in the lumen of the small bowel. There is no evidence of extravasation. Contrast is seen in the colon from a earlier injection BONES: Normal. OTHER FINDINGS: None. IMPRESSION: There is a balloon tipped catheter in the small bowel on the left side of the abdomen. There is contrast in the lumen of the small bowel. There is no evidence of extravasation. Contrast is seen in the colon from an earlier injection
[2018-06-08] MEDS: Folic Acid 1 MG, Thiamine 100 MG, Multivitamin (MVI) 10 ML in Dextrose 5% In Water 1,00... IV SCH (17:12)
[2018-06-08] MEDS: Bacitracin/Neomycin/Polymyxin Oint(30GM) TOP SCH ×2 (17:12→21:48)
[2018-06-08] MEDS ORDERED: Pneumococcal 23-Valent Vaccine IM ONE (17:34)
[2018-06-08] MEDS: Morphine 2 mg/ml ISec IVP PRN (19:48)
[2018-06-09] MEDS: Morphine 2 mg/ml ISec IVP PRN ×3 (01:11→16:05)
[2018-06-09] MEDS: Folic Acid 1 MG, Thiamine 100 MG, Multivitamin (MVI) 10 ML in Dextrose 5% In Water 1,00... IV SCH ×2 (02:25→13:54)
[2018-06-09] MEDS: Bacitracin/Neomycin/Polymyxin Oint(30GM) TOP SCH ×3 (02:26→14:10)
[2018-06-09] MEDS ORDERED: Morphine 2 mg/ml ISec IVP STA (04:01)
[2018-06-09 06:54] LABS: BASO # 0.01 K/mm3 (0.0-2.0); BASO % 0.3 % (0.0-3.0); EOS # 0.2 (0.0-0.7); EOS % 3.9 % (1.5-5.0); HEMOGLOBIN 12.5 g/dL (12.0-16.0); LYMPH # 0.5 (1.2-3.4); LYMPH % 11.6 % (22.0-35.0); MEAN CELL VOLUME 99.2 fl (80.0-105.0); MEAN CORPUSCULAR HEMOGLOBIN 32.7 pg (25.0-35.0); MONO # 0.4 (0.1-0.6); MONO % 10.9 % (1.0-6.0); RBC 3.82 10^6/uL (3.5-6.1); RED CELL DISTRIBUTION WIDTH 14.6 % (11.5-14.5); WHITE BLOOD COUNT 3.9 10^3/uL (4.5-11.0)
[2018-06-09 07:21] LABS: ALBUMIN 2.4 g/dL (3.0-4.8); ALT/SGPT 17 U/L (7-56); AST/SGOT 19 U/L (14-36); BLOOD UREA NITROGEN 5 mg/dL (7-21); CALCIUM 7.6 mg/dL (8.4-10.5); GFR NON-AFRICAN AMERICAN > 60
[2018-06-09 07:53] VITALS: RESP 18
[2018-06-09] MEDS ORDERED: Multi Vitamins 15 mL UD Oral Solution PEG SCH (10:00)
[2018-06-09] MEDS ORDERED: Iohexol 240 (50 ml) ONE (11:55)
--- NOTE | 2018-06-09 12:39 | RAD ---
Date of service: 06/09/2018 HISTORY: adm gastrograffin through g-tube, confirm placemen COMPARISON: Earlier same day TECHNIQUE: 1 view obtained. FINDINGS: BOWEL: Contrast was injected through the G-tube. The contrast can be seen in the small bowel. The balloon tip is inflated. BONES: Normal. OTHER FINDINGS: None. IMPRESSION: Contrast was injected through the G-tube. The contrast can be seen in the small bowel. The balloon tip is inflated.
--- NOTE | 2018-06-09 12:40 | RAD ---
Date of service: 06/09/2018 HISTORY: evaluate feeding tube placement COMPARISON: 06/08/2018 TECHNIQUE: 1 view obtained. FINDINGS: BOWEL: Residual contrast can be seen in the colon. The balloon tip catheter can be seen in the left lower quadrant BONES: Normal. OTHER FINDINGS: None. IMPRESSION: Residual contrast can be seen in the colon. The balloon tip catheter can be seen in the left lower quadrant
--- NOTE | 2018-06-09 13:24 | CP.PCM.PN ---
Subjective - Date & Time of Evaluation Date of Evaluation: 06/09/18 Time of Evaluation: 10:30 - Subjective Subjective: General surgery progress note for Dr. Joseph iWllis, PGY1 Patient seen and examined at bedside. G-tube replaced this morning. Patient denies any new complaints at this time. She denies nausea, vomiting, fevers, headaches, SOB and CP. Objective - Vital Signs/Intake and Output Vital Signs (last 24 hours): Temp Pulse Resp BP Pulse Ox 98.3 F 70 18 99/67 L 698 H 06/09/18 07:52 06/09/18 07:52 06/09/18 07:52 06/09/18 07:52 06/09/18 07:52 Intake and Output: 06/09/18 06/09/18 06:59 18:59 Intake Total 0 Balance 0 - Medications Medications: Current Medications Alprazolam (Xanax) 0.5 mg PEG BID PRN; Protocol PRN Reason: Anxiety Famotidine (Pepcid) 20 mg IVP DAILY [facility] Folic Acid (Folic Acid) 1 mg JT DAILY [facility] Folic Acid 1 mg/ Thiamine HCl 100 mg/ Multivitamins/Vitamin C 10 ml/ Dextrose 1,011.2 mls @ 100 mls/hr IV .Q10H7M [facility] Last Admin: 06/09/18 02:25 Dose: 100 mls/hr Lorazepam (Ativan) 1 mg IVP Q6H PRN; Protocol PRN Reason: Symptoms of alcohol withdrawl Morphine Sulfate (Morphine) 1 mg IVP Q6H PRN PRN Reason: Pain, severe (8-10) Last Admin: 06/09/18 09:58 Dose: 1 mg Multivitamins/Vitamin C (Multi-Delyn Liquid) 15 ml PEG DAILY [facility] Neomycin/Polymyxin/Bacitracin (Neosporin Triple Antibiotic Oint) 0 gm TOP Q6H LIZ Last Admin: 06/09/18 10:19 Dose: 1 applic Thiamine HCl (Vitamin B1 Tab) 100 mg JT DAILY [facility] - Labs Labs: 06/09/18 06:30 06/09/18 06:30 PT 12.5 SECONDS (9.4-12.5) 06/08/18 09:11 INR 1.11 06/08/18 09:11 APTT 44.1 Seconds (26.9-38.3) H 06/08/18 09:11 Physical Exam - Constitutional Appears: No Acute Distress, Cachectic - Head Exam Head Exam: NORMAL INSPECTION, NORMOCEPHALIC - Eye Exam Eye Exam: EOMI - ENT Exam ENT Exam: Mucous Membranes Moist, Normal Exam - Neck Exam Neck exam: Positive for: Full Rom - Respiratory Exam Respiratory Exam: NORMAL BREATHING PATTERN - Cardiovascular Exam Cardiovascular Exam: REGULAR RHYTHM, +S1, +S2 - GI/Abdominal Exam GI & Abdominal Exam: Soft, tenderness noted around G tube insertion site but no fluctuance/induration. absent: Distended, Firm, Guarding - Extremities Exam Extremities exam: Positive for: normal inspection - Neurological Exam Neurological exam: Alert, CN II-XII Intact, Oriented x3 - Skin Skin Exam: Dry, Intact, Normal Color, Warm Assessment and Plan - Assessment and Plan (Free Text) Assessment: 52F w/PMH significant for esophageal CA s/p G tube placement with subsequent replacement of dislodged G tube. Plan: -Abd Xray 06/09 reviewed: contrast injected through G-tube, contrast can be seen in the small bowel. Balloon tip is inflated -further recommendations as per Dr. Ruiz -Surgery will sign off at this time, please reconsult as necessary.
[2018-06-09 16:10] VITALS: BP 98/71; PULSE 81; TEMP 98.2; O2SAT 98
--- NOTE | 2018-06-09 16:19 | CP.PCM.DIS ---
<Kory Burns - Last Filed: 06/09/18 16:23> Provider - Provider Date of Admission: 06/08/18 11:37 Attending physician: Aden Rivas MD Consults: 06/08/18 12:56 General Surgery Consult Routine Comment: Consulting Provider: Jeovany Ruiz Consulting Physician: Jeovany Ruiz Reason for Consult: dislodged feeding tube 06/08/18 14:36 Psychiatry Consult Routine Comment: Consulting Provider: Issa Gray Consulting Physician: Issa Gray Reason for Consult: depression Time Spent in preparation of Discharge (in minutes): 40 Diagnosis - Discharge Diagnosis (1) Dislodged jejunostomy tube Status: Acute Hospital Course - Lab Results Lab Results: Micro Results 06/08/18 09:40 Blood Blood Culture - Preliminary NO GROWTH AFTER 24 HOURS 06/08/18 09:11 Blood Blood Culture - Preliminary NO GROWTH AFTER 24 HOURS Most Recent Lab Values WBC 3.9 10^3/uL (4.5-11.0) L D 06/09/18 06:30 RBC 3.82 10^6/uL (3.5-6.1) 06/09/18 06:30 Hgb 12.5 g/dL (12.0-16.0) 06/09/18 06:30 Hct 37.9 % (36.0-48.0) 06/09/18 06:30 MCV 99.2 fl (80.0-105.0) 06/09/18 06:30 MCH 32.7 pg (25.0-35.0) 06/09/18 06:30 MCHC 33.0 g/dl (31.0-37.0) 06/09/18 06:30 RDW 14.6 % (11.5-14.5) H 06/09/18 06:30 Plt Count 65 10^3/uL (120.0-450.0) L 06/09/18 06:30 MPV 10.0 fl (7.0-11.0) 06/09/18 06:30 Neut % (Auto) 73.3 % (50.0-68.0) H 06/09/18 06:30 Lymph % (Auto) 11.6 % (22.0-35.0) L 06/09/18 06:30 [place] % (Auto) 10.9 % (1.0-6.0) H 06/09/18 06:30 Eos % (Auto) 3.9 % (1.5-5.0) 06/09/18 06:30 Baso % (Auto) 0.3 % (0.0-3.0) 06/09/18 06:30 Lymph # (Auto) 0.5 (1.2-3.4) L 06/09/18 06:30 [place] # (Auto) 0.4 (0.1-0.6) 06/09/18 06:30 Eos # (Auto) 0.2 (0.0-0.7) 06/09/18 06:30 Baso # (Auto) 0.01 K/mm3 (0.0-2.0) 06/09/18 06:30 Absolute Neuts (auto) 2.84 (1.4-6.5) 06/09/18 06:30 PT 12.5 SECONDS (9.4-12.5) 06/08/18 09:11 INR 1.11 06/08/18 09:11 APTT 44.1 Seconds (26.9-38.3) H 06/08/18 09:11 Sodium 138 mmol/L (132-148) 06/09/18 06:30 Potassium 3.6 mmol/L (3.6-5.0) 06/09/18 06:30 Chloride 107 mmol/L (98-107) 06/09/18 06:30 Carbon Dioxide 27 mmol/L (21-33) 06/09/18 06:30 Anion Gap 7 (10-20) L 06/09/18 06:30 BUN 5 mg/dL (7-21) L 06/09/18 06:30 Creatinine 0.5 mg/dl (0.7-1.2) L 06/09/18 06:30 Est GFR ( Amer) > 60 06/09/18 06:30 Est GFR (Non-Af Amer) > 60 06/09/18 06:30 Random Glucose 112 mg/dL (70-110) H 06/09/18 06:30 Calcium 7.6 mg/dL (8.4-10.5) L 06/09/18 06:30 Phosphorus 3.0 mg/dL (2.5-4.5) 06/09/18 06:30 Magnesium 1.8 mg/dL (1.7-2.2) 06/09/18 06:30 Total Bilirubin 0.4 mg/dL (0.2-1.3) 06/09/18 06:30 AST 19 U/L (14-36) 06/09/18 06:30 ALT 17 U/L (7-56) 06/09/18 06:30 Alkaline Phosphatase 69 U/L (38-126) 06/09/18 06:30 Total Protein 4.8 g/dL (5.8-8.3) L 06/09/18 06:30 Albumin 2.4 g/dL (3.0-4.8) L 06/09/18 06:30 Globulin 2.4 gm/dL 06/09/18 06:30 Albumin/Globulin Ratio 1.0 (1.1-1.8) L 06/09/18 06:30 Lipase 154 U/L (23-300) 06/08/18 09:11 Urine Color Light yellow (YELLOW) 06/08/18 11:08 Urine Appearance Clear (CLEAR) 06/08/18 11:08 Urine pH 5.5 (4.7-8.0) 06/08/18 11:08 Ur Specific [place] <= 1.005 (1.005-1.035) 06/08/18 11:08 Urine Protein Negative mg/dL (<30 mg/dL) 06/08/18 11:08 Urine Glucose (UA) Negative mg/dL (NEGATIVE) 06/08/18 11:08 Urine Ketones Negative mg/dL (NEGATIVE) 06/08/18 11:08 Urine Blood Negative (NEGATIVE) 06/08/18 11:08 Urine Nitrate Negative (NEGATIVE) 06/08/18 11:08 Urine Bilirubin Negative (NEGATIVE) 06/08/18 11:08 Urine Urobilinogen 0.2 E.U./dL (<1 E.U./dL) 06/08/18 11:08 Ur Leukocyte Esterase Negative Felicitas/uL (NEGATIVE) 06/08/18 11:08 Urine Opiates Screen Positive (NEGATIVE) H 06/08/18 11:08 Urine Methadone Screen Negative (NEGATIVE) 06/08/18 11:08 Ur Barbiturates Screen Negative (NEGATIVE) 06/08/18 11:08 Ur Phencyclidine Scrn Negative (NEGATIVE) 06/08/18 11:08 Ur Amphetamines Screen Negative (NEGATIVE) 06/08/18 11:08 U Benzodiazepines Scrn Negative (NEGATIVE) 06/08/18 11:08 U Oth Cocaine Metabols Negative (NEGATIVE) 06/08/18 11:08 U Cannabinoids Screen Negative (NEGATIVE) 06/08/18 11:08 Alcohol, Quantitative 99 mg/dL (0-10) H 06/08/18 10:00 - Hospital Course Hospital Course: Patient is a 52yo female 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 She uses G tube for tube feeds due to severe dysphagia and need for nutritional access. She admitted to tenderness around the G tube site. Patient has had 3 of 6 rounds of chemotherapy [last round Feb 2018] and 30+ rounds of radiation. Patient was admitted for replacement of her dislodged PEG tube. Surgery was consulted for replacement of PEG tube. PEG tube was replaced and placement was confirmed with abdominal xray with contrast through the tube. Hospital course was complicated by displacement of tube. S urgery again replaced tube and sutured tube in place. Placement was confirmed with abdominal xray and contrast. Patient was able to tolerate feedings through the PEG tube after replacement. Patient was subsequently discharged. Patient was advised to continue 7 bolus feedings as previously instructed to maintain adequate caloric intake. Close follow up with PMD, Dr. Pena, and oncologist, Dr. Cleveland, was strongly advised. Patient was counselled on risks of EtOH abuse and was advised complete cessation. Patient to be discharged on Thiamine, MV, and folate. Patient also given Miralax as needed for constipation and triple antibiotic ointment to apply around PEG site as needed. Discharge Exam - Head Exam Head Exam: ATRAUMATIC, NORMAL INSPECTION, NORMOCEPHALIC - Eye Exam Eye Exam: EOMI, Normal appearance, PERRL Pupil Exam: NORMAL ACCOMODATION - ENT Exam ENT Exam: Normal Exam - Respiratory Exam Respiratory Exam: Clear to PA & Lateral. absent: Rales, Rhonchi, Wheezes - Cardiovascular Exam Cardiovascular Exam: RRR, +S1, +S2. absent: Diastolic murmur, Gallop, Rubs, Systolic Murmur - GI/Abdominal Exam GI & Abdominal Exam: absent: Distended, Guarding, Rebound, Tenderness Additional comments: PEG tube in place, dressings c/d/i - Extremities Exam Extremities exam: normal inspection - Back Exam Back exam: NORMAL INSPECTION - Neurological Exam Neurological exam: Alert, Oriented x3 - Psychiatric Exam Psychiatric exam: Normal Affect, Normal Mood - Skin Skin Exam: Normal Color, Warm Discharge Plan - Discharge Medications Prescriptions: Bacitracin/Neomycin/Polymyxin [Neosporin Triple Antibiotic Oint] 1 drop TOP Q6H #1 tube Folic Acid 1 mg JT DAILY #30 tab Multivitamin UD 15 mL Oral [Multi-Delyn Liquid] 15 ml PEG DAILY #30 liq Polyethylene Glycol 3350 [Miralax] 17 gm PO DAILY PRN #10 ml PRN Reason: Constipation Thiamine [Vitamin B1 Tab] 100 mg JT DAILY #30 tab - Follow Up Plan Condition: STABLE Disposition: HOME/ ROUTINE Instructions: Percutaneous Endoscopic Gastrostomy (DC), How to Give a Tube Feeding Additional Instructions: - Follow up with Dr. Pena within 3-5 days - Follow up with Dr. Cleveland within 3-5 days - Recommend bolus feedings with osmolite 7 times per day as previously instructed - Take new medications as prescribed - Apply triple antibiotic ointment to pegtube site as needed - Stop all alcohol use - May use over the counter medications: ibuprofen or tylenol for pain - Return to ED if symptoms return Referrals: Shireen Pena MD [Family Provider] - Loni Cleveland MD [Staff Provider] - <Aden Rivas - Last Filed: 06/10/18 18:46> Provider - Provider Date of Admission: 06/08/18 11:37 Attending physician: Aden Rivas MD Consults: 06/08/18 12:56 General Surgery Consult Routine Comment: Consulting Provider: Jeovany Ruiz Consulting Physician: Jeovany Ruiz Reason for Consult: dislodged feeding tube 06/08/18 14:36 Psychiatry Consult Routine Comment: Consulting Provider: Issa Gray Consulting Physician: Issa Gray Reason for Consult: depression Hospital Course - Lab Results Lab Results: Micro Results 06/08/18 09:40 Blood Blood Culture - Preliminary NO GROWTH AFTER 48 HOURS 06/08/18 09:11 Blood Blood Culture - Preliminary NO GROWTH AFTER 48 HOURS Most Recent Lab Values WBC 3.9 10^3/uL (4.5-11.0) L D 06/09/18 06:30 RBC 3.82 10^6/uL (3.5-6.1) 06/09/18 06:30 Hgb 12.5 g/dL (12.0-16.0) 06/09/18 06:30 Hct 37.9 % (36.0-48.0) 06/09/18 06:30 MCV 99.2 fl (80.0-105.0) 06/09/18 06:30 MCH 32.7 pg (25.0-35.0) 06/09/18 06:30 MCHC 33.0 g/dl (31.0-37.0) 06/09/18 06:30 RDW 14.6 % (11.5-14.5) H 06/09/18 06:30 Plt Count 65 10^3/uL (120.0-450.0) L 06/09/18 06:30 MPV 10.0 fl (7.0-11.0) 06/09/18 06:30 Neut % (Auto) 73.3 % (50.0-68.0) H 06/09/18 06:30 Lymph % (Auto) 11.6 % (22.0-35.0) L 06/09/18 06:30 [place] % (Auto) 10.9 % (1.0-6.0) H 06/09/18 06:30 Eos % (Auto) 3.9 % (1.5-5.0) 06/09/18 06:30 Baso % (Auto) 0.3 % (0.0-3.0) 06/09/18 06:30 Lymph # (Auto) 0.5 (1.2-3.4) L 06/09/18 06:30 [place] # (Auto) 0.4 (0.1-0.6) 06/09/18 06:30 Eos # (Auto) 0.2 (0.0-0.7) 06/09/18 06:30 Baso # (Auto) 0.01 K/mm3 (0.0-2.0) 06/09/18 06:30 Absolute Neuts (auto) 2.84 (1.4-6.5) 06/09/18 06:30 PT 12.5 SECONDS (9.4-12.5) 06/08/18 09:11 INR 1.11 06/08/18 09:11 APTT 44.1 Seconds (26.9-38.3) H 06/08/18 09:11 Sodium 138 mmol/L (132-148) 06/09/18 06:30 Potassium 3.6 mmol/L (3.6-5.0) 06/09/18 06:30 Chloride 107 mmol/L (98-107) 06/09/18 06:30 Carbon Dioxide 27 mmol/L (21-33) 06/09/18 06:30 Anion Gap 7 (10-20) L 06/09/18 06:30 BUN 5 mg/dL (7-21) L 06/09/18 06:30 Creatinine 0.5 mg/dl (0.7-1.2) L 06/09/18 06:30 Est GFR ( Amer) > 60 06/09/18 06:30 Est GFR (Non-Af Amer) > 60 06/09/18 06:30 Random Glucose 112 mg/dL (70-110) H 06/09/18 06:30 Calcium 7.6 mg/dL (8.4-10.5) L 06/09/18 06:30 Phosphorus 3.0 mg/dL (2.5-4.5) 06/09/18 06:30 Magnesium 1.8 mg/dL (1.7-2.2) 06/09/18 06:30 Total Bilirubin 0.4 mg/dL (0.2-1.3) 06/09/18 06:30 AST 19 U/L (14-36) 06/09/18 06:30 ALT 17 U/L (7-56) 06/09/18 06:30 Alkaline Phosphatase 69 U/L (38-126) 06/09/18 06:30 Total Protein 4.8 g/dL (5.8-8.3) L 06/09/18 06:30 Albumin 2.4 g/dL (3.0-4.8) L 06/09/18 06:30 Globulin 2.4 gm/dL 06/09/18 06:30 Albumin/Globulin Ratio 1.0 (1.1-1.8) L 06/09/18 06:30 Lipase 154 U/L (23-300) 06/08/18 09:11 Urine Color Light yellow (YELLOW) 06/08/18 11:08 Urine Appearance Clear (CLEAR) 06/08/18 11:08 Urine pH 5.5 (4.7-8.0) 06/08/18 11:08 Ur Specific [place] <= 1.005 (1.005-1.035) 06/08/18 11:08 Urine Protein Negative mg/dL (<30 mg/dL) 06/08/18 11:08 Urine Glucose (UA) Negative mg/dL (NEGATIVE) 06/08/18 11:08 Urine Ketones Negative mg/dL (NEGATIVE) 06/08/18 11:08 Urine Blood Negative (NEGATIVE) 06/08/18 11:08 Urine Nitrate Negative (NEGATIVE) 06/08/18 11:08 Urine Bilirubin Negative (NEGATIVE) 06/08/18 11:08 Urine Urobilinogen 0.2 E.U./dL (<1 E.U./dL) 06/08/18 11:08 Ur Leukocyte Esterase Negative Felicitas/uL (NEGATIVE) 06/08/18 11:08 Urine Opiates Screen Positive (NEGATIVE) H 06/08/18 11:08 Urine Methadone Screen Negative (NEGATIVE) 06/08/18 11:08 Ur Barbiturates Screen Negative (NEGATIVE) 06/08/18 11:08 Ur Phencyclidine Scrn Negative (NEGATIVE) 06/08/18 11:08 Ur Amphetamines Screen Negative (NEGATIVE) 06/08/18 11:08 U Benzodiazepines Scrn Negative (NEGATIVE) 06/08/18 11:08 U Oth Cocaine Metabols Negative (NEGATIVE) 06/08/18 11:08 U Cannabinoids Screen Negative (NEGATIVE) 06/08/18 11:08 Alcohol, Quantitative 99 mg/dL (0-10) H 06/08/18 10:00 Attending/Attestation - Attestation I have personally seen and examined this patient.: Yes I have fully participated in the care of the patient.: Yes I have reviewed all pertinent clinical information, including history, physical exam and plan: Yes Notes (Text): 06/10/18 18:35 Medical record note made by the resident after discussion with my direction and input after the patient was personally seen and examined by me. I have reviewed the chart and agree that the record accurately reflects by personal performance of the history, physical exam, data review, and medical decision-making, in the course for the patient. I have also personally directed the plan of care. 52 years old female PMHx squamous cell carcinoma of the Larynx , status post G tube placement in 10/2017 and 02/2018, malnutrition, history of alcohol abuse, cirrhosis, anemia of chronic disease, depression, and anxiety presented with dislodged G tube for 1 day. S Surgery was consulted for replacement of PEG tube. PEG tube was replaced and placement was confirmed with abdominal xray with contrast through the tube. Hospital course was complicated by displacement of tube. Surgery again replaced tube and sutured tube in place. Placement was confirmed with abdominal xray and contrast. Patient was able to tolerate feedings through the PEG tube after replacement. Patient was advised to continue 7 bolus feedings as previously instructed to maintain adequate caloric intake. Close follow up with PMD, Dr. Pena, and oncologist, Dr. Cleveland, was strongly advised. Patient was counselled on risks of EtOH abuse and was advised complete cessation. Patient to be discharged on Thiamine, MV, and folate. Patient also given Miralax as needed for constipation and triple antibiotic ointment to apply around PEG site as needed. 06/10/18 18:44
== END 2018-06-09 18:40 | disposition home or self-care (01) | DRG 188 ==
LOC: ED 08:15 → ERH 11:37 → 3RNO 14:41
PROVIDERS: ADMIT Internal Medicine; ATTEND Internal Medicine
PROC: 0D2DXUZ Change Feeding Device in Lower Intestinal Tract, External Approach (ICD-10-PCS; principal; 2018-06-08)
DX: Z43.4 Encounter for attention to other artificial openings of digestive tract (principal); D69.6 Thrombocytopenia, unspecified; E46 Unspecified protein-calorie malnutrition; F14.90 Cocaine use, unspecified, uncomplicated; K70.30 Alcoholic cirrhosis of liver without ascites; D63.8 Anemia in other chronic diseases classified elsewhere; F32.9 Major depressive disorder, single episode, unspecified; F41.9 Anxiety disorder, unspecified; R13.10 Dysphagia, unspecified; Z85.01 Personal history of malignant neoplasm of esophagus; Z68.1 Body mass index [BMI] 19.9 or less, adult

== ENCOUNTER 2018-06-30 23:29 | Emergency (ER) | payer OTHER ==
[2018-06-30 23:30] VITALS: BMI 13.0
--- NOTE | 2018-07-01 01:04 | ED PDOC ---
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 Patient states her feeding tube becam e dislodged yesterday and attempted to put it back on her own but was unsuccessful. Patient notes associated discomfort to feeding tube site. Patient denies any fever, chills, chest pain, shortness of breath, nausea, vomiting, diarrhea, urinary symptoms, back pain, neck pain, headache, dizziness, or any other complaints. Symptom Onset: Gradual Symptom Course: Unchanged Activities at Onset: Light Context: Home Past Medical History - Provider Review Nursing Documentation Reviewed: Yes Primary Care Provider: Shireen Pena - Infectious Disease Hx of Infectious Diseases: None - Tetanus Immunization Tetanus Immunization: Unknown - Cardiac Hx Cardiac Disorders: No - Pulmonary Hx Respiratory Disorders: No - Neurological Hx Neurological Disorder: No - HEENT Other/Comment: dysphagia. SCC Hypopharynx - Renal Hx Renal Disorder: No - Endocrine/Metabolic Hx Endocrine Disorders: No - Hematological/Oncological Hx Blood Transfusions: Yes Hx Blood Transfusion Reaction: No - Integumentary Hx Dermatological Disorder: Yes - Musculoskeletal/Rheumatological Hx Falls: No - Gastrointestinal Hx Gastrointestinal Disorders: Yes Other/Comment: GI tube - Genitourinary/Gynecological Hx Genitourinary Disorders: No - Psychiatric Hx Anxiety: Yes Hx Depression: Yes Hx Substance Use: No - Surgical History Other/Comment: + g tube - Anesthesia Hx Anesthesia Reactions: No Hx Malignant Hyperthermia: No - Suicidal Assessment Feels Threatened In Home Enviroment: No Family/Social History - Physician Review Nursing Documentation Reviewed: Yes Family/Social History: Unknown Family HX Smoking Status: Never Smoked Hx Alcohol Use: Yes Amount per day: 6 Hx Substance Use: No Hx Substance Use Treatment: No Allergies/Home Meds Allergies/Adverse Reactions: Allergies No Known Allergies Allergy (Verified 06/08/18 14:16) Review of Systems - Physician Review All systems were reviewed & negative as marked: Yes - Review of Systems Constitutional: Normal. absent: Fevers Eyes: Normal ENT: Normal Respiratory: Normal. absent: SOB, Cough Cardiovascular: Normal. absent: Chest Pain Gastrointestinal: Abdominal Pain, Other (+G tube malfunction). absent: Diarrhea, Nausea, Vomiting Genitourinary Female: Normal. absent: Dysuria, Frequency, Hematuria, Urine Output Changes Musculoskeletal: Normal. absent: Back Pain, Neck Pain Skin: Normal. absent: Rash Neurological: Normal. absent: Headache, Dizziness Endocrine: Normal Hemo/Lymphatic: Normal Psychiatric: Normal Physical Exam Vital Signs Reviewed: Yes Temperature: Afebrile Blood Pressure: Normal Pulse: Regular Respiratory Rate: Normal Appearance: Positive for: Well-Appearing, Non-Toxic, Comfortable Pain Distress: None Mental Status: Positive for: Alert and Oriented X 3 - Systems Exam Head: Present: Atraumatic, Normocephalic Pupils: Present: PERRL Extroacular Muscles: Present: EOMI Conjunctiva: Present: Normal Mouth: Present: Moist Mucous Membranes Neck: Present: Normal Range of Motion Respiratory/Chest: Present: Clear to Auscultation, Good Air Exchange. No: Respiratory Distress, Accessory Muscle Use Cardiovascular: Present: Regular Rate and Rhythm, Normal S1, S2. No: Murmurs Abdomen: Present: Tenderness (Tenderness around feeding tube site), Feeding Tubes (Dislodged feeding tube). No: Distention, Peritoneal Signs Back: Present: Normal Inspection Upper Extremity: Present: Normal Inspection. No: Cyanosis, Edema Lower Extremity: Present: Normal Inspection. No: Edema Neurological: Present: GCS=15, CN II-XII Intact, Speech Normal Skin: Present: Warm, Dry, Normal Color. No: Rashes Psychiatric: Present: Alert, Oriented x 3, Normal Insight, Normal Concentration Medical Decision Making ED Course and Treatment: 07/01/18 00:20 Impression: 52 year old female complaining of feeding tube malfunction. States feeding tube became dislodged when attempt to feed yesterday. Plan: -- G-tube placement -- Reassess and disposition Progress Notes: Case discussed with medical surgical tech fabrication operator, who is aware and agrees to evaluate pt. 07/01/18 01:40 Attempt at replacing feeding tube were unsuccessful. Pt state she does not wish to stay in the hospital and will return tomorrow. - Scribe Statement The provider has reviewed the documentation as recorded by the Holly Uribe Provider Scribe Attestation: All medical record entries made by the Scribe were at my direction and personally dictated by me. I have reviewed the chart and agree that the record accurately reflects my personal performance of the history, physical exam, medical decision making, and the department course for this patient. I have also personally directed, reviewed, and agree with the discharge instructions and disposition. Disposition/Present on Arrival - Present on Arrival Any Indicators Present on Arrival: No History of DVT/PE: No History of Uncontrolled Diabetes: No Urinary Catheter: No History of Decub. Ulcer: No History Surgical Site Infection Following: None - Disposition Have Diagnosis and Disposition been Completed?: Yes Diagnosis: Gastrostomy tube dysfunction Disposition: HOME/ ROUTINE Disposition Time: 01:50 Condition: GOOD Discharge Instructions (ExitCare): How to Care for Your PEG Tube Additional Instructions: follow up with dr tan in Referrals: Shireen Pena MD [Primary Care Provider] - Follow up with primary Forms: [employer] (Turkmen)
[2018-07-01] MEDS ORDERED: Oxycodone/Acetaminophen 5/325 mg Tab PO STA (01:45)
--- NOTE | 2018-07-01 02:00 | CP.PCM.CON ---
History of Present Illness - History of Present Illness History of Present Illness: General Surgery Consult HPI: 52F presents to the ED complaining of feeding J tube dislodgement. Her feeding tube became dislodged yesterday morning and attempted to replace it on her own but was unsuccessful. She reports discomfort to feeding tube site since surgery. Denies any fever, chills, chest pain, shortness of breath, nausea, vomiting, diarrhea, urinary symptoms, back pain, neck pain, headache, dizziness, or any other complaints. She states that if she does not need the tube , she does not want it replaced, and if it requires surgery, she does not want it at this time. 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 PSH: ankle surgery, G tube placement in 10/2017 FH: Mother from [place]. Father from throat cancer SH: Denies tobacco use. 6-10 beers for 30 years. cocaine for 4-5 years All: NKDA Meds: See APR PMD: Dr. Pena Oncology: Dr. Cleveland Review of Systems - Review of Systems All systems: reviewed and no additional remarkable complaints except (as per HPI.) Past Patient History - Infectious Disease Hx of Infectious Diseases: None - Tetanus Immunizations Tetanus Immunization: Unknown - Past Medical History & Family History Past Medical History?: Yes - Past Social History Smoking Status: Never Smoked - CARDIAC Hx Cardiac Disorders: No - PULMONARY Hx Respiratory Disorders: No - NEUROLOGICAL Hx Neurological Disorder: No - HEENT Other/Comment: dysphagia. SCC Hypopharynx - RENAL Hx Chronic Kidney Disease: No - ENDOCRINE/METABOLIC Hx Endocrine Disorders: No - HEMATOLOGICAL/ONCOLOGICAL Hx Blood Transfusions: Yes Hx Blood Transfusion Reaction: No - INTEGUMENTARY Hx Dermatological Problems: Yes - MUSCULOSKELETAL/RHEUMATOLOGICAL Hx Falls: No - GASTROINTESTINAL Hx Gastrointestinal Disorders: Yes Other/Comment: GI tube - GENITOURINARY/GYNECOLOGICAL Hx Genitourinary Disorders: No - PSYCHIATRIC Hx Anxiety: Yes Hx Depression: Yes Hx Substance Use: No - SURGICAL HISTORY Other/Comment: + g tube - ANESTHESIA Hx Anesthesia Reactions: No Hx Malignant Hyperthermia: No Meds Allergies/Adverse Reactions: Allergies Allergy/AdvReac Type Severity Reaction Status Date / Time No Known Allergies Allergy Verified 06/08/18 14:16 Physical Exam - Constitutional Appears: Non-toxic, No Acute Distress - Head Exam Head Exam: ATRAUMATIC, NORMOCEPHALIC - Eye Exam Eye Exam: EOMI. absent: Scleral icterus - ENT Exam ENT Exam: Mucous Membranes Moist Additional comments: trachea midline - Respiratory Exam Respiratory Exam: NORMAL BREATHING PATTERN. absent: Respiratory Distress - Cardiovascular Exam Cardiovascular Exam: REGULAR RHYTHM. absent: Bradycardia, Tachycardia - GI/Abdominal Exam GI & Abdominal Exam: Soft, Tenderness (mild around J tube site). absent: Distended, Firm, Guarding, Rebound, Rigid Additional comments: Midline scar. J tube site with trace erythema and blood spotting - Rectal Exam Rectal Exam: Deferred - Extremities Exam Extremities exam: Negative for: calf tenderness, pedal edema - Back Exam Back exam: absent: CVA tenderness (L), CVA tenderness (R) - Neurological Exam Neurological exam: Alert, Oriented x3 - Skin Skin Exam: Dry, Warm Assessment & Plan - Assessment and Plan (Free Text) Assessment: 52F with dislodged J tube. Plan: Unable to find lumen with 14 and 16 nigerien foleys. Had a 20 nigerien J tube. Lumen of tract was probed open to a depth of 2cm without issue but would not advance further in any direction, Foleys tried were with both straight and coude tip. Discussed admission to plan for replacement but pt declined to stay in the hospital overnight. Says she will return in the morning for further attempts to replace the tube. I explained that the tract may become completely sealed and would possibly require surgery to be replace. She understands this but also says she would not want surgery again. Will follow up upon her return in the morning. Will D/W Dr. Joseph Shaw PGY4
== END 2018-07-01 02:10 | disposition home or self-care (01) ==
LOC: ED 23:29
DX: K94.23 Gastrostomy malfunction (principal)

== ENCOUNTER 2018-07-04 09:04 | Emergency (ER) | payer OTHER ==
[2018-07-04 09:04] VITALS: BMI 13.0
[2018-07-04 09:20] VITALS: RESP 18
--- NOTE | 2018-07-04 09:50 | ED PDOC ---
Arrival/HPI - General Historian: Patient - History of Present Illness Narrative History of Present Illness (Text): 07/04/18 09:46 Pt is a 52 yo female with a PMH of SCC of oropharynx, history of alcohol abuse, cirrosis, anemia of chronic disease, and depression/anxiety who presents with a 1 day history of left sided rib pain which started yesterday. Pt was eating a lollipop when she aspirated and began coughing. Pt felt her rib started hurting during the coughing fit. She rates the pain 7/10. Denies chest pain, shortness of breath, or sputum production. Time/Duration: 24 hours Symptom Onset: Sudden Symptom Course: Unchanged Quality: Stabbing Severity Level: 7 Activities at Onset: Rest Context: Sitting <Torito Ferrer - Last Filed: 07/04/18 13:26> <Jake Brito - Last Filed: 07/04/18 14:06> - General Chief Complaint: Rib Injury Past Medical History - Infectious Disease Hx of Infectious Diseases: None - Tetanus Immunization Tetanus Immunization: Unknown - Reproductive Menopause: No - Cardiac Hx Cardiac Disorders: No - Pulmonary Hx Respiratory Disorders: No - Neurological Hx Neurological Disorder: No - HEENT Other/Comment: dysphagia. SCC Hypopharynx - Renal Hx Renal Disorder: No - Endocrine/Metabolic Hx Endocrine Disorders: No - Hematological/Oncological Hx Blood Transfusions: Yes Hx Blood Transfusion Reaction: No - Integumentary Hx Dermatological Disorder: Yes - Musculoskeletal/Rheumatological Hx Falls: No - Gastrointestinal Hx Gastrointestinal Disorders: Yes Other/Comment: GI tube - Genitourinary/Gynecological Hx Genitourinary Disorders: No - Psychiatric Hx Anxiety: Yes Hx Depression: Yes Hx Substance Use: No - Surgical History Other/Comment: + g tube/ THROAT CA - Anesthesia Hx Anesthesia Reactions: No Hx Malignant Hyperthermia: No - Suicidal Assessment Feels Threatened In Home Enviroment: No <Torito Ferrer - Last Filed: 07/04/18 13:26> Family/Social History Family/Social History: No Known Family HX Smoking Status: Never Smoked Hx Alcohol Use: Yes Amount per day: 6 Hx Substance Use: No Hx Substance Use Treatment: No <Torito Ferrer - Last Filed: 07/04/18 13:26> Allergies/Home Meds <Torito Ferrer - Last Filed: 07/04/18 13:26> <Jake Brito Nancy - Last Filed: 07/04/18 14:06> Allergies/Adverse Reactions: Allergies No Known Allergies Allergy (Verified 06/08/18 14:16) Review of Systems - Review of Systems Constitutional: Normal Eyes: Normal ENT: Normal Respiratory: Cough. absent: SOB Cardiovascular: Normal Gastrointestinal: Normal Musculoskeletal: Normal Skin: Normal Neurological: Normal Endocrine: Normal Hemo/Lymphatic: Normal Psychiatric: Normal <Torito Ferrer Rodrigue - Last Filed: 07/04/18 13:26> Physical Exam Vital Signs Reviewed: Yes Vital Signs Temp Pulse Resp BP Pulse Ox 07/04/18 09:31 98.3 F 82 18 101/67 96 07/04/18 09:14 98.3 F 82 18 10167 96 Temperature: Afebrile Blood Pressure: Normal Pulse: Regular Respiratory Rate: Normal Appearance: Positive for: Well-Appearing Mental Status: Positive for: Alert and Oriented X 3 - Systems Exam Head: Present: Atraumatic, Normocephalic Pupils: Present: PERRL Extroacular Muscles: Present: EOMI Mouth: Present: Moist Mucous Membranes Neck: Present: Normal Range of Motion Respiratory/Chest: Present: Clear to Auscultation, Good Air Exchange, Tender to Palpation Cardiovascular: Present: Regular Rate and Rhythm, Normal S1, S2 Abdomen: Present: Tenderness, Normal Bowel Sounds. No: Distention Upper Extremity: Present: Normal Inspection Lower Extremity: Present: Normal Inspection Neurological: Present: GCS=15, CN II-XII Intact Skin: Present: Warm, Dry, Normal Color Psychiatric: Present: Alert, Oriented x 3 <Torito Ferrer Rodrigue - Last Filed: 07/04/18 13:26> Vital Signs Temp Pulse Resp BP Pulse Ox 07/04/18 12:57 98.0 F 69 18 105/69 98 07/04/18 10:36 75 18 103/68 97 07/04/18 09:31 98.3 F 82 18 101/67 96 07/04/18 09:14 98.3 F 82 18 101/67 96 <Jake Brito Nancy - Last Filed: 07/04/18 14:06> Medical Decision Making ED Course and Treatment: 07/04/18 09:[address] chest abdomen and pelvis 07/04/18 10:44 EKG low voltage, NSR, no signs of ST or T wave abnormalities 07/04/18 13:18 CT shows questionable nondisplaced fracture of the right anterolateral 4th rib. No Pneumothorax. Thick-walled urinary bladder and urothelial enhancement of both ureters with mild distension suggestive of cystitis with bilateral ascending urinary tract infections. will treat UTI with cipro 500 BID for 7 days Pt seen, examined, assessment and plan discussed with Dr Alisha Ferrer PGY1 - RAD Interpretation Radiology Orders: 07/04/18 09:43 RIBS BILATERAL W/PA CHEST [RAD] Stat - Medication Orders Current Medication Orders: Ketorolac Tromethamine (Toradol) 30 mg IVP STAT STA Stop: 07/04/18 09:46 <Torito Ferrer Rodrigue - Last Filed: 07/04/18 13:26> ED Course and Treatment: Seen and examined with resident. 52 y/o F p/w L sided rib cage pain after coughing while eating lollipop. On exam, tenderness over this area. No tenderness to R sided thorax. - Lab Interpretations Lab Results: Total Bilirubin 0.3 mg/dL (0.2-1.3) 07/04/18 10:00 AST 54 U/L (14-36) H D 07/04/18 10:00 ALT 32 U/L (7-56) 07/04/18 10:00 Alkaline Phosphatase 70 U/L (38-126) 07/04/18 10:00 Total Protein 5.6 g/dL (5.8-8.3) L 07/04/18 10:00 Albumin 2.9 g/dL (3.0-4.8) L 07/04/18 10:00 Globulin 2.7 gm/dL 07/04/18 10:00 Albumin/Globulin Ratio 1.1 (1.1-1.8) 07/04/18 10:00 - RAD Interpretation Radiology Orders: 07/04/18 09:53 CHEST,ABD,PEL W/IV CONT ONLY [CT] Stat - Medication Orders Current Medication Orders: Discontinued Medications Ketorolac Tromethamine (Toradol) 30 mg IVP STAT STA Stop: 07/04/18 09:46 Last Admin: 07/04/18 10:00 Dose: 30 mg MAR Pain Assessment Document 07/04/18 10:00 DEIDRE ([facility] 07[facility]04/18 10:19 [id number] Pain Reassessment Is this a pain reassessment? No Sleep Is patient sleeping during reassessment? No Presence of Pain Presence of Pain Yes IVP Administration Document 07/04/18 10:00 DEIDRE (Rec: 07/04/18 10:19 [place] [id number]) Charges for Administration # of IVP Administrations 1 <Jake Brito - Last Filed: 07/04/18 14:06> - PA / MARKET EDITOR / Resident Statement / has reviewed & agrees with the documentation as recorded. / has examined the patient and agrees with the treatment plan. <Torito Ferrer - Last Filed: 07/04/18 13:26> Disposition/Present on Arrival - Present on Arrival Any Indicators Present on Arrival: No History of DVT/PE: No History of Uncontrolled Diabetes: No Urinary Catheter: No History of Decub. Ulcer: No History Surgical Site Infection Following: None - Disposition Have Diagnosis and Disposition been Completed?: Yes Disposition Time: 13:21 Patient Plan: Discharge <Torito Ferrer - Last Filed: 07/04/18 13:26> <Jake Brito T - Last Filed: 07/04/18 14:06> - Disposition Diagnosis: UTI (urinary tract infection) Disposition: HOME/ ROUTINE Patient Problems: Current Active Problems Problem Status Onset UTI (urinary tract infection) Acute Condition: GOOD Discharge Instructions (ExitCare): Urinary Tract Infection, Adult (DC) Prescriptions: Ciprofloxacin HCl [Cipro] 500 mg PO BID #14 tablet Referrals: Shireen Pena MD [Primary Care Provider] - Follow up with primary Forms: [employer] ([place]ic)
[2018-07-04 10:54] LABS: BASO # 0.02 K/mm3 (0.0-2.0); BASO % 0.5 % (0.0-3.0); EOS # 0.1 (0.0-0.7); EOS % 2.7 % (1.5-5.0); HEMOGLOBIN 13.5 g/dL (12.0-16.0); LYMPH # 0.6 (1.2-3.4); LYMPH % 14.9 % (22.0-35.0); MEAN CELL VOLUME 96.2 fl (80.0-105.0); MEAN CORPUSCULAR HEMOGLOBIN 32.1 pg (25.0-35.0); MEAN CORPUSCULAR HGB CONC 33.4 g/dl (31.0-37.0); MEAN PLATELET VOLUME 10.4 fl (7.0-11.0); MONO # 0.3 (0.1-0.6); MONO % 6.5 % (1.0-6.0); RBC 4.2 10^6/uL (3.5-6.1); RED CELL DISTRIBUTION WIDTH 12.7 % (11.5-14.5); WHITE BLOOD COUNT 4.2 10^3/uL (4.5-11.0)
[2018-07-04 11:02] LABS: ALB/GLOB RATIO 1.1 (1.1-1.8); ALBUMIN 2.9 g/dL (3.0-4.8); ALT/SGPT 32 U/L (7-56); AST/SGOT 54 U/L (14-36); BLOOD UREA NITROGEN 5 mg/dL (7-21); CALCIUM 8.2 mg/dL (8.4-10.5); GFR NON-AFRICAN AMERICAN > 60
[2018-07-04 12:57] VITALS: BP 105/69; PULSE 69; TEMP 98; O2SAT 98
--- NOTE | 2018-07-04 12:59 | CT ---
Date of service: 07/04/2018 PROCEDURE: CT Chest, Abdomen and Pelvis with intravenous contrast HISTORY: rib and abdomen tenderness COMPARISON: None available. TECHNIQUE: IV dose administered: 150 mL Omnipaque 350 Radiation dose: Total exam DLP = 261.87 mGy-cm. This CT exam was performed using one or more of the following dose reduction techniques: Automated exposure control, adjustment of the mA and/or kV according to patient size, and/or use of iterative reconstruction technique. FINDINGS: CT CHEST WITH CONTRAST: LUNGS: Clear. No nodule, mass or consolidation. MEDIASTINUM: Right internal jugular access chest port with catheter tip at the cavoatrial junction. Normal caliber aorta and pulmonary arterial trunk. No aortic dissection. Normal size heart. LYMPH NODES: Unremarkable. PLEURA: Unremarkable. No pneumothorax. No pleural fluid. BONES: Questionable fracture of the right anterolateral 4th rib. OTHER FINDINGS: None. CT ABDOMEN AND PELVIS: LIVER: Unremarkable. No gross lesion or ductal dilatation. GALLBLADDER AND BILE DUCTS: Unremarkable. PANCREAS: Unremarkable. No gross lesion or ductal dilatation. SPLEEN: Unremarkable. ADRENALS: Unremarkable. No mass. KIDNEYS AND URETERS: Mild urothelial enhancement of both ureters with mild ureteral distention. No hydronephrosis. No solid mass. VASCULATURE: No aortic atherosclerotic calcification or mural plaque present. Unremarkable. No aortic aneurysm. BOWEL: Unremarkable. No obstruction. No gross mural thickening. APPENDIX: No findings to suggest acute appendicitis. PERITONEUM: Left lower quadrant sinus tract from previous jejunostomy. No free fluid. No free air. LYMPH NODES: Unremarkable. No enlarged lymph nodes. BLADDER: Thick-walled urinary bladder. REPRODUCTIVE: Unremarkable. BONES: No acute fracture. OTHER FINDINGS: None. IMPRESSION: Questionable nondisplaced fracture of the right anterolateral 4th rib. No pneumothorax. Thick-walled urinary bladder and urothelial enhancement of both ureters with mild distension suggestive of cystitis with bilateral ascending urinary tract infections.
--- NOTE | 2018-07-05 11:29 | CARD ---
APPROVED REPORT Date of service: 07/04/2018 EKG Measurement Heart [id number] <Conclusion> Normal sinus rhythm Low voltage QRS Borderline ECG
== END 2018-07-04 14:18 | disposition home or self-care (01) ==
LOC: ED 09:04
DX: N39.0 Urinary tract infection, site not specified (principal); D63.8 Anemia in other chronic diseases classified elsewhere; Z85.818 Personal history of malignant neoplasm of other sites of lip, oral cavity, and pharynx; Z93.1 Gastrostomy status
CPT/HCPCS: 71260; 74177; 80053; 85025; 93005; 96374; 99283; J1885; Q9967

== ENCOUNTER 2018-07-07 18:18 | Outpatient (CLI) | payer OTHER | END 2018-07-07 18:19 | disposition home or self-care (01) | LOC: OPLAB 18:18 ==